=== PATIENT | male | born 1970 | race Caucasian/White ===

== ENCOUNTER 2019-05-15 04:03 | Inpatient (IN) | payer OTHER, SELFPAY ==
[2019-05-15] VITALS (16 sets, daily range): BP systolic 122–173; BP diastolic 54–89; PULSE 86–104; RESP 16–23; TEMP 37.2–39.3; O2SAT 86–95; BMI 51.0
--- NOTE | ~2019-05-15 | US_ITS ---
EXAMINATION: US venous doppler LE EXAM DATE: 05/15/2019 10:13 INDICATION: DVT. Hypoxia, respiratory abnormality. TECHNIQUE: Multiple grayscale, color flow and Doppler images of the lower extremity deep venous syste ms bilaterally were obtained and reviewed. There is no prior study for comparison. FINDINGS: Right side: The right common femoral, femoral and profunda veins demonstrate normal color flow, respi ratory variation, augmentation and compressibility. Compressibility, color flow confirmed within the right popliteal, posterior tibial, peroneal, and greater saphenous veins. Left side: The left common femoral, femoral and profunda veins demonstrate normal color flow, respira tory variation, augmentation and compressibility. Compressibility, color flow confirmed within the l eft popliteal, posterior tibial, peroneal, and greater saphenous veins. IMPRESSION: No lower extremity deep venous thrombosis bilaterally. Reviewed, dictated and finalized at location B. HER OPERATOR
--- NOTE | ~2019-05-15 | XR_ITS ---
EXAMINATION: XR chest 1V portable DATE: 05/15/2019 05:03 INDICATION: Hypoxia. Fever. TECHNIQUE: A single frontal view of the chest was obtained. COMPARISON: Chest CT 05/15/2019 FINDINGS: The lung volumes are small. There is mild atelectasis in the mid and lower lung zones. No p leural effusion or pneumothorax. Cardiomegaly is noted. IMPRESSION: 1. Small lung volumes with mild atelectasis in the mid and lower lung zones. 2. Cardiomegaly. Reviewed, dictated and finalized at location A. QUALITY SPECIALIST
--- NOTE | ~2019-05-15 | CT_ITS ---
EXAMINATION: CTA chest DATE: 05/15/2019 05:55 INDICATION: Hypoxia. TECHNIQUE: Computed tomographic angiography (CTA) of the chest was performed with 100 mL Omnipaque-35 0 intravenous contrast. Automated exposure control and iterative reconstruction technique were employ ed. The dose-length product was 1013.02 mGy-cm. Maximum intensity projection 3D-reconstructions of th e aorta and other arteries were constructed by the technologist on a separate workstation. COMPARISON: Chest single view 05/15/2019 FINDINGS: Motion artifact is noted. The lung volumes are small. A calcified left lung nodule and calc ified left hilar lymph nodes are consistent with old granulomatous disease. There is mild atelectasis bilaterally. No pleural effusion. Cardiomegaly is noted. No pericardial effusion. There is poor cont rast opacification. Thoracic aorta is normal in caliber. There is bilateral gynecomastia. There is mi ld mediastinal lymphadenopathy. For example, a right paratracheal node measures 18 x 14 mm. There are bridging endplate osteophytes at multiple levels in the spine, consistent with diffuse idiopathic sk eletal hyperostosis (DISH). There is moderate thoracic spondylosis. IMPRESSION: 1. Normal caliber thoracic aorta. Poor contrast opacification, which is nondiagnostic for evaluation of the pulmonary arteries. If there is clinical concern for pulmonary embolism, repeat CTA is recomme nded. 2. Small lung volumes with mild atelectasis. 3. Mild mediastinal lymphadenopathy, likely reactive. 4. Cardiomegaly. Reviewed, dictated and finalized at location A. OR CLINICAL SAS PROGRAMMER IMPRESSION: 1. Normal caliber thoracic aorta. Poor contrast opacification, which is nondiag nostic for evaluation of the pulmonary arteries. If there is clinical concern f or pulmonary embolism, repeat CTA is recommended. 2. Small lung volumes with mild atelectasis. 3. Mild mediastinal lymphadenopathy, likely reactive. 4. Cardiomegaly.
--- NOTE | 2019-05-15 03:59 | ED.GENADULT ---
HPI - General Adult General Chief complaint: Fever Stated complaint: fever Source: patient and EMS Mode of arrival: EMS Limitations: no limitations History of Present Illness HPI narrative: Patient is a 48-year-old male who presents from [facility] for evaluation of fever, increasing oxygen requirement. Patient reportedly has a history of diabetic foot ulcers, he is seen at outside nursing and rehabilitation, and developed fever to 105 ?F this evening per the nursing staff. Patient was given a gram of Tylenol around 1:45 in the morning, but was noted to have hypoxia. Patient reportedly desaturated down to the 70s on room air, and typically only requires oxygen at night. Patient denies any chest pain or shortness of breath. He is alert and oriented to person, place, and time, he reports fever and feeling warm, but denies any belly pain. Patient is able to ambulate from the stretcher to the bed. Related Data Allergies Allergy/AdvReac Type Severity Reaction Status Date / Time No Known Allergies Allergy Verified 05/15/19 04:15 Review of Systems Review of Systems: Narrative: CONSTITUTIONAL: Reports fever and chills EYES: Denies visual changes, redness, or discharge. ENT: Denies rhinorrhea, congestion, sore throat, or otalgia. CARDIOVASCULAR: Denies chest pain, palpitations, reports leg swelling bilaterally RESPIRATORY: Denies cough or dyspnea. GASTROINTESTINAL: Denies abdominal pain, nausea, vomiting, or diarrhea. GENITOURINARY: Denies dysuria or hematuria. SKIN: Reports wounds to bilateral feet MUSCULOSKELETAL: Denies back pain, joint pain, or myalgia. NEUROLOGIC: Denies headache, numbness, or weakness. 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 EYES: PERRLA and EOMI. ENT: Nares clear, no rhinorrhea or epistaxis. Mucous membranes dry, lips somewhat purplish in appearance NECK: Supple. CHEST: No respiratory distress, coarse breath sounds bilaterally, no use of accessory muscles to breathe, no wheezing HEART: Tachycardic rate and regular rhythm. No murmur heard. Normal peripheral pulses. ABDOMEN: Obese abdomen, ventral abdominal wall hernia. Soft, nontender, nondistended, normal active bowel sounds. EXTREMITIES: Normal range of motion. Pitting edema to the knees bilaterally. SKIN: Erythema to the bilateral great toes, with evidence of ingrown toe removal surgeries bilaterally. No purulent discharge. NEURO: No focal deficits. Alert and oriented x3. Patient is ambulatory with a slightly unsteady gait, able to transfer himself. Does require partial assist. Course Course Emergency Course: Patient presented to the emergency department for evaluation of fever, increased oxygen requirement, per staff at the facility patient is not on any oxygen throughout the day and only requires 2 L at night for sleep apnea. At the time of initial assessment, ABCs are intact and vital signs are stable. Patient with tachycardia, very mild tachypnea, no respiratory distress. He is febrile. His oxygen saturation on room air is 66% with a good waveform. Patient was placed on 6 L nasal cannula with improvement in oxygen saturation to 93%. Patient has no wheezing, has very shallow aeration, very difficult to appreciate due to patient's body habitus. He has not been reporting any cough, unknown if the patient has some form of developmental delay, but is also a little bit difficult to obtain a history from him. He is denying any pain really any symptoms aside fever. Patient does have chronic venou
--- NOTE | 2019-05-15 04:10 | ECG_ITS ---
Measurements Intervals [place] Rate: 99 P: 24 MO: 116 QRS: 83 QRSD: 106 T: 30 QT: 327 QTc: 420 Interpretive Statements SINUS RHYTHM WITH SHORT MO INTERVAL BORDERLINE ECG Electronically Signed On 05-15-2019 6:49:07 SMALL ENGINE TRAINER by Abel Ortiz D.O.
[2019-05-15] MEDS: SODIUM CHLORIDE 0.9% IV 1,000 ML 999 ML IV CONT ×2 (04:33→04:35)
--- NOTE | 2019-05-15 04:35 | PC.NURSE ---
Per EDP Chel, begin NS bolus at 2000mL NS STAT.
[2019-05-15 04:40] LABS: Basophils Absolute Auto 0.1 K/mm3 (0.0-0.1); Basophils Percent Auto 0.4 % (0.2-1.2); Eosinophils Absolute Auto 0.4 K/mm3 (0-0.3); Eosinophils Percent Auto 2.3 % (0-4.4); Hematocrit 41.3 % (42.0-52.0); Hemoglobin 12.4 g/dL (14.0-18.0); Immature Granulocyte Percent A 0.6 % (0-0.5); Lymphocytes Absolute Auto 0.67 K/mm3 (0.9-3.2); Lymphocytes Percent Auto 4.2 % (18.3-44.2); Mean Corpuscular Hemoglobin 26.9 pg (26-34); Mean Corpuscular Volume 89.6 fl (80-100); Mean Platelet Volume 11.6 fl (7.4-10.4); Monocytes Absolute Auto 1.1 K/mm3 (0.1-0.6); Monocytes Percent Auto 7.1 % (2.6-8.5); Neutrophils Absolute Auto 13.6 K/mm3 (1.3-6.7); Neutrophils Percent Auto 85.4 % (45.5-73.1); Platelet Count Result 266 k/mm3 (150-375); Red Blood Count 4.61 M/mm3 (4.6-6.20); Red Cell Distribution Width 14.6 % (11.5-14.5)
[2019-05-15 04:44] LABS: Alveolar/Arterial O2 Gradient 187.2 mmHg; Base Excess ABG 4.4 mEq/l (+/-2.0); Carboxyhemoglobin 0.7 % THb (0-2.0); Fractional Inspired Oxygen 44 %; HCO3 ABG 30.9 mEq/l (22.0-26.0); Methemoglobin ABG 0.4 %THb (0-1.5); Oxygen Content ABG 16.4 %vol (16.0-22.0); Oxygen Saturation ABG 91.7 % (95.0-100.0); Oxyhemoglobin 90.3 % THb (90.0-100.0); PCO2 ABG 54.5 mmHg (35.0-45.0); PO2 ABG 64.4 mmHg (80.0-100.0); PO2 FiO2 Ratio Arterial Blood 1.46 %; Reduced Hemoglobin 8.6 %THb (0-5.0); Total Hemoglobin 12.9 g/dL (12.0-18.0); pH ABG 7.372 (7.350-7.450)
[2019-05-15 04:45] LABS: Device NASAL CANNULA; Modified Allen's Test Pass; Site Drawn RIGHT RADIAL
[2019-05-15 04:52] LABS: Lactic Acid Reflex 1.5 mmol/L (0.7-2.1)
--- NOTE | 2019-05-15 04:55 | PC.NURSE ---
Patient in radiology.
[2019-05-15 05:37] LABS: Blood Urea Nitrogen 22 mg/dL (8-26); Estimated CRCL calculation 114 ml/min; Estimated Glomerular Filt Rate > 60
[2019-05-15 05:45] LABS: INR 3.2; Partial Thromboplastin Time 38.9 SECONDS (22.3-36.8); Prothrombin Time 32.1 Seconds (11.1-14.7)
[2019-05-15 05:49] LABS: Alanine Aminotransferase 17 U/L (4-50); Albumin Level 3.3 g/dL (3.5-5.1); Alkaline Phosphatase 105 U/L (38-126); Aspartate Amino Transferase 24 U/L (17-59); Bilirubin,Total 0.5 mg/dL (0.2-1.3); Blood Urea Nitrogen 19 mg/dL (9-20); CRP 1.6 mg/dL (<1.0); Calcium 7.8 mg/dL (8.4-10.2); Carbon Dioxide 30 mmol/L (22-30); Chloride 100 mmol/L (98-107); Estimated CRCL calculation 114 ml/min; Estimated Glomerular Filt Rate > 60; Glucose 130 mg/dL (75-110); Potassium 4.7 mmol/L (3.4-5.0); Sodium 140 mmol/L (137-145)
[2019-05-15 05:55] LABS: NT Pro B Type Natriuretic Pept 293 PG/ML (5-100)
[2019-05-15 05:59] LABS: Troponin I < 0.012 ng/mL (0.000-0.034)
[2019-05-15 06:24] LABS: Add Urine Microscopic? YES; Appearance Urine Clear (Clear); Bacteria Urine Trace /hpf; Bilirubin Urine Negative (Negative); Blood Urine 1+ (Negative); Color Urine Yellow (Yellow); Glucose Urine UA Negative (Negative); Ketones Urine Negative (Negative); Leukocyte Esterase Ur Negative LEU/UL (Negative); Nitrate Urine Negative (Negative); Protein Urine 3+ mg/dL (Negative); Specific Grav Ur 1.013 (1.001-1.035); Urobilinogen Urine Negative mg/dL (<2.0)
--- NOTE | 2019-05-15 07:52 | ADMGEN ---
This patient, Ulices Canas, was admitted to 3 [facility] Surg Room 317-01. Patient/family oriented to hospital policies and general routines including ID bracelet, bed and alarms, visiting hours, pain management, procedures, bathroom and other care routines, personal items, smoking policy, room service/diet, and visiting hours. Valuables list has been completed. Information on how to activate the Rapid Response Team has been discussed. Patient/Family are encouraged to report perceived risks to care and to ask questions if they do not understand what they are told or what they should do.
[2019-05-15 11:23] LABS: Basophils Absolute Auto 0.1 K/mm3 (0.0-0.1); Basophils Percent Auto 0.5 % (0.2-1.2); Eosinophils Percent Auto 0.1 % (0-4.4); Hematocrit 39.1 % (42.0-52.0); Hemoglobin 11.6 g/dL (14.0-18.0); Immature Granulocyte Absolute 0.93 K/mm3 (0.00-0.031); Lymphocytes Absolute Auto 0.65 K/mm3 (0.9-3.2); Lymphocytes Percent Auto 2.8 % (18.3-44.2); Mean Corpuscular HGB Conc 29.7 g/dl (32-36); Mean Corpuscular Hemoglobin 27.4 pg (26-34); Mean Corpuscular Volume 92.4 fl (80-100); Mean Platelet Volume 11.9 fl (7.4-10.4); Monocytes Absolute Auto 1.6 K/mm3 (0.1-0.6); Neutrophils Percent Auto 85.6 % (45.5-73.1); Platelet Count Result 224 k/mm3 (150-375); Red Blood Count 4.23 M/mm3 (4.6-6.20); White Blood Count 23.4 K/mm3 (4.5-10.0)
[2019-05-15 11:35] LABS: Blood Urea Nitrogen 20 mg/dL (9-20); Calcium 7.9 mg/dL (8.4-10.2); Carbon Dioxide 30 mmol/L (22-30); Chloride 100 mmol/L (98-107); Estimated CRCL calculation 104 ml/min; Estimated Glomerular Filt Rate 59; Glucose 135 mg/dL (75-110); Magnesium 1.5 mg/dL (1.6-2.3); Potassium 5.1 mmol/L (3.4-5.0); Sodium 138 mmol/L (137-145)
[2019-05-15] MEDS: GABAPENTIN 300 MG CAPSULE PO ×2 (13:49→22:31)
[2019-05-15] MEDS: carvediloL 3.125 MG TABLET PO ×2 (13:50→20:58)
[2019-05-15] MEDS: AMLODIPINE BESYLATE 5 MG TABLET 10 MG PO (13:50)
[2019-05-15] MEDS: MAGNESIUM OXIDE 400 MG TABLET PO (13:50)
--- NOTE | 2019-05-15 14:58 | PM.IMHP ---
H&P: HPI History of Present Illness Chief complaint: sepsis/respiratory failure Narrative: Ulices Canas is a 48 year old male morbidly obese mentally challenged a resident of assisted was sent to emergency department with hypoxia and fever, patient denies any complaint of chest pain shortness of breath runny nose cough congestion, complains of nausea denies any abdominal pain vomiting or diarrhea, denies any rash however patient does have significant stasis dermatitis and bilateral lower extremity. Patient is mentally challenged and is a poor historian. 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 COPD (chronic obstructive pulmonary disease) Essential hypertension Gastroesophageal reflux disease without esophagitis Morbid obesity Sleep apnea Social History Social History Smoking status: Unknown if ever smoked Alcohol intake: never Substance use: never Gender identity (if verbalized by the patient): Male Spiritual care concerns: No Agree to blood products: Yes Meds Home Medications and Allergies Home Medications Medication Instructions Recorded Confirmed Type amlodipine 10 mg PO DAILY 05/15/19 05/15/19 History carvedilol 3.125 mg PO BID 05/15/19 05/15/19 History gabapentin 300 mg PO TID 05/15/19 05/15/19 History insulin glargine [Lantus U-100 13 unit SUBCUT BID 05/15/19 05/15/19 History Insulin] insulin regular human 1 sliding scale dose SUBCUT 05/15/19 05/15/19 History USEASDIRECTD loperamide 2 mg PO Q4H PRN 05/15/19 05/15/19 History magnesium oxide 400 mg PO DAILY 05/15/19 05/15/19 History warfarin [Coumadin] 6 mg PO DAILY 05/15/19 05/15/19 History Allergies Allergy/AdvReac Type Severity Reaction Status Date / Time No Known Allergies Allergy Verified 05/15/19 04:15 Vital Signs Vital Signs - 24 hr 05/15/19 04:02 05/15/19 04:04 05/15/19 05:10 Temperature 102.8 F H Pulse Rate 104 H 98 Respiratory Rate 23 H 23 H 20 Blood Pressure 173/75 H 141/68 H Pulse Oximetry 93 93 05/15/19 06:14 05/15/19 06:59 05/15/19 13:50 Temperature 99.0 F 99.4 F Pulse Rate 99 95 95 Respiratory Rate 20 21 H Blood Pressure 146/74 H 145/89 H Pulse Oximetry 93 93 Exam Narrative: Exam Narrative: Patient is morbidly obese Const: General: comfortable and no acute distress HENMT: General nose exam: Normal nares present Mouth: Yes moist mucous membranes Eyes: General: appearance normal, both eyes and all related structures Sclera: sclerae normal Neck: Neck: supple Resp: Other: Bilateral fair air entry with minimal rhonchi and wheezing Cardio: Rate: regular rate Rhythm: regular rhythm GI: Other: Morbidly obese bowel sounds are positive nontender Skin: Other: Bilateral lower extremity morbidly obese stasis dermatitis some broken skin and cellulitis Neuro: Speech: normal speech Sensory Exam: normal sensation Extrem: Other: Bilateral lower extremity morbidly obese stasis dermatitis broken skin and cellulitis Psych: Affect: Anxious affect present H&P: Results Labs Labs: Short CBC 05/15/19 05/15/19 Range/Units 04:30 11:12 WBC 16.0 H 23.4 H (4.5-10.0) K/mm3 Hgb 12.4 L 11.6 L (14.0-18.0) g/dL Hct 41.3 L 39.1 L (42.0-52.0) % Plt Count 266 224 (150-375) k/mm3 BMP 05/15/19 05/15/19 05/15/19 05:22 05:35 11:11 Sodium 140 138 Potassium 4.7 5.1 H Chloride 100 100 Carbon Dioxide 30 30 BUN 19 22 20 Creatinine 1.20 1.20 1.30 Glucose 130 H 135 H Calcium 7.8 L 7.9 L Cardiac Enzymes 05/15/19 Range/Units 05:22 Troponin I < 0.012 (0.000-0.034) ng/mL Liver Function 05/15/19 Range/Units 05:22 Total Bilirubin 0.5 (0.2-1.3) mg/dL
[2019-05-15] MEDS: ALBUTEROL SULFATE NEB 2.5 MG/0.5 ML INH 5 MG INHALATION ×2 (15:41→20:51)
[2019-05-15] MEDS: IPRATROPIUM BR 0.02% INH SOLN 0.5 MG/2.5 ML VIAL INHALATION ×2 (15:41→20:50)
[2019-05-15 17:16] LABS: Hemoglobin A1C 7.3 % (<5.7)
[2019-05-15 17:29] LABS: Glucose Point of Care 137 (65-105)
[2019-05-15] MEDS: INSULIN GLARGINE (*BKC) 100 UNITS/ML 13 UNITS SUB-Q (20:59)
[2019-05-15] MEDS: ACETAMINOPHEN 325 MG TABLET 650 MG PO (22:19)
[2019-05-15] MEDS: ONDANSETRON INJ 4 MG/2 ML VIAL IV PUSH (22:19)
[2019-05-15 23:23] LABS: Glucose Point of Care 146 (65-105)
[2019-05-16] VITALS (12 sets, daily range): BP systolic 124–150; BP diastolic 65–74; PULSE 80–100; RESP 16–20; TEMP 36.7–36.8; O2SAT 90–93
[2019-05-16] MEDS: ALBUTEROL SULFATE NEB 2.5 MG/0.5 ML INH 5 MG INHALATION ×3 (02:22→15:05)
[2019-05-16] MEDS: IPRATROPIUM BR 0.02% INH SOLN 0.5 MG/2.5 ML VIAL INHALATION ×3 (02:22→15:05)
[2019-05-16] MEDS: GABAPENTIN 300 MG CAPSULE PO ×3 (05:21→21:12)
[2019-05-16 06:02] LABS: Basophils Absolute Auto 0.1 K/mm3 (0.0-0.1); Basophils Percent Auto 0.4 % (0.2-1.2); Hematocrit 37.8 % (42.0-52.0); Hemoglobin 11.4 g/dL (14.0-18.0); Immature Granulocyte Absolute 0.36 K/mm3 (0.00-0.031); Immature Granulocyte Percent A 2.4 % (0-0.5); Lymphocytes Absolute Auto 0.88 K/mm3 (0.9-3.2); Lymphocytes Percent Auto 5.9 % (18.3-44.2); Mean Corpuscular HGB Conc 30.2 g/dl (32-36); Mean Corpuscular Volume 89.6 fl (80-100); Mean Platelet Volume 11.5 fl (7.4-10.4); Monocytes Absolute Auto 0.8 K/mm3 (0.1-0.6); Monocytes Percent Auto 5.2 % (2.6-8.5); Neutrophils Absolute Auto 12.8 K/mm3 (1.3-6.7); Neutrophils Percent Auto 86.1 % (45.5-73.1); Platelet Count Result 205 k/mm3 (150-375); Red Blood Count 4.22 M/mm3 (4.6-6.20); Red Cell Distribution Width 15.1 % (11.5-14.5); White Blood Count 14.9 K/mm3 (4.5-10.0)
[2019-05-16 06:20] LABS: INR 2.8
[2019-05-16 06:21] LABS: Blood Urea Nitrogen 24 mg/dL (9-20); Calcium 7.6 mg/dL (8.4-10.2); Carbon Dioxide 31 mmol/L (22-30); Chloride 96 mmol/L (98-107); Estimated CRCL calculation 85 ml/min; Estimated Glomerular Filt Rate 46; Glucose 132 mg/dL (75-110); Potassium 4.6 mmol/L (3.4-5.0); Sodium 137 mmol/L (137-145)
[2019-05-16 08:35] LABS: Glucose Point of Care 191 (65-105)
[2019-05-16] MEDS: MAGNESIUM OXIDE 400 MG TABLET PO (08:59)
[2019-05-16] MEDS: carvediloL 3.125 MG TABLET PO ×2 (08:59→21:11)
[2019-05-16] MEDS: INSULIN GLARGINE (*BKC) 100 UNITS/ML 13 UNITS SUB-Q (09:00)
[2019-05-16] MEDS: AMLODIPINE BESYLATE 5 MG TABLET 10 MG PO (09:00)
[2019-05-16 12:30] LABS: Glucose Point of Care 128 (65-105)
--- NOTE | 2019-05-16 13:53 | PM.IMPN ---
Progress Note: A&P Assessment and Plan (1) Sepsis: Qualifiers: Sepsis acute organ dysfunction status: unspecified Sepsis type: sepsis due to unspecified organism Qualified Code(s): A41.9 - Sepsis, unspecified organism Code(s): A41.9 - Sepsis, unspecified organism Status: Acute Assessment and Plan: Patient met the criteria upon arrival most likely secondary to cellulitis of lower extremity, patient was started on Cefepime and vancomycin, Group c strep on BC. 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: Code(s): I82.5Y3 - Chronic embolism and thrombosis of unspecified deep veins of proximal lower extremity, bilateral Status: Acute Assessment and Plan: CTA of the chest did not show any pulmonary emboli nor lower extremity Doppler showed any DVT will continue Coumadin and monitor INR (5) COPD (chronic obstructive pulmonary disease): Code(s): J44.9 - Chronic obstructive pulmonary disease, unspecified Status: Acute Assessment and Plan: Patient with history of COPD presented with hypoxia will continue on updraft added Pulmicort, continue ABX (6) Essential hypertension: Code(s): I10 - Essential (primary) hypertension Status: Acute Assessment and Plan: Will continue home regimen and monitor (7) Morbid obesity: Code(s): E66.01 - Morbid (severe) obesity due to excess calories Status: Acute Assessment and Plan: Patient will benefit from dietary consult PT OT (8) Sleep apnea: Code(s): G47.30 - Sleep apnea, unspecified Status: Acute Assessment and Plan: Will continue CPAP Subjective Date/time seen: 05/16/19 13:53 Interval history: Ulices Canas is a 48 year old male morbidly obese mentally challenged a resident of [facility] was sent to emergency department with hypoxia and fever, patient denies any complaint of chest pain shortness of breath. Looks tired and unwell today. Sob at rest, unable to give good history. I have advised him to eat better otherwise his sugars will run low. Pt to try ensures if he cannot eat. Review of Systems Review of Systems: All systems reviewed & are unremarkable except as noted in HPI and below Constitutional: Constitutional: Reports fatigue, Reports lethargy and Reports weakness ENT: Reports system reviewed and no additional complaints, except as documented Cardiovascular: Cardiovascular: Denies no additional cardiovascular complaints Respiratory: Respiratory: Reports chest congestion, Reports cough, Reports dyspnea and Reports wheezing Gastrointestinal: Comments: loss of appetite Neurologic: Comments: History of MR Psychiatric: Psychiatric: Denies no additional psychiatric complaints Exam Narrative: Exam Narrative: Patient is morbidly obese, tired, sweaty, unwell appearing Const: General: comfortable and no acute distress HENMT: General nose exam: Normal nares present Mouth: Yes moist mucous membranes Eyes: General: appearance normal, both eyes and all related structures Sclera: sclerae normal Neck: Neck: supple Resp: Other: Bilateral fair air entry decreased BL Cardio: Rate: regular rate Rhythm: regular rhythm GI: Other: Morbidly obese Soft NT Skin: Other: Bilateral lower extremity obesity stasis Neuro: Speech: normal speech Sensory Exam: normal sensation Extrem: Other: Bilateral lower
[2019-05-16] MEDS: ONDANSETRON INJ 4 MG/2 ML VIAL IV PUSH (17:23)
[2019-05-16] MEDS: WARFARIN (*PBKC) 3 MG TABLET 6 MG PO (17:23)
[2019-05-16 18:09] LABS: Glucose Point of Care 126 (65-105)
[2019-05-16 18:25] LABS: Vancomycin Trough 24.7 ug/mL (10.0-20.0)
--- NOTE | 2019-05-16 23:09 | PCRCNOTE ---
Window of time for administration has passed. See next scheduled administration.
[2019-05-17] VITALS (14 sets, daily range): BP systolic 131–169; BP diastolic 68–89; PULSE 75–88; RESP 18–20; TEMP 36.7–37.3; O2SAT 90–96
[2019-05-17] MEDS: ALBUTEROL SULFATE NEB 2.5 MG/0.5 ML INH 5 MG INHALATION ×4 (03:03→21:57)
[2019-05-17] MEDS: IPRATROPIUM BR 0.02% INH SOLN 0.5 MG/2.5 ML VIAL INHALATION ×4 (03:04→21:58)
[2019-05-17] MEDS: GABAPENTIN 300 MG CAPSULE PO ×3 (05:26→20:54)
[2019-05-17 06:24] LABS: Basophils Absolute Auto 0.1 K/mm3 (0.0-0.1); Basophils Percent Auto 0.4 % (0.2-1.2); Eosinophils Absolute Auto 0.5 K/mm3 (0-0.3); Eosinophils Percent Auto 2.8 % (0-4.4); Hematocrit 37.3 % (42.0-52.0); Immature Granulocyte Absolute 0.27 K/mm3 (0.00-0.031); Immature Granulocyte Percent A 1.6 % (0-0.5); Lymphocytes Absolute Auto 1.22 K/mm3 (0.9-3.2); Lymphocytes Percent Auto 7.4 % (18.3-44.2); Mean Corpuscular HGB Conc 29.5 g/dl (32-36); Mean Corpuscular Hemoglobin 26.8 pg (26-34); Mean Platelet Volume 11.3 fl (7.4-10.4); Monocytes Absolute Auto 1.6 K/mm3 (0.1-0.6); Monocytes Percent Auto 9.8 % (2.6-8.5); Neutrophils Absolute Auto 12.8 K/mm3 (1.3-6.7); Platelet Count Result 191 k/mm3 (150-375); Red Cell Distribution Width 15.8 % (11.5-14.5); White Blood Count 16.4 K/mm3 (4.5-10.0)
[2019-05-17 06:40] LABS: INR 2.5; Prothrombin Time 26.1 Seconds (11.1-14.7)
[2019-05-17 06:44] LABS: Blood Urea Nitrogen 32 mg/dL (9-20); Calcium 7.9 mg/dL (8.4-10.2); Carbon Dioxide 30 mmol/L (22-30); Chloride 95 mmol/L (98-107); Estimated CRCL calculation 72 ml/min; Estimated Glomerular Filt Rate 38; Glucose 117 mg/dL (75-110); Potassium 4.5 mmol/L (3.4-5.0); Sodium 136 mmol/L (137-145)
[2019-05-17] MEDS: MAGNESIUM OXIDE 400 MG TABLET PO (08:59)
[2019-05-17] MEDS: carvediloL 3.125 MG TABLET PO ×2 (08:59→20:41)
[2019-05-17] MEDS: AMLODIPINE BESYLATE 5 MG TABLET 10 MG PO (09:00)
[2019-05-17 09:04] LABS: Glucose Point of Care 99 (65-105)
[2019-05-17 12:45] LABS: Glucose Point of Care 172 (65-105)
--- NOTE | 2019-05-17 15:19 | PM.IMPN ---
Progress Note: A&P Assessment and Plan (1) Sepsis: Qualifiers: Sepsis acute organ dysfunction status: unspecified Sepsis type: sepsis due to unspecified organism Qualified Code(s): A41.9 - Sepsis, unspecified organism Code(s): A41.9 - Sepsis, unspecified organism Status: Acute Assessment and Plan: Patient met the criteria upon arrival most likely secondary to cellulitis of lower extremity, patient was started on Cefepime and vancomycin, Group c strep on BC. WCC is 16. 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: Code(s): I82.5Y3 - Chronic embolism and thrombosis of unspecified deep veins of proximal lower extremity, bilateral Status: Acute Assessment and Plan: CTA of the chest did not show any pulmonary emboli nor lower extremity Doppler showed any DVT will continue Coumadin and monitor INR (5) COPD (chronic obstructive pulmonary disease): Code(s): J44.9 - Chronic obstructive pulmonary disease, unspecified Status: Acute Assessment and Plan: Patient with history of COPD presented with hypoxia will continue on updraft added Pulmicort, continue ABX (6) Essential hypertension: Code(s): I10 - Essential (primary) hypertension Status: Acute Assessment and Plan: Will continue home regimen and monitor (7) Morbid obesity: Code(s): E66.01 - Morbid (severe) obesity due to excess calories Status: Acute Assessment and Plan: Patient will benefit from dietary consult PT OT (8) Sleep apnea: Code(s): G47.30 - Sleep apnea, unspecified Status: Acute Assessment and Plan: Will continue CPAP Subjective Date/time seen: 05/17/19 15:19 Interval history: Ulices Canas is a 48 year old male morbidly obese mentally challenged a resident of [facility] was sent to emergency department with hypoxia and fever, patient denies any complaint of chest pain shortness of breath. Pt looks slightly better today, pt talking more, and is off oxygen. Pt is eating his breakfast and having ensures. Review of Systems Review of Systems: All systems reviewed & are unremarkable except as noted in HPI and below Exam Narrative: Exam Narrative: Patient is morbidly obese, tired Const: General: comfortable and no acute distress HENMT: General nose exam: Normal nares present Mouth: Yes moist mucous membranes Eyes: General: appearance normal, both eyes and all related structures Sclera: sclerae normal Neck: Neck: supple Resp: Other: Bilateral fair air entry decreased BL Cardio: Rate: regular rate Rhythm: regular rhythm GI: Other: Morbidly obese Soft NT Skin: Other: Bilateral lower extremity obesity stasis Neuro: Speech: normal speech Sensory Exam: normal sensation Extrem: Other: Bilateral lower extremity stasis Psych: Affect: Anxious affect present Objective Data Vital Signs Vital Signs: Vital Signs - 24 hr 05/16/19 20:26 05/16/19 21:11 05/16/19 22:00 Temperature 36.8 C Pulse Rate 96 96 96 Respiratory Rate 18 20 Blood Pressure 131/68 Pulse Oximetry 91 93 05/17/19 03:04 05/17/19 03:05 05/17/19 03:17 Temperature Pulse Rate 75 84 Respiratory Rate 20 20 Blood Pressure Pulse Oximetry 91 05/17/19 06:00 05/17/19 08:59 05/17/19 09:12 Temperature 37.3 C Pulse Rate 85 88 83 Respiratory Rate 20 20 Blood Pressure 131/68 Pulse O
[2019-05-17 17:50] LABS: Glucose Point of Care 95 (65-105)
[2019-05-17 17:52] LABS: Vancomycin Random 14.4 ug/mL (10-20)
[2019-05-17] MEDS: EUCERIN CREAM 120 GM JAR 1 APPLIC TOPICAL (20:41)
[2019-05-17 21:37] LABS: Glucose Point of Care 108 (65-105)
[2019-05-18] VITALS (13 sets, daily range): BP systolic 121–128; BP diastolic 57–69; PULSE 77–88; RESP 14–20; TEMP 36.8–37.3; O2SAT 92–96
[2019-05-18] MEDS: ALBUTEROL SULFATE NEB 2.5 MG/0.5 ML INH 5 MG INHALATION ×4 (02:44→20:57)
[2019-05-18] MEDS: IPRATROPIUM BR 0.02% INH SOLN 0.5 MG/2.5 ML VIAL INHALATION ×4 (02:44→20:57)
[2019-05-18 06:04] LABS: Basophils Absolute Auto 0.1 K/mm3 (0.0-0.1); Basophils Percent Auto 0.5 % (0.2-1.2); Eosinophils Absolute Auto 0.9 K/mm3 (0-0.3); Hematocrit 36.4 % (42.0-52.0); Hemoglobin 10.9 g/dL (14.0-18.0); Immature Granulocyte Absolute 0.05 K/mm3 (0.00-0.031); Immature Granulocyte Percent A 0.4 % (0-0.5); Lymphocytes Absolute Auto 2.04 K/mm3 (0.9-3.2); Lymphocytes Percent Auto 15.5 % (18.3-44.2); Mean Corpuscular HGB Conc 29.9 g/dl (32-36); Mean Corpuscular Hemoglobin 26.9 pg (26-34); Mean Corpuscular Volume 89.9 fl (80-100); Mean Platelet Volume 11.3 fl (7.4-10.4); Monocytes Absolute Auto 1.5 K/mm3 (0.1-0.6); Monocytes Percent Auto 11.1 % (2.6-8.5); Neutrophils Absolute Auto 8.6 K/mm3 (1.3-6.7); Neutrophils Percent Auto 65.5 % (45.5-73.1); Platelet Count Result 186 k/mm3 (150-375); Red Blood Count 4.05 M/mm3 (4.6-6.20); Red Cell Distribution Width 15.5 % (11.5-14.5); White Blood Count 13.1 K/mm3 (4.5-10.0)
[2019-05-18 06:21] LABS: INR 2.4; Prothrombin Time 25.6 Seconds (11.1-14.7)
[2019-05-18 06:22] LABS: Blood Urea Nitrogen 37 mg/dL (9-20); Calcium 8.3 mg/dL (8.4-10.2); Carbon Dioxide 33 mmol/L (22-30); Chloride 95 mmol/L (98-107); Estimated CRCL calculation 72 ml/min; Estimated Glomerular Filt Rate 38; Glucose 122 mg/dL (75-110); Potassium 4.6 mmol/L (3.4-5.0); Sodium 137 mmol/L (137-145)
[2019-05-18] MEDS: GABAPENTIN 300 MG CAPSULE PO ×3 (06:47→20:01)
[2019-05-18] MEDS: carvediloL 3.125 MG TABLET PO ×2 (10:03→20:00)
[2019-05-18] MEDS: AMLODIPINE BESYLATE 5 MG TABLET 10 MG PO (10:03)
[2019-05-18] MEDS: MAGNESIUM OXIDE 400 MG TABLET PO (10:04)
--- NOTE | 2019-05-18 11:12 | PM.IMPN ---
Progress Note: A&P Assessment and Plan (1) Sepsis: Qualifiers: Sepsis acute organ dysfunction status: unspecified Sepsis type: sepsis due to unspecified organism Qualified Code(s): A41.9 - Sepsis, unspecified organism Code(s): A41.9 - Sepsis, unspecified organism Status: Acute Assessment and Plan: Patient met the criteria upon arrival most likely secondary to cellulitis of lower extremity, patient was started on Cefepime and vancomycin, Group c strep on BC. WCC is 13. Pt to continue on currently iv ABX, (2) Respiratory failure: Qualifiers: Chronicity: acute Respiratory failure complication: hypoxia Qualified Code(s): J96.01 - Acute respiratory failure with hypoxia Code(s): J96.90 - Respiratory failure, unspecified, unspecified whether with hypoxia or hypercapnia Status: Acute Assessment and Plan: Patient with morbid obesity history of COPD pulmonary emboli most likely resulted hypoxia will continue updraft, continue to wean off oxygen (3) Cellulitis: Code(s): L03.90 - Cellulitis, unspecified Status: Acute Assessment and Plan: Chronic venous stasis, with cellultis, wound team consulted. 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: Code(s): I82.5Y3 - Chronic embolism and thrombosis of unspecified deep veins of proximal lower extremity, bilateral Status: Acute Assessment and Plan: CTA of the chest did not show any pulmonary emboli nor lower extremity Doppler showed any DVT will continue Coumadin and monitor INR (5) COPD (chronic obstructive pulmonary disease): Code(s): J44.9 - Chronic obstructive pulmonary disease, unspecified Status: Acute Assessment and Plan: Patient with history of COPD presented with hypoxia will continue on updraft added Pulmicort, continue ABX, continiue to wean off oxygen pt encouraged to walk (6) Essential hypertension: Code(s): I10 - Essential (primary) hypertension Status: Acute Assessment and Plan: Will continue home regimen and monitor (7) Morbid obesity: Code(s): E66.01 - Morbid (severe) obesity due to excess calories Status: Acute Assessment and Plan: Patient will benefit from dietary consult PT OT (8) Sleep apnea: Code(s): G47.30 - Sleep apnea, unspecified Status: Acute Assessment and Plan: Will continue CPAP Subjective Date/time seen: 05/18/19 11:12 Interval history: Ulices Canas is a 48 year old male morbidly obese mentally challenged a resident [facility] was sent to emergency department with hypoxia and fever, patient denies any complaint of chest pain shortness of breath. Pt looks slightly eating more , more alert. Pt adviced physical theraphy today. Review of Systems Review of Systems: All systems reviewed & are unremarkable except as noted in HPI and below Respiratory: Respiratory: Reports chest congestion, Reports cough and Reports dyspnea Exam Narrative: Exam Narrative: Patient is morbidly obese, tired Const: General: comfortable and no acute distress HENMT: General nose exam: Normal nares present Mouth: Yes moist mucous membranes Eyes: General: appearance normal, both eyes and all related structures Sclera: sclerae normal Neck: Neck: supple Resp: Other: Bilateral fair air entry decreased BL Cardio: Rate: regular rate Rhythm: regular rhythm GI: Other: Morbidly obese Soft NT Skin: Other: Bilateral lower extremity obesity stasis Neuro: Speech: normal speech Sensory Exam: normal sensation Extrem: Other: Bilateral lower extremity stasis Psych: Affect: normal affect Objective Data Vital Signs Vital Signs: Vital Signs - 24 hr 05/17/19 14:00 05/17/19 14:55 05/17/19 15:07 Temperature 36.7 C Pulse Rate 83 88 85 Respiratory Rate 20 20 20 Blood Pressure 169/89 H Pulse Oximetry 96 05/17/19 20:41 05/17/19 21:58 05/17/19 22:0
[2019-05-18 11:36] LABS: Glucose Point of Care 143 (65-105)
[2019-05-18] MEDS: EUCERIN CREAM 120 GM JAR 1 APPLIC TOPICAL ×2 (11:46→20:00)
[2019-05-18] MEDS: INSULIN GLARGINE (*BKC) 100 UNITS/ML 13 UNITS SUB-Q ×2 (11:49→20:05)
[2019-05-18] MEDS: SILVERGEL (ELTA) 45 ML 1 APPLIC TOPICAL (17:33)
[2019-05-18 17:37] LABS: Glucose Point of Care 134 (65-105)
[2019-05-18 21:42] LABS: Glucose Point of Care 135 (65-105)
[2019-05-19] VITALS (13 sets, daily range): BP systolic 140–160; BP diastolic 72–79; PULSE 58–96; RESP 18–20; TEMP 36.3–36.9; O2SAT 90–98
[2019-05-19] MEDS: IPRATROPIUM BR 0.02% INH SOLN 0.5 MG/2.5 ML VIAL INHALATION ×4 (02:15→22:00)
[2019-05-19] MEDS: ALBUTEROL SULFATE NEB 2.5 MG/0.5 ML INH 5 MG INHALATION ×4 (02:15→22:00)
[2019-05-19] MEDS: GABAPENTIN 300 MG CAPSULE PO ×3 (06:03→21:11)
[2019-05-19 06:25] LABS: Basophils Absolute Auto 0.1 K/mm3 (0.0-0.1); Basophils Percent Auto 0.7 % (0.2-1.2); Eosinophils Percent Auto 8.3 % (0-4.4); Hematocrit 38.5 % (42.0-52.0); Hemoglobin 11.3 g/dL (14.0-18.0); Immature Granulocyte Absolute 0.07 K/mm3 (0.00-0.031); Immature Granulocyte Percent A 0.6 % (0-0.5); Lymphocytes Absolute Auto 2.33 K/mm3 (0.9-3.2); Lymphocytes Percent Auto 18.7 % (18.3-44.2); Mean Corpuscular HGB Conc 29.4 g/dl (32-36); Mean Corpuscular Hemoglobin 26.8 pg (26-34); Mean Corpuscular Volume 91.2 fl (80-100); Mean Platelet Volume 11.7 fl (7.4-10.4); Monocytes Absolute Auto 1.6 K/mm3 (0.1-0.6); Monocytes Percent Auto 12.6 % (2.6-8.5); Neutrophils Absolute Auto 7.4 K/mm3 (1.3-6.7); Neutrophils Percent Auto 59.1 % (45.5-73.1); Platelet Count Result 217 k/mm3 (150-375); Red Blood Count 4.22 M/mm3 (4.6-6.20); Red Cell Distribution Width 15.4 % (11.5-14.5); White Blood Count 12.5 K/mm3 (4.5-10.0)
[2019-05-19 06:34] LABS: Blood Urea Nitrogen 45 mg/dL (9-20); Calcium 8.7 mg/dL (8.4-10.2); Carbon Dioxide 34 mmol/L (22-30); Chloride 99 mmol/L (98-107); Estimated CRCL calculation 80 ml/min; Estimated Glomerular Filt Rate 43; Glucose 140 mg/dL (75-110); Potassium 4.5 mmol/L (3.4-5.0); Sodium 136 mmol/L (137-145)
[2019-05-19 06:35] LABS: Prothrombin Time 22.1 Seconds (11.1-14.7)
[2019-05-19] MEDS: INSULIN GLARGINE (*BKC) 100 UNITS/ML 13 UNITS SUB-Q ×2 (08:28→21:06)
[2019-05-19] MEDS: MAGNESIUM OXIDE 400 MG TABLET PO (08:32)
[2019-05-19] MEDS: carvediloL 3.125 MG TABLET PO ×2 (08:32→21:11)
[2019-05-19] MEDS: SILVERGEL (ELTA) 45 ML 1 APPLIC TOPICAL (08:32)
[2019-05-19] MEDS: AMLODIPINE BESYLATE 5 MG TABLET 10 MG PO (08:32)
[2019-05-19] MEDS: EUCERIN CREAM 120 GM JAR 1 APPLIC TOPICAL ×2 (08:33→21:11)
[2019-05-19 10:18] LABS: Glucose Point of Care 126 (65-105)
[2019-05-19 13:17] LABS: Glucose Point of Care 140 (65-105)
--- NOTE | 2019-05-19 13:57 | PM.IMPN ---
Progress Note: A&P Assessment and Plan (1) Sepsis: Qualifiers: Sepsis acute organ dysfunction status: unspecified Sepsis type: sepsis due to unspecified organism Qualified Code(s): A41.9 - Sepsis, unspecified organism Code(s): A41.9 - Sepsis, unspecified organism Status: Acute Assessment and Plan: Patient met the criteria upon arrival most likely secondary to cellulitis of lower extremity, patient was started on Cefepime and vancomycin, Group c strep on BC. WCC is 13. Pt to continue on currently iv ABX, hopeful discharge tomorrow (2) Respiratory failure: Qualifiers: Chronicity: acute Respiratory failure complication: hypoxia Qualified Code(s): J96.01 - Acute respiratory failure with hypoxia Code(s): J96.90 - Respiratory failure, unspecified, unspecified whether with hypoxia or hypercapnia Status: Acute Assessment and Plan: Patient with morbid obesity history of COPD pulmonary emboli most likely resulted hypoxia will continue updraft, continue to wean off oxygen (3) Cellulitis: Code(s): L03.90 - Cellulitis, unspecified Status: Acute Assessment and Plan: Chronic venous stasis, with cellultis, wound team consulted. 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: Code(s): I82.5Y3 - Chronic embolism and thrombosis of unspecified deep veins of proximal lower extremity, bilateral Status: Acute Assessment and Plan: CTA of the chest did not show any pulmonary emboli nor lower extremity Doppler showed any DVT will continue Coumadin and monitor INR (5) COPD (chronic obstructive pulmonary disease): Code(s): J44.9 - Chronic obstructive pulmonary disease, unspecified Status: Acute Assessment and Plan: Patient with history of COPD presented with hypoxia will continue on updraft added Pulmicort, continue ABX, continiue to wean off oxygen pt encouraged to walk (6) Essential hypertension: Code(s): I10 - Essential (primary) hypertension Status: Acute Assessment and Plan: Will continue home regimen and monitor (7) Morbid obesity: Code(s): E66.01 - Morbid (severe) obesity due to excess calories Status: Acute Assessment and Plan: Patient will benefit from dietary consult PT OT (8) Sleep apnea: Code(s): G47.30 - Sleep apnea, unspecified Status: Acute Assessment and Plan: Will continue CPAP Subjective Date/time seen: 05/19/19 13:57 Interval history: Ulices Canas is a 48 year old male morbidly obese mentally challenged a resident of retirement was sent to emergency department with hypoxia and fever, patient denies any complaint of chest pain shortness of breath. Pt looks better. Pt still needing 3 liters of oxygen. Pt adviced physical theraphy today. Will continue to wean off oxygen. Review of Systems Review of Systems: All systems reviewed & are unremarkable except as noted in HPI and below ENT: Reports system reviewed and no additional complaints, except as documented Cardiovascular: Cardiovascular: Denies no additional cardiovascular complaints and Reports dyspnea Respiratory: Respiratory: Reports chest congestion, Reports cough, Reports dyspnea and Reports wheezing Neurologic: Reports weakness Psychiatric: Psychiatric: Denies no additional psychiatric complaints Endocrine: Endocrine: Reports fatigue Allergic/Immunologic: Allergic/Immunologic: Reports wheezing Exam Narrative: Exam Narrative: Patient is morbidly obese, tired Const: General: comfortable and no acute distress HENMT: General nose exam: Normal nares present Mouth: Yes moist mucous membranes Eyes: General: appearance normal, both eyes and all related structures Sclera: sclerae normal Neck: Neck: supple Resp: Other: Bilateral fair air entry decreased BL, no wheezes heard Cardio: Rate: regular rate Rhythm: regular rhythm GI: Other: Morbidly obes
[2019-05-19 18:33] LABS: Glucose Point of Care 118 (65-105)
[2019-05-19 21:26] LABS: Glucose Point of Care 110 (65-105)
[2019-05-20] VITALS (11 sets, daily range): BP systolic 141–173; BP diastolic 78–88; PULSE 69–80; RESP 16–20; TEMP 36.7–36.9; O2SAT 80–93
[2019-05-20] MEDS: ALBUTEROL SULFATE NEB 2.5 MG/0.5 ML INH 5 MG INHALATION ×3 (03:10→14:36)
[2019-05-20] MEDS: IPRATROPIUM BR 0.02% INH SOLN 0.5 MG/2.5 ML VIAL INHALATION ×3 (03:10→14:37)
--- NOTE | 2019-05-20 03:20 | PCRCNOTE ---
PT INITIAL PRE TREATMENT SPO2 79% ON 4LPM NC. NOTIFIED EMMA CHICAS. PT SPO2 INCREASED TO 90% WITH NO INTERVENTION, THEN DROPPED TO 84%. IT WAS THEN NOTICED THAT PT WAS HAVING PERIODS OF APNEA. H&P NOTE THAT PT HAS LEONIDAS BUT THERE ARE NO ORDERS FOR CPAP AND PT STATES THAT HE DOES NOT USE ONE AT HOME.
[2019-05-20] MEDS: GABAPENTIN 300 MG CAPSULE PO ×2 (05:40→14:12)
[2019-05-20 06:34] LABS: Basophils Absolute Auto 0.1 K/mm3 (0.0-0.1); Basophils Percent Auto 0.9 % (0.2-1.2); Eosinophils Percent Auto 8.7 % (0-4.4); Hematocrit 36.3 % (42.0-52.0); Hemoglobin 10.7 g/dL (14.0-18.0); Immature Granulocyte Absolute 0.14 K/mm3 (0.00-0.031); Immature Granulocyte Percent A 1.2 % (0-0.5); Lymphocytes Absolute Auto 2.86 K/mm3 (0.9-3.2); Lymphocytes Percent Auto 24.5 % (18.3-44.2); Mean Corpuscular HGB Conc 29.5 g/dl (32-36); Mean Corpuscular Hemoglobin 26.4 pg (26-34); Mean Corpuscular Volume 89.6 fl (80-100); Mean Platelet Volume 12.1 fl (7.4-10.4); Monocytes Absolute Auto 1.2 K/mm3 (0.1-0.6); Monocytes Percent Auto 10.6 % (2.6-8.5); Neutrophils Absolute Auto 6.3 K/mm3 (1.3-6.7); Neutrophils Percent Auto 54.1 % (45.5-73.1); Platelet Count Result 203 k/mm3 (150-375); Red Blood Count 4.05 M/mm3 (4.6-6.20); White Blood Count 11.7 K/mm3 (4.5-10.0)
[2019-05-20 06:53] LABS: Blood Urea Nitrogen 42 mg/dL (9-20); Calcium 8.8 mg/dL (8.4-10.2); Carbon Dioxide 35 mmol/L (22-30); Chloride 99 mmol/L (98-107); Estimated CRCL calculation 91 ml/min; Estimated Glomerular Filt Rate 50; Glucose 125 mg/dL (75-110); Potassium 4.1 mmol/L (3.4-5.0); Sodium 138 mmol/L (137-145)
[2019-05-20 06:56] LABS: INR 1.6; Prothrombin Time 18.4 Seconds (11.1-14.7)
[2019-05-20 08:11] LABS: Glucose Point of Care 110 (65-105)
[2019-05-20] MEDS: INSULIN GLARGINE (*BKC) 100 UNITS/ML 13 UNITS SUB-Q (09:05)
[2019-05-20] MEDS: AMLODIPINE BESYLATE 5 MG TABLET 10 MG PO (09:07)
[2019-05-20] MEDS: EUCERIN CREAM 120 GM JAR 1 APPLIC TOPICAL (09:07)
[2019-05-20] MEDS: SILVERGEL (ELTA) 45 ML 1 APPLIC TOPICAL (09:07)
[2019-05-20] MEDS: carvediloL 3.125 MG TABLET PO (09:08)
[2019-05-20] MEDS: MAGNESIUM OXIDE 400 MG TABLET PO (09:08)
[2019-05-20 11:57] LABS: Glucose Point of Care 142 (65-105)
--- NOTE | 2019-05-20 13:24 | PM.DS ---
DS: Diagnosis Admitting Diagnosis Admitting Diagnosis: Sepsis, unspecified organism Discharge Diagnosis (1) Sepsis: Qualifiers: Sepsis acute organ dysfunction status: unspecified Sepsis type: sepsis due to unspecified organism Qualified Code(s): A41.9 - Sepsis, unspecified organism Code(s): A41.9 - Sepsis, unspecified organism Status: Acute Assessment and Plan: Patient met the criteria upon arrival most likely secondary to cellulitis of lower extremity, patient was started on Cefepime and vancomycin, Group c strep on BC. WCC has normalised. Pt is stable for discharge on clindamycin for 5 more days. (2) Respiratory failure: Qualifiers: Chronicity: acute Respiratory failure complication: hypoxia Qualified Code(s): J96.01 - Acute respiratory failure with hypoxia Code(s): J96.90 - Respiratory failure, unspecified, unspecified whether with hypoxia or hypercapnia Status: Acute Assessment and Plan: Patient with morbid obesity history of COPD pulmonary emboli most likely resulted hypoxia will continue updraft, and oxygen, pt is currently on 1 liter. (3) Cellulitis: Code(s): L03.90 - Cellulitis, unspecified Status: Acute Assessment and Plan: Chronic venous stasis, with cellultis, wound team consulted, wound care to be followed in SNF. 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 (5) COPD (chronic obstructive pulmonary disease): Code(s): J44.9 - Chronic obstructive pulmonary disease, unspecified Status: Acute Assessment and Plan: Patient with history of COPD presented with hypoxia will continue on updraft added Pulmicort, continue ABX, pt is on 1 liter of oxygen. pt encouraged to walk (6) Essential hypertension: Code(s): I10 - Essential (primary) hypertension Status: Acute Assessment and Plan: Will continue home regimen and monitor (7) Morbid obesity: Code(s): E66.01 - Morbid (severe) obesity due to excess calories Status: Acute Assessment and Plan: Patient will benefit from dietary consult for weight loss encouraged to ambulate. (8) Sleep apnea: Code(s): G47.30 - Sleep apnea, unspecified Status: Acute Assessment and Plan: Pt will need sleep study will benefit from CPAP. DS: Summary Time Spent with Patient Time attestation: Total time spent providing and/or coordinating discharge services:40 minutes on day of discharge Exam Narrative: Exam Narrative: Patient is morbidly obese, tired Const: General: comfortable and no acute distress HENMT: General nose exam: Normal nares present Mouth: Yes moist mucous membranes Eyes: General: appearance normal, both eyes and all related structures Sclera: sclerae normal Neck: Neck: supple Resp: Other: Clear lungs Cardio: Rate: regular rate Rhythm: regular rhythm GI: Other: Morbidly obese Soft NT Skin: Other: Bilateral lower extremity obesity stasis Neuro: Speech: normal speech Sensory Exam: normal sensation Extrem: Other: Bilateral lower extremity stasis Psych: Affect: normal affect DS: Data Data Completed and Pending Labs on day of discharge: Labs from last 24 hours 05/20/19 05/20/19 05/20/19 11:51 07:53 05:52 WBC RBC Hgb Hct MCV MCH MCHC RDW Plt Count MPV Immature Gran % (Auto) Neut % (Auto) Lymph % (Auto) [place] % (Auto) Eos % (Auto) Baso % (Auto) Lymph # (Auto) [place] # (Auto) Eos # (Auto) Baso # (Auto) Abs Immat Gran (auto) Absolute Neuts (auto) Absolute Nucleated RBC Nuclea
== END 2019-05-20 14:55 | DRG 720 ==
LOC: ANHED 06:34 → ANH3MEDSUR 10:13
PROVIDERS: Family Medicine; Admitting Provider Internal Medicine; Emergency Provider Emergency Medicine; Visit Provider Family Medicine
DX: A41.9 Sepsis, unspecified organism (principal); L03.115 Cellulitis of right lower limb; J96.01 Acute respiratory failure with hypoxia; E66.01 Morbid (severe) obesity due to excess calories; Z68.43 Body mass index [BMI] 50.0-59.9, adult; I87.2 Venous insufficiency (chronic) (peripheral); J44.9 Chronic obstructive pulmonary disease, unspecified; G47.30 Sleep apnea, unspecified; I10 Essential (primary) hypertension; K21.9 Gastro-esophageal reflux disease without esophagitis; I82.5Y3 Chronic embolism and thrombosis of unspecified deep veins of proximal lower extremity, bilateral; F79 Unspecified intellectual disabilities; D72.829 Elevated white blood cell count, unspecified
CPT/HCPCS: 36415; 36600; 71045; 71275; 80048; 80053; 80202; 81001; 82375; 82805; 83036; 83050; 83605; 83735; 83880; 84484; 85025; 85610; 85730; 86140; 87040; 87086; 87147; 87186; 87804; 93005; 93970; 94640; 96365; 96367; 97116; 97161; 97165; 97530; 97535; 99291; A9270; J0692; J1815; J2405; J3370; J7030; Q9967

== ENCOUNTER 2020-03-02 08:26 | Inpatient (IN) | payer OTHER, SELFPAY ==
[2020-03-02] VITALS (12 sets, daily range): BP systolic 113–167; BP diastolic 60–89; PULSE 80–108; RESP 15–22; TEMP 36.2–36.7; O2SAT 57–97
--- NOTE | ~2020-03-02 | US_ITS ---
EXAMINATION: US venous doppler [facility] DATE: 03/04/2020 14:47 INDICATION: Lower limb edema. TECHNIQUE: Grayscale ultrasound images without and with compression and Doppler ultrasound images of the bilateral lower extremity veins were obtained. COMPARISON: Ultrasound 05/15/2019 FINDINGS: The visualized portions of right common femoral vein, profunda (deep) femoral vein, femoral vein, pop liteal vein, peroneal veins, posterior tibial veins, and greater saphenous vein outflow are patent. The visualized portions of left common femoral vein, profunda femoral vein, femoral vein, popliteal v ein, peroneal veins, posterior tibial veins, and greater saphenous vein outflow are patent. IMPRESSION: 1. No deep venous thrombosis. Reviewed, dictated and finalized at location A. ER STACKER OPERATOR
--- NOTE | ~2020-03-02 | XR_ITS ---
EXAMINATION: XR chest 1V portable DATE: 03/02/2020 08:47 INDICATION: Shortness of breath TECHNIQUE: frontal view of the chest was obtained. COMPARISON: Chest radiograph and CT dated 05/15/2019 FINDINGS: Cardiomegaly with pulmonary vascular congestion but without elena pulmonary edema. No focal airspace opacities, pleural effusion or pneumothorax. Chondroid matrix at the right humeral head consistent wi th enchondroma. IMPRESSION: 1. Cardiomegaly with pulmonary vascular congestion. Reviewed, dictated and finalized at location A. TECHNOLOGIST
--- NOTE | 2020-03-02 08:32 | ECG_ITS ---
Measurements Intervals [place] Rate: 106 P: 28 CT: 133 QRS: 101 QRSD: 91 T: 29 QT: 314 QTc: 418 Interpretive Statements SINUS TACHYCARDIA RIGHT AXIS DEVIATION BASELINE WANDER- I, II, III, AVR, AVF ABNORMAL ECG Electronically Signed On 03-02-2020 9:32:46 DELIVERY MGR by Abel Ortiz D.O.
[2020-03-02 08:47] LABS: Basophils Absolute Auto 0.1 K/mm3 (0.0-0.1); Basophils Percent Auto 0.7 % (0.2-1.2); Eosinophils Absolute Auto 0.6 K/mm3 (0-0.3); Eosinophils Percent Auto 5.2 % (0-4.4); Hematocrit 35.5 % (42.0-52.0); Hemoglobin 11.3 g/dL (14.0-18.0); Immature Granulocyte Absolute 0.44 K/mm3 (0.00-0.031); Immature Granulocyte Percent A 4.2 % (0-0.5); Lymphocytes Absolute Auto 1.99 K/mm3 (0.9-3.2); Lymphocytes Percent Auto 18.8 % (18.3-44.2); Mean Corpuscular HGB Conc 31.8 g/dl (32-36); Mean Corpuscular Hemoglobin 29.1 pg (26-34); Mean Corpuscular Volume 91.5 fl (80-100); Mean Platelet Volume 11.2 fl (7.4-10.4); Monocytes Percent Auto 9.8 % (2.6-8.5); Neutrophils Absolute Auto 6.5 K/mm3 (1.3-6.7); Neutrophils Percent Auto 61.3 % (45.5-73.1); Nucleated Red Blood Cells Absolute Auto 0.1 K/mm3 (0.0-0.012); Nucleated Red Blood Cells Perc 0.7 % (0.0-0.2); Platelet Count Result 196 k/mm3 (150-375); Red Blood Count 3.88 M/mm3 (4.6-6.20); Red Cell Distribution Width 14.7 % (11.5-14.5); White Blood Count 10.6 K/mm3 (4.5-10.0)
--- NOTE | 2020-03-02 08:53 | ED.GENADULT ---
HPI - General Adult General Chief complaint: Shortness of Breath/Dyspnea Stated complaint: low 02 Time Seen by Provider: 03/02/20 08:43 Source: patient Limitations: no limitations History of Present Illness HPI narrative: Patient is 49 years old white male, correction telling me they brought him to the emergency room today because he found his oxygenation is low. Patient denying any symptoms. Patient usually on 1 to 2 L of oxygen all the time for COPD. Patient denies any fever, chills, nausea, vomiting, chest pain, shortness of breath, coughing, headache. Related Data Home Medications Medication Instructions Recorded Confirmed Lantus U-100 Insulin 13 unit SUBCUT BID 05/15/19 05/15/19 amlodipine 10 mg PO DAILY 05/15/19 05/15/19 carvedilol 3.125 mg PO BID 05/15/19 05/15/19 gabapentin 300 mg PO TID 05/15/19 05/15/19 insulin regular human 1 sliding scale dose SUBCUT 05/15/19 05/15/19 USEASDIRECTD loperamide 2 mg PO Q4H PRN 05/15/19 05/15/19 magnesium oxide 400 mg PO DAILY 05/15/19 05/15/19 albuterol sulfate INHALATION 03/02/20 cetirizine 10 mg PO DAILY 03/02/20 furosemide 03/02/20 gentamicin TOPICAL 03/02/20 melatonin 5 mg PO HS 03/02/20 polysaccharide iron complex 150 mg PO DAILY 03/02/20 [Poly-Iron] rivaroxaban [Xarelto] 2.5 mg PO BID 03/02/20 Allergies Allergy/AdvReac Type Severity Reaction Status Date / Time No Known Allergies Allergy Verified 03/02/20 09:39 Review of Systems Review of Systems: Narrative: CONSTITUTIONAL: Denies fever, chills, or sweats. EYES: Denies visual changes, redness, or discharge. ENT: Denies rhinorrhea, congestion, sore throat, or otalgia. CARDIOVASCULAR: Denies chest pain, palpitations, or edema. RESPIRATORY: Denies cough or dyspnea. GASTROINTESTINAL: Denies abdominal pain, nausea, vomiting, or diarrhea. GENITOURINARY: Denies dysuria or hematuria. SKIN: Denies rash or itching. MUSCULOSKELETAL: Denies back pain, joint pain, or myalgia. NEUROLOGIC: Denies headache, numbness, or weakness. PSYCHIATRIC: Denies anxiety or depression. 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 Head: Normocephalic, nontraumatic Eyes: Clear conjunctiva ENT: Oropharynx normal, ears normal, nose normal Neck: Supple, nontender Chest and respiratory: Airway patent, no respiratory distress, no accessory muscle use Heart: Regular rate/rhythm Abdomen: Soft, nontender, no organomegaly, quiet bowel sounds Vascular: Normal peripheral pulses, normal capillary refill. Musculoskeletal: Normal range of motion, nontender back Neurologic: Alert and oriented ?3, HYDRAULIC PLUMBER is normal as tested, no gross motor deficit Course Course Emergency Course: Stable Vital Signs Vital signs: Vital Signs Temperature 36.6 C 03/02/20 08:25 Pulse Rate 108 H 03/02/20 08:25 Respiratory Rate 18 03/02/20 08:25 Blood Pressure 164/89 H 03/02/20 08:25 Puls
[2020-03-02 08:58] LABS: Anion Gap 2 mmol/L (8-16); Blood Urea Nitrogen 24 mg/dL (9-20); Calcium 8.3 mg/dL (8.4-10.2); Carbon Dioxide 36 mmol/L (22-30); Chloride 96 mmol/L (98-107); Estimated CRCL calculation 93 ml/min; Estimated Glomerular Filt Rate 54; Glucose 232 mg/dL (75-110); Potassium 4.4 mmol/L (3.4-5.0); Sodium 134 mmol/L (137-145)
[2020-03-02 09:07] LABS: NT Pro B Type Natriuretic Pept 876 PG/ML (5-100)
[2020-03-02 09:45] LABS: Alanine Aminotransferase 27 U/L (4-50); Albumin Level 3.4 g/dL (3.5-5.1); Alkaline Phosphatase 118 U/L (38-126); Aspartate Amino Transferase 21 U/L (17-59); Bilirubin,Total 0.8 mg/dL (0.2-1.3)
[2020-03-02 09:55] LABS: Alveolar/Arterial O2 Gradient 72.3 mmHg; Base Excess ABG 7.4 mEq/l (+/-2.0); Device NASAL CANNULA; Fractional Inspired Oxygen 28 %; HCO3 ABG 33.9 mEq/l (22.0-26.0); Modified Allen's Test Pass; Oxygen Content ABG 14.4 %vol (16.0-22.0); Oxygen Saturation ABG 90.2 % (95.0-100.0); Oxyhemoglobin 89.2 % THb (90.0-100.0); PCO2 ABG 57.1 mmHg (35.0-45.0); PO2 FiO2 Ratio Arterial Blood 2.14 %; Site Drawn RIGHT RADIAL; Total Hemoglobin 11.5 g/dL (12.0-18.0); pH ABG 7.391 (7.350-7.450)
[2020-03-02] MEDS: FUROSEMIDE INJ 40 MG/4 ML VIAL 60 MG IV PUSH (10:37)
[2020-03-02] MEDS: NITROGLYCERIN OINTMENT 1 INCH DOSE TRANSDERM (10:37)
[2020-03-02 11:06] LABS: Troponin I < 0.012 ng/mL (0.000-0.034)
--- NOTE | 2020-03-02 12:57 | ADMGEN ---
This patient, Ulices Canas, was admitted to 3 [facility] Surg Room 319-01. Patient/family oriented to hospital policies and general routines including ID bracelet, bed and alarms, visiting hours, pain management, procedures, bathroom and other care routines, personal items, smoking policy, room service/diet, and visiting hours. Information on how to activate the Rapid Response Team has been discussed. Patient/Family are encouraged to report perceived risks to care and to ask questions if they do not understand what they are told or what they should do.
--- NOTE | 2020-03-02 13:30 | PM.IMHP ---
H&P: HPI History of Present Illness Date/Time: 03/02/20 13:30 Chief complaint: Low oxygen level. Narrative: Ulices Canas is a 49-year-old [facility] resident who was brought in today with reports of low oxygen level. His medical history is significant for insulin-dependent diabetes with peripheral neuropathy, obstructive sleep apnea, chronic respiratory failure on 1 L, morbid obesity, obstructive sleep apnea, chronic kidney disease stage 3, anemia, and chronic lower extremity DVTs on long-term anticoagulation. He is typically on 1 to 2 L of oxygen due to underlying COPD and today it sounds like routine vital signs were taken, he was found to be hypoxic on his usual settings, and he was sent to the emergency department. Indeed he has been requiring a little bit more oxygen than usual, and chest x-ray today showed findings of cardiomegaly with pulmonary vascular congestion. For some reason, he was has tested for COVID-19 although he has no symptoms of such and reports that he already had it last month. Triage nurse documents that the patient reported some chest discomfort with inspiration however he denied that to both myself and the emergency department position. At the time my evaluation he appears comfortable and has absolutely no complaints. He specifically denies fever, chills, sweats, chest pain, pleuritic pain, palpitations, shortness of breath, cough, nausea, and vomiting. He has no known history of coronary artery disease but thinks he has been diagnosed with congestive heart failure. Review of Systems Review of Systems: Narrative: 12 systems were reviewed with pertinent positives and negatives as per HPI. He denies headache and neck ache. No sinus congestion, rhinorrhea, otalgia, or odynophagia. He denies anosmia and dysgeusia. No orthopnea or PND. He has chronic lower extremity edema which is unchanged. He tells me he is able to ambulate unassisted. No recent falls. Occasional loose stools but no overt diarrhea. When treated with steroids for COVID last month he had issues with hyperglycemia, of course, but that has improved. Except as documented, all other systems were reviewed and are negative. 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 Chronic obstructive pulmonary disease Congestive heart failure Current use of termite treater anticoagulation Diabetic peripheral neuropathy Essential hypertension Gastroesophageal reflux disease History of cellulitis Right lower extremity. Insulin dependent diabetes mellitus Morbid obesity Obstructive sleep apnea Osteoarthritis Surgical History Surgical History (Updated 03/02/20 @ 19:46 by Mariana Lovett PA-C) Amputation of one or more toes Amputation of several toes on both feet. Family History Family History Father Diabetes mellitus Mother DVT (deep venous thrombosis) Social History Social History (Updated 03/02/20 @ 19:47 by Mariana Lovett PA-C) Social History: The patient has been a resident at [facility] for about a year. He smoked remotely as a young man and quit in 1990. No alcohol or illicit substance use. He is not and has no children. All of his immediate family members are . He is not certain who he would want to name as his surrogate decision maker. At this time he is considered to be a full code. Smoking status: Former smoker Tobacco type: cigarettes Smoking end date: 04/04/90 Alcohol intake: never Substance use: never Gender identity (if verbalized by the patient): Male Spiritual care concerns: No Agree to blood products: Yes Meds Home Medications and Allergies Home Medications Medication Instructions
[2020-03-02 13:41] LABS: Troponin I 0.021 ng/mL (0.000-0.034)
[2020-03-02 16:32] LABS: Magnesium 1.3 mg/dL (1.6-2.3)
[2020-03-02 16:43] LABS: Troponin I 0.026 ng/mL (0.000-0.034)
[2020-03-02] MEDS: LORATADINE 10 MG TABLET PO (18:06)
[2020-03-02] MEDS: GABAPENTIN 300 MG CAPSULE PO (18:06)
[2020-03-02] MEDS: RIVAROXABAN 2.5 MG TABLET PO (18:06)
[2020-03-02 18:19] LABS: Glucose Point of Care 197 (65-105)
[2020-03-02] MEDS: MAGNESIUM SULF 1 GM/D5W 100 ML 1 GM/100 ML BAG IVPB (20:40)
[2020-03-02] MEDS: FUROSEMIDE INJ 40 MG/4 ML VIAL 20 MG IV PUSH (20:45)
[2020-03-02] MEDS: MELATONIN 5 MG TABLET PO (20:46)
[2020-03-02] MEDS: ALBUTEROL SULFATE (*SP) AEROSOL 1 PUFF INHALATION (20:50)
[2020-03-02] MEDS: INSULIN GLARGINE (*BKC) 100 UNITS/ML 15 UNITS SUB-Q (20:54)
[2020-03-02] MEDS: carvediloL 3.125 MG TABLET PO (21:20)
[2020-03-02 23:05] LABS: Glucose Point of Care 247 (65-105)
[2020-03-03] VITALS (10 sets, daily range): BP systolic 112–149; BP diastolic 55–76; PULSE 76–106; RESP 20–22; TEMP 36.2–36.6; O2SAT 90–96
--- NOTE | 2020-03-03 00:29 | PC.NURSE ---
2145 HS SNACK OFFERED, PT DECLINED.
--- NOTE | 2020-03-03 06:00 | ECG_ITS ---
Measurements Intervals [place] Rate: 90 P: 27 [place]: 144 QRS: 79 QRSD: 89 T: 58 QT: 363 QTc: 445 Interpretive Statements SINUS RHYTHM BASELINE ARTIFACT- V1, V3 NORMAL ECG Electronically Signed On 03-03-2020 8:51:28 [employer]ICOND[employer]CTOR BONDER by Abel Ortiz D.O.
[2020-03-03 06:39] LABS: Basophils Percent Auto 0.4 % (0.2-1.2); Eosinophils Absolute Auto 0.3 K/mm3 (0-0.3); Eosinophils Percent Auto 3.6 % (0-4.4); Hematocrit 30.6 % (42.0-52.0); Hemoglobin 9.5 g/dL (14.0-18.0); Immature Granulocyte Absolute 0.26 K/mm3 (0.00-0.031); Immature Granulocyte Percent A 2.9 % (0-0.5); Lymphocytes Absolute Auto 1.81 K/mm3 (0.9-3.2); Lymphocytes Percent Auto 19.9 % (18.3-44.2); Mean Corpuscular Hemoglobin 28.2 pg (26-34); Mean Corpuscular Volume 90.8 fl (80-100); Mean Platelet Volume 11.3 fl (7.4-10.4); Monocytes Absolute Auto 0.9 K/mm3 (0.1-0.6); Monocytes Percent Auto 10.1 % (2.6-8.5); Neutrophils Absolute Auto 5.8 K/mm3 (1.3-6.7); Neutrophils Percent Auto 63.1 % (45.5-73.1); Nucleated Red Blood Cells Absolute Auto 0.1 K/mm3 (0.0-0.012); Nucleated Red Blood Cells Perc 0.8 % (0.0-0.2); Platelet Count Result 183 k/mm3 (150-375); Red Blood Count 3.37 M/mm3 (4.6-6.20); Red Cell Distribution Width 14.8 % (11.5-14.5); White Blood Count 9.1 K/mm3 (4.5-10.0)
[2020-03-03 06:55] LABS: Anion Gap 5 mmol/L (8-16); Blood Urea Nitrogen 24 mg/dL (9-20); Calcium 7.3 mg/dL (8.4-10.2); Carbon Dioxide 37 mmol/L (22-30); Chloride 93 mmol/L (98-107); Estimated CRCL calculation 94 ml/min; Estimated Glomerular Filt Rate 59; Glucose 206 mg/dL (75-110); Magnesium 1.4 mg/dL (1.6-2.3); Potassium 3.8 mmol/L (3.4-5.0); Sodium 135 mmol/L (137-145)
[2020-03-03] MEDS: carvediloL 3.125 MG TABLET PO ×2 (08:33→20:57)
[2020-03-03] MEDS: GENTAMICIN SULFATE 0.1% OINT 15 GM TUBE 1 APPLIC TOPICAL (08:33)
[2020-03-03] MEDS: INSULIN GLARGINE (*BKC) 100 UNITS/ML 15 UNITS SUB-Q ×2 (08:35→21:00)
[2020-03-03] MEDS: FUROSEMIDE INJ 40 MG/4 ML VIAL 20 MG IV PUSH ×2 (08:37→21:00)
[2020-03-03] MEDS: ALBUTEROL SULFATE (*SP) AEROSOL 1 PUFF INHALATION ×3 (08:38→23:45)
[2020-03-03 09:12] LABS: Glucose Point of Care 198 (65-105)
[2020-03-03] MEDS: GABAPENTIN 300 MG CAPSULE PO ×3 (10:21→18:23)
[2020-03-03] MEDS: MAGNESIUM OXIDE 400 MG TABLET PO (10:21)
[2020-03-03] MEDS: amLODIPine BESYLATE 5 MG TABLET 10 MG PO (10:21)
[2020-03-03] MEDS: LORATADINE 10 MG TABLET PO (10:21)
[2020-03-03] MEDS: RIVAROXABAN 2.5 MG TABLET PO ×2 (10:21→18:23)
[2020-03-03] MEDS: POLYSACCHARIDE IRON COMPLEX 150 MG CAPSULE PO (10:22)
[2020-03-03] MEDS: INSULIN ASPART (*BKC) 100 UNITS/ML SUB-Q (13:11)
[2020-03-03 13:21] LABS: Glucose Point of Care 216 (65-105)
--- NOTE | 2020-03-03 17:11 | PM.IMPN ---
Progress Note: A&P Assessment and Plan (1) Acute and chronic respiratory failure with hypoxia: Code(s): J96.21 - Acute and chronic respiratory failure with hypoxia Status: Acute Assessment and Plan: Patient has baseline requirement of 1 L O2. Noted to have an episode of hypoxia and now requiring 2 L O2 per nasal cannula. Likely multifactorial to include CHF, COPD, and LEONIDAS. PE less likely given long-term anticoagulation use. No signs or symptoms to suggest pneumonia. CXR demonstrated cardiomegaly with pulmonary vascular congestion. Supplemental O2 as needed with goal saturation 90% or above. Wean to goal. (2) Congestive heart failure: Code(s): I50.9 - Heart failure, unspecified Status: Acute Assessment and Plan: Findings as above. BNP slightly elevated for his age at 89. He appears relatively euvolemic on exam. No obvious crackles noted. Continue diuresis with IV furosemide 20 mg bid. Monitor volume status and renal function closely while diuresing. Echo has been ordered. Await completion and evaluate results. (3) Chronic obstructive pulmonary disease: Code(s): J44.9 - Chronic obstructive pulmonary disease, unspecified Status: Acute Assessment and Plan: He does have some very faint wheezing and may have mild exacerbation. This may be contributing to hypoxia. Will begin PO prednisone. Given mild nature, I feel that IV steroids can be deferred at this time. No history of increased sputum production or other findings to indicate treatment with antibiotics Continue scheduled albuterol. Transition to nebs pending COVID results. Will also add symbicort. (4) Chronic kidney disease, stage 3: Code(s): N18.30 - Chronic kidney disease, stage 3 unspecified Status: Inactive Assessment and Plan: Renal function appears consistent with review of prior labs. Monitor renal function closely. Cautious diuresis. Monitor volume status closely. Renally dose medications and avoid nephrotoxins. (5) Chronic anemia: Code(s): D64.9 - Anemia, unspecified Status: Acute Assessment and Plan: H&H remaining stable. Vital signs stable and no signs of active bleeding. Monitor CBC closely Continue oral iron therapy (6) Insulin dependent diabetes mellitus: Status: Acute Assessment and Plan: A1c is 9.0. Blood sugars evaluated today and are elevated above target. Continue Accu-Cheks a.c. HS, SSI, and hypoglycemia protocol Continue his home Lantus In light of addition of steroids, will add 8 units NovoLog scheduled with meals. This will likely need to be uptitrated. Careful monitoring of glucose with steroids. (7) Obstructive sleep apnea: Code(s): G47.33 - Obstructive sleep apnea (adult) (pediatric) Status: Acute Assessment and Plan: Likely contributing to chronic respiratory failure. CPAP will be provided pending COVID test (8) Essential hypertension: Code(s): I10 - Essential (primary) hypertension Status: Acute (9) Current use of rn long term care anticoagulation: Code(s): Z79.01 - supervisor intermediates (current) use of anticoagulants Status: Acute Assessment and Plan: Maintained on Xarelto for history of chronic DVT in bilateral lower extremities. Continue Xarelto (10) Person under investigation for COVID-19: Code(s): Z20.828 - Contact with and (suspected) exposure to other viral communicable diseases Status: Acute Assessment and Plan: Patient tested in the ED. Aside from episode of hypoxia, he is otherwise asymptomatic. He has already had COVID recently, but unable to tell me exactly when. Await results Continue isolation precautions (11) Morbid obesity: Code(s): E66.01 - Morbid (severe) obesity due to excess calories Status: Acute Subjective Date/time seen: 03/03/20 17:11 Interval history: Date of service:
[2020-03-03 17:52] LABS: Glucose Point of Care 193 (65-105)
[2020-03-03 18:35] LABS: SARS-CoV-2 RNA PCR Negative
[2020-03-03] MEDS: MELATONIN 5 MG TABLET PO (20:57)
[2020-03-03 21:33] LABS: Glucose Point of Care 223 (65-105)
[2020-03-04] VITALS (9 sets, daily range): BP systolic 124–151; BP diastolic 57–79; PULSE 80–104; RESP 14–22; TEMP 36–37.3; O2SAT 90–94
[2020-03-04 06:46] LABS: Hematocrit 29.6 % (42.0-52.0); Hemoglobin 9.4 g/dL (14.0-18.0); Mean Corpuscular HGB Conc 31.8 g/dl (32-36); Mean Corpuscular Volume 91.4 fl (80-100); Mean Platelet Volume 11.3 fl (7.4-10.4); Platelet Count Result 178 k/mm3 (150-375); Red Blood Count 3.24 M/mm3 (4.6-6.20); White Blood Count 9.5 K/mm3 (4.5-10.0)
[2020-03-04 07:07] LABS: Blood Urea Nitrogen 25 mg/dL (9-20); Carbon Dioxide > 40 mmol/L (22-30); Chloride 92 mmol/L (98-107); Estimated CRCL calculation 88 ml/min; Estimated Glomerular Filt Rate 54; Glucose 207 mg/dL (75-110); Potassium 3.6 mmol/L (3.4-5.0); Sodium 137 mmol/L (137-145)
[2020-03-04 08:23] LABS: Glucose Point of Care 211 (65-105)
[2020-03-04] MEDS: PERFLUTREN LIPID MICROSPHERES 1.5 ML VIAL DILUTED TO 10 ML TOTAL VOLUME IV PUSH (09:09)
[2020-03-04] MEDS: LORATADINE 10 MG TABLET PO (09:16)
[2020-03-04] MEDS: amLODIPine BESYLATE 5 MG TABLET 10 MG PO (09:16)
[2020-03-04] MEDS: carvediloL 3.125 MG TABLET PO ×2 (09:17→20:19)
[2020-03-04] MEDS: FUROSEMIDE INJ 40 MG/4 ML VIAL 20 MG IV PUSH ×2 (09:17→20:19)
[2020-03-04] MEDS: POLYSACCHARIDE IRON COMPLEX 150 MG CAPSULE PO (09:18)
[2020-03-04] MEDS: MAGNESIUM OXIDE 400 MG TABLET PO (09:18)
[2020-03-04] MEDS: RIVAROXABAN 2.5 MG TABLET PO ×2 (09:18→16:53)
[2020-03-04] MEDS: GABAPENTIN 300 MG CAPSULE PO ×3 (09:18→16:53)
[2020-03-04] MEDS: GENTAMICIN SULFATE 0.1% OINT 15 GM TUBE 1 APPLIC TOPICAL (09:19)
[2020-03-04] MEDS: predniSONE 20 MG TABLET 40 MG PO (09:19)
[2020-03-04] MEDS: INSULIN GLARGINE (*BKC) 100 UNITS/ML 15 UNITS SUB-Q (09:19)
[2020-03-04] MEDS: INSULIN ASPART (*BKC) 100 UNITS/ML SUB-Q ×3 (09:21→17:28)
[2020-03-04] MEDS: INSULIN ASPART (*BKC) 100 UNITS/ML 8 UNITS SUB-Q ×2 (09:21→12:37)
[2020-03-04] MEDS: ALBUTEROL SULFATE (*SP) AEROSOL 1 PUFF INHALATION (09:25)
[2020-03-04 12:50] LABS: Glucose Point of Care 292 (65-105)
--- NOTE | 2020-03-04 13:32 | PM.IMPN ---
Progress Note: A&P Assessment and Plan (1) Acute and chronic respiratory failure with hypoxia: Code(s): J96.21 - Acute and chronic respiratory failure with hypoxia Status: Acute Assessment and Plan: Patient has baseline requirement of 1 L O2. Noted to have an episode of hypoxia. He initially required 3 liters and he is now requiring 2 L O2 per nasal cannula. Likely multifactorial to include CHF, COPD, and LEONIDAS. PE less likely given long-term anticoagulation use. No signs or symptoms to suggest pneumonia. CXR demonstrated cardiomegaly with pulmonary vascular congestion. Echocardiogram demonstrates HFpEF/grade II diastolic dysfunction. Supplemental O2 as needed with goal saturation 90% or above. Wean to goal. (2) Congestive heart failure: Code(s): I50.9 - Heart failure, unspecified Status: Acute Assessment and Plan: Findings as above. BNP slightly elevated for his age at 89. He does appear euvolemic today. Echocardiogram demonstrated showed normal LV systolic function with EF 65-70%, moderately increased LV wall thickness, grade II diastolic dysfunction, mild to moderate tricuspid valve regurgitation, and severe pulmonary hypertension. Continue diuresis with IV furosemide 20 mg bid. Plan to transition to PO lasix tomorrow. Monitor volume status and renal function closely while diuresing Continue daily weight, strict intake and output (3) Chronic obstructive pulmonary disease: Code(s): J44.9 - Chronic obstructive pulmonary disease, unspecified Status: Acute Assessment and Plan: He was noted to have wheezing with concern for mild COPD exacerbation which is likely contributing to hypoxia. PO prednisone was initiated 03/03 given mild nature and concomitant hyperglycemia No history of increased sputum production or other findings to indicate treatment with antibiotics Will switch to duonebs as COVID-19 testing is negative Continue symbicort which was initiated 03/03 (4) Chronic kidney disease, stage 3: Code(s): N18.30 - Chronic kidney disease, stage 3 unspecified Status: Inactive Assessment and Plan: Renal function appears consistent with review of prior labs. Monitor renal function closely. Continue cautious diuresis. Monitor volume status closely. Renally dose medications and avoid nephrotoxins. (5) Chronic anemia: Code(s): D64.9 - Anemia, unspecified Status: Acute Assessment and Plan: Chronic and normocytic. H&H remain stable. Vital signs are stable and there are no signs of active bleeding. Monitor CBC closely Continue oral iron therapy (6) Insulin dependent diabetes mellitus: Status: Acute Assessment and Plan: A1c is 9.0. Blood sugars are above target, likely due to steroid therapy. Continue ACHS glucose monitoring, sliding scale insulin, and hypoglycemia protocol Continue lantus, will increase to 20 units BID 8 units of NovoLog scheduled with meals was added 03/03. Will increase to 10 units. (7) Obstructive sleep apnea: Code(s): G47.33 - Obstructive sleep apnea (adult) (pediatric) Status: Acute Assessment and Plan: Likely contributing to chronic respiratory failure. Continue CPAP titrated to home settings. (8) Essential hypertension: Code(s): I10 - Essential (primary) hypertension Status: Acute Assessment and Plan: Blood pressures were reviewed and are well-controlled. Most recent BP was 125/66. 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 Continue Xarelto (10) Morbid obesity: Code(s): E66.01 - Morbid (severe) obesity due to excess calories
--- NOTE | 2020-03-04 15:14 | ECHO_ITS ---
Patient Info Name: Ulices Canas Age: 49 years : 1970 Gender: Male Ht: 73 in Wt: 369 lbs BSA: 3.02 m2 HR: 97 bpm BP: 130 / 60 mmHg Technical Quality: Good Exam Date: 03/04/2020 8:56 AM Exam Location: [facility] Patient Status: Outpatient Admit Date: 03/02/2020 Staff Ordering Physician: Mariana Lovett PA-C Senior Java Developer: Anant Verma, ANDER, RT Attending Provider: Erinn Leslie PA-C Referring Physician: Bony GLOVER; Exam Type: CA echo dop color flow w con Study Info Indications I50.9 - Heart failure, unspecified Complete two-dimensional, color flow and Doppler transthoracic echocardiogram is performed with contrast to opacify the left ventricle and to improve the deliniation of the left ventricle endocardial borders. Summary 1. Left ventricular chamber dimension is normal. 2. Definity contrast administered improved wall motion interpretation. 3. Left ventricular systolic function is normal, estimated at 65-70%. 4. There is moderately increased left ventricular wall thickness. 5. The left ventricular diastolic function is grade II diastolic dysfunction. 6. E/e' 8 is minimally elevated. 7. There is mild to moderate tricuspid valve regurgitation. 8. Severe pulmonary hypertension, estimated pulmonary arterial systolic pressure is 65 mmHg. 9. Dilated inferior vena cava with >50% collapse upon inspiration consistent with elevated right atrial pressure, 10 mmHg. Left Ventricle E/e' 8 is minimally elevated. Definity contrast administered improved wall motion interpretation. Left ventricular chamber dimension is normal. Left ventricular systolic function is normal, estimated at 65-70%. There is moderately increased left ventricular wall thickness. The left ventricular diastolic function is grade II diastolic dysfunction. Right Ventricle Right ventricular chamber dimension is normal. Right ventricular systolic function is normal. Left Atria Left atrial chamber dimension is normal. Right Atria Right atrial chamber dimension is normal. Aortic Valve The aortic valve is not well visualized. There is no aortic valve stenosis. There is no aortic valve regurgitation. Pulmonic Valve There is no pulmonic regurgitation. Mitral Valve There is no mitral valve stenosis. There is no mitral valve regurgitation. Tricuspid Valve There is mild to moderate tricuspid valve regurgitation. Severe pulmonary hypertension, estimated pulmonary arterial systolic pressure is 65 mmHg. Pericardium/Pleural There is no pericardial effusion. Inferior Vena Cava Dilated inferior vena cava with >50% collapse upon inspiration consistent with elevated right atrial pressure, 10 mmHg. Aorta The aortic root size at the sinus of Valsalva is normal. Left Ventricular Outflow Tract Name Value Normal LVOT 2D LVOT Diameter 2.24 cm LVOT Doppler LVOT Peak Gradient 5 mmHg LVOT Mean Gradient 3 mmHg LVOT VTI 20.40 cm LVOT VTI/AV VTI Ratio 0.73 LVOT Stroke Volume 80
[2020-03-04] MEDS: INSULIN ASPART (*BKC) 100 UNITS/ML 10 UNITS SUB-Q (17:29)
[2020-03-04 18:20] LABS: Glucose Point of Care 252 (65-105)
[2020-03-04] MEDS: MELATONIN 5 MG TABLET PO (20:19)
--- NOTE | 2020-03-04 20:51 | PC.NURSE ---
This patient, Ulices Canas, was transferred to [[id number]] on 03/04/20 at 2051. Personal belongings sent with patient. Report given to [Ivy]. Appropriate documentation sent with patient.
[2020-03-04 21:03] LABS: Glucose Point of Care 365 (65-105)
[2020-03-04] MEDS: INSULIN GLARGINE (*BKC) 100 UNITS/ML 20 UNITS SUB-Q (21:58)
[2020-03-05] VITALS (17 sets, daily range): BP systolic 141–145; BP diastolic 65–77; PULSE 76–92; RESP 11–20; TEMP 35.7–36.6; O2SAT 85–94
[2020-03-05] MEDS: IPRATROPIUM BR 0.02% INH SOLN 0.5 MG/2.5 ML VIAL INHALATION ×4 (03:09→22:31)
[2020-03-05] MEDS: GENTAMICIN SULFATE 0.1% OINT 15 GM TUBE 1 APPLIC TOPICAL ×2 (03:45→21:40)
[2020-03-05 06:48] LABS: Glucose Point of Care 354 (65-105)
[2020-03-05 07:20] LABS: Hematocrit 31.6 % (42.0-52.0); Hemoglobin 10.3 g/dL (14.0-18.0); Mean Corpuscular HGB Conc 32.6 g/dl (32-36); Mean Corpuscular Hemoglobin 29.9 pg (26-34); Mean Corpuscular Volume 91.9 fl (80-100); Mean Platelet Volume 11.3 fl (7.4-10.4); Platelet Count Result 197 k/mm3 (150-375); Red Blood Count 3.44 M/mm3 (4.6-6.20); Red Cell Distribution Width 14.6 % (11.5-14.5); White Blood Count 9.4 K/mm3 (4.5-10.0)
[2020-03-05 07:28] LABS: Blood Urea Nitrogen 32 mg/dL (9-20); Calcium 8.4 mg/dL (8.4-10.2); Carbon Dioxide > 40 mmol/L (22-30); Chloride 89 mmol/L (98-107); Estimated CRCL calculation 94 ml/min; Estimated Glomerular Filt Rate 59; Glucose 356 mg/dL (75-110); Magnesium 1.8 mg/dL (1.6-2.3); Potassium 4.2 mmol/L (3.4-5.0); Sodium 134 mmol/L (137-145)
[2020-03-05] MEDS: INSULIN ASPART (*BKC) 100 UNITS/ML SUB-Q ×3 (08:02→16:53)
[2020-03-05] MEDS: INSULIN ASPART (*BKC) 100 UNITS/ML 10 UNITS SUB-Q (08:03)
[2020-03-05] MEDS: amLODIPine BESYLATE 5 MG TABLET 10 MG PO (08:10)
[2020-03-05] MEDS: predniSONE 20 MG TABLET 40 MG PO (08:10)
[2020-03-05] MEDS: carvediloL 3.125 MG TABLET PO ×2 (08:11→20:13)
[2020-03-05] MEDS: FUROSEMIDE INJ 40 MG/4 ML VIAL 20 MG IV PUSH ×2 (08:21→20:15)
[2020-03-05] MEDS: GABAPENTIN 300 MG CAPSULE PO ×3 (08:22→16:52)
[2020-03-05] MEDS: POLYSACCHARIDE IRON COMPLEX 150 MG CAPSULE PO (08:23)
[2020-03-05] MEDS: LORATADINE 10 MG TABLET PO (08:24)
[2020-03-05] MEDS: RIVAROXABAN 2.5 MG TABLET PO ×2 (08:24→16:52)
[2020-03-05] MEDS: MAGNESIUM OXIDE 400 MG TABLET PO (08:24)
[2020-03-05] MEDS: INSULIN GLARGINE (*BKC) 100 UNITS/ML 20 UNITS SUB-Q (08:26)
[2020-03-05 12:05] LABS: Glucose Point of Care 332 (65-105)
[2020-03-05] MEDS: INSULIN ASPART (*BKC) 100 UNITS/ML 12 UNITS SUB-Q ×2 (12:40→16:55)
--- NOTE | 2020-03-05 13:46 | PM.IMPN ---
Progress Note: A&P Assessment and Plan (1) Acute and chronic respiratory failure with hypoxia: Code(s): J96.21 - Acute and chronic respiratory failure with hypoxia Status: Acute Assessment and Plan: Patient has baseline requirement of 1 L O2. He was sent in due to hypoxia and increased oxygen requirements at the longterm. He was initially requiring 3 liters and he was weaned to 1 liter today. Likely multifactorial to include CHF, COPD, and LEONIDAS which is currently untreated. CXR demonstrated cardiomegaly with pulmonary vascular congestion. Echocardiogram demonstrates HFpEF with grade II diastolic dysfunction. He will benefit from follow-up with pulmonology outpatient and I will refer him to see them. Continue supplemental O2 as needed with goal saturation 90% or above. (2) Congestive heart failure: Code(s): I50.9 - Heart failure, unspecified Status: Acute Assessment and Plan: Findings as above. BNP slightly elevated for his age at 89. He appears euvolemic and rales have resolved. Echocardiogram demonstrated showed normal LV systolic function with EF 65-70%, moderately increased LV wall thickness, grade II diastolic dysfunction, mild to moderate tricuspid valve regurgitation, and severe pulmonary hypertension. Continue diuresis and plan to resume PO lasix tomorrow Monitor volume status and renal function closely while diuresing Continue daily weight, strict intake and output (3) Chronic obstructive pulmonary disease: Code(s): J44.9 - Chronic obstructive pulmonary disease, unspecified Status: Acute Assessment and Plan: He was noted to have wheezing with concern for mild COPD exacerbation which is likely contributing to hypoxia. PO prednisone was initiated 03/03 given mild nature and concomitant hyperglycemia. Wheezing has resolved and will plan to taper No history of increased sputum production or other findings to indicate treatment with antibiotics Duonebs were initiated 03/04 as COVID-19 testing was negative Continue symbicort which was initiated 03/03 (4) Chronic kidney disease, stage 3: Code(s): N18.30 - Chronic kidney disease, stage 3 unspecified Status: Inactive Assessment and Plan: Renal function appears consistent with review of prior labs. Monitor renal function closely. Continue cautious diuresis. Monitor volume status closely. Renally dose medications and avoid nephrotoxins. (5) Chronic anemia: Code(s): D64.9 - Anemia, unspecified Status: Acute Assessment and Plan: Chronic and normocytic. H&H remain stable. Vital signs are stable and there are no signs of active bleeding. Monitor CBC closely Continue oral iron therapy (6) Insulin dependent diabetes mellitus: Status: Acute Assessment and Plan: A1c is 9.0. Blood sugars are above target, likely due to steroid therapy. Continue ACHS glucose monitoring, sliding scale insulin (increase to high dose), and hypoglycemia protocol Continue lantus which was increased to 25 units BID given concomitant steroid therapy 8 units of NovoLog scheduled with meals was added 03/03 and increased to 12 units given hyperglycemia (7) Obstructive sleep apnea: Code(s): G47.33 - Obstructive sleep apnea (adult) (pediatric) Status: Acute Assessment and Plan: Likely contributing to chronic respiratory failure. He relates that he does not currently have a CPAP so this is untreated at present. Echo shows pulmonary hypertension. I will order apnea link for tonight but he will need a formal outpatient sleep study so that he can get one for the longterm. He will also benefit from outpatient follow-up with pulmonology. Continue CPAP while inpatient (8) Essential hypertension: Code(s): I10 - Essential (primary) hypertension Status: Acute Assessment and Plan: Blood pressures were reviewed and are reas
[2020-03-05 16:45] LABS: Glucose Point of Care 219 (65-105)
[2020-03-05 20:11] LABS: Glucose Point of Care 247 (65-105)
[2020-03-05] MEDS: MELATONIN 5 MG TABLET PO (20:13)
[2020-03-05] MEDS: INSULIN GLARGINE (*BKC) 100 UNITS/ML 25 UNITS SUB-Q (21:43)
[2020-03-05] MEDS: ONDANSETRON INJ 4 MG/2 ML VIAL IV PUSH (23:16)
[2020-03-06] VITALS (12 sets, daily range): BP systolic 105–139; BP diastolic 58–76; PULSE 82–90; RESP 14–20; TEMP 35.8–36.7; O2SAT 83–95
[2020-03-06] MEDS: IPRATROPIUM BR 0.02% INH SOLN 0.5 MG/2.5 ML VIAL INHALATION ×3 (05:03→14:18)
[2020-03-06 05:14] LABS: Glucose Point of Care 245 (65-105)
[2020-03-06 06:35] LABS: Hematocrit 31.2 % (42.0-52.0); Hemoglobin 9.9 g/dL (14.0-18.0); Mean Corpuscular HGB Conc 31.7 g/dl (32-36); Mean Corpuscular Volume 91.5 fl (80-100); Mean Platelet Volume 11.6 fl (7.4-10.4); Platelet Count Result 223 k/mm3 (150-375); Red Blood Count 3.41 M/mm3 (4.6-6.20); Red Cell Distribution Width 14.7 % (11.5-14.5); White Blood Count 11.9 K/mm3 (4.5-10.0)
[2020-03-06 06:42] LABS: Blood Urea Nitrogen 38 mg/dL (9-20); Calcium 8.2 mg/dL (8.4-10.2); Carbon Dioxide > 40 mmol/L (22-30); Chloride 89 mmol/L (98-107); Estimated CRCL calculation 73 ml/min; Estimated Glomerular Filt Rate 43; Glucose 223 mg/dL (75-110); Potassium 3.8 mmol/L (3.4-5.0); Sodium 137 mmol/L (137-145)
--- NOTE | 2020-03-06 08:05 | PC.NURSE ---
Came in to assess patient. Patient asleep and O2 on his forehead. Checked O2 sats, in the 60s. Quickly came up to 95% on 3L after inserting NC.
[2020-03-06] MEDS: MAGNESIUM OXIDE 400 MG TABLET PO (08:14)
[2020-03-06] MEDS: predniSONE 10 MG TABLET 30 MG PO (08:14)
[2020-03-06] MEDS: carvediloL 3.125 MG TABLET PO (08:14)
[2020-03-06] MEDS: GABAPENTIN 300 MG CAPSULE PO ×2 (08:14→13:32)
[2020-03-06] MEDS: POLYSACCHARIDE IRON COMPLEX 150 MG CAPSULE PO (08:14)
[2020-03-06] MEDS: RIVAROXABAN 2.5 MG TABLET PO (08:14)
[2020-03-06] MEDS: amLODIPine BESYLATE 5 MG TABLET 10 MG PO (08:15)
[2020-03-06] MEDS: LORATADINE 10 MG TABLET PO (08:15)
[2020-03-06] MEDS: INSULIN GLARGINE (*BKC) 100 UNITS/ML 25 UNITS SUB-Q (08:23)
[2020-03-06] MEDS: INSULIN ASPART (*BKC) 100 UNITS/ML 12 UNITS SUB-Q ×2 (08:26→12:03)
[2020-03-06] MEDS: ALBUTEROL SULFATE NEB 2.5 MG/0.5 ML INH INHALATION (08:55)
--- NOTE | 2020-03-06 09:07 | PCRCNOTE ---
PT RESIDES IN A [facility]/ASSISTED FACILITY AND ALREADY HAS OXYGEN. NO HOME O2 EVAL NEEDS TO BE COMPLETED BECAUSE PT WILL BE FOLLOWED BY [facility] FOR ALL O2 NEEDS AT FACILITY, AND NO HOME O2 SET UP IS REQUIRED.
--- NOTE | 2020-03-06 11:01 | PM.DS ---
DS: Admitting Diagnosis Admitting Diagnosis Admitting Diagnosis: Acute on chronic hypoxic respiratory failure, CHF exacerbation DS: Discharge Diagnosis Discharge Diagnosis (1) Acute and chronic respiratory failure with hypoxia: Code(s): J96.21 - Acute and chronic respiratory failure with hypoxia Status: Acute Assessment and Plan: Patient has baseline requirement of 1-2 L O2. He was sent in due to hypoxia and increased oxygen requirements at the senior care. He was initially requiring 3 liters and he was weaned to 1 liter today. Likely multifactorial to include CHF, COPD, and LEONIDAS which is currently untreated. CXR demonstrated cardiomegaly with pulmonary vascular congestion. Echocardiogram demonstrates HFpEF with grade II diastolic dysfunction. He will benefit from follow-up with pulmonology outpatient and I will refer him to see them. He needs outpatient formal sleep study and PFTs. He was given orders for both. (2) Congestive heart failure: Code(s): I50.9 - Heart failure, unspecified Status: Acute Assessment and Plan: Findings as above. BNP slightly elevated for his age at 89. He appears euvolemic and rales have resolved. Echocardiogram demonstrated showed normal LV systolic function with EF 65-70%, moderately increased LV wall thickness, grade II diastolic dysfunction, mild to moderate tricuspid valve regurgitation, and severe pulmonary hypertension. He was treated with IV lasix which was transitioned to PO lasix at discharge. (3) Chronic obstructive pulmonary disease: Code(s): J44.9 - Chronic obstructive pulmonary disease, unspecified Status: Acute Assessment and Plan: He was noted to have wheezing with concern for mild COPD exacerbation which is likely contributing to hypoxia. PO prednisone was initiated 03/03 given mild nature and concomitant hyperglycemia and tapered. Symbicort was added. Recommend outpatient PFTs. (4) Chronic kidney disease, stage 3: Code(s): N18.30 - Chronic kidney disease, stage 3 unspecified Status: Acute Assessment and Plan: Renal function appears consistent with review of prior labs. Slight increase in Cr likely secondary to overdiuresis. Plan for repeat BMP outaptient. (5) Chronic anemia: Code(s): D64.9 - Anemia, unspecified Status: Acute Assessment and Plan: Chronic and normocytic. H&H remain stable. Vital signs are stable and there are no signs of active bleeding. PO iron was continued and repeat CBC ordered for outpatient follow-up. (6) Insulin dependent diabetes mellitus: Status: Acute Assessment and Plan: A1c is 9.0. Blood sugars were elevated above target, likely due to steroid therapy and increasing insulin resistance. Lantus was increased and aspart was added with meals as well. He will need close follow-up at the senior care with continued ACHS glucose monitoring. (7) Obstructive sleep apnea: Code(s): G47.33 - Obstructive sleep apnea (adult) (pediatric) Status: Acute Assessment and Plan: Likely contributing to chronic respiratory failure. He relates that he does not currently have a CPAP so this is untreated at present. Echo shows pulmonary hypertension with known LEONIDAS, untreated, and apnea link showing high probability for LEONIDAS. We were able to get him set up with a CPAP for the [facility]. He will need formal outpatient sleep study as well. (8) Essential hypertension: Code(s): I10 - Essential (primary) hypertension Status: Acute Assessment and Plan: Blood pressures were reviewed and are reasonably controlled. Amlodipine, carvedilol, and furosemide were continued. 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 Xarelto wa
[2020-03-06 11:46] LABS: Glucose Point of Care 181 (65-105)
[2020-03-06 11:46] LABS: Glucose Point of Care 256 (65-105)
[2020-03-06] MEDS: INSULIN ASPART (*BKC) 100 UNITS/ML SUB-Q (12:04)
--- NOTE | 2020-03-06 13:33 | PC.NURSE ---
Pt on 1L O2 at time of vitals. Pt sleeping/drowsy. O2 sats would not get above 85%. Even after sitting patient up and asking him to deep breath in through the nose and out the mouth O2 sats would not get above 85%. Turned up to 2L NC and O2 sats increased to 91%.
== END 2020-03-06 16:33 | DRG 133 ==
LOC: ANHED 10:41 → ANH3MEDSUR 12:34 → ANHTRC 03-05 00:17 → ANH3MEDSUR 03-10 14:11 → ANHTRC 03-10 14:11
PROVIDERS: Physician Assistant; Admitting Provider Internal Medicine; Emergency Provider Emergency Medicine; PCP Family Medicine; Visit Provider Internal Medicine
DX: J96.21 Acute and chronic respiratory failure with hypoxia (principal); Z20.828 Contact with and (suspected) exposure to other viral communicable diseases; I13.0 Hypertensive heart and chronic kidney disease with heart failure and stage 1 through stage 4 chronic kidney disease, or unspecified chronic kidney disease; I50.9 Heart failure, unspecified; D64.9 Anemia, unspecified; J44.9 Chronic obstructive pulmonary disease, unspecified; N18.30 Chronic kidney disease, stage 3 unspecified; G47.33 Obstructive sleep apnea (adult) (pediatric); E66.01 Morbid (severe) obesity due to excess calories; E11.22 Type 2 diabetes mellitus with diabetic chronic kidney disease; E11.42 Type 2 diabetes mellitus with diabetic polyneuropathy; K21.9 Gastro-esophageal reflux disease without esophagitis; I82.5Y3 Chronic embolism and thrombosis of unspecified deep veins of proximal lower extremity, bilateral; Z99.81 Dependence on supplemental oxygen; Z79.01 Long term (current) use of anticoagulants; Z79.4 Long term (current) use of insulin; Z79.899 Other long term (current) drug therapy; Z87.891 Personal history of nicotine dependence
CPT/HCPCS: 36415; 36600; 71045; 80048; 80076; 82805; 83036; 83735; 83880; 84443; 84484; 85025; 85027; 87635; 93005; 93970; 94640; 94660; 94762; 96365; 96374; 96375; 96376; 99285; A9270; C8929; C9803; G0378; G0379; J1815; J1940; J2405; J3475; J7512; Q9957; U0003

== ENCOUNTER → 2020-05-23 01:51 | Outpatient (CLI) | payer OTHER, SELFPAY ==
[2020-05-24 08:28] LABS: SARS-CoV-2 RNA PCR Negative
== END ==
PROVIDERS: Visit Provider Internal Medicine Critical Care Medicine
DX: R68.89 Other general symptoms and signs (principal); Z20.822 Contact with and (suspected) exposure to COVID-19
CPT/HCPCS: C9803; U0003; U0005

== ENCOUNTER 2020-05-26 09:10 | Outpatient (CLI) | payer OTHER, SELFPAY ==
--- NOTE | 2020-06-16 10:51 | WPDSLEEPSTUD ---
Sleep Study Ordering Provider: Norman Lyons MD Interpreting Physician: Judith Lopes MD Sleep Study Type: Split Polysomnogram Height: 1.85 m Weight: 174.179 kg Body Mass Index: 50.6 Neck Circumference (inches): 23 [place]: 11 Reason for Sleep Study Chronic respiratory failure on oxygen 2 L a minute, congestive heart failure, lives at [facility] and was empirically started on BiPAP in early April as an inpatient, now presents for sleep testing and treatment of suspected sleep apnea Sleep History Ulices Canas is a 49 year old man who is a resident at [facility]. He is morbidly obese, uses oxygen 2 L a minute, has congestive heart failure, and bilateral lower extremity DVTs. He was started on BiPAP in early April when he was admitted to [place] for acute on chronic respiratory failure with hypoxemia due to fluid overload. He had an echocardiogram on 03/04/2020 with LV systolic function 65-70% with increased LV wall thickness, grade 2 diastolic dysfunction and moderate tricuspid regurgitation with severe pulmonary hypertension, estimated pulmonary arterial systolic pressure 65 mmHg. Oxygen was added to his BiPAP. He has never had a formal sleep study prior to this study. The patient occasionally snores, rarely loudly enough that others complain about it. He rarely awakens at night with heartburn, belching or coughing. He rarely awakens from sleep feeling short of breath. He occasionally has trouble sleep with a cold. He rarely wakes up breathing problems closed on waking or falling asleep. He does not have vivid dreamlike scenes upon awakening or falling asleep. He does not feel afraid to go to sleep. He rarely has nightmares. He rarely remembers his dreams. He rarely feels sad or depressed. He constantly has anxiety. He does not have muscular tension, does not notice parts of his body jerking, and he does not kick at night. He rarely has crawling or aching feelings in his legs. He does not have any kind of leg pain at night and does not wake up with morning jaw pain. He is not bothered by pain during the day, is not awakened by pain at night and does not wake up feeling stiff in the morning. He rarely wakes up with sore or achy muscles. He does not wake up with pain in the spine. Normal bedtime is between 9:00 p.m. and 10:00 p.m. falling asleep quickly, waking twice at night to urinate. He is able to return to sleep within 5 minutes. He wakes the morning at 6:00 a.m.. On weekends he stays awake until 11:00 p.m. and wakes at 6:30 a.m.. He takes naps in the afternoon or evening. A short nap may be refreshing. He is usually drowsy in the morning for 1 hour or longer. He feels better in the evening compared other times of day. 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 Chronic kidney disease, stage 3 Congestive heart failure Current use of filler leaf cutter long anticoagulation Diabetic peripheral neuropathy Diastolic dysfunction Essential hypertension Gastroesophageal reflux disease History of cellulitis Right lower extremity Insulin dependent diabetes mellitus Morbid obesity Obstructive sleep apnea Osteoarthritis Family History Family History (Updated 06/16/20 @ 15:37 by Judith Lopes MD) Father Diabetes mellitus Mother DVT (deep venous thrombosis) Social History Social History (Updated 06/16/20 @ 15:38 by Judith Lopes MD) Smoking status: Former smoker Smoking end date: 04/04/90 Alcohol intake: never Substance use: never Medications Medications: medication list from office visit 05/14/2020 amlodipine 10 mg a day carvedilol 3.125 mg b.i.d. gabapentin 300 mg p.o. t.i.d. sliding scale insulin per protocol Xarelto 2.5 mg p.o. b.i.d. acetaminophen 325 mg p.r
[2020-06-16 15:30] VITALS: BMI 50.6
== END 2020-05-26 09:11 | disposition home or self-care (01) ==
LOC: ANHCSM 09:11
PROVIDERS: Visit Provider Internal Medicine Pulmonary Disease
DX: E66.01 Morbid (severe) obesity due to excess calories (principal); G47.30 Sleep apnea, unspecified; J96.21 Acute and chronic respiratory failure with hypoxia; G47.33 Obstructive sleep apnea (adult) (pediatric)
CPT/HCPCS: 95811

== ENCOUNTER 2020-06-12 10:28 | Outpatient (CLI) | payer OTHER, SELFPAY ==
[2020-06-12 10:30] VITALS: PULSE 95; O2SAT 96
[2020-06-12 10:35] VITALS: PULSE 108; O2SAT 85
[2020-06-12 10:40] VITALS: PULSE 111; O2SAT 86
[2020-06-12 10:45] VITALS: PULSE 114; O2SAT 87
[2020-06-12 10:50] VITALS: PULSE 113; O2SAT 90
[2020-06-12 11:05] VITALS: PULSE 108; O2SAT 95
--- NOTE | 2020-06-12 11:38 | HOMEO2EVAL ---
Home Oxygen Evaluation RC: Home Oxygen (O2) Evaluation Start: 06/12/20 11:32 Freq: Status: Active Protocol: RPE Activity Type Activity Date Activity User E-Sign Co-Sign Detail Recorded Client Recorded Date Recorded By Document 06/12/20 10:30 [email or web address] [email or web address] 06/12/20 11:37 DJO Document 06/12/20 10:35 [email or web address] [email or web address] 06/12/20 11:37 DJO Document 06/12/20 10:40 [email or web address] [email or web address] 06/12/20 11:37 DJO Document 06/12/20 10:45 [email or web address] [email or web address] 06/12/20 11:37 DJO Document 06/12/20 10:50 [email or web address] [email or web address] 06/12/20 11:37 DJO Document 06/12/20 11:05 [email or web address] [email or web address] 06/12/20 11:37 DJO 06/12/20 06/12/20 06/12/20 10:30 10:35 10:40 Home O2 Evaluation Test Phase Resting Exercise Exercise Oxygen Delivery Room Air Room Air Nasal Cannula Oxygen Flow Rate (L/min) 1 Pulse Oximetry (90-100 %) 96 85 L 86 L Pulse Rate (60-100 beats/min) 95 108 H 111 H Activity Tolerance Fair Treatment Charges O2 Evaluation - Outpatient 06/12/20 06/12/20 06/12/20 10:45 10:50 11:05 Home O2 Evaluation Test Phase Exercise Exercise Resting Oxygen Delivery Nasal Cannula Nasal Cannula Room Air Oxygen Flow Rate (L/min) 2 3 Pulse Oximetry (90-100 %) 87 L 90 95 Pulse Rate (60-100 beats/min) 114 H 113 H 108 H Activity Tolerance Treatment Charges
--- NOTE | 2020-06-15 10:08 | WPDPFTINT ---
PFT Interpretation This PFT met all criteria for ATS standards and reproducibility FEV/FVC post bronchodilator 80% FEV1 52% FVC 51% TLC 66% RV 97% RV/TLC 42% DLCO 67% when adjusted for alveolar volume but not adjusted for hemoglobin Flow volume loops showed some end expiratory coving Impression: a restrictive ventilatory defect is present. This may be seen in obese patients but intrinsic lung disease such as ILD and others cannot be ruled out Clinical correlation is advised.
== END 2020-06-12 10:29 | disposition home or self-care (01) ==
PROVIDERS: PCP Internal Medicine; Visit Provider Internal Medicine Pulmonary Disease
DX: E66.01 Morbid (severe) obesity due to excess calories (principal); R06.00 Dyspnea, unspecified
CPT/HCPCS: 94060; 94618; 94726; 94729

== ENCOUNTER 2020-09-09 13:31 | Inpatient (IN) | payer OTHER, SELFPAY ==
[2020-09-09] VITALS (10 sets, daily range): BP systolic 106–168; BP diastolic 59–102; PULSE 92–116; RESP 12–32; TEMP 37–37.2; O2SAT 77–93; BMI 50.1
--- NOTE | ~2020-09-09 | XR_ITS ---
XR chest 1V portable 09/10/2020 12:52 Indication: Pneumonia. Shortness of breath. Procedure: AP portable chest Comparison: Comparison to multiple prior studies sequentially, with oldest reviewed study dated 05/15. Findings: Developing bibasilar airspace consolidation, consistent with pneumonia. Cardiomegaly with m ild interstitial edema. No pleural effusion. Impression: 1: Developing bibasilar airspace consolidation, right greater than left, compatible with pneumonia. 2: Cardiomegaly with mild interstitial edema. Reviewed, dictated and finalized at location B. Impression: 1: Developing bibasilar airspace consolidation, right greater than left, compat ible with pneumonia. 2: Cardiomegaly with mild interstitial edema.
--- NOTE | ~2020-09-09 | XR_ITS ---
XR chest 1V portable 09/09/2020 14:13 Indication: Shortness of breath Procedure: AP portable chest Comparison: 03/02/2020 Findings: Shallow inspiration. Cardiomegaly. Mild pulmonary vascular congestion. No focal pneumonia, edema, pleural effusion or pneumothorax. Impression: 1: Cardiomegaly with pulmonary vascular congestion. Reviewed, dictated and finalized at location B. Impression: 1: Cardiomegaly with pulmonary vascular congestion.
--- NOTE | ~2020-09-09 | US_ITS ---
EXAMINATION:US venous doppler LE BI INDICATION:Leg edema. TECHNIQUE: Multiple grayscale, color flow and Doppler images of the right and left lower extremity de ep venous systems were obtained and reviewed. COMPARISON:No prior studies for comparison. FINDINGS: The common femoral, superficial femoral and popliteal veins demonstrate normal respiratory variation, augmentation and compressibility. Color flow is also seen within the posterior tibial, pe roneal, greater saphenous and profunda veins. There is left inguinal lymphadenopathy, likely reactive . IMPRESSION: 1: No lower extremity deep venous thrombosis. 2: Left inguinal lymphadenopathy, likely reactive. Reviewed, dictated and finalized at location B.
--- NOTE | ~2020-09-09 | CT_ITS ---
EXAMINATION: CT abdomen pelvis wo con DATE: 09/10/2020 13:28 INDICATION: Abdominal distention and nausea TECHNIQUE: Computed tomography (CT) of the abdomen and pelvis was performed without intravenous contr ast. The dose-length product (DLP) was 1526.06 mGy-cm. Automated exposure control and iterative recon struction technique were employed. COMPARISON: None FINDINGS: There is atelectasis and airspace opacity of the visualized lung bases. The heart size is n ormal. Stones are present in the nondistended gallbladder. Punctate calcifications in an otherwise no rmal spleen likely represent healed granulomatous disease. The liver, pancreas, and adrenal glands ar e normal. The right kidney is unremarkable. There is a 3 mm nonobstructing stone of the left kidney. The bladder is decompressed by Stephens catheter. There are mildly enlarged left inguinal lymph nodes. A moderate volume of colonic stool is present. There is an umbilical hernia containing fat. There is n o free intraperitoneal gas or evidence of bowel obstruction. There is moderate lumbar spondylosis. IMPRESSION: 1. No CT correlate for the patient's symptoms. 2. Atelectasis and pneumonia in the lung bases. 3. Cholelithiasis without evidence of cholecystitis. 4. Mild left inguinal lymphadenopathy, likely reactive. Reviewed, dictated and finalized at location A.
--- NOTE | ~2020-09-09 | XR_ITS ---
EXAMINATION: XR chest PICC line INDICATION: PICC insertion TECHNIQUE: Portable AP chest at 1023 hours COMPARISON: 09/10/2020 FINDINGS: A right upper extremity PICC has been inserted which ends with its tip at the superior cavo atrial junction. Bibasilar airspace opacities persist but have improved. There is no pleural effusion or pneumothorax. Cardiomegaly is noted. IMPRESSION: 1. Right upper extremity PICC ending at the superior cavoatrial junction. 2. Persistent but improved bibasilar airspace opacities, consistent with atelectasis versus pneumonia . 3. Cardiomegaly. Reviewed, dictated and finalized at location B. IMPRESSION: 1. Right upper extremity PICC ending at the superior cavoatrial junction. 2. Persistent but improved bibasilar airspace opacities, consistent with atelec tasis versus pneumonia. 3. Cardiomegaly.
--- NOTE | ~2020-09-09 | XR_ITS ---
EXAMINATION: XR hip LT 2V w AP pelvis INDICATION: Left hip pain TECHNIQUE: AP view of the pelvis and two views of the left hip are obtained. COMPARISON: None available FINDINGS: Bone alignment is normal. There is no fracture. Calcified atherosclerosis is noted. Phlebol iths are noted in the pelvis. IMPRESSION: 1. No acute osseous abnormality. Reviewed, dictated and finalized at location A.
--- NOTE | ~2020-09-09 | CT_ITS ---
EXAMINATION: CT LE LT wo con DATE: 09/12/2020 11:30 INDICATION: Left lower limb cellulitis with swelling, erythema and warmth TECHNIQUE: High resolution computed tomography (CT) of the left lower limb from the hip through the f oot was performed without intravenous contrast. Additional sagittal and coronal reconstructions were performed. Automated exposure control and iterative reconstruction technique were employed. The dose- length product was 2325.32 mGy-cm. COMPARISON: None FINDINGS: Motion artifact at the level of the distal metadiaphyseal region of the femur. Prominent skin thicken ing and subcutaneous edema throughout the left calf relatively sparing the posterolateral aspect of t he calf and extending proximally to the mid thigh. There is no significant edema in the fat within th e muscular compartments of the thigh or lower leg. No discrete loculated fluid collections to suggest abscess. No soft tissue gas to suggest necrotizing fasciitis although this is a clinical diagnosis. Chronic amputation of the left second toe at the level of the head of the second metatarsal and of th e third toe across the diaphysis of the proximal phalanx. There also appears to be an old healed frac ture or osteotomy at the neck of the third metatarsal. There is bridging heterotopic ossification bet ween the heads of the second and third metatarsals. Finally there is a nondisplaced likely chronic no nunited fracture at the plantar base of the fourth metatarsal with thin corticated margins. No acute fracture. Small indolent appearing sclerotic lesion at the posterior medial supracondylar region with location and appearance most consistent with residual scarring from a benign cortical desmoid. Bone island at the lateral cuneiform. No periosteal reaction, cortical erosion or other osteolysis to sugg est osteomyelitis. Mild osteoarthritis at the left hip, in the patellofemoral compartment of the left knee and at multiple joints in the left foot. No joint effusions at the left hip, knee or ankle. Scattered vascular calcifications throughout the l eft lower limb. Likely reactive left inguinal lymphadenopathy with largest lymph nodes measuring 1.5 cm maximal short axis diameter. Stephens catheter within the decompressed bladder. Small fat-containing left inguinal hernia. IMPRESSION: 1. Skin thickening and diffuse edema which appears limited to the subcutaneous fat throughout the lef t calf and distal half of the left thigh consistent with cellulitis. No significant edema in the deep er muscular compartments or evident soft tissue gas to suggest necrotizing fasciitis. 2. Chronic postoperative and posttraumatic changes in the left foot as detailed above. Reviewed, dictated and finalized at location A. IMPRESSION: 1. Skin thickening and diffuse edema which appears limited to the subcutaneous fat throughout the left calf and distal half of the left thigh consistent with cellulitis. No significant edema in the deeper muscular compartments or evident soft tissue gas to suggest necrotizing fasciitis. 2. Chronic postoperative and posttraumatic changes in the left foot as detailed above.
--- NOTE | ~2020-09-09 | US_ITS ---
EXAMINATION: US renal BI DATE: 09/11/2020 15:44 INDICATION: Acute kidney injury TECHNIQUE: Multiple grayscale and Doppler ultrasound images of the kidneys were obtained. COMPARISON: None. FINDINGS: The right kidney measures 12.1 x 7.2 x 8.0 cm. The left kidney measures measures 14.0 x 7.2 x 7.3 cm. The kidneys demonstrate normal parenchymal echogenicity. There is no hydronephrosis. The b ladder is decompressed by Stephens catheter. IMPRESSION: 1. Normal kidneys without hydronephrosis. Reviewed, dictated and finalized at location A.
--- NOTE | ~2020-09-09 | XR_ITS ---
EXAMINATION: XR chest 1V portable DATE: 09/09/2020 20:42 INDICATION: Unresponsive. TECHNIQUE: A single frontal view of the chest was obtained. COMPARISON: Chest single view 09/09/2020 at 2:12 PM, chest CT 05/15/2019 FINDINGS: Sensitivity is decreased by obesity. There is mild atelectasis at right lung base. There is no pleural effusion or pneumothorax. Cardiomegaly is noted. IMPRESSION: 1. Mild atelectasis at right lung base. 2. Cardiomegaly. Reviewed, dictated and finalized at location A.
--- NOTE | 2020-09-09 13:57 | ECG_ITS ---
Measurements Intervals [place] Rate: 115 P: 67 GA: 151 QRS: 102 QRSD: 98 T: 38 QT: 302 QTc: 419 Interpretive Statements SINUS TACHYCARDIA RIGHT AXIS DEVIATION BORDERLINE ST-T WAVE ABNORMALITY- INFERIOR LEADS BASELINE ARTIFACT- I, II, III, AVR, AVL, AVF, V1-V6 ABNORMAL ECG Electronically Signed On 09-09-2020 14:23:12 CDT by Abel Ortiz D.O.
[2020-09-09 14:23] LABS: Basophils Percent Auto 0.3 % (0.2-1.2); Eosinophils Absolute Auto 0.4 K/mm3 (0-0.3); Eosinophils Percent Auto 2.6 % (0-4.4); Hematocrit 41.6 % (42.0-52.0); Hemoglobin 12.5 g/dL (14.0-18.0); Immature Granulocyte Percent A 0.7 % (0-0.5); Lymphocytes Absolute Auto 1.22 K/mm3 (0.9-3.2); Lymphocytes Percent Auto 8.4 % (18.3-44.2); Mean Corpuscular Hemoglobin 28.4 pg (26-34); Mean Corpuscular Volume 94.5 fl (80-100); Mean Platelet Volume 11.1 fl (7.4-10.4); Monocytes Absolute Auto 0.3 K/mm3 (0.1-0.6); Monocytes Percent Auto 1.7 % (2.6-8.5); Neutrophils Absolute Auto 12.5 K/mm3 (1.3-6.7); Neutrophils Percent Auto 86.3 % (45.5-73.1); Platelet Count Result 223 k/mm3 (150-375); Red Cell Distribution Width 15.1 % (11.5-14.5); White Blood Count 14.5 K/mm3 (4.5-10.0)
[2020-09-09 14:35] LABS: Alanine Aminotransferase 19 U/L (4-50); Albumin Level 4.5 g/dL (3.5-5.1); Alkaline Phosphatase 118 U/L (38-126); Anion Gap 11 mmol/L (8-16); Aspartate Amino Transferase 28 U/L (17-59); Bilirubin,Total 0.6 mg/dL (0.2-1.3); Blood Urea Nitrogen 41 mg/dL (9-20); Calcium 9.2 mg/dL (8.4-10.2); Carbon Dioxide 29 mmol/L (22-30); Chloride 103 mmol/L (98-107); Estimated CRCL calculation 67 ml/min; Estimated Glomerular Filt Rate 36; Glucose 125 mg/dL (75-110); Lactic Acid Reflex 2.9 mmol/L (0.7-2.1); Lipase 91 U/L (23-300); Potassium 5.2 mmol/L (3.4-5.0); Sodium 143 mmol/L (137-145)
[2020-09-09 14:39] LABS: Alveolar/Arterial O2 Gradient 179.6 mmHg; Base Excess ABG 2.5 mEq/l (+/-2.0); Fractional Inspired Oxygen 44 %; HCO3 ABG 30.2 mEq/l (22.0-26.0); Oxygen Content ABG 16.4 %vol (16.0-22.0); Oxygen Saturation ABG 89.9 % (95.0-100.0); Oxyhemoglobin 90.4 % THb (90.0-100.0); PO2 FiO2 Ratio Arterial Blood 1.45 %; Total Hemoglobin 12.9 g/dL (12.0-18.0); pH ABG 7.309 (7.350-7.450)
--- NOTE | 2020-09-09 14:42 | ED.GENADULT ---
HPI - General Adult General Chief complaint: Nausea/Vomiting/Diarrhea Stated complaint: fever, chills, vomiting Time Seen by Provider: 09/09/20 13:45 Source: patient History of Present Illness HPI narrative: Patient is 49 y/o male complaining of fever, chills and vomiting starting earlier today when he was at [facility]. There is no known alleviating or exacerbating factor. He has no abdominal pain or diarrhea. He has some left lateral hip pain and left lower leg pain. Related Data Home Medications Medication Instructions Recorded Confirmed amlodipine 10 mg PO DAILY 05/15/19 09/09/20 carvedilol 3.125 mg PO BID 05/15/19 09/09/20 gabapentin 300 mg PO TID 05/15/19 09/09/20 insulin regular human 1 sliding scale dose SUBCUT 05/15/19 09/09/20 USEASDIRECTD Xarelto 2.5 mg PO BID 03/02/20 09/09/20 acetaminophen 325 mg PO ONCE PRN 03/02/20 09/09/20 albuterol sulfate 90 mcg INHALATION TID 03/02/20 09/09/20 cetirizine 10 mg PO DAILY 03/02/20 09/09/20 melatonin 5 mg PO HS 03/02/20 09/09/20 polysaccharide iron complex 150 mg PO DAILY 03/02/20 09/09/20 [Poly-Iron] furosemide 40 mg tablet 60 mg PO DAILY tablet 09/08/20 09/09/20 Allergies Allergy/AdvReac Type Severity Reaction Status Date / Time No Known Allergies Allergy Verified 09/09/20 18:25 Review of Systems Constitutional: Constitutional: Reports chills, Reports fever(s), Denies headache(s) and Denies weakness Eyes: Eyes: Denies blurry vision ENT: Denies headache(s) and Denies neck pain Cardiovascular: Cardiovascular: Denies chest pain and Reports dyspnea Respiratory: Respiratory: Denies cough and Reports dyspnea Gastrointestinal: Gastrointestinal: Denies abdominal pain, Denies diarrhea, Reports nausea and Reports vomiting Genitourinary: Genitourinary: Denies hematuria and Denies dysuria Musculoskeletal: Musculoskeletal: Denies back pain and Denies neck pain Neurologic: Denies headache(s) and Denies weakness [facility] Past Medical History Medical History (Updated 09/09/20 @ 23:05 by Paulette Bonilla MD) Amputation of one or more toes amputation of several toes on both feet Amputation of one or more toes amputation of several toes on both feet Asthma Chronic anemia 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 Chronic obstructive pulmonary disease Congestive heart failure Current use of long goods drier anticoagulation Diabetic peripheral neuropathy Diastolic dysfunction Essential hypertension Gastroesophageal reflux disease History of cellulitis Right lower extremity Insulin dependent diabetes mellitus Morbid obesity Obstructive sleep apnea Osteoarthritis Surgical History Surgical History (Updated 09/09/20 @ 21:44 by Irma Tejeda NP) Amputation of one or more toes Amputation of several toes on both feet. Second toe on the right and 2nd 3rd on the left Family History Family History Father Diabetes mellitus Cerebrovascular accident Mother DVT (deep venous thrombosis) Cerebrovascular accident Sibling Diabetes mellitus Cerebrovascular accident Social History Social History Social History: The patient has been a resident at [facility] for about a year. He smoked remotely as a young man and quit in 1990. No alcohol or illicit substance use. He is not and has no children. All of his immediate family members are . He is not certain who he would want to name as his surrogate decision maker. At this time he is considered to be a full code. Smoking status: Never smoker Tobacco type: cigarettes Smoking end date: 04/04/90 Alcohol intake: never Substance use: never Gender identity (if verbalized by the patient): Male Sexual Orientation (if Verbalized by the Patient): Straight or Heterose
[2020-09-09 14:44] LABS: PCO2 ABG 61.5 mmHg (35.0-45.0)
[2020-09-09 14:45] LABS: Device NASAL CANNULA; Modified Allen's Test Pass; Site Drawn LEFT RADIAL
[2020-09-09 15:51] LABS: Add Urine Microscopic? YES; Appearance Urine Clear (Clear); Bacteria Urine Trace /hpf; Bilirubin Urine Negative (Negative); Blood Urine 1+ (Negative); Color Urine Yellow (Yellow); Glucose Urine UA Negative (Negative); Ketones Urine Negative (Negative); Leukocyte Esterase Ur Trace LEU/UL (Negative); Mucus Urine Rare /lpf; Nitrate Urine Negative (Negative); Protein Urine 3+ mg/dL (Negative); Specific Grav Ur 1.013 (1.001-1.035); Squamous Epithelial Cell Urine Rare /hpf (Few); Urobilinogen Urine Negative mg/dL (<2.0)
[2020-09-09] MEDS: LACTATED RINGERS 2,000 ML 999 ML (17:07)
[2020-09-09 17:21] LABS: Reflex Lactic Acid Yes or No Add Lactic
--- NOTE | 2020-09-09 18:17 | ADMGEN ---
This patient, Ulices Canas, was admitted to [facility] Room 326-01. Patient/family oriented to hospital policies and general routines including ID bracelet, bed and alarms, visiting hours, pain management, procedures, bathroom and other care routines, personal items, smoking policy, room service/diet, and visiting hours. Information on how to activate the Rapid Response Team has been discussed. Patient/Family are encouraged to report perceived risks to care and to ask questions if they do not understand what they are told or what they should do.
[2020-09-09 19:06] LABS: Lactic Acid 3.6 mmol/L (0.7-2.1)
[2020-09-09 20:31] LABS: Glucose Point of Care 151 mg/dl (65-105)
[2020-09-09 20:37] LABS: Alveolar/Arterial O2 Gradient 527.6 mmHg; Carboxyhemoglobin 0.4 % THb (0-2.0); Fractional Inspired Oxygen 90 %; HCO3 ABG 29.3 mEq/l (22.0-26.0); Methemoglobin ABG 0.5 %THb (0-1.5); Oxygen Content ABG 14.6 %vol (16.0-22.0); Oxyhemoglobin 79.9 % THb (90.0-100.0); PO2 FiO2 Ratio Arterial Blood 0.53 %; Reduced Hemoglobin 19.2 %THb (0-5.0)
[2020-09-09 20:38] LABS: Device NON-REBREATHER MASK; Modified Allen's Test Unable to perform; Oxygen Saturation ABG 77.3 % (95.0-100.0); PCO2 ABG 64.5 mmHg (35.0-45.0); Site Drawn LEFT RADIAL; pH ABG 7.275 (7.350-7.450)
--- NOTE | 2020-09-09 20:41 | ECG_ITS ---
Measurements Intervals [place] Rate: 98 P: 3 LA: 146 QRS: 92 QRSD: 94 T: 24 QT: 328 QTc: 419 Interpretive Statements SINUS RHYTHM RIGHT AXIS DEVIATION BORDERLINE ECG Electronically Signed On 09-10-2020 5:40:37 CDT by Abel Ortiz D.O.
[2020-09-09] MEDS: FUROSEMIDE INJ 40 MG/4 ML VIAL 20 MG IV PUSH (20:43)
[2020-09-09] MEDS: ONDANSETRON INJ 4 MG/2 ML VIAL IV PUSH (21:21)
--- NOTE | 2020-09-09 21:28 | PM.IMHP ---
H&P: HPI History of Present Illness Date/Time: 09/09/20 21:28 this is a 49-year-old male patient who resides at [facility]. The patient has a history of COPD as well as congestive heart failure. The patient has a history of diabetes and has multiple toes amputated. And vomiting that started earlier today. Patient had no alleviating factors or exacerbating factors. Patient has some left lateral hip pain and left lower leg pain. Patient has redness to bilateral legs. It appears that the patient had 7 L of oxygen on when he came into the emergency room. The patient stated that he does turn his oxygen up to 5 L per nasal cannula. The patient has a mallet and die cutter that he just saw yesterday. Was noted to be 90% on 3 L in the office yesterday. PFTs demonstrated severe restrictive abnormality with no bronchodilator response and normal DLCO corrected for alveolar volume. Patient the patient was started on the BiPAP at the long-term. He also has a history of DVTs and is on Xarelto. Sleep study was performed on 06/16/2020 which shows severe hypoxemia which required supplemental oxygen even during the baseline portion. The apnea hypopnea index was 61.1 with severe obstructive sleep apnea. Optimal bilevel pressure is 20/16 with 4 L a minute oxygen. The patient's creatinine is 2.0 today which is baseline is anywhere from 1.3-1.9.Pulmonary vascular congestion. His white count is noted to be 14.5 today. ABGs in the emergency room pH 7.309. CO2 61.5. PO2 64.0. At that time the patient was placed on 6 L per nasal cannula. His potassium was found to be 5.2. Lactic was 2.9 and then the 2nd repeat lactic was 3.6. I question how much fluid the patient received and it looks like a total of 6 L was ordered. Patient was started on Zosyn and vancomycin for diabetic foot cellulitis. However prior to this admission the patient had been on 3rd floor and a rapid response was called because the patient was unresponsive and his oxygen level went down in the 40s. Blood sugar was 151. The patient had just vomited prior to the rapid response. Patient started to cough frequently. The patient was placed on a non-rebreather. I did give him some IV Lasix. I called the seconds grader to review the case with the seconds grader repeat ABGs were reported to the seconds grader pH was 7.275 CO2 was 64.5 O2 was 48. It was advised to give the patient Zofran and repeat ABGs in 1 hour. If the patient continues to remain hypoxic then we can do the BiPAP. The patient does have severe sleep apnea and it sounds like he wears his CPAP quite frequently at the long-term. The patient had a repeat chest x-ray after the rapid base. Cardiomegaly. The patient is admitted to observation status on the date of service of 09/09/2020. 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 Chronic obstructive pulmonary disease Congestive heart failure Current use of intermodal dispatcher anticoagulation Diabetic peripheral neuropathy Diastolic dysfunction Essential hypertension Gastroesophageal reflux disease History of cellulitis Right lower extremity Insulin dependent diabetes mellitus Morbid obesity Obstructive sleep apnea Osteoarthritis Surgical History Surgical History (Updated 09/09/20 @ 21:44 by Irma Tejeda NP) Amputation of one or more toes Amputation of several toes on both feet. Second toe on the right and 2nd 3rd on the left Family History Family History (Reviewed 09/09/20 @ 21:44 by Samantha
[2020-09-09 21:34] LABS: Glucose Point of Care 126 mg/dl (65-105)
[2020-09-09] MEDS: GABAPENTIN 300 MG CAPSULE PO (21:40)
[2020-09-09] MEDS: RIVAROXABAN 2.5 MG TABLET PO (21:40)
[2020-09-09] MEDS: carvediloL 3.125 MG TABLET PO (21:40)
[2020-09-09] MEDS: methylPREDNISolone SOD SUCC 125 MG VIAL 80 MG IV PUSH (23:21)
[2020-09-09 23:22] LABS: Alveolar/Arterial O2 Gradient 510.2 mmHg; Base Excess ABG 3.1 mEq/l (+/-2.0); Fractional Inspired Oxygen 89 %; HCO3 ABG 30.8 mEq/l (22.0-26.0); Oxygen Content ABG 16.4 %vol (16.0-22.0); Oxygen Saturation ABG 88.6 % (95.0-100.0); Oxyhemoglobin 89.7 % THb (90.0-100.0); PO2 ABG 60.8 mmHg (80.0-100.0); PO2 FiO2 Ratio Arterial Blood 0.68 %; pH ABG 7.315 (7.350-7.450)
[2020-09-09 23:23] LABS: Device HIGH FLOW THERAPY; Modified Allen's Test Pass; PCO2 ABG 61.9 mmHg (35.0-45.0); Site Drawn LEFT RADIAL
[2020-09-10] VITALS (25 sets, daily range): BP systolic 134–185; BP diastolic 65–79; PULSE 91–111; RESP 20–34; TEMP 36.4–38.1; O2SAT 88–98
[2020-09-10] MEDS: ALBUTEROL SULFATE NEB 2.5 MG/0.5 ML INH INHALATION ×4 (02:41→21:17)
[2020-09-10] MEDS: IPRATROPIUM BR 0.02% INH SOLN 0.5 MG/2.5 ML VIAL INHALATION ×4 (02:41→21:17)
[2020-09-10 05:01] LABS: Hematocrit 39.6 % (42.0-52.0); Hemoglobin 11.8 g/dL (14.0-18.0); Mean Corpuscular HGB Conc 29.8 g/dl (32-36); Mean Corpuscular Hemoglobin 28.9 pg (26-34); Mean Corpuscular Volume 96.8 fl (80-100); Mean Platelet Volume 11.9 fl (7.4-10.4); Platelet Count Result 188 k/mm3 (150-375); Red Blood Count 4.09 M/mm3 (4.6-6.20); Red Cell Distribution Width 15.6 % (11.5-14.5); White Blood Count 17.5 K/mm3 (4.5-10.0)
[2020-09-10 05:16] LABS: Lactic Acid Reflex 2.3 mmol/L (0.7-2.1)
[2020-09-10 05:24] LABS: Alanine Aminotransferase 21 U/L (4-50); Albumin Level 3.4 g/dL (3.5-5.1); Alkaline Phosphatase 64 U/L (38-126); Anion Gap 9 mmol/L (8-16); Aspartate Amino Transferase 59 U/L (17-59); Bilirubin,Total 0.9 mg/dL (0.2-1.3); Blood Urea Nitrogen 55 mg/dL (9-20); Calcium 8.1 mg/dL (8.4-10.2); Carbon Dioxide 29 mmol/L (22-30); Chloride 103 mmol/L (98-107); Estimated CRCL calculation 44 ml/min; Estimated Glomerular Filt Rate 22; Glucose 153 mg/dL (75-110); Lactate Dehydrogenase 495 U/L (313-618); Magnesium 1.2 mg/dL (1.6-2.3); Potassium 5.8 mmol/L (3.4-5.0); Sodium 141 mmol/L (137-145)
[2020-09-10 05:34] LABS: Band Neutrophils Percent 20 % (0-6); Lymphocytes Absolute Manual 0.52 K/mm3 (1.1-4.5); Monocytes Absolute Manual 1.22 K/mm3 (0.1-0.90); Monocytes Percent Manual 7 % (3-9); Neutrophils Absolute Manual 15.75 K/mm3 (1.3-6.7); Neutrophils Percent Manual 70 % (46-73); Platelet Estimate Adequate (Adequate); Total Cells Counted 100
[2020-09-10 05:50] LABS: Hemoglobin A1C 7.5 % (<5.7)
[2020-09-10] MEDS: methylPREDNISolone SOD SUCC 125 MG VIAL 80 MG IV PUSH (05:54)
--- NOTE | 2020-09-10 05:54 | PC.NURSE ---
When in with pt this morning he complained of increasing discomfort in his left leg. When I looked I saw the red has spread from his calf up his thigh. I outlined it with marker so we can see if it worsens.
[2020-09-10 07:32] LABS: Glucose Point of Care 176 mg/dl (65-105)
[2020-09-10 07:58] LABS: Reflex Lactic Acid Yes or No Add Lactic
[2020-09-10 08:34] LABS: Lactic Acid 1.9 mmol/L (0.7-2.1)
[2020-09-10] MEDS: carvediloL 3.125 MG TABLET PO (08:50)
[2020-09-10] MEDS: amLODIPine BESYLATE 5 MG TABLET 10 MG PO (08:50)
[2020-09-10] MEDS: POLYSACCHARIDE IRON COMPLEX 150 MG CAPSULE PO (08:50)
[2020-09-10] MEDS: RIVAROXABAN 2.5 MG TABLET PO ×2 (08:51→17:34)
[2020-09-10] MEDS: GABAPENTIN 300 MG CAPSULE PO ×3 (08:51→17:34)
[2020-09-10] MEDS: LORATADINE 10 MG TABLET PO (08:51)
[2020-09-10] MEDS: FUROSEMIDE INJ 40 MG/4 ML VIAL IV PUSH (08:51)
[2020-09-10 08:53] LABS: Alveolar/Arterial O2 Gradient 457.9 mmHg; Base Excess ABG 1.4 mEq/l (+/-2.0); Fractional Inspired Oxygen 82 %; HCO3 ABG 29.1 mEq/l (22.0-26.0); Oxygen Content ABG 18.1 %vol (16.0-22.0); Oxygen Saturation ABG 90.5 % (95.0-100.0); Oxyhemoglobin 91.1 % THb (90.0-100.0); PCO2 ABG 59.1 mmHg (35.0-45.0); PO2 FiO2 Ratio Arterial Blood 0.79 %; Total Hemoglobin 14.1 g/dL (12.0-18.0)
[2020-09-10 08:55] LABS: Modified Allen's Test Pass; Site Drawn LEFT RADIAL
[2020-09-10 08:56] LABS: Device HIGH FLOW THERAPY
--- NOTE | 2020-09-10 10:00 | PM.CNCAR ---
Assessment and Plan Additional Plan 49-year-old man with: Significant diastolic noncompliance by echo that was done here over the course of last winter during a previous hospitalization. IMS to see him today apparently because of the diagnosis of congestive heart failure which I would do not see much evidence of a physical exam. His chief complaint was that of fever chills not symptoms compatible with decompensated heart failure. He obviously has significant volume overload related to his obesity hypoventilation. His medical regimen should be adjusted for more optimum treatment of diastolic noncompliance. I am going to suggest shifting him from carvedilol/amlodipine to a modest dose of metoprolol with diltiazem. This would represent a better negative inotrope regimen. Thank you for asking me to see this very unfortunate gentleman. Norman Nunez MD [facility] History of Present Illness History of Present Illness Consult date/time: 09/10/20 10:00 Consult reason: congestive heart failure Reason For Visit: cellulitis/sepsis Narrative: This is a 49-year-old man who I have not seen previous to this consultation. I am seeing him at the request of the hospitalist this morning because of congestive heart failure/pulmonary edema. The patient is in room 201 in the IMU supine in bed with a BiPAP device in place. He is alert and responsive and answers questions appropriately. Despite his young age he is a intermediate resident who states he was sent here yesterday because of fever and chills that were noticed at the intermediate. He says his temperature was measured at 101? any felt chills and was sent to the emergency room for those complaints. His chief complaint does not seem to be consistent with decompensated heart failure. He is not known to have any significant cardiac pathology in the past. The patient is massively obese with a BMI of 50 he has the need for continuous BiPAP so that his CO2 levels can be controlled. He is followed by a chemical process project engineer who did in fact just saw him about 48 hours ago in the office. They are very detailed and excellent note is in the chart and has been reviewed. They indicate really no structural lung disease he simply has severe restrictive felt ventilatory deficit because of massive obesity. The patient did have an echocardiogram done here several months ago a in the winter when he was hospitalized the study was interpreted by Dr. Ortiz . The findings indicated evidence of some left ventricular hypertrophy with normal size excellent, hyperdynamic looking systolic function but with grade 2 diastolic noncompliance. There was no significant valvular disease. Chest x-ray on admission shows a somewhat enlarged cardiac silhouette although the patient is massively obese and they quality of the film is rather poor inspiration. His medical regimen consists of a very low dose of carvedilol and amlodipine at 10 mg per day. In addition to this he is anticoagulated with start low-dose Xarelto because of a history of chronic lower extremity DVTs he also takes insulin. He has had evidence of diabetic vascular disease with amputation of multiple of his toes on both feet. In this setting he is being seen in consultation. With BiPAP in place he seems to be comfortable alert and response to questions appropriately. Review of Systems Constitutional: Constitutional: Reports no additional constitutional complaints Eyes: Eyes: Reports no additional eye complaints ENT: Reports system reviewed and no additional complaints, except as documented Cardiovascular: Cardiovascular: Reports no additional cardiovascular complaints Respiratory: Respiratory: Reports dyspnea Gastrointestinal: Gastrointestinal: Reports no additional gastrointestinal complaints Musculoskeletal: Musculoskeletal: Reports myalgias Integumentary/Breasts: Skin/Breast: Reports system reviewed and no additional complaints, except as docu Neurologic: Reports system
[2020-09-10 11:06] LABS: Glucose Point of Care 217 mg/dl (65-105)
--- NOTE | 2020-09-10 11:43 | PM.CNPUL ---
Assessment and Plan Assessment and plan (1) Obesity hypoventilation syndrome: Code(s): E66.2 - Morbid (severe) obesity with alveolar hypoventilation Status: Acute Assessment and Plan: Patient with obesity hypoventilation and a history of restrictive ventilatory abnormality with a total lung capacity of 66% and no evidence of obstruction. I do not believe the patient has COPD or any reactive airways disease. his most recent blood gas on high-flow nasal cannula oxygen is 7.31/59/65. I have ordered the patient to be placed on his BiPAP 20/16 with 80% FiO2 which were the optimal pressures on his most recent sleep study of 05/26/2020. (2) Chronic respiratory failure with hypoxia and hypercapnia: Code(s): J96.11 - Chronic respiratory failure with hypoxia; J96.12 - Chronic respiratory failure with hypercapnia Status: Acute Assessment and Plan: patient had a home O2 assessment 06/12 with resting room air oxygen saturation 96%. Exercise on room air saturations were 85%, exercise on 1 L saturations 86%, exercise on 2 L saturations 87%, exercise on 3 L nasal cannula saturations 90%. Currently the patient is requiring much more oxygen in the etiology of this includes sepsis from his cellulitis, aspiration and or fluid overload. he had no pneumonia complaints prior to this presentation. Currently he is on Zosyn and vancomycin which should be adequate coverage for cellulitis and or aspiration pneumonia -pneumonitis. Patient was given IV Lasix this morning. Patient is currently on Xarelto for prior DVTs. I will obtain lower extremity Dopplers to exclude DVT at this time. 09/10 On high flow 60L and 70% with sats 92%. Will follow with you. 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 patient was seen in the Pulmonary Clinic on 09/08/2020 and stated he had a good clinical response to the BiPAP 20/16 with 4 L bleed in. Until recently when he feel the machine was clean by the nursing staff at the skilled nursing and he said it was not working since then. Patient had no evidence of COPD on his CT scan of the chest 05/15/2019 and his Symbicort was discontinued in the clinic. Patient also had increased edema of the lower extremities and his Lasix was increased from 20 mg for 40 mg a day to 60 mg a day. On 09/09 patient states that he had developed fever, chills without any shortness of breath, phlegm production, hemoptysis or chest pain. Patient did notice Left leg and left hip pain. on 09/09 he also had vomiting episodes. Patient presented to the emergency room with a white blood cell count of 14.5, ABG of 7.31/62/64 and he was placed on supplemental oxygen. Patient had a lactic acidosis and received fluid resuscitation. patient was treated with Zosyn and vancomycin for possible cellulitis. Patient developed hypoxemia And was given IV Lasix for concern of fluid overload and required high-flow nasal cannula oxygen. 09/10 When I talked to the patient today he said he had not had no respiratory complaints and states that he is breathing quite comfortably. He denied sputum production, hemoptysis or chest pain. Currently he is on high-flow nasal cannula oxygen at 60 L and 70% with saturations 92%. DATA: 05/26/2020 patient had a split night sleep study. During the baseline portion was the apnea-hypopnea index was 61.1. The optimal bilevel pressure of 20/16 with 4 L bleed in was obtained. PFTs 06/12/2020: The pre bron
--- NOTE | 2020-09-10 12:43 | PM.IMPN ---
Progress Note: A&P Assessment and Plan (1) Bilateral cellulitis of lower leg: Code(s): L03.116 - Cellulitis of left lower limb; L03.115 - Cellulitis of right lower limb Status: Acute Assessment and Plan: IV antibiotics, monitor vital signs, white blood cells, and clinical improvement (2) SHAKIRA (acute kidney injury): Code(s): N17.9 - Acute kidney failure, unspecified Status: Acute Assessment and Plan: Monitor renal function and electrolytes (3) Pulmonary hypertension: Code(s): I27.20 - Pulmonary hypertension, unspecified Status: Acute Assessment and Plan: IV Lasix (4) Congestive heart failure: Code(s): I50.9 - Heart failure, unspecified Status: Acute Assessment and Plan: IV Lasix, beta-emerson, discussed cardiology about the need for MARKO-inhibitor and a light of his renal dysfunction (5) Acute and chronic respiratory failure with hypoxia: Code(s): J96.21 - Acute and chronic respiratory failure with hypoxia Status: Acute Assessment and Plan: Wean patient off oxygen as tolerated Treat CHF and COPD (6) COPD (chronic obstructive pulmonary disease): Code(s): J44.9 - Chronic obstructive pulmonary disease, unspecified Status: Acute Assessment and Plan: Bronchodilators Steroids Pulmonary consult (7) 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 Exam Const: General: cooperative and no acute distress HENMT: Head: normal to inspection Eyes: General: appearance normal, both eyes and all related structures Neck: Neck: normal visual inspection Chest: Chest palpation & inspection: normal inspection of the chest Resp: Effort & Inspection: normal respiratory effort Cardio: Jugular venous distension: no JVD Rate: regular rate GI: Inspection: normal to inspection and non-distended Extrem: Other: Bilateral lower extremity swelling and redness Objective Data Vital Signs Vital Signs: Vital Signs - 24 hr 09/09/20 13:39 09/09/20 14:49 09/09/20 18:37 Temperature 98.6 F Pulse Rate 116 H 107 H 103 H Respiratory Rate 16 19 12 Blood Pressure 148/102 H 168/85 H Pulse Oximetry 91 90 90 09/09/20 18:50 09/09/20 20:30 09/09/20 20:35 Temperature 99 F 99 F Pulse Rate 103 H 92 Respiratory Rate 12 32 H Blood Pressure 131/62 138/83 Pulse Oximetry 89 L 77 L 78 L 09/09/20 21:00 09/09/20 21:19 09/09/20 22:00 Temperature 99 F Pulse Rate 93 94 Respiratory Rate 24 H Blood Pressure 106/59 L Pulse Oximetry 90 90 09/09/20 23:24 09/10/20 00:00 09/10/20 02:00 Temperature 98.9 F Pulse Rate 97 93 93 Respiratory Rate 22 H Blood Pressure 120/67 Pulse Oximetry 92 91 09/10/20 02:40 09/10/20 03:22 09/10/20 04:00 Temperature 97.6 F Pulse Rate 92 92 Respiratory Rate 22 H Blood Pressure 134/66 Pulse Oximetry 88 L 91 93 09/10/20 06:00 09/10/20 07:56 09/10/20 08:00 Temperature 98.2 F Pulse Rate 91 100 99 Respiratory Rate 24 H 32 H Blood Pressure 155/76 H Pulse Oximetry 93 93 09/10/20 08:07 09/10/20 08:50 09/10/20 10:00 Temperature Pulse Rate 99 99 100 Respiratory Rate 20 Blood Pressure Pulse Oximetry 09/10/20 11:43 09/10/20 12:00 Temperature 100.3 F H Pulse Rate 98 Respiratory Rate 34 H Blood Pressure 155/65 H Pulse Oximetry 93 94 Intake/Output Intake/Output: Intake & Output 09/07/20 09/08/20 09/09/20 09/10/20 23:59 23:59 23:59 23:59 Intake Total 50 Yohan
[2020-09-10] MEDS: ACETAMINOPHEN 325 MG TABLET 650 MG PO (17:35)
[2020-09-10 17:43] LABS: Glucose Point of Care 253 mg/dl (65-105)
[2020-09-10] MEDS: INSULIN ASPART (*BKC) 100 UNITS/ML SUB-Q (17:45)
[2020-09-10] MEDS: INSULIN GLARGINE (*BKC) 100 UNITS/ML 20 UNITS SUB-Q (17:46)
[2020-09-10 20:26] LABS: Glucose Point of Care 248 mg/dl (65-105)
[2020-09-10] MEDS: HYDROcodone/acetaminophen (*CRX) 10-325 MG TABLET 1 TAB PO (21:58)
[2020-09-11] VITALS (28 sets, daily range): BP systolic 115–139; BP diastolic 66–75; PULSE 89–105; RESP 18–24; TEMP 36.6–37.1; O2SAT 90–99
[2020-09-11] MEDS: ALBUTEROL SULFATE NEB 2.5 MG/0.5 ML INH INHALATION ×4 (03:06→22:44)
[2020-09-11] MEDS: IPRATROPIUM BR 0.02% INH SOLN 0.5 MG/2.5 ML VIAL INHALATION ×4 (03:06→22:44)
[2020-09-11 04:33] LABS: Hematocrit 34.9 % (42.0-52.0); Hemoglobin 10.7 g/dL (14.0-18.0); Immature Platelet Fraction Pct 9.1 % (0.9-11.2); Mean Corpuscular HGB Conc 30.7 g/dl (32-36); Mean Corpuscular Hemoglobin 28.8 pg (26-34); Mean Corpuscular Volume 93.8 fl (80-100); Platelet Count Result 157 k/mm3 (150-375); Red Blood Count 3.72 M/mm3 (4.6-6.20); Red Cell Distribution Width 15.4 % (11.5-14.5); White Blood Count 17.9 K/mm3 (4.5-10.0)
[2020-09-11 04:45] LABS: Lactic Acid Reflex 1.6 mmol/L (0.7-2.1)
[2020-09-11 04:52] LABS: Anion Gap 8 mmol/L (8-16); Blood Urea Nitrogen 84 mg/dL (9-20); Calcium 7.6 mg/dL (8.4-10.2); Carbon Dioxide 29 mmol/L (22-30); Chloride 102 mmol/L (98-107); Creatine Kinase 1017 U/L (55-170); Estimated CRCL calculation 29 ml/min; Estimated Glomerular Filt Rate 13; Glucose 210 mg/dL (75-110); Magnesium 1.5 mg/dL (1.6-2.3); Phosphorus 4.8 mg/dL (2.5-4.5); Potassium 5.7 mmol/L (3.4-5.0); Sodium 139 mmol/L (137-145)
[2020-09-11 07:23] LABS: Glucose Point of Care 223 mg/dl (65-105)
[2020-09-11 07:34] LABS: Glucose Point of Care 188 mg/dl (65-105)
[2020-09-11] MEDS: METOPROLOL SUCCINATE EXT REL 25 MG TABCR PO (09:45)
[2020-09-11] MEDS: LORATADINE 10 MG TABLET PO (09:45)
[2020-09-11] MEDS: POLYSACCHARIDE IRON COMPLEX 150 MG CAPSULE PO (09:45)
[2020-09-11] MEDS: RIVAROXABAN 2.5 MG TABLET PO ×2 (09:46→17:41)
[2020-09-11] MEDS: FUROSEMIDE INJ 40 MG/4 ML VIAL IV PUSH (09:46)
[2020-09-11] MEDS: GABAPENTIN 300 MG CAPSULE PO (09:46)
--- NOTE | 2020-09-11 10:09 | PM.PNCARD ---
Progress Note: A&P Assessment and Plan (1) Congestive heart failure: Code(s): I50.9 - Heart failure, unspecified Status: Acute Assessment and Plan: He has grade II diastolic dysfunction demonstrated by echocardiogram in February 2020. EF 65-70%. He currently is not demonstrating any symptoms of decompensated heart failure. His medical regimen was adjusted to support his diastolic noncompliace - on diltiazem and metoprolol. (2) Essential hypertension: Code(s): I10 - Essential (primary) hypertension Status: Acute Assessment and Plan: He had some elevated measurements earier in his admission. He is at goal now. Continue to monitor. (3) Obesity hypoventilation syndrome: Code(s): E66.2 - Morbid (severe) obesity with alveolar hypoventilation Status: Acute Assessment and Plan: On BiPAP at [facility] and currently on hig flow O2. Pulm following. Subjective Date/time seen: 09/11/20 10:09 Cardiology follow up for heart failure Date of service 09/11/2020: Patient resting comfortably in bed on high flow O2. He says his breathing is fine. He does not appear to be in any distress. No chest pain. Review of Systems Constitutional: Constitutional: Reports no additional constitutional complaints Eyes: Eyes: Reports no additional eye complaints ENT: Reports system reviewed and no additional complaints, except as documented Cardiovascular: Cardiovascular: Reports no additional cardiovascular complaints and Reports dyspnea Respiratory: Respiratory: Reports dyspnea Gastrointestinal: Gastrointestinal: Reports no additional gastrointestinal complaints Musculoskeletal: Musculoskeletal: Reports myalgias Integumentary/Breasts: Skin/Breast: Reports system reviewed and no additional complaints, except as docu Neurologic: Reports system reviewed and no additional complaints, except as documented Endocrine: Endocrine: Reports no additional endocrine complaints Hematologic/Lymphatic: Hematologic/Lymphatic: Reports no additional hematologic/lymphatic complaints Allergic/Immunologic: Allergic/Immunologic: Reports no additional allergic/immunologic complaints Exam Const: General: comfortable and no acute distress HENMT: Mouth: Yes moist mucous membranes Eyes: General: appearance normal, both eyes and all related structures Sclera: sclerae normal Pupils: Equal, round and reactive pupils present Neck: Neck: supple Other: Unable to assess JVD due to body habitus Resp: Effort & Inspection: normal respiratory effort Auscultation: clear to auscultation bilaterally and diminished lung sounds (distant lung sounds due to body habitus) Cardio: Rate: regular rate Rhythm: regular rhythm Heart sounds: no murmurs GI: GI Palp: Yes Soft to palpation Auscultation: normal bowel sounds Urinary Catheter: Urinary Catheter: patent and draining and urine clear Skin: General skin exam: normal color Neuro: Cranial nerves: Yes Equal, round and reactive pupils present Cognition (Neuro): normal cognition Speech: normal speech Extrem: Other: Patient has significant chronic appearing lower extremity edema with obvious changes of chronic venous stasis and absent toes from both feet. Psych: Affect: normal affect Objective Data Vital Signs Vital Signs: Vital Signs - 24 hr 09/10/20 11:43 09/10/20 12:00 09/10/20 13:49 Temperature 37.9 C H Pulse Rate 100 107 H Respiratory Rate 34 H 24 H Blood Pressure 155/65 H Pulse Oximetry 93 93 09/10/20 14:00 09/10/20 14:05 09/10/20 16:00 Temperature 38.1 C H Pulse Rate 105 H 105 H 110 H Respiratory Rate 20 22 H Blood Pressure 185/73 H Pulse Oximetry 94 09/10/20 18:00 09/10/20 20:00 09/10/20 21:18 Temperature 37.1 C Pulse Rate 107 H 107 H 107 H Respiratory Rate 22 H 20 Blood Pressure 167/73 H Pulse Oximetry 94 09/10/20 21:20 09/10/20 21:28 09/10/20 22:00 Temperature Pulse Rate 111 H 108 H Respirat
[2020-09-11 11:54] LABS: Glucose Point of Care 256 mg/dl (65-105)
[2020-09-11] MEDS: INSULIN GLARGINE (*BKC) 100 UNITS/ML 20 UNITS SUB-Q (12:24)
[2020-09-11] MEDS: INSULIN ASPART (*BKC) 100 UNITS/ML SUB-Q (12:24)
--- NOTE | 2020-09-11 12:33 | PM.IMPN ---
Progress Note: A&P Assessment and Plan (1) Bilateral cellulitis of lower leg: Code(s): L03.116 - Cellulitis of left lower limb; L03.115 - Cellulitis of right lower limb Status: Acute Assessment and Plan: IV antibiotics, monitor vital signs, white blood cells, and clinical improvement Patient had fever last night Lactic acid within normal limit this morning (2) SHAKIRA (acute kidney injury): Code(s): N17.9 - Acute kidney failure, unspecified Status: Acute Assessment and Plan: Monitor renal function and electrolytes Consult nephrology (3) Pulmonary hypertension: Code(s): I27.20 - Pulmonary hypertension, unspecified Status: Acute Assessment and Plan: IV Lasix (4) Congestive heart failure: Code(s): I50.9 - Heart failure, unspecified Status: Acute Assessment and Plan: IV Lasix, beta-emerson, discussed cardiology about the need for MARKO-inhibitor and a light of his renal dysfunction (5) Acute and chronic respiratory failure with hypoxia: Code(s): J96.21 - Acute and chronic respiratory failure with hypoxia Status: Acute Assessment and Plan: Wean patient off oxygen as tolerated Treat CHF and COPD (6) COPD (chronic obstructive pulmonary disease): Code(s): J44.9 - Chronic obstructive pulmonary disease, unspecified Status: Acute Assessment and Plan: Bronchodilators Steroids Pulmonary consult (7) 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 last evening Patient is resting comfortably in bed, denies any active complaints at this time, nurse reported weakness, that seemed to be generalized on exam. Exam Const: General: cooperative and no acute distress HENMT: Head: normal to inspection Eyes: General: appearance normal, both eyes and all related structures Neck: Neck: normal visual inspection Chest: Chest palpation & inspection: normal inspection of the chest Resp: Effort & Inspection: normal respiratory effort Cardio: Jugular venous distension: no JVD Rate: regular rate GI: Inspection: normal to inspection and non-distended Extrem: Other: Bilateral lower extremity swelling and redness Objective Data Vital Signs Vital Signs: Vital Signs - 24 hr 09/10/20 13:49 09/10/20 14:00 09/10/20 14:05 Temperature Pulse Rate 107 H 105 H 105 H Respiratory Rate 24 H 20 Blood Pressure Pulse Oximetry 09/10/20 16:00 09/10/20 18:00 09/10/20 20:00 Temperature 100.6 F H 98.7 F Pulse Rate 110 H 107 H 107 H Respiratory Rate 22 H 22 H Blood Pressure 185/73 H 167/73 H Pulse Oximetry 94 94 09/10/20 21:18 09/10/20 21:20 09/10/20 21:28 Temperature Pulse Rate 107 H 111 H Respiratory Rate 20 20 Blood Pressure Pulse Oximetry 94 09/10/20 22:00 09/10/20 22:15 09/10/20 23:26 Temperature 98.1 F Pulse Rate 108 H 105 H 102 H Respiratory Rate 21 H 20 Blood Pressure 146/79 H Pulse Oximetry 98 96 09/11/20 00:00 09/11/20 02:00 09/11/20 03:10 Temperature Pulse Rate 102 H 98 102 H Respiratory Rate 20 Blood Pressure Pulse Oximetry 96 98 09/11/20 03:20 09/11/20 04:00 09/11/20 06:00 Temperature 98.0 F Pulse Rate 105 H 100 103 H Respiratory Rate 20 20 Blood Pressure 129/71 Pulse Oximetry 99 09/11/20 07:00 09/11/20 08:00 09/11/20 08:32 Temperature 98.2 F Pulse Rate 100 97 96 Respiratory Rate 18 19 Blood Pressure 118/71 Pulse Oximetry 99 91 99 09/11/20 08:40 09/11/20 08:43 09/11/20 09:35 Temperature Pulse
--- NOTE | 2020-09-11 13:13 | PM.PNPUL ---
Progress Note: A&P Assessment and Plan (1) Obesity hypoventilation syndrome: Code(s): E66.2 - Morbid (severe) obesity with alveolar hypoventilation Status: Acute Assessment and Plan: Patient with obesity hypoventilation and a history of restrictive ventilatory abnormality with a total lung capacity of 66% and no evidence of obstruction. I do not believe the patient has COPD or any reactive airways disease. his most recent blood gas on high-flow nasal cannula oxygen is 7.31/59/65. 09/10 I have ordered the patient to be placed on his BiPAP 20/16 with 80% FiO2 which were the optimal pressures on his most recent sleep study of 05/26/2020. 09/11 patient tolerated BiPAP 20/16 is down to 60% FiO2 and he said that he slept well with this setting. Will continue nocturnal BiPAP (2) Chronic respiratory failure with hypoxia and hypercapnia: Code(s): J96.11 - Chronic respiratory failure with hypoxia; J96.12 - Chronic respiratory failure with hypercapnia Status: Acute Assessment and Plan: patient had a home O2 assessment 06/12 with resting room air oxygen saturation 96%. Exercise on room air saturations were 85%, exercise on 1 L saturations 86%, exercise on 2 L saturations 87%, exercise on 3 L nasal cannula saturations 90%. Currently the patient is requiring much more oxygen in the etiology of this includes sepsis from his cellulitis, aspiration and or fluid overload. he had no pneumonia complaints prior to this presentation. Currently he is on Zosyn and vancomycin which should be adequate coverage for cellulitis and or aspiration pneumonia -pneumonitis. Patient was given IV Lasix this morning. Patient is currently on Xarelto for prior DVTs. I will obtain lower extremity Dopplers to exclude DVT at this time which were negative. 09/10 On high flow 60L and 70% with sats 92%. 09/11 on high flow 50 L and 55% with sats 96% Will follow with you. Subjective Date/time seen: 09/11/20 13:13 Interval history: Patient is a 49-year-old male with morbid obesity, hypoxemia on 2 L nasal cannula oxygen at the longterm, Congestive heart failure, DM s/p toe amputations, lower extremity DVTs on Xarelto, and obstructive sleep apnea who was started on BiPAP 20/16 with 4 L bleed in per sleep study on 05/26/20. patient was seen in the Pulmonary Clinic on 09/08/2020 and stated he had a good clinical response to the BiPAP 20/16 with 4 L bleed in. Until recently when he feel the machine was clean by the nursing staff at the longterm and he said it was not working since then. Patient had no evidence of COPD on his CT scan of the chest 05/15/2019 and his Symbicort was discontinued in the clinic. Patient also had increased edema of the lower extremities and his Lasix was increased from 20 mg for 40 mg a day to 60 mg a day. On 09/09 patient states that he had developed fever, chills without any shortness of breath, phlegm production, hemoptysis or chest pain. Patient did notice Left leg and left hip pain. on 09/09 he also had vomiting episodes. Patient presented to the emergency room with a white blood cell count of 14.5, ABG of 7.31/62/64 and he was placed on supplemental oxygen. Patient had a lactic acidosis and received fluid resuscitation. patient was treated with Zosyn and vancomycin for possible cellulitis. Patient developed hypoxemia And was given IV Lasix for concern of fluid overload and required high-flow nasal cannula oxygen. 09/10 When I talked to the patient today he said he had not had no respiratory complaints and states that he is breathing quite comfortably. He denied sputum production, hemoptysis or chest pain. Currently he is on high-flow nasal cannula oxygen at 60 L and 70% with saturations 92%. 09/11 Patient wore BiPAP 20/16 and was titrated down to 60% overnight. Patient remains hypoxic but states that he is breathing okay and denies shortness of breath at this time. Currently patient is on
--- NOTE | 2020-09-11 14:26 | PM.CNNEP ---
Assessment and Plan Assessment and plan (1) SHAKIRA (acute kidney injury): Code(s): N17.9 - Acute kidney failure, unspecified Status: Acute Assessment and Plan: multifactorial: - infection (cellulitis +/- aspiration pneumonia) - insensible losses (fevers) - fluctuating hemodynamics - hypoxia - necessity of diuretic therapy check renal ultrasound check urine electrolytes (but maybe difficult to interpret with diuresis) and urine eosinophils follow trend of repeat labs and urine output remains at high risk for requiring renal replacement therapy/dialysis (2) Stage 3a chronic kidney disease: Code(s): N18.31 - Chronic kidney disease, stage 3a Status: Chronic Assessment and Plan: baseline creatinine runs ~ 1.3 - 1.6mg/dl presumably due to HTN and diabetes along with LEONIDAS (3) Acute and chronic respiratory failure with hypoxia: Code(s): J96.21 - Acute and chronic respiratory failure with hypoxia Status: Acute Assessment and Plan: due to combination of LEONIDAS, OHS, CHF, and possibly aspiration pneumonia requiring high oxygen demands at this time Pulmonary following (4) Cellulitis of both lower extremities: Code(s): L03.115 - Cellulitis of right lower limb; L03.116 - Cellulitis of left lower limb Status: Acute Assessment and Plan: true cellulitis versus chronic venous stasis changes on antibiotics (5) CHF (congestive heart failure): Qualifiers: Heart failure chronicity: unspecified Heart failure type: unspecified Qualified Code(s): I50.9 - Heart failure, unspecified Code(s): I50.9 - Heart failure, unspecified Status: Acute Assessment and Plan: as noted by admission imaging on IV lasix Cardiology following (6) Diabetes: Code(s): E11.9 - Type 2 diabetes mellitus without complications Status: Acute Assessment and Plan: follow accuchecks glycemic control Will continue to follow History of Present Illness Reason for Consult Consult date: 09/11/20 Reason for consult: acute renal failure (on chronic kidney disease) Chief Complaint Chief complaint: cellulitis/sepsis History of Present Illness Narrative: The patient is a 49-year-old male with a past medical history as outlined below who presented to [facility] ER with bilateral lower extremity pain in association with worsening hypoxia and nausea/vomiting. The patient currently resides at [facility] and with these complaints and his complex medical history at baseline, he was sent to the ER for further evaluation. Workup and evaluation emergency room demonstrated routine blood test that showed his creatinine to be little bit higher than baseline, a chest x-ray with pulmonary vascular congestion, CBC with an elevated white blood cell count, and an elevated lactic acid in associated with a mildly elevated potassium level. He was requiring 6 L of oxygen when previously he was on 3 L to maintain his oxygen saturations 90%. It was felt that his symptoms related to congestive heart failure if not his underlying obstructive sleep apnea / obesity hypoventilation syndrome. He was subsequent admitted to the hospital for further evaluation and therapy. Next On the day of admission, he had a rapid response called due to worsening hypoxia and unresponsiveness. He apparently had an episode of vomiting prior to this rapid response. He was placed on a non-rebreather mask, given IV Lasix, and subsequent started on BiPAP therapy with improvement in his respiratory status. There was a concern that he may be recur acquired to be transferred to the ICU but his respiratory status stabilized with conservative therapy. Since his admission, it has been noted that his kidney function has been slowly deteriorating as well. Renal consultation was requested due to h
[2020-09-11] MEDS: MAGNESIUM SULF 2 GM/WATER 50ML 2 GM/50 ML BAG IVPB (15:24)
[2020-09-11 17:04] LABS: Glucose Point of Care 185 mg/dl (65-105)
[2020-09-11 18:49] LABS: Glucose Point of Care 192 mg/dl (65-105)
[2020-09-11 20:46] LABS: Glucose Point of Care 203 mg/dl (65-105)
[2020-09-12] VITALS (28 sets, daily range): BP systolic 119–154; BP diastolic 68–87; PULSE 79–90; RESP 16–23; TEMP 36.2–37; O2SAT 85–97
[2020-09-12 01:27] LABS: Creatinine Urine 189.6 mg/dL; Total Protein Urine Random 87 mg/dL; Ur Ttl Prot Creatinine Ratio 0.46 mg/mg (0-0.20)
[2020-09-12 01:59] LABS: Sodium Urine Random 28 meq/L
[2020-09-12] MEDS: ALBUTEROL SULFATE NEB 2.5 MG/0.5 ML INH INHALATION ×4 (03:30→20:45)
[2020-09-12] MEDS: IPRATROPIUM BR 0.02% INH SOLN 0.5 MG/2.5 ML VIAL INHALATION ×4 (03:30→20:45)
[2020-09-12 04:38] LABS: Eosinophil Urine None Seen % (None Seen)
[2020-09-12 05:31] LABS: Basophils Absolute Auto 0.1 K/mm3 (0.0-0.1); Basophils Percent Auto 0.4 % (0.2-1.2); Eosinophils Absolute Auto 0.1 K/mm3 (0-0.3); Eosinophils Percent Auto 0.5 % (0-4.4); Hematocrit 36.8 % (42.0-52.0); Hemoglobin 10.9 g/dL (14.0-18.0); Immature Granulocyte Absolute 0.23 K/mm3 (0.00-0.031); Immature Granulocyte Percent A 1.3 % (0-0.5); Lymphocytes Absolute Auto 0.92 K/mm3 (0.9-3.2); Lymphocytes Percent Auto 5.1 % (18.3-44.2); Mean Corpuscular HGB Conc 29.6 g/dl (32-36); Mean Corpuscular Hemoglobin 28.4 pg (26-34); Mean Corpuscular Volume 95.8 fl (80-100); Mean Platelet Volume 12.2 fl (7.4-10.4); Monocytes Absolute Auto 0.9 K/mm3 (0.1-0.6); Monocytes Percent Auto 4.9 % (2.6-8.5); Neutrophils Absolute Auto 15.7 K/mm3 (1.3-6.7); Neutrophils Percent Auto 87.8 % (45.5-73.1); Platelet Count Result 136 k/mm3 (150-375); Red Blood Count 3.84 M/mm3 (4.6-6.20); Red Cell Distribution Width 16.1 % (11.5-14.5); White Blood Count 17.9 K/mm3 (4.5-10.0)
[2020-09-12 05:48] LABS: Albumin Level 3.6 g/dL (3.5-5.1); Anion Gap 10 mmol/L (8-16); Blood Urea Nitrogen 105 mg/dL (9-20); Calcium 7.6 mg/dL (8.4-10.2); Carbon Dioxide 31 mmol/L (22-30); Chloride 99 mmol/L (98-107); Estimated CRCL calculation 21 ml/min; Estimated Glomerular Filt Rate 9; Glucose 182 mg/dL (75-110); Magnesium 2.2 mg/dL (1.6-2.3); Phosphorus 7.1 mg/dL (2.5-4.5); Sodium 140 mmol/L (137-145)
[2020-09-12 06:32] LABS: Hepatitis B Surface Antigen Negative (Negative)
[2020-09-12 06:38] LABS: HAV RESULT Negative (Negative); Hepatitis B Core IgM Result Negative (Negative)
[2020-09-12 06:50] LABS: Hepatitis B Surface Anti Res Negative; Hepatitis C Virus Antibody Negative (Negative)
[2020-09-12] MEDS: DEXTROSE 50% 25 GM/50 ML SYRINGE IV PUSH ×2 (08:21→17:11)
[2020-09-12] MEDS: INSULIN HUMAN REGULAR (*BKC) 100 UNITS/ML 10 UNITS IV PUSH ×2 (08:22→17:11)
[2020-09-12] MEDS: CALCIUM GLUC 1,000 MG/NS 50 ML 1,000 MG/50 ML BAG 100 MG IVPB ×2 (08:22→17:12)
[2020-09-12] MEDS: SODIUM POLYSTYRENE SULFONONATE 15 GM/60 ML BTL 30 GM PO ×2 (08:22→17:12)
[2020-09-12 08:45] LABS: Glucose Point of Care 176 mg/dl (65-105)
[2020-09-12] MEDS: RIVAROXABAN 2.5 MG TABLET PO (09:24)
[2020-09-12] MEDS: POLYSACCHARIDE IRON COMPLEX 150 MG CAPSULE PO (09:24)
[2020-09-12] MEDS: LORATADINE 10 MG TABLET PO (09:24)
[2020-09-12] MEDS: FUROSEMIDE INJ 40 MG/4 ML VIAL IV PUSH (09:24)
[2020-09-12] MEDS: GABAPENTIN 300 MG CAPSULE PO (09:25)
[2020-09-12] MEDS: METOPROLOL SUCCINATE EXT REL 25 MG TABCR PO (09:25)
[2020-09-12 09:44] LABS: Glucose Point of Care 241 mg/dl (65-105)
--- NOTE | 2020-09-12 10:27 | PM.IMPN ---
Progress Note: A&P Assessment and Plan (1) Bilateral cellulitis of lower leg: Code(s): L03.116 - Cellulitis of left lower limb; L03.115 - Cellulitis of right lower limb Status: Acute Assessment and Plan: Increase IV antibiotics coverage, adding cefepime clindamycin and vancomycin, discontinue Rocephin, patient received vancomycin and Zosyn initially that were discontinued Because of renal failure, monitor vital signs, case was discussed with general surgery, plan for stat CT noncontrast to the left lower extremity, suspicion for necrotizing fasciitis. (2) SHAKIRA (acute kidney injury): Code(s): N17.9 - Acute kidney failure, unspecified Status: Acute Assessment and Plan: Monitor renal function and electrolytes Consult nephrology (3) Pulmonary hypertension: Code(s): I27.20 - Pulmonary hypertension, unspecified Status: Acute Assessment and Plan: Lasix p.r.n. (4) Congestive heart failure: Code(s): I50.9 - Heart failure, unspecified Status: Acute Assessment and Plan: Lasix, beta-emerson, no MARKO-inhibitor in the light of his renal dysfunction (5) Acute and chronic respiratory failure with hypoxia: Code(s): J96.21 - Acute and chronic respiratory failure with hypoxia Status: Acute Assessment and Plan: Wean patient off oxygen as tolerated Treat CHF and COPD (6) COPD (chronic obstructive pulmonary disease): Code(s): J44.9 - Chronic obstructive pulmonary disease, unspecified Status: Acute Assessment and Plan: Bronchodilators Steroids Pulmonary consult (7) 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 Time with patient: Greater than 35 minutes Subjective Date/time seen: 09/12/20 10:27 Interval history: The nurse reported episodes of confusion, patient is alert, following simple commands, no focal weakness, left lower extremity redness is not improving, with signs of purulence secretion, and extension of the redness up to the left thigh, suspicion for necrotizing fasciitis, case was discussed with Dr. kirkland general surgery, antibiotics coverage increased to cefepime clindamycin and vanc, stat CT scan noncontrast to the left lower extremity. Exam Const: General: cooperative and no acute distress HENMT: Head: normal to inspection Eyes: General: appearance normal, both eyes and all related structures Neck: Neck: normal visual inspection Chest: Chest palpation & inspection: normal inspection of the chest Resp: Effort & Inspection: normal respiratory effort Cardio: Jugular venous distension: no JVD Rate: regular rate GI: Inspection: normal to inspection and non-distended Extrem: Other: Redness and swelling to the left lower extremity, worsening gradually comparing to yesterday, signs of purulent secretion at posterior and lateral aspect of the left leg, extension of redness up to the left thigh, significant tenderness. Objective Data Vital Signs Vital Signs: Vital Signs - 24 hr 09/11/20 12:00 09/11/20 13:23 09/11/20 13:29 Temperature 97.9 F Pulse Rate 97 98 Respiratory Rate 24 H 18 Blood Pressure 139/73 Pulse Oximetry 91 90 09/11/20 14:00 09/11/20 16:00 09/11/20 17:44 Temperature 98.7 F Pulse Rate 90 97 Respiratory Rate 20 Blood Pressure 125/66 Pulse Oximetry 92 09/11/20 18:00 09/11/20 19:46 09/11/20 20:00 Temperature 98.6 F Pulse Rate 91 95 96 Respiratory Rate 20 Bl
[2020-09-12 10:40] LABS: Glucose Point of Care 215 mg/dl (65-105)
[2020-09-12 11:12] LABS: Anion Gap 10 mmol/L (8-16); Blood Urea Nitrogen 115 mg/dL (9-20); Calcium 7.9 mg/dL (8.4-10.2); Carbon Dioxide 27 mmol/L (22-30); Chloride 99 mmol/L (98-107); Estimated CRCL calculation 23 ml/min; Estimated Glomerular Filt Rate 10; Glucose 237 mg/dL (75-110); Potassium 6.3 mmol/L (3.4-5.0); Sodium 136 mmol/L (137-145)
[2020-09-12] MEDS: INSULIN ASPART (*BKC) 100 UNITS/ML SUB-Q (12:33)
[2020-09-12 12:58] LABS: Glucose Point of Care 202 mg/dl (65-105)
[2020-09-12 12:59] LABS: Glucose Point of Care 182 mg/dl (65-105)
--- NOTE | 2020-09-12 13:11 | PM.PNCARD ---
Progress Note: A&P Additional Plan 49-year-old man with: Significant grade 2 diastolic noncompliance hemodynamically stable on metoprolol and diltiazem. Very ill gentleman with acute worsening renal insufficiency now significantly hyperkalemic. Nephrology consult being obtained today. I would imagine systemic anticoagulation should be held/discontinued for potential need for dialysis access. I will go ahead and put a hold on the Xarelto for that reason. Antibiotics for cellulitis being managed by the primary team. Norman Nunez MD [facility] Subjective Date/time seen: Date of service: 09/12/20 13:11 Interval history: Follow-up visit in this 49-year-old man with: Significant diastolic noncompliance having been switched to regimen of metoprolol and diltiazem. No other active cardiac problems. Unfortunate patient is also very ill with acute renal failure and appears to have concerning so being treated with aggressive antibiotics. Nephrology consult being placed today as the patient has worsening renal failure and is now significantly hyperkalemic. Exam Const: General: comfortable and no acute distress Other: Massively obese man appearing about his stated age response to questions appropriately supine in bed with high-flow oxygen in place HENMT: Mouth: Yes moist mucous membranes Eyes: General: appearance normal, both eyes and all related structures Sclera: sclerae normal Pupils: Equal, round and reactive pupils present Neck: Neck: supple Other: Unable to assess JVD due to body habitus Resp: Effort & Inspection: normal respiratory effort Auscultation: clear to auscultation bilaterally and diminished lung sounds (distant lung sounds due to body habitus) Other: Breath sounds are distant but basically clear in both lung russell Cardio: Rate: regular rate Rhythm: regular rhythm Heart sounds: no murmurs Other: PMI is not palpable, no murmur no gallop no rub GI: Auscultation: normal bowel sounds Urinary Catheter: Urinary Catheter: patent and draining and urine clear Skin: General skin exam: normal color Neuro: Cranial nerves: Yes Equal, round and reactive pupils present Cognition (Neuro): normal cognition Speech: normal speech Extrem: Other: Patient has significant chronic appearing lower extremity edema with obvious changes of chronic venous stasis and absent toes from both feet. Psych: Affect: normal affect Objective Data Vital Signs Vital Signs: Vital Signs - 24 hr 09/11/20 13:23 09/11/20 13:29 09/11/20 14:00 Temperature Pulse Rate 98 90 Respiratory Rate 18 Blood Pressure Pulse Oximetry 90 09/11/20 16:00 09/11/20 17:44 09/11/20 18:00 Temperature 37.1 C Pulse Rate 97 91 Respiratory Rate 20 Blood Pressure 125/66 Pulse Oximetry 92 09/11/20 19:46 09/11/20 20:00 09/11/20 22:00 Temperature 37.0 C Pulse Rate 95 96 93 Respiratory Rate 20 Blood Pressure 115/75 Pulse Oximetry 93 93 09/11/20 22:45 09/11/20 22:48 09/11/20 22:52 Temperature Pulse Rate 94 95 93 Respiratory Rate 18 18 Blood Pressure Pulse Oximetry 93 09/11/20 22:58 09/12/20 00:00 09/12/20 02:00 Temperature 37.0 C Pulse Rate 89 87 86 Respiratory Rate 24 H 21 H Blood Pressure 132/70 Pulse Oximetry 94 96 09/12/20 03:30 09/12/20 03:31 09/12/20 03:40 Temperature 37.0 C Pulse Rate 85 85 85 Respiratory Rate 23 H 22 H 16 Blood Pressure 143/79 H Pulse Oximetry 96 97 09/12/20 04:00 09/12/20 06:00 09/12/20 07:59 Temperature 36.6 C Pulse Rate 86 82 84 Respiratory Rate 17 Blood Pressure 139/84 Pulse Oximetry 97 95 09/12/20 08:00 09/12/20 08:19 09/12/20 08:26 Temperature Pulse Rate 79 90 87 Respiratory Rate 20 18 Blood Pressure Pulse Oximetry 95 09/12/20 09:25 09/12/20 10:00 09/12/20 12:00 Temperature 36.6 C Pulse Rate 87 90 90 Respiratory Rate 20 Blood Pressure 154/81 H Pulse Oximetry 91 Intake/Output Intake/Output: In
[2020-09-12 14:51] LABS: Glucose Point of Care 181 mg/dl (65-105)
--- NOTE | 2020-09-12 14:58 | PM.PNNEP ---
Progress Note: A&P Assessment and Plan (1) SHAKIRA (acute kidney injury): Code(s): N17.9 - Acute kidney failure, unspecified Status: Acute Assessment and Plan: multifactorial: - infection (cellulitis +/- aspiration pneumonia) - insensible losses (fevers) - fluctuating hemodynamics - hypoxia - necessity of diuretic therapy renal ultrasound normal urine lytes suggest pre-renal azotemia and urine eosinophis negative follow trend of repeat labs and urine output remains at high risk for requiring renal replacement therapy/dialysis (2) Stage 3a chronic kidney disease: Code(s): N18.31 - Chronic kidney disease, stage 3a Status: Chronic Assessment and Plan: baseline creatinine runs ~ 1.3 - 1.6mg/dl presumably due to HTN and diabetes along with LEONIDAS (3) Hyperkalemia: Code(s): E87.5 - Hyperkalemia Status: Acute Assessment and Plan: as noted by AM labs due to lower extremity wounds(?) versus just his SHAKIRA/ARF(?) received medical management with no improvement will repeat medical management again and recheck K+ if conservative therapy fails to keep this in check, 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 (4) Acute and chronic respiratory failure with hypoxia: Code(s): J96.21 - Acute and chronic respiratory failure with hypoxia Status: Acute Assessment and Plan: due to combination of LEONIDAS, OHS, CHF, and possibly aspiration pneumonia requiring high oxygen demands at this time Pulmonary following (5) Cellulitis of both lower extremities: Code(s): L03.115 - Cellulitis of right lower limb; L03.116 - Cellulitis of left lower limb Status: Acute Assessment and Plan: true cellulitis versus chronic venous stasis changes on antibiotics (6) CHF (congestive heart failure): Qualifiers: Heart failure chronicity: unspecified Heart failure type: unspecified Qualified Code(s): I50.9 - Heart failure, unspecified Code(s): I50.9 - Heart failure, unspecified Status: Acute Assessment and Plan: as noted by admission imaging on IV lasix Cardiology following (7) Diabetes: Code(s): E11.9 - Type 2 diabetes mellitus without complications Status: Acute Assessment and Plan: follow accuchecks glycemic control Long and extensive discussion (> 20 minutes) with patient regarding his ongoing/worsening renal failure now associated with hyperkalemia -- I informed him that he may need renal replacement therapy/dialysis if this continues to be an issue despite conservative therapy; he tells me that he has been on dialysis before and knows what it is and voiced understanding to this possibility. We will see the trend of his his labs this evening and tomorrow morning before making a final decision regarding this possible intervention. Will continue to follow Subjective Date/time seen: 09/12/20 14:58 Apparently had some issues with acute confusion earlier today; concerns that cellutlitis is progressing given physical exam findings; hyperkalemic this AM requiring medical management; Surgery consulted due to possible concerns of necrotizing fasciitis. Exam Narrative: Exam Narrative: General: ill appearing male in sleeping in bed Heart: normal S1 and S2; no rub Lungs: clear to auscultation Abdomen: soft, nontender, nondistended, positive bowel sounds Extremities: no cyanosis or clubbing; no edema Skin: warm and dry Objective Data Vital Signs Vital Signs: Vital Signs Temp Pulse Resp BP Pulse Ox 09/12/20 14:00 90 09/12/20 13:57 90 18 09/12/20 13:50 89 19 09/12/20 12:00 36.6 C 90 20 154/81 H 91 09/12/20 10:00 90 09/12/20 09:25 87 09/12/20 08:26 87 18 09/12/20 08:19 90 20 09/12/20 08:00 79 95 09/12/20 07:59 36.6 C 84 17 139/84 95 09/12/20 06:00 82 09/12/20
--- NOTE | 2020-09-12 14:58 | P.PNNP_ITS ---
Progress Note: A&P Assessment and Plan (1) SHAKIRA (acute kidney injury): Code(s): N17.9 - Acute kidney failure, unspecified Status: Acute Assessment and Plan: * multifactorial: - infection (cellulitis +/- aspiration pneumonia) - insensible losses (fevers) - fluctuating hemodynamics - hypoxia - necessity of diuretic therapy * renal ultrasound normal * urine lytes suggest pre-renal azotemia and urine eosinophis negative * follow trend of repeat labs and urine output * remains at high risk for requiring renal replacement therapy/dialysis (2) Stage 3a chronic kidney disease: Code(s): N18.31 - Chronic kidney disease, stage 3a Status: Chronic Assessment and Plan: * baseline creatinine runs ~ 1.3 - 1.6mg/dl * presumably due to HTN and diabetes along with LEONIDAS (3) Hyperkalemia: Code(s): E87.5 - Hyperkalemia Status: Acute Assessment and Plan: * as noted by AM labs * due to lower extremity wounds(?) versus just his SHAKIRA/ARF(?) * received medical management with no improvement * will repeat medical management again and recheck K+ * if conservative therapy fails to keep this in check, 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 (4) Acute and chronic respiratory failure with hypoxia: Code(s): J96.21 - Acute and chronic respiratory failure with hypoxia Status: Acute Assessment and Plan: * due to combination of LEONIDAS, OHS, CHF, and possibly aspiration pneumonia * requiring high oxygen demands at this time * Pulmonary following (5) Cellulitis of both lower extremities: Code(s): L03.115 - Cellulitis of right lower limb; L03.116 - Cellulitis of left lower limb Status: Acute Assessment and Plan: * true cellulitis versus chronic venous stasis changes * on antibiotics (6) CHF (congestive heart failure): Qualifiers: Heart failure chronicity: unspecified Heart failure type: unspecified Qualified Code(s): I50.9 - Heart failure, unspecified Code(s): I50.9 - Heart failure, unspecified Status: Acute Assessment and Plan: * as noted by admission imaging * on IV lasix * Cardiology following (7) Diabetes: Code(s): E11.9 - Type 2 diabetes mellitus without complications Status: Acute Assessment and Plan: * follow accuchecks * glycemic control Long and extensive discussion (> 20 minutes) with patient regarding his on going/worsening renal failure now associated with hyperkalemia -- I informed him that he may need renal replacement therapy/dialysis if this continues to be an issue despite conservative therapy; he tells me that he has been on dialysis before and knows what it is and voiced understanding to this possibility. We will see the trend of his his labs this evening and tomorrow morning before making a final decision regarding this possible intervention. Will continue to follow Subjective Date/time seen: 09/12/20 14:58 Apparently had some issues with acute confusion earlier today; concerns that cellutlitis is progressing given physical exam findings; hyperkalemic this AM requiring medical management; Surgery consulted due to possible concerns of necrotizing fasciitis. Exam Narrative: Exam Narrative: General: ill appearing male in sleeping in bed Heart: normal S1 and S2; no rub Lungs: clear to auscultation Abdomen: soft, nontender, nondistended, positive bowel sounds Extremities: no cyanosis or clubbing; no edema Skin: warm and dry
--- NOTE | 2020-09-12 15:07 | PM.CNGS ---
Assessment and Plan Assessment and plan (1) Cellulitis of both lower extremities: Code(s): L03.115 - Cellulitis of right lower limb; L03.116 - Cellulitis of left lower limb Status: Acute Assessment and Plan: no evidence of gas-forming infection or necrotizing soft tissue infection. Keep legs elevated, continue IV antibiotics. Will start triple care antifungal ointment twice a day to both lower extremities over the scaly areas on the anterior lower legs. Used chucks to lightly cover. No need for surgical debridement or fasciotomy. Will sign off. (2) Lipodermatosclerosis of both lower extremities: Code(s): I83.11 - Varicose veins of right lower extremity with inflammation; I83.12 - Varicose veins of left lower extremity with inflammation Status: Chronic Assessment and Plan: Associated with venous stasis chronic disease and on the anterior aspect of both lower extremities. Blistering in this area on the left lower extremity associated with the severe cellulitis. (3) Insulin dependent diabetes mellitus: Status: Chronic (4) Morbid obesity: Code(s): E66.01 - Morbid (severe) obesity due to excess calories Status: Chronic History of Present Illness Consult details Consult date: 09/12/20 Reason for consult: other ( Possible left leg necrotizing infection) Narrative: patient is a 49-year-old man with morbid obesity and multiple medical problems. He has been admitted here before with cellulitis of his lower extremities. He is admitted at this time with cellulitis and pulmonary concerns. He has been on IV antibiotics. His right leg initially was the problem but now the left leg has become more swollen and has fluid weeping from the leg. The leg is tender with redness creeping up the medial aspect of the leg. Patient is seen now in consultation at the request of the hospitalist regarding possible necrotizing or anaerobic soft tissue infection. Patient is sleepy and not really able to give much history. He does admit that the leg is tender and painful. 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 Chronic obstructive pulmonary disease Congestive heart failure Current use of termination clerk anticoagulation Diabetic peripheral neuropathy Diastolic dysfunction Essential hypertension Gastroesophageal reflux disease History of cellulitis Right lower extremity Insulin dependent diabetes mellitus Morbid obesity Obstructive sleep apnea Osteoarthritis Surgical History Surgical History Amputation of one or more toes Amputation of several toes on both feet. Second toe on the right and 2nd 3rd on the left Family History Family History Father Diabetes mellitus Cerebrovascular accident Mother DVT (deep venous thrombosis) Cerebrovascular accident Sibling Diabetes mellitus Cerebrovascular accident Social History Social History Social History: The patient has been a resident at [facility] for about a year. He smoked remotely as a young man and quit in 1990. No alcohol or illicit substance use. He is not and has no
[2020-09-12] MEDS: CLINDAMYCIN 600 MG/D5W 50 ML 600 MG/50 ML PIGGYBACK 100 MG IVPB ×2 (15:30→22:30)
--- NOTE | 2020-09-12 15:47 | PM.PNPUL ---
Progress Note: A&P Assessment and Plan (1) Obesity hypoventilation syndrome: Code(s): E66.2 - Morbid (severe) obesity with alveolar hypoventilation Status: Acute Assessment and Plan: Patient with obesity hypoventilation and a history of restrictive ventilatory abnormality with a total lung capacity of 66% and no evidence of obstruction. I do not believe the patient has COPD or any reactive airways disease. his most recent blood gas on high-flow nasal cannula oxygen is 7.31/59/65. 09/10 I have ordered the patient to be placed on his BiPAP 20/16 with 80% FiO2 which were the optimal pressures on his most recent sleep study of 05/26/2020. 09/11 patient tolerated BiPAP 20/16 is down to 60% FiO2 and he said that he slept well with this setting. Will continue nocturnal BiPAP. 09/12 Patient wore BiPAP 20/16 at 40% overnight. Continue, tolerating well. (2) Chronic respiratory failure with hypoxia and hypercapnia: Code(s): J96.11 - Chronic respiratory failure with hypoxia; J96.12 - Chronic respiratory failure with hypercapnia Status: Acute Assessment and Plan: patient had a home O2 assessment 06/12 with resting room air oxygen saturation 96%. Exercise on room air saturations were 85%, exercise on 1 L saturations 86%, exercise on 2 L saturations 87%, exercise on 3 L nasal cannula saturations 90%. Currently the patient is requiring much more oxygen in the etiology of this includes sepsis from his cellulitis, aspiration and or fluid overload. he had no pneumonia complaints prior to this presentation. Currently he is on Zosyn and vancomycin which should be adequate coverage for cellulitis and or aspiration pneumonia -pneumonitis. Patient was given IV Lasix this morning. Patient is currently on Xarelto for prior DVTs. I will obtain lower extremity Dopplers to exclude DVT at this time which were negative. Worsening renal failure and now with hyperkalemia. Left lower leg cellulitis without evidence of necrotizing fasciitis or an abscess by CT scan. On vanco, cefepime and clinda for now. 09/10 On high flow 60L and 70% with sats 92%. 09/11 on high flow 50 L and 55% with sats 96% 09/12 Patient is currently off BiPAP on 4 L nasal cannula with saturations 91%. Will follow with you. Subjective Date/time seen: 09/12/20 15:47 Interval history: Patient is a 49-year-old male with morbid obesity, hypoxemia on 2 L nasal cannula oxygen at the longterm, Congestive heart failure, DM s/p toe amputations, lower extremity DVTs on Xarelto, and obstructive sleep apnea who was started on BiPAP 20/16 with 4 L bleed in per sleep study on 05/26/20. patient was seen in the Pulmonary Clinic on 09/08/2020 and stated he had a good clinical response to the BiPAP 20/16 with 4 L bleed in. Until recently when he feel the machine was clean by the nursing staff at the longterm and he said it was not working since then. Patient had no evidence of COPD on his CT scan of the chest 05/15/2019 and his Symbicort was discontinued in the clinic. Patient also had increased edema of the lower extremities and his Lasix was increased from 20 mg for 40 mg a day to 60 mg a day. On 09/09 patient states that he had developed fever, chills without any shortness of breath, phlegm production, hemoptysis or chest pain. Patient did notice Left leg and left hip pain. on 09/09 he also had vomiting episodes. Patient presented to the emergency room with a white blood cell count of 14.5, ABG of 7.31/62/64 and he was placed on supplemental oxygen. Patient had a lactic acidosis and received fluid resuscitation. patient was treated with Zosyn and vancomycin for possible cellulitis. Patient developed hypoxemia And was given IV Lasix for concern of fluid overload and required high-flow nasal cannula oxygen. 09/10 When I talked to the patient today he said he had not had no respiratory complaints and states that he is breathing quite comfortably. He den
[2020-09-12 17:19] LABS: Glucose Point of Care 201 mg/dl (65-105)
[2020-09-12 18:48] LABS: Glucose Point of Care 180 mg/dl (65-105)
[2020-09-12 20:41] LABS: Glucose Point of Care 166 mg/dl (65-105)
[2020-09-12 22:14] LABS: Anion Gap 12 mmol/L (8-16); Blood Urea Nitrogen 118 mg/dL (9-20); Calcium 7.9 mg/dL (8.4-10.2); Carbon Dioxide 27 mmol/L (22-30); Chloride 97 mmol/L (98-107); Estimated CRCL calculation 24 ml/min; Estimated Glomerular Filt Rate 10; Glucose 176 mg/dL (75-110); Potassium 5.7 mmol/L (3.4-5.0); Sodium 136 mmol/L (137-145)
[2020-09-13] VITALS (30 sets, daily range): BP systolic 124–148; BP diastolic 63–75; PULSE 77–88; RESP 17–26; TEMP 36.4–36.9; O2SAT 92–100
[2020-09-13] MEDS: IPRATROPIUM BR 0.02% INH SOLN 0.5 MG/2.5 ML VIAL INHALATION ×4 (02:27→21:28)
[2020-09-13] MEDS: ALBUTEROL SULFATE NEB 2.5 MG/0.5 ML INH INHALATION ×4 (02:28→21:28)
[2020-09-13] MEDS: CALCIUM GLUC 2,000 MG/NS 100ML 2,000 MG/100 ML BAG 100 MG IVPB (02:34)
[2020-09-13] MEDS: SODIUM POLYSTYRENE SULFONONATE 15 GM/60 ML BTL 30 GM PO (02:37)
[2020-09-13] MEDS: CLINDAMYCIN 600 MG/D5W 50 ML 600 MG/50 ML PIGGYBACK 100 MG IVPB ×3 (05:07→20:57)
[2020-09-13 05:44] LABS: Basophils Percent Auto 0.1 % (0.2-1.2); Eosinophils Absolute Auto 0.1 K/mm3 (0-0.3); Hematocrit 33.3 % (42.0-52.0); Hemoglobin 10.1 g/dL (14.0-18.0); Immature Granulocyte Absolute 0.06 K/mm3 (0.00-0.031); Immature Granulocyte Percent A 0.4 % (0-0.5); Immature Platelet Fraction Pct 15.3 % (0.9-11.2); Lymphocytes Absolute Auto 1.29 K/mm3 (0.9-3.2); Lymphocytes Percent Auto 8.8 % (18.3-44.2); Mean Corpuscular HGB Conc 30.3 g/dl (32-36); Mean Corpuscular Hemoglobin 28.1 pg (26-34); Mean Corpuscular Volume 92.8 fl (80-100); Mean Platelet Volume 12.5 fl (7.4-10.4); Monocytes Absolute Auto 1.1 K/mm3 (0.1-0.6); Monocytes Percent Auto 7.4 % (2.6-8.5); Neutrophils Absolute Auto 12.1 K/mm3 (1.3-6.7); Neutrophils Percent Auto 82.3 % (45.5-73.1); Nucleated Red Blood Cells Perc 0.1 % (0.0-0.2); Platelet Count Result 111 k/mm3 (150-375); Red Blood Count 3.59 M/mm3 (4.6-6.20); Red Cell Distribution Width 15.9 % (11.5-14.5); White Blood Count 14.7 K/mm3 (4.5-10.0)
[2020-09-13 06:01] LABS: Albumin Level 3.3 g/dL (3.5-5.1); Anion Gap 10 mmol/L (8-16); Blood Urea Nitrogen 119 mg/dL (9-20); Carbon Dioxide 28 mmol/L (22-30); Chloride 97 mmol/L (98-107); Creatine Kinase 1263 U/L (55-170); Estimated CRCL calculation 23 ml/min; Estimated Glomerular Filt Rate 10; Glucose 152 mg/dL (75-110); Phosphorus 7.5 mg/dL (2.5-4.5); Potassium 5.4 mmol/L (3.4-5.0); Sodium 135 mmol/L (137-145)
[2020-09-13 08:21] LABS: Glucose Point of Care 151 mg/dl (65-105)
[2020-09-13] MEDS: LORATADINE 10 MG TABLET PO (09:37)
[2020-09-13] MEDS: METOPROLOL SUCCINATE EXT REL 25 MG TABCR PO (09:37)
[2020-09-13] MEDS: POLYSACCHARIDE IRON COMPLEX 150 MG CAPSULE PO (09:37)
[2020-09-13] MEDS: INSULIN GLARGINE (*BKC) 100 UNITS/ML 20 UNITS SUB-Q ×2 (09:38→17:12)
[2020-09-13] MEDS: GABAPENTIN 300 MG CAPSULE PO ×2 (09:38→17:12)
[2020-09-13 11:47] LABS: Glucose Point of Care 166 mg/dl (65-105)
[2020-09-13 12:01] LABS: Albumin Level 3.3 g/dL (3.5-5.1); Anion Gap 12 mmol/L (8-16); Blood Urea Nitrogen 117 mg/dL (9-20); Calcium 7.9 mg/dL (8.4-10.2); Carbon Dioxide 28 mmol/L (22-30); Chloride 95 mmol/L (98-107); Estimated CRCL calculation 24 ml/min; Estimated Glomerular Filt Rate 10; Glucose 175 mg/dL (75-110); Phosphorus 7.4 mg/dL (2.5-4.5); Potassium 5.2 mmol/L (3.4-5.0); Sodium 135 mmol/L (137-145)
--- NOTE | 2020-09-13 12:03 | PM.IMPN ---
Progress Note: A&P Assessment and Plan (1) Bilateral cellulitis of lower leg: Code(s): L03.116 - Cellulitis of left lower limb; L03.115 - Cellulitis of right lower limb Status: Acute Assessment and Plan: IV antibiotics coverage, adding cefepime clindamycin and vancomycin, discontinue Rocephin, patient received vancomycin and Zosyn initially that were discontinued Because of renal failure, monitor vital signs, CT noncontrast to the left lower extremity, did not show evidence of necrotizing fasciitis. plan to consult Infectious Disease (2) SHAKIRA (acute kidney injury): Code(s): N17.9 - Acute kidney failure, unspecified Status: Acute Assessment and Plan: Monitor renal function and electrolytes Consult nephrology (3) Pulmonary hypertension: Code(s): I27.20 - Pulmonary hypertension, unspecified Status: Acute Assessment and Plan: Lasix p.r.n. (4) Congestive heart failure: Code(s): I50.9 - Heart failure, unspecified Status: Acute Assessment and Plan: Lasix, beta-emerson, no MARKO-inhibitor in the light of his renal dysfunction (5) Acute and chronic respiratory failure with hypoxia: Code(s): J96.21 - Acute and chronic respiratory failure with hypoxia Status: Acute Assessment and Plan: Wean patient off oxygen as tolerated Treat CHF and COPD (6) COPD (chronic obstructive pulmonary disease): Code(s): J44.9 - Chronic obstructive pulmonary disease, unspecified Status: Acute Assessment and Plan: Bronchodilators Steroids Pulmonary consult (7) 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: Code(s): I82.5Y3 - Chronic embolism and thrombosis of unspecified deep veins of proximal lower extremity, bilateral Status: Acute Assessment and Plan: Patient on Xarelto (8) Cellulitis: Code(s): L03.90 - Cellulitis, unspecified Status: Acute Assessment and Plan: IV antibiotics (9) Rhabdomyolysis: Code(s): M62.82 - Rhabdomyolysis Status: Acute Assessment and Plan: keep patient well hydrated, monitor CK level, and renal function Subjective Date/time seen: 09/13/20 12:03 Interval history: patient seems more comfortable and more alert today, still complain of left lower extremity redness swelling and discomfort. Exam Const: General: cooperative and no acute distress HENMT: Head: normal to inspection Eyes: General: appearance normal, both eyes and all related structures Neck: Neck: normal visual inspection Chest: Chest palpation & inspection: normal inspection of the chest Resp: Effort & Inspection: normal respiratory effort Cardio: Jugular venous distension: no JVD Rate: regular rate GI: Inspection: normal to inspection and non-distended Extrem: Other: Redness and swelling to the left lower extremity, worsening gradually comparing to yesterday, signs of purulent secretion at posterior and lateral aspect of the left leg, extension of redness up to the left thigh, significant tenderness. Objective Data Vital Signs Vital Signs: Vital Signs - 24 hr 09/12/20 13:50 09/12/20 13:57 09/12/20 14:00 Temperature Pulse Rate 89 90 90 Respiratory Rate 19 18 Blood Pressure Pulse Oximetry 09/12/20 15:57 09/12/20 16:00 09/12/20 18:00 Temperature 98.2 F Pulse Rate 90 89 90 Respiratory Rate 17 Blood Pressure 151/87 H Pulse Oximetry 93 94 09/12/20 19:38 09/12/20 20:00 09/12/20 20:47 Temperature 97.2 F L Pulse Rate 86 86 85 Respiratory Rate 22 H 18 Blood Pressure 119/68 Pulse Oximetry 91 85 L 09/12/20 20:51 09/12/20 20:57 09/12/20 22:00 Temperature Pulse Rate 88 88 Respiratory Rate 18 Blood Pressure Pulse Oximetry 92 09/12/20 23:05 09/12/20 23:34 09/13/20 00:00 Temperature 98.6 F Pulse Rate 86 81 79 Respiratory Rate 22 H 20 Blood Pressure 128/73 Pulse Oximetry 93 96 95
--- NOTE | 2020-09-13 14:40 | PM.PNPUL ---
Progress Note: A&P Assessment and Plan (1) Obesity hypoventilation syndrome: Code(s): E66.2 - Morbid (severe) obesity with alveolar hypoventilation Status: Acute Assessment and Plan: Patient with obesity hypoventilation on BiPAP 20/16 with 4 L bleed in per sleep study on 05/26/20 and a history of restrictive ventilatory abnormality with a total lung capacity of 66% and no evidence of obstruction. I do not believe the patient has COPD or any reactive airways disease. his most recent blood gas on high-flow nasal cannula oxygen is 7.31/59/65. 09/10 I have ordered the patient to be placed on his BiPAP 20/16 with 80% FiO2 which were the optimal pressures on his most recent sleep study of 05/26/2020. 09/11 patient tolerated BiPAP 20/16 is down to 60% FiO2 and he said that he slept well with this setting. Will continue nocturnal BiPAP. 09/12 Patient wore BiPAP 20/16 at 40% overnight. Continue, tolerating well. 09/13 Continue BiPAP 20/16 and will decrease to 35% FIO2. Will check ABG in the morning prior to removal. Will check overnight oximetry. (2) Chronic respiratory failure with hypoxia and hypercapnia: Code(s): J96.11 - Chronic respiratory failure with hypoxia; J96.12 - Chronic respiratory failure with hypercapnia Status: Acute Assessment and Plan: patient had a home O2 assessment 06/12 with resting room air oxygen saturation 96%. Exercise on room air saturations were 85%, exercise on 1 L saturations 86%, exercise on 2 L saturations 87%, exercise on 3 L nasal cannula saturations 90%. Currently the patient is requiring much more oxygen in the etiology of this includes sepsis from his cellulitis, aspiration and or fluid overload. he had no pneumonia complaints prior to this presentation. Currently he is on Zosyn and vancomycin which should be adequate coverage for cellulitis and or aspiration pneumonia -pneumonitis. Patient was given IV Lasix this morning. Patient is currently on Xarelto for prior DVTs. I will obtain lower extremity Dopplers to exclude DVT at this time which were negative. Worsening renal failure and now with hyperkalemia. Left lower leg cellulitis without evidence of necrotizing fasciitis or an abscess by CT scan. On vanco, cefepime and clinda for now. 09/10 On high flow 60L and 70% with sats 92%. 09/11 on high flow 50 L and 55% with sats 96% 09/12 Patient is currently off BiPAP on 4 L nasal cannula with saturations 91%. 09/13 On 4 L NC with sats 91%, continue Will follow with you. Subjective Date/time seen: 09/13/20 14:40 Interval history: Patient is a 49-year-old male with morbid obesity, hypoxemia on 2 L nasal cannula oxygen at the [facility], Congestive heart failure, DM s/p toe amputations, lower extremity DVTs on Xarelto, and obstructive sleep apnea who was started on BiPAP 20/16 with 4 L bleed in per sleep study on 05/26/20. patient was seen in the Pulmonary Clinic on 09/08/2020 and stated he had a good clinical response to the BiPAP 20/16 with 4 L bleed in. Until recently when he feel the machine was clean by the nursing staff at the [facility] and he said it was not working since then. Patient had no evidence of COPD on his CT scan of the chest 05/15/2019 and his Symbicort was discontinued in the clinic. Patient also had increased edema of the lower extremities and his Lasix was increased from 20 mg for 40 mg a day to 60 mg a day. On 09/09 patient states that he had developed fever, chills without any shortness of breath, phlegm production, hemoptysis or chest pain. Patient did notice Left leg and left hip pain. on 09/09 he also had vomiting episodes. Patient presented to the emergency room with a white blood cell count of 14.5, ABG of 7.31/62/64 and he was placed on supplemental oxygen. Patient had a lactic acidosis and received fluid resuscitation. patient was treated with Zosyn and vancomycin for possible cellulitis. Patient developed hypoxemia And was
--- NOTE | 2020-09-13 15:18 | P.PNNP_ITS ---
Progress Note: A&P Assessment and Plan (1) SHAKIRA (acute kidney injury): Code(s): N17.9 - Acute kidney failure, unspecified Status: Acute Assessment and Plan: * multifactorial: - infection (cellulitis +/- aspiration pneumonia) - insensible losses (fevers) - fluctuating hemodynamics - hypoxia - necessity of diuretic therapy (on hold currently) * renal ultrasound normal * urine lytes suggest pre-renal azotemia and urine eosinophis negative * follow trend of repeat labs and urine output * remains at high risk for requiring renal replacement therapy/dialysis (2) Stage 3a chronic kidney disease: Code(s): N18.31 - Chronic kidney disease, stage 3a Status: Chronic Assessment and Plan: * baseline creatinine runs ~ 1.3 - 1.6mg/dl * presumably due to HTN and diabetes along with LEONIDAS (3) Hyperkalemia: Code(s): E87.5 - Hyperkalemia Status: Acute Assessment and Plan: * doing better * due to lower extremity wounds(?) versus just his SHAKIRA/ARF(?) * received medical management x 2 with improvement * follow trend * if conservative therapy fails to keep this in check, 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 (4) Acute and chronic respiratory failure with hypoxia: Code(s): J96.21 - Acute and chronic respiratory failure with hypoxia Status: Acute Assessment and Plan: * due to combination of LEONIDAS, OHS, CHF, and possibly aspiration pneumonia * requiring high oxygen demands but seems to be improving * Pulmonary following (5) Cellulitis of both lower extremities: Code(s): L03.115 - Cellulitis of right lower limb; L03.116 - Cellulitis of left lower limb Status: Acute Assessment and Plan: * true cellulitis versus chronic venous stasis changes versus combination of both * imaging studies noted * on broad spectrum antibiotics (6) CHF (congestive heart failure): Qualifiers: Heart failure chronicity: unspecified Heart failure type: unspecified Qualified Code(s): I50.9 - Heart failure, unspecified Code(s): I50.9 - Heart failure, unspecified Status: Acute Assessment and Plan: * as noted by admission imaging * IV lasix on hold * follow I/Os * Cardiology following (7) Diabetes: Code(s): E11.9 - Type 2 diabetes mellitus without complications Status: Acute Assessment and Plan: * follow accuchecks * on Lantus and SSI Will continue to follow Subjective Date/time seen: 09/13/20 15:18 No real significant change at this time -- BUN and creatinine about the same but improvement in potassium level noted; respiratory status seems relatively stable if not mildly better; tolerated IVF fluid challenge yesterday (although no real improvement in renal function noted); still making urine and tolerating BiPAP therapy in general. Exam Narrative: Exam Narrative: General: Large male in NAD Heart: normal S1 and S2; no rub Lungs: coarse with decreased breath sounds at bases Abdomen: soft, nontender, nondistended, positive bowel sounds Extremities: no cyanosis or clubbing; 2+ edema Skin: bilateral erythema on top of chronic thickened skin changes (L>R) Objective Data Vital Signs Vital Signs: Vital Signs Temp Pulse Resp BP Pulse Ox 09/13/20 14:11 78 18 100 09/13/20 14:00 78 09/13/20 12:00 81
--- NOTE | 2020-09-13 15:18 | PM.PNNEP ---
Progress Note: A&P Assessment and Plan (1) SHAKIRA (acute kidney injury): Code(s): N17.9 - Acute kidney failure, unspecified Status: Acute Assessment and Plan: multifactorial: - infection (cellulitis +/- aspiration pneumonia) - insensible losses (fevers) - fluctuating hemodynamics - hypoxia - necessity of diuretic therapy (on hold currently) renal ultrasound normal urine lytes suggest pre-renal azotemia and urine eosinophis negative follow trend of repeat labs and urine output remains at high risk for requiring renal replacement therapy/dialysis (2) Stage 3a chronic kidney disease: Code(s): N18.31 - Chronic kidney disease, stage 3a Status: Chronic Assessment and Plan: baseline creatinine runs ~ 1.3 - 1.6mg/dl presumably due to HTN and diabetes along with LEONIDAS (3) Hyperkalemia: Code(s): E87.5 - Hyperkalemia Status: Acute Assessment and Plan: doing better due to lower extremity wounds(?) versus just his SHAKIRA/ARF(?) received medical management x 2 with improvement follow trend if conservative therapy fails to keep this in check, 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 (4) Acute and chronic respiratory failure with hypoxia: Code(s): J96.21 - Acute and chronic respiratory failure with hypoxia Status: Acute Assessment and Plan: due to combination of LEONIDAS, OHS, CHF, and possibly aspiration pneumonia requiring high oxygen demands but seems to be improving Pulmonary following (5) Cellulitis of both lower extremities: Code(s): L03.115 - Cellulitis of right lower limb; L03.116 - Cellulitis of left lower limb Status: Acute Assessment and Plan: true cellulitis versus chronic venous stasis changes versus combination of both imaging studies noted on broad spectrum antibiotics (6) CHF (congestive heart failure): Qualifiers: Heart failure chronicity: unspecified Heart failure type: unspecified Qualified Code(s): I50.9 - Heart failure, unspecified Code(s): I50.9 - Heart failure, unspecified Status: Acute Assessment and Plan: as noted by admission imaging IV lasix on hold follow I/Os Cardiology following (7) Diabetes: Code(s): E11.9 - Type 2 diabetes mellitus without complications Status: Acute Assessment and Plan: follow accuchecks on Lantus and SSI Will continue to follow Subjective Date/time seen: 09/13/20 15:18 No real significant change at this time -- BUN and creatinine about the same but improvement in potassium level noted; respiratory status seems relatively stable if not mildly better; tolerated IVF fluid challenge yesterday (although no real improvement in renal function noted); still making urine and tolerating BiPAP therapy in general. Exam Narrative: Exam Narrative: General: Large male in NAD Heart: normal S1 and S2; no rub Lungs: coarse with decreased breath sounds at bases Abdomen: soft, nontender, nondistended, positive bowel sounds Extremities: no cyanosis or clubbing; 2+ edema Skin: bilateral erythema on top of chronic thickened skin changes (L>R) Objective Data Vital Signs Vital Signs: Vital Signs Temp Pulse Resp BP Pulse Ox 09/13/20 14:11 78 18 100 09/13/20 14:00 78 09/13/20 12:00 81 17 94 09/13/20 11:36 36.7 C 83 17 147/75 H 94 09/13/20 10:00 83 09/13/20 09:37 83 09/13/20 08:51 86 18 09/13/20 08:44 94 09/13/20 08:43 80 18 09/13/20 08:00 36.6 C 81 18 136/72 94 09/13/20 06:00 77 09/13/20 04:00 79 95 09/13/20 03:41 36.9 C 85 22 H 148/75 H 95 09/13/20 02:40 82 21 H 09/13/20 02:29 78 23 H 95 09/13/20 02:00 83 09/13/20 00:00 79 95 09/12/20 23:34 37.0 C 81 20 128/73 96 09/12/20 23:05 86 22 H 93 09/12/20 22:00 88 09/12/20 20:57
[2020-09-13 16:21] LABS: Glucose Point of Care 146 mg/dl (65-105)
--- NOTE | 2020-09-13 19:52 | PM.PNCARD ---
Progress Note: A&P Assessment and Plan (1) Congestive heart failure: Code(s): I50.9 - Heart failure, unspecified Status: Acute Assessment and Plan: He has grade II diastolic dysfunction demonstrated by echocardiogram in February 2020. EF 65-70%. Clinically not significantly decompensated in heart failure. His medical regimen was adjusted to support his diastolic noncompliace - on diltiazem and metoprolol. Monitor volume status closely. Hemodialysis per Nephrology. 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 Patient must receive DVT prophylaxis or re-initiate systemic anticoagulation. Given lower extremity wounds SCDs unlikely to be tolerated. Heparin 5000 units subcutaneous q.8 hours at minimum But must be cautious due to the development of thrombocytopenia. (3) Thrombocytopenia: Code(s): D69.6 - Thrombocytopenia, unspecified Status: Acute Assessment and Plan: Monitor platelet count and bleeding closely. H&H stable. Patient is off anticoagulation and needs DVT prophylaxis at a minimum as noted above. If platelet counts continued to drop will need to discontinue heparin. if stable and no plans for hemodialysis access reinitiate anticoagulation however Eliquis may be a better option over Xarelto due to renal failure and CrCl 24 GFR 10. (4) Essential hypertension: Code(s): I10 - Essential (primary) hypertension Status: Acute Assessment and Plan: Continue to monitor, blood pressure reasonably controlled at this time. (5) Obesity hypoventilation syndrome: Code(s): E66.2 - Morbid (severe) obesity with alveolar hypoventilation Status: Acute Assessment and Plan: On BiPAP at [facility] and currently on hig flow O2. Pulm following. Subjective Date/time seen: Date of service: 09/13/20 19:52 Follow-up for CHF/pulmonary edema patient feels about the same. Which is taken off BiPAP which helped some significantly. Denies shortness of breath this time in bed. Short of breath with any activity. Denies chest pain or palpitations. Hemodialysis access placement deferred for now by nephrology. No new issues overnight. Tolerating BiPAP well But remains on significant O2 supplementation 4 L nasal cannula. Review of Systems Review of Systems: All systems reviewed & are unremarkable except as noted in HPI and below Constitutional: Constitutional: Reports as per HPI, Reports no additional constitutional complaints, Reports fatigue and Reports weakness Eyes: Eyes: Reports as per HPI and Reports no additional eye complaints ENT: Reports system reviewed and no additional complaints, except as documented and Reports as per HPI Cardiovascular: Cardiovascular: Reports as per HPI, Reports no additional cardiovascular complaints, Denies chest pain, Denies palpitations and Reports dyspnea Respiratory: Respiratory: Reports as per HPI, Reports dyspnea and Reports dyspnea on exertion Gastrointestinal: Gastrointestinal: Reports as per HPI, Reports no additional gastrointestinal complaints and Denies abdominal pain Genitourinary: Genitourinary: Reports as per HPI Musculoskeletal: Musculoskeletal: Reports as per HPI and Reports myalgias Integumentary/Breasts: Skin/Breast: Reports system reviewed and no additional complaints, except as docu and Reports as per HPI Neurologic: Reports system reviewed and no additional complaints, except as documented and Reports as per HPI Psychiatric: Psychiatric: Reports as per HPI Endocrine: Endocrine: Reports no additional endocrine complaints and Reports as per HPI Hematologic/Lymphatic: Hematologic/Lymphatic: Reports no additional hematologic/lymphatic c
[2020-09-13 20:43] LABS: Glucose Point of Care 153 mg/dl (65-105)
[2020-09-13] MEDS: HEPARIN SODIUM 5,000 UNITS/ML VIAL 5000 UNITS SUB-Q (20:57)
[2020-09-13] MEDS: ACETAMINOPHEN 325 MG TABLET 650 MG PO (21:00)
[2020-09-14] VITALS (22 sets, daily range): BP systolic 131–153; BP diastolic 69–83; PULSE 75–88; RESP 14–23; TEMP 36.4–37; O2SAT 92–97
--- NOTE | 2020-09-14 04:23 | PCRCNOTE ---
apnea study; 0200 tx was omitted
[2020-09-14 05:16] LABS: Alveolar/Arterial O2 Gradient 85.1 mmHg; Base Excess ABG 3.4 mEq/l (+/-2.0); Fractional Inspired Oxygen 35 %; HCO3 ABG 29.2 mEq/l (22.0-26.0); Oxygen Saturation ABG 97.7 % (95.0-100.0); Oxyhemoglobin 96.6 % THb (90.0-100.0); PCO2 ABG 50.1 mmHg (35.0-45.0); PO2 ABG 106.2 mmHg (80.0-100.0); PO2 FiO2 Ratio Arterial Blood 3.03 %; Total Hemoglobin 10.9 g/dL (12.0-18.0); pH ABG 7.383 (7.350-7.450)
[2020-09-14 05:17] LABS: Device NON-INVASIVE VENT; Modified Allen's Test Pass; Non-Invasive Inspiratory Pressure 20 CMH2O; Non-Invasive Vent Rate 4 /MIN; Site Drawn RIGHT RADIAL
[2020-09-14 05:18] LABS: Non-Invasive Expiratory Pressure 16 CMH2O
[2020-09-14] MEDS: CLINDAMYCIN 600 MG/D5W 50 ML 600 MG/50 ML PIGGYBACK 100 MG IVPB ×3 (05:59→21:40)
[2020-09-14] MEDS: HEPARIN SODIUM 5,000 UNITS/ML VIAL 5000 UNITS SUB-Q ×3 (05:59→21:40)
[2020-09-14 07:20] LABS: Basophils Percent Auto 0.3 % (0.2-1.2); Eosinophils Absolute Auto 0.6 K/mm3 (0-0.3); Eosinophils Percent Auto 5.8 % (0-4.4); Hematocrit 32.1 % (42.0-52.0); Hemoglobin 9.5 g/dL (14.0-18.0); Immature Granulocyte Absolute 0.09 K/mm3 (0.00-0.031); Immature Granulocyte Percent A 0.9 % (0-0.5); Lymphocytes Absolute Auto 1.35 K/mm3 (0.9-3.2); Lymphocytes Percent Auto 13.1 % (18.3-44.2); Mean Corpuscular HGB Conc 29.6 g/dl (32-36); Mean Corpuscular Hemoglobin 27.8 pg (26-34); Mean Corpuscular Volume 93.9 fl (80-100); Mean Platelet Volume 12.8 fl (7.4-10.4); Monocytes Absolute Auto 1.2 K/mm3 (0.1-0.6); Neutrophils Percent Auto 67.9 % (45.5-73.1); Nucleated Red Blood Cells Perc 0.2 % (0.0-0.2); Platelet Count Result 112 k/mm3 (150-375); Red Blood Count 3.42 M/mm3 (4.6-6.20); Red Cell Distribution Width 15.7 % (11.5-14.5); White Blood Count 10.3 K/mm3 (4.5-10.0)
[2020-09-14 07:38] LABS: Alanine Aminotransferase 26 U/L (4-50); Albumin Level 3.2 g/dL (3.5-5.1); Alkaline Phosphatase 94 U/L (38-126); Anion Gap 10 mmol/L (8-16); Aspartate Amino Transferase 60 U/L (17-59); Bilirubin,Total 0.7 mg/dL (0.2-1.3); Calcium 7.7 mg/dL (8.4-10.2); Carbon Dioxide 29 mmol/L (22-30); Chloride 95 mmol/L (98-107); Creatine Kinase 682 U/L (55-170); Estimated CRCL calculation 25 ml/min; Estimated Glomerular Filt Rate 11; Glucose 141 mg/dL (75-110); Magnesium 2.3 mg/dL (1.6-2.3); Phosphorus 7.7 mg/dL (2.5-4.5); Potassium 4.7 mmol/L (3.4-5.0); Sodium 134 mmol/L (137-145)
[2020-09-14 07:45] LABS: Blood Urea Nitrogen 127 mg/dL (9-20)
[2020-09-14 08:44] LABS: Glucose Point of Care 136 mg/dl (65-105)
[2020-09-14] MEDS: IPRATROPIUM BR 0.02% INH SOLN 0.5 MG/2.5 ML VIAL INHALATION (08:59)
[2020-09-14] MEDS: ALBUTEROL SULFATE NEB 2.5 MG/0.5 ML INH INHALATION (08:59)
[2020-09-14] MEDS: INSULIN GLARGINE (*BKC) 100 UNITS/ML 20 UNITS SUB-Q ×2 (09:52→17:39)
[2020-09-14] MEDS: METOPROLOL SUCCINATE EXT REL 25 MG TABCR PO (09:53)
[2020-09-14] MEDS: LORATADINE 10 MG TABLET PO (09:54)
[2020-09-14] MEDS: GABAPENTIN 300 MG CAPSULE PO ×3 (09:54→17:39)
[2020-09-14] MEDS: POLYSACCHARIDE IRON COMPLEX 150 MG CAPSULE PO (09:54)
--- NOTE | 2020-09-14 10:20 | PM.PNPUL ---
Progress Note: A&P Assessment and Plan (1) Obesity hypoventilation syndrome: Code(s): E66.2 - Morbid (severe) obesity with alveolar hypoventilation Status: Acute Assessment and Plan: Patient with obesity hypoventilation on BiPAP 20/16 with 4 L bleed in per sleep study on 05/26/20 and a history of restrictive ventilatory abnormality with a total lung capacity of 66% and no evidence of obstruction. I do not believe the patient has COPD or any reactive airways disease. his most recent blood gas on high-flow nasal cannula oxygen is 7.31/59/65. 09/10 I have ordered the patient to be placed on his BiPAP 20/16 with 80% FiO2 which were the optimal pressures on his most recent sleep study of 05/26/2020. 09/11 patient tolerated BiPAP 20/16 is down to 60% FiO2 and he said that he slept well with this setting. Will continue nocturnal BiPAP. 09/12 Patient wore BiPAP 20/16 at 40% overnight. Continue, tolerating well. 09/13 Continue BiPAP 20/16 and will decrease to 35% FIO2. Will check ABG in the morning prior to removal. Will check overnight oximetry. 09/14 Patient wore BiPAP 20/16 at 40% overnight, no issues. Patient had a good blood gas this morning on these settings with a pH of 7.38/50/106. Patient had a good overnight oximetry on these settings with a average saturation 98%, lowest saturation 82%, saturation less than or equal to 88% was 4 minutes or 1% of the monitored time. Patient states that the BiPAP is working well. He has no hisotry of COPD or asthma and I will DC bronchodilators. Continue BiPAP 20/16 with 4 L bleed in when naps and sleeps on discharge. Follow up in pulmonary clinic at previously scheduled visit 12/11 at 13:00. Will sign off, call with any questions (2) Chronic respiratory failure with hypoxia and hypercapnia: Code(s): J96.11 - Chronic respiratory failure with hypoxia; J96.12 - Chronic respiratory failure with hypercapnia Status: Acute Assessment and Plan: patient had a home O2 assessment 06/12 with resting room air oxygen saturation 96%. Exercise on room air saturations were 85%, exercise on 1 L saturations 86%, exercise on 2 L saturations 87%, exercise on 3 L nasal cannula saturations 90%. Currently the patient is requiring much more oxygen in the etiology of this includes sepsis from his cellulitis, aspiration and or fluid overload. he had no pneumonia complaints prior to this presentation. Currently he is on Zosyn and vancomycin which should be adequate coverage for cellulitis and or aspiration pneumonia -pneumonitis. Patient was given IV Lasix this morning. Patient is currently on Xarelto for prior DVTs. I will obtain lower extremity Dopplers to exclude DVT at this time which were negative. Worsening renal failure and now with hyperkalemia. Left lower leg cellulitis without evidence of necrotizing fasciitis or an abscess by CT scan. On vanco, cefepime and clinda for now. 09/10 On high flow 60L and 70% with sats 92%. 09/11 on high flow 50 L and 55% with sats 96% 09/12 Patient is currently off BiPAP on 4 L nasal cannula with saturations 91%. 09/13 On 4 L NC with sats 91%, continue 09/14 on 5 L nasal cannula with saturations 93%. Perform home O2 assessment prior to discharge. Subjective Date/time seen: 09/14/20 10:20 Interval history: Patient is a 49-year-old male with morbid obesity, hypoxemia on 2 L nasal cannula oxygen at the residential, Congestive heart failure, DM s/p toe amputations, lower extremity DVTs on Xarelto, and obstructive sleep apnea who was started on BiPAP 20/16 with 4 L bleed in per sleep study on 05/26/20. patient was seen in the Pulmonary Clinic on 09/08/2020 and stated he had a good clinical response to the BiPAP 20/16 with 4 L bleed in. Until recently when he feel the machine was clean by the nursing staff at the residential and he said it was not working since then. Patient had no evidence of COPD on his CT scan of the chest 05/15/2019 and
[2020-09-14 11:28] LABS: Glucose Point of Care 186 mg/dl (65-105)
--- NOTE | 2020-09-14 11:49 | PM.IMPN ---
Progress Note: A&P Assessment and Plan (1) Bilateral cellulitis of lower leg: Code(s): L03.116 - Cellulitis of left lower limb; L03.115 - Cellulitis of right lower limb Status: Acute Assessment and Plan: IV antibiotics coverage, adding cefepime clindamycin and vancomycin, discontinue Rocephin, patient received vancomycin and Zosyn initially that were discontinued Because of renal failure, monitor vital signs, CT noncontrast to the left lower extremity, did not show evidence of necrotizing fasciitis. consult Infectious Disease (2) SHAKIRA (acute kidney injury): Code(s): N17.9 - Acute kidney failure, unspecified Status: Acute Assessment and Plan: Monitor renal function and electrolytes Consult nephrology (3) Pulmonary hypertension: Code(s): I27.20 - Pulmonary hypertension, unspecified Status: Acute Assessment and Plan: Lasix p.r.n. (4) Congestive heart failure: Code(s): I50.9 - Heart failure, unspecified Status: Acute Assessment and Plan: Lasix, beta-emerson, no MARKO-inhibitor in the light of his renal dysfunction (5) Acute and chronic respiratory failure with hypoxia: Code(s): J96.21 - Acute and chronic respiratory failure with hypoxia Status: Acute Assessment and Plan: Wean patient off oxygen as tolerated Treat CHF and COPD (6) COPD (chronic obstructive pulmonary disease): Code(s): J44.9 - Chronic obstructive pulmonary disease, unspecified Status: Acute Assessment and Plan: Bronchodilators Steroids Pulmonary consult (7) 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: Code(s): I82.5Y3 - Chronic embolism and thrombosis of unspecified deep veins of proximal lower extremity, bilateral Status: Acute Assessment and Plan: Patient on Xarelto (8) Cellulitis: Code(s): L03.90 - Cellulitis, unspecified Status: Acute Assessment and Plan: IV antibiotics (9) Rhabdomyolysis: Code(s): M62.82 - Rhabdomyolysis Status: Acute Assessment and Plan: keep patient well hydrated, monitor CK level, and renal function Subjective Date/time seen: 09/14/20 11:49 Interval history: patient seems more comfortable and more alert today, still complain of left lower extremity redness swelling and discomfort that seems to be improving gradually. Exam Const: General: cooperative and no acute distress HENMT: Head: normal to inspection Eyes: General: appearance normal, both eyes and all related structures Neck: Neck: normal visual inspection Chest: Chest palpation & inspection: normal inspection of the chest Resp: Effort & Inspection: normal respiratory effort Cardio: Jugular venous distension: no JVD Rate: regular rate GI: Inspection: normal to inspection and non-distended Extrem: Other: Redness and swelling to the left lower extremity, worsening gradually comparing to yesterday, signs of purulent secretion at posterior and lateral aspect of the left leg, extension of redness up to the left thigh, significant tenderness. Objective Data Vital Signs Vital Signs: Vital Signs - 24 hr 09/13/20 12:00 09/13/20 14:00 09/13/20 14:11 Temperature Pulse Rate 81 78 78 Respiratory Rate 17 18 Blood Pressure Pulse Oximetry 94 100 09/13/20 15:58 09/13/20 16:00 09/13/20 17:00 Temperature 97.6 F Pulse Rate 80 81 77 Respiratory Rate 20 26 H Blood Pressure 133/71 Pulse Oximetry 99 94 100 09/13/20 18:00 09/13/20 19:46 09/13/20 20:00 Temperature 97.9 F Pulse Rate 84 84 84 Respiratory Rate 24 H Blood Pressure 124/68 Pulse Oximetry 94 94 09/13/20 21:30 09/13/20 21:33 09/13/20 21:40 Temperature Pulse Rate 84 83 Respiratory Rate 18 18 Blood Pressure Pulse Oximetry 94 09/13/20 22:00 09/13/20 22:50 09/13/20 22:53 Temperature Pulse Rate 88 83 Respiratory Rate 20 Blood Pressure Pulse Oxime
--- NOTE | 2020-09-14 14:17 | P.PNNP_ITS ---
Progress Note: A&P Assessment and Plan (1) SHAKIRA (acute kidney injury): Code(s): N17.9 - Acute kidney failure, unspecified Status: Acute Assessment and Plan: * multifactorial: - infection (cellulitis +/- aspiration pneumonia) - insensible losses (fevers) - fluctuating hemodynamics - hypoxia - necessity of diuretic therapy (on hold currently) * renal ultrasound normal * urine lytes suggest pre-renal azotemia and urine eosinophis negative * high BUN related to catabolic state?? * follow trend of repeat labs and urine output * remains at high risk for requiring renal replacement therapy/dialysis (he has required dialysis in the past) (2) Stage 3a chronic kidney disease: Code(s): N18.31 - Chronic kidney disease, stage 3a Status: Chronic Assessment and Plan: * baseline creatinine runs ~ 1.3 - 1.6mg/dl * presumably due to HTN and diabetes along with LEONIDAS (3) Hyperkalemia: Code(s): E87.5 - Hyperkalemia Status: Acute Assessment and Plan: * doing better * due to lower extremity wounds(?) versus just his SHAKIRA/ARF(?) * received medical management x 2 with improvement * follow trend (4) Acute and chronic respiratory failure with hypoxia: Code(s): J96.21 - Acute and chronic respiratory failure with hypoxia Status: Acute Assessment and Plan: * due to combination of LEONIDAS, OHS, CHF, and possibly aspiration pneumonia * requiring high oxygen demands but seems to be improving * Pulmonary recommendations noted (5) Cellulitis of both lower extremities: Code(s): L03.115 - Cellulitis of right lower limb; L03.116 - Cellulitis of left lower limb Status: Acute Assessment and Plan: * true cellulitis versus chronic venous stasis changes versus combination of both * imaging studies noted * on broad spectrum antibiotics (6) CHF (congestive heart failure): Qualifiers: Heart failure chronicity: unspecified Heart failure type: unspecified Qualified Code(s): I50.9 - Heart failure, unspecified Code(s): I50.9 - Heart failure, unspecified Status: Acute Assessment and Plan: * as noted by admission imaging * IV lasix on hold * follow I/Os * Cardiology following (7) Diabetes: Code(s): E11.9 - Type 2 diabetes mellitus without complications Status: Acute Assessment and Plan: * follow accuchecks * on Lantus and SSI Will continue to follow Subjective Date/time seen: 09/14/20 14:17 In spite of rising BUN and elevated creatinine, appears to be doing reasonably well -- tolerating BiPAP therapy with improvement in his respiratory status in general although still has issues with dyspnea on exertion; still making urine even with diuretics on hold; no acute distress voiced. Exam Narrative: Exam Narrative: General: large male in NAD Heart: normal S1 and S2; no rub Lungs: coarse with decreased breath sounds at bases Abdomen: soft, nontender, nondistended, positive bowel sounds Extremities: no cyanosis or clubbing; 2+ edema Skin: bilateral erythema on top of chronic thickened skin changes (L>R) Objective Data Vital Signs Vital Signs: Vital Signs Temp Pulse Resp BP Pulse Ox 09/14/20 14:00 88 09/14/20 12:00 83 94 09/14/20 11:30 36.7 C 83 20 131/76 94 09/14/20
--- NOTE | 2020-09-14 14:17 | PM.PNNEP ---
Progress Note: A&P Assessment and Plan (1) SHAKIRA (acute kidney injury): Code(s): N17.9 - Acute kidney failure, unspecified Status: Acute Assessment and Plan: multifactorial: - infection (cellulitis +/- aspiration pneumonia) - insensible losses (fevers) - fluctuating hemodynamics - hypoxia - necessity of diuretic therapy (on hold currently) renal ultrasound normal urine lytes suggest pre-renal azotemia and urine eosinophis negative high BUN related to catabolic state?? follow trend of repeat labs and urine output remains at high risk for requiring renal replacement therapy/dialysis (he has required dialysis in the past) (2) Stage 3a chronic kidney disease: Code(s): N18.31 - Chronic kidney disease, stage 3a Status: Chronic Assessment and Plan: baseline creatinine runs ~ 1.3 - 1.6mg/dl presumably due to HTN and diabetes along with LEONIDAS (3) Hyperkalemia: Code(s): E87.5 - Hyperkalemia Status: Acute Assessment and Plan: doing better due to lower extremity wounds(?) versus just his SHAKIRA/ARF(?) received medical management x 2 with improvement follow trend (4) Acute and chronic respiratory failure with hypoxia: Code(s): J96.21 - Acute and chronic respiratory failure with hypoxia Status: Acute Assessment and Plan: due to combination of LEONIDAS, OHS, CHF, and possibly aspiration pneumonia requiring high oxygen demands but seems to be improving Pulmonary recommendations noted (5) Cellulitis of both lower extremities: Code(s): L03.115 - Cellulitis of right lower limb; L03.116 - Cellulitis of left lower limb Status: Acute Assessment and Plan: true cellulitis versus chronic venous stasis changes versus combination of both imaging studies noted on broad spectrum antibiotics (6) CHF (congestive heart failure): Qualifiers: Heart failure chronicity: unspecified Heart failure type: unspecified Qualified Code(s): I50.9 - Heart failure, unspecified Code(s): I50.9 - Heart failure, unspecified Status: Acute Assessment and Plan: as noted by admission imaging IV lasix on hold follow I/Os Cardiology following (7) Diabetes: Code(s): E11.9 - Type 2 diabetes mellitus without complications Status: Acute Assessment and Plan: follow accuchecks on Lantus and SSI Will continue to follow Subjective Date/time seen: 09/14/20 14:17 In spite of rising BUN and elevated creatinine, appears to be doing reasonably well -- tolerating BiPAP therapy with improvement in his respiratory status in general although still has issues with dyspnea on exertion; still making urine even with diuretics on hold; no acute distress voiced. Exam Narrative: Exam Narrative: General: large male in NAD Heart: normal S1 and S2; no rub Lungs: coarse with decreased breath sounds at bases Abdomen: soft, nontender, nondistended, positive bowel sounds Extremities: no cyanosis or clubbing; 2+ edema Skin: bilateral erythema on top of chronic thickened skin changes (L>R) Objective Data Vital Signs Vital Signs: Vital Signs Temp Pulse Resp BP Pulse Ox 09/14/20 14:00 88 09/14/20 12:00 83 94 09/14/20 11:30 36.7 C 83 20 131/76 94 09/14/20 10:00 88 09/14/20 09:53 86 09/14/20 09:10 82 20 09/14/20 09:00 80 20 09/14/20 08:59 93 09/14/20 08:00 75 94 09/14/20 07:55 36.6 C 75 14 139/82 96 09/14/20 06:00 77 09/14/20 05:14 75 15 97 09/14/20 04:00 37.0 C 75 14 153/83 H 96 09/14/20 02:00 77 23 H 94 09/14/20 00:00 84 92 09/13/20 23:35 36.4 C L 86 20 125/63 92 09/13/20 22:53 83 20 96 09/13/20 22:50 96 09/13/20 22:00 88 09/13/20 21:40 83 18 09/13/20 21:33 94 09/13/20 21:30 84 18 09/13/20 20:0
--- NOTE | 2020-09-14 15:16 | PM.PNCARD ---
Progress Note: A&P Assessment and Plan (1) Congestive heart failure: Code(s): I50.9 - Heart failure, unspecified Status: Acute Assessment and Plan: He has grade II diastolic dysfunction demonstrated by echocardiogram in February 2020. EF 65-70%. Clinically not significantly decompensated in heart failure. His medical regimen was adjusted to support his diastolic noncompliace - on diltiazem and metoprolol. Monitor volume status closely. Hemodialysis per Nephrology which is currently on hold for now BUN inc to 127 Cr 5.4. Suspect he will require HD very soon. 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 Patient must receive DVT prophylaxis or re-initiate systemic anticoagulation. Given lower extremity wounds SCDs unlikely to be tolerated. Heparin 5000 units subcutaneous q.8 hours at minimum But must be cautious due to the development of thrombocytopenia. (3) Thrombocytopenia: Code(s): D69.6 - Thrombocytopenia, unspecified Status: Acute Assessment and Plan: Stable. Monitor platelet count and bleeding closely. H&H stable. DVT prophylaxis while he is off A/C. If no plans for HD or access resume A/C. Eliquis 5mg BID most likely. I would appreciate Nephrology input in this regard. If platelet counts continued to drop will need to discontinue heparin. - Eliquis may be a better option over Xarelto due to renal failure and CrCl 24 GFR 10. (4) Essential hypertension: Code(s): I10 - Essential (primary) hypertension Status: Acute Assessment and Plan: Continue to monitor, blood pressure reasonably controlled at this time. (5) Obesity hypoventilation syndrome: Code(s): E66.2 - Morbid (severe) obesity with alveolar hypoventilation Status: Acute Assessment and Plan: On BiPAP at [facility] and currently on hig flow O2. Pulm following. Subjective Date/time seen: Date of Service: 09/14/20 15:16 Interval history: Follow-up visit in this 49-year-old man with: Significant diastolic noncompliance having been switched to regimen of metoprolol and diltiazem. No other active cardiac problems. Unfortunate patient is also very ill with acute renal failure and appears to have concerning so being treated with aggressive antibiotics. Nephrology consult being placed today as the patient has worsening renal failure and is now significantly hyperkalemic. Feels about the same no new issues. I added Heparin 5000U SC q8h for DVT dosing last night, no CP, remains 4L NC O2, +ROBERTS with any activity, ochoa BiPAP Review of Systems Review of Systems: All systems reviewed & are unremarkable except as noted in HPI and below Constitutional: Constitutional: Reports as per HPI, Reports no additional constitutional complaints, Reports fatigue and Reports weakness Eyes: Eyes: Reports as per HPI and Reports no additional eye complaints ENT: Reports system reviewed and no additional complaints, except as documented and Reports as per HPI Cardiovascular: Cardiovascular: Reports as per HPI, Reports no additional cardiovascular complaints, Denies chest pain, Denies palpitations, Reports dyspnea and Reports dyspnea on exertion Respiratory: Respiratory: Reports as per HPI, Reports dyspnea and Reports dyspnea on exertion Gastrointestinal: Gastrointestinal: Reports as per HPI, Reports no additional gastrointestinal complaints and Denies abdominal pain Genitourinary: Genitourinary: Reports as per HPI Musculoskeletal: Musculoskeletal: Reports as per HPI and Reports myalgias Integumentary/Breasts: Skin/Breast: Reports system reviewed and no additional complaints, except as docu and Reports as per HPI Neurologic: Reports system
[2020-09-14 16:16] LABS: Glucose Point of Care 188 mg/dl (65-105)
--- NOTE | 2020-09-14 18:28 | WPDCN ---
Assessment and Plan Additional Plan assessment and plan 1. Left lower extremity cellulitis with lymphangitis. Extensive induration and erythema extending from the dorsum of her aspect of the foot to the mid aspect of the thigh. Patient also has exfoliative dermatitis. Differential diagnosis includes staphylococcal infection versus streptococcal infection. Patient is currently on cefepime, clindamycin and vancomycin Day 2. Previously was on a combination of Zosyn and vancomycin which was switched due to acute renal failure. At this point I will stop vancomycin and transition to daptomycin. Continue cefepime and clindamycin for now. Blood cultures have been negative and white count is trending down. 2. Acute renal failure currently being followed by Nephrology. Creatinine for about 5. Avoid nephrotoxic agent. 3. Type 2 diabetes recommend tighter glycemic control. 4. Obesity 5. Date of service 09/14/2020 HPI Data of Consult Date/Time: 09/14/20 18:28 Requesting Physician: Cristofer Marcus MD Primary Care Provider: Brennan Whitmore, Consult Narrative Narrative: Ulices Canas is a 49 year old male with significant past medical history for, diabetes, diabetic foot infection requiring digital amputation, obesity, COPD as well as congestive heart failure presented to [facility] on 09/09/2020 after he started having nausea and vomiting. The patient also stated that he had developed left lower extremity erythema. Patient also had developed nausea and vomiting. I was requested to see him due to worsening of lower extremity edema and erythema. Patient has also developed exfoliation of skin around the kulkarni area. He denies any pain. Denies any recent history of trauma. 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 Chronic obstructive pulmonary disease Congestive heart failure Current use of prison anticoagulation Diabetic peripheral neuropathy Diastolic dysfunction Essential hypertension Gastroesophageal reflux disease History of cellulitis Right lower extremity Insulin dependent diabetes mellitus Morbid obesity Obstructive sleep apnea Osteoarthritis Surgical History Surgical History Amputation of one or more toes Amputation of several toes on both feet. Second toe on the right and 2nd 3rd on the left Family History Family History Father Diabetes mellitus Cerebrovascular accident Mother DVT (deep venous thrombosis) Cerebrovascular accident Sibling Diabetes mellitus Cerebrovascular accident Social History Social History Social History: The patient has been a resident at [facility] for about a year. He smoked remotely as a young man and quit in 1990. No alcohol or illicit substance use. He is not and has no children. All of his immediate family members are . He is not certain who he would want to name as his surrogate decision maker. At this time he is considered to be a full code. Smoking status: Never smoker Tobacco type: cigarettes Smoking end date: 04/04/90 Alcohol intake: never Substance use: never Gender identity (if verbalized by the patient): Male Sexual Orientation (if Verbalized by the Patient): Straight or Heterosexual Spiritual care concerns: No Agree to blood products: Yes Meds Home Medicat
[2020-09-14] MEDS: DAPTOmycin 500 MG in SODIUM CHLORIDE 0.9% IV 50 ML 100 MG IVPB (19:50)
[2020-09-14 20:35] LABS: Glucose Point of Care 193 mg/dl (65-105)
[2020-09-14 23:16] LABS: Myoglobin, Urine 95 mcg/L (<28)
[2020-09-15] VITALS (23 sets, daily range): BP systolic 134–154; BP diastolic 61–78; PULSE 67–88; RESP 15–20; TEMP 35.7–36.6; O2SAT 94–98
[2020-09-15] MEDS: CLINDAMYCIN 600 MG/D5W 50 ML 600 MG/50 ML PIGGYBACK 100 MG IVPB ×3 (05:26→21:01)
[2020-09-15] MEDS: HEPARIN SODIUM 5,000 UNITS/ML VIAL 5000 UNITS SUB-Q ×3 (05:28→21:02)
[2020-09-15 06:24] LABS: Basophils Percent Auto 0.3 % (0.2-1.2); Eosinophils Absolute Auto 0.8 K/mm3 (0-0.3); Eosinophils Percent Auto 8.1 % (0-4.4); Hematocrit 30.8 % (42.0-52.0); Hemoglobin 9.7 g/dL (14.0-18.0); Immature Granulocyte Absolute 0.25 K/mm3 (0.00-0.031); Immature Granulocyte Percent A 2.5 % (0-0.5); Lymphocytes Absolute Auto 1.98 K/mm3 (0.9-3.2); Lymphocytes Percent Auto 19.6 % (18.3-44.2); Mean Corpuscular HGB Conc 31.5 g/dl (32-36); Mean Corpuscular Hemoglobin 28.2 pg (26-34); Mean Corpuscular Volume 89.5 fl (80-100); Mean Platelet Volume 12.3 fl (7.4-10.4); Monocytes Absolute Auto 1.2 K/mm3 (0.1-0.6); Monocytes Percent Auto 12.3 % (2.6-8.5); Neutrophils Absolute Auto 5.8 K/mm3 (1.3-6.7); Neutrophils Percent Auto 57.2 % (45.5-73.1); Platelet Count Result 148 k/mm3 (150-375); Red Blood Count 3.44 M/mm3 (4.6-6.20); Red Cell Distribution Width 15.2 % (11.5-14.5); White Blood Count 10.1 K/mm3 (4.5-10.0)
[2020-09-15 06:51] LABS: Albumin Level 3.2 g/dL (3.5-5.1); Anion Gap 10 mmol/L (8-16); Calcium 7.7 mg/dL (8.4-10.2); Carbon Dioxide 29 mmol/L (22-30); Chloride 95 mmol/L (98-107); Estimated CRCL calculation 27 ml/min; Estimated Glomerular Filt Rate 12; Glucose 169 mg/dL (75-110); Phosphorus 8.4 mg/dL (2.5-4.5); Potassium 4.4 mmol/L (3.4-5.0); Sodium 134 mmol/L (137-145)
[2020-09-15 07:09] LABS: Blood Urea Nitrogen 139 mg/dL (9-20)
[2020-09-15 08:00] LABS: Glucose Point of Care 179 mg/dl (65-105)
[2020-09-15] MEDS: INSULIN GLARGINE (*BKC) 100 UNITS/ML 20 UNITS SUB-Q ×2 (09:02→17:37)
[2020-09-15] MEDS: GABAPENTIN 300 MG CAPSULE PO ×3 (09:02→17:37)
[2020-09-15] MEDS: METOPROLOL SUCCINATE EXT REL 25 MG TABCR PO (09:03)
[2020-09-15] MEDS: LORATADINE 10 MG TABLET PO (09:03)
[2020-09-15] MEDS: POLYSACCHARIDE IRON COMPLEX 150 MG CAPSULE PO (09:03)
--- NOTE | 2020-09-15 10:30 | PM.IMPN ---
Progress Note: A&P Assessment and Plan (1) Bilateral cellulitis of lower leg: Code(s): L03.116 - Cellulitis of left lower limb; L03.115 - Cellulitis of right lower limb Status: Acute Assessment and Plan: IV antibiotics , CT noncontrast to the left lower extremity, did not show evidence of necrotizing fasciitis. consult Infectious Disease (2) SHAKIRA (acute kidney injury): Code(s): N17.9 - Acute kidney failure, unspecified Status: Acute Assessment and Plan: Monitor renal function and electrolytes Consult nephrology (3) Pulmonary hypertension: Code(s): I27.20 - Pulmonary hypertension, unspecified Status: Acute Assessment and Plan: Lasix p.r.n. (4) Congestive heart failure: Code(s): I50.9 - Heart failure, unspecified Status: Acute Assessment and Plan: Lasix, beta-emerson, MARKO-inhibitor on hold in the light of his renal dysfunction (5) Acute and chronic respiratory failure with hypoxia: Code(s): J96.21 - Acute and chronic respiratory failure with hypoxia Status: Acute Assessment and Plan: Wean patient off oxygen as tolerated Treat CHF and COPD (6) COPD (chronic obstructive pulmonary disease): Code(s): J44.9 - Chronic obstructive pulmonary disease, unspecified Status: Acute Assessment and Plan: Bronchodilators Steroids Pulmonary consult (7) 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: Code(s): I82.5Y3 - Chronic embolism and thrombosis of unspecified deep veins of proximal lower extremity, bilateral Status: Acute Assessment and Plan: Patient on Xarelto (8) Cellulitis: Code(s): L03.90 - Cellulitis, unspecified Status: Acute Assessment and Plan: IV antibiotics (9) Rhabdomyolysis: Code(s): M62.82 - Rhabdomyolysis Status: Acute Assessment and Plan: keep patient well hydrated, monitor CK level, and renal function Subjective Date/time seen: 09/15/20 10:30 Interval history: patient seems more comfortable and more alert today, still complain of left lower extremity redness swelling and discomfort that seems to be improving gradually. Exam Const: General: cooperative and no acute distress HENMT: Head: normal to inspection Eyes: General: appearance normal, both eyes and all related structures Neck: Neck: normal visual inspection Chest: Chest palpation & inspection: normal inspection of the chest Resp: Effort & Inspection: normal respiratory effort Cardio: Jugular venous distension: no JVD Rate: regular rate GI: Inspection: normal to inspection and non-distended Extrem: Other: Redness and swelling to the left lower extremity, worsening gradually comparing to yesterday, signs of purulent secretion at posterior and lateral aspect of the left leg, extension of redness up to the left thigh, significant tenderness. Objective Data Vital Signs Vital Signs: Vital Signs - 24 hr 09/14/20 11:30 09/14/20 12:00 09/14/20 14:00 Temperature 98.1 F Pulse Rate 83 83 88 Respiratory Rate 20 Blood Pressure 131/76 Pulse Oximetry 94 94 09/14/20 14:29 09/14/20 16:00 09/14/20 18:00 Temperature 97.6 F Pulse Rate 81 79 Respiratory Rate 17 Blood Pressure 145/80 H Pulse Oximetry 94 95 09/14/20 19:58 09/14/20 20:00 09/14/20 21:55 Temperature 97.7 F Pulse Rate 80 78 Respiratory Rate 17 Blood Pressure 138/69 Pulse Oximetry 94 94 09/14/20 23:57 09/15/20 00:00 09/15/20 01:43 Temperature 97.8 F Pulse Rate 75 75 75 Respiratory Rate 15 17 Blood Pressure 144/61 H Pulse Oximetry 95 94 09/15/20 03:48 09/15/20 04:00 09/15/20 06:00 Temperature 97.7 F Pulse Rate 74 72 Respiratory Rate 17 Blood Pressure 134/68 Pulse Oximetry 97 96 09/15/20 08:00 09/15/20 08:23 09/15/20 08:25 Temperature 97.1 F L Pulse Rate 72 Respiratory Rate 16 Blood Pressure 154/78 H Pulse O
--- NOTE | 2020-09-15 11:41 | PM.PNCARD ---
Progress Note: A&P Additional Plan 49-year-old man with: Diastolic noncompliance placed him on medical therapy including diltiazem and metoprolol. He is stable with this. There are no active cardiac issues at this time. His principal reasons for hospital care are his lower extremity cellulitis and severe renal insufficiency. Agree with the assessment of others that he is very close to needing renal replacement therapy. Would imagine that plans regarding dialysis access are on the horizon. As stated above Xarelto discontinued last week in anticipation of this. Norman Nunez MD [facility] Subjective Date/time seen: Date of service:09/15/20 11:41 Interval history: Follow-up visit in this 49-year-old man with: Significant diastolic noncompliance having been switched to regimen of metoprolol and diltiazem. No other active cardiac problems. Unfortunate patient is also very ill with acute renal failure and appears to have concerning so being treated with aggressive antibiotics. Nephrology consult being placed today as the patient has worsening renal failure and is now significantly hyperkalemic. Feels about the same no new issues. I added Heparin 5000U SC q8h for DVT dosing last night, no CP, remains 4L NC O2, +ROBERTS with any activity, ochoa BiPAP Date of service: Patient is asymptomatic says he feels quite well today is watching television when I entered the room to see him. Cellulitis in the lower extremity looks basically on improved to me. Infectious disease customer service and sales consultant notes are reviewed. No cardiovascular issues of note. We were asked to see this gentleman to recommend medical treatment of diastolic noncompliance which was done last week. spoke to the patient at some length about his renal insufficiency. Exam Const: Other: Massively obese unfortunate gentleman seated in the chair watching television no distress HENMT: Mouth: Yes moist mucous membranes Eyes: Sclera: sclerae normal Pupils: Equal, round and reactive pupils present Neck: Neck: supple Other: impossible to assess venous distention given his body habitus. Resp: Effort & Inspection: normal respiratory effort Auscultation: clear to auscultation bilaterally Cardio: Rate: regular rate Rhythm: regular rhythm Other: PMI is not palpable GI: GI Palp: Yes Soft to palpation Auscultation: normal bowel sounds Other: massively obese otherwise benign Skin: General skin exam: normal color Neuro: Cognition (Neuro): normal cognition Objective Data Vital Signs Vital Signs: Vital Signs - 24 hr 09/14/20 12:00 09/14/20 14:00 09/14/20 14:29 Temperature Pulse Rate 83 88 Respiratory Rate Blood Pressure Pulse Oximetry 94 94 09/14/20 16:00 09/14/20 18:00 09/14/20 19:58 Temperature 36.4 C Pulse Rate 81 79 Respiratory Rate 17 Blood Pressure 145/80 H Pulse Oximetry 95 94 09/14/20 20:00 09/14/20 21:55 09/14/20 23:57 Temperature 36.5 C Pulse Rate 80 78 75 Respiratory Rate 17 15 Blood Pressure 138/69 Pulse Oximetry 94 95 09/15/20 00:00 09/15/20 01:43 09/15/20 03:48 Temperature 36.6 C Pulse Rate 75 75 Respiratory Rate 17 Blood Pressure 144/61 H Pulse Oximetry 94 97 09/15/20 04:00 09/15/20 06:00 09/15/20 08:00 Temperature 36.5 C 36.2 C L Pulse Rate 74 72 72 Respiratory Rate 17 16 Blood Pressure 134/68 154/78 H Pulse Oximetry 96 96 09/15/20 08:23 09/15/20 08:25 09/15/20 09:03 Temperature Pulse Rate 82 Respiratory Rate Blood Pressure Pulse Oximetry 97 95 09/15/20 10:00 Temperature Pulse Rate 82 Respiratory Rate Blood Pressure Pulse Oximetry Intake/Output Intake/Output: Intake & Output 09/12/20 09/13/20 09/14/20 09/15/20 23:59 23:59 23:59 23:59 Intake Total 1770 1340 2850 570 Output Total 817 354 2721 1000 Balance 312 714 3020 -430 Meds/Results Medications: Active Medications Generic Name Dose Route Start Last Admin Trade Name F
[2020-09-15 11:55] LABS: Glucose Point of Care 187 mg/dl (65-105)
--- NOTE | 2020-09-15 15:48 | P.PNNP_ITS ---
Progress Note: A&P Assessment and Plan (1) SHAKIRA (acute kidney injury): Code(s): N17.9 - Acute kidney failure, unspecified Status: Acute Assessment and Plan: * multifactorial: - infection (cellulitis +/- aspiration pneumonia) - insensible losses (fevers) - fluctuating hemodynamics - hypoxia - necessity of diuretic therapy (on hold currently) * renal ultrasound normal * urine lytes suggest pre-renal azotemia and urine eosinophis negative * high BUN related to catabolic state?? * follow trend of repeat labs and urine output * remains at high risk for requiring renal replacement therapy/dialysis (he has required dialysis in the past) (2) Stage 3a chronic kidney disease: Code(s): N18.31 - Chronic kidney disease, stage 3a Status: Chronic Assessment and Plan: * baseline creatinine runs ~ 1.3 - 1.6mg/dl * presumably due to HTN and diabetes along with LEONIDAS (3) Hyperkalemia: Code(s): E87.5 - Hyperkalemia Status: Acute Assessment and Plan: * doing better * due to lower extremity wounds(?) versus just his SHAKIRA/ARF(?) * received medical management x 2 with improvement * follow trend (4) Acute and chronic respiratory failure with hypoxia: Code(s): J96.21 - Acute and chronic respiratory failure with hypoxia Status: Acute Assessment and Plan: * due to combination of LEONIDAS, OHS, CHF, and possibly aspiration pneumonia * requiring high oxygen demands but seems to be improving * Pulmonary recommendations noted (5) Cellulitis of both lower extremities: Code(s): L03.115 - Cellulitis of right lower limb; L03.116 - Cellulitis of left lower limb Status: Acute Assessment and Plan: * true cellulitis versus chronic venous stasis changes versus combination of both * imaging studies noted * on broad spectrum antibiotics (6) CHF (congestive heart failure): Qualifiers: Heart failure chronicity: unspecified Heart failure type: unspecified Qualified Code(s): I50.9 - Heart failure, unspecified Code(s): I50.9 - Heart failure, unspecified Status: Acute Assessment and Plan: * as noted by admission imaging * IV lasix on hold * follow I/Os * Cardiology following (7) Diabetes: Code(s): E11.9 - Type 2 diabetes mellitus without complications Status: Acute Assessment and Plan: * follow accuchecks * on Lantus and SSI Long and extensive discussion (> 20 minutes) with patient regarding his renal dysfunction; creatinine slowly improving and making reasonable urine output put; although his BUN is elevated, he is not uremic so I opt for close observation for now instead of [facility]/dialysis which patient is agreeable to. Will continue to follow Subjective Date/time seen: 09/15/20 15:48 Despite his elevated kidney function tests; he states he feels reasonably well; tolerating BiPAP therapy with stability if not improvement in his respiratory status; continues to make reasonable urine output WITHOUT diuretic therapy; discussed with patient the issues of his renal failure extensively Exam Narrative: Exam Narrative: General: large male in NAD Heart: normal S1 and S2; no rub Lungs: coarse with decreased breath sounds at bases Abdomen: soft, nontender, nondistended, positive bowel sounds Extremities: no cyanosis or clubbing; 2+ edema Skin: bilateral erythema on top of chronic thickened skin changes (L>R) Objec
--- NOTE | 2020-09-15 15:48 | PM.PNNEP ---
Progress Note: A&P Assessment and Plan (1) SHAKIRA (acute kidney injury): Code(s): N17.9 - Acute kidney failure, unspecified Status: Acute Assessment and Plan: multifactorial: - infection (cellulitis +/- aspiration pneumonia) - insensible losses (fevers) - fluctuating hemodynamics - hypoxia - necessity of diuretic therapy (on hold currently) renal ultrasound normal urine lytes suggest pre-renal azotemia and urine eosinophis negative high BUN related to catabolic state?? follow trend of repeat labs and urine output remains at high risk for requiring renal replacement therapy/dialysis (he has required dialysis in the past) (2) Stage 3a chronic kidney disease: Code(s): N18.31 - Chronic kidney disease, stage 3a Status: Chronic Assessment and Plan: baseline creatinine runs ~ 1.3 - 1.6mg/dl presumably due to HTN and diabetes along with LEONIDAS (3) Hyperkalemia: Code(s): E87.5 - Hyperkalemia Status: Acute Assessment and Plan: doing better due to lower extremity wounds(?) versus just his SHAKIRA/ARF(?) received medical management x 2 with improvement follow trend (4) Acute and chronic respiratory failure with hypoxia: Code(s): J96.21 - Acute and chronic respiratory failure with hypoxia Status: Acute Assessment and Plan: due to combination of LEONIDAS, OHS, CHF, and possibly aspiration pneumonia requiring high oxygen demands but seems to be improving Pulmonary recommendations noted (5) Cellulitis of both lower extremities: Code(s): L03.115 - Cellulitis of right lower limb; L03.116 - Cellulitis of left lower limb Status: Acute Assessment and Plan: true cellulitis versus chronic venous stasis changes versus combination of both imaging studies noted on broad spectrum antibiotics (6) CHF (congestive heart failure): Qualifiers: Heart failure chronicity: unspecified Heart failure type: unspecified Qualified Code(s): I50.9 - Heart failure, unspecified Code(s): I50.9 - Heart failure, unspecified Status: Acute Assessment and Plan: as noted by admission imaging IV lasix on hold follow I/Os Cardiology following (7) Diabetes: Code(s): E11.9 - Type 2 diabetes mellitus without complications Status: Acute Assessment and Plan: follow accuchecks on Lantus and SSI Long and extensive discussion (> 20 minutes) with patient regarding his renal dysfunction; creatinine slowly improving and making reasonable urine output put; although his BUN is elevated, he is not uremic so I opt for close observation for now instead of [facility]/dialysis which patient is agreeable to. Will continue to follow Subjective Date/time seen: 09/15/20 15:48 Despite his elevated kidney function tests; he states he feels reasonably well; tolerating BiPAP therapy with stability if not improvement in his respiratory status; continues to make reasonable urine output WITHOUT diuretic therapy; discussed with patient the issues of his renal failure extensively Exam Narrative: Exam Narrative: General: large male in NAD Heart: normal S1 and S2; no rub Lungs: coarse with decreased breath sounds at bases Abdomen: soft, nontender, nondistended, positive bowel sounds Extremities: no cyanosis or clubbing; 2+ edema Skin: bilateral erythema on top of chronic thickened skin changes (L>R) Objective Data Vital Signs Vital Signs: Vital Signs Temp Pulse Resp BP Pulse Ox 09/15/20 15:25 97 09/15/20 13:55 88 09/15/20 12:00 77 09/15/20 11:51 35.7 C L 77 20 153/72 H 98 09/15/20 11:50 96 09/15/20 10:00 82 09/15/20 09:03 82 09/15/20 08:25 95 09/15/20 08:23 97 09/15/20 08:00 36.2 C L 72 16 154/78 H 96 09/15/20 06:00 72 09/15/20 04:00 36.5 C 74 17 134/68 96
[2020-09-15 16:27] LABS: Glucose Point of Care 146 mg/dl (65-105)
[2020-09-15 20:53] LABS: Glucose Point of Care 182 mg/dl (65-105)
[2020-09-16] VITALS (23 sets, daily range): BP systolic 140–162; BP diastolic 64–71; PULSE 66–80; RESP 16–24; TEMP 35.6–36.7; O2SAT 93–100
[2020-09-16] MEDS: CLINDAMYCIN 600 MG/D5W 50 ML 600 MG/50 ML PIGGYBACK 100 MG IVPB ×3 (05:40→21:14)
[2020-09-16] MEDS: HEPARIN SODIUM 5,000 UNITS/ML VIAL 5000 UNITS SUB-Q ×3 (05:40→21:14)
[2020-09-16 05:42] LABS: Albumin Level 3.2 g/dL (3.5-5.1); Anion Gap 12 mmol/L (8-16); Calcium 7.6 mg/dL (8.4-10.2); Carbon Dioxide 28 mmol/L (22-30); Chloride 93 mmol/L (98-107); Creatine Kinase 253 U/L (55-170); Estimated CRCL calculation 29 ml/min; Estimated Glomerular Filt Rate 13; Glucose 155 mg/dL (75-110); Potassium 4.3 mmol/L (3.4-5.0); Sodium 133 mmol/L (137-145)
[2020-09-16 06:03] LABS: Basophils Percent Auto 0.4 % (0.2-1.2); Eosinophils Absolute Auto 0.9 K/mm3 (0-0.3); Eosinophils Percent Auto 9.7 % (0-4.4); Hematocrit 30.4 % (42.0-52.0); Hemoglobin 9.6 g/dL (14.0-18.0); Immature Granulocyte Absolute 0.56 K/mm3 (0.00-0.031); Immature Granulocyte Percent A 5.8 % (0-0.5); Lymphocytes Percent Auto 22.8 % (18.3-44.2); Mean Corpuscular HGB Conc 31.6 g/dl (32-36); Mean Corpuscular Hemoglobin 28.7 pg (26-34); Mean Corpuscular Volume 90.7 fl (80-100); Mean Platelet Volume 12.7 fl (7.4-10.4); Monocytes Absolute Auto 0.9 K/mm3 (0.1-0.6); Monocytes Percent Auto 9.1 % (2.6-8.5); Neutrophils Percent Auto 52.2 % (45.5-73.1); Platelet Count Result 190 k/mm3 (150-375); Red Blood Count 3.35 M/mm3 (4.6-6.20); Red Cell Distribution Width 15.3 % (11.5-14.5); White Blood Count 9.7 K/mm3 (4.5-10.0)
[2020-09-16 08:12] LABS: Glucose Point of Care 145 mg/dl (65-105)
[2020-09-16] MEDS: GABAPENTIN 300 MG CAPSULE PO ×3 (08:41→17:03)
[2020-09-16] MEDS: METOPROLOL SUCCINATE EXT REL 25 MG TABCR PO (08:41)
[2020-09-16] MEDS: INSULIN GLARGINE (*BKC) 100 UNITS/ML 20 UNITS SUB-Q ×2 (08:41→17:03)
[2020-09-16] MEDS: POLYSACCHARIDE IRON COMPLEX 150 MG CAPSULE PO (08:41)
[2020-09-16] MEDS: LORATADINE 10 MG TABLET PO (08:41)
[2020-09-16 08:43] LABS: Blood Urea Nitrogen 150 mg/dL (9-20)
--- NOTE | 2020-09-16 08:46 | PC.NURSE ---
Spoke to Dr Nolan about PICC line placement for IV antibiotics. Ovidio gave the OK to proceed with a PICC and spoke with Dr. Villagran and was told to order a PICC line.
--- NOTE | 2020-09-16 08:56 | PM.PNCARD ---
Progress Note: A&P Assessment and Plan (1) Congestive heart failure: Code(s): I50.9 - Heart failure, unspecified <Opal Shavon HughesSOCORRO jaffe - Last Filed: 09/16/20 10:35> Status: Acute <Opal PickensSOCORRO - Last Filed: 09/16/20 10:35> Assessment and Plan: He has grade II diastolic dysfunction demonstrated by echocardiogram in February 2020. EF 65-70%. Clinically not significantly decompensated in heart failure. His medical regimen was adjusted to support his diastolic noncompliace - on diltiazem and metoprolol. Monitor volume status closely. Nephrology following closely and monitoring need for HD. <SOCORRO Maharaj - Last Filed: 09/16/20 10:35> (2) 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: Code(s): I82.5Y3 - Chronic embolism and thrombosis of unspecified deep veins of proximal lower extremity, bilateral <SOCORRO Maharaj - Last Filed: 09/16/20 10:35> Status: Acute <Opal A. NeliaSOCORRO jaffe - Last Filed: 09/16/20 10:35> Assessment and Plan: Anticoagulation With Xarelto held 09/12 in anticipation for hemodialysis access. Patient must receive DVT prophylaxis or re-initiate systemic anticoagulation. Given lower extremity wounds SCDs unlikely to be tolerated. Heparin 5000 units subcutaneous q.8 hours at minimum But must be cautious due to the development of thrombocytopenia. <SOCORRO Maharaj - Last Filed: 09/16/20 10:35> (3) Thrombocytopenia: Code(s): D69.6 - Thrombocytopenia, unspecified <SOCORRO Maharaj - Last Filed: 09/16/20 10:35> Status: Acute <SOCORRO Maharaj - Last Filed: 09/16/20 10:35> Assessment and Plan: Stable. Monitor platelet count and bleeding closely. H&H stable. DVT prophylaxis while he is off A/C. If no plans for HD or access resume A/C. Eliquis 5mg BID most likely. I would appreciate Nephrology input in this regard. If platelet counts continued to drop will need to discontinue heparin. - Eliquis may be a better option over Xarelto due to renal failure and CrCl 24 GFR 10. <SOCORRO Maharaj - Last Filed: 09/16/20 10:35> (4) Essential hypertension: Code(s): I10 - Essential (primary) hypertension <SOCORRO Maharaj - Last Filed: 09/16/20 10:35> Status: Acute <SOCORRO Maharaj - Last Filed: 09/16/20 10:35> Assessment and Plan: Continue to monitor, blood pressure reasonably controlled at this time. <SOCORRO Maharaj - Last Filed: 09/16/20 10:35> (5) Obesity hypoventilation syndrome: Code(s): E66.2 - Morbid (severe) obesity with alveolar hypoventilation <OSCORRO Maharaj - Last Filed: 09/16/20 10:35> Status: Acute <SOCORRO Maharaj - Last Filed: 09/16/20 10:35> Assessment and Plan: On BiPAP at [facility] and currently on hig flow O2. Pulm following. <SOCORRO Maharaj - Last Filed: 09/16/20 10:35> Additional Plan I personally saw and evaluated the patient. I reviewed Opal Pickens's note and agree with findings and plan of care as documented in the note. <Abdirizak Simpson MD - Last Filed: 10/01/20 15:42> Subjective Date/time seen: 09/16/20 08:56 <SOCORRO Maharaj - Last Filed: 09/16/20 10:35> Interval history: Follow-up visit in this 49-year-old man with: Significant diastolic noncompliance having been switched to regimen of metoprolol and diltiazem. No other active cardiac problems. Unfortunate patient is also very ill with acute renal failure and appears to have concerning so being treated with aggressive antibiotics. Nephrology consult being placed today as the patient has worsening renal failure and is now significantly hyperkalemic. Feels about the same no new issues. I added Heparin 5000U SC q8h for DVT dosing last night, no CP, remains 4L NC O2, +ROBERTS with any activity, ochoa BiPAP Date of service: Patient is asymptomatic says h
[2020-09-16 11:53] LABS: Glucose Point of Care 161 mg/dl (65-105)
--- NOTE | 2020-09-16 12:51 | PM.IMPN ---
Progress Note: A&P Assessment and Plan (1) Bilateral cellulitis of lower leg: Code(s): L03.116 - Cellulitis of left lower limb; L03.115 - Cellulitis of right lower limb Status: Acute Assessment and Plan: IV antibiotics , CT noncontrast to the left lower extremity, did not show evidence of necrotizing fasciitis. consult Infectious Disease Continue with IV antibiotics. Cellulitis slightly better. (2) SHAKIRA (acute kidney injury): Code(s): N17.9 - Acute kidney failure, unspecified Status: Acute Assessment and Plan: Monitor renal function and electrolytes Nephrology Consult noted. (3) Pulmonary hypertension: Code(s): I27.20 - Pulmonary hypertension, unspecified Status: Acute Assessment and Plan: Lasix p.r.n. (4) Congestive heart failure: Code(s): I50.9 - Heart failure, unspecified Status: Acute Assessment and Plan: Lasix, beta-emerson, MARKO-inhibitor on hold in the light of his renal dysfunction (5) Acute and chronic respiratory failure with hypoxia: Code(s): J96.21 - Acute and chronic respiratory failure with hypoxia Status: Acute Assessment and Plan: Wean patient off oxygen as tolerated Treat CHF and COPD (6) COPD (chronic obstructive pulmonary disease): Code(s): J44.9 - Chronic obstructive pulmonary disease, unspecified Status: Acute Assessment and Plan: Bronchodilators Steroids Pulmonary consult (7) 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 (8) Cellulitis: Code(s): L03.90 - Cellulitis, unspecified Status: Acute Assessment and Plan: IV antibiotics (9) Rhabdomyolysis: Code(s): M62.82 - Rhabdomyolysis Status: Acute Assessment and Plan: keep patient well hydrated, monitor CK level, and renal function Additional Plan Will continue current plan of care and treatment. Will continue with IV antibiotics. Monitor labs and culture. If dialysis catheter is not placed will resume Xarelto. Subjective Date/time seen: 09/16/20 12:51 Patient was seen during the morning rounds today. Patient pain in the lower extremity is slightly better. Mild shortness of breath or chest pain. No abdominal pain, no nausea, no vomiting. Mood stable. Interval history: Review of Systems Review of Systems: ROS unobtainable: Yes unobtainable due to mental status ENT: Reports Normal hearing present Neurologic: Reports Normal hearing present Exam Const: General: cooperative, healthy appearing, comfortable, no acute distress, well developed, alert, awake and Physically active Nutritional Appearance: average body habitus and overweight Orientation/consciousness: oriented to person, oriented to place and oriented to time Limitations: no limitations HENMT: Head: normal to inspection, No palpable skull fracture present, normocephalic and atraumatic Ears: hearing grossly normal bilaterally and external ears normal General nose exam: Normal external nose present and Normal nares present Mouth: Yes Normal oral and palatal mucosa present Throat: posterior oropharynx normal Eyes: General: appearance normal, both eyes and all related structures Alignment and Position: alignment normal Periorbital: periorbital findings normal Eyelids: eyelids normal Conjunctivae: conjunctivae normal Sclera: sclerae normal Cornea: corneas normal Pupils: Equal, round and reactive pupils present EOM: EOMs intact bilaterally Neck: Neck: normal visual inspection, full ROM and no lymphadenopathy Thyroid: thyroid normal Carotids: normal carotid upstroke Lymphatic: no lymphadenopathy noted Chest: Chest palpation & inspection: normal inspection of the chest Resp:
[2020-09-16] MEDS: CENTRAL LINE FLUSH 10 ML IV PUSH ×2 (13:08→21:14)
--- NOTE | 2020-09-16 16:03 | PM.PNNEP ---
Progress Note: A&P Assessment and Plan (1) SHAKIRA (acute kidney injury): Code(s): N17.9 - Acute kidney failure, unspecified Status: Acute Assessment and Plan: multifactorial: - infection (cellulitis +/- aspiration pneumonia) - insensible losses (fevers) - fluctuating hemodynamics - hypoxia - necessity of diuretic therapy (on hold currently) renal ultrasound normal urine lytes suggest pre-renal azotemia and urine eosinophis negative high BUN related to catabolic state?? follow trend of repeat labs and urine output - BUN rising but creatinine improving.... remains at high risk for requiring renal replacement therapy/dialysis (he has required dialysis in the past) (2) Stage 3a chronic kidney disease: Code(s): N18.31 - Chronic kidney disease, stage 3a Status: Chronic Assessment and Plan: baseline creatinine runs ~ 1.3 - 1.6mg/dl presumably due to HTN and diabetes along with LEONIDAS (3) Hyperkalemia: Code(s): E87.5 - Hyperkalemia Status: Acute Assessment and Plan: doing better due to lower extremity wounds(?) versus just his SHAKIRA/ARF(?) received medical management x 2 with improvement follow trend (4) Acute and chronic respiratory failure with hypoxia: Code(s): J96.21 - Acute and chronic respiratory failure with hypoxia Status: Acute Assessment and Plan: due to combination of LEONIDAS, OHS, CHF, and possibly aspiration pneumonia requiring high oxygen demands but seems to be improving Pulmonary recommendations noted (5) Cellulitis of both lower extremities: Code(s): L03.115 - Cellulitis of right lower limb; L03.116 - Cellulitis of left lower limb Status: Acute Assessment and Plan: true cellulitis versus chronic venous stasis changes versus combination of both imaging studies noted on broad spectrum antibiotics (6) CHF (congestive heart failure): Qualifiers: Heart failure chronicity: unspecified Heart failure type: unspecified Qualified Code(s): I50.9 - Heart failure, unspecified Code(s): I50.9 - Heart failure, unspecified Status: Acute Assessment and Plan: as noted by admission imaging IV lasix on hold follow I/Os Cardiology following (7) Diabetes: Code(s): E11.9 - Type 2 diabetes mellitus without complications Status: Acute Assessment and Plan: follow accuchecks on Lantus and SSI Will continue to follow Subjective Date/time seen: 09/16/20 16:03 No apparent distress at the time of my visit; has noted some mild shortness of breath with activity at times; no other acute issues to report; no events overnight; tolerating BiPAP reasonably well. Exam Narrative: Exam Narrative: General: large male in NAD Heart: normal S1 and S2; no rub Lungs: coarse with decreased breath sounds at bases Abdomen: soft, nontender, nondistended, positive bowel sounds Extremities: no cyanosis or clubbing; 2+ edema Skin: bilateral erythema on top of chronic thickened skin changes (L>R) Objective Data Vital Signs Vital Signs: Vital Signs Temp Pulse Resp BP Pulse Ox 09/16/20 16:00 75 09/16/20 15:43 74 16 97 09/16/20 13:55 75 09/16/20 12:00 35.8 C L 73 20 153/64 H 97 09/16/20 11:02 78 16 96 09/16/20 10:00 78 09/16/20 08:41 77 09/16/20 08:33 35.7 C L 68 24 H 147/69 H 98 09/16/20 08:00 67 09/16/20 07:41 67 16 99 09/16/20 06:00 70 09/16/20 04:00 36.7 C 70 24 H 142/64 H 93 09/16/20 02:10 69 17 97 09/16/20 02:00 69 09/16/20 00:00 70 97 09/15/20 23:13 36.4 C 67 18 140/70 96 Intake/Output Intake/Output: Intake & Output 09/13/20 09/14/20 09/15/20 09/16/20 23:59 23:59 23:59 23:59 Intake Total 1340 2850 1150 950 Output Total 925 1600 1650 1999 Balance 415 1148 -826 -8440 Meds/
--- NOTE | 2020-09-16 16:03 | P.PNNP_ITS ---
Progress Note: A&P Assessment and Plan (1) SHAKIRA (acute kidney injury): Code(s): N17.9 - Acute kidney failure, unspecified Status: Acute Assessment and Plan: * multifactorial: - infection (cellulitis +/- aspiration pneumonia) - insensible losses (fevers) - fluctuating hemodynamics - hypoxia - necessity of diuretic therapy (on hold currently) * renal ultrasound normal * urine lytes suggest pre-renal azotemia and urine eosinophis negative * high BUN related to catabolic state?? * follow trend of repeat labs and urine output - BUN rising but creatinine improving.... * remains at high risk for requiring renal replacement therapy/dialysis (he has required dialysis in the past) (2) Stage 3a chronic kidney disease: Code(s): N18.31 - Chronic kidney disease, stage 3a Status: Chronic Assessment and Plan: * baseline creatinine runs ~ 1.3 - 1.6mg/dl * presumably due to HTN and diabetes along with LEONIDAS (3) Hyperkalemia: Code(s): E87.5 - Hyperkalemia Status: Acute Assessment and Plan: * doing better * due to lower extremity wounds(?) versus just his SHAKIRA/ARF(?) * received medical management x 2 with improvement * follow trend (4) Acute and chronic respiratory failure with hypoxia: Code(s): J96.21 - Acute and chronic respiratory failure with hypoxia Status: Acute Assessment and Plan: * due to combination of LEONIDAS, OHS, CHF, and possibly aspiration pneumonia * requiring high oxygen demands but seems to be improving * Pulmonary recommendations noted (5) Cellulitis of both lower extremities: Code(s): L03.115 - Cellulitis of right lower limb; L03.116 - Cellulitis of left lower limb Status: Acute Assessment and Plan: * true cellulitis versus chronic venous stasis changes versus combination of both * imaging studies noted * on broad spectrum antibiotics (6) CHF (congestive heart failure): Qualifiers: Heart failure chronicity: unspecified Heart failure type: unspecified Qualified Code(s): I50.9 - Heart failure, unspecified Code(s): I50.9 - Heart failure, unspecified Status: Acute Assessment and Plan: * as noted by admission imaging * IV lasix on hold * follow I/Os * Cardiology following (7) Diabetes: Code(s): E11.9 - Type 2 diabetes mellitus without complications Status: Acute Assessment and Plan: * follow accuchecks * on Lantus and SSI Will continue to follow Subjective Date/time seen: 09/16/20 16:03 No apparent distress at the time of my visit; has noted some mild shortness of breath with activity at times; no other acute issues to report; no events overnight; tolerating BiPAP reasonably well. Exam Narrative: Exam Narrative: General: large male in NAD Heart: normal S1 and S2; no rub Lungs: coarse with decreased breath sounds at bases Abdomen: soft, nontender, nondistended, positive bowel sounds Extremities: no cyanosis or clubbing; 2+ edema Skin: bilateral erythema on top of chronic thickened skin changes (L>R) Objective Data Vital Signs Vital Signs: Vital Signs Temp Pulse Resp BP Pulse Ox 09/16/20 16:00 75 09/16/20 15:43 74 16 97 09/16/20 13:55 75 09/16/20 12:00 35.8 C L 73 20 153/64 H 97 09/16/20 11:02
[2020-09-16 16:24] LABS: Chloride Rand Ur <20 mmol/L (32-290); Creatinine Random Urine 172 mg/dL (20-320)
[2020-09-16 16:53] LABS: Glucose Point of Care 190 mg/dl (65-105)
[2020-09-16] MEDS: DAPTOmycin 500 MG in SODIUM CHLORIDE 0.9% IV 50 ML 100 MG IVPB (19:52)
[2020-09-16 20:33] LABS: Glucose Point of Care 171 mg/dl (65-105)
[2020-09-17] VITALS (15 sets, daily range): BP systolic 133–172; BP diastolic 52–74; PULSE 68–81; RESP 16–24; TEMP 36.5–36.9; O2SAT 93–99; BMI 50.1
[2020-09-17] MEDS: CLINDAMYCIN 600 MG/D5W 50 ML 600 MG/50 ML PIGGYBACK 100 MG IVPB ×3 (05:01→22:29)
[2020-09-17] MEDS: CENTRAL LINE FLUSH 10 ML IV PUSH ×3 (05:02→22:29)
[2020-09-17] MEDS: HEPARIN SODIUM 5,000 UNITS/ML VIAL 5000 UNITS SUB-Q ×3 (05:02→22:29)
[2020-09-17 05:09] LABS: Albumin Level 3.1 g/dL (3.5-5.1); Anion Gap 10 mmol/L (8-16); Calcium 7.4 mg/dL (8.4-10.2); Carbon Dioxide 30 mmol/L (22-30); Chloride 94 mmol/L (98-107); Estimated CRCL calculation 33 ml/min; Estimated Glomerular Filt Rate 16; Glucose 142 mg/dL (75-110); Phosphorus 8.7 mg/dL (2.5-4.5); Potassium 4.5 mmol/L (3.4-5.0); Sodium 134 mmol/L (137-145)
[2020-09-17 05:41] LABS: Blood Urea Nitrogen 148 mg/dL (9-20)
[2020-09-17 07:54] LABS: Glucose Point of Care 134 mg/dl (65-105)
[2020-09-17] MEDS: GABAPENTIN 300 MG CAPSULE PO ×3 (08:29→17:43)
[2020-09-17] MEDS: LORATADINE 10 MG TABLET PO (08:30)
[2020-09-17] MEDS: METOPROLOL SUCCINATE EXT REL 25 MG TABCR PO (08:30)
[2020-09-17] MEDS: POLYSACCHARIDE IRON COMPLEX 150 MG CAPSULE PO (08:30)
--- NOTE | 2020-09-17 10:08 | PM.IMPN ---
Progress Note: A&P Assessment and Plan (1) Bilateral cellulitis of lower leg: Code(s): L03.116 - Cellulitis of left lower limb; L03.115 - Cellulitis of right lower limb Status: Acute Assessment and Plan: IV antibiotics , CT noncontrast to the left lower extremity, did not show evidence of necrotizing fasciitis. consult Infectious Disease Continue with IV antibiotics. Cellulitis slightly better. check culture (2) SHAKIRA (acute kidney injury): Code(s): N17.9 - Acute kidney failure, unspecified Status: Acute Assessment and Plan: Monitor renal function and electrolytes, creatinine is 4.7 today. Nephrology Consult noted. (3) Pulmonary hypertension: Code(s): I27.20 - Pulmonary hypertension, unspecified Status: Acute Assessment and Plan: Lasix p.r.n. (4) Congestive heart failure: Code(s): I50.9 - Heart failure, unspecified Status: Acute Assessment and Plan: Lasix, beta-emerson, MARKO-inhibitor on hold in the light of his renal dysfunction (5) Acute and chronic respiratory failure with hypoxia: Code(s): J96.21 - Acute and chronic respiratory failure with hypoxia Status: Acute Assessment and Plan: Wean patient off oxygen as tolerated Treat CHF and COPD (6) COPD (chronic obstructive pulmonary disease): Code(s): J44.9 - Chronic obstructive pulmonary disease, unspecified Status: Acute Assessment and Plan: Bronchodilators Steroids Pulmonary consult (7) 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 (8) Cellulitis: Code(s): L03.90 - Cellulitis, unspecified Status: Acute Assessment and Plan: IV antibiotics (9) Rhabdomyolysis: Code(s): M62.82 - Rhabdomyolysis Status: Acute Assessment and Plan: keep patient well hydrated, monitor CK level, and renal function Additional Plan Will continue current plan of care and treatment. Will continue with IV antibiotics. Monitor labs and culture. If dialysis catheter is not placed will resume Xarelto. 09/17/2020: creatinine is 4.7 today slightly better than before. Will discuss with Nephrology about the need for dialysis. If dialysis note dated will resume Xarelto. Subjective Date/time seen: 09/17/20 10:08 Patient was seen during the morning rounds today. Patient was using BiPAP and resting comfortably. Patient has mild shortness of breath or chest pain. No abdominal pain, no nausea no vomiting. Mood stable Interval history: Review of Systems Review of Systems: ROS unobtainable: Yes unobtainable due to mental status ENT: Reports Normal hearing present Neurologic: Reports Normal hearing present Exam Const: General: cooperative, healthy appearing, comfortable, no acute distress, well developed, alert, awake and Physically active Nutritional Appearance: average body habitus and overweight Orientation/consciousness: oriented to person, oriented to place and oriented to time Limitations: no limitations HENMT: Head: normal to inspection, No palpable skull fracture present, normocephalic and atraumatic Ears: hearing grossly normal bilaterally and external ears normal General nose exam: Normal external nose present and Normal nares present Mouth: Yes Normal oral and palatal mucosa present Throat: posterior oropharynx normal Eyes: General: appearance normal, both eyes and all related structures Alignment and Position: alignment normal Periorbital: periorbital findings normal Eyelids: eyelids normal Conjunctivae: conjunctivae normal Sclera: sclerae normal Cornea: corneas normal Pupils: Equal, round and reactive pupils present EOM: EOMs intact bilaterally Neck: Neck: normal visual inspec
--- NOTE | 2020-09-17 11:33 | PCNSR ---
On 09/17/20, the student, Yamile Sales, provided care and completed [facility] documentation on this patient. I have reviewed the student's documentation and agree with the findings.
[2020-09-17 11:51] LABS: Glucose Point of Care 130 mg/dl (65-105)
--- NOTE | 2020-09-17 11:55 | P.PNNP_ITS ---
Progress Note: A&P Assessment and Plan (1) SHAKIRA (acute kidney injury): Code(s): N17.9 - Acute kidney failure, unspecified Status: Acute Assessment and Plan: * multifactorial: - infection (cellulitis +/- aspiration pneumonia) - insensible losses (fevers) - fluctuating hemodynamics - hypoxia - necessity of diuretic therapy (on hold currently) * renal ultrasound normal * urine lytes suggest pre-renal azotemia and urine eosinophis negative * high BUN related to catabolic state?? * follow trend of repeat labs and urine output - BUN elevated but creatinine improving.... * excellent urine output -- suspect diuretic phase of recovering ATN (2) Stage 3a chronic kidney disease: Code(s): N18.31 - Chronic kidney disease, stage 3a Status: Chronic Assessment and Plan: * baseline creatinine runs ~ 1.3 - 1.6mg/dl * presumably due to HTN and diabetes along with LEONIDAS (3) Hyperkalemia: Code(s): E87.5 - Hyperkalemia Status: Acute Assessment and Plan: * doing better * due to lower extremity wounds(?) versus just his SHAKIRA/ARF(?) * received medical management x 2 with improvement * follow trend (4) Acute and chronic respiratory failure with hypoxia: Code(s): J96.21 - Acute and chronic respiratory failure with hypoxia Status: Acute Assessment and Plan: * due to combination of LEONIDAS, OHS, CHF, and possibly aspiration pneumonia * requiring high oxygen demands but seems to be improving * Pulmonary recommendations noted (5) Cellulitis of both lower extremities: Code(s): L03.115 - Cellulitis of right lower limb; L03.116 - Cellulitis of left lower limb Status: Acute Assessment and Plan: * true cellulitis versus chronic venous stasis changes versus combination of both * imaging studies noted * on broad spectrum antibiotics (6) CHF (congestive heart failure): Qualifiers: Heart failure chronicity: unspecified Heart failure type: unspecified Qualified Code(s): I50.9 - Heart failure, unspecified Code(s): I50.9 - Heart failure, unspecified Status: Acute Assessment and Plan: * as noted by admission imaging * IV lasix on hold * follow I/Os * Cardiology following (7) Diabetes: Code(s): E11.9 - Type 2 diabetes mellitus without complications Status: Acute Assessment and Plan: * follow accuchecks * on Lantus and SSI Will continue to follow Subjective Date/time seen: 09/17/20 11:55 Appears to be doing reasonably well -- excellent urine output without the use of diuretic therapy; up in chair at the time of my visit; no apparent distress voiced at this time; no events overnight or earlier this AM; feels pretty good. Exam Narrative: Exam Narrative: General: large male in NAD Heart: normal S1 and S2; no rub Lungs: coarse with decreased breath sounds at bases Abdomen: soft, nontender, nondistended, positive bowel sounds Extremities: no cyanosis or clubbing; 2+ edema Skin: bilateral erythema on top of chronic thickened skin changes (L>R) Objective Data Vital Signs Vital Signs: Vital Signs Temp Pulse Resp BP Pulse Ox 09/17/20 10:00 81 09/17/20 08:30 70 09/17/20 08:00 36.5 C 74 16 159/74 H 94 09/17/20 06:00 71 09/17/20 04:00 36.7 C 77
--- NOTE | 2020-09-17 11:55 | PM.PNNEP ---
Progress Note: A&P Assessment and Plan (1) SHAKIRA (acute kidney injury): Code(s): N17.9 - Acute kidney failure, unspecified Status: Acute Assessment and Plan: multifactorial: - infection (cellulitis +/- aspiration pneumonia) - insensible losses (fevers) - fluctuating hemodynamics - hypoxia - necessity of diuretic therapy (on hold currently) renal ultrasound normal urine lytes suggest pre-renal azotemia and urine eosinophis negative high BUN related to catabolic state?? follow trend of repeat labs and urine output - BUN elevated but creatinine improving.... excellent urine output -- suspect diuretic phase of recovering ATN (2) Stage 3a chronic kidney disease: Code(s): N18.31 - Chronic kidney disease, stage 3a Status: Chronic Assessment and Plan: baseline creatinine runs ~ 1.3 - 1.6mg/dl presumably due to HTN and diabetes along with LEONIDAS (3) Hyperkalemia: Code(s): E87.5 - Hyperkalemia Status: Acute Assessment and Plan: doing better due to lower extremity wounds(?) versus just his SHAKIRA/ARF(?) received medical management x 2 with improvement follow trend (4) Acute and chronic respiratory failure with hypoxia: Code(s): J96.21 - Acute and chronic respiratory failure with hypoxia Status: Acute Assessment and Plan: due to combination of LEONIDAS, OHS, CHF, and possibly aspiration pneumonia requiring high oxygen demands but seems to be improving Pulmonary recommendations noted (5) Cellulitis of both lower extremities: Code(s): L03.115 - Cellulitis of right lower limb; L03.116 - Cellulitis of left lower limb Status: Acute Assessment and Plan: true cellulitis versus chronic venous stasis changes versus combination of both imaging studies noted on broad spectrum antibiotics (6) CHF (congestive heart failure): Qualifiers: Heart failure chronicity: unspecified Heart failure type: unspecified Qualified Code(s): I50.9 - Heart failure, unspecified Code(s): I50.9 - Heart failure, unspecified Status: Acute Assessment and Plan: as noted by admission imaging IV lasix on hold follow I/Os Cardiology following (7) Diabetes: Code(s): E11.9 - Type 2 diabetes mellitus without complications Status: Acute Assessment and Plan: follow accuchecks on Lantus and SSI Will continue to follow Subjective Date/time seen: 09/17/20 11:55 Appears to be doing reasonably well -- excellent urine output without the use of diuretic therapy; up in chair at the time of my visit; no apparent distress voiced at this time; no events overnight or earlier this AM; feels pretty good. Exam Narrative: Exam Narrative: General: large male in NAD Heart: normal S1 and S2; no rub Lungs: coarse with decreased breath sounds at bases Abdomen: soft, nontender, nondistended, positive bowel sounds Extremities: no cyanosis or clubbing; 2+ edema Skin: bilateral erythema on top of chronic thickened skin changes (L>R) Objective Data Vital Signs Vital Signs: Vital Signs Temp Pulse Resp BP Pulse Ox 09/17/20 10:00 81 09/17/20 08:30 70 09/17/20 08:00 36.5 C 74 16 159/74 H 94 09/17/20 06:00 71 09/17/20 04:00 36.7 C 77 18 133/62 94 09/17/20 01:48 68 09/17/20 00:00 72 09/16/20 23:56 96 09/16/20 23:13 36.6 C 67 16 140/68 96 09/16/20 22:40 71 21 H 97 09/16/20 21:41 71 09/16/20 20:00 36.6 C 77 20 162/67 H 97 09/16/20 19:57 74 16 97 09/16/20 18:00 75 09/16/20 16:53 35.6 C L 74 18 161/71 H 99 09/16/20 16:00 75 09/16/20 15:43 74 16 97 09/16/20 13:55 75 09/16/20 12:00 35.8 C L 73 20 153/64 H 97 ddddd Intake/Output Intake/Output: Intake & Output 09/14/20 09/15/20 09/16/20 09/17/20 23:59 23:59 23:59
[2020-09-17 16:31] LABS: Glucose Point of Care 168 mg/dl (65-105)
--- NOTE | 2020-09-17 16:42 | PM.PNCARD ---
Progress Note: A&P Assessment and Plan (1) Congestive heart failure: Code(s): I50.9 - Heart failure, unspecified Status: Acute Assessment and Plan: He has grade II diastolic dysfunction demonstrated by echocardiogram in February 2020. EF 65-70%. Clinically not significantly decompensated in heart failure. His medical regimen was adjusted to support his diastolic noncompliace - on diltiazem and metoprolol. Monitor volume status closely. Nephrology following closely and monitoring need for HD. 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 Patient must receive DVT prophylaxis or re-initiate systemic anticoagulation. Given lower extremity wounds SCDs unlikely to be tolerated. Heparin 5000 units subcutaneous q.8 hours at minimum But must be cautious due to the development of thrombocytopenia. (3) Thrombocytopenia: Code(s): D69.6 - Thrombocytopenia, unspecified Status: Acute Assessment and Plan: Stable. Monitor platelet count and bleeding closely. H&H stable. DVT prophylaxis while he is off A/C. If no plans for HD or access resume A/C. Eliquis 5mg BID most likely. I would appreciate Nephrology input in this regard. If platelet counts continued to drop will need to discontinue heparin. - Eliquis may be a better option over Xarelto due to renal failure and CrCl 24 GFR 10. (4) Essential hypertension: Code(s): I10 - Essential (primary) hypertension Status: Acute Assessment and Plan: Continue to monitor, blood pressure reasonably controlled at this time. (5) Obesity hypoventilation syndrome: Code(s): E66.2 - Morbid (severe) obesity with alveolar hypoventilation Status: Acute Assessment and Plan: On BiPAP at [facility] and currently on hig flow O2. Pulm following. Additional Plan From a cardiac standpoint, he is stable And does not have any active cardiac concerns. Placed on diltiazem and metoprolol earlier in his hospitalization for management of his diastolic noncompliance. We will continue to follow along with this patient's care and see him on an as needed basis. Subjective Date/time seen: 09/17/20 16:42 Interval history: Follow-up visit in this 49-year-old man with: Significant diastolic noncompliance having been switched to regimen of metoprolol and diltiazem. No other active cardiac problems. Unfortunate patient is also very ill with acute renal failure and appears to have concerning so being treated with aggressive antibiotics. Nephrology consult being placed today as the patient has worsening renal failure and is now significantly hyperkalemic. Feels about the same no new issues. I added Heparin 5000U SC q8h for DVT dosing last night, no CP, remains 4L NC O2, +ROBERTS with any activity, ochoa BiPAP Date of service: Patient is asymptomatic says he feels quite well today is watching television when I entered the room to see him. Cellulitis in the lower extremity looks basically on improved to me. Infectious disease intelligence consultant notes are reviewed. No cardiovascular issues of note. We were asked to see this gentleman to recommend medical treatment of diastolic noncompliance which was done last week. spoke to the patient at some length about his renal insufficiency. Date of service 09/16/2020: Patient states he is feeling better today. He says he got up to the chair yesterday and did not have any issues with his breathing, however it states it was difficult due to some discomfort in his lower extremities and physical deconditioning. Discussed with him that he is stable from a cardiac standpoint. Unable to diurese at this time due to renal function. date of service 09/17/2020:
[2020-09-17 21:52] LABS: Glucose Point of Care 204 mg/dl (65-105)
[2020-09-18] VITALS (16 sets, daily range): BP systolic 138–169; BP diastolic 58–74; PULSE 63–79; RESP 16–31; TEMP 35.9–36.5; O2SAT 95–99
[2020-09-18] MEDS: CLINDAMYCIN 600 MG/D5W 50 ML 600 MG/50 ML PIGGYBACK 100 MG IVPB ×3 (05:33→21:44)
[2020-09-18] MEDS: CENTRAL LINE FLUSH 10 ML IV PUSH ×3 (05:33→21:45)
[2020-09-18] MEDS: HEPARIN SODIUM 5,000 UNITS/ML VIAL 5000 UNITS SUB-Q ×3 (05:33→21:45)
[2020-09-18 05:58] LABS: Hematocrit 29.5 % (42.0-52.0); Hemoglobin 9.1 g/dL (14.0-18.0); Mean Corpuscular HGB Conc 30.8 g/dl (32-36); Mean Corpuscular Hemoglobin 28.1 pg (26-34); Mean Platelet Volume 11.7 fl (7.4-10.4); Platelet Count Result 283 k/mm3 (150-375); Red Blood Count 3.24 M/mm3 (4.6-6.20); Red Cell Distribution Width 14.8 % (11.5-14.5); White Blood Count 10.4 K/mm3 (4.5-10.0)
[2020-09-18 06:07] LABS: Alanine Aminotransferase 18 U/L (4-50); Albumin Level 3.2 g/dL (3.5-5.1); Alkaline Phosphatase 84 U/L (38-126); Anion Gap 8 mmol/L (8-16); Aspartate Amino Transferase 39 U/L (17-59); Bilirubin,Total 0.3 mg/dL (0.2-1.3); Calcium 7.5 mg/dL (8.4-10.2); Carbon Dioxide 31 mmol/L (22-30); Chloride 96 mmol/L (98-107); Estimated CRCL calculation 35 ml/min; Estimated Glomerular Filt Rate 17; Glucose 172 mg/dL (75-110); Phosphorus 8.3 mg/dL (2.5-4.5); Potassium 4.2 mmol/L (3.4-5.0); Sodium 135 mmol/L (137-145)
[2020-09-18 06:35] LABS: Blood Urea Nitrogen 148 mg/dL (9-20)
[2020-09-18 08:46] LABS: Glucose Point of Care 176 mg/dl (65-105)
[2020-09-18] MEDS: METOPROLOL SUCCINATE EXT REL 25 MG TABCR PO (09:12)
[2020-09-18] MEDS: LORATADINE 10 MG TABLET PO (09:12)
[2020-09-18] MEDS: POLYSACCHARIDE IRON COMPLEX 150 MG CAPSULE PO (09:12)
[2020-09-18] MEDS: GABAPENTIN 300 MG CAPSULE PO ×3 (09:13→16:20)
--- NOTE | 2020-09-18 10:29 | P.PNNP_ITS ---
Progress Note: A&P Assessment and Plan (1) SHAKIRA (acute kidney injury): Code(s): N17.9 - Acute kidney failure, unspecified Status: Acute Assessment and Plan: * multifactorial: - infection (cellulitis +/- aspiration pneumonia) - insensible losses (fevers) - fluctuating hemodynamics - hypoxia - necessity of diuretic therapy (on hold currently) * renal ultrasound normal * urine lytes suggest pre-renal azotemia and urine eosinophis negative * high BUN related to catabolic state?? * follow trend of repeat labs and urine output - BUN elevated but creatinine improving.... * excellent urine output -- suspect diuretic phase of recovering ATN (2) Stage 3a chronic kidney disease: Code(s): N18.31 - Chronic kidney disease, stage 3a Status: Chronic Assessment and Plan: * baseline creatinine runs ~ 1.3 - 1.6mg/dl * presumably due to HTN and diabetes along with LEONIDAS (3) Hyperkalemia: Code(s): E87.5 - Hyperkalemia Status: Acute Assessment and Plan: * doing better * due to lower extremity wounds(?) versus just his SHAKIRA/ARF(?) * received medical management x 2 with improvement * follow trend (4) Acute and chronic respiratory failure with hypoxia: Code(s): J96.21 - Acute and chronic respiratory failure with hypoxia Status: Acute Assessment and Plan: * due to combination of LEONIDAS, OHS, CHF, and possibly aspiration pneumonia * requiring high oxygen demands but seems to be improving * Pulmonary recommendations noted (5) Cellulitis of both lower extremities: Code(s): L03.115 - Cellulitis of right lower limb; L03.116 - Cellulitis of left lower limb Status: Acute Assessment and Plan: * true cellulitis versus chronic venous stasis changes versus combination of both * imaging studies noted * on broad spectrum antibiotics (6) CHF (congestive heart failure): Qualifiers: Heart failure chronicity: unspecified Heart failure type: unspecified Qualified Code(s): I50.9 - Heart failure, unspecified Code(s): I50.9 - Heart failure, unspecified Status: Acute Assessment and Plan: * as noted by admission imaging * IV lasix on hold * follow I/Os * Cardiology following (7) Diabetes: Code(s): E11.9 - Type 2 diabetes mellitus without complications Status: Acute Assessment and Plan: * follow accuchecks * on Lantus and SSI Will continue to follow Subjective Date/time seen: 09/18/20 10:29 Continues to do reasonably well at this time; excellent urine output in the last 24 - 48 hours (without diuretics); BP has been creeping up as well; no apparent distress voiced; no events overnight or earlier this AM. Exam Narrative: Exam Narrative: General: large male in NAD Heart: normal S1 and S2; no rub Lungs: coarse with decreased breath sounds at bases Abdomen: soft, nontender, nondistended, positive bowel sounds Extremities: no cyanosis or clubbing; 2+ edema Skin: bilateral erythema on top of chronic thickened skin changes (L>R) Objective Data Vital Signs Vital Signs: Vital Signs Temp Pulse Resp BP Pulse Ox 09/18/20 09:12 73 09/18/20 08:32 36.0 C L 66 20 155/74 H 97 09/18/20 06:00 64 09/18/20 04:00 36.4 C L 65 20 138/65 98 09/18/20 02:10 31 H 96
--- NOTE | 2020-09-18 10:29 | PM.PNNEP ---
Progress Note: A&P Assessment and Plan (1) SHAKIRA (acute kidney injury): Code(s): N17.9 - Acute kidney failure, unspecified Status: Acute Assessment and Plan: multifactorial: - infection (cellulitis +/- aspiration pneumonia) - insensible losses (fevers) - fluctuating hemodynamics - hypoxia - necessity of diuretic therapy (on hold currently) renal ultrasound normal urine lytes suggest pre-renal azotemia and urine eosinophis negative high BUN related to catabolic state?? follow trend of repeat labs and urine output - BUN elevated but creatinine improving.... excellent urine output -- suspect diuretic phase of recovering ATN (2) Stage 3a chronic kidney disease: Code(s): N18.31 - Chronic kidney disease, stage 3a Status: Chronic Assessment and Plan: baseline creatinine runs ~ 1.3 - 1.6mg/dl presumably due to HTN and diabetes along with LEONIDAS (3) Hyperkalemia: Code(s): E87.5 - Hyperkalemia Status: Acute Assessment and Plan: doing better due to lower extremity wounds(?) versus just his SHAKIRA/ARF(?) received medical management x 2 with improvement follow trend (4) Acute and chronic respiratory failure with hypoxia: Code(s): J96.21 - Acute and chronic respiratory failure with hypoxia Status: Acute Assessment and Plan: due to combination of LEONIDAS, OHS, CHF, and possibly aspiration pneumonia requiring high oxygen demands but seems to be improving Pulmonary recommendations noted (5) Cellulitis of both lower extremities: Code(s): L03.115 - Cellulitis of right lower limb; L03.116 - Cellulitis of left lower limb Status: Acute Assessment and Plan: true cellulitis versus chronic venous stasis changes versus combination of both imaging studies noted on broad spectrum antibiotics (6) CHF (congestive heart failure): Qualifiers: Heart failure chronicity: unspecified Heart failure type: unspecified Qualified Code(s): I50.9 - Heart failure, unspecified Code(s): I50.9 - Heart failure, unspecified Status: Acute Assessment and Plan: as noted by admission imaging IV lasix on hold follow I/Os Cardiology following (7) Diabetes: Code(s): E11.9 - Type 2 diabetes mellitus without complications Status: Acute Assessment and Plan: follow accuchecks on Lantus and SSI Will continue to follow Subjective Date/time seen: 09/18/20 10:29 Continues to do reasonably well at this time; excellent urine output in the last 24 - 48 hours (without diuretics); BP has been creeping up as well; no apparent distress voiced; no events overnight or earlier this AM. Exam Narrative: Exam Narrative: General: large male in NAD Heart: normal S1 and S2; no rub Lungs: coarse with decreased breath sounds at bases Abdomen: soft, nontender, nondistended, positive bowel sounds Extremities: no cyanosis or clubbing; 2+ edema Skin: bilateral erythema on top of chronic thickened skin changes (L>R) Objective Data Vital Signs Vital Signs: Vital Signs Temp Pulse Resp BP Pulse Ox 09/18/20 09:12 73 09/18/20 08:32 36.0 C L 66 20 155/74 H 97 09/18/20 06:00 64 09/18/20 04:00 36.4 C L 65 20 138/65 98 09/18/20 02:10 31 H 96 09/18/20 02:00 63 09/18/20 00:00 36.4 C L 72 20 142/58 H 97 09/17/20 22:00 79 09/17/20 20:00 75 93 09/17/20 19:49 36.5 C 76 24 H 150/52 H 98 09/17/20 18:00 77 09/17/20 16:46 95 09/17/20 16:00 36.5 C 78 24 H 147/57 H 97 09/17/20 14:00 74 09/17/20 12:00 36.9 C 76 24 H 172/68 H 95 Intake/Output Intake/Output: Intake & Output 09/15/20 09/16/20 09/17/20 09/18/20 23:59 23:59 23:59 23:59 Intake Total 8717 293 7312 550 Output Total 1650 2000 3000 900 Balance -500 -1050 -1580 -350 Meds/Results Medica
[2020-09-18 12:24] LABS: Glucose Point of Care 211 mg/dl (65-105)
[2020-09-18] MEDS: INSULIN ASPART (*BKC) 100 UNITS/ML SUB-Q (12:45)
[2020-09-18] MEDS: ALTEPLASE 2 MG VIAL (CATHFLO) IV PUSH (16:19)
--- NOTE | 2020-09-18 17:00 | PM.IMPN ---
Progress Note: A&P Assessment and Plan (1) Bilateral cellulitis of lower leg: Code(s): L03.116 - Cellulitis of left lower limb; L03.115 - Cellulitis of right lower limb Status: Acute Assessment and Plan: IV antibiotics , CT noncontrast to the left lower extremity, did not show evidence of necrotizing fasciitis. consult Infectious Disease Continue with IV antibiotics. Cellulitis slightly better. check culture (2) SHAKIRA (acute kidney injury): Code(s): N17.9 - Acute kidney failure, unspecified Status: Acute Assessment and Plan: Monitor renal function and electrolytes, creatinine is 3.9 Nephrology Consult noted. (3) Pulmonary hypertension: Code(s): I27.20 - Pulmonary hypertension, unspecified Status: Acute Assessment and Plan: Lasix p.r.n. (4) Congestive heart failure: Code(s): I50.9 - Heart failure, unspecified Status: Acute Assessment and Plan: Lasix, beta-emerson, MARKO-inhibitor on hold in the light of his renal dysfunction (5) Acute and chronic respiratory failure with hypoxia: Code(s): J96.21 - Acute and chronic respiratory failure with hypoxia Status: Acute Assessment and Plan: Wean patient off oxygen as tolerated Treat CHF and COPD (6) COPD (chronic obstructive pulmonary disease): Code(s): J44.9 - Chronic obstructive pulmonary disease, unspecified Status: Acute Assessment and Plan: Bronchodilators Steroids Pulmonary consult (7) 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 (8) Cellulitis: Code(s): L03.90 - Cellulitis, unspecified Status: Acute Assessment and Plan: IV antibiotics (9) Rhabdomyolysis: Code(s): M62.82 - Rhabdomyolysis Status: Acute Assessment and Plan: keep patient well hydrated, monitor CK level, and renal function Additional Plan Will continue current plan of care and treatment. Will continue with IV antibiotics. Monitor labs and culture. If dialysis catheter is not placed will resume Xarelto. 09/17/2020: creatinine is 4.7 today slightly better than before. Will discuss with Nephrology about the need for dialysis. If dialysis note dated will resume Xarelto. Subjective Date/time seen: 09/18/20 17:00 I feel better Interval history: Follow-up visit in this 49-year-old man with: Significant diastolic noncompliance having been switched to regimen of metoprolol and diltiazem. No other active cardiac problems. Unfortunate patient is also very ill with acute renal failure and appears to have concerning so being treated with aggressive antibiotics. Nephrology consult being placed today as the patient has worsening renal failure and is now significantly hyperkalemic. Feels about the same no new issues. I added Heparin 5000U SC q8h for DVT dosing last night, no CP, remains 4L NC O2, +ROBERTS with any activity, ochoa BiPAP Date of service: Patient is asymptomatic says he feels quite well today is watching television when I entered the room to see him. Cellulitis in the lower extremity looks basically on improved to me. Infectious disease clinical services consultant notes are reviewed. No cardiovascular issues of note. We were asked to see this gentleman to recommend medical treatment of diastolic noncompliance which was done last week. spoke to the patient at some length about his renal insufficiency. Date of service 09/16/2020: Patient states he is feeling better today. He says he got up to the chair yesterday and did not have any issues with his breathing, however it states it was difficult due to some discomfort in his lower extremities and physical deconditioning. Discussed with him that he is stable from a cardiac standpoint
[2020-09-18 17:02] LABS: Glucose Point of Care 190 mg/dl (65-105)
[2020-09-18] MEDS: DAPTOmycin 500 MG in SODIUM CHLORIDE 0.9% IV 50 ML 100 MG IVPB (20:49)
[2020-09-18 21:35] LABS: Glucose Point of Care 174 mg/dl (65-105)
[2020-09-19] VITALS (10 sets, daily range): BP systolic 132–183; BP diastolic 60–75; PULSE 61–79; RESP 14–22; TEMP 36.2–36.9; O2SAT 13–98
[2020-09-19 05:53] LABS: Albumin Level 3.2 g/dL (3.5-5.1); Anion Gap 8 mmol/L (8-16); Calcium 7.9 mg/dL (8.4-10.2); Carbon Dioxide 32 mmol/L (22-30); Chloride 98 mmol/L (98-107); Estimated CRCL calculation 41 ml/min; Estimated Glomerular Filt Rate 20; Glucose 153 mg/dL (75-110); Phosphorus 8.2 mg/dL (2.5-4.5); Potassium 4.3 mmol/L (3.4-5.0); Sodium 138 mmol/L (137-145)
[2020-09-19] MEDS: HEPARIN SODIUM 5,000 UNITS/ML VIAL 5000 UNITS SUB-Q ×3 (06:27→21:07)
[2020-09-19] MEDS: CENTRAL LINE FLUSH 10 ML IV PUSH ×3 (06:27→21:07)
[2020-09-19] MEDS: CLINDAMYCIN 600 MG/D5W 50 ML 600 MG/50 ML PIGGYBACK 100 MG IVPB ×3 (06:31→21:06)
[2020-09-19 07:22] LABS: Blood Urea Nitrogen 140 mg/dL (9-20)
[2020-09-19 07:46] LABS: Glucose Point of Care 148 mg/dl (65-105)
[2020-09-19] MEDS: GABAPENTIN 300 MG CAPSULE PO ×3 (08:45→17:03)
[2020-09-19] MEDS: LORATADINE 10 MG TABLET PO (08:46)
[2020-09-19] MEDS: METOPROLOL SUCCINATE EXT REL 25 MG TABCR PO (08:46)
[2020-09-19] MEDS: POLYSACCHARIDE IRON COMPLEX 150 MG CAPSULE PO (08:46)
--- NOTE | 2020-09-19 09:19 | PCPTNOTE ---
The patient treatment was not able to be completed on 09/18/2020. Will plan to continue treatment per plan of care.
[2020-09-19 11:42] LABS: Glucose Point of Care 170 mg/dl (65-105)
--- NOTE | 2020-09-19 13:14 | PM.IMPN ---
Progress Note: A&P Assessment and Plan (1) Bilateral cellulitis of lower leg: Code(s): L03.116 - Cellulitis of left lower limb; L03.115 - Cellulitis of right lower limb Status: Acute Assessment and Plan: IV antibiotics , CT noncontrast to the left lower extremity, did not show evidence of necrotizing fasciitis. consult Infectious Disease Continue with IV antibiotics. Cellulitis slightly better. check culture some improvement (2) SHAKIRA (acute kidney injury): Code(s): N17.9 - Acute kidney failure, unspecified Status: Acute Assessment and Plan: Monitor renal function and electrolytes, creatinine is 3.9 Nephrology Consult noted. checking labs today (3) Pulmonary hypertension: Code(s): I27.20 - Pulmonary hypertension, unspecified Status: Acute Assessment and Plan: Lasix p.r.n. currently on BiPAP at nighttime supplemental oxygen during daytime (4) Congestive heart failure: Code(s): I50.9 - Heart failure, unspecified Status: Acute Assessment and Plan: Lasix, beta-emerson, MARKO-inhibitor on hold in the light of his renal dysfunction continue to monitor intake and output Stephens in place (5) Acute and chronic respiratory failure with hypoxia: Code(s): J96.21 - Acute and chronic respiratory failure with hypoxia Status: Acute Assessment and Plan: Wean patient off oxygen as tolerated Treat CHF and COPD improved (6) COPD (chronic obstructive pulmonary disease): Code(s): J44.9 - Chronic obstructive pulmonary disease, unspecified Status: Acute Assessment and Plan: Bronchodilators Steroids Pulmonary consult improved (7) 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 (8) Cellulitis: Code(s): L03.90 - Cellulitis, unspecified Status: Acute Assessment and Plan: IV antibiotics on clindamycin (9) Rhabdomyolysis: Code(s): M62.82 - Rhabdomyolysis Status: Acute Assessment and Plan: keep patient well hydrated, monitor CK level, and renal function Additional Plan Will continue current plan of care and treatment. Will continue with IV antibiotics. Monitor labs and culture. If dialysis catheter is not placed will resume Xarelto. 09/17/2020: creatinine is 4.7 today slightly better than before. Will discuss with Nephrology about the need for dialysis. If dialysis note dated will resume Gerald. Subjective Date/time seen: 09/19/20 13:14 I feel okay Interval history: Follow-up visit in this 49-year-old man with: Significant diastolic noncompliance having been switched to regimen of metoprolol and diltiazem. No other active cardiac problems. Unfortunate patient is also very ill with acute renal failure and appears to have concerning so being treated with aggressive antibiotics. Nephrology consult being placed today as the patient has worsening renal failure and is now significantly hyperkalemic. Feels about the same no new issues. I added Heparin 5000U SC q8h for DVT dosing last night, no CP, remains 4L NC O2, +ROBERTS with any activity, ochoa BiPAP Date of service: Patient is asymptomatic says he feels quite well today is watching television when I entered the room to see him. Cellulitis in the lower extremity looks basically on improved to me. Infectious disease netsuite consultant notes are reviewed. No cardiovascular issues of note. We were asked to see this gentleman to recommend medical treatment of diastolic noncompliance which was done last week. spoke to the patient at some length about his renal insufficiency. Date of service 09/16/2020: Patient states he is feeling better today. He says he got up to the chair yesterday and did not have any
--- NOTE | 2020-09-19 13:19 | P.PNNP_ITS ---
Progress Note: A&P Assessment and Plan (1) SHAKIRA (acute kidney injury): Code(s): N17.9 - Acute kidney failure, unspecified Status: Acute Assessment and Plan: * multifactorial: - infection (cellulitis +/- aspiration pneumonia) - insensible losses (fevers) - fluctuating hemodynamics - hypoxia - necessity of diuretic therapy (on hold currently) * renal ultrasound normal * urine lytes suggest pre-renal azotemia and urine eosinophis negative * high BUN related to catabolic state?? * follow trend of repeat labs and urine output - BUN elevated but creatinine improving.... * excellent urine output -- suspect diuretic phase of recovering ATN (2) Stage 3a chronic kidney disease: Code(s): N18.31 - Chronic kidney disease, stage 3a Status: Chronic Assessment and Plan: * baseline creatinine runs ~ 1.3 - 1.6mg/dl * presumably due to HTN and diabetes along with LEONIDAS (3) Hyperkalemia: Code(s): E87.5 - Hyperkalemia Status: Acute Assessment and Plan: * doing better * due to lower extremity wounds(?) versus just his SHAKIRA/ARF(?) * received medical management x 2 with improvement * follow trend (4) Acute and chronic respiratory failure with hypoxia: Code(s): J96.21 - Acute and chronic respiratory failure with hypoxia Status: Acute Assessment and Plan: * due to combination of LEONIDAS, OHS, CHF, and possibly aspiration pneumonia * requiring high oxygen demands but seems to be improving if not stable * Pulmonary recommendations noted (5) Cellulitis of both lower extremities: Code(s): L03.115 - Cellulitis of right lower limb; L03.116 - Cellulitis of left lower limb Status: Acute Assessment and Plan: * true cellulitis versus chronic venous stasis changes versus combination of both * imaging studies noted * on broad spectrum antibiotics (6) CHF (congestive heart failure): Qualifiers: Heart failure chronicity: unspecified Heart failure type: unspecified Qualified Code(s): I50.9 - Heart failure, unspecified Code(s): I50.9 - Heart failure, unspecified Status: Acute Assessment and Plan: * as noted by admission imaging * IV lasix on hold * follow I/Os (post ATN diuresis ongoing) * Cardiology following (7) Diabetes: Code(s): E11.9 - Type 2 diabetes mellitus without complications Status: Acute Assessment and Plan: * follow accuchecks * on Lantus and SSI Will continue to follow Subjective Date/time seen: 09/19/20 13:19 No acute complaints today; overall, seems to be feeling reasonably well; no issues/events overnight or earlier this AM; continues to make good urine output with slow improvement in BUN and creatinine; no distress voiced at the time of my visit. Exam Narrative: Exam Narrative: General: large male in NAD Heart: normal S1 and S2; no rub Lungs: coarse with decreased breath sounds at bases Abdomen: soft, nontender, nondistended, positive bowel sounds Extremities: no cyanosis or clubbing; 2+ edema Skin: bilateral erythema on top of chronic thickened skin changes (L>R) Objective Data Vital Signs Vital Signs: Vital Signs Temp Pulse Resp BP Pulse Ox 09/19/20 12:00 36.6 C 71 22 H 182/74 H 96 09/19/20 10:00 95 09/19/20 08:52 95 09/19/20 08
--- NOTE | 2020-09-19 13:19 | PM.PNNEP ---
Progress Note: A&P Assessment and Plan (1) SHAKIRA (acute kidney injury): Code(s): N17.9 - Acute kidney failure, unspecified Status: Acute Assessment and Plan: multifactorial: - infection (cellulitis +/- aspiration pneumonia) - insensible losses (fevers) - fluctuating hemodynamics - hypoxia - necessity of diuretic therapy (on hold currently) renal ultrasound normal urine lytes suggest pre-renal azotemia and urine eosinophis negative high BUN related to catabolic state?? follow trend of repeat labs and urine output - BUN elevated but creatinine improving.... excellent urine output -- suspect diuretic phase of recovering ATN (2) Stage 3a chronic kidney disease: Code(s): N18.31 - Chronic kidney disease, stage 3a Status: Chronic Assessment and Plan: baseline creatinine runs ~ 1.3 - 1.6mg/dl presumably due to HTN and diabetes along with LEONIDAS (3) Hyperkalemia: Code(s): E87.5 - Hyperkalemia Status: Acute Assessment and Plan: doing better due to lower extremity wounds(?) versus just his SHAKIRA/ARF(?) received medical management x 2 with improvement follow trend (4) Acute and chronic respiratory failure with hypoxia: Code(s): J96.21 - Acute and chronic respiratory failure with hypoxia Status: Acute Assessment and Plan: due to combination of LEONIDAS, OHS, CHF, and possibly aspiration pneumonia requiring high oxygen demands but seems to be improving if not stable Pulmonary recommendations noted (5) Cellulitis of both lower extremities: Code(s): L03.115 - Cellulitis of right lower limb; L03.116 - Cellulitis of left lower limb Status: Acute Assessment and Plan: true cellulitis versus chronic venous stasis changes versus combination of both imaging studies noted on broad spectrum antibiotics (6) CHF (congestive heart failure): Qualifiers: Heart failure chronicity: unspecified Heart failure type: unspecified Qualified Code(s): I50.9 - Heart failure, unspecified Code(s): I50.9 - Heart failure, unspecified Status: Acute Assessment and Plan: as noted by admission imaging IV lasix on hold follow I/Os (post ATN diuresis ongoing) Cardiology following (7) Diabetes: Code(s): E11.9 - Type 2 diabetes mellitus without complications Status: Acute Assessment and Plan: follow accuchecks on Lantus and SSI Will continue to follow Subjective Date/time seen: 09/19/20 13:19 No acute complaints today; overall, seems to be feeling reasonably well; no issues/events overnight or earlier this AM; continues to make good urine output with slow improvement in BUN and creatinine; no distress voiced at the time of my visit. Exam Narrative: Exam Narrative: General: large male in NAD Heart: normal S1 and S2; no rub Lungs: coarse with decreased breath sounds at bases Abdomen: soft, nontender, nondistended, positive bowel sounds Extremities: no cyanosis or clubbing; 2+ edema Skin: bilateral erythema on top of chronic thickened skin changes (L>R) Objective Data Vital Signs Vital Signs: Vital Signs Temp Pulse Resp BP Pulse Ox 09/19/20 12:00 36.6 C 71 22 H 182/74 H 96 09/19/20 10:00 95 09/19/20 08:52 95 09/19/20 08:46 69 09/19/20 08:00 36.2 C L 61 153/71 H 95 09/19/20 04:00 36.9 C 68 17 140/62 98 09/19/20 03:35 69 14 96 09/19/20 00:00 36.4 C 75 17 132/60 96 09/18/20 23:15 74 18 96 09/18/20 20:00 36.5 C 73 16 159/70 H 95 09/18/20 17:30 35.9 C L 74 16 157/67 H 99 09/18/20 16:00 72 Intake/Output Intake/Output: Intake & Output 09/16/20 09/17/20 09/18/20 09/19/20 23:59 23:59 23:59 23:59 Intake Total 950 1420 2090 1260 Output Total 1999 3000 2750 2350 Balance -1050 -1580 -660 -1090 Meds/Results Medications: Ac
--- NOTE | 2020-09-19 13:30 | PC.NURSE ---
This patient, Ulices Canas, was transferred to [facility] on 09/19/20 at 1330. Personal belongings sent with patient. Report given to EMMA Patel. Appropriate documentation sent with patient.
[2020-09-19] MEDS: CENTRAL LINE FLUSH 20 ML IV PUSH (14:44)
[2020-09-19 15:10] LABS: Basophils Absolute Auto 0.1 K/mm3 (0.0-0.1); Basophils Percent Auto 0.5 % (0.2-1.2); Eosinophils Absolute Auto 0.6 K/mm3 (0-0.3); Eosinophils Percent Auto 5.1 % (0-4.4); Hematocrit 30.5 % (42.0-52.0); Hemoglobin 9.5 g/dL (14.0-18.0); Immature Granulocyte Absolute 0.53 K/mm3 (0.00-0.031); Immature Granulocyte Percent A 4.9 % (0-0.5); Lymphocytes Percent Auto 13.9 % (18.3-44.2); Mean Corpuscular HGB Conc 31.1 g/dl (32-36); Mean Corpuscular Hemoglobin 28.1 pg (26-34); Mean Corpuscular Volume 90.2 fl (80-100); Mean Platelet Volume 11.5 fl (7.4-10.4); Neutrophils Absolute Auto 7.2 K/mm3 (1.3-6.7); Neutrophils Percent Auto 66.6 % (45.5-73.1); Platelet Count Result 332 k/mm3 (150-375); Red Blood Count 3.38 M/mm3 (4.6-6.20); Red Cell Distribution Width 14.6 % (11.5-14.5); White Blood Count 10.8 K/mm3 (4.5-10.0)
[2020-09-19 15:31] LABS: Anion Gap 7 mmol/L (8-16); Calcium 8.3 mg/dL (8.4-10.2); Carbon Dioxide 35 mmol/L (22-30); Chloride 96 mmol/L (98-107); Estimated CRCL calculation 42 ml/min; Estimated Glomerular Filt Rate 21; Glucose 194 mg/dL (75-110); Magnesium 2.6 mg/dL (1.6-2.3); Potassium 4.7 mmol/L (3.4-5.0); Sodium 138 mmol/L (137-145)
[2020-09-19 15:38] LABS: Blood Urea Nitrogen 131 mg/dL (9-20)
[2020-09-19 17:19] LABS: Glucose Point of Care 174 mg/dl (65-105)
[2020-09-19] MEDS: INSULIN GLARGINE (*BKC) 100 UNITS/ML 20 UNITS SUB-Q (17:31)
[2020-09-19 21:00] LABS: Glucose Point of Care 201 mg/dl (65-105)
[2020-09-20] VITALS (10 sets, daily range): BP systolic 139–169; BP diastolic 58–82; PULSE 62–97; RESP 14–20; TEMP 36.1–36.9; O2SAT 94–99
[2020-09-20] MEDS: CLINDAMYCIN 600 MG/D5W 50 ML 600 MG/50 ML PIGGYBACK 100 MG IVPB ×3 (05:15→21:20)
[2020-09-20] MEDS: CENTRAL LINE FLUSH 20 ML IV PUSH (05:16)
[2020-09-20] MEDS: HEPARIN SODIUM 5,000 UNITS/ML VIAL 5000 UNITS SUB-Q ×3 (05:16→21:21)
[2020-09-20] MEDS: CENTRAL LINE FLUSH 10 ML IV PUSH ×3 (05:16→21:21)
[2020-09-20 06:12] LABS: Albumin Level 3.1 g/dL (3.5-5.1); Anion Gap 8 mmol/L (8-16); Calcium 8.2 mg/dL (8.4-10.2); Carbon Dioxide 34 mmol/L (22-30); Chloride 99 mmol/L (98-107); Estimated CRCL calculation 45 ml/min; Estimated Glomerular Filt Rate 22; Glucose 172 mg/dL (75-110); Phosphorus 6.9 mg/dL (2.5-4.5); Potassium 4.4 mmol/L (3.4-5.0); Sodium 141 mmol/L (137-145)
[2020-09-20 06:25] LABS: Blood Urea Nitrogen 123 mg/dL (9-20)
[2020-09-20 09:00] LABS: Glucose Point of Care 157 mg/dl (65-105)
--- NOTE | 2020-09-20 09:40 | PC.NURSE ---
call to pharm for missing antibiotic dose
[2020-09-20] MEDS: POLYSACCHARIDE IRON COMPLEX 150 MG CAPSULE PO (09:41)
[2020-09-20] MEDS: GABAPENTIN 300 MG CAPSULE PO ×3 (09:41→18:15)
[2020-09-20] MEDS: METOPROLOL SUCCINATE EXT REL 25 MG TABCR PO (09:41)
[2020-09-20] MEDS: LORATADINE 10 MG TABLET PO (09:41)
[2020-09-20] MEDS: INSULIN GLARGINE (*BKC) 100 UNITS/ML 20 UNITS SUB-Q ×2 (09:44→21:23)
--- NOTE | 2020-09-20 10:50 | P.PNNP_ITS ---
Progress Note: A&P Assessment and Plan (1) SHAKIRA (acute kidney injury): Code(s): N17.9 - Acute kidney failure, unspecified Status: Acute Assessment and Plan: * multifactorial: - infection (cellulitis +/- aspiration pneumonia) - insensible losses (fevers) - fluctuating hemodynamics - hypoxia - necessity of diuretic therapy (on hold currently) * renal ultrasound normal * urine lytes suggest pre-renal azotemia and urine eosinophis negative * high BUN related to catabolic state?? * follow trend of repeat labs and urine output - BUN and creatinine slowly improving.... * excellent urine output -- suspect diuretic phase of recovering ATN (2) Stage 3a chronic kidney disease: Code(s): N18.31 - Chronic kidney disease, stage 3a Status: Chronic Assessment and Plan: * baseline creatinine runs ~ 1.3 - 1.6mg/dl * presumably due to HTN and diabetes along with LEONIDAS * he may have a new baseline creatinine given the severity of the insult on his hospitalization (3) Hyperkalemia: Code(s): E87.5 - Hyperkalemia Status: Acute Assessment and Plan: * doing better * due to lower extremity wounds(?) versus just his SHAKIRA/ARF(?) * received medical management x 2 with improvement * follow trend (4) Acute and chronic respiratory failure with hypoxia: Code(s): J96.21 - Acute and chronic respiratory failure with hypoxia Status: Acute Assessment and Plan: * due to combination of LEONIDAS, OHS, CHF, and possibly aspiration pneumonia * was requiring high oxygen demands but seems to be improving if not stable now * Pulmonary recommendations noted (5) Cellulitis of both lower extremities: Code(s): L03.115 - Cellulitis of right lower limb; L03.116 - Cellulitis of left lower limb Status: Acute Assessment and Plan: * true cellulitis versus chronic venous stasis changes versus combination of both * imaging studies noted * on broad spectrum antibiotics (6) CHF (congestive heart failure): Qualifiers: Heart failure chronicity: unspecified Heart failure type: unspecified Qualified Code(s): I50.9 - Heart failure, unspecified Code(s): I50.9 - Heart failure, unspecified Status: Acute Assessment and Plan: * as noted by admission imaging * IV lasix on hold * follow I/Os (post ATN diuresis ongoing) * Cardiology following (7) Diabetes: Code(s): E11.9 - Type 2 diabetes mellitus without complications Status: Acute Assessment and Plan: * follow accuchecks * on Lantus and SSI Will continue to follow Subjective Date/time seen: 09/20/20 10:50 No new issues or problems overnight or earlier this AM; feels okay -- no apparent distress to report at the time of my visit; eating and drinking okay; continues to make good urine output with slow and steady improvement in kidney function as noted by AM labs. Exam Narrative: Exam Narrative: General: large male in NAD Heart: normal S1 and S2; no rub Lungs: coarse with decreased breath sounds at bases Abdomen: soft, nontender, nondistended, positive bowel sounds Extremities: no cyanosis or clubbing; 2+ edema Skin: erythema bilaterally on top of chronic thickened skin changes (L>R) on LEs Objective Data Vital Signs Vital Signs: Vital Signs Temp Pulse Resp BP Pulse Ox
--- NOTE | 2020-09-20 10:50 | PM.PNNEP ---
Progress Note: A&P Assessment and Plan (1) SHAKIRA (acute kidney injury): Code(s): N17.9 - Acute kidney failure, unspecified Status: Acute Assessment and Plan: multifactorial: - infection (cellulitis +/- aspiration pneumonia) - insensible losses (fevers) - fluctuating hemodynamics - hypoxia - necessity of diuretic therapy (on hold currently) renal ultrasound normal urine lytes suggest pre-renal azotemia and urine eosinophis negative high BUN related to catabolic state?? follow trend of repeat labs and urine output - BUN and creatinine slowly improving.... excellent urine output -- suspect diuretic phase of recovering ATN (2) Stage 3a chronic kidney disease: Code(s): N18.31 - Chronic kidney disease, stage 3a Status: Chronic Assessment and Plan: baseline creatinine runs ~ 1.3 - 1.6mg/dl presumably due to HTN and diabetes along with LEONIDAS he may have a new baseline creatinine given the severity of the insult on his hospitalization (3) Hyperkalemia: Code(s): E87.5 - Hyperkalemia Status: Acute Assessment and Plan: doing better due to lower extremity wounds(?) versus just his SHAKIRA/ARF(?) received medical management x 2 with improvement follow trend (4) Acute and chronic respiratory failure with hypoxia: Code(s): J96.21 - Acute and chronic respiratory failure with hypoxia Status: Acute Assessment and Plan: due to combination of LEONIDAS, OHS, CHF, and possibly aspiration pneumonia was requiring high oxygen demands but seems to be improving if not stable now Pulmonary recommendations noted (5) Cellulitis of both lower extremities: Code(s): L03.115 - Cellulitis of right lower limb; L03.116 - Cellulitis of left lower limb Status: Acute Assessment and Plan: true cellulitis versus chronic venous stasis changes versus combination of both imaging studies noted on broad spectrum antibiotics (6) CHF (congestive heart failure): Qualifiers: Heart failure chronicity: unspecified Heart failure type: unspecified Qualified Code(s): I50.9 - Heart failure, unspecified Code(s): I50.9 - Heart failure, unspecified Status: Acute Assessment and Plan: as noted by admission imaging IV lasix on hold follow I/Os (post ATN diuresis ongoing) Cardiology following (7) Diabetes: Code(s): E11.9 - Type 2 diabetes mellitus without complications Status: Acute Assessment and Plan: follow accuchecks on Lantus and SSI Will continue to follow Subjective Date/time seen: 09/20/20 10:50 No new issues or problems overnight or earlier this AM; feels okay -- no apparent distress to report at the time of my visit; eating and drinking okay; continues to make good urine output with slow and steady improvement in kidney function as noted by AM labs. Exam Narrative: Exam Narrative: General: large male in NAD Heart: normal S1 and S2; no rub Lungs: coarse with decreased breath sounds at bases Abdomen: soft, nontender, nondistended, positive bowel sounds Extremities: no cyanosis or clubbing; 2+ edema Skin: erythema bilaterally on top of chronic thickened skin changes (L>R) on LEs Objective Data Vital Signs Vital Signs: Vital Signs Temp Pulse Resp BP Pulse Ox 09/20/20 09:41 78 09/20/20 08:30 78 18 96 09/20/20 08:00 36.6 C 71 18 169/72 H 96 09/20/20 04:00 36.1 C L 97 20 139/76 98 09/20/20 00:23 75 20 99 09/20/20 00:00 36.2 C L 77 20 147/60 H 97 09/19/20 20:00 36.4 C L 76 20 183/75 H 94 09/19/20 16:00 36.3 C L 79 18 180/70 H 98 09/19/20 12:00 36.6 C 71 22 H 182/74 H 96 Intake/Output Intake/Output: Intake & Output 09/17/20 09/18/20 09/19/20 09/20/20 23:59 23:59 23:59 23:59 Intake Total 1420 2090 2100 1040 Output Total 3000 2750 3300 1850
[2020-09-20 12:06] LABS: Glucose Point of Care 216 mg/dl (65-105)
[2020-09-20] MEDS: INSULIN ASPART (*BKC) 100 UNITS/ML SUB-Q (12:09)
[2020-09-20] MEDS: ACETAMINOPHEN 325 MG TABLET 650 MG PO (13:41)
--- NOTE | 2020-09-20 14:47 | PM.IMPN ---
Progress Note: A&P Assessment and Plan (1) Bilateral cellulitis of lower leg: Code(s): L03.116 - Cellulitis of left lower limb; L03.115 - Cellulitis of right lower limb Status: Acute Assessment and Plan: IV antibiotics , CT noncontrast to the left lower extremity, did not show evidence of necrotizing fasciitis. consult Infectious Disease Continue with IV antibiotics. Cellulitis slightly better. check culture some improvement CONTINUE LOCAL CARE (2) SHAKIRA (acute kidney injury): Code(s): N17.9 - Acute kidney failure, unspecified Status: Acute Assessment and Plan: Monitor renal function and electrolytes, creatinine is 3.9 Nephrology Consult noted. checking labs today (3) Pulmonary hypertension: Code(s): I27.20 - Pulmonary hypertension, unspecified Status: Acute Assessment and Plan: Lasix p.r.n. currently on BiPAP at nighttime supplemental oxygen during daytime (4) Congestive heart failure: Code(s): I50.9 - Heart failure, unspecified Status: Acute Assessment and Plan: Lasix, beta-emerson, MARKO-inhibitor on hold in the light of his renal dysfunction continue to monitor intake and output Stephens in place (5) Acute and chronic respiratory failure with hypoxia: Code(s): J96.21 - Acute and chronic respiratory failure with hypoxia Status: Acute Assessment and Plan: Wean patient off oxygen as tolerated Treat CHF and COPD improved (6) COPD (chronic obstructive pulmonary disease): Code(s): J44.9 - Chronic obstructive pulmonary disease, unspecified Status: Acute Assessment and Plan: Bronchodilators Steroids Pulmonary consult improved (7) 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 (8) Cellulitis: Code(s): L03.90 - Cellulitis, unspecified Status: Acute Assessment and Plan: CEFEPIME AND CLINDAMYCIN IMPROVED CONTINUE TO MONITOR (9) Rhabdomyolysis: Code(s): M62.82 - Rhabdomyolysis Status: Acute Assessment and Plan: keep patient well hydrated, monitor CK level, and renal function Additional Plan Will continue current plan of care and treatment. Will continue with IV antibiotics. Monitor labs and culture. If dialysis catheter is not placed will resume Xarelto. 09/17/2020: creatinine is 4.7 today slightly better than before. Will discuss with Nephrology about the need for dialysis. If dialysis note dated will resume Xarelto. Subjective Date/time seen: 09/20/20 14:47 I FEEL MUCH BETTER Interval history: Follow-up visit in this 49-year-old man with: Significant diastolic noncompliance having been switched to regimen of metoprolol and diltiazem. No other active cardiac problems. Unfortunate patient is also very ill with acute renal failure and appears to have concerning so being treated with aggressive antibiotics. Nephrology consult being placed today as the patient has worsening renal failure and is now significantly hyperkalemic. Feels about the same no new issues. I added Heparin 5000U SC q8h for DVT dosing last night, no CP, remains 4L NC O2, +ROBERTS with any activity, ochoa BiPAP Date of service: Patient is asymptomatic says he feels quite well today is watching television when I entered the room to see him. Cellulitis in the lower extremity looks basically on improved to me. Infectious disease lifestyle consultant notes are reviewed. No cardiovascular issues of note. We were asked to see this gentleman to recommend medical treatment of diastolic noncompliance which was done last week. spoke to the patient at some length about his renal insufficiency. Date of service 09/16/2020: Patient states he is feeling better today. He says
[2020-09-20 17:29] LABS: Glucose Point of Care 186 mg/dl (65-105)
[2020-09-20] MEDS: DAPTOmycin 500 MG in SODIUM CHLORIDE 0.9% IV 50 ML 100 MG IVPB (21:19)
[2020-09-20 21:41] LABS: Glucose Point of Care 171 mg/dl (65-105)
[2020-09-21] VITALS (13 sets, daily range): BP systolic 110–220; BP diastolic 65–90; PULSE 67–88; RESP 18–20; TEMP 36.3–36.7; O2SAT 92–100
[2020-09-21] MEDS: CLINDAMYCIN 600 MG/D5W 50 ML 600 MG/50 ML PIGGYBACK 100 MG IVPB ×3 (05:48→21:13)
[2020-09-21] MEDS: CENTRAL LINE FLUSH 10 ML IV PUSH ×3 (05:49→21:15)
[2020-09-21] MEDS: HEPARIN SODIUM 5,000 UNITS/ML VIAL 5000 UNITS SUB-Q ×3 (05:49→21:10)
[2020-09-21] MEDS: METOPROLOL SUCCINATE EXT REL 25 MG TABCR PO (08:32)
[2020-09-21] MEDS: POLYSACCHARIDE IRON COMPLEX 150 MG CAPSULE PO (08:33)
[2020-09-21] MEDS: GABAPENTIN 300 MG CAPSULE PO ×3 (08:33→17:20)
[2020-09-21] MEDS: LORATADINE 10 MG TABLET PO (08:33)
[2020-09-21] MEDS: INSULIN GLARGINE (*BKC) 100 UNITS/ML 20 UNITS SUB-Q ×2 (08:35→20:29)
[2020-09-21 10:25] LABS: Basophils Absolute Auto 0.1 K/mm3 (0.0-0.1); Basophils Percent Auto 0.6 % (0.2-1.2); Eosinophils Absolute Auto 0.5 K/mm3 (0-0.3); Eosinophils Percent Auto 4.7 % (0-4.4); Hematocrit 32.1 % (42.0-52.0); Hemoglobin 9.5 g/dL (14.0-18.0); Immature Granulocyte Absolute 0.28 K/mm3 (0.00-0.031); Immature Granulocyte Percent A 2.5 % (0-0.5); Lymphocytes Absolute Auto 1.61 K/mm3 (0.9-3.2); Lymphocytes Percent Auto 14.2 % (18.3-44.2); Mean Corpuscular HGB Conc 29.6 g/dl (32-36); Mean Corpuscular Hemoglobin 27.8 pg (26-34); Mean Corpuscular Volume 93.9 fl (80-100); Mean Platelet Volume 11.1 fl (7.4-10.4); Monocytes Absolute Auto 0.9 K/mm3 (0.1-0.6); Monocytes Percent Auto 7.6 % (2.6-8.5); Neutrophils Percent Auto 70.4 % (45.5-73.1); Platelet Count Result 341 k/mm3 (150-375); Red Blood Count 3.42 M/mm3 (4.6-6.20); Red Cell Distribution Width 14.6 % (11.5-14.5); White Blood Count 11.4 K/mm3 (4.5-10.0)
[2020-09-21 10:40] LABS: Albumin Level 3.4 g/dL (3.5-5.1); Anion Gap 5 mmol/L (8-16); Blood Urea Nitrogen 106 mg/dL (9-20); Calcium 8.4 mg/dL (8.4-10.2); Carbon Dioxide 35 mmol/L (22-30); Chloride 101 mmol/L (98-107); Estimated CRCL calculation 56 ml/min; Estimated Glomerular Filt Rate 29; Glucose 208 mg/dL (75-110); Phosphorus 5.3 mg/dL (2.5-4.5); Potassium 4.7 mmol/L (3.4-5.0); Sodium 141 mmol/L (137-145)
--- NOTE | 2020-09-21 12:25 | PM.IMPN ---
Progress Note: A&P Assessment and Plan (1) Bilateral cellulitis of lower leg: Code(s): L03.116 - Cellulitis of left lower limb; L03.115 - Cellulitis of right lower limb Status: Acute Assessment and Plan: IV antibiotics , CT noncontrast to the left lower extremity, did not show evidence of necrotizing fasciitis. consult Infectious Disease Continue with IV antibiotics. Cellulitis slightly better. check culture some improvement CONTINUE LOCAL CARE continue to monitor up to chair (2) SHAKIRA (acute kidney injury): Code(s): N17.9 - Acute kidney failure, unspecified Status: Acute Assessment and Plan: Monitor renal function and electrolytes, creatinine is 2.4 Nephrology Consult noted. checking labs today (3) Pulmonary hypertension: Code(s): I27.20 - Pulmonary hypertension, unspecified Status: Acute Assessment and Plan: Lasix p.r.n. currently on BiPAP at nighttime supplemental oxygen during daytime stable (4) Congestive heart failure: Code(s): I50.9 - Heart failure, unspecified Status: Acute Assessment and Plan: Lasix, beta-emerson, MARKO-inhibitor on hold in the light of his renal dysfunction continue to monitor intake and output Stephens in place (5) Acute and chronic respiratory failure with hypoxia: Code(s): J96.21 - Acute and chronic respiratory failure with hypoxia Status: Acute Assessment and Plan: Wean patient off oxygen as tolerated Treat CHF and COPD improved (6) COPD (chronic obstructive pulmonary disease): Code(s): J44.9 - Chronic obstructive pulmonary disease, unspecified Status: Acute Assessment and Plan: Bronchodilators Steroids Pulmonary consult improved (7) 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 (8) Cellulitis: Code(s): L03.90 - Cellulitis, unspecified Status: Acute Assessment and Plan: CEFEPIME AND CLINDAMYCIN plus daptomycin IMPROVED CONTINUE TO MONITOR Afebrile (9) Rhabdomyolysis: Code(s): M62.82 - Rhabdomyolysis Status: Acute Assessment and Plan: keep patient well hydrated, monitor CK level, and renal function Additional Plan Will continue current plan of care and treatment. Will continue with IV antibiotics. Monitor labs and culture. If dialysis catheter is not placed will resume Xarelto. 09/17/2020: creatinine is 4.7 today slightly better than before. Will discuss with Nephrology about the need for dialysis. If dialysis note dated will resume Xarelto. Subjective Date/time seen: 09/21/20 12:25 I feel much better Interval history: Follow-up visit in this 49-year-old man with: Significant diastolic noncompliance having been switched to regimen of metoprolol and diltiazem. No other active cardiac problems. Unfortunate patient is also very ill with acute renal failure and appears to have concerning so being treated with aggressive antibiotics. Nephrology consult being placed today as the patient has worsening renal failure and is now significantly hyperkalemic. Feels about the same no new issues. I added Heparin 5000U SC q8h for DVT dosing last night, no CP, remains 4L NC O2, +ROBERTS with any activity, ochoa BiPAP Date of service: Patient is asymptomatic says he feels quite well today is watching television when I entered the room to see him. Cellulitis in the lower extremity looks basically on improved to me. Infectious disease data security consultant notes are reviewed. No cardiovascular issues of note. We were asked to see this gentleman to recommend medical treatment of diastolic noncompliance which was done last week. spoke to the patient at some length about his renal insufficiency. Date of
--- NOTE | 2020-09-21 12:36 | PM.PNNEP ---
Progress Note: A&P Assessment and Plan (1) SHAKIRA (acute kidney injury): Code(s): N17.9 - Acute kidney failure, unspecified Status: Acute Assessment and Plan: multifactorial: - infection (cellulitis +/- aspiration pneumonia) - insensible losses (fevers) - fluctuating hemodynamics - hypoxia - necessity of diuretic therapy (on hold currently) renal ultrasound normal urine lytes suggest pre-renal azotemia and urine eosinophis negative high BUN related to catabolic state?? follow trend of repeat labs and urine output - BUN and creatinine slowly improving.... excellent urine output -- suspect diuretic phase of recovering ATN (2) Stage 3a chronic kidney disease: Code(s): N18.31 - Chronic kidney disease, stage 3a Status: Chronic Assessment and Plan: baseline creatinine runs ~ 1.3 - 1.6mg/dl presumably due to HTN and diabetes along with LEONIDAS he may have a new baseline creatinine given the severity of the insult on his hospitalization (3) Hyperkalemia: Code(s): E87.5 - Hyperkalemia Status: Acute Assessment and Plan: doing better due to lower extremity wounds(?) versus just his SHAKIRA/ARF(?) received medical management x 2 with improvement follow trend (4) Acute and chronic respiratory failure with hypoxia: Code(s): J96.21 - Acute and chronic respiratory failure with hypoxia Status: Acute Assessment and Plan: due to combination of LEONIDAS, OHS, CHF, and possibly aspiration pneumonia was requiring high oxygen demands but seems to be improving if not stable now Pulmonary recommendations noted (5) Cellulitis of both lower extremities: Code(s): L03.115 - Cellulitis of right lower limb; L03.116 - Cellulitis of left lower limb Status: Acute Assessment and Plan: true cellulitis versus chronic venous stasis changes versus combination of both imaging studies noted on broad spectrum antibiotics (6) CHF (congestive heart failure): Qualifiers: Heart failure chronicity: unspecified Heart failure type: unspecified Qualified Code(s): I50.9 - Heart failure, unspecified Code(s): I50.9 - Heart failure, unspecified Status: Acute Assessment and Plan: as noted by admission imaging IV lasix on hold follow I/Os (post ATN diuresis ongoing) Cardiology following (7) Diabetes: Code(s): E11.9 - Type 2 diabetes mellitus without complications Status: Acute Assessment and Plan: follow accuchecks on Lantus and SSI Will continue to follow Subjective Date/time seen: 09/21/20 12:36 States he continues to feel better each day; continue to make good urine output (likely post ATN diuresis) in the last several days; respiratory status remains stable if not better; no apparent issues or problems overnight or earlier this AM voiced. Exam Narrative: Exam Narrative: General: large male in NAD Heart: normal S1 and S2; no rub Lungs: coarse with decreased breath sounds at bases Abdomen: soft, nontender, nondistended, positive bowel sounds Extremities: no cyanosis or clubbing; 2+ edema Skin: reduced erythema bilaterally on top of chronic thickened skin changes (L>R) on LEs Objective Data Vital Signs Vital Signs: Vital Signs Temp Pulse Resp BP Pulse Ox 09/21/20 10:00 36.3 C L 75 18 152/66 H 98 09/21/20 08:32 78 09/21/20 08:30 88 18 97 09/21/20 04:00 36.6 C 67 20 154/69 H 97 09/21/20 00:43 36.7 C 77 20 110/76 94 09/21/20 00:00 74 09/20/20 23:25 74 14 94 09/20/20 20:00 36.3 C L 77 20 159/70 H 98 09/20/20 16:00 36.9 C 76 18 150/58 H 94 Intake/Output Intake/Output: Intake & Output 09/18/20 09/19/20 09/20/20 09/21/20 23:59 23:59 23:59 23:59 Intake Total 2090 2100 1530 890 Output Total 2750 3300 3800 1950 Balance -977 -6050 -2270 -1060 M
--- NOTE | 2020-09-21 12:36 | P.PNNP_ITS ---
Progress Note: A&P Assessment and Plan (1) SHAKIRA (acute kidney injury): Code(s): N17.9 - Acute kidney failure, unspecified Status: Acute Assessment and Plan: * multifactorial: - infection (cellulitis +/- aspiration pneumonia) - insensible losses (fevers) - fluctuating hemodynamics - hypoxia - necessity of diuretic therapy (on hold currently) * renal ultrasound normal * urine lytes suggest pre-renal azotemia and urine eosinophis negative * high BUN related to catabolic state?? * follow trend of repeat labs and urine output - BUN and creatinine slowly improving.... * excellent urine output -- suspect diuretic phase of recovering ATN (2) Stage 3a chronic kidney disease: Code(s): N18.31 - Chronic kidney disease, stage 3a Status: Chronic Assessment and Plan: * baseline creatinine runs ~ 1.3 - 1.6mg/dl * presumably due to HTN and diabetes along with LEONIDAS * he may have a new baseline creatinine given the severity of the insult on his hospitalization (3) Hyperkalemia: Code(s): E87.5 - Hyperkalemia Status: Acute Assessment and Plan: * doing better * due to lower extremity wounds(?) versus just his SHAKIRA/ARF(?) * received medical management x 2 with improvement * follow trend (4) Acute and chronic respiratory failure with hypoxia: Code(s): J96.21 - Acute and chronic respiratory failure with hypoxia Status: Acute Assessment and Plan: * due to combination of LEONIDAS, OHS, CHF, and possibly aspiration pneumonia * was requiring high oxygen demands but seems to be improving if not stable now * Pulmonary recommendations noted (5) Cellulitis of both lower extremities: Code(s): L03.115 - Cellulitis of right lower limb; L03.116 - Cellulitis of left lower limb Status: Acute Assessment and Plan: * true cellulitis versus chronic venous stasis changes versus combination of both * imaging studies noted * on broad spectrum antibiotics (6) CHF (congestive heart failure): Qualifiers: Heart failure chronicity: unspecified Heart failure type: unspecified Qualified Code(s): I50.9 - Heart failure, unspecified Code(s): I50.9 - Heart failure, unspecified Status: Acute Assessment and Plan: * as noted by admission imaging * IV lasix on hold * follow I/Os (post ATN diuresis ongoing) * Cardiology following (7) Diabetes: Code(s): E11.9 - Type 2 diabetes mellitus without complications Status: Acute Assessment and Plan: * follow accuchecks * on Lantus and SSI Will continue to follow Subjective Date/time seen: 09/21/20 12:36 States he continues to feel better each day; continue to make good urine output (likely post ATN diuresis) in the last several days; respiratory status remains stable if not better; no apparent issues or problems overnight or earlier this AM voiced. Exam 2 Narrative: Exam Narrative: General: large male in NAD Heart: normal S1 and S2; no rub Lungs: coarse with decreased breath sounds at bases Abdomen: soft, nontender, nondistended, positive bowel sounds Extremities: no cyanosis or clubbing; 2+ edema Skin: reduced erythema bilaterally on top of chronic thickened skin changes (L>R) on LEs Objective Data Vital Signs Vital Signs: Vital Signs Temp Pulse Resp BP Pulse Ox 09/21/20 10:00 36.3 C L 75
[2020-09-21 17:16] LABS: Glucose Point of Care 139 mg/dl (65-105)
[2020-09-21 19:22] LABS: Glucose Point of Care 189 mg/dl (65-105)
[2020-09-21 19:22] LABS: Glucose Point of Care 150 mg/dl (65-105)
[2020-09-21 21:18] LABS: Glucose Point of Care 164 mg/dl (65-105)
[2020-09-22] VITALS (15 sets, daily range): BP systolic 148–172; BP diastolic 66–77; PULSE 62–83; RESP 12–23; TEMP 36.4–36.5; O2SAT 85–98
[2020-09-22] MEDS: CLINDAMYCIN 600 MG/D5W 50 ML 600 MG/50 ML PIGGYBACK 100 MG IVPB ×3 (05:24→23:01)
[2020-09-22] MEDS: HEPARIN SODIUM 5,000 UNITS/ML VIAL 5000 UNITS SUB-Q ×3 (05:41→22:10)
[2020-09-22] MEDS: CENTRAL LINE FLUSH 10 ML IV PUSH ×3 (05:48→22:11)
[2020-09-22 05:50] LABS: Basophils Absolute Auto 0.1 K/mm3 (0.0-0.1); Basophils Percent Auto 0.5 % (0.2-1.2); Eosinophils Absolute Auto 0.5 K/mm3 (0-0.3); Eosinophils Percent Auto 4.9 % (0-4.4); Hematocrit 30.3 % (42.0-52.0); Immature Granulocyte Absolute 0.14 K/mm3 (0.00-0.031); Immature Granulocyte Percent A 1.3 % (0-0.5); Lymphocytes Absolute Auto 2.01 K/mm3 (0.9-3.2); Lymphocytes Percent Auto 18.2 % (18.3-44.2); Mean Corpuscular HGB Conc 29.7 g/dl (32-36); Mean Corpuscular Hemoglobin 28.1 pg (26-34); Mean Corpuscular Volume 94.7 fl (80-100); Mean Platelet Volume 10.9 fl (7.4-10.4); Monocytes Absolute Auto 1.1 K/mm3 (0.1-0.6); Monocytes Percent Auto 9.8 % (2.6-8.5); Neutrophils Absolute Auto 7.2 K/mm3 (1.3-6.7); Neutrophils Percent Auto 65.3 % (45.5-73.1); Platelet Count Result 331 k/mm3 (150-375); Red Cell Distribution Width 14.5 % (11.5-14.5)
[2020-09-22 06:09] LABS: Albumin Level 3.2 g/dL (3.5-5.1); Anion Gap 3 mmol/L (8-16); Blood Urea Nitrogen 85 mg/dL (9-20); Calcium 8.4 mg/dL (8.4-10.2); Carbon Dioxide 35 mmol/L (22-30); Chloride 102 mmol/L (98-107); Estimated CRCL calculation 56 ml/min; Estimated Glomerular Filt Rate 29; Glucose 141 mg/dL (75-110); Phosphorus 4.9 mg/dL (2.5-4.5); Potassium 4.7 mmol/L (3.4-5.0); Sodium 140 mmol/L (137-145)
[2020-09-22 06:48] LABS: Hypochromasia 1+ (NORMAL); Platelet Estimate Adequate (Adequate)
[2020-09-22 06:49] LABS: Large Platelets Present
[2020-09-22] MEDS: METOPROLOL SUCCINATE EXT REL 25 MG TABCR PO (09:29)
[2020-09-22 09:31] LABS: Glucose Point of Care 122 mg/dl (65-105)
[2020-09-22] MEDS: POLYSACCHARIDE IRON COMPLEX 150 MG CAPSULE PO (09:32)
[2020-09-22] MEDS: GABAPENTIN 300 MG CAPSULE PO ×3 (09:32→17:41)
[2020-09-22] MEDS: LORATADINE 10 MG TABLET PO (09:32)
[2020-09-22] MEDS: INSULIN GLARGINE (*BKC) 100 UNITS/ML 20 UNITS SUB-Q ×2 (09:33→22:24)
--- NOTE | 2020-09-22 10:17 | PCNFU ---
Nutrition Follow-Up Complete: Inadequate oral intake related to poor appetite as evidenced by patient's statement and average intake of 10% of meals. Goal: Have patient meet estimated nutritional needs. Patient is progressing towards goal. We will continue current goal. Pt current nutrition is Renal Dialysis Diet with Nepro BID. Last recorded weight is 172.2 kg. No new weight to report, recommend new weight. Bowel Motility:+BM report 09/21 Labs Reviewed:PO4 4.9,Glu 141,BUN 85,GFR 29,Alb 3.2,Hgb 9.0,Hct 30.3 Meds Noted:Claritin,Lasix,Lantus,Toprol,Heparin, Niferex-150, Cardizem. Additional Notes: Patient seen today for nutrition follow up. Patient currently on a Renal Dialysis diet with Nepro BID. Good urine output. Nephrology is following. Patient had been on Ensure Enlive changed to Nepro BID, more suitable for CKD. Agree with diet orders. Monitoring:Will follow up in 5 days.
--- NOTE | 2020-09-22 10:27 | P.PNNP_ITS ---
Progress Note: A&P Assessment and Plan (1) SHAKIRA (acute kidney injury): Code(s): N17.9 - Acute kidney failure, unspecified Status: Acute Assessment and Plan: * multifactorial: - infection (cellulitis +/- aspiration pneumonia) - insensible losses (fevers) - fluctuating hemodynamics - hypoxia - necessity of diuretic therapy (on hold currently) * renal ultrasound normal * urine lytes suggest pre-renal azotemia and urine eosinophis negative * probably ATN. * Creatinine seems to improving and urine output is very good. (2) Stage 3a chronic kidney disease: Code(s): N18.31 - Chronic kidney disease, stage 3a Status: Chronic Assessment and Plan: * baseline creatinine runs ~ 1.3 - 1.6mg/dl * presumably due to HTN and diabetes along with LEONIDAS * he may have a new baseline creatinine given the severity of the insult on his hospitalization * Will follow his creatinine as it improves. (3) Hyperkalemia: Code(s): E87.5 - Hyperkalemia Status: Acute Assessment and Plan: * Potassium normal today. (4) Acute and chronic respiratory failure with hypoxia: Code(s): J96.21 - Acute and chronic respiratory failure with hypoxia Status: Acute Assessment and Plan: * Improved. * Pulmonary recommendations noted (5) Cellulitis of both lower extremities: Code(s): L03.115 - Cellulitis of right lower limb; L03.116 - Cellulitis of left lower limb Status: Acute Assessment and Plan: * true cellulitis versus chronic venous stasis changes versus combination of both * imaging studies noted * on broad spectrum antibiotics (6) CHF (congestive heart failure): Qualifiers: Heart failure chronicity: unspecified Heart failure type: unspecified Qualified Code(s): I50.9 - Heart failure, unspecified Code(s): I50.9 - Heart failure, unspecified Status: Acute Assessment and Plan: * as noted by admission imaging * IV lasix on hold * follow I/Os (post ATN diuresis ongoing) * Cardiology following (7) Diabetes: Code(s): E11.9 - Type 2 diabetes mellitus without complications Status: Acute Assessment and Plan: * follow accuchecks * on Lantus and SSI Subjective Date/time seen: 09/22/20 10:27 Interval history: Ulices is alert today. He feels okay. Eating okay. Exam Narrative: Exam Narrative: General: large male in NAD Heart: normal S1 and S2; no rub Or gallop Lungs: coarse with decreased breath sounds at bases Abdomen: soft, nontender, nondistended, positive bowel sounds Extremities: no cyanosis or clubbing; 2+ edema Skin: chronic venous stasis dermatitis on lower extremities. Objective Data Vital Signs Vital Signs: Vital Signs - 24 hr 09/21/20 12:00 09/21/20 14:00 09/21/20 14:16 Temperature 36.4 C Pulse Rate 70 73 Respiratory Rate 18 Blood Pressure 150/67 H Pulse Oximetry 100 92 09/21/20 16:00 09/21/20 20:00 09/21/20 20:30 Temperature 36.4 C Pulse Rate 74 78 Respiratory Rate 18 Blood Pressure 220/90 H 162/65 H Pulse Oximetry 98 09/22/20 00:00 09/22/20 00:08 09/22/20 02:23 Temperature 36.5 C Pulse Rate 75 78 81 Respir
--- NOTE | 2020-09-22 10:27 | PM.PNNEP ---
Progress Note: A&P Assessment and Plan (1) SHAKIRA (acute kidney injury): Code(s): N17.9 - Acute kidney failure, unspecified Status: Acute Assessment and Plan: multifactorial: - infection (cellulitis +/- aspiration pneumonia) - insensible losses (fevers) - fluctuating hemodynamics - hypoxia - necessity of diuretic therapy (on hold currently) renal ultrasound normal urine lytes suggest pre-renal azotemia and urine eosinophis negative probably ATN. Creatinine seems to improving and urine output is very good. (2) Stage 3a chronic kidney disease: Code(s): N18.31 - Chronic kidney disease, stage 3a Status: Chronic Assessment and Plan: baseline creatinine runs ~ 1.3 - 1.6mg/dl presumably due to HTN and diabetes along with LEONIDAS he may have a new baseline creatinine given the severity of the insult on his hospitalization Will follow his creatinine as it improves. (3) Hyperkalemia: Code(s): E87.5 - Hyperkalemia Status: Acute Assessment and Plan: Potassium normal today. (4) Acute and chronic respiratory failure with hypoxia: Code(s): J96.21 - Acute and chronic respiratory failure with hypoxia Status: Acute Assessment and Plan: Improved. Pulmonary recommendations noted (5) Cellulitis of both lower extremities: Code(s): L03.115 - Cellulitis of right lower limb; L03.116 - Cellulitis of left lower limb Status: Acute Assessment and Plan: true cellulitis versus chronic venous stasis changes versus combination of both imaging studies noted on broad spectrum antibiotics (6) CHF (congestive heart failure): Qualifiers: Heart failure chronicity: unspecified Heart failure type: unspecified Qualified Code(s): I50.9 - Heart failure, unspecified Code(s): I50.9 - Heart failure, unspecified Status: Acute Assessment and Plan: as noted by admission imaging IV lasix on hold follow I/Os (post ATN diuresis ongoing) Cardiology following (7) Diabetes: Code(s): E11.9 - Type 2 diabetes mellitus without complications Status: Acute Assessment and Plan: follow accuchecks on Lantus and SSI Subjective Date/time seen: 09/22/20 10:27 Interval history: Ulices is alert today. He feels okay. Eating okay. Exam Narrative: Exam Narrative: General: large male in NAD Heart: normal S1 and S2; no rub Or gallop Lungs: coarse with decreased breath sounds at bases Abdomen: soft, nontender, nondistended, positive bowel sounds Extremities: no cyanosis or clubbing; 2+ edema Skin: chronic venous stasis dermatitis on lower extremities. Objective Data Vital Signs Vital Signs: Vital Signs - 24 hr 09/21/20 12:00 09/21/20 14:00 09/21/20 14:16 Temperature 36.4 C Pulse Rate 70 73 Respiratory Rate 18 Blood Pressure 150/67 H Pulse Oximetry 100 92 09/21/20 16:00 09/21/20 20:00 09/21/20 20:30 Temperature 36.4 C Pulse Rate 74 78 Respiratory Rate 18 Blood Pressure 220/90 H 162/65 H Pulse Oximetry 98 09/22/20 00:00 09/22/20 00:08 09/22/20 02:23 Temperature 36.5 C Pulse Rate 75 78 81 Respiratory Rate 18 14 12 Blood Pressure 162/77 H Pulse Oximetry 97 95 94 09/22/20 04:00 09/22/20 05:27 09/22/20 08:00 Temperature 36.4 C 36.4 C Pulse Rate 76 83 74 Respiratory Rate 18 16 Blood Pressure 170/73 H 148/70 H Pulse Oximetry 93 97 09/22/20 09:29 Temperature Pulse Rate 75 Respiratory Rate Blood Pressure Pulse Oximetry Intake/Output Intake/Output: Intake & Output 09/19/20 09/20/20 09/21/20 09/22/20 23:59 23:59 23:59 23:59 Intake Total 2100 1530 2280 600 Output Total 3300 3800 4650 2100 Balance 1200 -2271 -5270 -9986 Meds/Results Medications: Active Medications Generic Name Dose Route Start Last Admin Trade Name Freq PRN
[2020-09-22 11:55] LABS: Glucose Point of Care 163 mg/dl (65-105)
--- NOTE | 2020-09-22 13:10 | PM.IMPN ---
Progress Note: A&P Assessment and Plan (1) Bilateral cellulitis of lower leg: Code(s): L03.116 - Cellulitis of left lower limb; L03.115 - Cellulitis of right lower limb Status: Acute Assessment and Plan: IV antibiotics CT noncontrast to the left lower extremity, did not show evidence of necrotizing fasciitis. consult Infectious Disease Continue with IV antibiotics. Cellulitis slightly better. check culture some improvement CONTINUE LOCAL CARE continue to monitor up to chair (2) SHAKIRA (acute kidney injury): Code(s): N17.9 - Acute kidney failure, unspecified Status: Acute Assessment and Plan: Monitor renal function and electrolytes, creatinine is 2.4 Nephrology Consult noted. (3) Pulmonary hypertension: Code(s): I27.20 - Pulmonary hypertension, unspecified Status: Acute Assessment and Plan: Lasix p.r.n. currently on BiPAP at nighttime supplemental oxygen during daytime stable (4) Congestive heart failure: Code(s): I50.9 - Heart failure, unspecified Status: Acute Assessment and Plan: Lasix, beta-emerson, MARKO-inhibitor on hold in the light of his renal dysfunction continue to monitor intake and output Stephens in place (5) Acute and chronic respiratory failure with hypoxia: Code(s): J96.21 - Acute and chronic respiratory failure with hypoxia Status: Acute Assessment and Plan: Wean patient off oxygen as tolerated Treat CHF and COPD improved (6) COPD (chronic obstructive pulmonary disease): Code(s): J44.9 - Chronic obstructive pulmonary disease, unspecified Status: Acute Assessment and Plan: Bronchodilators Steroids Pulmonary consult improved (7) 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 (8) Cellulitis: Code(s): L03.90 - Cellulitis, unspecified Status: Acute Assessment and Plan: CEFEPIME AND CLINDAMYCIN plus daptomycin IMPROVED CONTINUE TO MONITOR Afebrile (9) Rhabdomyolysis: Code(s): M62.82 - Rhabdomyolysis Status: Acute Assessment and Plan: keep patient well hydrated, monitor CK level, and renal function Additional Plan Will continue current plan of care and treatment. Will continue with IV antibiotics. Monitor labs and culture. If dialysis catheter is not placed will resume Xarelto. 09/17/2020: creatinine is 4.7 today slightly better than before. Will discuss with Nephrology about the need for dialysis. If dialysis note dated will resume Xarelto. Subjective Date/time seen: 09/22/20 13:10 I FEEL WELL Interval history: Ulices is alert today. He feels okay. Eating okay. Review of Systems Review of Systems: ROS unobtainable: Yes unobtainable due to mental status ENT: Reports Normal hearing present Neurologic: Reports Normal hearing present Exam Narrative: Exam Narrative: LAYING IN BED Const: General: cooperative, comfortable, no acute distress, well developed, alert, awake, Physically active and ill appearing chronically Nutritional Appearance: obese morbidly obese and overweight Orientation/consciousness: oriented to person, oriented to place and oriented to time Limitations: no limitations HENMT: Head: normal to inspection, No palpable skull fracture present, normocephalic and atraumatic Ears: hearing grossly normal bilaterally and external ears normal General nose exam: Normal external nose present and Normal nares present Face and sinus: normal facial exam Mouth: Yes Normal oral and palatal mucosa present Throat: posterior oropharynx normal Eyes: General: appearance normal, both eyes and all related structures Alignment and Position: alignment normal Periorbital: socorro
[2020-09-22 16:25] LABS: Glucose Point of Care 133 mg/dl (65-105)
[2020-09-22] MEDS: PHARMACIST COMMUNICATION ORDER 1 EACH XX (17:42)
--- NOTE | 2020-09-22 18:45 | PC.NURSE ---
On 09/22/20, the LP RN, Rosa Sprague, provided care and completed [facility] documentation on this patient. I have reviewed the LP RN's documentation and agree with the findings.
[2020-09-22] MEDS: DAPTOmycin 500 MG in SODIUM CHLORIDE 0.9% IV 50 ML 100 MG IVPB (22:09)
[2020-09-22 22:22] LABS: Glucose Point of Care 158 mg/dl (65-105)
[2020-09-23] VITALS (12 sets, daily range): BP systolic 136–188; BP diastolic 61–94; PULSE 57–78; RESP 16–21; TEMP 36.1–36.7; O2SAT 96–100
[2020-09-23] MEDS: CLINDAMYCIN 600 MG/D5W 50 ML 600 MG/50 ML PIGGYBACK 100 MG IVPB ×3 (05:04→21:23)
[2020-09-23] MEDS: HEPARIN SODIUM 5,000 UNITS/ML VIAL 5000 UNITS SUB-Q ×3 (05:05→20:26)
[2020-09-23] MEDS: CENTRAL LINE FLUSH 10 ML IV PUSH ×4 (05:05→21:24)
[2020-09-23 05:10] LABS: Basophils Absolute Auto 0.1 K/mm3 (0.0-0.1); Basophils Percent Auto 0.8 % (0.2-1.2); Eosinophils Absolute Auto 0.5 K/mm3 (0-0.3); Eosinophils Percent Auto 5.3 % (0-4.4); Hematocrit 29.6 % (42.0-52.0); Hemoglobin 8.8 g/dL (14.0-18.0); Immature Granulocyte Absolute 0.12 K/mm3 (0.00-0.031); Immature Granulocyte Percent A 1.3 % (0-0.5); Lymphocytes Absolute Auto 2.09 K/mm3 (0.9-3.2); Lymphocytes Percent Auto 22.6 % (18.3-44.2); Mean Corpuscular HGB Conc 29.7 g/dl (32-36); Mean Corpuscular Hemoglobin 28.4 pg (26-34); Mean Corpuscular Volume 95.5 fl (80-100); Mean Platelet Volume 10.6 fl (7.4-10.4); Monocytes Absolute Auto 0.9 K/mm3 (0.1-0.6); Monocytes Percent Auto 9.4 % (2.6-8.5); Neutrophils Absolute Auto 5.6 K/mm3 (1.3-6.7); Neutrophils Percent Auto 60.6 % (45.5-73.1); Platelet Count Result 281 k/mm3 (150-375); Red Cell Distribution Width 14.6 % (11.5-14.5); White Blood Count 9.2 K/mm3 (4.5-10.0)
[2020-09-23 05:34] LABS: Albumin Level 3.2 g/dL (3.5-5.1); Anion Gap 4 mmol/L (8-16); Blood Urea Nitrogen 70 mg/dL (9-20); Calcium 8.6 mg/dL (8.4-10.2); Carbon Dioxide 35 mmol/L (22-30); Chloride 101 mmol/L (98-107); Estimated CRCL calculation 56 ml/min; Estimated Glomerular Filt Rate 29; Glucose 156 mg/dL (75-110); Phosphorus 5.3 mg/dL (2.5-4.5); Potassium 4.7 mmol/L (3.4-5.0); Sodium 140 mmol/L (137-145)
[2020-09-23 05:49] LABS: Platelet Estimate Adequate (Adequate)
[2020-09-23 05:50] LABS: Hypochromasia 1+ (NORMAL); Microcytosis 1+ (NORMAL)
--- NOTE | 2020-09-23 07:48 | P.PNNP_ITS ---
Progress Note: A&P Assessment and Plan (1) SHAKIRA (acute kidney injury): Code(s): N17.9 - Acute kidney failure, unspecified Status: Acute Assessment and Plan: * multifactorial: - infection (cellulitis +/- aspiration pneumonia) - insensible losses (fevers) - fluctuating hemodynamics - hypoxia - necessity of diuretic therapy (on hold currently) * renal ultrasound normal * urine lytes suggest pre-renal azotemia and urine eosinophis negative * probably ATN. * His creatinine is now 2.4 about 3 days in a row. This may be a new baseline. He may have some improvement yet to come over the next few weeks. (2) Stage 3a chronic kidney disease: Code(s): N18.31 - Chronic kidney disease, stage 3a Status: Chronic Assessment and Plan: * baseline creatinine runs ~ 1.3 - 1.6mg/dl * presumably due to HTN and diabetes along with LEONIDAS * he may have a new baseline creatinine of 2.4. (3) Hyperkalemia: Code(s): E87.5 - Hyperkalemia Status: Acute Assessment and Plan: * Resolved (4) Acute and chronic respiratory failure with hypoxia: Code(s): J96.21 - Acute and chronic respiratory failure with hypoxia Status: Acute Assessment and Plan: * Improved. * Pulmonary recommendations noted (5) Cellulitis of both lower extremities: Code(s): L03.115 - Cellulitis of right lower limb; L03.116 - Cellulitis of left lower limb Status: Acute Assessment and Plan: * he has cellulitis. * White count is normal. * He is afebrile. * on broad spectrum antibiotics (6) CHF (congestive heart failure): Qualifiers: Heart failure chronicity: unspecified Heart failure type: unspecified Qualified Code(s): I50.9 - Heart failure, unspecified Code(s): I50.9 - Heart failure, unspecified Status: Acute Assessment and Plan: * as noted by admission imaging * IV lasix on hold * Intake output still negative. * He will probably need Lasix down the line once his post ATN diuresis finishes. * Cardiology following (7) Diabetes: Code(s): E11.9 - Type 2 diabetes mellitus without complications Status: Acute Assessment and Plan: * follow accuchecks * on Lantus and SSI Subjective Date/time seen: 09/23/20 07:48 Interval history: Ulices is alert today. He feels okay. comfortable in bed. He is on BiPAP finishing his slumber. Exam Narrative: Exam Narrative: General: large male in NAD Heart: normal S1 and S2; no rub or gallop Lungs: coarse with decreased breath sounds at bases Abdomen: soft, nontender, nondistended, positive bowel sounds Extremities: 2+ edema Skin: chronic venous stasis dermatitis on lower extremities. Objective Data Vital Signs Vital Signs: Vital Signs - 24 hr 09/22/20 08:00 09/22/20 09:29 09/22/20 09:35 Temperature 36.4 C Pulse Rate 71 75 Respiratory Rate 16 Blood Pressure 148/70 H Pulse Oximetry 97 85 L 09/22/20 09:36 09/22/20 12:00 09/22/20 16:00 Temperature 36.4 C Pulse Rate 70 62 Respiratory Rate 12 Blood Pressure 162/66 H Pulse Oximetry 96 98 09/22/20 20:00 09/22/20 20:49 09/22/20 23:39 Temperature 36.4 C L
--- NOTE | 2020-09-23 07:48 | PM.PNNEP ---
Progress Note: A&P Assessment and Plan (1) SHAKIRA (acute kidney injury): Code(s): N17.9 - Acute kidney failure, unspecified Status: Acute Assessment and Plan: multifactorial: - infection (cellulitis +/- aspiration pneumonia) - insensible losses (fevers) - fluctuating hemodynamics - hypoxia - necessity of diuretic therapy (on hold currently) renal ultrasound normal urine lytes suggest pre-renal azotemia and urine eosinophis negative probably ATN. His creatinine is now 2.4 about 3 days in a row. This may be a new baseline. He may have some improvement yet to come over the next few weeks. (2) Stage 3a chronic kidney disease: Code(s): N18.31 - Chronic kidney disease, stage 3a Status: Chronic Assessment and Plan: baseline creatinine runs ~ 1.3 - 1.6mg/dl presumably due to HTN and diabetes along with LEONIDAS he may have a new baseline creatinine of 2.4. (3) Hyperkalemia: Code(s): E87.5 - Hyperkalemia Status: Acute Assessment and Plan: Resolved (4) Acute and chronic respiratory failure with hypoxia: Code(s): J96.21 - Acute and chronic respiratory failure with hypoxia Status: Acute Assessment and Plan: Improved. Pulmonary recommendations noted (5) Cellulitis of both lower extremities: Code(s): L03.115 - Cellulitis of right lower limb; L03.116 - Cellulitis of left lower limb Status: Acute Assessment and Plan: he has cellulitis. White count is normal. He is afebrile. on broad spectrum antibiotics (6) CHF (congestive heart failure): Qualifiers: Heart failure chronicity: unspecified Heart failure type: unspecified Qualified Code(s): I50.9 - Heart failure, unspecified Code(s): I50.9 - Heart failure, unspecified Status: Acute Assessment and Plan: as noted by admission imaging IV lasix on hold Intake output still negative. He will probably need Lasix down the line once his post ATN diuresis finishes. Cardiology following (7) Diabetes: Code(s): E11.9 - Type 2 diabetes mellitus without complications Status: Acute Assessment and Plan: follow accuchecks on Lantus and SSI Subjective Date/time seen: 09/23/20 07:48 Interval history: Ulices is alert today. He feels okay. comfortable in bed. He is on BiPAP finishing his slumber. Exam Narrative: Exam Narrative: General: large male in NAD Heart: normal S1 and S2; no rub or gallop Lungs: coarse with decreased breath sounds at bases Abdomen: soft, nontender, nondistended, positive bowel sounds Extremities: 2+ edema Skin: chronic venous stasis dermatitis on lower extremities. Objective Data Vital Signs Vital Signs: Vital Signs - 24 hr 09/22/20 08:00 09/22/20 09:29 09/22/20 09:35 Temperature 36.4 C Pulse Rate 71 75 Respiratory Rate 16 Blood Pressure 148/70 H Pulse Oximetry 97 85 L 09/22/20 09:36 09/22/20 12:00 09/22/20 16:00 Temperature 36.4 C Pulse Rate 70 62 Respiratory Rate 12 Blood Pressure 162/66 H Pulse Oximetry 96 98 09/22/20 20:00 09/22/20 20:49 09/22/20 23:39 Temperature 36.4 C L Pulse Rate 72 73 69 Respiratory Rate 16 23 H Blood Pressure 172/75 H Pulse Oximetry 95 98 98 09/22/20 23:42 09/23/20 00:00 09/23/20 04:00 Temperature 36.4 C Pulse Rate 63 57 L Respiratory Rate 18 Blood Pressure 136/68 Pulse Oximetry 98 100 09/23/20 05:16 Temperature 36.7 C Pulse Rate 62 Respiratory Rate 16 Blood Pressure 144/67 H Pulse Oximetry 96 Intake/Output Intake/Output: Intake & Output 09/20/20 09/21/20 09/22/20 09/23/20 23:59 23:59 23:59 23:59 Intake Total 1530 2280 2170 550 Output Total 3800 4650 3800 2250 Balance -8322 -4333 -8687 -3774 Meds/Results Medications: Active Medications Generic Name Dose Route Start
[2020-09-23] MEDS: POLYSACCHARIDE IRON COMPLEX 150 MG CAPSULE PO (08:40)
[2020-09-23] MEDS: METOPROLOL SUCCINATE EXT REL 25 MG TABCR PO (08:41)
[2020-09-23] MEDS: LORATADINE 10 MG TABLET PO (08:41)
[2020-09-23] MEDS: GABAPENTIN 300 MG CAPSULE PO ×3 (08:41→16:37)
--- NOTE | 2020-09-23 09:09 | PM.PNCARD ---
Progress Note: A&P Assessment and Plan (1) Congestive heart failure: Code(s): I50.9 - Heart failure, unspecified Status: Acute Assessment and Plan: He has grade II diastolic dysfunction demonstrated by echocardiogram in February 2020. EF 65-70%. Clinically not significantly decompensated in heart failure. His medical regimen was adjusted to support his diastolic noncompliace - on diltiazem and metoprolol. Monitor volume status closely. Nephrology following closely. Diuretics remain on hold. 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 Patient must receive DVT prophylaxis or re-initiate systemic anticoagulation. Given lower extremity wounds SCDs unlikely to be tolerated. Heparin 5000 units subcutaneous q.8 hours at minimum But must be cautious due to the development of thrombocytopenia. (3) Thrombocytopenia: Code(s): D69.6 - Thrombocytopenia, unspecified Status: Acute Assessment and Plan: Stable. Monitor platelet count and bleeding closely. H&H stable. DVT prophylaxis while he is off A/C. If no plans for HD or access resume A/C. Eliquis 5mg BID most likely. I would appreciate Nephrology input in this regard - since renal function improving and need for HD catheter placement not necessary at this time, appropriate to restart A/C. If platelet counts continued to drop will need to discontinue heparin. - Eliquis may be a better option over Xarelto due to renal failure and CrCl 24 GFR 10. (4) Essential hypertension: Code(s): I10 - Essential (primary) hypertension Status: Acute Assessment and Plan: Continue to monitor, blood pressure reasonably controlled at this time. (5) Obesity hypoventilation syndrome: Code(s): E66.2 - Morbid (severe) obesity with alveolar hypoventilation Status: Acute Assessment and Plan: On BiPAP at [facility] and currently on 2L O2 per nasal cannula. Pulm following. Additional Plan From a cardiac standpoint, he is stable And does not have any active cardiac concerns. Placed on diltiazem and metoprolol earlier in his hospitalization for management of his diastolic noncompliance. We will continue to follow along with this patient's care and see him on an as needed basis. Subjective Date/time seen: 09/23/20 09:09 Interval history: Follow-up visit in this 49-year-old man with: Significant diastolic noncompliance having been switched to regimen of metoprolol and diltiazem. No other active cardiac problems. Unfortunate patient is also very ill with acute renal failure and appears to have concerning so being treated with aggressive antibiotics. Nephrology consult being placed today as the patient has worsening renal failure and is now significantly hyperkalemic. Feels about the same no new issues. I added Heparin 5000U SC q8h for DVT dosing last night, no CP, remains 4L NC O2, +ROBERTS with any activity, ochoa BiPAP Date of service: Patient is asymptomatic says he feels quite well today is watching television when I entered the room to see him. Cellulitis in the lower extremity looks basically on improved to me. Infectious disease consultant technology notes are reviewed. No cardiovascular issues of note. We were asked to see this gentleman to recommend medical treatment of diastolic noncompliance which was done last week. spoke to the patient at some length about his renal insufficiency. Date of service 09/16/2020: Patient states he is feeling better today. He says he got up to the chair yesterday and did not have any issues with his breathing, however it states it was difficult due to some discomfort in his lower extremities and physical deconditioning. Discussed with him th
[2020-09-23] MEDS: INSULIN GLARGINE (*BKC) 100 UNITS/ML 20 UNITS SUB-Q ×2 (09:58→20:31)
[2020-09-23 09:59] LABS: Glucose Point of Care 135 mg/dl (65-105)
[2020-09-23 13:13] LABS: Glucose Point of Care 187 mg/dl (65-105)
--- NOTE | 2020-09-23 13:19 | PM.IMPN ---
Progress Note: A&P Assessment and Plan (1) Bilateral cellulitis of lower leg: Code(s): L03.116 - Cellulitis of left lower limb; L03.115 - Cellulitis of right lower limb Status: Acute Assessment and Plan: IV antibiotics CT noncontrast to the left lower extremity, did not show evidence of necrotizing fasciitis. consult Infectious Disease Continue with IV antibiotics. Cellulitis slightly better. check culture some improvement CONTINUE LOCAL CARE continue to monitor up to chair (2) SHAKIRA (acute kidney injury): Code(s): N17.9 - Acute kidney failure, unspecified Status: Acute Assessment and Plan: Monitor renal function and electrolytes, creatinine is 2.4 Nephrology Consult noted. (3) Pulmonary hypertension: Code(s): I27.20 - Pulmonary hypertension, unspecified Status: Acute Assessment and Plan: Lasix p.r.n. currently on BiPAP at nighttime supplemental oxygen during daytime stable (4) Congestive heart failure: Code(s): I50.9 - Heart failure, unspecified Status: Acute Assessment and Plan: Lasix, beta-emerson, MARKO-inhibitor on hold in the light of his renal dysfunction continue to monitor intake and output Stephens in place CARDIOLOGY NOTE APPRECIATED (5) Acute and chronic respiratory failure with hypoxia: Code(s): J96.21 - Acute and chronic respiratory failure with hypoxia Status: Acute Assessment and Plan: Wean patient off oxygen as tolerated Treat CHF and COPD improved WEARING BIPAP AT NIGHTTIME ON ROOM AIR AT THE TIME OF MY VISIT (6) COPD (chronic obstructive pulmonary disease): Code(s): J44.9 - Chronic obstructive pulmonary disease, unspecified Status: Acute Assessment and Plan: Bronchodilators Steroids Pulmonary consult improved (7) 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: Code(s): I82.5Y3 - Chronic embolism and thrombosis of unspecified deep veins of proximal lower extremity, bilateral Status: Acute Assessment and Plan: WITH RESTART ELIQUIS WAITING ON FURTHER RECOMMENDATIONS FROM NEPHROLOGY (8) Cellulitis: Code(s): L03.90 - Cellulitis, unspecified Status: Acute Assessment and Plan: CEFEPIME AND CLINDAMYCIN plus daptomycin IMPROVED CONTINUE TO MONITOR Afebrile AWAITING FURTHER RECOMMENDATIONS FROM ID (9) Rhabdomyolysis: Code(s): M62.82 - Rhabdomyolysis Status: Acute Assessment and Plan: keep patient well hydrated, monitor CK level, and renal function Additional Plan Will continue current plan of care and treatment. Will continue with IV antibiotics. Monitor labs and culture. If dialysis catheter is not placed will resume Xarelto. 09/17/2020: creatinine is 4.7 today slightly better than before. Will discuss with Nephrology about the need for dialysis. If dialysis note dated will resume Xarelto. Subjective Date/time seen: 09/23/20 13:19 I FEEL WELL Interval history: SITTING IN CHAIR Ulices is alert today. He feels okay. Eating okay. Review of Systems Review of Systems: Narrative: NO COMPLAINS ENT: Reports Normal hearing present Neurologic: Reports Normal hearing present Exam Narrative: Exam Narrative: SITTING IN CHAIR Const: General: cooperative, comfortable, no acute distress, well developed, alert, awake, Physically active and ill appearing chronically Nutritional Appearance: obese morbidly obese Orientation/consciousness: oriented to person, oriented to place and oriented to time Limitations: no limitations HENMT: Head: normal to inspection, No palpable skull fracture present, normocephalic and atraumatic Ears: hearing grossly normal bilaterally and external ears normal General nose exam: Normal external nose present and Normal nares present Face and sinus: normal facial exam Mouth: Yes Normal oral and palatal mucosa present Throat: posterior tootie
[2020-09-23] MEDS: ALTEPLASE 2 MG VIAL (CATHFLO) IV PUSH (15:13)
[2020-09-23 21:04] LABS: Glucose Point of Care 169 mg/dl (65-105)
[2020-09-24] VITALS (11 sets, daily range): BP systolic 139–193; BP diastolic 77–84; PULSE 63–74; RESP 14–19; TEMP 36.1–36.6; O2SAT 90–100
[2020-09-24] MEDS: CLINDAMYCIN 600 MG/D5W 50 ML 600 MG/50 ML PIGGYBACK 100 MG IVPB (05:21)
[2020-09-24] MEDS: HEPARIN SODIUM 5,000 UNITS/ML VIAL 5000 UNITS SUB-Q ×3 (05:24→20:19)
[2020-09-24] MEDS: CENTRAL LINE FLUSH 10 ML IV PUSH ×3 (05:25→20:19)
[2020-09-24 06:30] LABS: Basophils Absolute Auto 0.1 K/mm3 (0.0-0.1); Basophils Percent Auto 0.8 % (0.2-1.2); Eosinophils Absolute Auto 0.5 K/mm3 (0-0.3); Hematocrit 29.1 % (42.0-52.0); Hemoglobin 8.8 g/dL (14.0-18.0); Immature Granulocyte Absolute 0.09 K/mm3 (0.00-0.031); Lymphocytes Absolute Auto 2.36 K/mm3 (0.9-3.2); Lymphocytes Percent Auto 26.1 % (18.3-44.2); Mean Corpuscular HGB Conc 30.2 g/dl (32-36); Mean Corpuscular Hemoglobin 27.9 pg (26-34); Mean Corpuscular Volume 92.4 fl (80-100); Mean Platelet Volume 11.1 fl (7.4-10.4); Monocytes Absolute Auto 0.8 K/mm3 (0.1-0.6); Neutrophils Absolute Auto 5.3 K/mm3 (1.3-6.7); Neutrophils Percent Auto 58.1 % (45.5-73.1); Platelet Count Result 264 k/mm3 (150-375); Red Blood Count 3.15 M/mm3 (4.6-6.20); Red Cell Distribution Width 14.5 % (11.5-14.5); White Blood Count 9.1 K/mm3 (4.5-10.0)
[2020-09-24 06:51] LABS: Albumin Level 3.1 g/dL (3.5-5.1); Anion Gap 5 mmol/L (8-16); Blood Urea Nitrogen 56 mg/dL (9-20); Calcium 8.4 mg/dL (8.4-10.2); Carbon Dioxide 35 mmol/L (22-30); Chloride 102 mmol/L (98-107); Estimated CRCL calculation 67 ml/min; Estimated Glomerular Filt Rate 36; Glucose 124 mg/dL (75-110); Phosphorus 4.7 mg/dL (2.5-4.5); Potassium 4.5 mmol/L (3.4-5.0); Sodium 142 mmol/L (137-145)
[2020-09-24] MEDS: LORATADINE 10 MG TABLET PO (08:03)
[2020-09-24] MEDS: GABAPENTIN 300 MG CAPSULE PO ×3 (08:04→17:37)
[2020-09-24] MEDS: METOPROLOL SUCCINATE EXT REL 25 MG TABCR PO (08:04)
[2020-09-24] MEDS: POLYSACCHARIDE IRON COMPLEX 150 MG CAPSULE PO (08:04)
[2020-09-24] MEDS: INSULIN GLARGINE (*BKC) 100 UNITS/ML 20 UNITS SUB-Q ×2 (08:07→20:23)
[2020-09-24 08:10] LABS: Glucose Point of Care 117 mg/dl (65-105)
--- NOTE | 2020-09-24 08:30 | P.PNNP_ITS ---
Progress Note: A&P Assessment and Plan (1) SHAKIRA (acute kidney injury): Code(s): N17.9 - Acute kidney failure, unspecified Status: Acute Assessment and Plan: * multifactorial: - infection (cellulitis +/- aspiration pneumonia) - insensible losses (fevers) - fluctuating hemodynamics - hypoxia - necessity of diuretic therapy (on hold currently) * renal ultrasound normal * urine lytes suggest pre-renal azotemia and urine eosinophis negative * probably ATN. * His creatinine has fallen to 2.0 today. (2) Stage 3a chronic kidney disease: Code(s): N18.31 - Chronic kidney disease, stage 3a Status: Chronic Assessment and Plan: * baseline creatinine runs ~ 1.3 - 1.6mg/dl * presumably due to HTN and diabetes along with LEONIDAS * he may have a new baseline creatinine But we will know what his baseline is for a few weeks. (3) Hyperkalemia: Code(s): E87.5 - Hyperkalemia Status: Acute Assessment and Plan: * Resolved (4) Acute and chronic respiratory failure with hypoxia: Code(s): J96.21 - Acute and chronic respiratory failure with hypoxia Status: Acute Assessment and Plan: * Improved. * Pulmonary recommendations noted (5) Cellulitis of both lower extremities: Code(s): L03.115 - Cellulitis of right lower limb; L03.116 - Cellulitis of left lower limb Status: Acute Assessment and Plan: * he has cellulitis. * White count is normal. * He is afebrile. * on broad spectrum antibiotics * Trying to mobilize (6) CHF (congestive heart failure): Qualifiers: Heart failure chronicity: unspecified Heart failure type: unspecified Qualified Code(s): I50.9 - Heart failure, unspecified Code(s): I50.9 - Heart failure, unspecified Status: Acute Assessment and Plan: * as noted by admission imaging * IV lasix on hold * Intake output still negative. * no need to start Lasix yet. * Cardiology following (7) Diabetes: Code(s): E11.9 - Type 2 diabetes mellitus without complications Status: Acute Assessment and Plan: * follow accuchecks * on Lantus and SSI Subjective Date/time seen: 09/24/20 08:30 Interval history: Ulices is alert today. He feels okay. comfortable in bed. Still on the BiPAP as he is just finishing sleeping. Exam Narrative: Exam Narrative: General: large male in NAD Heart: normal S1 and S2; no rub or gallop Lungs: coarse with decreased breath sounds at bases Abdomen: soft, nontender, nondistended, positive bowel sounds Extremities: 2+ edema Skin: chronic venous stasis dermatitis on lower extremities. Objective Data Vital Signs Vital Signs: Vital Signs - 24 hr 09/23/20 10:00 09/23/20 12:00 09/23/20 14:00 Temperature 36.2 C L 36.5 C Pulse Rate 78 72 68 Respiratory Rate 17 16 Blood Pressure 178/94 H 188/82 H Pulse Oximetry 97 98 09/23/20 16:00 09/23/20 18:25 09/23/20 20:00 Temperature 36.4 C L 36.1 C L Pulse Rate 69 78 76 Respiratory Rate 16 18 Blood Pressure 161/61 H 159/75 H Pulse Oximetry 97 97 09/23/20 23:15 09/23/20 23:54 09/24/20 00:00 Temperature 36.2 C L Pulse Rate 76 75 74
--- NOTE | 2020-09-24 08:30 | PM.PNNEP ---
Progress Note: A&P Assessment and Plan (1) SHAKIRA (acute kidney injury): Code(s): N17.9 - Acute kidney failure, unspecified Status: Acute Assessment and Plan: multifactorial: - infection (cellulitis +/- aspiration pneumonia) - insensible losses (fevers) - fluctuating hemodynamics - hypoxia - necessity of diuretic therapy (on hold currently) renal ultrasound normal urine lytes suggest pre-renal azotemia and urine eosinophis negative probably ATN. His creatinine has fallen to 2.0 today. (2) Stage 3a chronic kidney disease: Code(s): N18.31 - Chronic kidney disease, stage 3a Status: Chronic Assessment and Plan: baseline creatinine runs ~ 1.3 - 1.6mg/dl presumably due to HTN and diabetes along with LEONIDAS he may have a new baseline creatinine But we will know what his baseline is for a few weeks. (3) Hyperkalemia: Code(s): E87.5 - Hyperkalemia Status: Acute Assessment and Plan: Resolved (4) Acute and chronic respiratory failure with hypoxia: Code(s): J96.21 - Acute and chronic respiratory failure with hypoxia Status: Acute Assessment and Plan: Improved. Pulmonary recommendations noted (5) Cellulitis of both lower extremities: Code(s): L03.115 - Cellulitis of right lower limb; L03.116 - Cellulitis of left lower limb Status: Acute Assessment and Plan: he has cellulitis. White count is normal. He is afebrile. on broad spectrum antibiotics Trying to mobilize (6) CHF (congestive heart failure): Qualifiers: Heart failure chronicity: unspecified Heart failure type: unspecified Qualified Code(s): I50.9 - Heart failure, unspecified Code(s): I50.9 - Heart failure, unspecified Status: Acute Assessment and Plan: as noted by admission imaging IV lasix on hold Intake output still negative. no need to start Lasix yet. Cardiology following (7) Diabetes: Code(s): E11.9 - Type 2 diabetes mellitus without complications Status: Acute Assessment and Plan: follow accuchecks on Lantus and SSI Subjective Date/time seen: 09/24/20 08:30 Interval history: Ulices is alert today. He feels okay. comfortable in bed. Still on the BiPAP as he is just finishing sleeping. Exam Narrative: Exam Narrative: General: large male in NAD Heart: normal S1 and S2; no rub or gallop Lungs: coarse with decreased breath sounds at bases Abdomen: soft, nontender, nondistended, positive bowel sounds Extremities: 2+ edema Skin: chronic venous stasis dermatitis on lower extremities. Objective Data Vital Signs Vital Signs: Vital Signs - 24 hr 09/23/20 10:00 09/23/20 12:00 09/23/20 14:00 Temperature 36.2 C L 36.5 C Pulse Rate 78 72 68 Respiratory Rate 17 16 Blood Pressure 178/94 H 188/82 H Pulse Oximetry 97 98 09/23/20 16:00 09/23/20 18:25 09/23/20 20:00 Temperature 36.4 C L 36.1 C L Pulse Rate 69 78 76 Respiratory Rate 16 18 Blood Pressure 161/61 H 159/75 H Pulse Oximetry 97 97 09/23/20 23:15 09/23/20 23:54 09/24/20 00:00 Temperature 36.2 C L Pulse Rate 76 75 74 Respiratory Rate 21 H 16 Blood Pressure 161/78 H Pulse Oximetry 97 98 09/24/20 04:00 09/24/20 04:07 09/24/20 08:00 Temperature 36.6 C Pulse Rate 67 63 Respiratory Rate 14 Blood Pressure 139/77 Pulse Oximetry 100 100 09/24/20 08:04 Temperature Pulse Rate 68 Respiratory Rate Blood Pressure Pulse Oximetry Intake/Output Intake/Output: Intake & Output 09/21/20 09/22/20 09/23/20 09/24/20 23:59 23:59 23:59 23:59 Intake Total 2280 2170 2250 850 Output Total 4650 3800 5100 1450 Balance -2370 -1630 -2850 -600 Meds/Results Medications: Active Medications Generic Name Dose Route Start Last Admin Trade Name Freq PRN Reason Stop Dose
--- NOTE | 2020-09-24 11:20 | WPDINFPN2 ---
Progress Note: A&P Assessment and Plan (1) Cellulitis of both lower extremities: Code(s): L03.115 - Cellulitis of right lower limb; L03.116 - Cellulitis of left lower limb Status: Acute Additional Plan Cellulitis of LLE, resolved. REC Stop antibiotics (15 days). Call if Qs Subjective Date/time seen: 09/24/20 11:20 Interval history: no complaints Exam Narrative: Exam Narrative: afebrile Extrem: Other: stasis dermatitis and stasis erythema LLE, there is no cellulitis not lymphangitis Objective Data Vital Signs Vital Signs: Vital Signs - 24 hr 09/23/20 12:00 09/23/20 14:00 09/23/20 16:00 Temperature 36.5 C Pulse Rate 72 68 69 Respiratory Rate 16 Blood Pressure 188/82 H Pulse Oximetry 98 09/23/20 18:25 09/23/20 20:00 09/23/20 23:15 Temperature 36.4 C L 36.1 C L Pulse Rate 78 76 76 Respiratory Rate 16 18 21 H Blood Pressure 161/61 H 159/75 H Pulse Oximetry 97 97 97 09/23/20 23:54 09/24/20 00:00 09/24/20 04:00 Temperature 36.2 C L 36.6 C Pulse Rate 75 74 67 Respiratory Rate 16 14 Blood Pressure 161/78 H 139/77 Pulse Oximetry 98 100 09/24/20 04:07 09/24/20 08:00 09/24/20 08:04 Temperature Pulse Rate 63 69 68 Respiratory Rate Blood Pressure Pulse Oximetry 100 09/24/20 10:00 Temperature 36.3 C L Pulse Rate 72 Respiratory Rate 18 Blood Pressure 174/79 H Pulse Oximetry 98 Intake/Output Intake/Output: Intake & Output 09/21/20 09/22/20 09/23/20 09/24/20 23:59 23:59 23:59 23:59 Intake Total 2280 2170 2250 1140 Output Total 4650 3800 5100 1450 Balance -4250 -0016 -2850 -310 Meds/Results Medications: Active Medications Generic Name Dose Route Start Last Admin Trade Name Freq PRN Reason Stop Dose Admin Acetaminophen 650 mg 09/10/20 16:04 09/20/20 13:41 Acetaminophen 325 Mg Tablet PO 650 mg Q6H PRN Administration Mild Pain (1-3) or Fever Alteplase, Recombinant 2 mg 09/18/20 14:31 09/23/20 15:13 Alteplase 2 Mg Vial (Cathflo) IV PUSH 2 mg ONCE PRN Administration Line Occlusion Dextrose 12.5 gm 09/09/20 21:04 Dextrose 50% 25 Gm/50 Ml Syringe IV PUSH PRN PRN Hypoglycemia Protocol Diltiazem HCl 120 mg 09/11/20 09:00 09/24/20 08:03 Diltiazem Hcl Cd 120 Mg Cap.Sa.24h PO 120 mg QAM JONNA Administration Furosemide 40 mg 09/10/20 09:00 09/12/20 09:24 Furosemide Inj 40 Mg/4 Ml Vial IV PUSH 40 mg DAILY JONNA Administration Gabapentin 300 mg 09/09/20 21:15 09/24/20 08:04 Gabapentin 300 Mg Capsule PO 300 mg TID JONNA Administration Glucagon 1 mg 09/09/20 21:04 Glucagon For Inj 1 Mg Vial IM PRN PRN Hypoglycemia Protocol Glucose 15 gm 09/09/20 21:04 Glucose Oral Gel 15 Gm Of Glucse In 37.5 Gm Tube PO PRN PRN Hypoglycemia Protocol Heparin Sodium (Porcine) 5,000 units 09/13/20 22:00 09/24/20 05:24 Heparin Sodium 5,000 Units/Ml Vial SUB-Q 5,000 units Q8HR JONNA Administration Dextrose 1,000 mls @ 100 mls/hr 09/09/20 21:04 Dextrose 5% 1,000 Ml IVPB PRN PRN Hypoglycemia Protocol Daptomycin 500 mg/ Sodium 50 mls @ 100 mls/hr 09/14/20 20:00 09/22/20 22:39 Chloride IVPB Infused Q48H JONNA Infusion Clindamycin Phosphate 600 mg in 50 mls @ 100 mls/hr 09/22/20 22:00 09/24/20 05:55 Clindamycin 600 Mg/D5w 50 Ml IVPB Infused Q8HR JONNA Infusion Insulin Aspart 3 - 6 units 09/10/20 08:00 09/24/20 08:07 Insulin Aspart (*Bkc) 100 Units/Ml SUB-Q Not Given TIDWM JNONA Protocol Insulin Glargine 20 units 09/20/20 21:00 09/24/20 08:07 Insulin Glargine (*Bkc) 100 Units/Ml SUB-Q 20 units Q12HR JONNA Administration Loratadine 10 mg 09/10/20 09:00 09/24/20 08:03 Loratadine 10 Mg Tablet PO 10/10/20 09:01 10 mg DAILY JONNA Administration Metoprolol Succinate 25 mg 09/11/20 09:00 09/24/20 08:04 Metoprolol Succinate Ext Rel 25 Mg Tabcr PO 25 mg QAM JONNA Administrat
[2020-09-24 12:53] LABS: Glucose Point of Care 153 mg/dl (65-105)
--- NOTE | 2020-09-24 14:21 | PM.IMPN ---
Progress Note: A&P Assessment and Plan (1) Bilateral cellulitis of lower leg: Code(s): L03.116 - Cellulitis of left lower limb; L03.115 - Cellulitis of right lower limb Status: Acute Assessment and Plan: IV antibiotics HAVE BEEN DISCONTINUED PER ID RECOMMENDATION CT noncontrast to the left lower extremity, did not show evidence of necrotizing fasciitis. consult Infectious Disease Continue with IV antibiotics. Cellulitis slightly better. check culture some improvement CONTINUE LOCAL CARE continue to monitor up to chair (2) SHAKIRA (acute kidney injury): Code(s): N17.9 - Acute kidney failure, unspecified Status: Acute Assessment and Plan: Monitor renal function and electrolytes, creatinine is 2 Nephrology Consult noted. (3) Pulmonary hypertension: Code(s): I27.20 - Pulmonary hypertension, unspecified Status: Acute Assessment and Plan: Lasix p.r.n. currently on BiPAP at nighttime supplemental oxygen during daytime stable (4) Congestive heart failure: Code(s): I50.9 - Heart failure, unspecified Status: Acute Assessment and Plan: Lasix, beta-emerson, MARKO-inhibitor on hold in the light of his renal dysfunction continue to monitor intake and output Stephens in place CARDIOLOGY NOTE APPRECIATED (5) Acute and chronic respiratory failure with hypoxia: Code(s): J96.21 - Acute and chronic respiratory failure with hypoxia Status: Acute Assessment and Plan: Wean patient off oxygen as tolerated Treat CHF and COPD improved WEARING BIPAP AT NIGHTTIME ON ROOM AIR AT THE TIME OF MY VISIT (6) COPD (chronic obstructive pulmonary disease): Code(s): J44.9 - Chronic obstructive pulmonary disease, unspecified Status: Acute Assessment and Plan: Bronchodilators Steroids Pulmonary consult improved (7) 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: Code(s): I82.5Y3 - Chronic embolism and thrombosis of unspecified deep veins of proximal lower extremity, bilateral Status: Acute Assessment and Plan: WITH RESTART ELIQUIS WAITING ON FURTHER RECOMMENDATIONS FROM NEPHROLOGY (8) Cellulitis: Code(s): L03.90 - Cellulitis, unspecified Status: Acute Assessment and Plan: CEFEPIME AND CLINDAMYCIN plus daptomycin HAVE BEEN DISCONTINUE AFTER PROLONGED IV ANTIBIOTIC THERAPY FOR 15 DAY PER ID RECOMMENDATIONS IMPROVED CONTINUE TO MONITOR Afebrile (9) Rhabdomyolysis: Code(s): M62.82 - Rhabdomyolysis Status: Acute Assessment and Plan: keep patient well hydrated, monitor CK level, and renal function RESOLVED Additional Plan NEARING DISCHARGE Subjective Date/time seen: 09/24/20 14:21 I FEEL MUCH BETTER Interval history: PATIENT HAS BEEN OUT OF BED TO THE CHAIR HAS BEEN USING WALKER AND PARTICIPATING IN THERAPY WITH PHYSICAL THERAPY AND OCCUPATIONAL THERAPY Review of Systems Review of Systems: Narrative: NO NEW ISSUES Exam Narrative: Exam Narrative: SITTING IN CHAIR Const: General: cooperative, comfortable, no acute distress, well developed, alert, awake, Physically active and ill appearing chronically Nutritional Appearance: obese morbidly obese Orientation/consciousness: oriented to person, oriented to place and oriented to time Limitations: no limitations HENMT: Head: normal to inspection, No palpable skull fracture present, normocephalic and atraumatic Ears: hearing grossly normal bilaterally and external ears normal General nose exam: Normal external nose present and Normal nares present Face and sinus: normal facial exam Mouth: Yes Normal oral and palatal mucosa present Throat: posterior oropharynx normal Eyes: General: appearance normal, both eyes and all related structures Alignment and Position: alignment normal Periorbital: periorbital findings normal Eyelids: eyelids normal Conjunctivae: conjunc
[2020-09-24] MEDS: ACETAMINOPHEN 325 MG TABLET 650 MG PO (15:00)
[2020-09-24 17:59] LABS: Glucose Point of Care 139 mg/dl (65-105)
[2020-09-24 20:52] LABS: Glucose Point of Care 148 mg/dl (65-105)
[2020-09-25] VITALS (10 sets, daily range): BP systolic 150–180; BP diastolic 68–79; PULSE 58–71; RESP 14–20; TEMP 36.1–36.4; O2SAT 96–100
[2020-09-25] MEDS: CENTRAL LINE FLUSH 10 ML IV PUSH (05:46)
[2020-09-25] MEDS: HEPARIN SODIUM 5,000 UNITS/ML VIAL 5000 UNITS SUB-Q (05:46)
[2020-09-25 06:35] LABS: Basophils Absolute Auto 0.1 K/mm3 (0.0-0.1); Eosinophils Absolute Auto 0.5 K/mm3 (0-0.3); Eosinophils Percent Auto 5.9 % (0-4.4); Hemoglobin 8.5 g/dL (14.0-18.0); Immature Granulocyte Absolute 0.06 K/mm3 (0.00-0.031); Immature Granulocyte Percent A 0.7 % (0-0.5); Lymphocytes Absolute Auto 2.47 K/mm3 (0.9-3.2); Lymphocytes Percent Auto 28.5 % (18.3-44.2); Mean Corpuscular HGB Conc 29.3 g/dl (32-36); Mean Corpuscular Volume 95.4 fl (80-100); Mean Platelet Volume 11.3 fl (7.4-10.4); Monocytes Absolute Auto 0.7 K/mm3 (0.1-0.6); Monocytes Percent Auto 8.4 % (2.6-8.5); Neutrophils Absolute Auto 4.8 K/mm3 (1.3-6.7); Neutrophils Percent Auto 55.5 % (45.5-73.1); Platelet Count Result 242 k/mm3 (150-375); Red Blood Count 3.04 M/mm3 (4.6-6.20); Red Cell Distribution Width 14.5 % (11.5-14.5); White Blood Count 8.7 K/mm3 (4.5-10.0)
[2020-09-25 06:54] LABS: Albumin Level 3.1 g/dL (3.5-5.1); Anion Gap 5 mmol/L (8-16); Blood Urea Nitrogen 46 mg/dL (9-20); Calcium 8.3 mg/dL (8.4-10.2); Carbon Dioxide 33 mmol/L (22-30); Chloride 102 mmol/L (98-107); Estimated CRCL calculation 79 ml/min; Estimated Glomerular Filt Rate 43; Glucose 119 mg/dL (75-110); Potassium 4.6 mmol/L (3.4-5.0); Sodium 140 mmol/L (137-145)
[2020-09-25] MEDS: POLYSACCHARIDE IRON COMPLEX 150 MG CAPSULE PO (08:22)
[2020-09-25] MEDS: GABAPENTIN 300 MG CAPSULE PO ×2 (08:22→12:55)
[2020-09-25] MEDS: METOPROLOL SUCCINATE EXT REL 25 MG TABCR PO (08:23)
[2020-09-25] MEDS: INSULIN GLARGINE (*BKC) 100 UNITS/ML 20 UNITS SUB-Q (08:23)
[2020-09-25] MEDS: LORATADINE 10 MG TABLET PO (08:23)
[2020-09-25 08:35] LABS: Glucose Point of Care 127 mg/dl (65-105)
--- NOTE | 2020-09-25 09:54 | P.PNNP_ITS ---
Progress Note: A&P Assessment and Plan (1) SHAKIRA (acute kidney injury): Code(s): N17.9 - Acute kidney failure, unspecified Status: Acute Assessment and Plan: * multifactorial: - infection (cellulitis +/- aspiration pneumonia) - insensible losses (fevers) - fluctuating hemodynamics - hypoxia - necessity of diuretic therapy (on hold currently) * renal ultrasound normal * urine lytes suggest pre-renal azotemia and urine eosinophis negative * probably ATN. * His creatinine has fallen to 1.7 today. (2) Stage 3a chronic kidney disease: Code(s): N18.31 - Chronic kidney disease, stage 3a Status: Chronic Assessment and Plan: * baseline creatinine runs ~ 1.3 - 1.6mg/dl * presumably due to HTN and diabetes along with LEONIDAS * he continues to improve toward baseline. (3) Hyperkalemia: Code(s): E87.5 - Hyperkalemia Status: Acute Assessment and Plan: * Resolved (4) Acute and chronic respiratory failure with hypoxia: Code(s): J96.21 - Acute and chronic respiratory failure with hypoxia Status: Acute Assessment and Plan: * Improved. * Pulmonary recommendations noted (5) Cellulitis of both lower extremities: Code(s): L03.115 - Cellulitis of right lower limb; L03.116 - Cellulitis of left lower limb Status: Acute Assessment and Plan: * he has cellulitis. * White count is normal. * He is afebrile. * Off antibiotics (6) CHF (congestive heart failure): Qualifiers: Heart failure chronicity: unspecified Heart failure type: unspecified Qualified Code(s): I50.9 - Heart failure, unspecified Code(s): I50.9 - Heart failure, unspecified Status: Acute Assessment and Plan: * as noted by admission imaging * IV lasix on hold * Intake output still negative. * no need to start Lasix yet. * Cardiology following (7) Diabetes: Code(s): E11.9 - Type 2 diabetes mellitus without complications Status: Acute Assessment and Plan: * follow accuchecks * on Lantus and SSI Subjective Date/time seen: 09/25/20 09:54 Interval history: Patient feels okay. No chest pain or shortness of breath Exam Narrative: Exam Narrative: General: large male in NAD Heart: regular rate and rhythm.no rub or gallop Lungs: coarse with decreased breath sounds at bases Abdomen: soft, nontender, nondistended, positive bowel sounds Extremities: 2+ edema Or cyanosis Skin: chronic venous stasis dermatitis on lower extremities. Objective Data Vital Signs Vital Signs: Vital Signs - 24 hr 09/24/20 10:00 09/24/20 14:00 09/24/20 16:11 Temperature 36.3 C L 36.3 C L Pulse Rate 72 72 Respiratory Rate 18 19 Blood Pressure 174/79 H 169/82 H Pulse Oximetry 98 97 95 09/24/20 18:00 09/24/20 20:00 09/24/20 20:54 Temperature 36.1 C L 36.4 C Pulse Rate 67 70 70 Respiratory Rate 18 16 16 Blood Pressure 168/77 H 193/84 H Pulse Oximetry 96 90 90 09/25/20 00:29 09/25/20 01:01 09/25/20 02:55 Temperature 36.2 C L Pulse Rate 58 L Respiratory Rate 17 16 Blood Pressure 150/76 H Pulse Oximetry 98 100 09/25/20
--- NOTE | 2020-09-25 09:54 | PM.PNNEP ---
Progress Note: A&P Assessment and Plan (1) SHAKIRA (acute kidney injury): Code(s): N17.9 - Acute kidney failure, unspecified Status: Acute Assessment and Plan: multifactorial: - infection (cellulitis +/- aspiration pneumonia) - insensible losses (fevers) - fluctuating hemodynamics - hypoxia - necessity of diuretic therapy (on hold currently) renal ultrasound normal urine lytes suggest pre-renal azotemia and urine eosinophis negative probably ATN. His creatinine has fallen to 1.7 today. (2) Stage 3a chronic kidney disease: Code(s): N18.31 - Chronic kidney disease, stage 3a Status: Chronic Assessment and Plan: baseline creatinine runs ~ 1.3 - 1.6mg/dl presumably due to HTN and diabetes along with LEONIDAS he continues to improve toward baseline. (3) Hyperkalemia: Code(s): E87.5 - Hyperkalemia Status: Acute Assessment and Plan: Resolved (4) Acute and chronic respiratory failure with hypoxia: Code(s): J96.21 - Acute and chronic respiratory failure with hypoxia Status: Acute Assessment and Plan: Improved. Pulmonary recommendations noted (5) Cellulitis of both lower extremities: Code(s): L03.115 - Cellulitis of right lower limb; L03.116 - Cellulitis of left lower limb Status: Acute Assessment and Plan: he has cellulitis. White count is normal. He is afebrile. Off antibiotics (6) CHF (congestive heart failure): Qualifiers: Heart failure chronicity: unspecified Heart failure type: unspecified Qualified Code(s): I50.9 - Heart failure, unspecified Code(s): I50.9 - Heart failure, unspecified Status: Acute Assessment and Plan: as noted by admission imaging IV lasix on hold Intake output still negative. no need to start Lasix yet. Cardiology following (7) Diabetes: Code(s): E11.9 - Type 2 diabetes mellitus without complications Status: Acute Assessment and Plan: follow accuchecks on Lantus and SSI Subjective Date/time seen: 09/25/20 09:54 Interval history: Patient feels okay. No chest pain or shortness of breath Exam Narrative: Exam Narrative: General: large male in NAD Heart: regular rate and rhythm.no rub or gallop Lungs: coarse with decreased breath sounds at bases Abdomen: soft, nontender, nondistended, positive bowel sounds Extremities: 2+ edema Or cyanosis Skin: chronic venous stasis dermatitis on lower extremities. Objective Data Vital Signs Vital Signs: Vital Signs - 24 hr 09/24/20 10:00 09/24/20 14:00 09/24/20 16:11 Temperature 36.3 C L 36.3 C L Pulse Rate 72 72 Respiratory Rate 18 19 Blood Pressure 174/79 H 169/82 H Pulse Oximetry 98 97 95 09/24/20 18:00 09/24/20 20:00 09/24/20 20:54 Temperature 36.1 C L 36.4 C Pulse Rate 67 70 70 Respiratory Rate 18 16 16 Blood Pressure 168/77 H 193/84 H Pulse Oximetry 96 90 90 09/25/20 00:29 09/25/20 01:01 09/25/20 02:55 Temperature 36.2 C L Pulse Rate 58 L Respiratory Rate 17 16 Blood Pressure 150/76 H Pulse Oximetry 98 100 09/25/20 03:00 09/25/20 05:06 09/25/20 08:20 Temperature 36.2 C L Pulse Rate 59 L Respiratory Rate 14 20 Blood Pressure 154/68 H Pulse Oximetry 98 98 09/25/20 08:23 Temperature Pulse Rate 64 Respiratory Rate Blood Pressure Pulse Oximetry Intake/Output Intake/Output: Intake & Output 09/22/20 09/23/20 09/24/20 09/25/20 23:59 23:59 23:59 23:59 Intake Total 2170 2250 3100 740 Output Total 3800 5100 3650 1800 Balance -8070 -2850 -550 -1060 Meds/Results Medications: Active Medications Generic Name Dose Route Start Last Admin Trade Name Katy PRN Reason Stop Dose Admin Acetaminophen 650 mg 09/10/20 16:04 09/24/20 15:00 Acetaminophen 325 Mg Tablet PO 650 mg Q6H PRN Admin
[2020-09-25 11:47] LABS: EDCOVIDSCREEN Negative (Negative)
[2020-09-25 11:56] LABS: Glucose Point of Care 184 mg/dl (65-105)
--- NOTE | 2020-09-25 13:13 | PM.DS ---
DS: Admitting Diagnosis Admitting Diagnosis Admitting Diagnosis: Acute hypoxic respiratory failure DS: Discharge Diagnosis Discharge Diagnosis (1) Sepsis: Qualifiers: Sepsis acute organ dysfunction status: unspecified Sepsis type: sepsis due to unspecified organism Qualified Code(s): A41.9 - Sepsis, unspecified organism Code(s): A41.9 - Sepsis, unspecified organism Status: Resolved (2) Cellulitis of both lower extremities: Code(s): L03.115 - Cellulitis of right lower limb; L03.116 - Cellulitis of left lower limb Status: Resolved Assessment and Plan: received 15 days of IV antibiotics was followed by ID during inpatient stay. (3) Acute and chronic respiratory failure with hypoxia: Code(s): J96.21 - Acute and chronic respiratory failure with hypoxia Status: Acute Assessment and Plan: currently on 2 L of oxygen. This treated for possible pneumonia. also received IV diuresis, which was later held. Cardiology followed during admission. (4) Obstructive sleep apnea: Code(s): G47.33 - Obstructive sleep apnea (adult) (pediatric) Status: Acute Assessment and Plan: Continue Simponi. (5) Chronic obstructive pulmonary disease: Code(s): J44.9 - Chronic obstructive pulmonary disease, unspecified Status: Acute Assessment and Plan: Both. (6) CHF (congestive heart failure): Qualifiers: Heart failure chronicity: unspecified Heart failure type: unspecified Qualified Code(s): I50.9 - Heart failure, unspecified Code(s): I50.9 - Heart failure, unspecified Status: Acute Assessment and Plan: contained with acute exacerbation requiring oxygen which has not been weaned down to baseline level (7) Morbid obesity: Code(s): E66.01 - Morbid (severe) obesity due to excess calories Status: Chronic (8) Essential hypertension: Code(s): I10 - Essential (primary) hypertension Status: Acute Assessment and Plan: continue medication (9) SHAKIRA (acute kidney injury): Code(s): N17.9 - Acute kidney failure, unspecified Status: Acute Assessment and Plan: nephrology recommendations noted (10) 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: Code(s): I82.5Y3 - Chronic embolism and thrombosis of unspecified deep veins of proximal lower extremity, bilateral Status: Acute Assessment and Plan: continue anticoagulation (11) Current use of parts counterman anticoagulation: Code(s): Z79.01 - prison (current) use of anticoagulants Status: Acute (12) Congestive heart failure: Code(s): I50.9 - Heart failure, unspecified Status: Acute Assessment and Plan: as above (13) Anemia of chronic renal failure, stage 2 (mild): Code(s): N18.2 - Chronic kidney disease, stage 2 (mild); D63.1 - Anemia in chronic kidney disease Status: Acute Assessment and Plan: as above (14) Diabetes mellitus with diabetic nephropathy, with long-term current use of insulin: Code(s): E11.21 - Type 2 diabetes mellitus with diabetic nephropathy; Z79.4 - medical terminologist (current) use of insulin Status: Acute Assessment and Plan: continue insulin DS: Summary Hospital Course Reason for hospitalization: cellulitis Acute hypoxic respiratory failure Pneumonia Hospital Course: 49-year-old male with past medical history significant for obesity hypoventilation syndrome, diastolic heart failure, type 2 diabetes mellitus status post toe amputation, DVT on Xarelto, hypertension, LEONIDAS, CKD stage 3 and anxiety who was admitted 09/09 with acute hypoxic respiratory failure. he was followed by cardiology and pulmonary services during his admission required some IV diuresis concerning for CHF exacerbation. There are also some concerns about community-acquired pneumonia. In addition he was also noted to have bilateral low
[2020-09-25] MEDS: NEOMYCIN/POLYMYXIN/BACITRACIN OINTMENT PACKET 1 PACKET (13:39)
== END 2020-09-25 14:45 | DRG 720 ==
LOC: ANHED 14:43 → ANH3MEDSUR 17:19 → ANHIMU 21:15 → ANH2MED 09-20 14:15 → ANHIMU 09-26 13:50
PROVIDERS: Internal Medicine; Internal Medicine Nephrology; Internal Medicine Pulmonary Disease; Nurse Practitioner; Admitting Provider Emergency Medicine; Emergency Provider Emergency Medicine; PCP Internal Medicine; Visit Provider Internal Medicine
DX: A41.9 Sepsis, unspecified organism (principal); J96.21 Acute and chronic respiratory failure with hypoxia; Z20.822 Contact with and (suspected) exposure to COVID-19; J96.12 Chronic respiratory failure with hypercapnia; E66.2 Morbid (severe) obesity with alveolar hypoventilation; Z68.43 Body mass index [BMI] 50.0-59.9, adult; N17.9 Acute kidney failure, unspecified; L03.115 Cellulitis of right lower limb; L03.116 Cellulitis of left lower limb; E11.42 Type 2 diabetes mellitus with diabetic polyneuropathy; J44.9 Chronic obstructive pulmonary disease, unspecified; I27.20 Pulmonary hypertension, unspecified; K21.9 Gastro-esophageal reflux disease without esophagitis; E11.22 Type 2 diabetes mellitus with diabetic chronic kidney disease; I13.0 Hypertensive heart and chronic kidney disease with heart failure and stage 1 through stage 4 chronic kidney disease, or unspecified chronic kidney disease; N18.31 Chronic kidney disease, stage 3a; I50.32 Chronic diastolic (congestive) heart failure; D69.6 Thrombocytopenia, unspecified; E87.5 Hyperkalemia; I82.5Y3 Chronic embolism and thrombosis of unspecified deep veins of proximal lower extremity, bilateral; F32.9 Major depressive disorder, single episode, unspecified; I83.11 Varicose veins of right lower extremity with inflammation; I83.12 Varicose veins of left lower extremity with inflammation; M62.82 Rhabdomyolysis; D63.1 Anemia in chronic kidney disease; Z79.01 Long term (current) use of anticoagulants; Z79.4 Long term (current) use of insulin; Z79.899 Other long term (current) drug therapy; Z87.891 Personal history of nicotine dependence; Z89.422 Acquired absence of other left toe(s); Z89.421 Acquired absence of other right toe(s)
CPT/HCPCS: 36415; 36569; 36600; 71045; 73502; 73700; 74176; 76775; 80048; 80053; 80069; 80074; 81001; 82375; 82436; 82550; 82570; 82805; 82948; 83036; 83050; 83605; 83615; 83690; 83735; 83874; 84100; 84156; 84300; 84443; 85025; 85027; 85055; 85999; 86706; 87426; 93005; 93970; 94002; 94003; 94640; 94762; 96365; 96374; 96375; 97110; 97161; 97166; 97530; 97535; 99285; A9270; C1751; C9803; G0378; G0379; J0610; J0692; J0696; J0878; J1644; J1815; J1940; J2405; J2543; J2930; J2997; J3370; J3475; J7120

== ENCOUNTER 2020-10-28 13:14 | Inpatient (IN) | payer OTHER, SELFPAY ==
[2020-10-28] VITALS (7 sets, daily range): BP systolic 148–182; BP diastolic 61–99; PULSE 64–88; RESP 14–22; TEMP 36.7–36.9; O2SAT 92–100
--- NOTE | ~2020-10-28 | XR_ITS ---
XR chest 1V portable 11/06/2020 05:33 Indication: Aspiration pneumonia Procedure: AP portable chest Comparison: Comparison to multiple prior studies sequentially, with oldest reviewed study dated 11/01. Findings: Endotracheal tube tip 4.8 cm above the cande. NG tube in the stomach. Improved perihilar a nd bibasilar airspace disease. No significant effusion or pneumothorax. Cardiomegaly. Impression: 1: Improved bilateral airspace disease which may represent pneumonia or edema. Reviewed, dictated and finalized at location A. Impression: 1: Improved bilateral airspace disease which may represent pneumonia or edema.
--- NOTE | ~2020-10-28 | CT_ITS ---
EXAMINATION: CT brain wo con DATE: 11/04/2020 11:01 INDICATION: Anoxic brain injury. TECHNIQUE: Computed tomography (CT) of the head was performed without intravenous contrast. The mA wa s adjusted according to patient size. Iterative reconstruction technique was employed. The dose-lengt h product was 681.00 mGy-cm. COMPARISON: Head CT 11/01/2020 FINDINGS: There is no intracranial hemorrhage, acute infarction, or abnormal intracranial mass lesion . There are old lacunar infarcts in genu of right internal capsule and left caudate nucleus. The vent ricles are normal in size. There is mucosal thickening in the paranasal sinuses. The orbits are romero l. There are small mastoid effusions. IMPRESSION: 1. Old lacunar infarcts in right internal capsule and left caudate nucleus. Reviewed, dictated and finalized at location B.
--- NOTE | ~2020-10-28 | XR_ITS ---
XR chest 1V portable 11/04/2020 06:09 Indication: Post arrest intubation Procedure: AP portable chest Comparison: Comparison to multiple prior studies sequentially, with oldest reviewed study dated 11/01. Findings: Endotracheal tube tip 3.8 cm above the cande. Left IJ central line tip in the SVC. Cardiom egaly. Bilateral perihilar interstitial infiltrates. Low lung volumes. No significant effusion or pne umothorax. Impression: 1: Cardiomegaly with stable mild bilateral perihilar interstitial infiltrates which may represent leatha ma or pneumonia. Reviewed, dictated and finalized at location A. Impression: 1: Cardiomegaly with stable mild bilateral perihilar interstitial infiltrates w hich may represent edema or pneumonia.
--- NOTE | ~2020-10-28 | XR_ITS ---
EXAMINATION: XR chest 1V portable EXAM DATE: 11/14/2020 05:33 INDICATION: Respiratory failure, intubation. History CHF. TECHNIQUE: Portable AP frontal chest x-ray was obtained. Comparison is made to prior examination from 11/13. FINDINGS: Endotracheal tube tip is 5 centimeters above the cande. There is a left-sided IJ venous l ine. There is a nasogastric tube seen with tip collimated off the study, but below the left hemidiaph ragm. Low lung volume with small amount of ill defined bibasilar nonspecific airspace disease, could be pne umonia, atelectasis, edema. There are no sizable pleural effusions. There is no pneumothorax suspe cted. The cardiomediastinal silhouette is prominent but magnified on this AP technique. The bones and soft tissues are unremarkable. Mild improvement in airspace disease compared to prior study. IMPRESSION: 1. Line and tube(s) in position. 2. Improving basilar airspace disease. Reviewed, dictated and finalized at location A.
--- NOTE | ~2020-10-28 | XR_ITS ---
EXAMINATION: XR chest 1V portable INDICATION: Respiratory failure TECHNIQUE: Portable AP chest at 0504 hours COMPARISON: 11/17/2020 FINDINGS: The nasogastric and endotracheal tubes have been removed. A tracheostomy has been inserted. A left internal jugular central venous catheter ends with its tip in the left brachiocephalic vein. Diffuse airspace opacities persist throughout all lung zones without significant change. There is no pleural effusion or pneumothorax. IMPRESSION: 1. Stable diffuse lung disease, consistent with pneumonia and/or pulmonary edema and/or acute respira tory distress syndrome (ARDS). 2. Endotracheal and nasogastric tube removal with tracheostomy insertion. Reviewed, dictated and finalized at location A. IMPRESSION: 1. Stable diffuse lung disease, consistent with pneumonia and/or pulmonary lori a and/or acute respiratory distress syndrome (ARDS). 2. Endotracheal and nasogastric tube removal with tracheostomy insertion.
--- NOTE | ~2020-10-28 | XR_ITS ---
EXAMINATION: XR chest 1V portable INDICATION: Respiratory failure TECHNIQUE: Portable AP chest at 0453 hours COMPARISON: 11/20/2020 FINDINGS: A tracheostomy is in expected position. A right upper extremity PICC ends with its tip at t he superior cavoatrial junction. Diffuse airspace opacities persist in all lung zones without signifi cant change. There is no pleural effusion or pneumothorax. The cardiomediastinal silhouette is stable . IMPRESSION: 1. Stable diffuse lung disease, consistent with pneumonia and/or pulmonary edema and/or acute respira tory distress syndrome (ARDS). Reviewed, dictated and finalized at location A. IMPRESSION: 1. Stable diffuse lung disease, consistent with pneumonia and/or pulmonary lori a and/or acute respiratory distress syndrome (ARDS).
--- NOTE | ~2020-10-28 | XR_ITS ---
EXAMINATION: XR chest 1V portable INDICATION: Respiratory failure TECHNIQUE: Portable AP chest at 0508 hours COMPARISON: 11/01/2020 FINDINGS: The endotracheal tube ends approximately 3.6 cm above the cande. The nasogastric tube is f ollowed as far as the stomach. Its tip is beyond the inferior margin of the radiograph. A left music industry internship al jugular central venous catheter ends with its tip in the proximal superior vena cava. Diffuse airs pace opacities persist in all lung zones with slight improvement. Cardiomegaly is noted. There is no pleural effusion or pneumothorax. IMPRESSION: 1. Diffuse lung disease with interval improvement, consistent with pneumonia and/or pulmonary edema a nd/or acute respiratory distress syndrome (ARDS). 2. Cardiomegaly. Reviewed, dictated and finalized at location A. IMPRESSION: 1. Diffuse lung disease with interval improvement, consistent with pneumonia an d/or pulmonary edema and/or acute respiratory distress syndrome (ARDS). 2. Cardiomegaly.
--- NOTE | ~2020-10-28 | XR_ITS ---
EXAMINATION: XR chest 1V portable DATE: 11/27/2020 05:48 INDICATION: Respiratory failure. TECHNIQUE: A single frontal view of the chest was obtained. COMPARISON: Chest single view 11/23/2020 FINDINGS: There are mild airspace opacities in all lung zones bilaterally with a perihilar predominan ce. No pleural effusion or pneumothorax. Calcified left hilar and mediastinal lymph nodes are consist ent with old granulomatous disease. Cardiomegaly is noted. There is a tracheostomy tube in expected p osition. A right upper extremity peripherally inserted central venous catheter (PICC) is seen with ti p at the superior cavoatrial junction. IMPRESSION: 1. Diffuse lung disease with mild worsening, consistent with pulmonary edema versus pneumonia. 2. Cardiomegaly. Reviewed, dictated and finalized at location A. IMPRESSION: 1. Diffuse lung disease with mild worsening, consistent with pulmonary edema ve rsus pneumonia. 2. Cardiomegaly.
--- NOTE | ~2020-10-28 | US_ITS ---
EXAMINATION: US venous doppler [facility] DATE: 11/09/2020 17:17 INDICATION: Lower limb swelling. TECHNIQUE: Grayscale ultrasound images without and with compression and Doppler ultrasound images of the bilateral lower extremity veins were obtained. COMPARISON: Ultrasound 10/30/2020 FINDINGS: The visualized portions of right common femoral vein, profunda (deep) femoral vein, and greater saphe nous vein outflow are patent. There is thrombus in right femoral, popliteal, and posterior tibial vei ns. The peroneal veins are not well visualized. The visualized portions of left common femoral vein, profunda femoral vein, femoral vein, popliteal v ein, posterior tibial veins, and greater saphenous vein outflow are patent. The peroneal veins are no t well visualized. IMPRESSION: 1. Deep vein thrombosis involving right femoral, popliteal, and posterior tibial veins. Reviewed, dictated and finalized at location A. IMPRESSION: 1. Deep vein thrombosis involving right femoral, popliteal, and posterior tibi al veins.
--- NOTE | ~2020-10-28 | XR_ITS ---
EXAMINATION: XR abdomen NG/feed tube insert DATE: 11/08/2020 16:01 INDICATION: Orogastric tube placement. TECHNIQUE: A semiupright view of the abdomen was obtained. COMPARISON: Chest CT 11/04/2020 FINDINGS: The lower abdomen is not included. The nasogastric tube tip is in the stomach. IMPRESSION: 1. Nasogastric tube tip in the stomach. Reviewed, dictated and finalized at location A.
--- NOTE | ~2020-10-28 | XR_ITS ---
EXAMINATION: XR chest 1V portable DATE: 11/22/2020 05:13 INDICATION: Respiratory failure TECHNIQUE: frontal view of the chest was obtained. COMPARISON: Chest radiograph dated 11/21/2020 and 11/19/2020 FINDINGS: Tracheostomy tube in expected position at the thoracic inlet with distal tip approximately 3.7 cm abo ve the cande. Right upper extremity peripherally inserted central venous catheter (PICC) tip near th e superior cavoatrial junction. Mild bilateral airspace opacities, predominantly in the lower lung zones which have demonstrated grad ual improvement since 11/19/2020. No pleural effusion or pneumothorax. The cardiomediastinal silhouette is normal. Visualized bones and soft tissues are unremarkable. IMPRESSION: 1. Gradual improvement in bilateral basilar predominant opacities which could represent pulmonary leatha ma, pneumonia, atelectasis or some combination thereof. Reviewed, dictated and finalized at location A. IMPRESSION: 1. Gradual improvement in bilateral basilar predominant opacities which could r epresent pulmonary edema, pneumonia, atelectasis or some combination thereof.
--- NOTE | ~2020-10-28 | XR_ITS ---
EXAMINATION: XR foot LT min 3V DATE: 10/28/2020 15:41 INDICATION: Left foot osteomyelitis. TECHNIQUE: 4 views of left foot were obtained. COMPARISON: CT 09/12/2020 FINDINGS: Bone alignment is normal. There are old healed fractures of the necks of second and third m etatarsals with fusion of the two bones distally. There is amputation at second metatarsophalangeal j oint and at base of third proximal phalanx. There is mild midfoot osteoarthritis. There is an entheso phyte at posterior aspect of calcaneal tuberosity. There is an ulcer at the heel. There is soft tissu e swelling of the foot. IMPRESSION: 1. No evidence osteoarthritis. Reviewed, dictated and finalized at location A.
--- NOTE | ~2020-10-28 | XR_ITS ---
EXAMINATION: XR chest ET placement INDICATION: Endotracheal tube placement TECHNIQUE: Portable AP chest at 0328 hours COMPARISON: 09/16/2020 FINDINGS: The endotracheal tube is approximately 1.6 cm above the cande. The nasogastric tube is in the stomach. Cardiomegaly is noted. There are diffuse opacities throughout all lung zones with more f ocal consolidation seen in the right upper lobe. IMPRESSION: 1. Endotracheal tube approximately 1.6 cm above the cande. 2. Diffuse lung disease, consistent with pneumonia and/or pulmonary edema. 3. Focal consolidation of the right upper lobe likely reflects atelectasis or pneumonia. Reviewed, dictated and finalized at location A. IMPRESSION: 1. Endotracheal tube approximately 1.6 cm above the cande. 2. Diffuse lung disease, consistent with pneumonia and/or pulmonary edema. 3. Focal consolidation of the right upper lobe likely reflects atelectasis or p neumonia.
--- NOTE | ~2020-10-28 | XR_ITS ---
EXAMINATION: XR chest 1V portable EXAM DATE: 11/10/2020 06:15 INDICATION: Respiratory failure . TECHNIQUE: Portable AP frontal chest x-ray was obtained. Comparison is made to prior examination from 11/06/2020. FINDINGS: Endotracheal tube tip is 3.5 centimeters above the cande. There is a left-sided IJ venous line. Feeding tube tip is poorly visualized but extending at least to the gastroesophageal junction. Mild bibasilar nonspecific airspace disease. Low lung volumes. There are no sizable pleural effusions . There is no pneumothorax suspected. The cardiomediastinal silhouette is prominent but magnified on this AP technique. The bones and soft tissues are unremarkable. There is no significant interval change compared to prior exam. IMPRESSION: 1. Line and tube(s) in position. 2. Stable airspace disease and other findings as above. Reviewed, dictated and finalized at location A.
--- NOTE | ~2020-10-28 | CT_ITS ---
EXAMINATION:CT diagnostic chest wo con DATE: 11/04/2020 11:01 INDICATION: Respiratory failure. TECHNIQUE: Computed tomography (CT) of the chest was performed without intravenous contrast. Automate d exposure control and iterative reconstruction technique were employed. The dose-length product (DLP ) was 953.66 mGy-cm. COMPARISON: Chest CT 05/15/2019 FINDINGS: There is moderate atelectasis in the lower lobes and mild atelectasis in the lower lobes. T he lung volumes are small. There are small pleural effusions. Cardiomegaly is noted. There are randall ry artery calcifications. No pericardial effusion. Calcified left hilar lymph nodes are consistent wi th old granulomatous disease. There is mild mediastinal lymphadenopathy, likely reactive. The central pulmonary arteries are enlarged, consistent with pulmonary arterial hypertension. The endotracheal t ube tip is in expected position above the cande. The nasogastric tube tip is in the stomach. There i s a small volume of ascites. Calcifications in the spleen are consistent with old granulomatous disea se. There are bridging endplate osteophytes at multiple levels in the spine, consistent with diffuse idiopathic skeletal hyperostosis (DISH). IMPRESSION: 1. Small pleural effusions. 2. Small volume of ascites. 3. Cardiomegaly. 4. Mild mediastinal lymphadenopathy, likely reactive. Reviewed, dictated and finalized at location B.
--- NOTE | ~2020-10-28 | XR_ITS ---
EXAMINATION: XR chest 1V portable DATE: 11/15/2020 05:23 INDICATION: Respiratory failure TECHNIQUE: frontal view of the chest was obtained. COMPARISON: Chest radiograph dated 11/14/2020 FINDINGS: Endotracheal tube tip 5.4 cm above the cande. Nasogastric tube extends below the left hemidiaphragm with distal tip collimated off the study. Elevation the right hemidiaphragm with persistent bandlike discoid atelectasis in the right midlung z one. There are additional bilateral perihilar and infrahilar opacities with bronchial wall thickening and increased interstitial pattern. No pleural effusion or pneumothorax. Cardiomegaly. Proximal righ t humeral enchondroma. IMPRESSION: 1. Bilateral perihilar and infrahilar opacities which could represent mild pulmonary edema or pneumon ia. 2. Elevated right hemidiaphragm with discoid atelectasis in the right midlung zone. Reviewed, dictated and finalized at location A. IMPRESSION: 1. Bilateral perihilar and infrahilar opacities which could represent mild pulm onary edema or pneumonia. 2. Elevated right hemidiaphragm with discoid atelectasis in the right midlung z one.
--- NOTE | ~2020-10-28 | CT_ITS ---
EXAMINATION: CT brain wo con INDICATION: Altered mental status, unresponsive COMPARISON: None TECHNIQUE: Standard unenhanced head CT. The dose-length product (DLP) was 605.33 mGy-cm. The mA was a djusted according to patient size. Iterative reconstruction technique was employed. FINDINGS: There is no intracranial hemorrhage, acute infarction, or abnormal mass lesion. The ventric les are normal. There is no abnormal mass effect or midline shift. The kingston-white matter differentiat ion is normal. The basal cisterns are patent. The orbits are normal. There is mild mucosal thickening of the paranasal sinuses. IMPRESSION: 1. No acute intracranial abnormality. Reviewed, dictated and finalized at location A.
--- NOTE | ~2020-10-28 | XR_ITS ---
EXAMINATION: XR chest 1V portable INDICATION: Respiratory failure TECHNIQUE: Portable AP chest at 05 0519 hours COMPARISON: 11/16/2020 FINDINGS: The endotracheal tube ends approximately 3.6 cm above the cande. The nasogastric tube is f ollowed as far as the stomach. Its tip is beyond the inferior margin of the radiograph. A left epidemiology internship al jugular central venous catheter ends in the left brachiocephalic vein. Diffuse airspace opacities persist throughout all lung zones without significant change. Stable cardiomegaly is noted. There is no pleural effusion or pneumothorax. IMPRESSION: 1. Stable diffuse lung disease, consistent with pneumonia and/or pulmonary edema. Reviewed, dictated and finalized at location A. IMPRESSION: 1. Stable diffuse lung disease, consistent with pneumonia and/or pulmonary lori a.
--- NOTE | ~2020-10-28 | XR_ITS ---
EXAMINATION: XR chest port-a-cath/central INDICATION: Central line insertion TECHNIQUE: Portable AP chest at 0814 hours COMPARISON: 0331 hours FINDINGS: A left internal jugular central venous catheter is been inserted which ends with its tip in the proximal superior vena cava. The endotracheal tube is 3.5 cm above the cande. The OG tube is in the stomach. Cardiomegaly is noted. Diffuse opacities persist in all lung zones with slight improvem ent in the right upper lobe and right lung base. No definite pleural effusion or pneumothorax is iden tified. IMPRESSION: 1. Left internal jugular catheter insertion without pneumothorax. 2. Diffuse lung disease with improvement in the right upper and lower lung zones, consistent with pne umonia/or pulmonary edema. Reviewed, dictated and finalized at location A. IMPRESSION: 1. Left internal jugular catheter insertion without pneumothorax. 2. Diffuse lung disease with improvement in the right upper and lower lung zone s, consistent with pneumonia/or pulmonary edema.
--- NOTE | ~2020-10-28 | US_ITS ---
EXAMINATION: US arterial ankle brachial ind DATE: 10/29/2020 11:36 INDICATION: Left foot ulcer. TECHNIQUE: Segmental pressures and plethysmographic and Doppler waveforms of the brachial and lower e xtremity arteries were obtained. COMPARISON: None. FINDINGS: Right and left brachial artery pressures of 147 mm Hg and 144 mm Hg, respectively, are concordant (no rmal difference <= 30 mmHg). The right ankle-brachial index (ROSA) could not be measured due to inability to cuff occlude the arter ies (normal >= 0.9-1.0). The right great toe-brachial index (TBI) is 1.05 (normal >= 0.65). Arterial Doppler waveforms are monophasic in posterior tibial artery and biphasic in dorsalis pedis. The left ROSA is 1.09. The left TBI is 0.85. Arterial Doppler waveforms are at least biphasic in poste rior tibial artery and dorsalis pedis. IMPRESSION: 1. No significant arterial occlusive disease. Reviewed, dictated and finalized at location A.
--- NOTE | ~2020-10-28 | XR_ITS ---
EXAMINATION: XR chest 1V portable DATE: 11/16/2020 05:53 INDICATION: Respiratory failure TECHNIQUE: frontal view of the chest was obtained. COMPARISON: Chest radiograph dated 11/15/2020 FINDINGS: Endotracheal tube tip 3.3 cm above the cande. Left internal jugular central venous catheter with dis kika tip at the left brachiocephalic vein. Nasogastric tube extends below the left hemidiaphragm with distal tip collimated off the study. Improved aeration of the right lung. Pulmonary vascular congestion with perihilar predominant increas ed interstitial and airspace opacities. No pleural effusion or pneumothorax. Cardiomegaly. IMPRESSION: 1. No significant interval change in perihilar predominant interstitial and airspace opacities which could represent pulmonary edema and/or pneumonia. Reviewed, dictated and finalized at location A. IMPRESSION: 1. No significant interval change in perihilar predominant interstitial and air space opacities which could represent pulmonary edema and/or pneumonia.
--- NOTE | ~2020-10-28 | XR_ITS ---
EXAMINATION: XR chest 1V portable INDICATION: Respiratory failure TECHNIQUE: Portable AP chest at 0517 hours COMPARISON: 11/19/2020 FINDINGS: The tracheostomy is in expected position. A right upper extremity PICC has been inserted wh ich ends with its tip at the superior cavoatrial junction. The left internal jugular central venous c atheter has been removed. Diffuse airspace opacities persist throughout all lung zones with slight im provement. There is no pleural effusion or pneumothorax. The cardiomediastinal silhouette is stable. IMPRESSION: 1. Diffuse lung disease with interval improvement, consistent with pneumonia and/or pulmonary edema a nd/or acute respiratory distress syndrome (ARDS). Reviewed, dictated and finalized at location A. IMPRESSION: 1. Diffuse lung disease with interval improvement, consistent with pneumonia an d/or pulmonary edema and/or acute respiratory distress syndrome (ARDS).
--- NOTE | ~2020-10-28 | US_ITS ---
US abdomen limited DATE: 11/09/2020 09:16 INDICATION: Elevated liver function tests TECHNIQUE: Real-time imaging of liver, pancreas, gallbladder COMPARISON: 09/10/2020 CT abdomen FINDINGS: The pancreatic head is visualized and appears unremarkable. The remainder the pancreas is o bscured. No hepatic space-occupying mass lesion is evident. Normal hepatopedal portal venous flow direction. There are multiple dependent intraluminal filling defects of the gallbladder, with acoustical shadowi ng consistent with cholelithiasis. There is gallbladder wall thickening. Verma's sign could not be a ssessed because the patient was sedated and on ventilator. Differential diagnosis includes acute vers us chronic cholecystitis. Common bile duct measures 4 mm, normal. IMPRESSION: Cholelithiasis Gallbladder wall thickening which may be due to acute or chronic cholecystitis Reviewed, dictated and finalized at Location A. Reviewed, dictated and finalized at location A.
--- NOTE | ~2020-10-28 | XR_ITS ---
EXAMINATION: XR abdomen/kub 1V EXAM DATE: 11/27/2020 10:41 INDICATION: Ileus. TECHNIQUE: Frontal projection(s) of the abdomen for interpretation. Comparison is made to prior exami nation from 11/21/2020. FINDINGS: There is a gastrostomy tube with balloon anchor overlying the gastric bubble. Some gas wit hin the stomach. No evidence of dilated air-filled bowel. Small amount of colonic stool and gas. The re is no organomegaly. There are mild bony degenerative changes. IMPRESSION: Nonobstructive bowel gas pattern. Reviewed, dictated and finalized at location A.
--- NOTE | ~2020-10-28 | US_ITS ---
EXAMINATION: US venous doppler [facility] DATE: 10/30/2020 18:09 INDICATION: Lower limb swelling TECHNIQUE: Grayscale ultrasound images without and with compression and Doppler ultrasound images of the bilateral lower extremity veins were obtained. COMPARISON: 09/10/2020 FINDINGS: The visualized portions of right common femoral vein, profunda (deep) femoral vein, femoral vein, pop liteal vein, posterior tibial veins, peroneal veins, gastrocnemius vein and greater saphenous vein ou tflow are patent. The visualized portions of left common femoral vein, profunda femoral vein, femoral vein, popliteal v ein, posterior tibial veins, peroneal veins, gastrocnemius vein and greater saphenous vein outflow ar e patent. Again seen is a mildly enlarged likely reactive left inguinal lymph node measuring 2.0 cm i n maximal short axis diameter with echogenic central fatty hilum. IMPRESSION: 1. No deep venous thrombosis in either lower limb. 2. Persistent likely reactive left inguinal lymphadenopathy. Reviewed, dictated and finalized at location A.
--- NOTE | ~2020-10-28 | XR_ITS ---
EXAMINATION: XR abdomen NG/feed tube insert INDICATION: OG placement TECHNIQUE: Portable AP KUB-NG at 0333 hours COMPARISON: None available FINDINGS: The OG tube is in the stomach. There are diffuse opacities throughout visualized lungs. IMPRESSION: 1. OG tube in the stomach. Reviewed, dictated and finalized at location A. IMPRESSION: 1. OG tube in the stomach.
--- NOTE | ~2020-10-28 | XR_ITS ---
EXAMINATION: XR chest 1V portable INDICATION: Repositioned endotracheal tube TECHNIQUE: Portable AP chest at 0331 hours COMPARISON: 0328 hours FINDINGS: The repositioned endotracheal tube ends approximately 3.5 cm above the cande. The OG tube is in the stomach. There is otherwise no significant change. IMPRESSION: 1. Repositioned endotracheal tube approximately 3.5 cm above the cande, otherwise no significant jaqueline nge. Reviewed, dictated and finalized at location A. IMPRESSION: 1. Repositioned endotracheal tube approximately 3.5 cm above the cande, otherw ise no significant change.
--- NOTE | ~2020-10-28 | XR_ITS ---
EXAMINATION: XR chest 1V portable EXAM DATE: 11/13/2020 05:44 INDICATION: Respiratory failure, intubation. History CHF . TECHNIQUE: Portable AP frontal chest x-ray was obtained. Comparison is made to prior examination from 11/10/2020. FINDINGS: Endotracheal tube tip is 4 centimeters above the cande. There is a left-sided IJ venous l ine. Feeding tube tip is poorly visualized but extending at least to the gastroesophageal junction. There is ill-defined right basilar nonspecific airspace disease. Low lung volumes. There are no sizab le pleural effusions. There is no pneumothorax suspected. The cardiomediastinal silhouette is pro minent but magnified on this AP technique. The bones and soft tissues are unremarkable. There is no significant interval change compared to prior exam. IMPRESSION: 1. Line and tube(s) in position. 2. Stable ill-defined basilar airspace disease. Reviewed, dictated and finalized at location A.
--- NOTE | ~2020-10-28 | XR_ITS ---
EXAMINATION: XR abdomen obstructive series DATE: 11/21/2020 10:27 INDICATION: Abdominal distention. Not tolerating tube feeds. TECHNIQUE: Frontal supine and upright views of the abdomen were obtained. COMPARISON: CT dated 09/10/2020 FINDINGS: Small amount of gas in the stomach surrounding the bulb with a percutaneous gastrostomy tube. Tempera ture probe within a Stephens catheter projecting over the expected location of the bladder. No dilated g as-filled loops of bowel to suggest obstruction. No elena peroneal gas. Right basilar opacities this could represent atelectasis and/or pneumonia. IMPRESSION: 1. Percutaneous gastrostomy tube bulb within the body of the stomach. 2. No free intraperitoneal gas or dilated gas-filled loops of bowel to suggest obstruction. 3. Right basilar opacities which could represent atelectasis or pneumonia. Reviewed, dictated and finalized at location A.
--- NOTE | ~2020-10-28 | XR_ITS ---
XR chest 1V portable 11/03/2020 06:33 Indication: Respiratory arrest. Dyspnea. Procedure: AP portable chest Comparison: Comparison to multiple prior studies sequentially, with oldest reviewed study dated 11/01. Findings: Cardiomegaly. Diffuse bilateral airspace disease is unchanged. There is fissural thickening on the right. Small right pleural effusion. No pneumothorax. Left IJ central line tip in the SVC. En dotracheal tube tip 3.6 cm above the cande. NG tube in the stomach. Impression: 1: No significant change to bilateral airspace disease which may represent pneumonia or edema. 2: Small right pleural effusion. Reviewed, dictated and finalized at location A. Impression: 1: No significant change to bilateral airspace disease which may represent pneu monia or edema. 2: Small right pleural effusion.
--- NOTE | ~2020-10-28 | XR_ITS ---
EXAMINATION: XR chest 1V portable DATE: 11/23/2020 05:38 INDICATION: Respiratory failure TECHNIQUE: frontal view of the chest was obtained. COMPARISON: Chest radiograph dated 11/22/2020 FINDINGS: Tracheostomy tube at the thoracic inlet. Persistent mild predominantly infrahilar opacities in the bi lateral lower lung zones. No pleural effusion or pneumothorax. The cardiomediastinal silhouette is no rmal. IMPRESSION: 1. Mild bilateral infrahilar opacities which could represent pulmonary edema, pneumonia, atelectasis or some combination thereof. Reviewed, dictated and finalized at location A. IMPRESSION: 1. Mild bilateral infrahilar opacities which could represent pulmonary edema, p neumonia, atelectasis or some combination thereof.
[2020-10-28 14:49] LABS: Basophils Absolute Auto 0.1 K/mm3 (0.0-0.1); Basophils Percent Auto 0.8 % (0.2-1.2); Eosinophils Absolute Auto 0.5 K/mm3 (0-0.3); Eosinophils Percent Auto 3.6 % (0-4.4); Hematocrit 29.8 % (42.0-52.0); Hemoglobin 8.8 g/dL (14.0-18.0); Immature Granulocyte Absolute 0.08 K/mm3 (0.00-0.031); Immature Granulocyte Percent A 0.6 % (0-0.5); Mean Corpuscular HGB Conc 29.5 g/dl (32-36); Mean Corpuscular Hemoglobin 27.6 pg (26-34); Mean Corpuscular Volume 93.4 fl (80-100); Monocytes Absolute Auto 1.6 K/mm3 (0.1-0.6); Monocytes Percent Auto 12.1 % (2.6-8.5); Neutrophils Absolute Auto 9.1 K/mm3 (1.3-6.7); Neutrophils Percent Auto 69.9 % (45.5-73.1); Nucleated Red Blood Cells Perc 0.2 % (0.0-0.2); Platelet Count Result 245 k/mm3 (150-375); Red Blood Count 3.19 M/mm3 (4.6-6.20)
[2020-10-28 15:04] LABS: Anion Gap 7 mmol/L (8-16); Blood Urea Nitrogen 69 mg/dL (9-20); Calcium 8.9 mg/dL (8.4-10.2); Carbon Dioxide 26 mmol/L (22-30); Chloride 105 mmol/L (98-107); Estimated CRCL calculation 61 ml/min; Estimated Glomerular Filt Rate 30; Glucose 105 mg/dL (65-110); Potassium 5.6 mmol/L (3.4-5.0); Sodium 138 mmol/L (137-145)
[2020-10-28 15:15] LABS: Hypochromasia 1+ (NORMAL); Platelet Estimate Adequate (Adequate)
[2020-10-28 15:16] LABS: Anisocytosis 2+ (NORMAL)
[2020-10-28] MEDS: SODIUM CHLORIDE 0.9% IV 1,000 ML 999 ML IV CONT (16:16)
--- NOTE | 2020-10-28 16:53 | ED.EXTPRO ---
HPI - Extremity Problem General Chief complaint: Extremity Problem,Nontraumatic Stated complaint: FOOT ULCER Time Seen by Provider: 10/28/20 14:03 Source: patient, EMS and RN notes reviewed Mode of arrival: EMS Limitations: no limitations History of Present Illness HPI Narrative: Patient is 50 years old white male came from long term because of smelling and nonhealing left heel pressure ulcers with possible infection. Patient denies any fever, chills, nausea, vomiting Related Data Home Medications Medication Instructions Recorded Confirmed amlodipine 10 mg PO DAILY 05/15/19 09/09/20 carvedilol 3.125 mg PO BID 05/15/19 09/09/20 gabapentin 300 mg PO TID 05/15/19 09/09/20 Xarelto 2.5 mg PO BID 03/02/20 09/09/20 acetaminophen 325 mg PO ONCE PRN 03/02/20 09/09/20 albuterol sulfate 90 mcg INHALATION TID 03/02/20 09/09/20 cetirizine 10 mg PO DAILY 03/02/20 09/09/20 melatonin 5 mg PO HS 03/02/20 09/09/20 polysaccharide iron complex 150 mg PO DAILY 03/02/20 09/09/20 [Poly-Iron] furosemide 40 mg tablet 60 mg PO DAILY tablet 09/08/20 09/09/20 budesonide-formoterol 2 puff INHALATION Q12H 10/28/20 hydrocodone-acetaminophen 1 tablet PO BID 10/28/20 insulin lispro [Humalog KwikPen 6 unit SUBCUT DAILY 10/28/20 Insulin] Allergies Allergy/AdvReac Type Severity Reaction Status Date / Time No Known Allergies Allergy Verified 10/28/20 13:31 Review of Systems Review of Systems: CONSTITUTIONAL: Denies fever, chills, or sweats. EYES: Denies visual changes, redness, or discharge. ENT: Denies rhinorrhea, congestion, sore throat, or otalgia. CARDIOVASCULAR: Denies chest pain, palpitations, or edema. RESPIRATORY: Denies cough or dyspnea. GASTROINTESTINAL: Denies abdominal pain, nausea, vomiting, or diarrhea. GENITOURINARY: Denies dysuria or hematuria. SKIN: Denies rash or itching. MUSCULOSKELETAL: Denies back pain, joint pain, or myalgia. NEUROLOGIC: Denies headache, numbness, or weakness. PSYCHIATRIC: Denies anxiety or depression. 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 Second toe on the right and 2nd 3rd on the left Family History Family History Father Diabetes mellitus Cerebrovascular accident Mother DVT (deep venous thrombosis) Cerebrovascular accident Sibling Diabetes mellitus Cerebrovascular accident Social History Social History Social History: The patient has been a resident at [facility] for about a year. He smoked remotely as a young man and quit in 1990. No alcohol or illicit substance use. He is not and has no children. All of his immediate family members are . He is not certain who he would want to name
[2020-10-28 17:02] LABS: Lactic Acid Reflex 0.8 mmol/L (0.7-2.1)
[2020-10-28 17:05] LABS: Alanine Aminotransferase 103 U/L (4-50); Albumin Level 3.8 g/dL (3.5-5.1); Alkaline Phosphatase 154 U/L (38-126); Aspartate Amino Transferase 103 U/L (17-59); Bilirubin,Total 0.6 mg/dL (0.2-1.3); CRP 6.5 mg/dL (<1.0)
[2020-10-28 17:07] LABS: INR 1.7; Prothrombin Time 19.7 Seconds (11.1-14.7)
--- NOTE | 2020-10-28 17:07 | PC.NURSE ---
Assumed care of pt at this time. Report from EMMA Solorzano
[2020-10-28 17:08] LABS: Partial Thromboplastin Time 32.9 SECONDS (22.3-36.8)
--- NOTE | 2020-10-28 19:17 | PC.NURSE ---
Assumed care of pt. at this time. Report from EMMA Salinas
--- NOTE | 2020-10-28 20:54 | ADMGEN ---
This patient, Ulices Canas, was admitted to Medical Room 246-01. Patient/family oriented to hospital policies and general routines including ID bracelet, bed and alarms, visiting hours, pain management, procedures, bathroom and other care routines, personal items, smoking policy, room service/diet, and visiting hours. Information on how to activate the Rapid Response Team has been discussed. Patient/Family are encouraged to report perceived risks to care and to ask questions if they do not understand what they are told or what they should do.
--- NOTE | 2020-10-28 22:37 | PM.IMHP ---
H&P: HPI History of Present Illness Date/Time: 10/28/20 22:37 Chief Complaint: Foot wound Narrative: 50-year-old male with past medical history of morbid obesity, obstructive sleep apnea, diabetes mellitus, chronic kidney disease and multiple prior toe amputations who presented to the ER from [facility] for due to a left foot wound. The patient was seen by wound care nurse today and sent in due to foul odor and necrotic looking tissue to the left heel wound. The act exact duration of the foot wound is uncertain. According to the patient he thinks that the wound is been present for about 3 weeks. He reports that started out as a blister. Does not report much pain from the area of the wound. He has been having some chills at the [facility] but no documented fevers. He has been having occasional dry heaves but no real vomiting. He has been having normal bowel movements. He has frequent incontinence of urine. He denies any dysuria or changes in urinary frequency. He does have chronic urinary urgency. He denies any changes in bowel habits. He reports abdominal tenderness on palpation to the right periumbilical region. He does have a palpable ventral hernia in this region that is reducible. He reports that his blood sugars have been ?some up some down. ? he cannot give me a range of his recent glucoses. He reports that he is able to stand to pivot and transfer and will mobilize around the [place] [facility] utilizing his feet in scooting the wheelchair. Review of Systems Review of Systems: 12 systems were reviewed with pertinent positives and negatives per HPI. Except as documented in the HPI, all other systems were reviewed and are negative. 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 Chronic kidney disease, stage 3 Baseline creatinine is between 1.7-2.4 Chronic obstructive pulmonary disease Chronic respiratory failure with hypoxia, on home oxygen therapy Congestive heart failure Current use of alf anticoagulation Diabetes mellitus with diabetic nephropathy, with long-term current use of insulin Diabetic peripheral neuropathy Diastolic dysfunction DVT (deep venous thrombosis) Essential hypertension Gastroesophageal reflux disease History of cellulitis Right lower extremity Insulin dependent diabetes mellitus Lipodermatosclerosis of both lower extremities Morbid obesity Obesity hypoventilation syndrome With PFTs demonstrating severe restrictive ventilatory defect on chronic home O2 of 3 L. Obstructive sleep apnea Osteoarthritis Surgical History Surgical History (Updated 10/28/20 @ 22:51 by Amanda Arzate DO) Amputation of one or more toes Amputation of the right 4th toe, amputation of the 2nd and 3rd toe of the left foot Family History Family History Father Diabetes mellitus Cerebrovascular accident Mother DVT (deep venous thrombosis) Cerebrovascular accident Sibling Diabetes mellitus Cerebrovascular accident Social History Social History (Updated 10/28/20 @ 22:56 by Amanda Arzate DO) Social History: The patient has been a resident at [facility] since 2018. He smoked remotely as a young man and quit in 1990. He smoked up to 3 packs per day when he did smoke. He quit drinking alcohol in 1990 but was never a daily drink or heavy drinker. He denies illicit substance use. He is not and has no children. All of his immediate family members are . He is not certain who he would want to name as his surrogate decision maker. At this time he is considered to be a full code. Smoking packs per day: 1.5 Smoking cigarettes per day: 30.0 Years smoked: 15 Smoking pack-years: 22.50 Smoking status: Former smoker Tobacco type: cigarettes Alcohol intake: nev
[2020-10-29] VITALS (9 sets, daily range): BP systolic 132–188; BP diastolic 62–71; PULSE 72–85; RESP 18–22; TEMP 36.3–36.7; O2SAT 90–97
[2020-10-29] MEDS: MELATONIN 5 MG TABLET PO ×2 (00:39→21:29)
[2020-10-29] MEDS: SODIUM CHLORIDE 0.9% IV 1,000 ML 80 ML IV CONT (01:24)
[2020-10-29] MEDS: ACETAMINOPHEN 325 MG TABLET 650 MG PO (04:26)
[2020-10-29 05:44] LABS: Basophils Absolute Auto 0.1 K/mm3 (0.0-0.1); Basophils Percent Auto 0.4 % (0.2-1.2); Eosinophils Absolute Auto 0.3 K/mm3 (0-0.3); Eosinophils Percent Auto 1.9 % (0-4.4); Hematocrit 25.7 % (42.0-52.0); Hemoglobin 7.7 g/dL (14.0-18.0); Immature Granulocyte Absolute 0.11 K/mm3 (0.00-0.031); Immature Granulocyte Percent A 0.8 % (0-0.5); Lymphocytes Absolute Auto 1.19 K/mm3 (0.9-3.2); Lymphocytes Percent Auto 8.7 % (18.3-44.2); Mean Corpuscular Hemoglobin 27.8 pg (26-34); Mean Corpuscular Volume 92.8 fl (80-100); Mean Platelet Volume 11.4 fl (7.4-10.4); Monocytes Absolute Auto 1.3 K/mm3 (0.1-0.6); Monocytes Percent Auto 9.8 % (2.6-8.5); Neutrophils Absolute Auto 10.7 K/mm3 (1.3-6.7); Neutrophils Percent Auto 78.4 % (45.5-73.1); Nucleated Red Blood Cells Perc 0.2 % (0.0-0.2); Platelet Count Result 233 k/mm3 (150-375); Red Blood Count 2.77 M/mm3 (4.6-6.20); Red Cell Distribution Width 16.1 % (11.5-14.5); White Blood Count 13.6 K/mm3 (4.5-10.0)
[2020-10-29 05:54] LABS: Alanine Aminotransferase 78 U/L (4-50); Albumin Level 3.2 g/dL (3.5-5.1); Alkaline Phosphatase 133 U/L (38-126); Anion Gap 8 mmol/L (8-16); Aspartate Amino Transferase 70 U/L (17-59); Bilirubin,Total 0.7 mg/dL (0.2-1.3); Blood Urea Nitrogen 59 mg/dL (9-20); Calcium 8.2 mg/dL (8.4-10.2); Carbon Dioxide 25 mmol/L (22-30); Chloride 105 mmol/L (98-107); Estimated CRCL calculation 63 ml/min; Estimated Glomerular Filt Rate 32; Glucose 102 mg/dL (65-110); Potassium 4.9 mmol/L (3.4-5.0); Sodium 138 mmol/L (137-145)
[2020-10-29] MEDS: POLYSACCHARIDE IRON COMPLEX 150 MG CAPSULE PO (08:00)
[2020-10-29] MEDS: carvediloL 3.125 MG TABLET PO ×2 (08:00→18:00)
[2020-10-29] MEDS: amLODIPine BESYLATE 5 MG TABLET 10 MG PO (08:00)
[2020-10-29] MEDS: RIVAROXABAN 2.5 MG TABLET PO (08:00)
[2020-10-29] MEDS: MICONAZOLE NITRATE 2% CREAM 30 GM TUBE 1 APPLIC TOPICAL ×2 (08:01→18:00)
[2020-10-29] MEDS: GABAPENTIN 300 MG CAPSULE PO ×3 (08:01→18:00)
[2020-10-29] MEDS: LORATADINE 10 MG TABLET PO (08:01)
[2020-10-29] MEDS: HYDROcodone/acetaminophen (*CRX) 5-325 MG TABLET 1 TAB PO ×2 (08:06→17:59)
[2020-10-29 08:11] LABS: Hepatitis B Surface Antigen Negative (Negative)
[2020-10-29 08:17] LABS: HAV RESULT Negative (Negative); Hepatitis B Core IgM Result Negative (Negative)
[2020-10-29 08:29] LABS: Hepatitis C Virus Antibody Negative (Negative)
[2020-10-29 08:54] LABS: Glucose Point of Care 103 mg/dl (65-105)
[2020-10-29] MEDS: INSULIN GLARGINE (*BKC) 100 UNITS/ML 20 UNITS SUB-Q (09:10)
[2020-10-29] MEDS: INSULIN ASPART (*BKC) 100 UNITS/ML 6 UNITS SUB-Q (09:11)
[2020-10-29] MEDS: COLLAGENASE OINT 30 GM TUBE 1 APPLIC TOPICAL (12:45)
--- NOTE | 2020-10-29 13:10 | PM.IMPN ---
Progress Note: A&P Assessment and Plan (1) Diabetic foot infection: Code(s): E11.628 - Type 2 diabetes mellitus with other skin complications; L08.9 - Local infection of the skin and subcutaneous tissue, unspecified Status: Acute Assessment and Plan: left foot wound with necrotic or eschar changes noted - wound care was consulted who recommended surgical evaluation - x-ray of the foot shows no osteomyelitis - ROSA showed no significant arterial occlusive disease - will continue vancomycin and Zosyn at this time - surgery consult, appreciate their recommendations (2) Acute hyperkalemia: Code(s): E87.5 - Hyperkalemia Status: Acute Assessment and Plan: resolved, will recheck in the morning (3) Diabetes mellitus with diabetic nephropathy, with long-term current use of insulin: Qualifiers: Diabetes mellitus type: type 2 Qualified Code(s): E11.21 - Type 2 diabetes mellitus with diabetic nephropathy; Z79.4 - watermelon harvesting supervisor (current) use of insulin Code(s): E11.21 - Type 2 diabetes mellitus with diabetic nephropathy; Z79.4 - watermelon harvesting supervisor (current) use of insulin Status: Acute Assessment and Plan: last glucose 103 - will decrease initial Lantus and scheduled insulin due to dietary changes while hospitalized. If he runs high, this can be increased -Last A1C 7.5 -monitor, continue SSI and ACHS accuchecks (4) Obesity hypoventilation syndrome: Code(s): E66.2 - Morbid (severe) obesity with alveolar hypoventilation Status: Acute Assessment and Plan: With PFTs demonstrating severe restrictive ventilatory defect on chronic home O2 of 3 L in the past -Continue o2 but wean down to 3L (now on 5) (5) Diastolic HF (heart failure): Code(s): I50.30 - Unspecified diastolic (congestive) heart failure Status: Acute Assessment and Plan: Noted on echo in the past -pt does have some pitting edema to the LE -stop fluids, restart home furosemide (6) Transaminitis: Code(s): R74.01 - Elevation of levels of liver transaminase levels Status: Acute Assessment and Plan: Improving on labs today -hepatitis screen neg -last CT showed a normal liver August 2020 -Could be due to fatty liver due to patients size -if it worsens, may consider RUQ u/s (7) Morbid obesity: Code(s): E66.01 - Morbid (severe) obesity due to excess calories Status: Acute Assessment and Plan: Would benefit from weight loss or even weight loss sx (8) Anticoagulant long-term use: Code(s): Z79.01 - nursing home (current) use of anticoagulants Status: Acute Assessment and Plan: the patient is on Xarelto 2.5 Q12 due to history of DVT from what looks it looks like in the EMR -The dose is not usual for prophylactic dosing or DVT treatment. It is consistent with a coronary artery disease dosing but cardiology note from August 2020 states this was due to chronic lower extremity DVTs with no mention coronary disease past treatment - depending on what surgery recommends with tx, may consider adjusting this dose. Time Spent With Patient Time with patient: 25 - 35 minutes Subjective Date/time seen: 10/29/20 13:10 Interval history: Pt is a 50-year-old male here for foot wound. Patient was seen today and has no complaints. Pt denies vomiting, fevers, chills, constipation, diarrhea, chest pain, sob, or abdominal pain. He states he has occasional nausea but is not associated with food or eating. He states he is usually on oxygen at the facility and thinks it is because he has COPD but isn't really sure. He says that he was bed-bound for a while but has been walking a little bit the SNF but he still feels very weak. Review of Systems Review of Systems: All systems reviewed & are unremarkable except as noted in HPI and below Exam Narrative: General: overweight patient resting comfortably in be
[2020-10-29] MEDS: INSULIN ASPART (*BKC) 100 UNITS/ML SUB-Q ×2 (13:41→18:55)
--- NOTE | 2020-10-29 14:02 | PM.CNGS ---
Assessment and Plan Assessment and plan (1) Ulcer of left heel: Code(s): L97.429 - Non-pressure chronic ulcer of left heel and midfoot with unspecified severity Status: Acute Assessment and Plan: The patient has a large unstageable left heel ulcer with black eschar overlying the wound bed. No obvious purulent drainage, but there is a foul odor to this wound, which is concerning for the extent of the wound under the eschar. No significant surrounding cellulitis. Left foot x-rays show no evidence of osteomyelitis. ABIs are within normal limits, suggesting no significant arterial occlusive disease. Would agree with continuing broad-spectrum IV antibiotics. No active drainage that I could see on my assessment that would warrant a culture. He could potentially require excisional debridement of this left heel ulcer to unroof the overlying eschar and evaluate the deeper tissues. With the appearance of the wound and his severe neuropathy, I believe he could tolerate this at the bedside if needed. I have discussed the case with Dr. Scott. We will continue local wound care for now per the wound care nurse recommendations with Santyl enzymatic debridement. Dr. Scott will be evaluating the patient separately to decipher if he will need excisional debridement of the left heel ulcer. Thank you for allowing us to see the patient in consultation and we will continue to follow along with you. (2) Insulin dependent diabetes mellitus: Status: Chronic Assessment and Plan: Glucose on this hospitalization appear well-controlled in the low 100's. Glycemic control is important in wound healing and management. Continue to monitor. (3) CHF (congestive heart failure): Qualifiers: Heart failure chronicity: unspecified Heart failure type: unspecified Qualified Code(s): I50.9 - Heart failure, unspecified Code(s): I50.9 - Heart failure, unspecified Status: Acute (4) Chronic obstructive pulmonary disease: Code(s): J44.9 - Chronic obstructive pulmonary disease, unspecified Status: Acute (5) Obstructive sleep apnea: Code(s): G47.33 - Obstructive sleep apnea (adult) (pediatric) Status: Acute (6) Morbid obesity: Code(s): E66.01 - Morbid (severe) obesity due to excess calories Status: Chronic Assessment and Plan: Encouraged increasing activity and lifestyle changes to promote weight loss, which would benefit multiple of his medical issues as well. (7) Anticoagulant long-term use: Code(s): Z79.01 - [facility]P (current) use of anticoagulants Status: Acute Assessment and Plan: Currently on low dose of Xarelto 2.5 mg Q12H. Per previous Cardiology notes, he is on this for hx DVT, but this is not the typical dose. This dose is more typically used with CAD or PAD, but there is no mentioned history of such. Would hold off on increasing this dose if felt necessary by medicine until he is evaluated by Dr. Scott for any possibility of excisional debridement tomorrow. 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 Scott. History of Present Illness Consult details Consult date: 10/29/20 Reason for consult: wound care (Left heel ulcer) Requesting physician: Jessenia Camejo PA-C Narrative: This is a 50 yo morbidly obese male with multiple medical problems including, but not limited to, insulin-dependent diabetes mellitus, peripheral neuropathy, congestive heart failure, COPD, LEONIDAS, chronic respiratory failure, and history of multiple toe amputations, who pr
[2020-10-29 14:03] LABS: Glucose Point of Care 127 mg/dl (65-105)
[2020-10-29] MEDS: ENOXAPARIN 100 MG/ML SYRINGE 185 MG SUB-Q (18:22)
[2020-10-29] MEDS: INSULIN GLARGINE (*BKC) 100 UNITS/ML 15 UNITS SUB-Q (18:55)
[2020-10-29 19:27] LABS: Glucose Point of Care 122 mg/dl (65-105)
[2020-10-29 22:15] LABS: Glucose Point of Care 106 mg/dl (65-105)
[2020-10-30] VITALS (9 sets, daily range): BP systolic 109–146; BP diastolic 58–75; PULSE 58–70; RESP 16–22; TEMP 36.3–36.8; O2SAT 92–96; BMI 54.3
[2020-10-30 05:52] LABS: Hematocrit 26.9 % (42.0-52.0); Hemoglobin 7.6 g/dL (14.0-18.0); Mean Corpuscular HGB Conc 28.3 g/dl (32-36); Mean Corpuscular Hemoglobin 27.4 pg (26-34); Mean Corpuscular Volume 97.1 fl (80-100); Mean Platelet Volume 11.7 fl (7.4-10.4); Platelet Count Result 214 k/mm3 (150-375); Red Blood Count 2.77 M/mm3 (4.6-6.20); Red Cell Distribution Width 16.6 % (11.5-14.5); White Blood Count 11.1 K/mm3 (4.5-10.0)
[2020-10-30 06:05] LABS: Alanine Aminotransferase 70 U/L (4-50); Albumin Level 3.1 g/dL (3.5-5.1); Alkaline Phosphatase 131 U/L (38-126); Anion Gap 9 mmol/L (8-16); Aspartate Amino Transferase 55 U/L (17-59); Bilirubin,Total 0.7 mg/dL (0.2-1.3); Blood Urea Nitrogen 62 mg/dL (9-20); CRP 7.4 mg/dL (<1.0); Calcium 8.2 mg/dL (8.4-10.2); Carbon Dioxide 25 mmol/L (22-30); Chloride 102 mmol/L (98-107); Estimated CRCL calculation 61 ml/min; Estimated Glomerular Filt Rate 30; Glucose 125 mg/dL (65-110); Potassium 5.1 mmol/L (3.4-5.0); Sodium 136 mmol/L (137-145)
[2020-10-30] MEDS: FUROSEMIDE 20 MG TABLET 60 MG PO (08:41)
[2020-10-30] MEDS: POLYSACCHARIDE IRON COMPLEX 150 MG CAPSULE PO (08:41)
[2020-10-30] MEDS: GABAPENTIN 300 MG CAPSULE PO ×3 (08:41→17:58)
[2020-10-30] MEDS: amLODIPine BESYLATE 5 MG TABLET 10 MG PO (08:42)
[2020-10-30] MEDS: carvediloL 3.125 MG TABLET PO ×2 (08:42→17:58)
[2020-10-30] MEDS: ENOXAPARIN 100 MG/ML SYRINGE 185 MG SUB-Q ×2 (08:43→17:59)
[2020-10-30] MEDS: MICONAZOLE NITRATE 2% CREAM 30 GM TUBE 1 APPLIC TOPICAL ×2 (08:44→17:59)
[2020-10-30] MEDS: LORATADINE 10 MG TABLET PO (08:44)
[2020-10-30] MEDS: HYDROcodone/acetaminophen (*CRX) 5-325 MG TABLET 1 TAB PO ×2 (08:53→17:58)
[2020-10-30 09:10] LABS: Glucose Point of Care 101 mg/dl (65-105)
[2020-10-30] MEDS: INSULIN ASPART (*BKC) 100 UNITS/ML SUB-Q ×3 (09:32→18:36)
--- NOTE | 2020-10-30 09:32 | PM.IMPN ---
Progress Note: A&P Assessment and Plan (1) Diabetic foot infection: Code(s): E11.628 - Type 2 diabetes mellitus with other skin complications; L08.9 - Local infection of the skin and subcutaneous tissue, unspecified Status: Acute Assessment and Plan: left foot wound with necrotic or eschar changes noted -Sx has evaluated the pt and pt is currently on Betadine and dressing changes and this will be monitored and may need surgical intervention. - x-ray of the foot shows no osteomyelitis - ROSA showed no significant arterial occlusive disease - will continue vancomycin and Zosyn at this time -blood cultures positive for gram variable bacilli - surgery consult, appreciate their additional recommendations (2) Acute hyperkalemia: Code(s): E87.5 - Hyperkalemia Status: Acute Assessment and Plan: 5.1 today and mild -monitor with daily labs -continue oral lasix (3) Diabetes mellitus with diabetic nephropathy, with long-term current use of insulin: Qualifiers: Diabetes mellitus type: type 2 Qualified Code(s): E11.21 - Type 2 diabetes mellitus with diabetic nephropathy; Z79.4 - termite treater (current) use of insulin Code(s): E11.21 - Type 2 diabetes mellitus with diabetic nephropathy; Z79.4 - FDC (current) use of insulin Status: Acute Assessment and Plan: last glucose 101 - Continue Lantus and scheduled insulin (dose slight decreased due to dietary changes while hospitalized). If he runs high, this can be increased -Last A1C 7.5 -monitor, continue SSI and ACHS accuchecks (4) Obesity hypoventilation syndrome: Code(s): E66.2 - Morbid (severe) obesity with alveolar hypoventilation Status: Acute Assessment and Plan: With PFTs demonstrating severe restrictive ventilatory defect on chronic home O2 of 3 L in the past -Currently on home settings (down from 6L) (5) Diastolic HF (heart failure): Code(s): I50.30 - Unspecified diastolic (congestive) heart failure Status: Acute Assessment and Plan: Noted on echo in the past -pt does have some pitting edema to the LE -monitor kidney function on lasix (6) Transaminitis: Code(s): R74.01 - Elevation of levels of liver transaminase levels Status: Acute Assessment and Plan: Improving on labs today -hepatitis screen neg -last CT showed a normal liver August 2020 -Could be due to fatty liver due to patients size -if it worsens, may consider RUQ u/s (7) Morbid obesity: Code(s): E66.01 - Morbid (severe) obesity due to excess calories Status: Acute Assessment and Plan: Would benefit from weight loss or even weight loss sx (8) Anticoagulant long-term use: Code(s): Z79.01 - termite treater (current) use of anticoagulants Status: Acute Assessment and Plan: the patient is on Xarelto 2.5 Q12 due to history of DVT from what looks it looks like in the EMR -Pt states in the last 2 years he had a LE DVT but cannot remember details. He says this is the only time he had a blood clot and has denied hx of another DVT, PE, afib, or cardiac disease. no hx of DVT or PE in our system back from 04/2019 -The dose is not usual for prophylactic dosing or DVT treatment. It is consistent with a coronary artery disease dosing but cardiology note from August 2020 states this was due to chronic lower extremity DVTs with no mention coronary disease past treatment -pt on full dose lovenox now due to possible sx (watch kidney function on this). If he drops his CrCl to <30, adjust to QD -will do LE u/s to assess for clots. If pt has no blood clots, consider adjusting xaralto dose to prophylactic dosing 10mg Qd since he is high risk and lays in bed most of the day. If he does have a clot would adjust to 20mg qd. (adjust as needed for renal function) (9) Bacteremia: Code(s): R78.81 - Bacteremia Status: Acute Assessment an
[2020-10-30] MEDS: INSULIN GLARGINE (*BKC) 100 UNITS/ML 15 UNITS SUB-Q ×2 (09:33→18:36)
[2020-10-30 12:47] LABS: Glucose Point of Care 100 mg/dl (65-105)
--- NOTE | 2020-10-30 13:57 | WPDINFPN2 ---
Progress Note: A&P Assessment and Plan (1) Bacteremia: Code(s): R78.81 - Bacteremia Status: Acute Assessment and Plan: 1. Polymicrobial bacteremia with infection, L heel source 2. DM 3. Lymphedema REC PipTazo #2. 7-10 days IV therapy, depending on clinical course. Source control per Surgery. No Vanc. Call if Qs Subjective Date/time seen: 10/30/20 13:58 Objective Data Vital Signs Vital Signs: Vital Signs - 24 hr 10/29/20 14:00 10/29/20 18:00 10/29/20 22:00 Temperature 36.3 C L 36.7 C Pulse Rate 74 74 72 Respiratory Rate 20 18 Blood Pressure 141/69 H 132/62 Pulse Oximetry 93 97 10/29/20 22:37 10/30/20 06:00 10/30/20 08:42 Temperature 36.3 C L Pulse Rate 58 L 64 Respiratory Rate 18 Blood Pressure 109/58 L Pulse Oximetry 91 96 10/30/20 09:05 10/30/20 09:08 Temperature Pulse Rate Respiratory Rate Blood Pressure Pulse Oximetry 93 96 Intake/Output Intake/Output: Intake & Output 10/27/20 10/28/20 10/29/20 10/30/20 23:59 23:59 23:59 23:59 Intake Total 1550 2880 600 Balance 1550 2880 600 Meds/Results Medications: Active Medications Generic Name Dose Route Start Last Admin Trade Name Freq PRN Reason Stop Dose Admin Acetaminophen 650 mg 10/28/20 22:30 10/29/20 04:26 Acetaminophen 325 Mg Tablet PO 650 mg Q6H PRN Administration Pain (Scale Score 1-3) Hydrocodone Bitart/Acetaminophen 1 tab 10/29/20 09:00 10/30/20 08:53 Hydrocodone/Acetaminophen (*Crx) 5-325 Mg Tablet PO 1 tab BID JONNA Administration Albuterol 2 puff 10/28/20 22:30 Albuterol Sulfate (*Sp) Aerosol 1 Puff INHALATION TID PRN Shortness Of Breath Amlodipine Besylate 10 mg 10/29/20 09:00 10/30/20 08:42 Amlodipine Besylate 5 Mg Tablet PO 10 mg DAILY JONNA Administration Budesonide/Formoterol Fumarate 2 puff 10/29/20 08:00 10/30/20 09:07 Budesonide/Form 80-4.5 Mcg (*Sp) INHALATION 2 puff Q12HRT JONNA Administration Carvedilol 3.125 mg 10/29/20 08:00 10/30/20 08:42 Carvedilol 3.125 Mg Tablet PO 3.125 mg BIDWM JONNA Administration Collagenase 1 applic 10/29/20 09:00 10/30/20 08:44 Collagenase Oint 30 Gm Tube TOPICAL Not Given DAILY JONNA Dextrose 12.5 gm 10/28/20 22:25 Dextrose 50% 25 Gm/50 Ml Syringe IV PUSH PRN PRN Hypoglycemia Protocol Diltiazem HCl 120 mg 10/29/20 09:00 10/30/20 08:41 Diltiazem Hcl Cd 120 Mg Cap.Sa.24h PO 120 mg QAM JONNA Administration Enoxaparin Sodium 185 mg 10/29/20 18:00 10/30/20 08:43 Enoxaparin 100 Mg/Ml Syringe SUB-Q 185 mg Q12H JONNA Administration Furosemide 60 mg 10/30/20 09:00 10/30/20 08:41 Furosemide 20 Mg Tablet PO 60 mg DAILY JONNA Administration Gabapentin 300 mg 10/29/20 09:00 10/30/20 12:38 Gabapentin 300 Mg Capsule PO 300 mg TID JONNA Administration Glucagon 1 mg 10/28/20 22:25 Glucagon For Inj 1 Mg Vial IM PRN PRN Hypoglycemia Protocol Glucose 15 gm 10/28/20 22:25 Glucose Oral Gel 15 Gm Of Glucse In 37.5 Gm Tube PO PRN PRN Hypoglycemia Protocol Piperacillin/Tazobactam/Dextrose 3.375 gm in 50 mls @ 100 mls/hr 10/29/20 00:00 10/30/20 12:37 Zosyn 3.375 Gm/D5w 50ml Pm IVPB 100 mls/hr Q6H JONNA Administration Dextrose 1,000 mls @ 100 mls/hr 10/28/20 22:25 Dextrose 5% 1,000 Ml IVPB PRN PRN Hypoglycemia Protocol Insulin Aspart 3 - 6 units 10/29/20 08:00 10/30/20 13:33 Insulin Aspart (*Bkc) 100 Units/Ml SUB-Q Not Given TIDWM JONNA Protocol Insulin Aspart 4 units 10/29/20 12:00 10/30/20 13:32 Insulin Aspart (*Bkc) 100 Units/Ml SUB-Q 4 units TIDWM JONNA Administration Insulin Glargine 15 units 10/29/20 17:00 10/30/20 09:33 Insulin Glargine (*Bkc) 100 Units/Ml SUB-Q 15 units BID JONNA Administration Loratadine 10 mg 10/29/20 09:00 10/30/20 08:44 Loratadine 10 Mg Tablet PO 10 mg QAM JONNA Administration Maryanne
--- NOTE | 2020-10-30 14:24 | PM.PNGS ---
Progress Note: A&P Assessment and Plan (1) Ulcer of left heel: Code(s): L97.429 - Non-pressure chronic ulcer of left heel and midfoot with unspecified severity Status: Acute Assessment and Plan: Unstageable left heel ulcer. No significant surrounding cellulitis. Now with findings of polymicrobial bacteremia. ID consulted. Depending on how the patient progresses and how this appears tomorrow, likely will require excisional debridement. Continue local wound care with betadine swabs. (2) Bacteremia: Code(s): R78.81 - Bacteremia Status: Acute Assessment and Plan: Blood cultures showing growth of Proteus Mirabilis and Morganella morganii, final results pending. ID consulted, suspect left heel ulcer to be source. Continue IV Zosyn per ID recommendations. WBC trending down. (3) Insulin dependent diabetes mellitus: Status: Chronic (4) CHF (congestive heart failure): Qualifiers: Heart failure chronicity: unspecified Heart failure type: unspecified Qualified Code(s): I50.9 - Heart failure, unspecified Code(s): I50.9 - Heart failure, unspecified Status: Acute (5) Anticoagulant long-term use: Code(s): Z79.01 - parts counterman (current) use of anticoagulants Status: Acute Assessment and Plan: Continue Lovenox for possible surgical debridement as mentioned above. Hospitalist plans to get yajaira. lower ext venous dopplers and if no DVTs, then will plan on adjusting to DVT prophylactic dose of Xarelto once restarted. 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 Scott. Subjective Subjective Date/Time Seen: 10/30/20 14:24 Patient reports: no new complaints and afebrile Interval history: Patient seen today. Denies any specific complaints. No pain except for with dressing changes. Exam Const: General: no acute distress and awake Nutritional Appearance: obese morbidly obese Skin: Other: Left heel ulcer with black eschar overlying wound, still majority of this is very firm. No evidence of surrounding cellulitis. No active drainage. Small superficial dry wound on the lateral 5th toe. Bilateral lower legs with chronic venous stasis skin changes, neena appearance and scaly skin, no open wounds or cellulitis. Bilateral feet have some mild generalized edema, without unilateral swelling. Extrem: Right lower extremity: foot Details: vascular exam (Unable to palpate, but able to doppler DP and PT pulses) and other (Neuropathy with no light touch sensation of entire foot) Left lower extremity: foot Details: vascular exam (Unable to palpate, but able to doppler DP and PT pulses) and other (Neuropathy with no light touch sensation of entire foot); no unusual warmth and no crepitus Psych: Mental Status: mental status grossly normal Insight: Poor insight present (Psych) Objective Data Vital Signs Vital Signs: Vital Signs - 24 hr 10/29/20 18:00 10/29/20 22:00 10/29/20 22:37 Temperature 98.1 F Pulse Rate 74 72 Respiratory Rate 18 Blood Pressure 132/62 Pulse Oximetry 97 91 10/30/20 06:00 10/30/20 08:42 10/30/20 09:05 Temperature 97.3 F L Pulse Rate 58 L 64 Respiratory Rate 18 Blood Pressure 109/58 L Pulse Oximetry 96 93 10/30/20 09:08 Temperature Pulse Rate Respiratory Rate Blood Pressure Pulse Oximetry 96 Intake/Output Intake/Output: Intake & Output 10/27/20 10/28/20 10/29/20 10/30/20 23:59 23:59 23:59 23:59 Intake Total 1550 2880 600 Balance
--- NOTE | 2020-10-30 16:38 | WPDANESEPP ---
Anes - Eval Pre Procedure Procedure: Operation Date: 10/31/20 13:30 Proposed Procedures p Incision and Drainage of Left Heel Ulcer - Brennan Scott MD Date/Time: 10/30/20 16:38 Pre Op Diagnosis: Diabetic foot infection, SHAKIRA Patient Data Age: 50 Gender: M Height: 1.85 m Weight: 186.9 kg Last Vital Signs Temp 97.3 F L 10/30/20 06:00 Pulse 64 10/30/20 08:42 Resp 18 10/30/20 06:00 BP 109/58 L 10/30/20 06:00 Pulse Ox 96 10/30/20 09:08 Allergies Allergy/AdvReac Type Severity Reaction Status Date / Time No Known Allergies Allergy Verified 10/28/20 13:31 Home Medications Medication Instructions Recorded Confirmed Type amlodipine 10 mg PO DAILY 05/15/19 10/28/20 History carvedilol 3.125 mg PO BID 05/15/19 10/28/20 History gabapentin 300 mg PO TID 05/15/19 10/28/20 History Xarelto 2.5 mg PO BID 03/02/20 10/28/20 History acetaminophen 650 mg PO Q4H PRN 03/02/20 10/28/20 History albuterol sulfate 2 puff INHALATION TID PRN 03/02/20 10/28/20 History cetirizine 10 mg PO DAILY 03/02/20 10/28/20 History melatonin 5 mg PO HS 03/02/20 10/28/20 History polysaccharide iron complex 150 mg PO DAILY 03/02/20 10/28/20 History [Poly-Iron] Lantus U-100 Insulin 20 unit SUBCUT BID #0 ml 03/06/20 10/28/20 Rx furosemide 40 mg tablet 60 mg PO DAILY tablet 09/08/20 10/28/20 History clotrimazole 1 applic TOPICAL BID 30 Days #15 g 09/25/20 10/28/20 Rx diltiazem HCl 120 mg PO QAM 30 Days #30 cap 09/25/20 10/28/20 Rx budesonide-formoterol 2 puff INHALATION Q12H 10/28/20 10/28/20 History collagenase clostridium histo. 1 applic TOPICAL DAILY 10/28/20 10/28/20 History [Santyl] hydrocodone-acetaminophen 1 tablet PO BID PRN 10/28/20 10/28/20 History insulin lispro [Humalog KwikPen 6 unit SUBCUT TID 10/28/20 10/28/20 History Insulin] Laboratory Tests 10/29/20 10/29/20 10/30/20 18:53 21:34 05:38 WBC 11.1 K/mm3 H K/mm3 (4.5-10.0) RBC 2.77 M/mm3 L M/mm3 (4.6-6.20) Hgb 7.6 g/dL L g/dL (14.0-18.0) Hct 26.9 % L % (42.0-52.0) MCV 97.1 fl fl (80-100) MCH 27.4 pg pg (26-34) MCHC 28.3 g/dl L g/dl (32-36) RDW 16.6 % H % (11.5-14.5) Plt Count 214 k/mm3 k/mm3 (150-375) MPV 11.7 fl H fl (7.4-10.4) Sodium Potassium Chloride Carbon Dioxide Anion Gap BUN Creatinine Estim Creat Clear Calc Estimated GFR Glucose POC Capillary Glucose 122 mg/dl H mg/dl 106 mg/dl H mg/dl (65-105) (65-105) Calcium Total Bilirubin Direct Bilirubin AST ALT Alkaline Phosphatase C-Reactive Protein Total Protein Albumin 10/30/20 10/30/20 10/30/20 05:38 09:08 12:15 WBC RBC Hgb Hct MCV MCH MCHC RDW Plt Count MPV Sodium 136 mmol/L L mmol/L (137-145) Potassium 5.1 mmol/L H mmol/L (3.4-5.0) Chloride 102 mmol/L mmol/L (98-107) Carbon Dioxide 25 mmol/L mmol/L (22-30) Anion Gap 9 mmol/L mmol/L (8-16) BUN 62 mg/dL H mg/dL (9-20) Creatinine 2.30 mg/dL H mg/dL (0.7-1.3) Estim Creat Clear Calc 61 ml/min ml/min Estimated GFR 30 L (59 - ) Glucose 125 mg/dL H mg/dL (65-110) POC Capillary Glucose 101 mg/dl mg/dl 100 mg/dl mg/dl (65-105) (65-105) Calcium 8.2 mg/dL L mg/dL (8.4-10.2) Total Bilirubin 0.7 mg/dL mg/dL (0.2-1.3) Direct Bilirubin 0.0 mg/dL mg/dL (0-0.3) AST 55 U/L U/L (17-59) ALT 70 U/L H U/L (4-50) Alkaline Phosphatase 131 U/L H U/L (38-126) C-Reactive Protein 7.4 mg/
[2020-10-30 18:44] LABS: Glucose Point of Care 93 mg/dl (65-105)
--- NOTE | 2020-10-30 19:23 | CONS_ITS ---
DATE OF CONSULTATION: 10/30/2020 REASON FOR CONSULTATION: Bacteremia. HISTORY OF PRESENT ILLNESS: A 50-year-old male known to me from the past. He has had previous group B strep bacteremia from lower extremity cellulitis. He has a left heel ulcer, which has become necrotic in recent weeks despite wound care at his snf. Due to worsening appearance of his heel ulcer, he was sent to the emergency room on the evening of the and was admitted. He is now on piperacillin day 2, also vancomycin and consultation requested. Positive blood cultures today. The patient has peripheral neuropathy and minimal sensation in his foot. He feels no pain. He had no chills, sweats or fever prior to admission and no antibiotic use prior to admission. No immunosuppressants. PRESENT MEDICATIONS: See above. HABITS: Ex-smoker. No alcohol. No illicit drugs. ALLERGIES: NONE KNOWN. PAST MEDICAL HISTORY: Diabetes mellitus, morbid obesity, lymphedema, stage 3 renal insufficiency, COPD, home O2, peripheral neuropathy, diastolic dysfunction, hypertension, GERD, LEONIDAS, osteoarthritis, previous toe amputations, left foot. FAMILY HISTORY: Stroke, diabetes. SOCIAL HISTORY: shelter resident x3 years. No children. Single. No immediate family. REVIEW OF SYSTEMS: Hyperglycemia. Otherwise, 5-point review is negative. PHYSICAL EXAMINATION: GENERAL: Middle-aged male who appears older than his actual age. No acute distress. EENT: Conjunctivae are normal. The oral mucosa is well hydrated. NECK: No masses or meningismus. LUNGS: Clear to auscultation. VITAL SIGNS: 64, 109/58, 18. Afebrile. ABDOMEN: Massively obese. Tenderness right lower quadrant without guarding. Normal bowel sounds. EXTREMITIES: He has a 4 cm gangrenous ulcer posteriorly on the plantar left heel. He has lymphedema changes. No cellulitis. RADIOLOGY: Foot x-ray shows no bone destruction or osteolysis otherwise. LABORATORY DATA: One set of blood cultures with morganella and 2 sets with Proteus mirabilis. White blood cell count 11.1, down from 13.0 on admission. Hemoglobin 7.6, platelets are 214, differential is normal. He has mild hyponatremia. BUN 62, creatinine 2.3. Elevated transaminases. Other liver function tests reviewed. UA not repeated. Hepatitis panel nonreactive. ASSESSMENT: 1. Polymicrobial bacteremia, left heel source with superficial and perhaps subcutaneous gangrene. Other sources are unlikely including lower GI, hepatobiliary, pulmonary, primary bloodstream, urine. 2. Renal insufficiency. 3. Diabetes mellitus. 4. Peripheral neuropathy. RECOMMENDATIONS: 1. Change piperacillin to every 8 hours for his renal insufficiency. 2. No further vancomycin. 3. IV antibiotics 7 to 10 days, modified by his clinical course. 4. Source control at the left heel as per surgery service. 5. Thank you for asking me to see him. His antibiotic should be modified depending upon his susceptibilities, which are not available. Call if questions. JOY BECKHAM M.D. OPTICAL ENGINEER OPTICAL ENGINEER D I MT: [place]
[2020-10-30] MEDS: MELATONIN 5 MG TABLET PO (20:41)
[2020-10-30 23:00] LABS: Glucose Point of Care 104 mg/dl (65-105)
[2020-10-31] VITALS (18 sets, daily range): BP systolic 122–163; BP diastolic 64–81; PULSE 58–70; RESP 11–18; TEMP 36–36.9; O2SAT 93–100
[2020-10-31 05:50] LABS: Basophils Absolute Auto 0.1 K/mm3 (0.0-0.1); Basophils Percent Auto 0.7 % (0.2-1.2); Eosinophils Absolute Auto 0.7 K/mm3 (0-0.3); Eosinophils Percent Auto 7.2 % (0-4.4); Hematocrit 26.8 % (42.0-52.0); Hemoglobin 7.6 g/dL (14.0-18.0); Immature Granulocyte Absolute 0.09 K/mm3 (0.00-0.031); Immature Granulocyte Percent A 0.9 % (0-0.5); Lymphocytes Absolute Auto 2.18 K/mm3 (0.9-3.2); Lymphocytes Percent Auto 21.9 % (18.3-44.2); Mean Corpuscular HGB Conc 28.4 g/dl (32-36); Mean Corpuscular Hemoglobin 27.3 pg (26-34); Mean Corpuscular Volume 96.4 fl (80-100); Mean Platelet Volume 11.3 fl (7.4-10.4); Monocytes Absolute Auto 1.2 K/mm3 (0.1-0.6); Monocytes Percent Auto 11.5 % (2.6-8.5); Neutrophils Absolute Auto 5.8 K/mm3 (1.3-6.7); Neutrophils Percent Auto 57.8 % (45.5-73.1); Nucleated Red Blood Cells Perc 0.2 % (0.0-0.2); Platelet Count Result 211 k/mm3 (150-375); Red Blood Count 2.78 M/mm3 (4.6-6.20); Red Cell Distribution Width 16.4 % (11.5-14.5)
[2020-10-31 06:02] LABS: Alanine Aminotransferase 60 U/L (4-50); Albumin Level 2.9 g/dL (3.5-5.1); Alkaline Phosphatase 134 U/L (38-126); Anion Gap 6 mmol/L (8-16); Aspartate Amino Transferase 47 U/L (17-59); Bilirubin,Total 0.6 mg/dL (0.2-1.3); Blood Urea Nitrogen 66 mg/dL (9-20); CRP 5.4 mg/dL (<1.0); Calcium 8.1 mg/dL (8.4-10.2); Carbon Dioxide 26 mmol/L (22-30); Chloride 104 mmol/L (98-107); Estimated CRCL calculation 52 ml/min; Estimated Glomerular Filt Rate 25; Glucose 93 mg/dL (65-110); Sodium 136 mmol/L (137-145)
[2020-10-31 06:59] LABS: Hypochromasia 1+ (NORMAL); Platelet Estimate Adequate (Adequate)
[2020-10-31 08:22] LABS: Glucose Point of Care 93 mg/dl (65-105)
[2020-10-31] MEDS: carvediloL 3.125 MG TABLET PO ×2 (08:23→17:43)
[2020-10-31] MEDS: amLODIPine BESYLATE 5 MG TABLET 10 MG PO (08:23)
[2020-10-31] MEDS: INSULIN ASPART (*BKC) 100 UNITS/ML SUB-Q ×2 (08:26→18:50)
--- NOTE | 2020-10-31 08:39 | PM.IMPN ---
Progress Note: A&P Assessment and Plan (1) Diabetic foot infection: Code(s): E11.628 - Type 2 diabetes mellitus with other skin complications; L08.9 - Local infection of the skin and subcutaneous tissue, unspecified Status: Acute Assessment and Plan: x-ray of the foot showed no osteomyelitis ROSA showed no significant arterial occlusive disease vancomycin d/c'd per ID BC-->+Proteus Mirabilis and Morganella morganii ID following, recommendations appreciated GS following, recommendations appreciated Plan for debridement today Continue Zosyn (2) Acute hyperkalemia: Code(s): E87.5 - Hyperkalemia Status: Acute Assessment and Plan: Resolved 5.1-->5 today Continue po lasix monitor BMP (3) Diabetes mellitus with diabetic nephropathy, with long-term current use of insulin: Qualifiers: Diabetes mellitus type: type 2 Qualified Code(s): E11.21 - Type 2 diabetes mellitus with diabetic nephropathy; Z79.4 - termite control service representative (current) use of insulin Code(s): E11.21 - Type 2 diabetes mellitus with diabetic nephropathy; Z79.4 - termite control service representative (current) use of insulin Status: Acute Assessment and Plan: Continue Lantus and scheduled insulin (dose slight decreased due to dietary changes while hospitalized). If he runs high, this can be increased Last A1C 7.5 08/2020 SSI and ACHS accuchecks Monitor (4) Obesity hypoventilation syndrome: Code(s): E66.2 - Morbid (severe) obesity with alveolar hypoventilation Status: Acute Assessment and Plan: Improved With PFTs demonstrating severe restrictive ventilatory defect Chronic home O2 of 3 L, back to baseline (5) Diastolic HF (heart failure): Code(s): I50.30 - Unspecified diastolic (congestive) heart failure Status: Acute Assessment and Plan: No acute exacerbation Noted on echo in the past Continue BB, Lasix Monitor bmp (6) Transaminitis: Code(s): R74.01 - Elevation of levels of liver transaminase levels Status: Acute Assessment and Plan: Continues to improve hepatitis screen neg last CT showed a normal liver August 2020 (7) Morbid obesity: Code(s): E66.01 - Morbid (severe) obesity due to excess calories Status: Acute Assessment and Plan: Lifestyle modifications encouraged (8) Anticoagulant long-term use: Code(s): Z79.01 - USP (current) use of anticoagulants Status: Acute Assessment and Plan: the patient is on Xarelto 2.5 Q12 due to history of DVT from what it looks like in the EMR Pt reportedin the last 2 years he had a LE DVT but cannot remember details no hx of DVT or PE in our system back from 04/2019 The dose is not usual for prophylactic dosing or DVT treatment It is consistent with a coronary artery disease dosing but cardiology note from August 2020 states this was due to chronic lower extremity DVTs with no mention coronary disease past treatment pt on full dose Lovenox now due to possible sx (watch kidney function on this) LE dopplers neg for DVT adjust Xaralto dose t 10 daily for dvt ppx at d/c (9) Bacteremia: Code(s): R78.81 - Bacteremia Status: Acute Assessment and Plan: vancomycin d/c'd per ID BC-->+Proteus Mirabilis and Morganella morganii ID following, recommendations appreciated Continue Zosyn Additional Plan PT/OT evalu pending Subjective Date/time seen: 10/31/20 08:39 Interval history: pt seen and evaluated; no acute events overnight; labs and diagnostic reports reviewed; pain is controlled Review of Systems Review of Systems: All systems reviewed & are unremarkable except as noted in HPI and below Exam Const: General: no acute distress, alert and awake Orientation/consciousness: patient oriented x3 HENMT: Head: normocephalic and atraumatic Ears: hearing grossly normal bilaterally and external ears normal Face and sinus: face symmetric Mouth: Yes Aura
[2020-10-31 12:02] LABS: Glucose Point of Care 84 mg/dl (65-105)
[2020-10-31 12:34] LABS: Glucose Point of Care 87 mg/dl (65-105)
[2020-10-31] MEDS: LACTATED RINGERS 1,000 ML 30 ML IV CONT (12:40)
--- NOTE | 2020-10-31 14:17 | WPDANESEPPF ---
Anes - Initial Pre Proc Eval Procedure: Operation Date: 10/31/20 13:30 Proposed Procedures p Incision and Drainage of Left Heel Ulcer - Brennan Scott MD Date/Time: 10/31/20 14:17 Surgeon: Jessenia Camejo PA-C Pre Op Diagnosis: Diabetic foot infection, SHAKIRA Patient Data Age: 50 Gender: M Height: 1.85 m Weight: 186.9 kg Last Vital Signs Temp 36.1 C L 10/31/20 12:35 Pulse 66 10/31/20 12:35 Resp 16 10/31/20 12:35 BP 148/67 H 10/31/20 12:35 Pulse Ox 93 10/31/20 12:35 Allergies Allergy/AdvReac Type Severity Reaction Status Date / Time No Known Allergies Allergy Verified 10/28/20 13:31 Home Medications Medication Instructions Recorded Confirmed Type amlodipine 10 mg PO DAILY 05/15/19 10/28/20 History carvedilol 3.125 mg PO BID 05/15/19 10/28/20 History gabapentin 300 mg PO TID 05/15/19 10/28/20 History Xarelto 2.5 mg PO BID 03/02/20 10/28/20 History acetaminophen 650 mg PO Q4H PRN 03/02/20 10/28/20 History albuterol sulfate 2 puff INHALATION TID PRN 03/02/20 10/28/20 History cetirizine 10 mg PO DAILY 03/02/20 10/28/20 History melatonin 5 mg PO HS 03/02/20 10/28/20 History polysaccharide iron complex 150 mg PO DAILY 03/02/20 10/28/20 History [Poly-Iron] Lantus U-100 Insulin 20 unit SUBCUT BID #0 ml 03/06/20 10/28/20 Rx furosemide 40 mg tablet 60 mg PO DAILY tablet 09/08/20 10/28/20 History clotrimazole 1 applic TOPICAL BID 30 Days #15 g 09/25/20 10/28/20 Rx diltiazem HCl 120 mg PO QAM 30 Days #30 cap 09/25/20 10/28/20 Rx budesonide-formoterol 2 puff INHALATION Q12H 10/28/20 10/28/20 History collagenase clostridium histo. 1 applic TOPICAL DAILY 10/28/20 10/28/20 History [Santyl] hydrocodone-acetaminophen 1 tablet PO BID PRN 10/28/20 10/28/20 History insulin lispro [Humalog KwikPen 6 unit SUBCUT TID 10/28/20 10/28/20 History Insulin] Laboratory Tests 10/30/20 10/30/20 10/31/20 18:03 22:57 05:03 WBC 10.0 K/mm3 K/mm3 (4.5-10.0) RBC 2.78 M/mm3 L M/mm3 (4.6-6.20) Hgb 7.6 g/dL L g/dL (14.0-18.0) Hct 26.8 % L % (42.0-52.0) MCV 96.4 fl fl (80-100) MCH 27.3 pg pg (26-34) MCHC 28.4 g/dl L g/dl (32-36) RDW 16.4 % H % (11.5-14.5) Plt Count 211 k/mm3 k/mm3 (150-375) MPV 11.3 fl H fl (7.4-10.4) Immature Gran % (Auto) 0.9 % H % (0-0.5) Neut % (Auto) 57.8 % % (45.5-73.1) Lymph % (Auto) 21.9 % % (18.3-44.2) [place] % (Auto) 11.5 % H % (2.6-8.5) Eos % (Auto) 7.2 % H % (0-4.4) Baso % (Auto) 0.7 % % (0.2-1.2) Lymph # (Auto) 2.18 K/mm3 K/mm3 (0.9-3.2) [place] # (Auto) 1.2 K/mm3 H K/mm3 (0.1-0.6) Eos # (Auto) 0.7 K/mm3 H K/mm3 (0-0.3) Baso # (Auto) 0.1 K/mm3 K/mm3 (0.0-0.1) Abs Immat Gran (auto) 0.09 K/mm3 H K/mm3 (0.00-0.031) Absolute Neuts (auto) 5.8 K/mm3 K/mm3 (1.3-6.7) Absolute Nucleated RBC 0.0 K/mm3 K/mm3 (0.0-0.012) Nucleated RBC % 0.2 % % (0.0-0.2) Platelet Estimate Adequate (Adequate) Hypochromasia 1+ (NORMAL) Sodium Potassium Chloride Carbon Dioxide Anion Gap BUN Creatinine Estim Creat Clear Calc Estimated GFR Glucose POC Capillary Glucose 93 mg/dl mg/dl 104 mg/dl mg/dl (65-105) (65-105) Calcium Total Bilirubin Direct Bilirubin AST ALT Alkaline Phosphatase C-Reactive Protein Total Protein Albumin 10/31/20 10/31/20 10/31/20 05:03 07:49 11:55 WBC RBC Hgb Hct MCV MCH MCHC RDW Plt Count MPV Immature Gran % (Auto
--- NOTE | 2020-10-31 15:03 | WPDHPUPDATE1 ---
History and Physical Update Update Date/Time: 10/31/20 15:03 History and Physical has been reviewed, including an updated exam of the patient. There are NO changes in the patient's condition. Risks, benefits, and alternatives have been discussed and questions answered. Patient agrees to proceed with procedure.
[2020-10-31 16:06] LABS: Glucose Point of Care 84 mg/dl (65-105)
--- NOTE | 2020-10-31 16:15 | W.PM.PROC2 ---
Procedure Note - Detailed Date of Procedure 10/31/20 Pre-op Diagnosis Necrotic left heel ulcer Post-op Diagnosis same Procedure Performed Excisional debridement gangrenous left heel ulcer 7.5 x 6.8 cm Surgeon Brennan Scott MD Oncology Coordinator Patricio MAYEN Anesthesia general Indications The patient is a 50-year-old diabetic man who came into the hospital with evidence of infection and a black and foul smelling left heel ulcer. He subsequently developed bacteremia growing both Morganella and Proteus in his blood. The sources felt to be the necrotic ulcer on his left heel. He is taken to surgery now for excisional debridement Findings tissue with a blackened eschar was noted. The area of the debridement was 7.5 x 6.8 cm or 51 centimeter squared. The infection included skin subcutaneous and muscle but did not go down to the calcaneus. Blood supply appeared to be good. Description of Procedure Patient was checked in the preoperative holding area. He was then taken to the operating room and induced into general anesthesia. He was turned onto his right side so that the left heel was fairly well exposed. Prep and drape of the foot and heel was then carried out. The heel ulcer was again foul-smelling with soft tissue around the edges. Excision was started at the edge of the blackened eschar and the healthy skin. This was excised sharply and included skin subcutaneous and some muscle. We dissected around all the edges as well as dissected deeply to excise the necrotic area with the necrotic underlying tissue as well. Once it was removed, we measured the wound with dimensions as noted above. Bleeding areas were cauterized to achieve hemostasis. Bone on the heel was not exposed. Wound was dressed with Xeroform gauze, bulky fluffs, ABDs, Kerlix roll. Patient was returned to a supine position, awakened and taken to recovery in good condition with the left heel elevated. Estimated Blood Loss 20 Urine Output 400 Drains No Packing No Pathology none sent Complications None Condition stable Disposition PACU
[2020-10-31 17:38] LABS: Glucose Point of Care 79 mg/dl (65-105)
[2020-10-31] MEDS: POLYSACCHARIDE IRON COMPLEX 150 MG CAPSULE PO (17:43)
[2020-10-31] MEDS: LORATADINE 10 MG TABLET PO (17:43)
[2020-10-31] MEDS: GABAPENTIN 300 MG CAPSULE PO (17:43)
[2020-10-31] MEDS: MICONAZOLE NITRATE 2% CREAM 30 GM TUBE 1 APPLIC TOPICAL ×2 (17:44→17:59)
[2020-10-31] MEDS: HYDROcodone/acetaminophen (*CRX) 5-325 MG TABLET 1 TAB PO (17:56)
[2020-10-31] MEDS: LACTATED RINGERS 1,000 ML 100 ML IV CONT (18:03)
[2020-10-31 18:25] LABS: Glucose Point of Care 76 mg/dl (65-105)
[2020-10-31] MEDS: INSULIN GLARGINE (*BKC) 100 UNITS/ML 7 UNITS SUB-Q (18:51)
[2020-10-31] MEDS: MELATONIN 5 MG TABLET PO (20:14)
[2020-10-31 20:57] LABS: Glucose Point of Care 92 mg/dl (65-105)
[2020-11-01] VITALS (39 sets, daily range): BP systolic 83–179; BP diastolic 45–106; PULSE 45–70; RESP 16–32; TEMP 34.9–36.3; O2SAT 88–98
--- NOTE | 2020-11-01 | ECHO_ITS ---
Patient Info Name: Ulices Canas Age: 50 years : 1970 Gender: Male Ht: 73 in Wt: 412 lbs BSA: 3.20 m2 HR: 65 bpm BP: 104 / 57 mmHg Heart Rhythm: Sinus Rhythm Technical Quality: Poor Exam Date: 11/01/2020 8:53 AM Exam Location: [facility] Pulmonary Exam Room: ICU9 Patient Status: Inpatient Admit Date: 10/30/2020 Staff Ordering Physician: Manav Allison MD Whipped Topping Mixer: Mago Marroquin RDCS Attending Provider: Jessenia Camejo PA-C Exam Type: CA echo dop color flow w con Study Info Indications - chf Complete two-dimensional, color flow and Doppler transthoracic echocardiogram is performed with contrast to opacify the left ventricle and to improve the deliniation of the left ventricle endocardial borders. Contrast/Agitated Saline Contrast/Ag. Saline: Definity Amount: 2.00 ml Administered By: Camilo Bates RN Existing IV Access: Yes Reason for Poor Study: patient body habitus Summary 1. Mild left ventricular enlargement with mild concentric hypertrophy and good contractility of all segments. Measured ejection fraction 68%. No wall motion abnormalities. Grade 2 diastolic dysfunction is present. 2. Left atrial chamber dimension is moderately enlarged. 3. Mild pulmonary hypertension, estimated pulmonary arterial systolic pressure is 42 mmHg. 4. No significant valve disease. 5. Dilated IVC consistent with elevated right-sided pressure. 6. Normal sinus rhythm. 7. Technically difficult study, definity echo contrast used. Left Ventricle Left ventricular chamber dimension is mildly enlarged. Left ventricular systolic function is normal, estimated at Empty. There is mildly increased left ventricular wall thickness. Left ventricular septal wall motion is normal. The left ventricular diastolic function is grade II diastolic dysfunction. Right Ventricle Right ventricular chamber dimension is normal. Right ventricular systolic function is normal. Left Atria Left atrial chamber dimension is moderately enlarged. Right Atria Right atrial chamber dimension is normal. Aortic Valve The aortic valve is trileaflet. There is no aortic valve sclerosis. There is no aortic valve stenosis. There is no aortic valve regurgitation. Pulmonic Valve The pulmonic valve is normal. There is no pulmonic valve stenosis. There is no pulmonic regurgitation. Mitral Valve The mitral valve has normal leaflets. There is no mitral valve stenosis. There is trace mitral valve regurgitation. Tricuspid Valve The tricuspid valve leaflets are normal. There is no significant tricuspid valve stenosis. There is trace tricuspid valve regurgitation. Mild pulmonary hypertension, estimated pulmonary arterial systolic pressure is 42 mmHg. Pericardium/Pleural The pericardium appears normal. There is no pericardial effusion. Inferior Vena Cava Dilated inferior vena cava with >50% collapse upon inspiration consistent with Empty right atrial pressure, 10 mmHg. Aorta The aortic root size at the sinus of Valsalva is normal. The prox ascending aorta size is normal. Left Ventricular Outflow Tract Name Value Normal LVOT 2D LVOT Diameter
[2020-11-01 01:28] LABS: Glucose Point of Care 95 mg/dl (65-105)
--- NOTE | 2020-11-01 03:31 | ED.PROCEDURE ---
Procedures Intubation Intubation Date: 11/01/20 Intubation Time: 03:31 Consent: Emergent Sedative: none Laryngoscope: fiber optic video scope ET tube size: cuffed Tube secured depth (cm): 23 Tube secured location: teeth Tube placement confirmation: visualized tube passing through cords, equal breath sounds bilaterally, no breath sounds over epigastrium and confirmation by capnometry Patient tolerated procedure: well Intubation complications: none
--- NOTE | 2020-11-01 03:34 | ED.PROCEDURE ---
Procedures Other Procedures Procedure 1: Other Procedure: ACLS note Called to bedside for cardiac arrest. Patient was found unresponsive and without a pulse. Patient was initial presenting rhythm was PEA patient received doses of epinephrine and sodium bicarbonate as well as calcium chloride due to his prior history of renal insufficiency. Please see the intubation note for airway protection. Patient had return of spontaneous circulation and the patient was transferred to the intensive care unit.
--- NOTE | 2020-11-01 04:01 | PC.NURSE ---
Found patient with no pulse or respirations. He had his c-pap pulled off. Started chest compressions and called code at 303. Last time I checked on him was 234 with c-pap on and he was resting with eyes closed. At 309 attempting to notify a family member or friend but he has no contact in his records. Called the retirement he resides in and they had an uncle down for his contact. Tez Canas [phone]. Called and left a message. At 399 I called again with no answer. At 334 he was transferred to ICU.
[2020-11-01] MEDS: SODIUM CHLORIDE 0.9% IV 2,000 ML 999 ML IV CONT (04:30)
[2020-11-01 04:38] LABS: Alveolar/Arterial O2 Gradient 484.7 mmHg; Base Excess ABG -4.1 mEq/l (+/-2.0); Fractional Inspired Oxygen 100 %; HCO3 ABG 22.3 mEq/l (22.0-26.0); Methemoglobin ABG 0.5 %THb (0-1.5); Oxygen Content ABG 12.8 %vol (16.0-22.0); Oxygen Saturation ABG 99.1 % (95.0-100.0); PCO2 ABG 47.1 mmHg (35.0-45.0); PO2 ABG 181.2 mmHg (80.0-100.0); PO2 FiO2 Ratio Arterial Blood 1.81 %; Reduced Hemoglobin 1.5 %THb (0-5.0)
[2020-11-01 04:43] LABS: pH ABG 7.294 (7.350-7.450)
[2020-11-01 04:44] LABS: Arterial Blood Gas Ventilator rate 22 /MIN; Device VENTILATOR; Modified Allen's Test Pass; Site Drawn RIGHT BRACHIAL
[2020-11-01 04:45] LABS: Arterial Blood Gas PEEP 8 cmH2O; Arterial Blood Gas Tidal Volume 645 ml; Arterial Blood Gas Vent Mode CMV
[2020-11-01] MEDS: SODIUM CHLORIDE 0.9% IV 1,000 ML 999 ML (04:45)
[2020-11-01] MEDS: DOPamine 400 MG/D5W 250 ML 400 MG/250 ML BAG 17.52 MG IV CONT (04:50)
[2020-11-01 05:40] LABS: Glucose Point of Care 111 mg/dl (65-105)
[2020-11-01] MEDS: PROPOFOL IV EMULSION 100 ML 33.64 MG IV CONT (08:00)
[2020-11-01 08:28] LABS: Basophils Absolute Auto 0.1 K/mm3 (0.0-0.1); Basophils Percent Auto 0.4 % (0.2-1.2); Eosinophils Absolute Auto 0.1 K/mm3 (0-0.3); Eosinophils Percent Auto 0.7 % (0-4.4); Hematocrit 26.5 % (42.0-52.0); Hemoglobin 7.9 g/dL (14.0-18.0); Immature Granulocyte Absolute 0.43 K/mm3 (0.00-0.031); Immature Granulocyte Percent A 2.8 % (0-0.5); Lymphocytes Percent Auto 5.2 % (18.3-44.2); Mean Corpuscular HGB Conc 29.8 g/dl (32-36); Mean Corpuscular Hemoglobin 27.4 pg (26-34); Mean Platelet Volume 11.3 fl (7.4-10.4); Monocytes Absolute Auto 1.1 K/mm3 (0.1-0.6); Monocytes Percent Auto 7.3 % (2.6-8.5); Neutrophils Absolute Auto 12.9 K/mm3 (1.3-6.7); Neutrophils Percent Auto 83.6 % (45.5-73.1); Nucleated Red Blood Cells Perc 0.2 % (0.0-0.2); Platelet Count Result 235 k/mm3 (150-375); Red Blood Count 2.88 M/mm3 (4.6-6.20); Red Cell Distribution Width 16.2 % (11.5-14.5); White Blood Count 15.4 K/mm3 (4.5-10.0)
[2020-11-01 08:41] LABS: Lactic Acid Reflex 1.5 mmol/L (0.7-2.1)
[2020-11-01 08:50] LABS: Albumin Level 2.9 g/dL (3.5-5.1); Alkaline Phosphatase 143 U/L (38-126); Anion Gap 11 mmol/L (8-16); Bilirubin,Total 1.1 mg/dL (0.2-1.3); Blood Urea Nitrogen 72 mg/dL (9-20); Calcium 7.9 mg/dL (8.4-10.2); Carbon Dioxide 24 mmol/L (22-30); Chloride 100 mmol/L (98-107); Estimated CRCL calculation 49 ml/min; Estimated Glomerular Filt Rate 23; Glucose 129 mg/dL (65-110); Magnesium 2.1 mg/dL (1.6-2.3); Potassium 5.4 mmol/L (3.4-5.0); Sodium 135 mmol/L (137-145)
[2020-11-01 08:53] LABS: Hypochromasia 2+ (NORMAL); Platelet Estimate Adequate (Adequate); Stomatocytes 1+ (NORMAL)
[2020-11-01 08:54] LABS: NT Pro B Type Natriuretic Pept 2670 pg/mL (5-100); Troponin I < 0.012 ng/mL (0.000-0.034)
[2020-11-01 09:43] LABS: Glucose Point of Care 121 mg/dl (65-105)
--- NOTE | 2020-11-01 09:44 | PCOTNOTE ---
OT evaluation received on 10/30/2020 which as not been completed, patient coded on 11/01/2020 and is now on mechanical ventilation in ICU, canceled OT orders at this time.
[2020-11-01 09:45] LABS: Alanine Aminotransferase 1661 U/L (4-50); Aspartate Amino Transferase 3034 U/L (17-59)
--- NOTE | 2020-11-01 09:47 | WPDCNINT ---
Assessment and Plan Assessment and plan (1) Cardiac arrest: Code(s): I46.9 - Cardiac arrest, cause unspecified Status: Acute Assessment and Plan: Although etiology is not fully clear it is likely secondary to aspiration pneumonia. Patient was found unresponsive on CPAP in his room Hypercarbia could also be a possibility as patient is morbidly obese. No ABG was done until patient was intubated which showed only mild hypercarbia Patient had Dopplers done 2 days ago which were negative for DVT and also was on anticoagulation until day before yesterday making PE unlikely etiology. Patient also was anemic and anticoagulation had to be stopped because of the surgery. Patient also is in acute kidney injury precluding CTA. Patient also morbidly obese and does not fit in our CT scanner Echocardiogram has been ordered and is pending EKG shows sinus rhythm Head CT was negative for acute change hence I will go ahead and restart his heparin infusion Serial troponin although this does not appear to be a primary cardiac event outcomes manager (2) Acute respiratory failure: Code(s): J96.00 - Acute respiratory failure, unspecified whether with hypoxia or hypercapnia Status: Acute Assessment and Plan: Secondary to cardiac arrest and aspiration pneumonia Ventilator settings reviewed Chest x-ray reviewed Repeat ABG now Peep was increased to 10 I wanted to get a chest CT to further evaluate his lungs but patient did not fit in our CT scanner Patient has chronic respiratory failure with severe lungs sick to disease with total lung capacity only 66% (3) Aspiration pneumonia: Code(s): J69.0 - Pneumonitis due to inhalation of food and vomit Status: Acute Assessment and Plan: Sputum and blood cultures Patient is on Zosyn (4) Anoxic brain injury: Code(s): G93.1 - Anoxic brain damage, not elsewhere classified Status: Acute Assessment and Plan: Patient appears to be encephalopathic post code Although there is no evidence supporting behind benefit of TTM protocol for unwitnessed inhospital PEA cardiac arrest, patient was started on TTM protocol with goal to keep temperature below 36C for next 24 hours (5) Diabetic foot infection: Code(s): E11.628 - Type 2 diabetes mellitus with other skin complications; L08.9 - Local infection of the skin and subcutaneous tissue, unspecified Status: Acute Assessment and Plan: x-ray of the foot showed no osteomyelitis ROSA showed no significant arterial occlusive disease vancomycin d/c'd per ID BC-->+Proteus Mirabilis and Morganella morganii ID following, recommendations appreciated GS following, recommendations appreciated Plan for debridement today Continue Zosyn (6) Acute hyperkalemia: Code(s): E87.5 - Hyperkalemia Status: Acute Assessment and Plan: Will give Kayexalate Will consider giving Lasix (7) Diabetes mellitus with diabetic nephropathy, with long-term current use of insulin: Qualifiers: Diabetes mellitus type: type 2 Qualified Code(s): E11.21 - Type 2 diabetes mellitus with diabetic nephropathy; Z79.4 - middle or intermediate school principal (current) use of insulin Code(s): E11.21 - Type 2 diabetes mellitus with diabetic nephropathy; Z79.4 - correction (current) use of insulin Status: Acute Assessment and Plan: Currently on sliding scale insulin. Lantus will be decreased as blood sugars are low Last A1C 7.5 08/2020 Monitor (8) Obesity hypoventilation syndrome: Code(s): E66.2 - Morbid (severe) obesity with alveolar hypoventilation Status: Acute Assessment and Plan: With PFTs demonstrating severe restrictive ventilatory defect (9) Diastolic HF (heart failure): Code(s): I50.30 - Unspecified diastolic (congestive) heart failure Status: Acute Assessment and Plan: Patient has diastolic dysfunction and right heart failure ECHO 03/09 Summary 1.
--- NOTE | 2020-11-01 10:00 | PCPTNOTE ---
PT evaluation received on 10/30/2020 which as not been completed, patient coded on 11/01/2020 and is now on mechanical ventilation in ICU, canceled PT orders at this time.
--- NOTE | 2020-11-01 10:16 | WPDPROCEDUR ---
Procedures Central Line Placement Left IJ: Central Line Date: 11/01/20 Central Line Time: 08:00 Performed Emergently - Given emergent patient condition, temporal constraints may have precluded informed consent.: Yes Consent: Patient intubated and unresponsive. Family unreachable. Morbidly obese and poor IV access. On IV vasopressors Procedure done as medical necessity Time Out Performed: Yes Patient Position: supine Patient placed on monitor/pulse ox: Yes Provider Prep: mask, sterile gown, sterile gloves, Max. sterile barrier precautions, cap and hand hygiene with conventional soap/water or alcohol based hand rub Central line prep: 2% Chlorhexidine scrub Sterile US Technique with sterile gel/sterile probe covers: Yes Central line lumen inserted: triple Length (cm): 16 Depth of Insertion (cm): 16 Post Procedure: sutured in place, good blood return, all ports aspirated, flushed, capped, transparent dressing, hemostatic product and antimicrobial product Post procedure x-ray: tip of catheter in good position and no pneumothorax seen Patient tolerated procedure: well Complications: none
[2020-11-01] MEDS: PANTOPRAZOLE SODIUM IV 40 MG VIAL IV PUSH (11:24)
[2020-11-01] MEDS: SODIUM POLYSTYRENE SULFONONATE 15 GM/60 ML BTL 30 GM PO (11:25)
[2020-11-01] MEDS: MICONAZOLE NITRATE 2% CREAM 30 GM TUBE 1 APPLIC TOPICAL ×2 (11:25→20:38)
[2020-11-01 11:35] LABS: Troponin I < 0.012 ng/mL (0.000-0.034)
[2020-11-01 11:40] LABS: Glucose Point of Care 122 mg/dl (65-105)
[2020-11-01 11:49] LABS: Base Excess ABG -0.7 mEq/l (+/-2.0); Fractional Inspired Oxygen 100 %; Oxygen Content ABG 12.7 %vol (16.0-22.0); Oxygen Saturation ABG 97.6 % (95.0-100.0); Oxyhemoglobin 96.4 % THb (90.0-100.0); PCO2 ABG 46.2 mmHg (35.0-45.0); PO2 ABG 106.8 mmHg (80.0-100.0); PO2 FiO2 Ratio Arterial Blood 1.07 %; Total Hemoglobin 9.2 g/dL (12.0-18.0); pH ABG 7.351 (7.350-7.450)
[2020-11-01 11:51] LABS: Device VENTILATOR; Modified Allen's Test Pass; Site Drawn LEFT RADIAL
[2020-11-01 11:52] LABS: Arterial Blood Gas Ventilator rate 24 /MIN
[2020-11-01 11:53] LABS: Arterial Blood Gas PEEP 10 cmH2O; Arterial Blood Gas Tidal Volume 500 ml; Arterial Blood Gas Vent Mode ASSIST CONTROL
--- NOTE | 2020-11-01 12:16 | PM.PNGS ---
Progress Note: A&P Assessment and Plan (1) Diabetic foot infection: Code(s): E11.628 - Type 2 diabetes mellitus with other skin complications; L08.9 - Local infection of the skin and subcutaneous tissue, unspecified Status: Acute Assessment and Plan: postop day # 1 status post left heel debridement for necrotic ulceration and diabetic wound infection. No significant bleeding today so dressing not changed leg slightly elevated. (2) Anticoagulant long-term use: Code(s): Z79.01 - halfway (current) use of anticoagulants Status: Acute Assessment and Plan: Discussed anticoagulation with Dr. Acevedo and expressed concern about use of anticoagulant prior to a.m. tomorrow, the morning of . Therefore, unless it is felt that this would contribute to life-saving measures that will be held 24 more hours. Will plan to change the dressing on the patient's left foot tomorrow morning. (3) Aspiration pneumonia: Code(s): J69.0 - Pneumonitis due to inhalation of food and vomit Status: Acute (4) Acute respiratory failure: Code(s): J96.00 - Acute respiratory failure, unspecified whether with hypoxia or hypercapnia Status: Acute (5) Cardiac arrest: Code(s): I46.9 - Cardiac arrest, cause unspecified Status: Acute (6) Morbid obesity: Code(s): E66.01 - Morbid (severe) obesity due to excess calories Status: Acute Additional Plan Will continue to follow with you and check left heel wound as needed. Time Spent With Patient Time with patient: less than 15 minutes Subjective Subjective Date/Time Seen: 11/01/20 10:16 Patient has moved ICU overnight. Nurses report that the patient was found unresponsive in his hospital room sometime during the night with his CPAP mask on. They suspect aspiration since apparently they found vomitus around his face. (Please see code notes and Dr. Acevedo's is note from today). nurses report no significant bloody drainage on left foot dressing from heel debridement. Review of Systems Review of Systems: ROS unobtainable: Yes unobtainable due to endotracheal tube Exam Const: General: cooperative and patient obtunded Other: Sedated and on a ventilator. Neck: Neck: normal visual inspection and trachea midline Chest: Chest palpation & inspection: normal inspection of the chest Resp: Other: not examined GI: Inspection: Pannus present and obesity (Morbid) Rectal Exam: deferred Skin: Other: Left heel wound addressed with only a slight shadow of serosanguineous drainage seen externally. ( informed nurses not to change today and will re-evaluate in a.m. tomorrow). Neuro: General: patient oriented x3 and moves all extremities Speech: normal speech Extrem: General: normal exam except as noted Left lower extremity: edema and foot ( already missing several toes.) Details: other ( Gauze wrap dressing clean and dry with a small area of through drainage (serosanguineous)) Psych: Mental Status: mental status grossly normal Speech and movement: Normal speech and movement present Affect: normal affect Thought content: Yes Normal thought content present Objective Data Vital Signs Vital Signs: Vital Signs - 24 hr 10/31/20 12:35 10/31/20 15:54 10/31/20 16:09 Temperature 36.1 C L 36.9 C Pulse Rate 66 64 63 Respiratory Rate 16 12 13 Blood Pressure 148/67 H 149/74 H 143/74 H Pulse Oximetry 93 94 96 10/31/20 16:24 10/31/20 16:39 10/31/20 16:54 Temperature Pulse Rate 62 60 63 Respiratory Rate 13 11 L 12 Blood Pressure 140/72 141/70 H 138/70 Pulse Oximetry 100 94 94 10/31/20 17:09 10/31/20 17:43 10/31/20 17:45 Temperature 36.4 C Pulse Rate 62 62 63 Respiratory Rate 12 12 Blood Pressure 131/68 141/69 H Pulse Oximetry 94 93 10/31/20 18:00 10/31/20 18:40 10/31/20 20:00 Temperature 36.3 C L 36.3 C L 36.2 C L Pulse Rate 63 63 60 Respiratory Rate 14 14 14 Blood Pressure 141/68 H 125/64 122/65 Pulse Oxi
[2020-11-01] MEDS: MINERAL OIL/WHITE PETROLATUM OINTMENT 1 APPLIC EACH EYE ×2 (13:56→20:38)
[2020-11-01] MEDS: CENTRAL LINE FLUSH 10 ML IV PUSH ×3 (13:57→21:10)
[2020-11-01 16:14] LABS: Glucose Point of Care 106 mg/dl (65-105)
[2020-11-01] MEDS: POLYSACCHARIDE IRON COMPLEX 150 MG CAPSULE FEED TUBE (16:29)
[2020-11-01] MEDS: PROPOFOL IV EMULSION 100 ML 22.43 MG IV CONT (16:47)
[2020-11-01 17:05] LABS: Troponin I < 0.012 ng/mL (0.000-0.034)
[2020-11-01] MEDS: PROPOFOL IV EMULSION 100 ML 56.07 MG IV CONT ×3 (19:22→23:16)
[2020-11-01] MEDS: MORPHINE SULFATE (*CRX) 2 MG/ML INJ IV PUSH (19:25)
[2020-11-01 19:43] LABS: Glucose Point of Care 95 mg/dl (65-105)
[2020-11-01] MEDS: FENTANYL 2,500MCG/NS250ML(*CRX 2,500 MCG/250 ML BAG IV CONT (20:31)
[2020-11-01] MEDS: FUROSEMIDE INJ 100 MG/10 ML VIAL 80 MG IV PUSH (20:37)
[2020-11-01] MEDS: HEPARIN SODIUM 5,000 UNITS/ML VIAL 5000 UNITS SUB-Q (20:38)
[2020-11-01 23:12] LABS: Troponin I < 0.012 ng/mL (0.000-0.034)
[2020-11-01 23:30] LABS: Glucose Point of Care 100 mg/dl (65-105)
[2020-11-02] VITALS (43 sets, daily range): BP systolic 126–162; BP diastolic 70–87; PULSE 46–74; RESP 18–29; TEMP 34.1–36.4; O2SAT 90–98
[2020-11-02] MEDS: PROPOFOL IV EMULSION 100 ML 50.46 MG IV CONT ×3 (00:57→20:56)
[2020-11-02 03:23] LABS: Glucose Point of Care 103 mg/dl (65-105)
[2020-11-02] MEDS: ALBUTEROL SULFATE NEB 2.5 MG/0.5 ML INH INHALATION ×4 (04:04→20:24)
[2020-11-02] MEDS: IPRATROPIUM BR 0.02% INH SOLN 0.5 MG/2.5 ML VIAL INHALATION ×4 (04:04→20:24)
[2020-11-02 04:25] LABS: Alveolar/Arterial O2 Gradient 279.5 mmHg; Carboxyhemoglobin 0.3 % THb (0-2.0); Fractional Inspired Oxygen 60 %; HCO3 ABG 26.2 mEq/l (22.0-26.0); Methemoglobin ABG 0.3 %THb (0-1.5); Oxygen Content ABG 16.8 %vol (16.0-22.0); Oxygen Saturation ABG 98.4 % (95.0-100.0); Oxyhemoglobin 96.9 % THb (90.0-100.0); PCO2 ABG 39.6 mmHg (35.0-45.0); PO2 ABG 118.8 mmHg (80.0-100.0); PO2 FiO2 Ratio Arterial Blood 1.98 %; Reduced Hemoglobin 2.5 %THb (0-5.0); Total Hemoglobin 12.2 g/dL (12.0-18.0); pH ABG 7.439 (7.350-7.450)
[2020-11-02 04:26] LABS: Device VENTILATOR; Modified Allen's Test Pass; Site Drawn RIGHT RADIAL
[2020-11-02 04:27] LABS: Arterial Blood Gas PEEP 10 cmH2O; Arterial Blood Gas Tidal Volume 450 ml; Arterial Blood Gas Vent Mode CMV; Arterial Blood Gas Ventilator rate 24 /MIN
[2020-11-02 04:57] LABS: Hematocrit 27.7 % (42.0-52.0); Hemoglobin 8.3 g/dL (14.0-18.0); Mean Corpuscular Hemoglobin 27.4 pg (26-34); Mean Corpuscular Volume 91.4 fl (80-100); Mean Platelet Volume 10.9 fl (7.4-10.4); Platelet Count Result 231 k/mm3 (150-375); Red Blood Count 3.03 M/mm3 (4.6-6.20); Red Cell Distribution Width 15.9 % (11.5-14.5)
[2020-11-02] MEDS: PROPOFOL IV EMULSION 100 ML 44.86 MG IV CONT ×2 (05:03→23:11)
[2020-11-02] MEDS: CENTRAL LINE FLUSH 10 ML IV PUSH ×4 (06:56→21:01)
[2020-11-02] MEDS: PROPOFOL IV EMULSION 100 ML 39.25 MG IV CONT ×2 (06:58→09:45)
[2020-11-02 07:30] LABS: Alanine Aminotransferase 1481 U/L (4-50)
[2020-11-02 07:36] LABS: Anion Gap 5 mmol/L (8-16); Blood Urea Nitrogen 74 mg/dL (9-20); Carbon Dioxide 26 mmol/L (22-30); Chloride 106 mmol/L (98-107); Estimated CRCL calculation 49 ml/min; Estimated Glomerular Filt Rate 24; Glucose 103 mg/dL (65-110); Sodium 137 mmol/L (137-145)
[2020-11-02 07:37] LABS: Albumin Level 2.8 g/dL (3.5-5.1); Alkaline Phosphatase 156 U/L (38-126); Bilirubin,Total 0.9 mg/dL (0.2-1.3); Calcium 8.3 mg/dL (8.4-10.2); Magnesium 2.1 mg/dL (1.6-2.3); Total Protein 7.5 g/dL (6.3-8.2)
[2020-11-02 08:00] LABS: Aspartate Amino Transferase 1910 U/L (17-59)
[2020-11-02 08:36] LABS: Glucose Point of Care 101 mg/dl (65-105)
[2020-11-02] MEDS: MINERAL OIL/WHITE PETROLATUM OINTMENT 1 APPLIC EACH EYE ×2 (09:01→20:11)
[2020-11-02] MEDS: MICONAZOLE NITRATE 2% CREAM 30 GM TUBE 1 APPLIC TOPICAL ×2 (09:01→20:11)
[2020-11-02] MEDS: HEPARIN SODIUM 5,000 UNITS/ML VIAL 5000 UNITS SUB-Q (09:01)
[2020-11-02] MEDS: POLYSACCHARIDE IRON COMPLEX 150 MG CAPSULE FEED TUBE (09:02)
[2020-11-02] MEDS: FUROSEMIDE INJ 40 MG/4 ML VIAL IV PUSH (09:02)
--- NOTE | 2020-11-02 10:29 | WPDINTPN ---
Progress Note: A&P Assessment and Plan (1) Cardiac arrest: Code(s): I46.9 - Cardiac arrest, cause unspecified Status: Acute Assessment and Plan: Although etiology is not fully clear it is likely secondary to aspiration pneumonia. Patient was found unresponsive on CPAP in his room Hypercarbia could also be a possibility as patient is morbidly obese. No ABG was done until patient was intubated which showed only mild hypercarbia Patient had Dopplers done 2 days ago which were negative for DVT and also was on anticoagulation until day before yesterday making PE unlikely etiology. Patient also was anemic and anticoagulation had to be stopped because of the surgery. Patient also is in acute kidney injury precluding CTA. Patient also morbidly obese and does not fit in our CT scanner Echocardiogram reviewed EKG shows sinus rhythm Head CT was negative for acute change hence I will go ahead and restart his heparin infusion Serial troponin were negative residential monitor (2) Acute respiratory failure: Code(s): J96.00 - Acute respiratory failure, unspecified whether with hypoxia or hypercapnia Status: Acute Assessment and Plan: Secondary to cardiac arrest and aspiration pneumonia. also has pulmonary edema Ventilator settings reviewed. Decrease rate to 20 FiO2 is down to 60% and peep is at 10 Chest x-ray reviewed. will give additional dose of Lasix today on presentation, I wanted to get a chest CT to further evaluate his lungs but patient did not fit in our CT scanner Patient has chronic respiratory failure with severe lungs sick to disease with total lung capacity only 66% (3) Aspiration pneumonia: Code(s): J69.0 - Pneumonitis due to inhalation of food and vomit Status: Acute Assessment and Plan: Sputum and blood cultures Patient is on Zosyn (4) Anoxic brain injury: Code(s): G93.1 - Anoxic brain damage, not elsewhere classified Status: Acute Assessment and Plan: Patient appears to be encephalopathic post code patient will complete his TTM protocol for 24 years this morning. will start rewarming (5) Diabetic foot infection: Code(s): E11.628 - Type 2 diabetes mellitus with other skin complications; L08.9 - Local infection of the skin and subcutaneous tissue, unspecified Status: Acute Assessment and Plan: x-ray of the foot showed no osteomyelitis. status post debridement ROSA showed no significant arterial occlusive disease vancomycin d/c'd per ID BC-->+Proteus Mirabilis and Morganella morganii ID following, recommendations appreciated GS following, recommendations appreciated Continue Zosyn (6) Acute hyperkalemia: Code(s): E87.5 - Hyperkalemia Status: Acute Assessment and Plan: improved with Kayexalate and Lasix monitor (7) Diabetes mellitus with diabetic nephropathy, with long-term current use of insulin: Qualifiers: Diabetes mellitus type: type 2 Qualified Code(s): E11.21 - Type 2 diabetes mellitus with diabetic nephropathy; Z79.4 - detention (current) use of insulin Code(s): E11.21 - Type 2 diabetes mellitus with diabetic nephropathy; Z79.4 - superintendent container terminal (current) use of insulin Status: Acute Assessment and Plan: Currently on sliding scale insulin. Lantus will be decreased as blood sugars are low Last A1C 7.5 08/2020 Monitor (8) Obesity hypoventilation syndrome: Code(s): E66.2 - Morbid (severe) obesity with alveolar hypoventilation Status: Acute Assessment and Plan: With PFTs demonstrating severe restrictive ventilatory defect (9) Diastolic HF (heart failure): Code(s): I50.30 - Unspecified diastolic (congestive) heart failure Status: Acute Assessment and Plan: Patient has diastolic dysfunction and right heart failure continue Lasix ECHO 03/09 Summary 1. Left ventricular chamber dimension is normal. 2. Definity contrast ad
[2020-11-02 12:13] LABS: Glucose Point of Care 94 mg/dl (65-105)
[2020-11-02] MEDS: PROPOFOL IV EMULSION 100 ML 33.64 MG IV CONT ×3 (12:31→18:35)
[2020-11-02] MEDS: HEPARIN SOD/D5W 100 UNITS/ML 25,000 UNITS/250 ML BAG 15 UNITS IV CONT (16:07)
[2020-11-02 16:13] LABS: Glucose Point of Care 88 mg/dl (65-105)
[2020-11-02 16:19] LABS: INR 1.3; Partial Thromboplastin Time 28.6 SECONDS (22.3-36.8); Prothrombin Time 16.4 Seconds (11.1-14.7)
[2020-11-02 19:55] LABS: Glucose Point of Care 97 mg/dl (65-105)
[2020-11-02 21:59] LABS: Partial Thromboplastin Time 40.8 SECONDS (22.3-36.8)
[2020-11-02] MEDS: HEPARIN SODIUM 5,000 UNITS/ML VIAL 9500 UNITS IV PUSH (22:06)
[2020-11-02 23:22] LABS: Glucose Point of Care 88 mg/dl (65-105)
[2020-11-03] VITALS (34 sets, daily range): BP systolic 141–187; BP diastolic 72–86; PULSE 26–95; RESP 21–70; TEMP 36.6–37.5; O2SAT 90–97; BMI 52.0
[2020-11-03] MEDS: PROPOFOL IV EMULSION 100 ML 39.25 MG IV CONT (01:47)
[2020-11-03] MEDS: ALBUTEROL SULFATE NEB 2.5 MG/0.5 ML INH INHALATION ×4 (02:29→20:37)
[2020-11-03] MEDS: IPRATROPIUM BR 0.02% INH SOLN 0.5 MG/2.5 ML VIAL INHALATION ×4 (02:29→20:36)
[2020-11-03 03:02] LABS: Glucose Point of Care 110 mg/dl (65-105)
[2020-11-03 04:09] LABS: Basophils Absolute Auto 0.1 K/mm3 (0.0-0.1); Basophils Percent Auto 0.7 % (0.2-1.2); Eosinophils Percent Auto 8.2 % (0-4.4); Hematocrit 28.5 % (42.0-52.0); Hemoglobin 8.9 g/dL (14.0-18.0); Immature Granulocyte Absolute 0.27 K/mm3 (0.00-0.031); Immature Granulocyte Percent A 2.2 % (0-0.5); Lymphocytes Absolute Auto 2.44 K/mm3 (0.9-3.2); Mean Corpuscular HGB Conc 31.2 g/dl (32-36); Mean Corpuscular Hemoglobin 28.3 pg (26-34); Mean Corpuscular Volume 90.5 fl (80-100); Mean Platelet Volume 11.7 fl (7.4-10.4); Monocytes Absolute Auto 0.7 K/mm3 (0.1-0.6); Monocytes Percent Auto 5.9 % (2.6-8.5); Neutrophils Absolute Auto 7.7 K/mm3 (1.3-6.7); Nucleated Red Blood Cells Perc 0.2 % (0.0-0.2); Platelet Count Result 264 k/mm3 (150-375); Red Blood Count 3.15 M/mm3 (4.6-6.20); Red Cell Distribution Width 16.5 % (11.5-14.5); White Blood Count 12.2 K/mm3 (4.5-10.0)
[2020-11-03 04:18] LABS: Partial Thromboplastin Time 70.6 SECONDS (22.3-36.8)
[2020-11-03] MEDS: PROPOFOL IV EMULSION 100 ML 50.46 MG IV CONT ×2 (04:43→06:28)
[2020-11-03] MEDS: HEPARIN SOD/D5W 100 UNITS/ML 25,000 UNITS/250 ML BAG 20 UNITS IV CONT (04:44)
[2020-11-03 04:51] LABS: Alveolar/Arterial O2 Gradient 233.3 mmHg; Base Excess ABG 3.8 mEq/l (+/-2.0); Carboxyhemoglobin 0.3 % THb (0-2.0); Fractional Inspired Oxygen 50 %; HCO3 ABG 29.1 mEq/l (22.0-26.0); Methemoglobin ABG 0.4 %THb (0-1.5); Oxygen Content ABG 12.9 %vol (16.0-22.0); Oxygen Saturation ABG 93.8 % (95.0-100.0); Oxyhemoglobin 91.8 % THb (90.0-100.0); PCO2 ABG 47.8 mmHg (35.0-45.0); PO2 ABG 69.4 mmHg (80.0-100.0); PO2 FiO2 Ratio Arterial Blood 1.39 %; Reduced Hemoglobin 7.5 %THb (0-5.0); Total Hemoglobin 9.9 g/dL (12.0-18.0); pH ABG 7.403 (7.350-7.450)
[2020-11-03 04:52] LABS: Arterial Blood Gas PEEP 10 cmH2O; Arterial Blood Gas Vent Mode ASSIST CONTROL; Arterial Blood Gas Ventilator rate 22 /MIN; Device VENTILATOR; Modified Allen's Test Unable to perform; Site Drawn RIGHT RADIAL
[2020-11-03 04:53] LABS: Arterial Blood Gas Tidal Volume 450 ml
[2020-11-03] MEDS: CENTRAL LINE FLUSH 10 ML IV PUSH ×4 (05:27→21:18)
[2020-11-03 08:13] LABS: Glucose Point of Care 106 mg/dl (65-105)
[2020-11-03] MEDS: POLYSACCHARIDE IRON COMPLEX 150 MG CAPSULE FEED TUBE (08:44)
[2020-11-03] MEDS: MINERAL OIL/WHITE PETROLATUM OINTMENT 1 APPLIC EACH EYE ×2 (08:45→21:17)
[2020-11-03] MEDS: MICONAZOLE NITRATE 2% CREAM 30 GM TUBE 1 APPLIC TOPICAL ×2 (08:46→21:17)
[2020-11-03 09:24] LABS: Albumin Level 2.9 g/dL (3.5-5.1); Alkaline Phosphatase 155 U/L (38-126); Anion Gap 7 mmol/L (8-16); Aspartate Amino Transferase 698 U/L (17-59); Bilirubin,Total 0.6 mg/dL (0.2-1.3); Blood Urea Nitrogen 72 mg/dL (9-20); Calcium 8.2 mg/dL (8.4-10.2); Carbon Dioxide 25 mmol/L (22-30); Chloride 106 mmol/L (98-107); Estimated CRCL calculation 51 ml/min; Estimated Glomerular Filt Rate 25; Glucose 104 mg/dL (65-110); Magnesium 1.9 mg/dL (1.6-2.3); Potassium 4.1 mmol/L (3.4-5.0); Sodium 138 mmol/L (137-145)
[2020-11-03 09:47] LABS: Alanine Aminotransferase 1130 U/L (4-50)
[2020-11-03] MEDS: FUROSEMIDE INJ 40 MG/4 ML VIAL IV PUSH ×2 (10:21→17:26)
[2020-11-03 10:24] LABS: Partial Thromboplastin Time 51.1 SECONDS (22.3-36.8)
[2020-11-03] MEDS: HEPARIN SODIUM 5,000 UNITS/ML VIAL 9500 UNITS IV PUSH (11:27)
[2020-11-03] MEDS: hydrALAZINE HCL 20 MG/ML VIAL IV PUSH ×3 (11:29→21:14)
[2020-11-03 13:14] LABS: Glucose Point of Care 126 mg/dl (65-105)
[2020-11-03] MEDS: COLLAGENASE OINT 30 GM TUBE 1 APPLIC TOPICAL (13:47)
--- NOTE | 2020-11-03 14:57 | WPDINTPN ---
Progress Note: A&P Assessment and Plan (1) Cardiac arrest: Code(s): I46.9 - Cardiac arrest, cause unspecified Status: Acute Assessment and Plan: Although etiology is not fully clear it is likely secondary to aspiration pneumonia. Patient was found unresponsive on CPAP in his room Hypercarbia could also be a possibility as patient is morbidly obese. No ABG was done until patient was intubated which showed only mild hypercarbia Patient had Dopplers done 2 days ago which were negative for DVT and also was on anticoagulation until day before yesterday making PE unlikely etiology. Patient also was anemic and anticoagulation had to be stopped because of the surgery. Patient also is in acute kidney injury precluding CTA. Patient also morbidly obese and does not fit in our CT scanner Echocardiogram reviewed EKG shows sinus rhythm Head CT was negative for acute hopper Serial troponin were negative neurology tech (2) Acute respiratory failure: Code(s): J96.00 - Acute respiratory failure, unspecified whether with hypoxia or hypercapnia Status: Acute Assessment and Plan: Secondary to cardiac arrest and aspiration pneumonia. also has pulmonary edema Ventilator settings reviewed. Decrease rate to 20 FiO2 is down to 45% and peep is at 10 Chest x-ray reviewed. will continue Lasix on presentation, I wanted to get a chest CT to further evaluate his lungs but patient did not fit in our CT scanner Patient has chronic respiratory failure with severe lungs sick to disease with total lung capacity only 66% (3) Aspiration pneumonia: Code(s): J69.0 - Pneumonitis due to inhalation of food and vomit Status: Acute Assessment and Plan: Sputum and blood cultures. Patient is on Zosyn (4) Anoxic brain injury: Code(s): G93.1 - Anoxic brain damage, not elsewhere classified Status: Acute Assessment and Plan: Patient appears to be encephalopathic post code patient has completed TTM protocol for 24 years. currently sedation on hold if no significant improvement will check EEG and repeat CT scan tomorrow (5) Diabetic foot infection: Code(s): E11.628 - Type 2 diabetes mellitus with other skin complications; L08.9 - Local infection of the skin and subcutaneous tissue, unspecified Status: Acute Assessment and Plan: x-ray of the foot showed no osteomyelitis. status post debridement ROSA showed no significant arterial occlusive disease vancomycin d/c'd per ID BC-->+Proteus Mirabilis and Morganella morganii ID following, recommendations appreciated following, recommendations appreciated Continue Zosyn (6) Acute hyperkalemia: Code(s): E87.5 - Hyperkalemia Status: Acute Assessment and Plan: improved with Kayexalate and Lasix monitor (7) Diabetes mellitus with diabetic nephropathy, with long-term current use of insulin: Qualifiers: Diabetes mellitus type: type 2 Qualified Code(s): E11.21 - Type 2 diabetes mellitus with diabetic nephropathy; Z79.4 - penitentiary (current) use of insulin Code(s): E11.21 - Type 2 diabetes mellitus with diabetic nephropathy; Z79.4 - exterminator helper (current) use of insulin Status: Acute Assessment and Plan: Currently on sliding scale insulin. continue Lantus Last A1C 7.5 08/2020 Monitor (8) Obesity hypoventilation syndrome: Code(s): E66.2 - Morbid (severe) obesity with alveolar hypoventilation Status: Acute Assessment and Plan: With PFTs demonstrating severe restrictive ventilatory defect (9) Diastolic HF (heart failure): Code(s): I50.30 - Unspecified diastolic (congestive) heart failure Status: Acute Assessment and Plan: Patient has diastolic dysfunction and right heart failure continue Lasix ECHO 03/09 Summary 1. Left ventricular chamber dimension is normal. 2. Definity contrast administered improved wall motion interpretatio
--- NOTE | 2020-11-03 17:02 | PM.IMPN ---
Progress Note: A&P Assessment and Plan (1) Cardiac arrest: Code(s): I46.9 - Cardiac arrest, cause unspecified Status: Acute Assessment and Plan: Although etiology is not fully clear it is likely secondary to aspiration pneumonia. Patient was found unresponsive on CPAP in his room. Duration of down time unknown. Possibly hypercarbic but ABG done once he was intubated showed only mild hypercarbia; PE less likely given negative Dopplers 2 days before and that he is on anticoagulation up until 1 day before the event. Trop negative x4. EKG shows sinus rhythm without ischemic changes. Echo Ef 68% and Grade II diastolic dysfunction and no wall motion abnormalities. Head CT was negative for acute changes. Toelrated the hypothermia protocol. Now off sedation to assess mental status. (2) Acute respiratory failure: Code(s): J96.00 - Acute respiratory failure, unspecified whether with hypoxia or hypercapnia Status: Acute Assessment and Plan: Patient has chronic respiratory failure. Secondary to cardiac arrest, aspiration pneumonia and pulmonary edema. CXR showing persistent bilateral airspace disease. Not able to get CT chest yet. Continue abx, nebs and lasix. (3) Aspiration pneumonia: Code(s): J69.0 - Pneumonitis due to inhalation of food and vomit Status: Acute Assessment and Plan: As above. Sputum ordered. Patient is on Zosyn (4) Anoxic brain injury: Code(s): G93.1 - Anoxic brain damage, not elsewhere classified Status: Acute Assessment and Plan: Patient appears to be encephalopathic post code. Off sedation this morning. Plan for EEG and repeat CT brain if no improvement tomorrow. (5) Diabetic foot infection: Code(s): E11.628 - Type 2 diabetes mellitus with other skin complications; L08.9 - Local infection of the skin and subcutaneous tissue, unspecified Status: Acute Assessment and Plan: Presents with foul smelling left foot wound. BCx (2of2) positive felt from the foot wound. ROSA showed no significant arterial occlusive disease. Patient underwent excisional debridement of gangrenous left heel ulcer 10/31/20. ID following and abx adjusted. Continue current wound care. (6) Acute hyperkalemia: Code(s): E87.5 - Hyperkalemia Status: Acute Assessment and Plan: Improved with Kayexalate and Lasix. Stable now. Continue to monitor. (7) Diabetes mellitus with diabetic nephropathy, with long-term current use of insulin: Qualifiers: Diabetes mellitus type: type 2 Qualified Code(s): E11.21 - Type 2 diabetes mellitus with diabetic nephropathy; Z79.4 - watermaster (current) use of insulin Code(s): E11.21 - Type 2 diabetes mellitus with diabetic nephropathy; Z79.4 - watermaster (current) use of insulin Status: Acute Assessment and Plan: A1c 7.5 in August. The patient's blood glucose was reviewed on 11/03 Glucose remains well controlled. Continue AccuCheks covering with sliding scale. Hypoglycemia protocol available as needed. Was on Lantus 15U at night but has not received. Lantus decreased. May need to hold all together. (8) Obesity hypoventilation syndrome: Code(s): E66.2 - Morbid (severe) obesity with alveolar hypoventilation Status: Acute Assessment and Plan: PFTs demonstrating severe restrictive ventilatory defect. As above. (9) Diastolic HF (heart failure): Code(s): I50.30 - Unspecified diastolic (congestive) heart failure Status: Acute Assessment and Plan: Patient has diastolic dysfunction and right heart failure. Echo showing EF 68% with Grade II diastolic dysfunction and mild pulmonary HTN. Tolerating Lasix IV. (10) Transaminitis: Code(s): R74.01 - Elevation of levels of liver transaminase levels Status: Acute Assessment and Plan: AST 3034 and ALT 1661 secondary to shock liver from cardiac arrest. Hepatitis panel negati
[2020-11-03] MEDS: HEPARIN SOD/D5W 100 UNITS/ML 25,000 UNITS/250 ML BAG 25 UNITS IV CONT (17:25)
[2020-11-03 17:34] LABS: Partial Thromboplastin Time 80.7 SECONDS (22.3-36.8)
[2020-11-03 18:02] LABS: Glucose Point of Care 119 mg/dl (65-105)
[2020-11-03 18:07] LABS: Anion Gap 9 mmol/L (8-16); Blood Urea Nitrogen 69 mg/dL (9-20); Calcium 8.3 mg/dL (8.4-10.2); Carbon Dioxide 30 mmol/L (22-30); Chloride 101 mmol/L (98-107); Estimated CRCL calculation 53 ml/min; Estimated Glomerular Filt Rate 26; Glucose 121 mg/dL (65-110); Potassium 3.9 mmol/L (3.4-5.0); Sodium 140 mmol/L (137-145)
[2020-11-03 21:13] LABS: Glucose Point of Care 111 mg/dl (65-105)
[2020-11-04] VITALS (29 sets, daily range): BP systolic 149–182; BP diastolic 65–81; PULSE 71–93; RESP 20–26; TEMP 36.9–37.3; O2SAT 94–98
[2020-11-04 00:11] LABS: Glucose Point of Care 124 mg/dl (65-105)
[2020-11-04] MEDS: INSULIN GLARGINE (*BKC) 100 UNITS/ML 12 UNITS SUB-Q ×2 (00:13→21:13)
[2020-11-04] MEDS: METOCLOPRAMIDE HCL 10 MG/10 ML SOLN UDC 5 MG PO ×2 (00:14→05:40)
[2020-11-04 00:22] LABS: Partial Thromboplastin Time 72.2 SECONDS (22.3-36.8)
[2020-11-04] MEDS: hydrALAZINE HCL 20 MG/ML VIAL IV PUSH ×4 (01:18→21:17)
[2020-11-04] MEDS: IPRATROPIUM BR 0.02% INH SOLN 0.5 MG/2.5 ML VIAL INHALATION ×4 (03:54→20:12)
[2020-11-04] MEDS: ALBUTEROL SULFATE NEB 2.5 MG/0.5 ML INH INHALATION ×4 (03:54→20:12)
[2020-11-04 04:24] LABS: Hematocrit 31.3 % (42.0-52.0); Hemoglobin 9.3 g/dL (14.0-18.0); Mean Corpuscular HGB Conc 29.7 g/dl (32-36); Mean Corpuscular Hemoglobin 27.2 pg (26-34); Mean Corpuscular Volume 91.5 fl (80-100); Platelet Count Result 294 k/mm3 (150-375); Red Blood Count 3.42 M/mm3 (4.6-6.20); Red Cell Distribution Width 17.2 % (11.5-14.5); White Blood Count 13.6 K/mm3 (4.5-10.0)
[2020-11-04 04:31] LABS: Glucose Point of Care 124 mg/dl (65-105)
[2020-11-04 04:39] LABS: Partial Thromboplastin Time 52.2 SECONDS (22.3-36.8)
[2020-11-04 05:18] LABS: Albumin Level 3.2 g/dL (3.5-5.1); Alkaline Phosphatase 146 U/L (38-126); Anion Gap 9 mmol/L (8-16); Aspartate Amino Transferase 280 U/L (17-59); Bilirubin,Total 0.9 mg/dL (0.2-1.3); Blood Urea Nitrogen 66 mg/dL (9-20); Calcium 8.3 mg/dL (8.4-10.2); Carbon Dioxide 31 mmol/L (22-30); Chloride 100 mmol/L (98-107); Estimated CRCL calculation 51 ml/min; Estimated Glomerular Filt Rate 25; Glucose 138 mg/dL (65-110); Magnesium 1.8 mg/dL (1.6-2.3); Sodium 140 mmol/L (137-145)
[2020-11-04 05:37] LABS: Alveolar/Arterial O2 Gradient 141.6 mmHg; Base Excess ABG 6.7 mEq/l (+/-2.0); Carboxyhemoglobin 0.2 % THb (0-2.0); Fractional Inspired Oxygen 45 %; HCO3 ABG 30.9 mEq/l (22.0-26.0); Methemoglobin ABG 0.5 %THb (0-1.5); Oxygen Content ABG 14.6 %vol (16.0-22.0); Oxygen Saturation ABG 98.8 % (95.0-100.0); Oxyhemoglobin 97.2 % THb (90.0-100.0); PCO2 ABG 42.7 mmHg (35.0-45.0); PO2 ABG 130.7 mmHg (80.0-100.0); Reduced Hemoglobin 2.1 %THb (0-5.0); Total Hemoglobin 10.5 g/dL (12.0-18.0); pH ABG 7.477 (7.350-7.450)
[2020-11-04 05:38] LABS: Device VENTILATOR; Modified Allen's Test Pass; Site Drawn RIGHT RADIAL
[2020-11-04] MEDS: HEPARIN SOD/D5W 100 UNITS/ML 25,000 UNITS/250 ML BAG 30 UNITS IV CONT ×2 (05:38→13:11)
[2020-11-04 05:39] LABS: Arterial Blood Gas PEEP 10 cmH2O; Arterial Blood Gas Vent Mode CMV; Arterial Blood Gas Ventilator rate 22 /MIN
[2020-11-04] MEDS: HEPARIN SODIUM 5,000 UNITS/ML VIAL 9500 UNITS IV PUSH (05:39)
[2020-11-04 05:40] LABS: Arterial Blood Gas Tidal Volume 450 ml
[2020-11-04] MEDS: CENTRAL LINE FLUSH 10 ML IV PUSH ×4 (05:41→21:14)
[2020-11-04 07:36] LABS: Glucose Point of Care 153 mg/dl (65-105)
[2020-11-04] MEDS: POLYSACCHARIDE IRON COMPLEX 150 MG CAPSULE FEED TUBE (09:02)
[2020-11-04] MEDS: amLODIPine BESYLATE 5 MG TABLET 10 MG PO (09:02)
[2020-11-04] MEDS: carvediloL 3.125 MG TABLET PO ×2 (09:07→21:12)
[2020-11-04] MEDS: FUROSEMIDE INJ 40 MG/4 ML VIAL IV PUSH ×2 (09:08→16:55)
[2020-11-04] MEDS: MINERAL OIL/WHITE PETROLATUM OINTMENT 1 APPLIC EACH EYE ×2 (09:08→21:14)
[2020-11-04] MEDS: COLLAGENASE OINT 30 GM TUBE 1 APPLIC TOPICAL (09:08)
[2020-11-04] MEDS: MICONAZOLE NITRATE 2% CREAM 30 GM TUBE 1 APPLIC TOPICAL ×2 (09:08→21:13)
[2020-11-04 09:52] LABS: Alanine Aminotransferase 775 U/L (4-50)
--- NOTE | 2020-11-04 10:41 | WPDINTPN ---
Progress Note: A&P Assessment and Plan (1) Cardiac arrest: Code(s): I46.9 - Cardiac arrest, cause unspecified Status: Acute Assessment and Plan: Although etiology is not fully clear it is likely secondary to aspiration pneumonia. Patient was found unresponsive on CPAP in his room Hypercarbia could also be a possibility as patient is morbidly obese. No ABG was done until patient was intubated which showed only mild hypercarbia Patient had Dopplers done 2 days ago which were negative for DVT and also was on anticoagulation until day before yesterday making PE unlikely etiology. Patient also was anemic and anticoagulation had to be stopped because of the surgery. Patient also is in acute kidney injury precluding CTA. Patient also morbidly obese and does not fit in our CT scanner Echocardiogram reviewed EKG shows sinus rhythm Head CT was negative for acute hopper Serial troponin were negative fbi sharpshooter (2) Acute respiratory failure: Code(s): J96.00 - Acute respiratory failure, unspecified whether with hypoxia or hypercapnia Status: Acute Assessment and Plan: Secondary to cardiac arrest and aspiration pneumonia. also has pulmonary edema Ventilator settings reviewed. decrease tidal volume to 420. decrease PEEP to 8 Decrease rate to 20 FiO2 is at 45% Chest x-ray reviewed. will continue Lasix On presentation, I wanted to get a chest CT to further evaluate his lungs but patient did not fit in our CT scanner. I will send patient again for repeat CT temp today Patient has chronic respiratory failure with severe lungs sick to disease with total lung capacity only 66% (3) Aspiration pneumonia: Code(s): J69.0 - Pneumonitis due to inhalation of food and vomit Status: Acute Assessment and Plan: Sputum and blood cultures. Patient is on Zosyn (4) Anoxic brain injury: Code(s): G93.1 - Anoxic brain damage, not elsewhere classified Status: Acute Assessment and Plan: Patient appears to be encephalopathic post code patient has completed TTM protocol for 24 years. currently sedation on hold patient appears slightly more awake today as compared to yesterday but again has no purposeful movement. will continue holding sedation for now. Will repeat CT scan today of the head (5) Diabetic foot infection: Code(s): E11.628 - Type 2 diabetes mellitus with other skin complications; L08.9 - Local infection of the skin and subcutaneous tissue, unspecified Status: Acute Assessment and Plan: x-ray of the foot showed no osteomyelitis. status post debridement ROSA showed no significant arterial occlusive disease vancomycin d/c'd per ID BC-->+Proteus Mirabilis and Morganella morganii ID following, recommendations appreciated GS following, recommendations appreciated Continue Zosyn (6) Acute hyperkalemia: Code(s): E87.5 - Hyperkalemia Status: Acute Assessment and Plan: improved with Kayexalate and Lasix monitor (7) Diabetes mellitus with diabetic nephropathy, with long-term current use of insulin: Qualifiers: Diabetes mellitus type: type 2 Qualified Code(s): E11.21 - Type 2 diabetes mellitus with diabetic nephropathy; Z79.4 - senior living (current) use of insulin Code(s): E11.21 - Type 2 diabetes mellitus with diabetic nephropathy; Z79.4 - senior living (current) use of insulin Status: Acute Assessment and Plan: Currently on sliding scale insulin. continue Lantus Last A1C 7.5 08/2020 Monitor (8) Obesity hypoventilation syndrome: Code(s): E66.2 - Morbid (severe) obesity with alveolar hypoventilation Status: Acute Assessment and Plan: With PFTs demonstrating severe restrictive ventilatory defect (9) Diastolic HF (heart failure): Code(s): I50.30 - Unspecified diastolic (congestive) heart failure Status: Acute Assessment and Plan: Patient has diastolic dysfunct
--- NOTE | 2020-11-04 11:24 | PCDIET ---
Nutrition Follow-Up Complete: Nutrition Diagnosis: Inadequate oral intake related to oral intubation as evidenced by need for enteral feedings. Nutrition Goal: Patient to meet estimated nutritional needs. Goal not met. Patient had emesis overnight; thus, tube feedings not advanced toward goal. Reglan increased, and tube feedings infusing at 20mL/hr. MD ordered to advance Glucerna 1.[address] scan. Last recorded weight is 176.5 kg which is down from last review. -I/O. Bowel Motility: Abdomen firm, per RN. Last documented BM on 11/02/20 x 1. Labs Reviewed: WBC (13.6), RBC (3.42), Hgb (9.3), Hct (31.3), Glu (138), BUN (66), Cr (2.7), Alb (3.2), Bouchra Ca (8.94) Meds Noted: Coreg, Lasix, Nifirex-150, Apresoline, Lantus, Albuterol, Norvasc, Atrovent, Reglan, Zosyn Additional Notes: Left heel with dressing s/p debridement. Left fifth toe with diabetic ulcer. Will continue to monitor with same goal. Nutrition Monitoring and Evaluation: Follow up every Tuesday/Tuesday.
[2020-11-04 12:25] LABS: Glucose Point of Care 150 mg/dl (65-105)
[2020-11-04] MEDS: METOCLOPRAMIDE HCL 10 MG/10 ML SOLN UDC PO ×3 (12:52→23:53)
[2020-11-04 12:59] LABS: Partial Thromboplastin Time 52.2 SECONDS (22.3-36.8)
[2020-11-04 13:27] LABS: Partial Thromboplastin Time 111.9 SECONDS (22.3-36.8)
--- NOTE | 2020-11-04 15:43 | PM.IMPN ---
Progress Note: A&P Assessment and Plan (1) Cardiac arrest: Code(s): I46.9 - Cardiac arrest, cause unspecified Status: Acute Assessment and Plan: Although etiology is not fully clear it is likely secondary to aspiration pneumonia. Patient was found unresponsive on CPAP in his room. Duration of down time unknown. Possibly hypercarbic but ABG done once he was intubated showed only mild hypercarbia; PE less likely given negative Dopplers 2 days before and that he is on anticoagulation up until 1 day before the event. Trop negative x4 making PE and an acute cardiac event less likely. EKG shows sinus rhythm without ischemic changes. Echo EF 68% and Grade II diastolic dysfunction and no wall motion abnormalities. Head CT was negative for acute changes. Toelrated the hypothermia protocol. Now off hypothermia protocol and off sedation. No meaningful cognitive improvement at this time. Repeat CT brain no acute findings. (2) Acute respiratory failure: Code(s): J96.00 - Acute respiratory failure, unspecified whether with hypoxia or hypercapnia Status: Acute Assessment and Plan: Patient has chronic respiratory failure. Acute respiroatry failure secondary to cardiac arrest, aspiration pneumonia and pulmonary edema. CXR showing persistent bilateral airspace disease.CT chest shownig small pleural effusion and small volume of ascites. Continue abx, nebs and lasix. (3) Aspiration pneumonia: Code(s): J69.0 - Pneumonitis due to inhalation of food and vomit Status: Acute Assessment and Plan: As above. Sputum ordered. Patient is on Zosyn (4) Anoxic brain injury: Code(s): G93.1 - Anoxic brain damage, not elsewhere classified Status: Acute Assessment and Plan: Patient appears to be encephalopathic post code. Off sedation since yesterday morning. Repeat CT brain showing no acute findings. May need transfer for a complere neuro evaluation if he does not improve significantly. (5) Diabetic foot infection: Code(s): E11.628 - Type 2 diabetes mellitus with other skin complications; L08.9 - Local infection of the skin and subcutaneous tissue, unspecified Status: Acute Assessment and Plan: Presents with foul smelling left foot wound. BCx (2of2) positive felt from the foot wound. ROSA showed no significant arterial occlusive disease. Patient underwent excisional debridement of gangrenous left heel ulcer 10/31/20. ID following and abx adjusted. Continue current wound care. (6) Bacteremia: Code(s): R78.81 - Bacteremia Status: Acute Assessment and Plan: BCx (2of2) on 10/28 positive for Proteus Mirabilis and Morganella morganii both sensitive to Zosyn. Related to the foot infection. ID following and appreciate their input. Continue Zosyn (7) Acute hyperkalemia: Code(s): E87.5 - Hyperkalemia Status: Acute Assessment and Plan: Improved with Kayexalate and Lasix. Stable now. Continue to monitor. (8) Diabetes mellitus with diabetic nephropathy, with long-term current use of insulin: Qualifiers: Diabetes mellitus type: type 2 Qualified Code(s): E11.21 - Type 2 diabetes mellitus with diabetic nephropathy; Z79.4 - manager terminal (current) use of insulin Code(s): E11.21 - Type 2 diabetes mellitus with diabetic nephropathy; Z79.4 - snf (current) use of insulin Status: Acute Assessment and Plan: A1c 7.5 in August. The patient's blood glucose was reviewed on 11/04 Glucose remains well controlled. Continue AccuCheks covering with sliding scale. Hypoglycemia protocol available as needed. Currently on Lantus 12U at night (9) Obesity hypoventilation syndrome: Code(s): E66.2 - Morbid (severe) obesity with alveolar hypoventilation Status: Acute Assessment and Plan: PFTs demonstrating severe restrictive ventilatory defect. As above. (10) Diastolic HF (heart failure): Co
[2020-11-04 16:10] LABS: Glucose Point of Care 138 mg/dl (65-105)
[2020-11-04] MEDS: EUCERIN CREAM 120 GM JAR 1 APPLIC TOPICAL (16:56)
[2020-11-04 19:54] LABS: Partial Thromboplastin Time 88.9 SECONDS (22.3-36.8)
[2020-11-04 20:20] LABS: Glucose Point of Care 149 mg/dl (65-105)
[2020-11-04] MEDS: HEPARIN SOD/D5W 100 UNITS/ML 25,000 UNITS/250 ML BAG 28 UNITS IV CONT (22:44)
[2020-11-05] VITALS (32 sets, daily range): BP systolic 149–181; BP diastolic 63–111; PULSE 72–88; RESP 12–84; TEMP 36.6–37.4; O2SAT 91–96
[2020-11-05 00:07] LABS: Glucose Point of Care 143 mg/dl (65-105)
[2020-11-05] MEDS: hydrALAZINE HCL 20 MG/ML VIAL IV PUSH ×3 (01:05→19:38)
[2020-11-05 02:29] LABS: Partial Thromboplastin Time 84.1 SECONDS (22.3-36.8)
[2020-11-05] MEDS: ALBUTEROL SULFATE NEB 2.5 MG/0.5 ML INH INHALATION ×4 (02:34→19:45)
[2020-11-05] MEDS: IPRATROPIUM BR 0.02% INH SOLN 0.5 MG/2.5 ML VIAL INHALATION ×4 (02:34→19:45)
[2020-11-05 04:35] LABS: Glucose Point of Care 127 mg/dl (65-105)
[2020-11-05 04:44] LABS: Alveolar/Arterial O2 Gradient 140.5 mmHg; Base Excess ABG 8.2 mEq/l (+/-2.0); Carboxyhemoglobin 0.3 % THb (0-2.0); Fractional Inspired Oxygen 45 %; HCO3 ABG 33.9 mEq/l (22.0-26.0); Methemoglobin ABG 0.6 %THb (0-1.5); Oxygen Content ABG 17.6 %vol (16.0-22.0); Oxygen Saturation ABG 98.4 % (95.0-100.0); PCO2 ABG 51.6 mmHg (35.0-45.0); PO2 ABG 121.7 mmHg (80.0-100.0); Reduced Hemoglobin 2.1 %THb (0-5.0); Total Hemoglobin 12.8 g/dL (12.0-18.0); pH ABG 7.435 (7.350-7.450)
[2020-11-05 04:45] LABS: Arterial Blood Gas PEEP 8 cmH2O; Arterial Blood Gas Vent Mode ASSIST CONTROL; Arterial Blood Gas Ventilator rate 20 /MIN; Device VENTILATOR; Modified Allen's Test Pass; Site Drawn RIGHT RADIAL
[2020-11-05 04:46] LABS: Arterial Blood Gas Tidal Volume 420 ml
[2020-11-05] MEDS: METOCLOPRAMIDE HCL 10 MG/10 ML SOLN UDC PO ×4 (06:04→23:09)
[2020-11-05] MEDS: CENTRAL LINE FLUSH 10 ML IV PUSH ×4 (06:05→21:03)
[2020-11-05 06:06] LABS: Hematocrit 32.1 % (42.0-52.0); Hemoglobin 9.4 g/dL (14.0-18.0); Mean Corpuscular HGB Conc 29.3 g/dl (32-36); Mean Corpuscular Hemoglobin 27.9 pg (26-34); Mean Corpuscular Volume 95.3 fl (80-100); Platelet Count Result 279 k/mm3 (150-375); Red Blood Count 3.37 M/mm3 (4.6-6.20); Red Cell Distribution Width 17.2 % (11.5-14.5); White Blood Count 13.4 K/mm3 (4.5-10.0)
[2020-11-05 06:48] LABS: Alanine Aminotransferase 565 U/L (4-50); Albumin Level 3.5 g/dL (3.5-5.1); Alkaline Phosphatase 134 U/L (38-126); Anion Gap 8 mmol/L (8-16); Aspartate Amino Transferase 125 U/L (17-59); Bilirubin,Total 0.7 mg/dL (0.2-1.3); Blood Urea Nitrogen 62 mg/dL (9-20); Calcium 8.5 mg/dL (8.4-10.2); Carbon Dioxide 35 mmol/L (22-30); Chloride 100 mmol/L (98-107); Estimated CRCL calculation 53 ml/min; Estimated Glomerular Filt Rate 27; Glucose 150 mg/dL (65-110); Magnesium 1.8 mg/dL (1.6-2.3); Potassium 4.1 mmol/L (3.4-5.0); Sodium 143 mmol/L (137-145)
[2020-11-05] MEDS: HEPARIN SOD/D5W 100 UNITS/ML 25,000 UNITS/250 ML BAG 28 UNITS IV CONT ×2 (08:28→17:43)
[2020-11-05 08:33] LABS: Glucose Point of Care 138 mg/dl (65-105)
[2020-11-05] MEDS: POLYSACCHARIDE IRON COMPLEX 150 MG CAPSULE FEED TUBE (08:34)
[2020-11-05] MEDS: amLODIPine BESYLATE 5 MG TABLET 10 MG PO (08:35)
[2020-11-05] MEDS: carvediloL 3.125 MG TABLET PO ×2 (08:35→20:12)
[2020-11-05] MEDS: MICONAZOLE NITRATE 2% CREAM 30 GM TUBE 1 APPLIC TOPICAL ×2 (08:36→20:13)
[2020-11-05] MEDS: COLLAGENASE OINT 30 GM TUBE 1 APPLIC TOPICAL (08:36)
[2020-11-05] MEDS: FUROSEMIDE INJ 40 MG/4 ML VIAL IV PUSH (08:36)
[2020-11-05] MEDS: MINERAL OIL/WHITE PETROLATUM OINTMENT 1 APPLIC EACH EYE ×2 (08:37→20:13)
[2020-11-05] MEDS: EUCERIN CREAM 120 GM JAR 1 APPLIC TOPICAL ×2 (08:37→16:09)
--- NOTE | 2020-11-05 09:26 | PM.IMPN ---
Progress Note: A&P Assessment and Plan (1) Cardiac arrest: Code(s): I46.9 - Cardiac arrest, cause unspecified Status: Acute Assessment and Plan: Although etiology is not fully clear it is likely secondary to aspiration pneumonia. Patient was found unresponsive on CPAP in his room. Duration of down time unknown. Possibly hypercarbic but ABG done once he was intubated showed only mild hypercarbia; PE less likely given negative Dopplers 2 days before and that he is on anticoagulation up until 1 day before the event. Trop negative x4 making PE and an acute cardiac event less likely. EKG shows sinus rhythm without ischemic changes. Echo EF 68% and Grade II diastolic dysfunction and no wall motion abnormalities. Head CT 11/01 was negative for acute changes. Tolerated the hypothermia protocol. Now off hypothermia protocol and off sedation since 11/03 AM. Not responsive off sedation. Repeat CT brain 11/04 showing no acute findings. No meaningful cognitive improvement at this time. (2) Acute respiratory failure: Code(s): J96.00 - Acute respiratory failure, unspecified whether with hypoxia or hypercapnia Status: Acute Assessment and Plan: Patient has chronic respiratory failure. Acute respiratory failure secondary to cardiac arrest, aspiration pneumonia and pulmonary edema. CXR yesterday showing persistent bilateral airspace disease. CT chest 11/04 showing small pleural effusion and small volume of ascites. Continue abx, nebs. (3) Aspiration pneumonia: Code(s): J69.0 - Pneumonitis due to inhalation of food and vomit Status: Acute Assessment and Plan: As above. No CXR today. Patient is on Zosyn (4) Anoxic brain injury: Code(s): G93.1 - Anoxic brain damage, not elsewhere classified Status: Acute Assessment and Plan: Patient appears to be encephalopathic post code. Off sedation since 11/[address] brain showing no acute findings. He does not appear to have significant improvement in his mental status. May need transfer for a complete neuro evaluation so no neuro available here. (5) Diabetic foot infection: Code(s): E11.628 - Type 2 diabetes mellitus with other skin complications; L08.9 - Local infection of the skin and subcutaneous tissue, unspecified Status: Acute Assessment and Plan: Presents with foul smelling left foot wound. BCx (2of2) positive felt from the foot wound. ROSA showed no significant arterial occlusive disease. Patient underwent excisional debridement of gangrenous left heel ulcer 10/31/20. ID following and abx adjusted. Continue current wound care. (6) Bacteremia: Code(s): R78.81 - Bacteremia Status: Acute Assessment and Plan: BCx (2of2) on 10/28 positive for Proteus Mirabilis and Morganella morganii both sensitive to Zosyn. Related to the foot infection. ID following and appreciate their input. Continue Zosyn. (7) Acute hyperkalemia: Code(s): E87.5 - Hyperkalemia Status: Acute Assessment and Plan: Improved with Kayexalate and Lasix. Stable now. Continue to monitor. (8) Diabetes mellitus with diabetic nephropathy, with long-term current use of insulin: Qualifiers: Diabetes mellitus type: type 2 Qualified Code(s): E11.21 - Type 2 diabetes mellitus with diabetic nephropathy; Z79.4 - roasterman (current) use of insulin Code(s): E11.21 - Type 2 diabetes mellitus with diabetic nephropathy; Z79.4 - roasterman (current) use of insulin Status: Acute Assessment and Plan: A1c 7.5 in August. The patient's blood glucose was reviewed on 11/05 Glucose remains well controlled. Continue AccuCheks covering with sliding scale. Hypoglycemia protocol available as needed. Currently on Lantus 12U at night (9) Obesity hypoventilation syndrome: Code(s): E66.2 - Morbid (severe) obesity with alveolar hypoventilation Status: Acute Assessment and Plan:
--- NOTE | 2020-11-05 11:46 | PM.PNGS ---
Progress Note: A&P Assessment and Plan (1) Ulcer of left heel: Code(s): L97.429 - Non-pressure chronic ulcer of left heel and midfoot with unspecified severity Status: Chronic Assessment and Plan: Better after excisional debridement a few days ago. Will start 0.25% Dakin solution b.i.d. and keep heel elevated to avoid enlarging the decubitus ulcer of the left heel. Patient's overall condition noted. Will follow peripherally. Subjective Subjective Date/Time Seen: 11/05/20 11:46 Patient reports: other (Unable to obtain, mechanical ventilator) Review of Systems Review of Systems: ROS unobtainable: Yes unobtainable due to endotracheal tube and unobtainable due to mental status Exam Extrem: Left lower extremity: foot (Left heel ulcer about 60% black, soft, odor) Details: other (Reviewed with wound nurses) Objective Data Vital Signs Vital Signs: Vital Signs - 24 hr 11/04/20 12:00 11/04/20 14:00 11/04/20 14:16 Temperature 37.2 C Pulse Rate 76 76 71 Respiratory Rate 20 20 22 H Blood Pressure 163/73 H 167/73 H Pulse Oximetry 97 96 11/04/20 14:20 11/04/20 14:23 11/04/20 16:00 Temperature 36.9 C Pulse Rate 75 75 72 Respiratory Rate 23 H 22 H Blood Pressure 169/72 H Pulse Oximetry 96 97 11/04/20 16:59 11/04/20 18:00 11/04/20 20:00 Temperature 37.1 C Pulse Rate 74 79 88 Respiratory Rate 20 20 Blood Pressure 162/69 H 182/75 H Pulse Oximetry 96 97 97 11/04/20 20:16 11/04/20 20:17 11/04/20 20:26 Temperature Pulse Rate 82 82 86 Respiratory Rate 20 22 H Blood Pressure Pulse Oximetry 96 11/04/20 21:00 11/04/20 21:12 11/04/20 22:00 Temperature Pulse Rate 81 75 81 Respiratory Rate 20 20 Blood Pressure 178/81 H 164/70 H Pulse Oximetry 98 98 11/04/20 23:41 11/05/20 00:00 11/05/20 01:00 Temperature 37.2 C Pulse Rate 80 81 86 Respiratory Rate 20 20 Blood Pressure 164/72 H 181/73 H Pulse Oximetry 95 95 95 0818/21 02:00 11/05/20 02:35 11/05/20 02:36 Temperature Pulse Rate 82 83 83 Respiratory Rate 20 25 H Blood Pressure 152/67 H Pulse Oximetry 96 95 11/05/20 02:45 11/05/20 04:00 11/05/20 04:27 Temperature 36.6 C Pulse Rate 88 78 81 Respiratory Rate 24 H 20 Blood Pressure 172/72 H Pulse Oximetry 94 95 11/05/20 06:00 11/05/20 06:45 11/05/20 08:00 Temperature Pulse Rate 78 77 79 Respiratory Rate 84 H 20 23 H Blood Pressure 162/79 H 151/63 H 164/70 H Pulse Oximetry 96 96 96 11/05/20 08:35 11/05/20 09:36 11/05/20 09:40 Temperature Pulse Rate 77 72 81 Respiratory Rate 23 H Blood Pressure Pulse Oximetry 95 11/05/20 09:52 11/05/20 10:00 11/05/20 10:58 Temperature Pulse Rate 85 84 84 Respiratory Rate 24 H 12 Blood Pressure 156/77 H Pulse Oximetry 93 92 Intake/Output Intake/Output: Intake & Output 11/02/20 11/03/20 11/04/20 11/05/20 23:59 23:59 23:59 23:59 Intake Total 2390 2057 149 596 Output Total 6760 2120 0150 2550 [facility] -[id number] [id number] [id number] [id number] Meds/Results Medications: Active Medications Generic Name Dose Route Start Last Admin Trade Name Freq PRN Reason Stop Dose Admin Acetaminophen 650 mg 11/02/20 07:40 Acetaminophen 325 Mg Tablet PO Q4H PRN Fever Albuterol 2 puff 10/28/20 22:30 Albuterol Sulfate (*Sp) Aerosol 1 Puff INHALATION TID PRN Shortness Of Breath Albuterol 2.5 mg 11/01/20 20:00 11/05/20 09:36 Albuterol Sulfate Neb 2.5 Mg/0.5 Ml Inh INHALATION 2.5 mg Q6HRT JONNA Administration Amlodipine Besylate 10 mg 11/04/20 09:00 11/05/20 08:35 Amlodipine Besylate 5 Mg Tablet PO 10 mg QAM JONNA Administration Carvedilol 3.125 mg 11/04/20 09:00 11/05/20 08:35 Carvedilol 3.125 Mg Tablet PO 3.125 mg Q12HR JONNA Administration Dextrose 12.5 gm 10/28/20 22:25 Dextrose 50% 25 Gm/50 Ml Syringe IV PUSH PRN PRN Hypoglycemia Protocol Glucagon 1 mg 10/28/20 22:25 Glucagon For In
[2020-11-05 11:49] LABS: Glucose Point of Care 146 mg/dl (65-105)
[2020-11-05] MEDS: SOD HYPOCHLORITE 1/4 STRENGTH 473 ML 1 APPLIC TOPICAL ×2 (12:20→20:13)
--- NOTE | 2020-11-05 12:36 | PCDIET ---
ICU Rounding Note: Patient receiving Glucerna 1.2 at 20mL/hr. MD order to advance toward goal rate. Will monitor tolerance at ordered rate of 50mL/hr and consider further advancing in next 24-48 hours, if indicated. Last recorded weight is 170.4kg which is down from last review. -I/O. Bowel Motility: +BM x 1 on 11/04/20. Labs Reviewed: WBC (13.4), RBC (3.31), Hgb (9.4), Hct (32.1), Glu (150), BUN (62), Cr (2.5) Meds Noted: Albuterol, Norvasc, Coreg, Apresoline, Novolog, Lantus, Atrovent, Reglan, Zosyn, Nifirex-150, Lasix Additional Notes: Left heel and left fifth toe ulcers documented. Following daily in ICU rounds. Assessing/reassessing every Tuesday/Tuesday.
--- NOTE | 2020-11-05 14:34 | WPDINTPN ---
Progress Note: A&P Assessment and Plan (1) Cardiac arrest: Code(s): I46.9 - Cardiac arrest, cause unspecified Status: Acute Assessment and Plan: Currently arrest on 11/01: Etiology unclear, could be secondary to aspiration pneumonia. Patient was found unresponsive on CPAP in his room. Be related to hypercarbia Patient had Dopplers done 2 days ago which were negative for DVT and also was on anticoagulation until day before yesterday making PE unlikely etiology. Patient also was anemic and anticoagulation had to be stopped because of the surgery. Patient also is in acute kidney injury precluding CTA. Patient also morbidly obese and does not fit in our CT scanner -Echocardiogram reviewed EKG shows sinus rhythm Head CT was negative for acute change Serial troponin were negative recreation superintendent (2) Acute respiratory failure: Code(s): J96.00 - Acute respiratory failure, unspecified whether with hypoxia or hypercapnia Status: Acute Assessment and Plan: Secondary to cardiac arrest and aspiration pneumonia. also has pulmonary edema Ventilator settings reviewed. decrease tidal volume to 420. Peep of 8 and 45% FiO2 Chest x-ray reviewed. -will hold Lasix as creatinine is increasing Patient has chronic respiratory failure with severe lungs sick to disease with total lung capacity only 66% (3) Aspiration pneumonia: Code(s): J69.0 - Pneumonitis due to inhalation of food and vomit Status: Acute Assessment and Plan: Sputum and blood cultures. Patient is on Zosyn (4) Anoxic brain injury: Code(s): G93.1 - Anoxic brain damage, not elsewhere classified Status: Acute Assessment and Plan: Patient appears to be encephalopathic post code patient has completed TTM protocol for 24hrs -sedation has been on hold since 11/03. -patient tries to open his eyes but does not blink to threat, positive pupillary, corneal, gag, cough reflex. Patient also has spontaneous breathing on pressure support ventilation -no seizure activity noted - (5) Diabetic foot infection: Code(s): E11.628 - Type 2 diabetes mellitus with other skin complications; L08.9 - Local infection of the skin and subcutaneous tissue, unspecified Status: Acute Assessment and Plan: x-ray of the foot showed no osteomyelitis. status post debridement ROSA showed no significant arterial occlusive disease vancomycin d/c'd per ID BC-->+Proteus Mirabilis and Morganella morganii ID following, recommendations appreciated GS following, recommendations appreciated Continue Zosyn (6) Acute hyperkalemia: Code(s): E87.5 - Hyperkalemia Status: Acute Assessment and Plan: improved with Kayexalate and Lasix monitor (7) Diabetes mellitus with diabetic nephropathy, with long-term current use of insulin: Qualifiers: Diabetes mellitus type: type 2 Qualified Code(s): E11.21 - Type 2 diabetes mellitus with diabetic nephropathy; Z79.4 - skilled nursing (current) use of insulin Code(s): E11.21 - Type 2 diabetes mellitus with diabetic nephropathy; Z79.4 - skilled nursing (current) use of insulin Status: Acute Assessment and Plan: Currently on sliding scale insulin. continue Lantus Last A1C 7.5 08/2020 Monitor (8) Obesity hypoventilation syndrome: Code(s): E66.2 - Morbid (severe) obesity with alveolar hypoventilation Status: Acute Assessment and Plan: With PFTs demonstrating severe restrictive ventilatory defect (9) Diastolic HF (heart failure): Code(s): I50.30 - Unspecified diastolic (congestive) heart failure Status: Acute Assessment and Plan: Patient has diastolic dysfunction and right heart failure Will reassess creatinine in the morning and re-dose Lasix ECHO 03/09 Summary 1. Left ventricular chamber dimension is normal. 2. Definity contrast administered improved wall motion interpretation. 3. Left harjinder
[2020-11-05 16:01] LABS: Glucose Point of Care 139 mg/dl (65-105)
[2020-11-05 19:38] LABS: Glucose Point of Care 131 mg/dl (65-105)
[2020-11-05] MEDS: MORPHINE SULFATE (*CRX) 2 MG/ML INJ IV PUSH (19:39)
[2020-11-05] MEDS: INSULIN GLARGINE (*BKC) 100 UNITS/ML 12 UNITS SUB-Q (20:11)
[2020-11-05 23:09] LABS: Glucose Point of Care 125 mg/dl (65-105)
[2020-11-06] VITALS (27 sets, daily range): BP systolic 148–166; BP diastolic 59–77; PULSE 71–88; RESP 19–24; TEMP 36.8–37.3; O2SAT 93–99
[2020-11-06] MEDS: hydrALAZINE HCL 20 MG/ML VIAL IV PUSH ×3 (00:18→21:19)
[2020-11-06] MEDS: MORPHINE SULFATE (*CRX) 2 MG/ML INJ IV PUSH (00:19)
[2020-11-06] MEDS: ALBUTEROL SULFATE NEB 2.5 MG/0.5 ML INH INHALATION ×4 (01:02→19:39)
[2020-11-06] MEDS: HEPARIN SOD/D5W 100 UNITS/ML 25,000 UNITS/250 ML BAG 28 UNITS IV CONT ×3 (01:46→20:37)
[2020-11-06 04:59] LABS: Alveolar/Arterial O2 Gradient 148.4 mmHg; Base Excess ABG 11.8 mEq/l (+/-2.0); Carboxyhemoglobin 0.5 % THb (0-2.0); Fractional Inspired Oxygen 45 %; HCO3 ABG 37.4 mEq/l (22.0-26.0); Methemoglobin ABG 0.3 %THb (0-1.5); Oxygen Content ABG 15.4 %vol (16.0-22.0); Oxygen Saturation ABG 98.2 % (95.0-100.0); PCO2 ABG 54.2 mmHg (35.0-45.0); PO2 ABG 110.8 mmHg (80.0-100.0); PO2 FiO2 Ratio Arterial Blood 2.46 %; Reduced Hemoglobin 2.2 %THb (0-5.0); Total Hemoglobin 11.2 g/dL (12.0-18.0); pH ABG 7.457 (7.350-7.450)
[2020-11-06 05:00] LABS: Arterial Blood Gas Ventilator rate 20 /MIN; Device VENTILATOR; Modified Allen's Test Pass; Site Drawn RIGHT RADIAL
[2020-11-06 05:01] LABS: Arterial Blood Gas PEEP 8 cmH2O; Arterial Blood Gas Tidal Volume 420 ml; Arterial Blood Gas Vent Mode CMV
[2020-11-06] MEDS: METOCLOPRAMIDE HCL 10 MG/10 ML SOLN UDC PO ×3 (05:47→18:01)
[2020-11-06 05:48] LABS: Hematocrit 32.2 % (42.0-52.0); Hemoglobin 9.3 g/dL (14.0-18.0); Mean Corpuscular HGB Conc 28.9 g/dl (32-36); Mean Corpuscular Hemoglobin 27.9 pg (26-34); Mean Corpuscular Volume 96.7 fl (80-100); Mean Platelet Volume 11.2 fl (7.4-10.4); Platelet Count Result 264 k/mm3 (150-375); Red Blood Count 3.33 M/mm3 (4.6-6.20); Red Cell Distribution Width 17.1 % (11.5-14.5); White Blood Count 12.9 K/mm3 (4.5-10.0)
[2020-11-06] MEDS: CENTRAL LINE FLUSH 10 ML IV PUSH ×3 (05:49→21:23)
[2020-11-06 06:02] LABS: Alanine Aminotransferase 425 U/L (4-50); Albumin Level 3.6 g/dL (3.5-5.1); Alkaline Phosphatase 117 U/L (38-126); Anion Gap 4 mmol/L (8-16); Aspartate Amino Transferase 90 U/L (17-59); Bilirubin,Total 0.8 mg/dL (0.2-1.3); Blood Urea Nitrogen 53 mg/dL (9-20); Calcium 8.4 mg/dL (8.4-10.2); Carbon Dioxide 38 mmol/L (22-30); Chloride 104 mmol/L (98-107); Estimated CRCL calculation 58 ml/min; Estimated Glomerular Filt Rate 30; Glucose 143 mg/dL (65-110); Partial Thromboplastin Time 90.9 SECONDS (22.3-36.8); Potassium 3.8 mmol/L (3.4-5.0); Sodium 146 mmol/L (137-145)
--- NOTE | 2020-11-06 06:30 | PC.NURSE ---
Patient noted to have tube feed emesis. NG connected to wall suction at [facility]. Tube feeding held. Oral suction preformed. Blood streaked clear frothy mucous suctioned via ETT.
[2020-11-06] MEDS: IPRATROPIUM BR 0.02% INH SOLN 0.5 MG/2.5 ML VIAL INHALATION ×3 (08:05→19:40)
[2020-11-06] MEDS: amLODIPine BESYLATE 5 MG TABLET 10 MG PO (08:17)
[2020-11-06] MEDS: POLYSACCHARIDE IRON COMPLEX 150 MG CAPSULE FEED TUBE (08:18)
[2020-11-06] MEDS: carvediloL 3.125 MG TABLET PO ×2 (08:18→20:33)
[2020-11-06] MEDS: MICONAZOLE NITRATE 2% CREAM 30 GM TUBE 1 APPLIC TOPICAL ×2 (08:19→20:33)
[2020-11-06] MEDS: EUCERIN CREAM 120 GM JAR 1 APPLIC TOPICAL ×2 (08:19→18:01)
[2020-11-06] MEDS: SOD HYPOCHLORITE 1/4 STRENGTH 473 ML 1 APPLIC TOPICAL ×2 (08:19→20:34)
[2020-11-06] MEDS: MINERAL OIL/WHITE PETROLATUM OINTMENT 1 APPLIC EACH EYE ×2 (08:19→20:33)
[2020-11-06 08:41] LABS: Glucose Point of Care 134 mg/dl (65-105)
--- NOTE | 2020-11-06 09:00 | PM.IMPN ---
Progress Note: A&P Assessment and Plan (1) Cardiac arrest: Code(s): I46.9 - Cardiac arrest, cause unspecified Status: Acute Assessment and Plan: Although etiology is not fully clear it is likely secondary to aspiration pneumonia. Patient was found unresponsive on CPAP in his room. Duration of down time unknown. Possibly hypercarbic but ABG done once he was intubated showed only mild hypercarbia; PE less likely given negative Dopplers 2 days before and that he is on anticoagulation up until 1 day before the event. Trop negative x4 making PE and an acute cardiac event less likely. EKG shows sinus rhythm without ischemic changes. Echo EF 68% and Grade II diastolic dysfunction and no wall motion abnormalities. Head CT 11/01 was negative for acute changes. Tolerated the hypothermia protocol. Now off hypothermia protocol and off sedation since 11/03 AM. Not responsive off sedation. Repeat CT brain 11/04 showing no acute findings. No meaningful cognitive improvement at this time. Discussed with journal box inspector. Amandeep deleon full code. (2) Acute respiratory failure: Code(s): J96.00 - Acute respiratory failure, unspecified whether with hypoxia or hypercapnia Status: Acute Assessment and Plan: Patient has chronic respiratory failure at baseline. Acute respiratory failure secondary to cardiac arrest, aspiration pneumonia and pulmonary edema. CT chest 11/04 showing atelectasis, small pleural effusion and small volume of ascites. CXR today showing improvement. Continue abx, nebs. (3) Aspiration pneumonia: Code(s): J69.0 - Pneumonitis due to inhalation of food and vomit Status: Acute Assessment and Plan: As above. CXR today reviewed showing improved bilateral airspace disease which may represent pneumonia or edema. Patient is on Zosyn. (4) Anoxic brain injury: Code(s): G93.1 - Anoxic brain damage, not elsewhere classified Status: Acute Assessment and Plan: Patient appears to be encephalopathic post code. Off sedation since 11/[address] brain 11/01 showing no acute process. Repeat CT brain 11/04 showing no acute findings. He does not appear to have significant improvement in his mental status despite other provider's input. May need transfer for a complete neuro evaluation since no neuro available here. Discussed with journal box inspector. (5) Diabetic foot infection: Code(s): E11.628 - Type 2 diabetes mellitus with other skin complications; L08.9 - Local infection of the skin and subcutaneous tissue, unspecified Status: Acute Assessment and Plan: Presents with foul smelling left foot wound. BCx (2of2) positive felt from the foot wound. ROSA showed no significant arterial occlusive disease. Patient underwent excisional debridement of gangrenous left heel ulcer 10/31/20. ID following and abx adjusted. Continue current wound care. (6) Bacteremia: Code(s): R78.81 - Bacteremia Status: Acute Assessment and Plan: BCx (2of2) on 10/28 positive for Proteus Mirabilis and Morganella morganii both sensitive to Zosyn. Related to the foot infection. ID following and appreciate their input. Continue Zosyn. (7) Acute hyperkalemia: Code(s): E87.5 - Hyperkalemia Status: Acute Assessment and Plan: Improved with Kayexalate and Lasix. Stable now. Continue to monitor. (8) Diabetes mellitus with diabetic nephropathy, with long-term current use of insulin: Qualifiers: Diabetes mellitus type: type 2 Qualified Code(s): E11.21 - Type 2 diabetes mellitus with diabetic nephropathy; Z79.4 - termite exterminator helper (current) use of insulin Code(s): E11.21 - Type 2 diabetes mellitus with diabetic nephropathy; Z79.4 - half-way (current) use of insulin Status: Acute Assessment and Plan: A1c 7.5 in August. The patient's blood glucose was reviewed on 11/06 Glucose remains well controlled. Continue AccuCheks covering with sliding scale.
[2020-11-06] MEDS: PANTOPRAZOLE SODIUM IV 40 MG VIAL IV PUSH (11:27)
--- NOTE | 2020-11-06 11:28 | PCDIET ---
ICU Rounding Note: Tube feedings were held for emesis and have since resumed at 10mL/hr (Glucerna 1.2) with plan to gradually advance toward goal of 50mL/hr. Abdomen soft, per RN. Last recorded weight is 167.6kg which is down from last review. Bowel Motility: BM x 1 today. Labs Reviewed: WBC (12.9), RBC (3.33), Hgb (9.3), Hct (32.2), Glu (143), BUN (53), Cr (2.3), Na (146) Meds Noted: Albuterol, Apresoline, Morphine, Zosyn, Norvasc, Novolog, Reglan, Nifirex-150, Coreg, Lantus, Atrovent Additional Notes: Left heel with dressing. Left fifth toe diabetic ulcer. Following daily in ICU rounds. Assessing/reassessing every Tuesday/Tuesday.
[2020-11-06 11:38] LABS: Glucose Point of Care 129 mg/dl (65-105)
--- NOTE | 2020-11-06 13:27 | WPDINTPN ---
Progress Note: A&P Assessment and Plan (1) Cardiac arrest: Code(s): I46.9 - Cardiac arrest, cause unspecified Status: Acute Assessment and Plan: Currently arrest on 11/01: Etiology unclear, could be secondary to aspiration pneumonia. Patient was found unresponsive on CPAP in his room. Be related to hypercarbia Patient had Dopplers done 2 days ago which were negative for DVT and also was on anticoagulation until day before yesterday making PE unlikely etiology. Patient also was anemic and anticoagulation had to be stopped because of the surgery. Patient also is in acute kidney injury precluding CTA. Patient also morbidly obese and does not fit in our CT scanner -Echocardiogram reviewed EKG shows sinus rhythm Head CT was negative for acute change Serial troponin were negative conveyor monitor (2) Acute respiratory failure: Code(s): J96.00 - Acute respiratory failure, unspecified whether with hypoxia or hypercapnia Status: Acute Assessment and Plan: Secondary to cardiac arrest and aspiration pneumonia. also has pulmonary edema Ventilator settings reviewed. decrease tidal volume to 420. Peep of 8 and 45% FiO2 Chest x-ray reviewed. -will hold Lasix as creatinine is increasing Patient has chronic respiratory failure with severe lungs sick to disease with total lung capacity only 66% (3) Aspiration pneumonia: Code(s): J69.0 - Pneumonitis due to inhalation of food and vomit Status: Acute Assessment and Plan: Sputum and blood cultures. Patient is on Zosyn (4) Anoxic brain injury: Code(s): G93.1 - Anoxic brain damage, not elsewhere classified Status: Acute Assessment and Plan: Patient appears to be encephalopathic post code patient has completed TTM protocol for 24hrs -sedation has been on hold since 11/03. -patient tries to open his eyes but does not blink to threat, positive pupillary, corneal, gag, cough reflex. Patient also has spontaneous breathing on pressure support ventilation -no seizure activity noted -patient requires EEG, neurology evaluation and MRI to assess neurologic/brain function. -11/06: called and placed patient on a waiting list at [facility] in [facility] (5) Diabetic foot infection: Code(s): E11.628 - Type 2 diabetes mellitus with other skin complications; L08.9 - Local infection of the skin and subcutaneous tissue, unspecified Status: Acute Assessment and Plan: x-ray of the foot showed no osteomyelitis. status post debridement ROSA showed no significant arterial occlusive disease vancomycin d/c'd per ID BC-->+Proteus Mirabilis and Morganella morganii ID following, recommendations appreciated Surgery following, recommendations appreciated Continue Zosyn -continue wound care recommendations (6) Acute hyperkalemia: Code(s): E87.5 - Hyperkalemia Status: Acute Assessment and Plan: improved with Kayexalate and Lasix monitor (7) Diabetes mellitus with diabetic nephropathy, with long-term current use of insulin: Qualifiers: Diabetes mellitus type: type 2 Qualified Code(s): E11.21 - Type 2 diabetes mellitus with diabetic nephropathy; Z79.4 - halfway (current) use of insulin Code(s): E11.21 - Type 2 diabetes mellitus with diabetic nephropathy; Z79.4 - intermediate project manager (current) use of insulin Status: Acute Assessment and Plan: Currently on sliding scale insulin. continue Lantus Last A1C 7.5 08/2020 Monitor (8) Obesity hypoventilation syndrome: Code(s): E66.2 - Morbid (severe) obesity with alveolar hypoventilation Status: Acute Assessment and Plan: With PFTs demonstrating severe restrictive ventilatory defect (9) Diastolic HF (heart failure): Code(s): I50.30 - Unspecified diastolic (congestive) heart failure Status: Acute Assessment and Plan: Patient has diastolic dysfunction
[2020-11-06 15:38] LABS: Glucose Point of Care 136 mg/dl (65-105)
[2020-11-06 20:27] LABS: Glucose Point of Care 128 mg/dl (65-105)
[2020-11-06] MEDS: INSULIN GLARGINE (*BKC) 100 UNITS/ML 12 UNITS SUB-Q (20:33)
[2020-11-07] VITALS (33 sets, daily range): BP systolic 152–174; BP diastolic 61–88; PULSE 74–93; RESP 13–23; TEMP 36.6–36.9; O2SAT 92–97
[2020-11-07] MEDS: METOCLOPRAMIDE HCL 10 MG/10 ML SOLN UDC PO (00:17)
[2020-11-07 00:28] LABS: Glucose Point of Care 128 mg/dl (65-105)
[2020-11-07] MEDS: ALBUTEROL SULFATE NEB 2.5 MG/0.5 ML INH INHALATION ×4 (02:06→21:35)
[2020-11-07] MEDS: IPRATROPIUM BR 0.02% INH SOLN 0.5 MG/2.5 ML VIAL INHALATION ×4 (02:06→21:35)
[2020-11-07] MEDS: ONDANSETRON INJ 4 MG/2 ML VIAL IV PUSH (03:41)
[2020-11-07 03:49] LABS: Basophils Absolute Auto 0.1 K/mm3 (0.0-0.1); Basophils Percent Auto 0.6 % (0.2-1.2); Eosinophils Absolute Auto 0.6 K/mm3 (0-0.3); Eosinophils Percent Auto 5.5 % (0-4.4); Immature Granulocyte Absolute 0.33 K/mm3 (0.00-0.031); Immature Granulocyte Percent A 3.2 % (0-0.5); Lymphocytes Absolute Auto 1.63 K/mm3 (0.9-3.2); Lymphocytes Percent Auto 15.8 % (18.3-44.2); Mean Corpuscular HGB Conc 28.1 g/dl (32-36); Mean Corpuscular Hemoglobin 26.9 pg (26-34); Mean Corpuscular Volume 95.5 fl (80-100); Mean Platelet Volume 10.5 fl (7.4-10.4); Monocytes Absolute Auto 0.8 K/mm3 (0.1-0.6); Monocytes Percent Auto 8.1 % (2.6-8.5); Neutrophils Absolute Auto 6.9 K/mm3 (1.3-6.7); Neutrophils Percent Auto 66.8 % (45.5-73.1); Platelet Count Result 260 k/mm3 (150-375); Red Blood Count 3.35 M/mm3 (4.6-6.20); Red Cell Distribution Width 16.4 % (11.5-14.5); White Blood Count 10.3 K/mm3 (4.5-10.0)
[2020-11-07 04:01] LABS: Partial Thromboplastin Time 96.8 SECONDS (22.3-36.8)
[2020-11-07 04:18] LABS: Anion Gap 4 mmol/L (8-16); Blood Urea Nitrogen 45 mg/dL (9-20); Calcium 8.7 mg/dL (8.4-10.2); Carbon Dioxide 36 mmol/L (22-30); Chloride 105 mmol/L (98-107); Estimated CRCL calculation 62 ml/min; Estimated Glomerular Filt Rate 34; Glucose 146 mg/dL (65-110); Potassium 3.8 mmol/L (3.4-5.0); Sodium 145 mmol/L (137-145)
[2020-11-07 04:19] LABS: Alanine Aminotransferase 329 U/L (4-50); Albumin Level 3.6 g/dL (3.5-5.1); Alkaline Phosphatase 117 U/L (38-126); Aspartate Amino Transferase 96 U/L (17-59); Hypochromasia 1+ (NORMAL); Platelet Estimate Adequate (Adequate)
[2020-11-07 04:32] LABS: Base Excess ABG 10.9 mEq/l (+/-2.0); Carboxyhemoglobin 0.3 % THb (0-2.0); Fractional Inspired Oxygen 30 %; HCO3 ABG 37.4 mEq/l (22.0-26.0); Methemoglobin ABG 0.5 %THb (0-1.5); Oxygen Content ABG 14.6 %vol (16.0-22.0); Oxygen Saturation ABG 96.7 % (95.0-100.0); Oxyhemoglobin 95.5 % THb (90.0-100.0); PO2 ABG 89.9 mmHg (80.0-100.0); Reduced Hemoglobin 3.7 %THb (0-5.0); Total Hemoglobin 10.8 g/dL (12.0-18.0)
[2020-11-07 04:33] LABS: Arterial Blood Gas PEEP 8 cmH2O; Arterial Blood Gas Vent Mode ASSIST CONTROL; Arterial Blood Gas Ventilator rate 20 /MIN; Device VENTILATOR; Modified Allen's Test Pass; PCO2 ABG 60.4 mmHg (35.0-45.0); Site Drawn LEFT RADIAL
[2020-11-07 04:34] LABS: Arterial Blood Gas Tidal Volume 420 ml
[2020-11-07] MEDS: hydrALAZINE HCL 20 MG/ML VIAL IV PUSH ×2 (04:57→17:37)
[2020-11-07] MEDS: HEPARIN SOD/D5W 100 UNITS/ML 25,000 UNITS/250 ML BAG 28 UNITS IV CONT ×2 (04:58→17:35)
[2020-11-07] MEDS: CENTRAL LINE FLUSH 10 ML IV PUSH ×3 (04:59→21:16)
[2020-11-07 07:17] LABS: Bilirubin,Total 0.9 mg/dL (0.2-1.3); Magnesium 2.1 mg/dL (1.6-2.3); Phosphorus 4.3 mg/dL (2.5-4.5)
[2020-11-07 08:06] LABS: Glucose Point of Care 129 mg/dl (65-105)
[2020-11-07 08:59] LABS: Ammonia < 9 umol/L (9-30)
[2020-11-07] MEDS: hydrALAZINE HCL 25 MG TABLET PO ×4 (09:33→20:43)
[2020-11-07] MEDS: amLODIPine BESYLATE 5 MG TABLET 10 MG PO (09:34)
[2020-11-07] MEDS: POLYSACCHARIDE IRON COMPLEX 150 MG CAPSULE FEED TUBE (09:34)
[2020-11-07] MEDS: carvediloL 3.125 MG TABLET PO ×2 (09:34→20:43)
[2020-11-07] MEDS: MICONAZOLE NITRATE 2% CREAM 30 GM TUBE 1 APPLIC TOPICAL ×2 (09:35→20:43)
[2020-11-07] MEDS: EUCERIN CREAM 120 GM JAR 1 APPLIC TOPICAL ×2 (09:35→17:37)
[2020-11-07] MEDS: SOD HYPOCHLORITE 1/4 STRENGTH 473 ML 1 APPLIC TOPICAL ×2 (09:35→20:43)
[2020-11-07] MEDS: MINERAL OIL/WHITE PETROLATUM OINTMENT 1 APPLIC EACH EYE ×2 (09:35→20:43)
[2020-11-07] MEDS: PANTOPRAZOLE SODIUM IV 40 MG VIAL IV PUSH (09:35)
--- NOTE | 2020-11-07 11:23 | PCDIET ---
Nutrition Follow-Up Complete: Nutrition Diagnosis: Inadequate oral intake related to oral intubation as evidenced by need for enteral feedings. Nutrition Goal: Patient to meet estimated nutritional needs. Goal not met. Tube feedings on hold for emesis. NG to suction. MD changed Reglan to IV form. Once NG output improves, recommend resuming tube feedings. Would consider advancing small bowel feeding tube to jejunem past Ligament of Treitz. If intolerance continues, will need to consider parenteral nutrition. Last recorded weight is 164 kg which is down from last review. -I/O. Bowel Motility: Last documented BM on 11/06/20 x 1. Labs Reviewed: WBC (10.3), RBC (3.35), Hgb (9.0), Hct (32.0), Glu (129), BUN (45), Cr (2.1) Meds Noted: Reglan, Albuterol, Norvasc, Atrovent, Nifirex-150, Coreg, Normodyne, Hydralazine, Lantus, Protonix, Zosyn Additional Notes: No change in skin reported. Diabetic ulcer to left fifth toe. Left heel wound s/p debridement. Will continue to monitor with same goal. Nutrition Monitoring and Evaluation: Follow up every Tuesday/Tuesday.
--- NOTE | 2020-11-07 11:44 | PM.CNNEP ---
Assessment and Plan Assessment and plan (1) Polyuria: Code(s): R35.8 - Other polyuria Status: Acute Assessment and Plan: the patient has polyuria. Etiologies include: Central diabetes insipidus. This could occur her with anoxic brain injury as suggested by Dr. Calderon. Usually the urine output would be higher. Incomplete central DI could do this as well. Will check TSH, prolactin, and FSH. The urine osmolality has already been ordered. Nephrogenic diabetes insipidus can do this with this volume as well. However he is not on any medications that would do this. Osmotic diuresis could do this as well however he does not have any issues that would Cause this. His intake is less than his output. This rules out psychogenic polydipsia of course. Will see what the urine osmolality show. I will check a urinalysis as well to be sure there is not a lot of sugar in there. Will check ADH,FSH, TSH, and prolactin. I agree with extra free water intake. Orally is okay for now as long as the sodium does not rise. DDAVP is always a possibility as well. (2) Acute on chronic renal failure: Code(s): N17.9 - Acute kidney failure, unspecified; N18.9 - Chronic kidney disease, unspecified Status: Acute Assessment and Plan: His baseline creatinine seems to range from 1.4 to 1.7. but has been above 6 when ill. Now the patient's creatinine is in the high 2s. This is most likely related to his infection at 1st and now with the arrest. Will keep an eye on this. (3) Anoxic brain injury: Code(s): G93.1 - Anoxic brain damage, not elsewhere classified Status: Acute Assessment and Plan: The patient is Not responsive. (4) Acute respiratory failure: Code(s): J96.00 - Acute respiratory failure, unspecified whether with hypoxia or hypercapnia Status: Acute Assessment and Plan: The patient is on the ventilator and getting supportive care (5) Cardiac arrest: Code(s): I46.9 - Cardiac arrest, cause unspecified Status: Acute (6) Bacteremia: Code(s): R78.81 - Bacteremia Status: Acute Assessment and Plan: the patient is on antibiotics History of Present Illness Reason for Consult Consult date: 11/07/20 Chief Complaint Chief complaint: Diabetic foot infection, SHAKIRA History of Present Illness Narrative: Ulices is an unfortunate 50-year-old gentleman who has multiple medical problems including morbid obesity, hypertension, diabetes, asthma, DVT in both legs, chronic kidney disease stage 3 with a baseline creatinine between 1.7 and 2.4, COPD, chronic respiratory disease, hypertension, sleep apnea, anemia, congestive heart failure. The patient came in the hospital because of a foot wound. It also had a foul order. He was evaluated in the emergency room and admitted. Was placed on antibiotics. The patient was bacteremic. Infectious Disease was consulted and he was antibiotics were adjusted. Patient had a cardiorespiratory arrest and the patient had CPR and ACLS and was transferred to the ICU. Since then the patient has been making a lot of urine. About 4L per day. His sodium level started out on the low side but have gradually risen and then was above normal yesterday so the patient was given extra tube feeding flushes and the Sodium is at the upper limit of normal today. There is a question of whether he might have diabetes insipidus so renal consultation was requested. The patient cannot give a history. His sugars have been well controlled. He is not on TPN. He is not getting mannitol. His BUN is not very high. He is not on diuretics. His intake has been consistently lower than his output. His blood pressure has been mildly to moderately high for the last few days. The patient cannot give a history Review of Systems Review of Systems: ROS unobtainable: Yes unobtainable due to medica
[2020-11-07 12:25] LABS: Glucose Point of Care 111 mg/dl (65-105)
[2020-11-07 12:58] LABS: Add Urine Microscopic? YES; Appearance Urine Clear (Clear); Bilirubin Urine Negative (Negative); Blood Urine Negative (Negative); Color Urine Yellow (Yellow); Glucose Urine UA Negative (Negative); Ketones Urine Negative (Negative); Leukocyte Esterase Ur Negative LEU/UL (NEGATIVE); Nitrate Urine Negative (Negative); Protein Urine 3+ mg/dL (Negative); RBC Urine 0-2 /hpf (0-2); Specific Grav Ur 1.012 (1.001-1.035); Urobilinogen Urine Negative mg/dL (<2.0); WBC Urine 0-3 /hpf (0-3)
[2020-11-07] MEDS: METOCLOPRAMIDE HCL INJ 10 MG/2 ML VIAL IV PUSH ×2 (12:58→17:39)
--- NOTE | 2020-11-07 13:31 | WPDINTPN ---
Progress Note: A&P Assessment and Plan (1) Cardiac arrest: Code(s): I46.9 - Cardiac arrest, cause unspecified Status: Acute Assessment and Plan: Currently arrest on 11/01: Etiology unclear, could be secondary to aspiration pneumonia. Patient was found unresponsive on CPAP in his room. Be related to hypercarbia Patient had Dopplers done 2 days ago which were negative for DVT and also was on anticoagulation until day before yesterday making PE unlikely etiology. Patient also was anemic and anticoagulation had to be stopped because of the surgery. Patient also is in acute kidney injury precluding CTA. Patient also morbidly obese and does not fit in our CT scanner -Echocardiogram reviewed EKG shows sinus rhythm Head CT was negative for acute change Serial troponin were negative alarm security or surveillance monitor (2) Acute respiratory failure: Code(s): J96.00 - Acute respiratory failure, unspecified whether with hypoxia or hypercapnia Status: Acute Assessment and Plan: Secondary to cardiac arrest and aspiration pneumonia. also has pulmonary edema Ventilator settings reviewed. decrease tidal volume to 420. Peep of 8 and 45% FiO2 Chest x-ray reviewed. -ABG showed hypercarbia, ventilator adjusted -patient is having or to diuresis, could be related to diabetes insipidus, will hold diuretics at this time Patient has chronic respiratory failure with severe lungs sick to disease with total lung capacity only 66% (3) Aspiration pneumonia: Code(s): J69.0 - Pneumonitis due to inhalation of food and vomit Status: Acute Assessment and Plan: Sputum and blood cultures. Patient is on Zosyn (4) Anoxic brain injury: Code(s): G93.1 - Anoxic brain damage, not elsewhere classified Status: Acute Assessment and Plan: Patient appears to be encephalopathic post code patient has completed TTM protocol for 24hrs -sedation has been on hold since 11/03. -patient tries to open his eyes but does not blink to threat, positive pupillary, corneal, gag, cough reflex. Patient also has spontaneous breathing on pressure support ventilation -no seizure activity noted -patient requires EEG, neurology evaluation and MRI to assess neurologic/brain function. -11/06: called and placed patient on a waiting list at [facility] and [facility] in [facility]. -[facility] in [facility] was not placing patient is on waiting list, -[facility] and [facility] in [facility], were not entertaining any patients at this time (5) Diabetic foot infection: Code(s): E11.628 - Type 2 diabetes mellitus with other skin complications; L08.9 - Local infection of the skin and subcutaneous tissue, unspecified Status: Acute Assessment and Plan: x-ray of the foot showed no osteomyelitis. status post debridement ROSA showed no significant arterial occlusive disease vancomycin d/c'd per ID BC-->+Proteus Mirabilis and Morganella morganii ID following, recommendations appreciated Surgery following, recommendations appreciated Continue Zosyn -continue wound care recommendations (6) Acute hyperkalemia: Code(s): E87.5 - Hyperkalemia Status: Acute Assessment and Plan: improved with Kayexalate and Lasix monitor (7) Diabetes mellitus with diabetic nephropathy, with long-term current use of insulin: Qualifiers: Diabetes mellitus type: type 2 Qualified Code(s): E11.21 - Type 2 diabetes mellitus with diabetic nephropathy; Z79.4 - [facility] (current) use of insulin Code(s): E11.21 - Type 2 diabetes mellitus with diabetic nephropathy; Z79.4 - moth exterminator (current) use of insulin Status: Acute Assessment and Plan: Currently on sliding scale insulin. continue Lantus Last A1C 7.5 08/2020 Monitor (8) Obesity hypoventilation syndrome: Code(s): E66.2 - Morbid (severe) obesity with alveolar hypoventilation
[2020-11-07 13:34] LABS: Creatinine Urine 37.1 mg/dL
[2020-11-07 13:39] LABS: Sodium Urine Random 124 meq/L
[2020-11-07 14:02] LABS: Potassium Urine Random 12.6 meq/L
[2020-11-07 14:35] LABS: Total Protein Urine Random 308 mg/dL
[2020-11-07] MEDS: TOLNAFTATE 1% POWDER 45 GM BTL 1 APPLIC TOPICAL (17:36)
[2020-11-07 18:00] LABS: Glucose Point of Care 111 mg/dl (65-105)
[2020-11-07] MEDS: INSULIN GLARGINE (*BKC) 100 UNITS/ML 12 UNITS SUB-Q (20:43)
[2020-11-07] MEDS: LABETALOL HCL INJ 100 MG/20 ML VIAL 20 MG IV PUSH (23:00)
[2020-11-08] VITALS (24 sets, daily range): BP systolic 156–183; BP diastolic 69–96; PULSE 73–95; RESP 19–26; TEMP 36.6–37; O2SAT 93–97
[2020-11-08] MEDS: METOCLOPRAMIDE HCL INJ 10 MG/2 ML VIAL IV PUSH ×4 (00:36→18:11)
[2020-11-08] MEDS: MORPHINE SULFATE (*CRX) 2 MG/ML INJ IV PUSH (00:39)
[2020-11-08 00:58] LABS: Glucose Point of Care 131 mg/dl (65-105)
[2020-11-08] MEDS: HEPARIN SOD/D5W 100 UNITS/ML 25,000 UNITS/250 ML BAG 28 UNITS IV CONT ×3 (03:02→22:11)
[2020-11-08] MEDS: hydrALAZINE HCL 20 MG/ML VIAL IV PUSH ×3 (03:03→18:13)
[2020-11-08] MEDS: CENTRAL LINE FLUSH 10 ML IV PUSH ×3 (05:20→22:26)
[2020-11-08] MEDS: LABETALOL HCL INJ 100 MG/20 ML VIAL 20 MG IV PUSH (05:21)
[2020-11-08 05:27] LABS: Basophils Absolute Auto 0.1 K/mm3 (0.0-0.1); Basophils Percent Auto 0.5 % (0.2-1.2); Eosinophils Absolute Auto 0.8 K/mm3 (0-0.3); Eosinophils Percent Auto 7.2 % (0-4.4); Hematocrit 32.6 % (42.0-52.0); Hemoglobin 9.3 g/dL (14.0-18.0); Immature Granulocyte Absolute 0.27 K/mm3 (0.00-0.031); Immature Granulocyte Percent A 2.6 % (0-0.5); Lymphocytes Absolute Auto 2.04 K/mm3 (0.9-3.2); Lymphocytes Percent Auto 19.7 % (18.3-44.2); Mean Corpuscular HGB Conc 28.5 g/dl (32-36); Mean Corpuscular Volume 94.8 fl (80-100); Mean Platelet Volume 10.7 fl (7.4-10.4); Monocytes Absolute Auto 0.8 K/mm3 (0.1-0.6); Monocytes Percent Auto 8.1 % (2.6-8.5); Neutrophils Absolute Auto 6.4 K/mm3 (1.3-6.7); Neutrophils Percent Auto 61.9 % (45.5-73.1); Platelet Count Result 276 k/mm3 (150-375); Red Blood Count 3.44 M/mm3 (4.6-6.20); Red Cell Distribution Width 16.2 % (11.5-14.5); White Blood Count 10.4 K/mm3 (4.5-10.0)
[2020-11-08 05:43] LABS: Alanine Aminotransferase 290 U/L (4-50); Albumin Level 3.7 g/dL (3.5-5.1); Alkaline Phosphatase 121 U/L (38-126); Anion Gap 5 mmol/L (8-16); Aspartate Amino Transferase 151 U/L (17-59); Bilirubin,Total 0.8 mg/dL (0.2-1.3); Blood Urea Nitrogen 37 mg/dL (9-20); Calcium 8.9 mg/dL (8.4-10.2); Carbon Dioxide 35 mmol/L (22-30); Chloride 102 mmol/L (98-107); Estimated CRCL calculation 62 ml/min; Estimated Glomerular Filt Rate 34; Glucose 120 mg/dL (65-110); Magnesium 1.9 mg/dL (1.6-2.3); Phosphorus 3.3 mg/dL (2.5-4.5); Potassium 3.7 mmol/L (3.4-5.0); Sodium 142 mmol/L (137-145)
[2020-11-08] MEDS: POLYSACCHARIDE IRON COMPLEX 150 MG CAPSULE FEED TUBE (07:33)
[2020-11-08] MEDS: carvediloL 3.125 MG TABLET PO (07:33)
[2020-11-08] MEDS: amLODIPine BESYLATE 5 MG TABLET 10 MG PO (07:33)
[2020-11-08] MEDS: hydrALAZINE HCL 25 MG TABLET PO ×2 (07:34→12:28)
[2020-11-08] MEDS: MICONAZOLE NITRATE 2% CREAM 30 GM TUBE 1 APPLIC TOPICAL ×2 (07:34→22:25)
[2020-11-08] MEDS: MINERAL OIL/WHITE PETROLATUM OINTMENT 1 APPLIC EACH EYE ×2 (07:34→22:25)
[2020-11-08] MEDS: SOD HYPOCHLORITE 1/4 STRENGTH 473 ML 1 APPLIC TOPICAL ×2 (07:35→22:25)
[2020-11-08] MEDS: EUCERIN CREAM 120 GM JAR 1 APPLIC TOPICAL ×2 (07:35→16:28)
[2020-11-08] MEDS: PANTOPRAZOLE SODIUM IV 40 MG VIAL IV PUSH (07:35)
[2020-11-08] MEDS: TOLNAFTATE 1% POWDER 45 GM BTL 1 APPLIC TOPICAL ×2 (07:36→22:26)
[2020-11-08 07:51] LABS: Hypochromasia 1+ (NORMAL); Platelet Estimate Adequate (Adequate)
[2020-11-08 08:10] LABS: Partial Thromboplastin Time 84.6 SECONDS (22.3-36.8)
[2020-11-08] MEDS: IPRATROPIUM BR 0.02% INH SOLN 0.5 MG/2.5 ML VIAL INHALATION ×3 (08:38→21:18)
[2020-11-08] MEDS: ALBUTEROL SULFATE NEB 2.5 MG/0.5 ML INH INHALATION ×3 (08:38→21:18)
[2020-11-08 09:22] LABS: Alveolar/Arterial O2 Gradient 56.5 mmHg; Base Excess ABG 6.7 mEq/l (+/-2.0); Fractional Inspired Oxygen 35 %; HCO3 ABG 29.9 mEq/l (22.0-26.0); Oxygen Content ABG 15.3 %vol (16.0-22.0); Oxygen Saturation ABG 99.1 % (95.0-100.0); Oxyhemoglobin 97.8 % THb (90.0-100.0); PCO2 ABG 37.4 mmHg (35.0-45.0); PO2 ABG 149.6 mmHg (80.0-100.0); PO2 FiO2 Ratio Arterial Blood 4.27 %; Total Hemoglobin 10.9 g/dL (12.0-18.0)
[2020-11-08 09:24] LABS: Device VENTILATOR; Modified Allen's Test Pass; Site Drawn LEFT RADIAL
[2020-11-08 09:25] LABS: Arterial Blood Gas Vent Mode CMV; Arterial Blood Gas Ventilator rate 22 /MIN
[2020-11-08 09:26] LABS: Arterial Blood Gas PEEP 8 cmH2O; Arterial Blood Gas Tidal Volume 500 ml
--- NOTE | 2020-11-08 10:40 | PM.PNNEP ---
Progress Note: A&P Assessment and Plan (1) Polyuria: Code(s): R35.8 - Other polyuria Status: Acute Assessment and Plan: the patient has polyuria. Etiologies include: Central diabetes insipidus. This could occur her with anoxic brain injury as suggested by Dr. Calderon. Usually the urine output would be higher. Incomplete central DI could do this as well. TSH, prolactin, and FSH, and The urine osmolality is pending Nephrogenic diabetes insipidus can do this with this volume as well. However he is not on any medications that would do this. Osmotic diuresis could do this as well however he does not have any issues that would cause this. His intake is less than his output. This rules out psychogenic polydipsia of course. the sodium level came down to 142 with tube feeding flushes. However his intake is still much less than his output. So it sounds like his urine output is more balanced. His urine electrolytes did show a relatively high urine sodium. This speaks against DI but more in favor of an osmotic diuresis. Perhaps his blood pressure is doing some of this. Will try to get his blood pressure down some. discussed with Dr. Jason peters (2) Acute on chronic renal failure: Code(s): N17.9 - Acute kidney failure, unspecified; N18.9 - Chronic kidney disease, unspecified Status: Acute Assessment and Plan: His baseline creatinine seems to range from 1.4 to 1.7. but has been above 6 when ill. Now the patient's creatinine is in the high 2s. Urine electrolytes are non pre renal UA is bland he does have a high protein content in the urine. This is most likely related to his infection at 1st and now with the arrest. The creatinine is on its way down. Fluid this will continue to recover (3) Anoxic brain injury: Code(s): G93.1 - Anoxic brain damage, not elsewhere classified Status: Acute Assessment and Plan: The patient is not responsive. (4) Acute respiratory failure: Code(s): J96.00 - Acute respiratory failure, unspecified whether with hypoxia or hypercapnia Status: Acute Assessment and Plan: The patient is on the ventilator and getting supportive care (5) Cardiac arrest: Code(s): I46.9 - Cardiac arrest, cause unspecified Status: Acute (6) Bacteremia: Code(s): R78.81 - Bacteremia Status: Acute Assessment and Plan: the patient is on antibiotics Subjective Date/time seen: 11/08/20 10:40 Interval history: patient is on the ventilator. Sedated. Exam Narrative: WDWN in NAD skin no rash or subcu nodules head ncat lungs Coarse bilaterally cor reg no rub abd BS+ nontender and soft ext 1+ edema. Objective Data Vital Signs Vital Signs: Vital Signs - 24 hr 11/07/20 10:55 11/07/20 12:00 11/07/20 12:10 Temperature 36.8 C Pulse Rate 80 85 Respiratory Rate 22 H Blood Pressure 173/81 H Pulse Oximetry 92 96 11/07/20 13:03 11/07/20 14:00 11/07/20 14:49 Temperature 36.8 C Pulse Rate 86 76 81 Respiratory Rate 22 H 23 H Blood Pressure 167/77 H Pulse Oximetry 95 96 11/07/20 14:57 11/07/20 15:11 11/07/20 16:00 Temperature 36.9 C Pulse Rate 80 81 85 Respiratory Rate 23 H 20 Blood Pressure 173/76 H Pulse Oximetry 95 95 11/07/20 17:21 11/07/20 18:00 11/07/20 20:00 Temperature 36.9 C 36.9 C Pulse Rate 81 84 79 Respiratory Rate 20 22 H Blood Pressure 171/88 H 173/75 H Pulse Oximetry 94 95 96 11/07/20 20:43 11/07/20 21:35 11/07/20 22:00 Temperature 36.8 C Pulse Rate 80 80 86 Respiratory Rate 22 H Blood Pressure 174/79 H Pulse Oximetry 93 93 11/07/20 23:00 11/08/20 00:00 11/08/20 01:49 Temperature 36.9 C Pulse Rate 74 73 81 Respiratory Rate 22 H Blood Pressure 168/77 H Pulse Oximetry 96 95 11/08/20 02:00 11/08/20 03:00 11/08/20 04:00 Temperature 36.8 C 36.9 C 36.9 C Pulse Rate 74 74 76 Respira
[2020-11-08 10:52] LABS: pH ABG 7.521 (7.350-7.450)
[2020-11-08 11:45] LABS: Glucose Point of Care 124 mg/dl (65-105)
--- NOTE | 2020-11-08 12:54 | WPDINTPN ---
Progress Note: A&P Assessment and Plan (1) Polyuria: Code(s): R35.8 - Other polyuria Status: Acute Assessment and Plan: Could be related to central DI secondary to hypoxic brain injury -serum and urine osmolality has been obtained and pending -urine lytes showed diluted urine but elevated sodium levels which does not coincide with diabetes insipidus -appreciate Nephrology evaluation and recommendations -patient was slightly hyponatremic but that has been under control with increasing free water flushes through the feeding tube (2) Cardiac arrest: Code(s): I46.9 - Cardiac arrest, cause unspecified Status: Acute Assessment and Plan: Currently arrest on 11/01: Etiology unclear, could be secondary to aspiration pneumonia. Patient was found unresponsive on CPAP in his room. Be related to hypercarbia Patient had Dopplers done 2 days ago which were negative for DVT and also was on anticoagulation until day before yesterday making PE unlikely etiology. Patient also was anemic and anticoagulation had to be stopped because of the surgery. Patient also is in acute kidney injury precluding CTA. Patient also morbidly obese and does not fit in our CT scanner -Echocardiogram reviewed EKG shows sinus rhythm Head CT was negative for acute change Serial troponin were negative library monitor Patient opening his eyes, withdraws to pain, has brainstem reflexes (3) Acute respiratory failure: Code(s): J96.00 - Acute respiratory failure, unspecified whether with hypoxia or hypercapnia Status: Acute Assessment and Plan: Secondary to cardiac arrest and aspiration pneumonia. also has pulmonary edema Ventilator settings reviewed. decrease tidal volume to 420. Peep of 8 and 45% FiO2 ABGs and chest x-rays reviewed, ventilator adjusted Patient auto diuresing Patient has chronic respiratory failure with severe lungs sick to disease with total lung capacity only 66% (4) Aspiration pneumonia: Code(s): J69.0 - Pneumonitis due to inhalation of food and vomit Status: Acute Assessment and Plan: Sputum and blood cultures. Patient is on Zosyn (5) Anoxic brain injury: Code(s): G93.1 - Anoxic brain damage, not elsewhere classified Status: Acute Assessment and Plan: Patient appears to be encephalopathic post code patient has completed TTM protocol for 24hrs -sedation has been on hold since 11/03. -patient tries to open his eyes but does not blink to threat, positive pupillary, corneal, gag, cough reflex. Patient also has spontaneous breathing on pressure support ventilation -no seizure activity noted -patient requires EEG, neurology evaluation and MRI to assess neurologic/brain function. -11/06: called and placed patient on a waiting list at [facility] and [facility] in [facility]. -[facility] in [facility] was not placing patient is on waiting list, -[facility] and [facility] in [facility], were not entertaining any patients at this time (6) Diabetic foot infection: Code(s): E11.628 - Type 2 diabetes mellitus with other skin complications; L08.9 - Local infection of the skin and subcutaneous tissue, unspecified Status: Acute Assessment and Plan: x-ray of the foot showed no osteomyelitis. status post debridement ROSA showed no significant arterial occlusive disease vancomycin d/c'd per ID BC-->+Proteus Mirabilis and Morganella morganii ID following, recommendations appreciated Surgery following, recommendations appreciated Continue Zosyn (initiated on 10/30/2020) -continue wound care recommendations (7) Acute hyperkalemia: Code(s): E87.5 - Hyperkalemia Status: Acute Assessment and Plan: improved with Kayexalate and Lasix monitor (8) Diabetes mellitus with diabetic nephropathy, with long-term current use of insulin: Qualifiers: Diabetes mellit
[2020-11-08] MEDS: hydrALAZINE HCL 25 MG TABLET 50 MG PO ×2 (16:30→22:18)
[2020-11-08 18:17] LABS: Glucose Point of Care 123 mg/dl (65-105)
[2020-11-08] MEDS: carvediloL 6.25 MG TABLET PO (22:18)
[2020-11-08] MEDS: INSULIN GLARGINE (*BKC) 100 UNITS/ML 12 UNITS SUB-Q (22:19)
[2020-11-08 22:25] LABS: Glucose Point of Care 121 mg/dl (65-105)
[2020-11-09] VITALS (26 sets, daily range): BP systolic 158–181; BP diastolic 72–90; PULSE 63–85; RESP 20–24; TEMP 36.6–37; O2SAT 90–96
[2020-11-09 01:22] LABS: Glucose Point of Care 109 mg/dl (65-105)
[2020-11-09] MEDS: METOCLOPRAMIDE HCL INJ 10 MG/2 ML VIAL IV PUSH ×5 (01:23→23:59)
[2020-11-09] MEDS: hydrALAZINE HCL 20 MG/ML VIAL IV PUSH ×2 (01:26→05:41)
[2020-11-09] MEDS: LABETALOL HCL INJ 100 MG/20 ML VIAL 20 MG IV PUSH ×2 (02:46→22:11)
[2020-11-09 05:03] LABS: Basophils Absolute Auto 0.1 K/mm3 (0.0-0.1); Basophils Percent Auto 0.6 % (0.2-1.2); Eosinophils Absolute Auto 0.6 K/mm3 (0-0.3); Eosinophils Percent Auto 6.1 % (0-4.4); Hematocrit 32.9 % (42.0-52.0); Hemoglobin 9.5 g/dL (14.0-18.0); Immature Granulocyte Absolute 0.16 K/mm3 (0.00-0.031); Immature Granulocyte Percent A 1.6 % (0-0.5); Lymphocytes Absolute Auto 1.92 K/mm3 (0.9-3.2); Lymphocytes Percent Auto 18.9 % (18.3-44.2); Mean Corpuscular HGB Conc 28.9 g/dl (32-36); Mean Corpuscular Hemoglobin 27.6 pg (26-34); Mean Corpuscular Volume 95.6 fl (80-100); Mean Platelet Volume 10.7 fl (7.4-10.4); Monocytes Absolute Auto 0.8 K/mm3 (0.1-0.6); Monocytes Percent Auto 8.3 % (2.6-8.5); Neutrophils Absolute Auto 6.5 K/mm3 (1.3-6.7); Neutrophils Percent Auto 64.5 % (45.5-73.1); Platelet Count Result 259 k/mm3 (150-375); Red Blood Count 3.44 M/mm3 (4.6-6.20); Red Cell Distribution Width 16.3 % (11.5-14.5); White Blood Count 10.1 K/mm3 (4.5-10.0)
[2020-11-09 05:14] LABS: Alanine Aminotransferase 307 U/L (4-50); Albumin Level 3.6 g/dL (3.5-5.1); Alkaline Phosphatase 127 U/L (38-126); Anion Gap 6 mmol/L (8-16); Aspartate Amino Transferase 193 U/L (17-59); Bilirubin,Total 0.8 mg/dL (0.2-1.3); Blood Urea Nitrogen 32 mg/dL (9-20); Calcium 8.8 mg/dL (8.4-10.2); Carbon Dioxide 31 mmol/L (22-30); Chloride 103 mmol/L (98-107); Estimated CRCL calculation 72 ml/min; Estimated Glomerular Filt Rate 40; Glucose 111 mg/dL (65-110); Magnesium 1.9 mg/dL (1.6-2.3); Potassium 3.6 mmol/L (3.4-5.0); Sodium 140 mmol/L (137-145)
[2020-11-09 05:15] LABS: Albumin Level 3.6 g/dL (3.5-5.1); Anion Gap 7 mmol/L (8-16); Blood Urea Nitrogen 32 mg/dL (9-20); Calcium 8.7 mg/dL (8.4-10.2); Carbon Dioxide 30 mmol/L (22-30); Chloride 103 mmol/L (98-107); Estimated CRCL calculation 72 ml/min; Estimated Glomerular Filt Rate 40; Glucose 111 mg/dL (65-110); Potassium 3.7 mmol/L (3.4-5.0); Sodium 140 mmol/L (137-145)
[2020-11-09 05:16] LABS: Partial Thromboplastin Time 95.6 SECONDS (22.3-36.8)
[2020-11-09] MEDS: CENTRAL LINE FLUSH 10 ML IV PUSH ×3 (05:41→21:28)
[2020-11-09 05:59] LABS: Alveolar/Arterial O2 Gradient 109.3 mmHg; Base Excess ABG 6.1 mEq/l (+/-2.0); Fractional Inspired Oxygen 35 %; HCO3 ABG 30.7 mEq/l (22.0-26.0); Oxygen Content ABG 5.4 %vol (16.0-22.0); Oxygen Saturation ABG 96.7 % (95.0-100.0); Oxyhemoglobin 94.9 % THb (90.0-100.0); PCO2 ABG 46.7 mmHg (35.0-45.0); PO2 FiO2 Ratio Arterial Blood 2.46 %; pH ABG 7.436 (7.350-7.450)
[2020-11-09 06:02] LABS: Device VENTILATOR; Modified Allen's Test Pass; Site Drawn RIGHT RADIAL; Total Hemoglobin 3.9 g/dL (12.0-18.0)
[2020-11-09 06:03] LABS: Arterial Blood Gas PEEP 5 cmH2O; Arterial Blood Gas Tidal Volume 500 ml; Arterial Blood Gas Vent Mode CMV; Arterial Blood Gas Ventilator rate 20 /MIN
[2020-11-09 06:31] LABS: Anisocytosis 2+ (NORMAL); Atypical Lymphocytes Present; Platelet Estimate Adequate (Adequate)
[2020-11-09 06:32] LABS: Hypochromasia 1+ (NORMAL)
[2020-11-09] MEDS: HEPARIN SOD/D5W 100 UNITS/ML 25,000 UNITS/250 ML BAG 28 UNITS IV CONT (07:19)
[2020-11-09] MEDS: amLODIPine BESYLATE 5 MG TABLET 10 MG PO (08:00)
[2020-11-09] MEDS: MICONAZOLE NITRATE 2% CREAM 30 GM TUBE 1 APPLIC TOPICAL ×2 (08:04→21:26)
[2020-11-09] MEDS: hydrALAZINE HCL 25 MG TABLET 50 MG PO ×4 (08:04→21:26)
[2020-11-09] MEDS: MINERAL OIL/WHITE PETROLATUM OINTMENT 1 APPLIC EACH EYE ×2 (08:06→21:30)
[2020-11-09] MEDS: EUCERIN CREAM 120 GM JAR 1 APPLIC TOPICAL ×2 (08:06→17:19)
[2020-11-09] MEDS: PANTOPRAZOLE SODIUM IV 40 MG VIAL IV PUSH (08:08)
[2020-11-09] MEDS: SOD HYPOCHLORITE 1/4 STRENGTH 473 ML 1 APPLIC TOPICAL ×2 (08:11→21:27)
[2020-11-09] MEDS: TOLNAFTATE 1% POWDER 45 GM BTL 1 APPLIC TOPICAL ×2 (08:11→21:28)
[2020-11-09] MEDS: POLYSACCHARIDE IRON COMPLEX 150 MG CAPSULE FEED TUBE (08:16)
[2020-11-09] MEDS: ALBUTEROL SULFATE NEB 2.5 MG/0.5 ML INH INHALATION ×2 (08:59→20:24)
[2020-11-09] MEDS: IPRATROPIUM BR 0.02% INH SOLN 0.5 MG/2.5 ML VIAL INHALATION ×2 (08:59→20:24)
[2020-11-09] MEDS: carvediloL 12.5 MG TABLET PO ×2 (09:00→21:27)
--- NOTE | 2020-11-09 09:15 | PM.PNNEP ---
Progress Note: A&P Assessment and Plan (1) Polyuria: Code(s): R35.8 - Other polyuria Status: Acute Assessment and Plan: the patient has polyuria. He continues to make lots of urine. Urine osmolality is still pending Sodium level is doing pretty well on his current fluid intake. Etiologies include: Central diabetes insipidus. This could occur her with anoxic brain injury as suggested by Dr. Calderon. Usually the urine output would be higher. Incomplete central DI could do this as well. TSH, prolactin, and FSH, and The urine osmolality is pending Nephrogenic diabetes insipidus can do this with this volume as well. However he is not on any medications that would do this. Osmotic diuresis could do this as well however he does not have any issues that would cause this. (2) Acute on chronic renal failure: Code(s): N17.9 - Acute kidney failure, unspecified; N18.9 - Chronic kidney disease, unspecified Status: Acute Assessment and Plan: His baseline creatinine seems to range from 1.4 to 1.7. but has been above 6 when ill. Urine electrolytes are non pre renal UA is bland he does have a high protein content in the urine. This is most likely related to his infection at 1st and now with the arrest. His creatinine fell to 1.8 today. This is almost baseline (3) Anoxic brain injury: Code(s): G93.1 - Anoxic brain damage, not elsewhere classified Status: Acute Assessment and Plan: The patient is not responsive. (4) Acute respiratory failure: Code(s): J96.00 - Acute respiratory failure, unspecified whether with hypoxia or hypercapnia Status: Acute Assessment and Plan: The patient is on the ventilator and getting supportive care (5) Cardiac arrest: Code(s): I46.9 - Cardiac arrest, cause unspecified Status: Acute (6) Bacteremia: Code(s): R78.81 - Bacteremia Status: Acute Assessment and Plan: the patient is on antibiotics Subjective Date/time seen: 11/09/20 09:15 Interval history: patient is on the ventilator. Sedated. Exam Narrative: WDWN in NAD skin no rash or subcu nodules head ncat lungs Coarse bilaterally cor reg no rub or gallop abd BS+ nontender and soft ext 1+ edema. Objective Data Vital Signs Vital Signs: Vital Signs - 24 hr 11/08/20 10:00 11/08/20 11:38 11/08/20 12:00 Temperature 36.6 C 36.6 C Pulse Rate 77 78 79 Respiratory Rate 19 20 Blood Pressure 175/81 H 168/79 H Pulse Oximetry 93 97 95 11/08/20 14:00 11/08/20 14:56 11/08/20 16:00 Temperature 36.8 C 36.6 C Pulse Rate 83 81 76 Respiratory Rate 20 24 H Blood Pressure 156/81 H 159/69 H Pulse Oximetry 96 96 96 11/08/20 18:00 11/08/20 20:00 11/08/20 20:19 Temperature 36.6 C Pulse Rate 84 91 84 Respiratory Rate 20 20 Blood Pressure 171/96 H 183/88 H Pulse Oximetry 95 96 96 11/08/20 21:13 11/08/20 21:35 11/08/20 22:00 Temperature 36.8 C Pulse Rate 84 84 86 Respiratory Rate 24 H 24 H 19 Blood Pressure 176/85 H Pulse Oximetry 95 11/08/20 22:18 11/08/20 23:58 11/09/20 00:00 Temperature 36.9 C Pulse Rate 85 84 85 Respiratory Rate 23 H Blood Pressure 181/86 H Pulse Oximetry 95 96 11/09/20 02:00 11/09/20 02:14 11/09/20 02:34 Temperature 37.0 C Pulse Rate 79 80 82 Respiratory Rate 20 24 H 24 H Blood Pressure 168/78 H Pulse Oximetry 92 11/09/20 02:46 11/09/20 02:55 11/09/20 04:00 Temperature 37.0 C Pulse Rate 78 80 76 Respiratory Rate 21 H Blood Pressure 170/80 H Pulse Oximetry 93 94 11/09/20 06:00 11/09/20 06:13 11/09/20 08:00 Temperature 37.0 C Pulse Rate 81 78 Respiratory Rate 23 H Blood Pressure 165/84 H Pulse Oximetry 93 91 92 11/09/20 09:00 Temperature Pulse Rate 79 Respiratory Rate Blood Pressure Pulse Oximetry Intake/Output Intake/Output: Intake & Output 11/06/20 11/07/20
--- NOTE | 2020-11-09 09:27 | PM.IMPN ---
Progress Note: A&P Assessment and Plan (1) Cardiac arrest: Code(s): I46.9 - Cardiac arrest, cause unspecified Status: Acute Assessment and Plan: Although etiology is not fully clear it is likely secondary to aspiration pneumonia. Patient was found unresponsive on CPAP in his room. Duration of down time unknown. Possibly hypercarbic but ABG done once he was intubated showed only mild hypercarbia; PE less likely given negative Dopplers 2 days before and that he is on anticoagulation up until 1 day before the event. Trop negative x4 making PE and an acute cardiac event less likely. EKG shows sinus rhythm without ischemic changes. Echo EF 68% and Grade II diastolic dysfunction and no wall motion abnormalities. Head CT 11/01 was negative for acute changes. Tolerated the hypothermia protocol. Now off hypothermia protocol. Repeat CT brain 11/04 showing no acute findings. Remans a full code. (2) Acute respiratory failure: Code(s): J96.00 - Acute respiratory failure, unspecified whether with hypoxia or hypercapnia Status: Acute Assessment and Plan: Patient has chronic respiratory failure at baseline. Acute respiratory failure secondary to cardiac arrest, aspiration pneumonia and pulmonary edema. CT chest 11/04 showing atelectasis, small pleural effusion and small volume of ascites. (3) Aspiration pneumonia: Code(s): J69.0 - Pneumonitis due to inhalation of food and vomit Status: Acute Assessment and Plan: As above. CXR last done 11/06 showed improved bilateral airspace disease which may represent pneumonia or edema. Patient is on Zosyn. (4) Anoxic brain injury: Code(s): G93.1 - Anoxic brain damage, not elsewhere classified Status: Acute Assessment and Plan: Patient appears to be encephalopathic post code. CT brain 11/01 showing no acute process. Repeat CT brain 11/04 showing no acute findings. Continue to monitor for any recovery. (5) Diabetic foot infection: Code(s): E11.628 - Type 2 diabetes mellitus with other skin complications; L08.9 - Local infection of the skin and subcutaneous tissue, unspecified Status: Acute Assessment and Plan: Presents with foul smelling left foot wound. BCx (2of2) positive felt from the foot wound. ROSA showed no significant arterial occlusive disease. Patient underwent excisional debridement of gangrenous left heel ulcer 10/31/20. Continue current wound care. (6) Bacteremia: Code(s): R78.81 - Bacteremia Status: Acute Assessment and Plan: BCx (2of2) on 10/28 positive for Proteus Mirabilis and Morganella morganii both sensitive to Zosyn. Related to the foot infection. ID saw him appreciate input. Continue Zosyn. (7) Acute hyperkalemia: Code(s): E87.5 - Hyperkalemia Status: Acute Assessment and Plan: Improved with Kayexalate and Lasix. (8) Diabetes mellitus with diabetic nephropathy, with long-term current use of insulin: Qualifiers: Diabetes mellitus type: type 2 Qualified Code(s): E11.21 - Type 2 diabetes mellitus with diabetic nephropathy; Z79.4 - lobsterman (current) use of insulin Code(s): E11.21 - Type 2 diabetes mellitus with diabetic nephropathy; Z79.4 - lobsterman (current) use of insulin Status: Acute Assessment and Plan: A1c 7.5 in August. Glucose remains well controlled. Continue AccuCheks covering with sliding scale. Hypoglycemia protocol available as needed. Monitor closely since he is unable to tolerate TF. (9) Obesity hypoventilation syndrome: Code(s): E66.2 - Morbid (severe) obesity with alveolar hypoventilation Status: Acute Assessment and Plan: PFTs demonstrating severe restrictive ventilatory defect. As above. (10) Diastolic HF (heart failure): Code(s): I50.30 - Unspecified diastolic (congestive) heart failure Status: Acute Assessment and Plan: Patient has diastolic dys
[2020-11-09 09:41] LABS: Lipase 262 U/L (23-300)
[2020-11-09] MEDS: cloNIDine HCL 0.1 MG TABLET PO ×2 (11:10→17:24)
[2020-11-09 11:15] LABS: Hepatitis B Surface Antigen Negative (Negative)
[2020-11-09 11:18] LABS: HAV RESULT Negative (Negative); Hepatitis B Core IgM Result Negative (Negative)
[2020-11-09 11:35] LABS: Hepatitis C Virus Antibody Negative (Negative)
[2020-11-09 13:37] LABS: Glucose Point of Care 106 mg/dl (65-105)
--- NOTE | 2020-11-09 16:09 | WPDINTPN ---
Progress Note: A&P Assessment and Plan (1) Hemoptysis: Code(s): R04.2 - Hemoptysis Status: Acute Assessment and Plan: Patient is having a lot of clots being suction out of his ETT along with elena blood. -patient is on heparin infusion for history of DVTs, HOLD HEPARIN FOR NOW -will obtain venous Dopplers of lower extremity - consult pulmonary in a.m. for possible bronch (2) Polyuria: Code(s): R35.8 - Other polyuria Status: Acute Assessment and Plan: Could be related to central DI secondary to hypoxic brain injury -serum and urine osmolality has been obtained and pending -urine lytes showed diluted urine but elevated sodium levels which does not coincide with diabetes insipidus -appreciate Nephrology evaluation and recommendations -patient was slightly hyponatremic but that has been under control with increasing free water flushes through the feeding tube (3) Cardiac arrest: Code(s): I46.9 - Cardiac arrest, cause unspecified Status: Acute Assessment and Plan: Cardia arrest on 11/01: Etiology unclear, could be secondary to aspiration pneumonia. Patient was found unresponsive on CPAP in his room. Be related to hypercarbia Patient had Dopplers done 2 days ago which were negative for DVT and also was on anticoagulation until day before yesterday making PE unlikely etiology. Patient also was anemic and anticoagulation had to be stopped because of the surgery. Patient also is in acute kidney injury precluding CTA. Patient also morbidly obese and does not fit in our CT scanner -Echocardiogram reviewed EKG shows sinus rhythm Head CT was negative for acute change Serial troponin were negative busher helper Patient opening his eyes, withdraws to pain, has brainstem reflexes (4) Acute respiratory failure: Code(s): J96.00 - Acute respiratory failure, unspecified whether with hypoxia or hypercapnia Status: Acute Assessment and Plan: Secondary to cardiac arrest and aspiration pneumonia. also has pulmonary edema Ventilator settings reviewed. decrease tidal volume to 420. Peep of 8 and 45% FiO2 ABGs and chest x-rays reviewed, ventilator adjusted Patient auto diuresing Patient has chronic respiratory failure with severe lungs sick to disease with total lung capacity only 66% (5) Aspiration pneumonia: Code(s): J69.0 - Pneumonitis due to inhalation of food and vomit Status: Acute Assessment and Plan: Sputum and blood cultures. Patient is on Zosyn (6) Anoxic brain injury: Code(s): G93.1 - Anoxic brain damage, not elsewhere classified Status: Acute Assessment and Plan: Patient appears to be encephalopathic post code patient has completed TTM protocol for 24hrs -sedation has been on hold since 11/03. -patient tries to open his eyes but does not blink to threat, positive pupillary, corneal, gag, cough reflex. Patient also has spontaneous breathing on pressure support ventilation -no seizure activity noted -patient requires EEG, neurology evaluation and MRI to assess neurologic/brain function. -11/06: called and placed patient on a waiting list at [facility] and [facility] in [facility]. -[facility] in [facility] was not placing patient is on waiting list, -[facility] and [facility] in [facility], were not entertaining any patients at this time (7) Diabetic foot infection: Code(s): E11.628 - Type 2 diabetes mellitus with other skin complications; L08.9 - Local infection of the skin and subcutaneous tissue, unspecified Status: Acute Assessment and Plan: x-ray of the foot showed no osteomyelitis. status post debridement ROSA showed no significant arterial occlusive disease vancomycin d/c'd per ID BC-->+Proteus Mirabilis and Morganella morganii ID following, recommendations appreciated Surgery following, recommendations appreciated Asha Dawson
[2020-11-09 17:45] LABS: Glucose Point of Care 112 mg/dl (65-105)
[2020-11-09] MEDS: INSULIN GLARGINE (*BKC) 100 UNITS/ML 12 UNITS SUB-Q (21:30)
[2020-11-09 23:39] LABS: Glucose Point of Care 122 mg/dl (65-105)
[2020-11-10] VITALS (29 sets, daily range): BP systolic 147–175; BP diastolic 68–87; PULSE 62–87; RESP 20–26; TEMP 36.6–37.1; O2SAT 91–97
[2020-11-10 00:41] LABS: Partial Thromboplastin Time 90.7 SECONDS (22.3-36.8)
[2020-11-10] MEDS: HEPARIN SOD/D5W 100 UNITS/ML 25,000 UNITS/250 ML BAG 28 UNITS IV CONT ×3 (01:10→20:00)
[2020-11-10] MEDS: IPRATROPIUM BR 0.02% INH SOLN 0.5 MG/2.5 ML VIAL INHALATION ×4 (02:10→21:12)
[2020-11-10] MEDS: ALBUTEROL SULFATE NEB 2.5 MG/0.5 ML INH INHALATION ×4 (02:10→21:12)
[2020-11-10] MEDS: cloNIDine HCL 0.1 MG TABLET PO ×3 (02:25→17:59)
[2020-11-10 05:53] LABS: Basophils Absolute Auto 0.1 K/mm3 (0.0-0.1); Basophils Percent Auto 0.8 % (0.2-1.2); Eosinophils Absolute Auto 0.7 K/mm3 (0-0.3); Eosinophils Percent Auto 7.3 % (0-4.4); Hematocrit 32.2 % (42.0-52.0); Hemoglobin 9.5 g/dL (14.0-18.0); Lymphocytes Absolute Auto 1.91 K/mm3 (0.9-3.2); Mean Corpuscular HGB Conc 29.5 g/dl (32-36); Mean Corpuscular Hemoglobin 28.3 pg (26-34); Mean Corpuscular Volume 95.8 fl (80-100); Mean Platelet Volume 10.5 fl (7.4-10.4); Monocytes Absolute Auto 0.7 K/mm3 (0.1-0.6); Monocytes Percent Auto 7.7 % (2.6-8.5); Neutrophils Percent Auto 63.2 % (45.5-73.1); Platelet Count Result 245 k/mm3 (150-375); Red Blood Count 3.36 M/mm3 (4.6-6.20); Red Cell Distribution Width 15.9 % (11.5-14.5); White Blood Count 9.6 K/mm3 (4.5-10.0)
[2020-11-10] MEDS: METOCLOPRAMIDE HCL INJ 10 MG/2 ML VIAL IV PUSH ×3 (05:57→17:59)
[2020-11-10] MEDS: CENTRAL LINE FLUSH 10 ML IV PUSH ×3 (05:59→21:14)
[2020-11-10 06:08] LABS: Base Excess ABG 5.5 mEq/l (+/-2.0); Fractional Inspired Oxygen 40 %; HCO3 ABG 29.9 mEq/l (22.0-26.0); Oxygen Saturation ABG 96.8 % (95.0-100.0); Oxyhemoglobin 95.3 % THb (90.0-100.0); PCO2 ABG 43.8 mmHg (35.0-45.0); PO2 ABG 85.8 mmHg (80.0-100.0); PO2 FiO2 Ratio Arterial Blood 2.14 %; pH ABG 7.452 (7.350-7.450)
[2020-11-10 06:08] LABS: Alanine Aminotransferase 314 U/L (4-50); Albumin Level 3.6 g/dL (3.5-5.1); Alkaline Phosphatase 134 U/L (38-126); Anion Gap 4 mmol/L (8-16); Aspartate Amino Transferase 183 U/L (17-59); Bilirubin,Total 0.7 mg/dL (0.2-1.3); Blood Urea Nitrogen 32 mg/dL (9-20); Calcium 8.8 mg/dL (8.4-10.2); Carbon Dioxide 31 mmol/L (22-30); Chloride 107 mmol/L (98-107); Estimated CRCL calculation 73 ml/min; Estimated Glomerular Filt Rate 43; Glucose 119 mg/dL (65-110); Lipase 328 U/L (23-300); Magnesium 1.8 mg/dL (1.6-2.3); Phosphorus 3.8 mg/dL (2.5-4.5); Potassium 3.8 mmol/L (3.4-5.0); Sodium 142 mmol/L (137-145)
[2020-11-10 06:10] LABS: Partial Thromboplastin Time 95.5 SECONDS (22.3-36.8)
[2020-11-10 06:11] LABS: Device VENTILATOR; Modified Allen's Test Pass; Site Drawn RIGHT RADIAL; Total Hemoglobin 5.1 g/dL (12.0-18.0)
[2020-11-10 06:12] LABS: Arterial Blood Gas PEEP 5 cmH2O; Arterial Blood Gas Tidal Volume 500 ml; Arterial Blood Gas Vent Mode CMV; Arterial Blood Gas Ventilator rate 20 /MIN
[2020-11-10 06:42] LABS: Hypochromasia 1+ (NORMAL); Platelet Estimate Adequate (Adequate)
[2020-11-10 06:43] LABS: Anisocytosis 1+ (NORMAL)
[2020-11-10] MEDS: amLODIPine BESYLATE 5 MG TABLET 10 MG PO (08:58)
[2020-11-10] MEDS: hydrALAZINE HCL 25 MG TABLET 50 MG PO ×4 (08:58→21:12)
[2020-11-10] MEDS: POLYSACCHARIDE IRON COMPLEX 150 MG CAPSULE FEED TUBE (08:58)
[2020-11-10] MEDS: carvediloL 12.5 MG TABLET PO ×2 (08:58→21:11)
[2020-11-10] MEDS: TOLNAFTATE 1% POWDER 45 GM BTL 1 APPLIC TOPICAL ×2 (08:59→21:12)
[2020-11-10] MEDS: PANTOPRAZOLE SODIUM IV 40 MG VIAL IV PUSH (08:59)
[2020-11-10] MEDS: EUCERIN CREAM 120 GM JAR 1 APPLIC TOPICAL ×2 (08:59→17:02)
[2020-11-10] MEDS: SOD HYPOCHLORITE 1/4 STRENGTH 473 ML 1 APPLIC TOPICAL ×2 (08:59→21:13)
[2020-11-10] MEDS: MINERAL OIL/WHITE PETROLATUM OINTMENT 1 APPLIC EACH EYE ×2 (08:59→21:13)
[2020-11-10] MEDS: MICONAZOLE NITRATE 2% CREAM 30 GM TUBE 1 APPLIC TOPICAL ×2 (08:59→21:12)
--- NOTE | 2020-11-10 10:33 | WPDINTPN ---
Progress Note: A&P Assessment and Plan (1) Hemoptysis: Code(s): R04.2 - Hemoptysis Status: Acute Assessment and Plan: Appears to have improved. Small amount of clots in ETT which appears to be old blood -will clean the ET tube with rescue cath -continue heparin infusion for now for DVT -if bleeding recurs, may have to discontinue it - consult pulmonary in a.m. for possible bronch (2) Polyuria: Code(s): R35.8 - Other polyuria Status: Acute Assessment and Plan: Patient presented with significant volume overload and was diuresed -his urine output is now still elevated. -his creatinine is improving -his sodium and chloride level are normal suggesting againstl DI but will continue to closely monitor -serum and urine osmolality has been obtained and pending -urine lytes showed diluted urine but elevated sodium levels which does not coincide with diabetes insipidus -nephrology is following (3) Cardiac arrest: Code(s): I46.9 - Cardiac arrest, cause unspecified Status: Acute Assessment and Plan: Cardia arrest on 11/01: Etiology unclear, could be secondary to aspiration pneumonia. Patient was found unresponsive on CPAP in his room. Be related to hypercarbia Patient had Dopplers done 2 days ago which were negative for DVT and also was on anticoagulation until day before yesterday making PE unlikely etiology. Patient also was anemic and anticoagulation had to be stopped because of the surgery. Patient also is in acute kidney injury precluding CTA. Patient also morbidly obese and does not fit in our CT scanner -Echocardiogram reviewed EKG shows sinus rhythm Head CT was negative for acute change Serial troponin were negative color television console monitor Patient opening his eyes, withdraws to pain, has brainstem reflexes (4) Acute respiratory failure: Code(s): J96.00 - Acute respiratory failure, unspecified whether with hypoxia or hypercapnia Status: Acute Assessment and Plan: Secondary to cardiac arrest and aspiration pneumonia. also has pulmonary edema Ventilator settings reviewed. decrease tidal volume to 420. Peep of 8 and 45% FiO2 ABGs and chest x-rays reviewed, ventilator adjusted Patient auto diuresing Patient has chronic respiratory failure with severe lungs sick to disease with total lung capacity only 66% (5) Aspiration pneumonia: Code(s): J69.0 - Pneumonitis due to inhalation of food and vomit Status: Acute Assessment and Plan: Sputum and blood cultures. Patient has completed a course of Zosyn but will check with ID regarding duration of antibiotic therapy for his foot wound before discontinuing (6) Anoxic brain injury: Code(s): G93.1 - Anoxic brain damage, not elsewhere classified Status: Acute Assessment and Plan: Patient appears to be encephalopathic post code patient has completed TTM protocol for 24hrs -sedation has been on hold since 11/03. -patient tries to open his eyes but does not blink to threat, positive pupillary, corneal, gag, cough reflex. Patient also has spontaneous breathing on pressure support ventilation -no seizure activity noted -patient requires EEG, neurology evaluation and MRI to assess neurologic/brain function. -11/06: called and placed patient on a waiting list at [facility] and [facility] in [facility]. -[facility] in [facility] was not placing patient is on waiting list, -[facility] and [facility] in [facility], were not entertaining any patients at this time (7) Diabetic foot infection: Code(s): E11.628 - Type 2 diabetes mellitus with other skin complications; L08.9 - Local infection of the skin and subcutaneous tissue, unspecified Status: Acute Assessment and Plan: x-ray of the foot showed no osteomyelitis. status post debridement ROSA showed no significant arterial occlusive disease vancomycin d/c'd per
--- NOTE | 2020-11-10 11:00 | PCDIET ---
ICU Rounding Note: Patient tolerating Glucerna 1.2 at 50mL/hr with 100mL water flush every 4 hours. No documented emesis since last review, and patient now tolerating feedings, per RN. Last recorded weight is 155.9kg which is down from last review. -I/O. Bowel Motility: Last documented BM on 11/06/20 x 1. Could consider medication to promote BM, if medically appropriate. Labs Reviewed: RBC (3.36), Hgb (9.5), Hct (32.2), Glu (119), BUN (32), Cr (1.7), Lipase (328) Meds Noted: Albuterol, Norvasc, Coreg, Apresoline, Lantus, Atrovent, Reglan, Protonix, Zosyn, Nifirex-150 Additional Notes: Blister to left wrist. Diabetic ulcer on left fifth toe. Ulcer to left heel s/p debridement. Following daily in ICU rounds. Assessing/reassessing every Tuesday/Tuesday.
[2020-11-10 12:15] LABS: Glucose Point of Care 126 mg/dl (65-105)
[2020-11-10] MEDS: hydrALAZINE HCL 20 MG/ML VIAL IV PUSH (14:12)
--- NOTE | 2020-11-10 15:40 | PM.PNNEP ---
Progress Note: A&P Assessment and Plan (1) SHAKIRA (acute kidney injury): Code(s): N17.9 - Acute kidney failure, unspecified Status: Acute Assessment and Plan: resolving most likely due to infection on admission and worsened by cardiac arrest leading to ATN creatinine is trending down reasonable urine output follow electrolytes/repeat labs and UOP (2) Stage 3b chronic kidney disease: Code(s): N18.32 - Chronic kidney disease, stage 3b Status: Chronic Assessment and Plan: baseline creatinine runs ~ 1.4 - 1.7mg/dl in the last year however, whenever he is acute ill, it has risen to as high as 6.0mg/dl he may have a new baseline creatinine at this point given his recurrent bouts on SHAKIRA/ARF... (3) Polyuria: Code(s): R35.8 - Other polyuria Status: Acute Assessment and Plan: significant urine output in the last several days concern is that this maybe a manifestion of diabetes insipidus was being diuresed previously but now he is auto-diuresising creatinie stable if not improving sodium is normal making DI less likely dilute urine noted but urine sodium high (not c/w DI also) (4) Anoxic brain injury: Code(s): G93.1 - Anoxic brain damage, not elsewhere classified Status: Acute Assessment and Plan: remains encephalopathic post cardic arrest sedation on hold since 11/03 without much improvement opens eyes (but no blink to threat) and with gap reflex along with spontaneous breathing noted on PSV possible transfer for further neurological evaluation. (5) Acute respiratory failure: Code(s): J96.00 - Acute respiratory failure, unspecified whether with hypoxia or hypercapnia Status: Acute Assessment and Plan: secondary to cardiac arrest, aspiration pneumonia, and pulmonary edema complicated by known chronic respiratory failure continue ventilator support (6) Cardiac arrest: Code(s): I46.9 - Cardiac arrest, cause unspecified Status: Acute Assessment and Plan: occurred on 11/01/20 etiology(?) -- aspiration versus hypercarbia versus other.... Echo results noted continue supportive therapy (7) Bacteremia: Code(s): R78.81 - Bacteremia Status: Acute Assessment and Plan: blood cultures with Proteus Mirabilis and Morganella morganii on 6 week course of antibiotics per ID repeat cultures negative to date (8) Diabetic foot infection: Code(s): E11.628 - Type 2 diabetes mellitus with other skin complications; L08.9 - Local infection of the skin and subcutaneous tissue, unspecified Status: Acute Assessment and Plan: x-ray of the foot showed no osteomyelitis status post debridement ROSA showed no significant arterial occlusive disease Surgery and ID following to complete 6 week course of antibiotics local wound care (9) Diabetes: Code(s): E11.9 - Type 2 diabetes mellitus without complications Status: Acute Assessment and Plan: follow accuchecks on SSI and Lantus Will continue to follow. Subjective Date/time seen: 11/10/20 15:40 Chart reviewed -- assuming care from Dr. Bernal; remains on mechanical ventilation but not waking up despite being off sedation; remains hemodynamically stable with reasonably urine output; no apparent distress noted; no acute issues/events overnight or earlier this AM. Exam Narrative: General: WD/WN male intubated and on ventilator Heart: normal S1 and S2; no rub Lungs: coarse breath sounds and decreased at bases Abdomen: obese but soft, nontender, nondistended, positive bowel sounds Extremities: no cyanosis or clubbing; chronic edematous changes Skin: chronic venous stasis appearance with dressings in place Objective Data Vital Signs Vital Signs: Vital Signs Temp Pulse Resp BP Pulse Ox 11/10/20 15:00 152/76 H 11/10/20 14:00 36.6 C 72 24 H 175/87 H 96 11/10/20 13:55
--- NOTE | 2020-11-10 15:40 | P.PNNP_ITS ---
Progress Note: A&P Assessment and Plan (1) SHAKIRA (acute kidney injury): Code(s): N17.9 - Acute kidney failure, unspecified Status: Acute Assessment and Plan: * resolving * most likely due to infection on admission and worsened by cardiac arrest leading to ATN * creatinine is trending down * reasonable urine output * follow electrolytes/repeat labs and UOP (2) Stage 3b chronic kidney disease: Code(s): N18.32 - Chronic kidney disease, stage 3b Status: Chronic Assessment and Plan: * baseline creatinine runs ~ 1.4 - 1.7mg/dl in the last year * however, whenever he is acute ill, it has risen to as high as 6.0mg/dl * he may have a new baseline creatinine at this point given his recurrent bouts on SHAKIRA/ARF... (3) Polyuria: Code(s): R35.8 - Other polyuria Status: Acute Assessment and Plan: * significant urine output in the last several days * concern is that this maybe a manifestion of diabetes insipidus * was being diuresed previously but now he is auto-diuresising * creatinie stable if not improving * sodium is normal making DI less likely * dilute urine noted but urine sodium high (not c/w DI also) (4) Anoxic brain injury: Code(s): G93.1 - Anoxic brain damage, not elsewhere classified Status: Acute Assessment and Plan: * remains encephalopathic post cardic arrest * sedation on hold since 11/03 without much improvement * opens eyes (but no blink to threat) and with gap reflex along with spontaneous breathing noted on PSV * possible transfer for further neurological evaluation. (5) Acute respiratory failure: Code(s): J96.00 - Acute respiratory failure, unspecified whether with hypoxia or hyperca pnia Status: Acute Assessment and Plan: * secondary to cardiac arrest, aspiration pneumonia, and pulmonary edema * complicated by known chronic respiratory failure * continue ventilator support (6) Cardiac arrest: Code(s): I46.9 - Cardiac arrest, cause unspecified Status: Acute Assessment and Plan: * occurred on 11/01/20 * etiology(?) -- aspiration versus hypercarbia versus other.... * Echo results noted * continue supportive therapy (7) Bacteremia: Code(s): R78.81 - Bacteremia Status: Acute Assessment and Plan: * blood cultures with Proteus Mirabilis and Morganella morganii * on 6 week course of antibiotics per ID * repeat cultures negative to date (8) Diabetic foot infection: Code(s): E11.628 - Type 2 diabetes mellitus with other skin complications; L08.9 - Local infection of the skin and subcutaneous tissue, unspecified Status: Acute Assessment and Plan: * x-ray of the foot showed no osteomyelitis * status post debridement * ROSA showed no significant arterial occlusive disease * Surgery and ID following * to complete 6 week course of antibiotics * local wound care (9) Diabetes: Code(s): E11.9 - Type 2 diabetes mellitus without complications Status: Acute Assessment and Plan: * follow accuchecks * on SSI and Lantus Will continue to follow. Subjective Date/time seen: 11/10/20 15:40 Chart reviewed -- assuming care from Dr. Bernal; remains on mechanical ventilation but not waking up despite being off sedation; remains hemodynamically stable with reasonably urine output; no apparent distress noted; no acute issues/events overnight or earlier this AM. Exam Narrative: General: WD/WN male intubated and
[2020-11-10 17:58] LABS: Glucose Point of Care 117 mg/dl (65-105)
[2020-11-10] MEDS: INSULIN GLARGINE (*BKC) 100 UNITS/ML 12 UNITS SUB-Q (21:12)
[2020-11-10 22:40] LABS: Kappa\\Lambda Light Chains 2.54 (0.26-1.65); Lambda Light Chain 87.7 mg/L (5.7-26.3)
[2020-11-11] VITALS (26 sets, daily range): BP systolic 129–170; BP diastolic 65–90; PULSE 65–96; RESP 19–24; TEMP 36.4–37.2; O2SAT 91–97
[2020-11-11] MEDS: cloNIDine HCL 0.1 MG TABLET PO ×3 (02:09→17:50)
[2020-11-11 02:12] LABS: Glucose Point of Care 138 mg/dl (65-105)
[2020-11-11] MEDS: IPRATROPIUM BR 0.02% INH SOLN 0.5 MG/2.5 ML VIAL INHALATION ×4 (02:48→20:13)
[2020-11-11] MEDS: ALBUTEROL SULFATE NEB 2.5 MG/0.5 ML INH INHALATION ×4 (02:48→20:13)
[2020-11-11 05:13] LABS: Alveolar/Arterial O2 Gradient 171.5 mmHg; Base Excess ABG 4.2 mEq/l (+/-2.0); Fractional Inspired Oxygen 40 %; Oxygen Content ABG 14.2 %vol (16.0-22.0); Oxygen Saturation ABG 92.4 % (95.0-100.0); Oxyhemoglobin 90.5 % THb (90.0-100.0); PCO2 ABG 44.6 mmHg (35.0-45.0); PO2 ABG 62.4 mmHg (80.0-100.0); PO2 FiO2 Ratio Arterial Blood 1.56 %; Total Hemoglobin 11.1 g/dL (12.0-18.0); pH ABG 7.431 (7.350-7.450)
[2020-11-11 05:14] LABS: Arterial Blood Gas PEEP 5 cmH2O; Arterial Blood Gas Tidal Volume 450 ml; Arterial Blood Gas Vent Mode CMV; Arterial Blood Gas Ventilator rate 20 /MIN; Device VENTILATOR; Modified Allen's Test Pass; Site Drawn LEFT RADIAL
[2020-11-11 05:32] LABS: FSH 2.8 mIU/mL (1.6-8.0); Prolactin 24.2 ng/mL (***)
[2020-11-11] MEDS: HEPARIN SOD/D5W 100 UNITS/ML 25,000 UNITS/250 ML BAG 28 UNITS IV CONT ×2 (06:06→15:37)
[2020-11-11] MEDS: CENTRAL LINE FLUSH 10 ML IV PUSH ×3 (06:08→22:00)
[2020-11-11 06:13] LABS: Hematocrit 32.4 % (42.0-52.0); Hemoglobin 9.5 g/dL (14.0-18.0); Mean Corpuscular HGB Conc 29.3 g/dl (32-36); Mean Corpuscular Hemoglobin 27.9 pg (26-34); Mean Corpuscular Volume 95.3 fl (80-100); Mean Platelet Volume 10.7 fl (7.4-10.4); Platelet Count Result 255 k/mm3 (150-375); Red Cell Distribution Width 15.9 % (11.5-14.5); White Blood Count 10.9 K/mm3 (4.5-10.0)
[2020-11-11] MEDS: hydrALAZINE HCL 20 MG/ML VIAL IV PUSH (06:14)
[2020-11-11 06:25] LABS: Partial Thromboplastin Time 105.4 SECONDS (22.3-36.8)
[2020-11-11 08:16] LABS: Glucose Point of Care 128 mg/dl (65-105)
[2020-11-11] MEDS: PANTOPRAZOLE SODIUM IV 40 MG VIAL IV PUSH (08:56)
[2020-11-11] MEDS: amLODIPine BESYLATE 5 MG TABLET 10 MG PO (08:57)
[2020-11-11] MEDS: carvediloL 12.5 MG TABLET PO ×2 (08:57→20:13)
[2020-11-11] MEDS: POLYSACCHARIDE IRON COMPLEX 150 MG CAPSULE FEED TUBE (08:57)
[2020-11-11] MEDS: MINERAL OIL/WHITE PETROLATUM OINTMENT 1 APPLIC EACH EYE ×2 (08:57→20:13)
[2020-11-11] MEDS: hydrALAZINE HCL 25 MG TABLET 50 MG PO ×4 (08:57→20:13)
[2020-11-11] MEDS: MICONAZOLE NITRATE 2% CREAM 30 GM TUBE 1 APPLIC TOPICAL ×2 (08:58→20:13)
[2020-11-11] MEDS: TOLNAFTATE 1% POWDER 45 GM BTL 1 APPLIC TOPICAL ×2 (08:58→20:14)
[2020-11-11] MEDS: EUCERIN CREAM 120 GM JAR 1 APPLIC TOPICAL ×2 (08:58→17:49)
[2020-11-11] MEDS: SOD HYPOCHLORITE 1/4 STRENGTH 473 ML 1 APPLIC TOPICAL ×2 (08:59→20:14)
[2020-11-11 09:43] LABS: Anion Gap 6 mmol/L (8-16); Blood Urea Nitrogen 34 mg/dL (9-20); Calcium 8.9 mg/dL (8.4-10.2); Carbon Dioxide 29 mmol/L (22-30); Chloride 107 mmol/L (98-107); Estimated CRCL calculation 71 ml/min; Estimated Glomerular Filt Rate 40; Glucose 123 mg/dL (65-110); Potassium 3.7 mmol/L (3.4-5.0); Sodium 142 mmol/L (137-145)
--- NOTE | 2020-11-11 10:38 | PM.PNNEP ---
Progress Note: A&P Assessment and Plan (1) SHAKIRA (acute kidney injury): Code(s): N17.9 - Acute kidney failure, unspecified Status: Acute Assessment and Plan: resolving most likely due to infection on admission and worsened by cardiac arrest leading to ATN creatinine is trending down reasonable urine output follow electrolytes/repeat labs and UOP (2) Stage 3b chronic kidney disease: Code(s): N18.32 - Chronic kidney disease, stage 3b Status: Chronic Assessment and Plan: baseline creatinine runs ~ 1.4 - 1.7mg/dl in the last year however, whenever he is acutely ill, it has risen to as high as 6.0mg/dl he may have a new baseline creatinine at this point given his recurrent bouts on SHAKIRA/ARF... (3) Polyuria: Code(s): R35.8 - Other polyuria Status: Acute Assessment and Plan: significant urine output in the last several days - however seems to be slowing down at this time concern is that this maybe a manifestation of diabetes insipidus creatinine stable if not improving sodium is normal making DI less likely dilute urine noted but urine sodium high (not c/w DI also) (4) Anoxic brain injury: Code(s): G93.1 - Anoxic brain damage, not elsewhere classified Status: Acute Assessment and Plan: remains encephalopathic post cardic arrest sedation on hold since 11/03 fluctuations in status noted -- sometimes follows commands but not always consistently previous neurological evaluations noted follow trend of mental status (5) Acute respiratory failure: Code(s): J96.00 - Acute respiratory failure, unspecified whether with hypoxia or hypercapnia Status: Acute Assessment and Plan: secondary to cardiac arrest, aspiration pneumonia, and pulmonary edema complicated by known chronic respiratory failure continue ventilator support (6) Cardiac arrest: Code(s): I46.9 - Cardiac arrest, cause unspecified Status: Acute Assessment and Plan: occurred on 11/01/20 etiology(?) -- aspiration versus hypercarbia versus other.... Echo results noted continue supportive therapy (7) Bacteremia: Code(s): R78.81 - Bacteremia Status: Acute Assessment and Plan: blood cultures with Proteus Mirabilis and Morganella morganii on 6 week course of antibiotics per ID repeat cultures negative to date (8) Diabetic foot infection: Code(s): E11.628 - Type 2 diabetes mellitus with other skin complications; L08.9 - Local infection of the skin and subcutaneous tissue, unspecified Status: Acute Assessment and Plan: x-ray of the foot showed no osteomyelitis status post debridement ROSA showed no significant arterial occlusive disease Surgery and ID following to complete 6 week course of antibiotics local wound care (9) Diabetes: Code(s): E11.9 - Type 2 diabetes mellitus without complications Status: Acute Assessment and Plan: follow accuchecks on SSI and Lantus Will continue to follow. Subjective Date/time seen: 11/11/20 10:38 No new issues or problems overnight or earlier this AM; remains hemodynamically stable but with no significant change with regard to mental status; remains on mechanical ventilator support; continues to have good urine output as well. Exam Narrative: General: WD/WN male intubated and on ventilator Heart: normal S1 and S2; no rub Lungs: coarse breath sounds and decreased at bases Abdomen: obese but soft, nontender, nondistended, positive bowel sounds Extremities: no cyanosis or clubbing; chronic edematous changes Skin: chronic venous stasis changes noted with dressings in place Objective Data Vital Signs Vital Signs: Vital Signs Temp Pulse Resp BP Pulse Ox 11/11/20 08:58 74 22 H 11/11/20 08:57 75 11/11/20 08:14 74 93 11/11/20 08:00 74 93 11/11/20 06:00 82 20 162/73 H 96 11/11/20 05:2
--- NOTE | 2020-11-11 10:38 | P.PNNP_ITS ---
Progress Note: A&P Assessment and Plan (1) SHAKIRA (acute kidney injury): Code(s): N17.9 - Acute kidney failure, unspecified Status: Acute Assessment and Plan: * resolving * most likely due to infection on admission and worsened by cardiac arrest leading to ATN * creatinine is trending down * reasonable urine output * follow electrolytes/repeat labs and UOP (2) Stage 3b chronic kidney disease: Code(s): N18.32 - Chronic kidney disease, stage 3b Status: Chronic Assessment and Plan: * baseline creatinine runs ~ 1.4 - 1.7mg/dl in the last year * however, whenever he is acutely ill, it has risen to as high as 6.0mg/dl * he may have a new baseline creatinine at this point given his recurrent bouts on SHAKIRA/ARF... (3) Polyuria: Code(s): R35.8 - Other polyuria Status: Acute Assessment and Plan: * significant urine output in the last several days - however seems to be slowing down at this time * concern is that this maybe a manifestation of diabetes insipidus * creatinine stable if not improving * sodium is normal making DI less likely * dilute urine noted but urine sodium high (not c/w DI also) (4) Anoxic brain injury: Code(s): G93.1 - Anoxic brain damage, not elsewhere classified Status: Acute Assessment and Plan: * remains encephalopathic post cardic arrest * sedation on hold since 11/03 * fluctuations in status noted -- sometimes follows commands but not always consistently * previous neurological evaluations noted * follow trend of mental status (5) Acute respiratory failure: Code(s): J96.00 - Acute respiratory failure, unspecified whether with hypoxia or hypercapnia Status: Acute Assessment and Plan: * secondary to cardiac arrest, aspiration pneumonia, and pulmonary edema * complicated by known chronic respiratory failure * continue ventilator support (6) Cardiac arrest: Code(s): I46.9 - Cardiac arrest, cause unspecified Status: Acute Assessment and Plan: * occurred on 11/01/20 * etiology(?) -- aspiration versus hypercarbia versus other.... * Echo results noted * continue supportive therapy (7) Bacteremia: Code(s): R78.81 - Bacteremia Status: Acute Assessment and Plan: * blood cultures with Proteus Mirabilis and Morganella morganii * on 6 week course of antibiotics per ID * repeat cultures negative to date (8) Diabetic foot infection: Code(s): E11.628 - Type 2 diabetes mellitus with other skin complications; L08.9 - Local infection of the skin and subcutaneous tissue, unspecified Status: Acute Assessment and Plan: * x-ray of the foot showed no osteomyelitis * status post debridement * ROSA showed no significant arterial occlusive disease * Surgery and ID following * to complete 6 week course of antibiotics * local wound care (9) Diabetes: Code(s): E11.9 - Type 2 diabetes mellitus without complications Status: Acute Assessment and Plan: * follow accuchecks * on SSI and Lantus Will continue to follow. Subjective Date/time seen: 11/11/20 10:38 No new issues or problems overnight or earlier this AM; remains hemodynamically stable but with no significant change with regard to mental status; remains on mechanical ventilator support; continues to have good urine output as well. Exam Narrative: General: WD/WN male intubated and on ventilator Heart: normal S1 and S2; no rub Lungs: coarse
--- NOTE | 2020-11-11 10:49 | WPDINTPN ---
Progress Note: A&P Assessment and Plan (1) Acute respiratory failure: Code(s): J96.00 - Acute respiratory failure, unspecified whether with hypoxia or hypercapnia Status: Acute Assessment and Plan: Secondary to cardiac arrest and aspiration pneumonia. also has pulmonary edema Ventilator settings reviewed. decrease tidal volume to 420. Peep of 8 and 45% FiO2 ABGs and chest x-rays reviewed, ventilator settings reviewed Patient auto diuresing Patient has chronic respiratory failure with severe lungs sick to disease with total lung capacity only 66% (2) Cardiac arrest: Code(s): I46.9 - Cardiac arrest, cause unspecified Status: Acute Assessment and Plan: Cardia arrest on 11/01: Etiology unclear, could be secondary to aspiration pneumonia. Patient was found unresponsive on CPAP in his room. Be related to hypercarbia Patient had Dopplers done 2 days ago which were negative for DVT and also was on anticoagulation until day before yesterday making PE unlikely etiology. Patient also was anemic and anticoagulation had to be stopped because of the surgery. Patient also is in acute kidney injury precluding CTA. Patient also morbidly obese and does not fit in our CT scanner -Echocardiogram reviewed EKG shows sinus rhythm Head CT was negative for acute change Serial troponin were negative clinical research monitor Patient opening his eyes, withdraws to pain, has brainstem reflexes (3) Hemoptysis: Code(s): R04.2 - Hemoptysis Status: Acute Assessment and Plan: Appears to have improved. Small amount of clots in ETT which appears to be old blood -continue heparin infusion for now for DVT -if bleeding recurs, may have to discontinue it (4) Polyuria: Code(s): R35.8 - Other polyuria Status: Acute Assessment and Plan: Patient presented with significant volume overload and was diuresed -his urine output is now tapering off -his creatinine has improved and now stable -his sodium and chloride level are normal suggesting against DI but will continue to closely monitor -serum and urine osmolality has been obtained and pending -urine lytes showed diluted urine but elevated sodium levels which does not coincide with diabetes insipidus -nephrology is following (5) Aspiration pneumonia: Code(s): J69.0 - Pneumonitis due to inhalation of food and vomit Status: Acute Assessment and Plan: Sputum and blood cultures. Patient has completed a course of Zosyn but will check with ID regarding duration of antibiotic therapy for his foot wound before discontinuing (6) Anoxic brain injury: Code(s): G93.1 - Anoxic brain damage, not elsewhere classified Status: Acute Assessment and Plan: Patient appears to be encephalopathic post code patient has completed TTM protocol for 24hrs -sedation has been on hold since 11/03. -patient tries to open his eyes but does not blink to threat, positive pupillary, corneal, gag, cough reflex. Patient also has spontaneous breathing on pressure support ventilation -no seizure activity noted -patient requires EEG, neurology evaluation and MRI to assess neurologic/brain function. -EEG and neuro consult are pending -11/06: called and placed patient on a waiting list at [facility] in [facility]. -[facility] in [facility] was not placing patient is on waiting list, -[facility] and [facility] in [facility], were not entertaining any patients at this time (7) Diabetic foot infection: Code(s): E11.628 - Type 2 diabetes mellitus with other skin complications; L08.9 - Local infection of the skin and subcutaneous tissue, unspecified Status: Acute Assessment and Plan: x-ray of the foot showed no osteomyelitis. status post debridement ROSA showed no significant arterial occlusive disease vancomycin d/c'd per ID BC-->+Proteus Mirabilis and Mor
--- NOTE | 2020-11-11 11:28 | WPDNEURCNPN ---
Assessment and Plan Additional Plan status post cardiopulmonary arrest with hypoxic encephalopathy at the time of this examination he did open his eyes though he did not follow the visual stimuli such as the hand of the examiner and EEG will be required for further delineation in the meantime treatment will be continued as such Consult date: 11/11/20 Time Seen: 10:30 HPI: Ulices Canas is a 50 year old male admitted to the hospital for the complaints of foot wound in addition to the history of 1. Morbid obesity 2. Obstructive sleep apnea 3. Diabetes mellitus 4. Chronic kidney disease and 5. Multiple toes previous amputations. Neuro consultation obtained because patient had cardiopulmonary arrest and subsequently aspiration pneumonia and change in the neurological status. Patient arrested on 11/01, has had negative Doppler study 48 hours ago anticoagulation was stopped because of the surgery, CT reason these and also not fitting his scanner, head CT is negative, sedation has been Tania since 11/03 and EEG has been requested. 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 Chronic kidney disease, stage 3 Baseline creatinine is between 1.7-2.4 Chronic obstructive pulmonary disease Chronic respiratory failure with hypoxia, on home oxygen therapy Congestive heart failure Current use of fdc anticoagulation Diabetes mellitus with diabetic nephropathy, with long-term current use of insulin Diabetic peripheral neuropathy Diastolic dysfunction DVT (deep venous thrombosis) Essential hypertension Gastroesophageal reflux disease History of cellulitis Right lower extremity Insulin dependent diabetes mellitus Lipodermatosclerosis of both lower extremities Morbid obesity Obesity hypoventilation syndrome With PFTs demonstrating severe restrictive ventilatory defect on chronic home O2 of 3 L. Obstructive sleep apnea Osteoarthritis Polyuria Surgical History Surgical History Amputation of one or more toes Amputation of the right 4th toe, amputation of the 2nd and 3rd toe of the left foot Family History Family History Father Diabetes mellitus Cerebrovascular accident Mother DVT (deep venous thrombosis) Cerebrovascular accident Sibling Diabetes mellitus Cerebrovascular accident Social History Social History Social History: The patient has been a resident at [facility] since 2018. He smoked remotely as a young man and quit in 1990. He smoked up to 3 packs per day when he did smoke. He quit drinking alcohol in 1990 but was never a daily drink or heavy drinker. He denies illicit substance use. He is not and has no children. All of his immediate family members are . He is not certain who he would want to name as his surrogate decision maker. At this time he is considered to be a full code. Smoking packs per day: 1.5 Smoking cigarettes per day: 30.0 Years smoked: 15 Smoking pack-years: 22.50 Smoking status: Former smoker Tobacco type: cigarettes Alcohol intake: never Substance use: never Gender identity (if verbalized by the patient): Male Spiritual care concerns: No Agree to blood products: Yes Meds Home Medications and Allergies Home Medications Medication Instructions Recorded Confirmed Type amlodipine 10 mg PO DAILY 05/15/19 10/28/20 History carvedilol 3.125 mg PO BID 05/15/19 10/28/20 History gabapentin 300 mg PO TID 05/15/19 10/28/20 History Xarelto 2.5 mg PO BID 03/02/20 10/28/20 History acetaminophen 650 mg PO Q4H PRN 03/02/20 10/28/20 History albuterol sul
--- NOTE | 2020-11-11 13:36 | PCDIET ---
Nutrition Follow-Up Complete: Nutrition Diagnosis: Inadequate oral intake related to oral intubation as evidenced by need for enteral feedings. Nutrition Goal: Patient to meet estimated nutritional needs. Goal not met. Tube feedings held due to emesis overnight and have since resumed at 20mL/hr rate. Recommend resuming Reglan and considering advancement of feeding tube to jejunem. Last recorded weight is 160 kg which is increased from last review. Bowel Motility: Last documented BM on 11/06/20 x 1. Labs Reviewed: WBC (10.9), RBC (3.40), Hgb (9.5), Hct (32.4), Glu (128), BUN (34), Cr (1.8) Meds Noted: Albuterol, Norvasc, Coreg, Catapres, Apresoline, Lantus, Atrovent, Protonix, Zosyn, Nifirex-150 Additional Notes: Left wrist blister documented, as well as left heel ulcer and left fifth toe diabetic ulcer. Will continue to monitor with same goal. Nutrition Monitoring and Evaluation: Follow up every Tuesday/Tuesday.
[2020-11-11 13:45] LABS: Glucose Point of Care 115 mg/dl (65-105)
[2020-11-11 15:08] LABS: Chloride Rand Ur 56 mmol/L (32-290); Chloride/Creatinine Rand Ur 156 (23-275); Creatinine Random Urine 36 mg/dL (20-320)
[2020-11-11 17:53] LABS: Glucose Point of Care 121 mg/dl (65-105)
[2020-11-11] MEDS: INSULIN GLARGINE (*BKC) 100 UNITS/ML 12 UNITS SUB-Q (20:17)
--- NOTE | 2020-11-11 22:00 | PC.NURSE ---
Addendum entered by Soo Sexton RN 11/12/20 04:02: At 2300, call from Dr. Acevedo updating on patient transfer. Patient not accepted to [facility]. To continue to wait for bed from another facility. Original Note: Spoke with Felicia with [facility] transfer center at 2021. Bed may be available with [facility]. Nurse to give Dr. Acevedo's contact information to [facility] for commodities broker's to communicate. Will continue to wait for bed confirmation from facility. Dr. Acevedo updated and notified by this RN of possible transfer.
[2020-11-12] VITALS (28 sets, daily range): BP systolic 121–174; BP diastolic 60–94; PULSE 60–82; RESP 13–22; TEMP 36.8–37.5; O2SAT 92–96
[2020-11-12 00:20] LABS: Glucose Point of Care 114 mg/dl (65-105)
[2020-11-12] MEDS: IPRATROPIUM BR 0.02% INH SOLN 0.5 MG/2.5 ML VIAL INHALATION ×2 (01:20→08:06)
[2020-11-12] MEDS: ALBUTEROL SULFATE NEB 2.5 MG/0.5 ML INH INHALATION ×2 (01:20→08:06)
[2020-11-12] MEDS: HEPARIN SOD/D5W 100 UNITS/ML 25,000 UNITS/250 ML BAG 28 UNITS IV CONT ×3 (01:36→19:13)
[2020-11-12] MEDS: cloNIDine HCL 0.1 MG TABLET PO ×3 (01:45→17:28)
--- NOTE | 2020-11-12 04:03 | PC.NURSE ---
Call from Rose with [facility] transfer center. No bed available at this time.
[2020-11-12] MEDS: CENTRAL LINE FLUSH 10 ML IV PUSH ×3 (05:25→22:45)
[2020-11-12 05:40] LABS: Glucose Point of Care 130 mg/dl (65-105)
[2020-11-12 05:43] LABS: Hematocrit 31.2 % (42.0-52.0); Hemoglobin 8.9 g/dL (14.0-18.0); Mean Corpuscular HGB Conc 28.5 g/dl (32-36); Mean Corpuscular Hemoglobin 27.3 pg (26-34); Mean Corpuscular Volume 95.7 fl (80-100); Mean Platelet Volume 11.5 fl (7.4-10.4); Platelet Count Result 256 k/mm3 (150-375); Red Blood Count 3.26 M/mm3 (4.6-6.20); Red Cell Distribution Width 16.1 % (11.5-14.5); White Blood Count 11.2 K/mm3 (4.5-10.0)
[2020-11-12 06:01] LABS: Partial Thromboplastin Time 101.4 SECONDS (22.3-36.8)
[2020-11-12 06:02] LABS: Alveolar/Arterial O2 Gradient 194.4 mmHg; Base Excess ABG 3.7 mEq/l (+/-2.0); Carboxyhemoglobin 0.3 % THb (0-2.0); Fractional Inspired Oxygen 50 %; HCO3 ABG 28.3 mEq/l (22.0-26.0); Methemoglobin ABG 0.4 %THb (0-1.5); Oxygen Content ABG 15.2 %vol (16.0-22.0); Oxygen Saturation ABG 98.3 % (95.0-100.0); Oxyhemoglobin 97.1 % THb (90.0-100.0); PCO2 ABG 42.7 mmHg (35.0-45.0); PO2 ABG 114.1 mmHg (80.0-100.0); PO2 FiO2 Ratio Arterial Blood 2.28 %; Reduced Hemoglobin 2.2 %THb (0-5.0); pH ABG 7.439 (7.350-7.450)
[2020-11-12 06:05] LABS: Arterial Blood Gas Vent Mode CMV; Arterial Blood Gas Ventilator rate 20 /MIN; Device VENTILATOR; Modified Allen's Test Pass; Site Drawn LEFT RADIAL
[2020-11-12 06:06] LABS: Arterial Blood Gas PEEP 5 cmH2O; Arterial Blood Gas Tidal Volume 450 ml
[2020-11-12] MEDS: hydrALAZINE HCL 20 MG/ML VIAL IV PUSH (06:11)
[2020-11-12 07:18] LABS: Anion Gap 7 mmol/L (8-16); Blood Urea Nitrogen 33 mg/dL (9-20); Calcium 8.6 mg/dL (8.4-10.2); Carbon Dioxide 28 mmol/L (22-30); Chloride 106 mmol/L (98-107); Estimated CRCL calculation 78 ml/min; Estimated Glomerular Filt Rate 46; Glucose 134 mg/dL (65-110); Potassium 3.7 mmol/L (3.4-5.0); Sodium 141 mmol/L (137-145)
[2020-11-12 08:25] LABS: Osmolality, Urine 411 mOsm/kg (50-1200)
[2020-11-12] MEDS: MICONAZOLE NITRATE 2% CREAM 30 GM TUBE 1 APPLIC TOPICAL ×2 (09:08→20:41)
[2020-11-12] MEDS: PANTOPRAZOLE SODIUM IV 40 MG VIAL IV PUSH (09:08)
[2020-11-12] MEDS: TOLNAFTATE 1% POWDER 45 GM BTL 1 APPLIC TOPICAL ×2 (09:08→20:41)
[2020-11-12] MEDS: hydrALAZINE HCL 25 MG TABLET 50 MG PO ×4 (09:08→20:39)
[2020-11-12] MEDS: MINERAL OIL/WHITE PETROLATUM OINTMENT 1 APPLIC EACH EYE ×2 (09:08→20:39)
[2020-11-12] MEDS: EUCERIN CREAM 120 GM JAR 1 APPLIC TOPICAL ×2 (09:08→17:27)
[2020-11-12] MEDS: POLYSACCHARIDE IRON COMPLEX 150 MG CAPSULE FEED TUBE (09:09)
[2020-11-12] MEDS: amLODIPine BESYLATE 5 MG TABLET 10 MG PO (09:09)
[2020-11-12] MEDS: carvediloL 12.5 MG TABLET PO ×2 (09:09→20:40)
[2020-11-12] MEDS: FUROSEMIDE INJ 40 MG/4 ML VIAL IV PUSH (09:09)
--- NOTE | 2020-11-12 09:32 | WPDINTPN ---
Progress Note: A&P Assessment and Plan (1) Acute respiratory failure: Code(s): J96.00 - Acute respiratory failure, unspecified whether with hypoxia or hypercapnia Status: Acute Assessment and Plan: Secondary to cardiac arrest and aspiration pneumonia. also has pulmonary edema Ventilator settings reviewed. decrease tidal volume to 420. Peep of 8 and 50% FiO2 ABGs and chest x-rays reviewed, ventilator settings reviewed Continue Lasix Placed patient on pressure support ventilation 12/23. Will continue as tolerated Patient has chronic respiratory failure with severe lungs sick to disease with total lung capacity only 66% (2) Cardiac arrest: Code(s): I46.9 - Cardiac arrest, cause unspecified Status: Acute Assessment and Plan: Cardia arrest on 11/01: Etiology unclear, could be secondary to aspiration pneumonia. Patient was found unresponsive on CPAP in his room. Be related to hypercarbia Patient had Dopplers done 2 days ago which were negative for DVT and also was on anticoagulation until day before yesterday making PE unlikely etiology. Patient also was anemic and anticoagulation had to be stopped because of the surgery. Patient also is in acute kidney injury precluding CTA. 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 Patient has completed a course of Zosyn from aspiration standpoint but is on antibiotics for his foot wound bacteremia (5) Anoxic brain injury: Code(s): G93.1 - Anoxic brain damage, not elsewhere classified Status: Acute Assessment and Plan: Patient appears to be encephalopathic post code patient has completed TTM protocol for 24hrs -sedation has been on hold since 11/03. -patient tries to open his eyes but does not blink to threat, positive pupillary, corneal, gag, cough reflex. Patient also has spontaneous breathing on pressure support ventilation -no seizure activity noted clinically -EEG is pending pending -neuro consult reviewed -11/06: called and placed patient on a waiting list at [facility] and [facility] in [facility]. - 11/11 - [facility] refused to accept the patient (6) Diabetic foot infection: Code(s): E11.628 - Type 2 diabetes mellitus with other skin complications; L08.9 - Local infection of the skin and subcutaneous tissue, unspecified Status: Acute Assessment and Plan: x-ray of the foot showed no osteomyelitis. status post debridement ROSA showed no significant arterial occlusive disease vancomycin d/c'd per ID BC-->+Proteus Mirabilis and Morganella morganii ID following, recommendations appreciated Surgery following, recommendations appreciated Continue Zosyn (initiated on 10/30/2020) discussed with Dr. fontanez and he recommends 6 weeks of antibiotic therapy -continue wound care recommendations (7) Acute hyperkalemia: Code(s): E87.5 - Hyperkalemia Status: Acute Assessment and Plan: improved with Kayexalate and Lasix monitor (8) Diabetes mellitus with diabetic nephropathy, with long-term current use of insulin: Qualifiers: Diabetes mellitus type: type 2 Qualified Code(s): E11.21 - Type 2 diabetes mellitus with diabetic nephropathy; Z79.4 - shelter (current) use of insulin Code(s): E11.21 - Type 2 diabetes mellitus with diabetic nephropathy; Z79.4 - Long ter
--- NOTE | 2020-11-12 10:21 | WPDNEUROLOGY ---
Neurology EEG Report General Information Date of Study: 11/11/20 TEST eeg DIAGNOSIS Anoxic brain injury CONDITION OF RECORDING unresponsive EEG NUMBER [id number] CLINICAL HISTORY history of anoxic brain injury. Patient was awake throughout the test with movements of the head and upper extremities. He did not follow commands. He was looking through you. EEG DESCRIPTION background rhythm consists of medium voltage 6 to 7 hertz per 2nd theta activity with no evidence of alpha activity posteriorly or anteriorly. EKG artifact is noted on the right side. Photic stimulation not done. Hyperventilation not done. Non paroxysmal. Nonfocal. Nonlateralizing. IMPRESSION Abnormal record due to the absence of normal background rhythm. There is no evidence of paroxysmal activity throughout the tracing consider the possibility of status. Clinical correlation recommended. These abnormalities could be suggestive of underlying organic or metabolic encephalopathy .
--- NOTE | 2020-11-12 11:46 | PCDIET ---
ICU Rounding Note: Patient currently tolerating Glucerna 1.2 at 50mL/hr via OG tube. Receiving 30mL water flush every 4 hours. Last recorded weight is 156.9kg which is down from last review. -I/O. Bowel Motility: RN reports BM on 11/10/20. Labs Reviewed: WBC (11.2), RBC (3.26), Hgb (8.9), Hct (31.2), Glu (134), BUN (33), Cr (1.6) Meds Noted: Norvasc, Albuterol, Coreg, Catapres, Apresoline, Lantus, Atrovent, Protonix, Zosyn, Nifirex-150, Lasix Additional Notes: No change in skin reported. Following daily in ICU rounds. Assessing/reassessing every Tuesday/Tuesday.
[2020-11-12 12:29] LABS: Glucose Point of Care 134 mg/dl (65-105)
[2020-11-12] MEDS: SOD HYPOCHLORITE 1/4 STRENGTH 473 ML 1 APPLIC TOPICAL ×2 (12:31→20:41)
--- NOTE | 2020-11-12 16:32 | P.PNNP_ITS ---
Progress Note: A&P Assessment and Plan (1) SHAKIRA (acute kidney injury): Code(s): N17.9 - Acute kidney failure, unspecified Status: Acute Assessment and Plan: * resolving * most likely due to infection on admission and worsened by cardiac arrest leading to ATN * creatinine is trending down * reasonable urine output * follow electrolytes/repeat labs and UOP (2) Stage 3b chronic kidney disease: Code(s): N18.32 - Chronic kidney disease, stage 3b Status: Chronic Assessment and Plan: * baseline creatinine runs ~ 1.4 - 1.7mg/dl in the last year * however, whenever he is acutely ill, it has risen to as high as 6.0mg/dl * he may have a new baseline creatinine at this point given his recurrent bouts on SHAKIRA/ARF... (3) Polyuria: Code(s): R35.8 - Other polyuria Status: Acute Assessment and Plan: * urine output appears to be stabilizing * concern is that this maybe a manifestation of diabetes insipidus * creatinine stable if not improving * sodium is normal making DI less likely * dilute urine noted but urine sodium high (not c/w DI also) (4) Anoxic brain injury: Code(s): G93.1 - Anoxic brain damage, not elsewhere classified Status: Acute Assessment and Plan: * remains encephalopathic post cardic arrest * sedation on hold since 11/03 * fluctuations in status noted -- sometimes follows commands but not always consistently * previous neurological evaluation noted * follow trend of mental status (5) Acute respiratory failure: Code(s): J96.00 - Acute respiratory failure, unspecified whether with hypoxia or h ypercapnia Status: Acute Assessment and Plan: * secondary to cardiac arrest, aspiration pneumonia, and pulmonary edema * complicated by known chronic respiratory failure * continue ventilator support (6) Cardiac arrest: Code(s): I46.9 - Cardiac arrest, cause unspecified Status: Acute Assessment and Plan: * occurred on 11/01/20 * etiology(?) -- aspiration versus hypercarbia versus other.... * Echo results noted * continue supportive therapy (7) Bacteremia: Code(s): R78.81 - Bacteremia Status: Acute Assessment and Plan: * blood cultures with Proteus Mirabilis and Morganella morganii * on 6 week course of antibiotics per ID * repeat cultures negative to date (8) Diabetic foot infection: Code(s): E11.628 - Type 2 diabetes mellitus with other skin complications; L08.9 - Local infection of the skin and subcutaneous tissue, unspecified Status: Acute Assessment and Plan: * x-ray of the foot showed no osteomyelitis * status post debridement * ROSA showed no significant arterial occlusive disease * Surgery and ID following * to complete 6 week course of antibiotics * local wound care (9) Diabetes: Code(s): E11.9 - Type 2 diabetes mellitus without complications Status: Acute Assessment and Plan: * follow accuchecks * on SSI and Lantus Dr. Acevedo attempting to address group home goals of care with family given current clinical status as will likely need tracheostomy and possible G-tube for ongoing ventilator weaning and nutritional support should family want to pursue such therapy Will continue to follow. Subjective Date/time seen: 11/12/20 16:32 Remains about the same -- still on ventilator support with stable hemodynamics and afebrile in the last 24 hours; continues to make good urine output; no issues/events overnight or earlier
--- NOTE | 2020-11-12 16:32 | PM.PNNEP ---
Progress Note: A&P Assessment and Plan (1) SHAKIRA (acute kidney injury): Code(s): N17.9 - Acute kidney failure, unspecified Status: Acute Assessment and Plan: resolving most likely due to infection on admission and worsened by cardiac arrest leading to ATN creatinine is trending down reasonable urine output follow electrolytes/repeat labs and UOP (2) Stage 3b chronic kidney disease: Code(s): N18.32 - Chronic kidney disease, stage 3b Status: Chronic Assessment and Plan: baseline creatinine runs ~ 1.4 - 1.7mg/dl in the last year however, whenever he is acutely ill, it has risen to as high as 6.0mg/dl he may have a new baseline creatinine at this point given his recurrent bouts on SHAKIRA/ARF... (3) Polyuria: Code(s): R35.8 - Other polyuria Status: Acute Assessment and Plan: urine output appears to be stabilizing concern is that this maybe a manifestation of diabetes insipidus creatinine stable if not improving sodium is normal making DI less likely dilute urine noted but urine sodium high (not c/w DI also) (4) Anoxic brain injury: Code(s): G93.1 - Anoxic brain damage, not elsewhere classified Status: Acute Assessment and Plan: remains encephalopathic post cardic arrest sedation on hold since 11/03 fluctuations in status noted -- sometimes follows commands but not always consistently previous neurological evaluation noted follow trend of mental status (5) Acute respiratory failure: Code(s): J96.00 - Acute respiratory failure, unspecified whether with hypoxia or hypercapnia Status: Acute Assessment and Plan: secondary to cardiac arrest, aspiration pneumonia, and pulmonary edema complicated by known chronic respiratory failure continue ventilator support (6) Cardiac arrest: Code(s): I46.9 - Cardiac arrest, cause unspecified Status: Acute Assessment and Plan: occurred on 11/01/20 etiology(?) -- aspiration versus hypercarbia versus other.... Echo results noted continue supportive therapy (7) Bacteremia: Code(s): R78.81 - Bacteremia Status: Acute Assessment and Plan: blood cultures with Proteus Mirabilis and Morganella morganii on 6 week course of antibiotics per ID repeat cultures negative to date (8) Diabetic foot infection: Code(s): E11.628 - Type 2 diabetes mellitus with other skin complications; L08.9 - Local infection of the skin and subcutaneous tissue, unspecified Status: Acute Assessment and Plan: x-ray of the foot showed no osteomyelitis status post debridement ROSA showed no significant arterial occlusive disease Surgery and ID following to complete 6 week course of antibiotics local wound care (9) Diabetes: Code(s): E11.9 - Type 2 diabetes mellitus without complications Status: Acute Assessment and Plan: follow accuchecks on SSI and Lantus Dr. Acevedo attempting to address intermodal customer service goals of care with family given current clinical status as will likely need tracheostomy and possible G-tube for ongoing ventilator weaning and nutritional support should family want to pursue such therapy Will continue to follow. Subjective Date/time seen: 11/12/20 16:32 Remains about the same -- still on ventilator support with stable hemodynamics and afebrile in the last 24 hours; continues to make good urine output; no issues/events overnight or earlier this AM. Exam Narrative: General: WD/WN male intubated and on ventilator Heart: normal S1 and S2; no rub Lungs: coarse breath sounds and decreased at bases Abdomen: obese but soft, nontender, nondistended, positive bowel sounds Extremities: no cyanosis or clubbing; chronic edematous changes Skin: chronic venous stasis changes and dressings in place Objective Data Vital Signs Vital Signs: Vital Signs Temp Pulse Resp BP Pulse Ox 11/12/20 16:00 37.
[2020-11-12 17:28] LABS: Glucose Point of Care 122 mg/dl (65-105)
[2020-11-12 20:40] LABS: Glucose Point of Care 138 mg/dl (65-105)
[2020-11-12] MEDS: INSULIN GLARGINE (*BKC) 100 UNITS/ML 12 UNITS SUB-Q (20:41)
[2020-11-13] VITALS (22 sets, daily range): BP systolic 138–182; BP diastolic 70–94; PULSE 69–81; RESP 13–17; TEMP 36.6–37.3; O2SAT 92–100
[2020-11-13 00:19] LABS: Glucose Point of Care 134 mg/dl (65-105)
[2020-11-13] MEDS: cloNIDine HCL 0.1 MG TABLET PO ×3 (02:40→17:22)
[2020-11-13 04:45] LABS: Alveolar/Arterial O2 Gradient 135.8 mmHg; Base Excess ABG 4.5 mEq/l (+/-2.0); Carboxyhemoglobin 0.3 % THb (0-2.0); Device VENTILATOR; Fractional Inspired Oxygen 50 %; HCO3 ABG 30.1 mEq/l (22.0-26.0); Methemoglobin ABG 0.3 %THb (0-1.5); Modified Allen's Test Pass; Oxygen Content ABG 15.5 %vol (16.0-22.0); Oxygen Saturation ABG 99.1 % (95.0-100.0); Oxyhemoglobin 98.1 % THb (90.0-100.0); PO2 ABG 164.5 mmHg (80.0-100.0); PO2 FiO2 Ratio Arterial Blood 3.29 %; Reduced Hemoglobin 1.3 %THb (0-5.0); Site Drawn RIGHT RADIAL; pH ABG 7.398 (7.350-7.450)
[2020-11-13 04:46] LABS: Arterial Blood Gas Vent Mode PRESSURE SUPPORT
[2020-11-13 04:47] LABS: Arterial Blood Gas PEEP 5 cmH2O; Arterial Blood Gas Pressure Support 10 cmH2O
[2020-11-13] MEDS: CENTRAL LINE FLUSH 10 ML IV PUSH ×3 (05:01→21:05)
[2020-11-13] MEDS: HEPARIN SOD/D5W 100 UNITS/ML 25,000 UNITS/250 ML BAG 28 UNITS IV CONT ×3 (05:02→23:43)
[2020-11-13 05:19] LABS: Hematocrit 32.8 % (42.0-52.0); Hemoglobin 9.7 g/dL (14.0-18.0); Mean Corpuscular HGB Conc 29.6 g/dl (32-36); Mean Corpuscular Hemoglobin 27.8 pg (26-34); Mean Platelet Volume 11.6 fl (7.4-10.4); Platelet Count Result 253 k/mm3 (150-375); Red Blood Count 3.49 M/mm3 (4.6-6.20); Red Cell Distribution Width 15.8 % (11.5-14.5); White Blood Count 12.4 K/mm3 (4.5-10.0)
[2020-11-13 05:31] LABS: Partial Thromboplastin Time 83.8 SECONDS (22.3-36.8)
[2020-11-13 05:39] LABS: Alanine Aminotransferase 254 U/L (4-50); Albumin Level 3.7 g/dL (3.5-5.1); Alkaline Phosphatase 149 U/L (38-126); Anion Gap 8 mmol/L (8-16); Aspartate Amino Transferase 108 U/L (17-59); Bilirubin,Total 0.5 mg/dL (0.2-1.3); Blood Urea Nitrogen 35 mg/dL (9-20); Calcium 9.1 mg/dL (8.4-10.2); Carbon Dioxide 30 mmol/L (22-30); Chloride 99 mmol/L (98-107); Estimated CRCL calculation 60 ml/min; Estimated Glomerular Filt Rate 34; Glucose 133 mg/dL (65-110); Potassium 3.6 mmol/L (3.4-5.0); Sodium 137 mmol/L (137-145)
[2020-11-13] MEDS: amLODIPine BESYLATE 5 MG TABLET 10 MG PO (09:20)
[2020-11-13] MEDS: POLYSACCHARIDE IRON COMPLEX 150 MG CAPSULE FEED TUBE (09:20)
[2020-11-13] MEDS: carvediloL 12.5 MG TABLET PO ×2 (09:20→21:03)
[2020-11-13] MEDS: hydrALAZINE HCL 25 MG TABLET 50 MG PO ×4 (09:21→21:03)
[2020-11-13] MEDS: MICONAZOLE NITRATE 2% CREAM 30 GM TUBE 1 APPLIC TOPICAL ×2 (09:21→21:07)
[2020-11-13] MEDS: EUCERIN CREAM 120 GM JAR 1 APPLIC TOPICAL ×2 (09:21→17:22)
[2020-11-13] MEDS: PANTOPRAZOLE SODIUM IV 40 MG VIAL IV PUSH (09:21)
[2020-11-13] MEDS: MINERAL OIL/WHITE PETROLATUM OINTMENT 1 APPLIC EACH EYE ×2 (09:21→21:04)
[2020-11-13] MEDS: SOD HYPOCHLORITE 1/4 STRENGTH 473 ML 1 APPLIC TOPICAL ×2 (09:22→21:06)
[2020-11-13] MEDS: TOLNAFTATE 1% POWDER 45 GM BTL 1 APPLIC TOPICAL ×2 (09:22→21:06)
--- NOTE | 2020-11-13 09:41 | WPDINTPN ---
Progress Note: A&P Assessment and Plan (1) Acute respiratory failure: Code(s): J96.00 - Acute respiratory failure, unspecified whether with hypoxia or hypercapnia Status: Acute Assessment and Plan: Secondary to cardiac arrest and aspiration pneumonia. also has pulmonary edema. Intubated 11/01 Ventilator settings reviewed. Patient has been tolerating pressure support ventilation 12/23 since yesterday which I will continue Wean FiO2 down to 40% ABGs and chest x-rays reviewed, ventilator settings reviewed Patient has been receiving Lasix but will hold today due to slight uptikck in the creatinine Patient has chronic respiratory failure with severe lungs sick to disease with total lung capacity only 66% Patient is not a candidate for extubation due to poor mental status, morbid obesity, chronic respiratory failure and will not be able to protect his airway (2) Cardiac arrest: Code(s): I46.9 - Cardiac arrest, cause unspecified Status: Acute Assessment and Plan: Cardia arrest on 11/01: Etiology unclear, could be secondary to aspiration pneumonia. Patient was found unresponsive on CPAP in his room. Be related to hypercarbia Patient had Dopplers done 2 days ago which were negative for DVT and also was on anticoagulation until day before yesterday making PE unlikely etiology. Patient also was anemic and anticoagulation had to be stopped because of the surgery. Patient also is in acute kidney injury precluding CTA. 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 Patient has completed a course of Zosyn from aspiration standpoint but is on antibiotics for his foot wound bacteremia (5) Anoxic brain injury: Code(s): G93.1 - Anoxic brain damage, not elsewhere classified Status: Acute Assessment and Plan: Patient appears to be encephalopathic post code patient has completed TTM protocol for 24hrs -sedation has been on hold since 11/03. -patient tries to open his eyes but does not blink to threat, positive pupillary, corneal, gag, cough reflex. Patient also has spontaneous breathing on pressure support ventilation -no seizure activity noted clinically -11/06: called and placed patient on a waiting list at [facility] and [facility] in [facility]. 11/11 - [facility] refused to accept the patient -neuro consult reviewed - EEG 11/11 Abnormal record due to the absence of normal background rhythm. There is no evidence of paroxysmal activity throughout the tracing consider the possibility of status. Clinical correlation recommended. These abnormalities could be suggestive of underlying organic or metabolic encephalopathy -neurologically patient has shown some improvement over last few days as he intermittently followed commands yesterday. Moving all 4 extremities although not to commands today. Continue to hold sedation and monitoring (6) Diabetic foot infection: Code(s): E11.628 - Type 2 diabetes mellitus with other skin complications; L08.9 - Local infection of the skin and subcutaneous tissue, unspecified Status: Acute Assessment and Plan: x-ray of the foot showed no osteomyelitis. status post debridement ROSA showed no significant arterial occlusive disease vancomycin d/c'd per ID BC-->+Proteus Mirabilis and Morganella morganii ID following, recommendations ap
--- NOTE | 2020-11-13 11:36 | PCDIET ---
ICU Rounding Note: RN reports tube feeding was held overnight for 300mL residual, but has since been resumed and is currently being tolerated. Noted Reglan was discontinued on 11/10/20. Last recorded weight is 155.3kg which is down from last review. Bowel Motility: +BM today, per RN. Labs Reviewed: WBC (12.4), RBC (3.49), Hgb (9.7), Hct (32.8), Glu (133), BUN (35), Cr (2.1) Meds Noted: Norvasc, Coreg, Protonix, Catapres, Apresoline, Novolog, Lantus, Atrovent, Zosyn, Nifirex-150 Additional Notes: Ulcers to left heel and left fifth toe. Left wrist with blister. No changes reported. Following daily in ICU rounds. Assessing/reassessing every Tuesday/Tuesday.
[2020-11-13 12:03] LABS: Glucose Point of Care 125 mg/dl (65-105)
--- NOTE | 2020-11-13 14:43 | PM.PNNEP ---
Progress Note: A&P Assessment and Plan (1) SHAKIRA (acute kidney injury): Code(s): N17.9 - Acute kidney failure, unspecified Status: Acute Assessment and Plan: relatively stable most likely due to infection on admission and worsened by cardiac arrest leading to ATN creatinine is trending down reasonable urine output follow electrolytes/repeat labs and UOP (2) Stage 3b chronic kidney disease: Code(s): N18.32 - Chronic kidney disease, stage 3b Status: Chronic Assessment and Plan: baseline creatinine runs ~ 1.4 - 1.7mg/dl in the last year however, whenever he is acutely ill, it has risen to as high as 6.0mg/dl he may have a new baseline creatinine at this point given his recurrent bouts on SHAKIRA/ARF... (3) Polyuria: Code(s): R35.8 - Other polyuria Status: Acute Assessment and Plan: urine output appears to be stabilizing concern is that this maybe a manifestation of diabetes insipidus creatinine stable if not improving sodium is normal making DI less likely dilute urine noted but urine sodium high (not c/w DI also) (4) Anoxic brain injury: Code(s): G93.1 - Anoxic brain damage, not elsewhere classified Status: Acute Assessment and Plan: remains encephalopathic post cardic arrest sedation on hold since 11/03 fluctuations in status noted -- sometimes follows commands but not always consistently previous neurological evaluation noted follow trend of mental status (5) Acute respiratory failure: Code(s): J96.00 - Acute respiratory failure, unspecified whether with hypoxia or hypercapnia Status: Acute Assessment and Plan: secondary to cardiac arrest, aspiration pneumonia, and pulmonary edema complicated by known chronic respiratory failure continue ventilator support (6) Cardiac arrest: Code(s): I46.9 - Cardiac arrest, cause unspecified Status: Acute Assessment and Plan: occurred on 11/01/20 etiology(?) -- aspiration versus hypercarbia versus other.... Echo results noted continue supportive therapy (7) Bacteremia: Code(s): R78.81 - Bacteremia Status: Acute Assessment and Plan: blood cultures with Proteus Mirabilis and Morganella morganii on 6 week course of antibiotics per ID repeat cultures negative to date (8) Diabetic foot infection: Code(s): E11.628 - Type 2 diabetes mellitus with other skin complications; L08.9 - Local infection of the skin and subcutaneous tissue, unspecified Status: Acute Assessment and Plan: x-ray of the foot showed no osteomyelitis status post debridement ROSA showed no significant arterial occlusive disease Surgery and ID following to complete 6 week course of antibiotics local wound care (9) Diabetes: Code(s): E11.9 - Type 2 diabetes mellitus without complications Status: Acute Assessment and Plan: follow accuchecks on SSI and Lantus Will continue to follow. Subjective Date/time seen: 11/13/20 14:43 Remains on mechanical ventilation at the time of my visit; good urine output noted; stable hemodynamics; mentation continues to fluctuate; no apparent issues overnight or earlier this AM. Exam Narrative: General: WD/WN male intubated and on ventilator Heart: normal S1 and S2; no rub Lungs: coarse breath sounds and decreased at bases Abdomen: obese but soft, nontender, nondistended, positive bowel sounds Extremities: no cyanosis or clubbing; chronic edematous changes Skin: chronic venous stasis changes Objective Data Vital Signs Vital Signs: Vital Signs Temp Pulse Resp BP Pulse Ox 11/13/20 16:00 37.2 C 75 16 165/80 H 95 11/13/20 14:52 71 95 11/13/20 14:00 37.3 C 69 15 138/70 92 11/13/20 13:17 69 100 11/13/20 12:00 37.1 C 71 16 158/79 H 95 11/13/20 10:28 75 95 11/13/20 10:00 37.0 C 75 14 144/71 H 11/13/20 09:20 76
--- NOTE | 2020-11-13 14:43 | P.PNNP_ITS ---
Progress Note: A&P Assessment and Plan (1) SHAKIRA (acute kidney injury): Code(s): N17.9 - Acute kidney failure, unspecified Status: Acute Assessment and Plan: * relatively stable * most likely due to infection on admission and worsened by cardiac arrest leading to ATN * creatinine is trending down * reasonable urine output * follow electrolytes/repeat labs and UOP (2) Stage 3b chronic kidney disease: Code(s): N18.32 - Chronic kidney disease, stage 3b Status: Chronic Assessment and Plan: * baseline creatinine runs ~ 1.4 - 1.7mg/dl in the last year * however, whenever he is acutely ill, it has risen to as high as 6.0mg/dl * he may have a new baseline creatinine at this point given his recurrent bouts on SHAKIRA/ARF... (3) Polyuria: Code(s): R35.8 - Other polyuria Status: Acute Assessment and Plan: * urine output appears to be stabilizing * concern is that this maybe a manifestation of diabetes insipidus * creatinine stable if not improving * sodium is normal making DI less likely * dilute urine noted but urine sodium high (not c/w DI also) (4) Anoxic brain injury: Code(s): G93.1 - Anoxic brain damage, not elsewhere classified Status: Acute Assessment and Plan: * remains encephalopathic post cardic arrest * sedation on hold since 11/03 * fluctuations in status noted -- sometimes follows commands but not always consistently * previous neurological evaluation noted * follow trend of mental status (5) Acute respiratory failure: Code(s): J96.00 - Acute respiratory failure, unspecified whether with hypoxia or hypercapnia Status: Acute Assessment and Plan: * secondary to cardiac arrest, aspiration pneumonia, and pulmonary edema * complicated by known chronic respiratory failure * continue ventilator support (6) Cardiac arrest: Code(s): I46.9 - Cardiac arrest, cause unspecified Status: Acute Assessment and Plan: * occurred on 11/01/20 * etiology(?) -- aspiration versus hypercarbia versus other.... * Echo results noted * continue supportive therapy (7) Bacteremia: Code(s): R78.81 - Bacteremia Status: Acute Assessment and Plan: * blood cultures with Proteus Mirabilis and Morganella morganii * on 6 week course of antibiotics per ID * repeat cultures negative to date (8) Diabetic foot infection: Code(s): E11.628 - Type 2 diabetes mellitus with other skin complications; L08.9 - Local infection of the skin and subcutaneous tissue, unspecified Status: Acute Assessment and Plan: * x-ray of the foot showed no osteomyelitis * status post debridement * ROSA showed no significant arterial occlusive disease * Surgery and ID following * to complete 6 week course of antibiotics * local wound care (9) Diabetes: Code(s): E11.9 - Type 2 diabetes mellitus without complications Status: Acute Assessment and Plan: * follow accuchecks * on SSI and Lantus Will continue to follow. Subjective Date/time seen: 11/13/20 14:43 Remains on mechanical ventilation at the time of my visit; good urine output noted; stable hemodynamics; mentation continues to fluctuate; no apparent issues overnight or earlier this AM. Exam Narrative: General: WD/WN male intubated and on ventilator Heart: normal S1 and S2; no rub Lungs: coarse breath sounds and decreased at bases Abdomen: obese but soft, nontender, nondistended, positive bowel
[2020-11-13 17:38] LABS: Glucose Point of Care 118 mg/dl (65-105)
[2020-11-13] MEDS: INSULIN GLARGINE (*BKC) 100 UNITS/ML 12 UNITS SUB-Q (21:05)
[2020-11-13 21:20] LABS: Glucose Point of Care 130 mg/dl (65-105)
[2020-11-13 23:09] LABS: Glucose Point of Care 119 mg/dl (65-105)
[2020-11-14] VITALS (22 sets, daily range): BP systolic 134–166; BP diastolic 67–84; PULSE 64–74; RESP 12–17; TEMP 36.9–37.3; O2SAT 90–98
[2020-11-14] MEDS: cloNIDine HCL 0.1 MG TABLET PO ×3 (01:38→17:29)
[2020-11-14 05:04] LABS: Alveolar/Arterial O2 Gradient 116.7 mmHg; Base Excess ABG 5.9 mEq/l (+/-2.0); Carboxyhemoglobin 0.2 % THb (0-2.0); Fractional Inspired Oxygen 40 %; HCO3 ABG 31.5 mEq/l (22.0-26.0); Methemoglobin ABG 0.5 %THb (0-1.5); Oxygen Content ABG 13.9 %vol (16.0-22.0); Oxygen Saturation ABG 97.9 % (95.0-100.0); Oxyhemoglobin 96.5 % THb (90.0-100.0); PCO2 ABG 51.6 mmHg (35.0-45.0); PO2 ABG 109.2 mmHg (80.0-100.0); PO2 FiO2 Ratio Arterial Blood 2.73 %; Reduced Hemoglobin 2.8 %THb (0-5.0); Total Hemoglobin 10.1 g/dL (12.0-18.0); pH ABG 7.404 (7.350-7.450)
[2020-11-14 05:05] LABS: Device VENTILATOR; Modified Allen's Test Unable to perform; Site Drawn RIGHT RADIAL
[2020-11-14 05:06] LABS: Arterial Blood Gas PEEP 5 cmH2O; Arterial Blood Gas Pressure Support 10 cmH2O; Arterial Blood Gas Vent Mode PRESSURE SUPPORT
[2020-11-14] MEDS: CENTRAL LINE FLUSH 10 ML IV PUSH ×3 (06:13→21:33)
[2020-11-14 06:33] LABS: Basophils Absolute Auto 0.1 K/mm3 (0.0-0.1); Basophils Percent Auto 0.6 % (0.2-1.2); Eosinophils Absolute Auto 0.7 K/mm3 (0-0.3); Eosinophils Percent Auto 7.5 % (0-4.4); Hematocrit 30.5 % (42.0-52.0); Hemoglobin 9.2 g/dL (14.0-18.0); Immature Granulocyte Absolute 0.09 K/mm3 (0.00-0.031); Immature Granulocyte Percent A 0.9 % (0-0.5); Lymphocytes Absolute Auto 1.95 K/mm3 (0.9-3.2); Mean Corpuscular HGB Conc 30.2 g/dl (32-36); Mean Corpuscular Hemoglobin 28.5 pg (26-34); Mean Corpuscular Volume 94.4 fl (80-100); Mean Platelet Volume 11.2 fl (7.4-10.4); Monocytes Percent Auto 10.1 % (2.6-8.5); Neutrophils Absolute Auto 5.9 K/mm3 (1.3-6.7); Neutrophils Percent Auto 60.9 % (45.5-73.1); Platelet Count Result 236 k/mm3 (150-375); Red Blood Count 3.23 M/mm3 (4.6-6.20); Red Cell Distribution Width 15.9 % (11.5-14.5); White Blood Count 9.7 K/mm3 (4.5-10.0)
[2020-11-14 06:45] LABS: Partial Thromboplastin Time 111.4 SECONDS (22.3-36.8)
[2020-11-14 06:46] LABS: Alanine Aminotransferase 200 U/L (4-50); Albumin Level 3.5 g/dL (3.5-5.1); Alkaline Phosphatase 137 U/L (38-126); Anion Gap 7 mmol/L (8-16); Aspartate Amino Transferase 92 U/L (17-59); Bilirubin,Total 0.4 mg/dL (0.2-1.3); Blood Urea Nitrogen 37 mg/dL (9-20); Calcium 8.8 mg/dL (8.4-10.2); Carbon Dioxide 31 mmol/L (22-30); Chloride 97 mmol/L (98-107); Estimated CRCL calculation 56 ml/min; Estimated Glomerular Filt Rate 32; Glucose 129 mg/dL (65-110); Magnesium 1.7 mg/dL (1.6-2.3); Phosphorus 4.7 mg/dL (2.5-4.5); Potassium 3.6 mmol/L (3.4-5.0); Sodium 135 mmol/L (137-145)
[2020-11-14] MEDS: HEPARIN SOD/D5W 100 UNITS/ML 25,000 UNITS/250 ML BAG 26 UNITS IV CONT ×2 (08:47→18:44)
[2020-11-14] MEDS: POLYSACCHARIDE IRON COMPLEX 150 MG CAPSULE FEED TUBE (09:39)
[2020-11-14] MEDS: METOCLOPRAMIDE HCL 10 MG/10 ML SOLN UDC FEED TUBE ×4 (09:40→23:10)
[2020-11-14] MEDS: amLODIPine BESYLATE 5 MG TABLET 10 MG PO (09:40)
[2020-11-14] MEDS: carvediloL 12.5 MG TABLET PO ×2 (09:40→20:02)
[2020-11-14] MEDS: hydrALAZINE HCL 25 MG TABLET 50 MG PO ×4 (09:41→20:03)
[2020-11-14] MEDS: MICONAZOLE NITRATE 2% CREAM 30 GM TUBE 1 APPLIC TOPICAL ×2 (09:41→20:03)
[2020-11-14] MEDS: EUCERIN CREAM 120 GM JAR 1 APPLIC TOPICAL ×2 (09:41→17:29)
[2020-11-14] MEDS: SOD HYPOCHLORITE 1/4 STRENGTH 473 ML 1 APPLIC TOPICAL ×2 (09:42→20:03)
[2020-11-14] MEDS: PANTOPRAZOLE SODIUM IV 40 MG VIAL IV PUSH (09:42)
[2020-11-14] MEDS: TOLNAFTATE 1% POWDER 45 GM BTL 1 APPLIC TOPICAL ×2 (09:42→20:03)
--- NOTE | 2020-11-14 10:42 | PM.PNNEP ---
Progress Note: A&P Assessment and Plan (1) SHAKIRA (acute kidney injury): Code(s): N17.9 - Acute kidney failure, unspecified Status: Acute Assessment and Plan: relatively stable - higher creatinine new baseline? most likely due to infection on admission and worsened by cardiac arrest leading to ATN creatinine is trending down reasonable urine output follow electrolytes/repeat labs and UOP (2) Stage 3b chronic kidney disease: Code(s): N18.32 - Chronic kidney disease, stage 3b Status: Chronic Assessment and Plan: baseline creatinine runs ~ 1.4 - 1.7mg/dl in the last year however, whenever he is acutely ill, it has risen to as high as 6.0mg/dl he may have a new baseline creatinine at this point given his recurrent bouts on SHAKIRA/ARF... (3) Polyuria: Code(s): R35.8 - Other polyuria Status: Acute Assessment and Plan: urine output appears to be stabilizing concern is that this maybe a manifestation of diabetes insipidus creatinine stable if not improving sodium is normal making DI less likely dilute urine noted but urine sodium high (not c/w DI also) (4) Anoxic brain injury: Code(s): G93.1 - Anoxic brain damage, not elsewhere classified Status: Acute Assessment and Plan: remains encephalopathic post cardic arrest sedation on hold since 11/03 fluctuations in status noted -- sometimes follows commands but not always consistently previous neurological evaluation noted follow trend of mental status (5) Acute respiratory failure: Code(s): J96.00 - Acute respiratory failure, unspecified whether with hypoxia or hypercapnia Status: Acute Assessment and Plan: secondary to cardiac arrest, aspiration pneumonia, and pulmonary edema complicated by known chronic respiratory failure continue ventilator support (6) Cardiac arrest: Code(s): I46.9 - Cardiac arrest, cause unspecified Status: Acute Assessment and Plan: occurred on 11/01/20 etiology(?) -- aspiration versus hypercarbia versus other.... Echo results noted continue supportive therapy (7) Bacteremia: Code(s): R78.81 - Bacteremia Status: Acute Assessment and Plan: blood cultures with Proteus Mirabilis and Morganella morganii on 6 week course of antibiotics per ID repeat cultures negative to date (8) Diabetic foot infection: Code(s): E11.628 - Type 2 diabetes mellitus with other skin complications; L08.9 - Local infection of the skin and subcutaneous tissue, unspecified Status: Acute Assessment and Plan: x-ray of the foot showed no osteomyelitis status post debridement ROSA showed no significant arterial occlusive disease Surgery and ID following to complete 6 week course of antibiotics local wound care (9) Diabetes: Code(s): E11.9 - Type 2 diabetes mellitus without complications Status: Acute Assessment and Plan: follow accuchecks on SSI and Lantus Will continue to follow. Subjective Date/time seen: 11/14/20 10:42 No real significant change at this time -- remains off all sedation with no significant change in mental status; remains on ventilator support with relative stability in respiratory status; no other events/issues overnight or earlier this AM; no distress noted. Exam Narrative: General: WD/WN male intubated and on ventilator Heart: normal S1 and S2; no rub Lungs: coarse breath sounds; decreased at bases Abdomen: obese but soft, nontender, nondistended, positive bowel sounds Extremities: no cyanosis or clubbing; chronic edematous changes Skin: dressings in place Objective Data Vital Signs Vital Signs: Vital Signs Temp Pulse Resp BP Pulse Ox 11/14/20 10:30 64 97 11/14/20 10:00 37.1 C 64 13 166/80 H 97 11/14/20 09:40 64 11/14/20 08:34 65 96 11/14/20 08:00 37.1 C 64 14 144/67 H 98 11/14/20 06:00 37.0 C
--- NOTE | 2020-11-14 10:42 | P.PNNP_ITS ---
Progress Note: A&P Assessment and Plan (1) SHAKIRA (acute kidney injury): Code(s): N17.9 - Acute kidney failure, unspecified Status: Acute Assessment and Plan: * relatively stable - higher creatinine new baseline? * most likely due to infection on admission and worsened by cardiac arrest leading to ATN * creatinine is trending down * reasonable urine output * follow electrolytes/repeat labs and UOP (2) Stage 3b chronic kidney disease: Code(s): N18.32 - Chronic kidney disease, stage 3b Status: Chronic Assessment and Plan: * baseline creatinine runs ~ 1.4 - 1.7mg/dl in the last year * however, whenever he is acutely ill, it has risen to as high as 6.0mg/dl * he may have a new baseline creatinine at this point given his recurrent bouts on SHAKIRA/ARF... (3) Polyuria: Code(s): R35.8 - Other polyuria Status: Acute Assessment and Plan: * urine output appears to be stabilizing * concern is that this maybe a manifestation of diabetes insipidus * creatinine stable if not improving * sodium is normal making DI less likely * dilute urine noted but urine sodium high (not c/w DI also) (4) Anoxic brain injury: Code(s): G93.1 - Anoxic brain damage, not elsewhere classified Status: Acute Assessment and Plan: * remains encephalopathic post cardic arrest * sedation on hold since 11/03 * fluctuations in status noted -- sometimes follows commands but not always consistently * previous neurological evaluation noted * follow trend of mental status (5) Acute respiratory failure: Code(s): J96.00 - Acute respiratory failure, unspecified whether with hypoxia or hypercapnia Status: Acute Assessment and Plan: * secondary to cardiac arrest, aspiration pneumonia, and pulmonary edema * complicated by known chronic respiratory failure * continue ventilator support (6) Cardiac arrest: Code(s): I46.9 - Cardiac arrest, cause unspecified Status: Acute Assessment and Plan: * occurred on 11/01/20 * etiology(?) -- aspiration versus hypercarbia versus other.... * Echo results noted * continue supportive therapy (7) Bacteremia: Code(s): R78.81 - Bacteremia Status: Acute Assessment and Plan: * blood cultures with Proteus Mirabilis and Morganella morganii * on 6 week course of antibiotics per ID * repeat cultures negative to date (8) Diabetic foot infection: Code(s): E11.628 - Type 2 diabetes mellitus with other skin complications; L08.9 - Local infection of the skin and subcutaneous tissue, unspecified Status: Acute Assessment and Plan: * x-ray of the foot showed no osteomyelitis * status post debridement * ROSA showed no significant arterial occlusive disease * Surgery and ID following * to complete 6 week course of antibiotics * local wound care (9) Diabetes: Code(s): E11.9 - Type 2 diabetes mellitus without complications Status: Acute Assessment and Plan: * follow accuchecks * on SSI and Lantus Will continue to follow. Subjective Date/time seen: 11/14/20 10:42 No real significant change at this time -- remains off all sedation with no sig nificant change in mental status; remains on ventilator support with relative stability in respiratory status; no other events/issues overnight or earlier this AM; no distress noted. Exam Narrative: General: WD/WN male intubated and on ventilator Heart: normal S1 and S2; no rub Lungs: c
--- NOTE | 2020-11-14 10:51 | WPDINTPN ---
Progress Note: A&P Assessment and Plan (1) Acute respiratory failure: Code(s): J96.00 - Acute respiratory failure, unspecified whether with hypoxia or hypercapnia Status: Acute Assessment and Plan: Secondary to cardiac arrest and aspiration pneumonia. also has pulmonary edema. Intubated 11/01 Ventilator settings reviewed. Patient has been tolerating pressure support ventilation 10/5 since 11/12 which I will continue Wean FiO2 down to 40% ABGs and chest x-rays reviewed, ventilator settings reviewed Patient has been receiving Lasix but will hold today due to slight uptick in the creatinine Patient has chronic respiratory failure with severe lungs sick to disease with total lung capacity only 66% Patient is not a candidate for extubation due to poor mental status, morbid obesity, chronic respiratory failure and will not be able to protect his airway (2) Cardiac arrest: Code(s): I46.9 - Cardiac arrest, cause unspecified Status: Acute Assessment and Plan: Cardia arrest on 11/01: Etiology unclear, could be secondary to aspiration pneumonia. Patient was found unresponsive on CPAP in his room. Be related to hypercarbia Patient had Dopplers done 2 days ago which were negative for DVT and also was on anticoagulation until day before yesterday making PE unlikely etiology. Patient also was anemic and anticoagulation had to be stopped because of the surgery. Patient also is in acute kidney injury precluding CTA. 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 Patient has completed a course of Zosyn from aspiration standpoint but is on antibiotics for his foot wound bacteremia (5) Anoxic brain injury: Code(s): G93.1 - Anoxic brain damage, not elsewhere classified Status: Acute Assessment and Plan: Patient appears to be encephalopathic post code patient has completed TTM protocol for 24hrs -sedation has been on hold since 11/03. -patient tries to open his eyes but does not blink to threat, positive pupillary, corneal, gag, cough reflex. Patient also has spontaneous breathing on pressure support ventilation -no seizure activity noted clinically -11/06: called and placed patient on a waiting list at [facility] in [facility]. 11/11 - [facility] refused to accept the patient -neuro consult reviewed - EEG 11/11 Abnormal record due to the absence of normal background rhythm. There is no evidence of paroxysmal activity throughout the tracing consider the possibility of status. Clinical correlation recommended. These abnormalities could be suggestive of underlying organic or metabolic encephalopathy -neurologically patient has shown some improvement over last few days as he intermittently followed commands yesterday. Moving all 4 extremities to pain. It seems that he does follow commands in frequently and intermittently. Continue to hold sedation and monitoring (6) Diabetic foot infection: Code(s): E11.628 - Type 2 diabetes mellitus with other skin complications; L08.9 - Local infection of the skin and subcutaneous tissue, unspecified Status: Acute Assessment and Plan: x-ray of the foot showed no osteomyelitis. status post debridement ROSA showed no significant arterial occlusive disease vancomycin d/c'd per ID BC-->+Proteus Mirabilis and Shi
[2020-11-14 11:52] LABS: Glucose Point of Care 119 mg/dl (65-105)
--- NOTE | 2020-11-14 12:21 | PCDIET ---
Nutrition Follow-Up Complete: Nutrition Diagnosis: Inadequate oral intake related to oral intubation as evidenced by need for enteral feedings. Nutrition Goal: Patient to meet estimated nutritional needs. Goal in progress. Tube feedings held overnight for 360mL residual. Reglan re-started and Glucerna 1.2 infusing at 20mL/hr with goal of 50mL/hr. RN reporting no significant residual. If unable to reach goal, recommend advancing tube to jejunem. Last recorded weight is 151.5 kg which is down from last review. -I/O. Bowel Motility: Last documented BM on 11/13/20 x 1. Labs Reviewed: RBC (3.23), Hgb (9.2), Hct (30.5), Glu (129), BUN (37), Cr (2.20), Na (135), PO4 (4.7) Meds Noted: Norvasc, Coreg, Apresoline, Lantus, Catapres, Reglan, Protonix, Zosyn, Nifirex-150 Additional Notes: Left wrist blister. Ulcers to left heel and left fifth toe. Will continue to monitor with same goal. Nutrition Monitoring and Evaluation: Follow up every Tuesday/Tuesday.
[2020-11-14 13:37] LABS: Albumin 65 %; Creat 24 Hr 1.74 g/24 h (0.50-2.15); Pro/Creat Ratio 8917 mg/g creat (<=114); Total Kappa Chains 1164 mg/24 h; Total Lambda Chains 440 mg/24 h
[2020-11-14 14:06] LABS: Partial Thromboplastin Time 94.7 SECONDS (22.3-36.8)
--- NOTE | 2020-11-14 15:13 | WPDGICN ---
Assessment and Plan Assessment and plan (1) Anoxic brain injury: Code(s): G93.1 - Anoxic brain damage, not elsewhere classified Status: Acute Assessment and Plan: after cardiac arrest ICU talked to family and agreeable to proceed with peg and trach placement we can do egd with peg on Tuesday in the meantime he is receiving tube feeding by OGT (2) Cardiac arrest: Code(s): I46.9 - Cardiac arrest, cause unspecified Status: Acute (3) Acute respiratory failure: Code(s): J96.00 - Acute respiratory failure, unspecified whether with hypoxia or hypercapnia Status: Acute Assessment and Plan: still on mechanical support (4) Aspiration pneumonia: Code(s): J69.0 - Pneumonitis due to inhalation of food and vomit Status: Acute (5) Acute on chronic renal failure: Code(s): N17.9 - Acute kidney failure, unspecified; N18.9 - Chronic kidney disease, unspecified Status: Acute (6) Bacteremia: Code(s): R78.81 - Bacteremia Status: Acute Assessment and Plan: on presentation and on antibiotics ID on board (7) Ulcer of left heel: Code(s): L97.429 - Non-pressure chronic ulcer of left heel and midfoot with unspecified severity Status: Chronic Assessment and Plan: probably original source of infection, surgery on board (8) Morbid obesity: Code(s): E66.01 - Morbid (severe) obesity due to excess calories Status: Acute (9) Obesity hypoventilation syndrome: Code(s): E66.2 - Morbid (severe) obesity with alveolar hypoventilation Status: Acute GI Consult Note Consult date/time: 11/14/20 15:13 Reason for consult: anoxic brain after cardiac arrest, will need PEG placement HPI: Ulices Canas is a 50 year old male with history of morbid obesity, CKD, uncontrolled DM, and LEONIDAS/OHS, previous toe amputation who was admitted initially for evidence of active infection and a black and foul smelling left heel ulcer. He subsequently developed bacteremia growing both Morganella and Proteus in his blood and taken to OR for debridement, then he developed cardiac arrest on 11/01. History obtained from records. After cardiac arrest, intubated and subsequently aspiration pneumonia and change in the neurological status with anoxic brain. CT scan and imaging reviewed. Neurology on board. Finally ICU able to contact family member and decision to proceed with tracheostomy and PEG placement. 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 Chronic kidney disease, stage 3 Baseline creatinine is between 1.7-2.4 Chronic obstructive pulmonary disease Chronic respiratory failure with hypoxia, on home oxygen therapy Congestive heart failure Current use of [facility]p anticoagulation Diabetes mellitus with diabetic nephropathy, with long-term current use of insulin Diabetic peripheral neuropathy Diastolic dysfunction DVT (deep venous thrombosis) Essential hypertension Gastroesophageal reflux disease History of cellulitis Right lower extremity Insulin dependent diabetes mellitus Lipodermatosclerosis of both lower extremities Morbid obesity Obesity hypoventilation syndrome With PFTs demonstrating severe restrictive ventilatory defect on chronic home O2 of 3 L. Obstructive sleep apnea Osteoarthritis Polyuria Surgical History Surgical History Amputation of one or more toes Amputation of the right 4th toe, amputation of the 2nd and 3rd toe of the left foot Family History Family History Father Diabetes mellitus Cerebrovascular accident Mother DVT (deep venous thrombosis) Cerebrovascular accident Sibling Diabetes
--- NOTE | 2020-11-14 16:18 | PM.IMPN ---
Progress Note: A&P Assessment and Plan (1) Acute respiratory failure: Code(s): J96.00 - Acute respiratory failure, unspecified whether with hypoxia or hypercapnia Status: Acute Assessment and Plan: Acute hypoxic, hypercapnic secondary to cardiac arrest, aspiration pneumonia and pulmonary edema. Intubated 11/01 Ventilator settings reviewed. Patient has been tolerating pressure support ventilation 10/5 since 11/12 and his FiO2 is down to 40% Patient is not a candidate for extubation due to poor mental status, morbid obesity, chronic respiratory failure and will not be able to protect his airway. currently he is being evaluated for trach placement. (2) Cardiac arrest: Code(s): I46.9 - Cardiac arrest, cause unspecified Status: Acute Assessment and Plan: Cardiac arrest on 11/01: Etiology unclear, could be secondary to aspiration pneumonia. Patient was found unresponsive on CPAP in his room. Be related to hypercarbia Patient had Dopplers done 2 days ago which were negative for DVT and also was on anticoagulation until day before yesterday making PE unlikely etiology. Patient also was anemic and anticoagulation had to be stopped because of the surgery. Patient also is in acute kidney injury precluding CTA. Patient also morbidly obese and does not fit in our CT scanner -Echocardiogram reviewed. EKG shows sinus rhythm. Serial troponin were negative. monitor tech -Head CT was negative for acute change Patient opening his eyes, withdraws to pain, has brainstem reflexes, Neuro following. (3) Hemoptysis: Code(s): R04.2 - Hemoptysis Status: Acute Assessment and Plan: Appears to have resolved -continue heparin infusion for now for DVT -monitor for rebleeding. (4) Aspiration pneumonia: Code(s): J69.0 - Pneumonitis due to inhalation of food and vomit Status: Acute Assessment and Plan: Sputum and blood cultures. Patient has completed a course of Zosyn from aspiration standpoint but is on antibiotics for his foot wound bacteremia (5) Anoxic brain injury: Code(s): G93.1 - Anoxic brain damage, not elsewhere classified Status: Acute Assessment and Plan: Patient appears to be encephalopathic post code -sedation has been on hold since 11/03. -patient tries to open his eyes but does not blink to threat, positive pupillary, corneal, gag, cough reflex. Patient withdraws his lower extremities to painful stimuli. Patient also has spontaneous breathing on pressure support ventilation -no seizure activity noted clinically -11/06: called and placed patient on a waiting list at [facility] and [facility] in [facility]. 11/11 - [facility] refused to accept the patient -neuro consult reviewed - EEG 11/11 Abnormal record due to the absence of normal background rhythm. There is no evidence of paroxysmal activity throughout the tracing consider the possibility of status. Clinical correlation recommended. These abnormalities could be suggestive of underlying organic or metabolic encephalopathy -neurologically patient has shown some improvement over last few days as he intermittently followed commands yesterday. Moving all 4 extremities to pain. It seems that he does follow commands in frequently and intermittently. Continue to hold sedation and monitoring (6) Diabetic foot infection: Code(s): E11.628 - Type 2 diabetes mellitus with other skin complications; L08.9 - Local infection of the skin and subcutaneous tissue, unspecified Status: Acute Assessment and Plan: x-ray of the foot showed no osteomyelitis. status post debridement ROSA showed no significant arterial occlusive disease vancomycin d/c'd per ID BC-->+Proteus Mirabilis and Morganella morganii ID following, recommendations appreciated Surgery following, recommendations appreciated Continue Zosyn (initiated on 10/30/2020) discussed with Dr. fontanez and he recommends 6 weeks of
--- NOTE | 2020-11-14 17:24 | WPDCN ---
Assessment and Plan Assessment and plan (1) Acute respiratory failure: Code(s): J96.00 - Acute respiratory failure, unspecified whether with hypoxia or hypercapnia Status: Acute Assessment and Plan: Plan is for the operating room next week Tuesday for tracheostomy. Will need a proximal XLT. Risks were discussed per nursing with family. Please make NPO Hold VTE prophylaxis of possible midnight before. HPI Data of Consult Date/Time: 11/14/20 17:24 Requesting Physician: Esha Nugent MD Primary Care Provider: Brennan Whitmore, MD Consult Narrative Narrative: Ulices Canas is a 50 year old male with respiratory failure/insufficiency, ENT consult for tracheostomy placement. 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 Chronic kidney disease, stage 3 Baseline creatinine is between 1.7-2.4 Chronic obstructive pulmonary disease Chronic respiratory failure with hypoxia, on home oxygen therapy Congestive heart failure Current use of group home anticoagulation Diabetes mellitus with diabetic nephropathy, with long-term current use of insulin Diabetic peripheral neuropathy Diastolic dysfunction DVT (deep venous thrombosis) Essential hypertension Gastroesophageal reflux disease History of cellulitis Right lower extremity Insulin dependent diabetes mellitus Lipodermatosclerosis of both lower extremities Morbid obesity Obesity hypoventilation syndrome With PFTs demonstrating severe restrictive ventilatory defect on chronic home O2 of 3 L. Obstructive sleep apnea Osteoarthritis Polyuria Surgical History Surgical History Amputation of one or more toes Amputation of the right 4th toe, amputation of the 2nd and 3rd toe of the left foot Family History Family History Father Diabetes mellitus Cerebrovascular accident Mother DVT (deep venous thrombosis) Cerebrovascular accident Sibling Diabetes mellitus Cerebrovascular accident Social History Social History Social History: The patient has been a resident at [facility] since 2018. He smoked remotely as a young man and quit in 1990. He smoked up to 3 packs per day when he did smoke. He quit drinking alcohol in 1990 but was never a daily drink or heavy drinker. He denies illicit substance use. He is not and has no children. All of his immediate family members are . He is not certain who he would want to name as his surrogate decision maker. At this time he is considered to be a full code. Smoking packs per day: 1.5 Smoking cigarettes per day: 30.0 Years smoked: 15 Smoking pack-years: 22.50 Smoking status: Former smoker Tobacco type: cigarettes Alcohol intake: never Substance use: never Gender identity (if verbalized by the patient): Male Sexual Orientation (if Verbalized by the Patient): Straight or Heterosexual Spiritual care concerns: No Agree to blood products: Yes Meds Home Medications and Allergies Home Medications Medication Instructions Recorded Confirmed Type amlodipine 10 mg PO DAILY 05/15/19 10/28/20 History carvedilol 3.125 mg PO BID 05/15/19 10/28/20 History gabapentin 300 mg PO TID 05/15/19 10/28/20 History Xarelto 2.5 mg PO BID 03/02/20 10/28/20 History acetaminophen 650 mg PO Q4H PRN 03/02/20 10/28/20 History albuterol sulfate 2 puff INHALATION TID PRN 03/02/20 10/28/20 History cetirizine 10 mg PO DAILY 03/02/20 10/28/20 History melatonin 5 mg PO HS 03/02/20 10/28/20 History polysaccharide iron complex 150 mg PO DAILY 03/02/20 10/28/20 History [Poly-Iron] Reynaldo Hernández
[2020-11-14 17:52] LABS: Glucose Point of Care 124 mg/dl (65-105)
[2020-11-14 19:58] LABS: Glucose Point of Care 124 mg/dl (65-105)
[2020-11-14] MEDS: MINERAL OIL/WHITE PETROLATUM OINTMENT 1 APPLIC EACH EYE (20:02)
[2020-11-14 20:03] LABS: Partial Thromboplastin Time 101.7 SECONDS (22.3-36.8)
[2020-11-14] MEDS: INSULIN GLARGINE (*BKC) 100 UNITS/ML 12 UNITS SUB-Q (20:06)
[2020-11-14 23:40] LABS: Glucose Point of Care 126 mg/dl (65-105)
[2020-11-15] VITALS (23 sets, daily range): BP systolic 137–173; BP diastolic 64–105; PULSE 63–83; RESP 13–17; TEMP 37–37.2; O2SAT 90–95
[2020-11-15] MEDS: cloNIDine HCL 0.1 MG TABLET PO ×3 (01:37→18:16)
[2020-11-15 02:13] LABS: Partial Thromboplastin Time 104.2 SECONDS (22.3-36.8)
[2020-11-15 04:31] LABS: Basophils Absolute Auto 0.1 K/mm3 (0.0-0.1); Basophils Percent Auto 0.8 % (0.2-1.2); Eosinophils Absolute Auto 0.8 K/mm3 (0-0.3); Eosinophils Percent Auto 9.1 % (0-4.4); Hematocrit 29.3 % (42.0-52.0); Hemoglobin 8.8 g/dL (14.0-18.0); Immature Granulocyte Absolute 0.05 K/mm3 (0.00-0.031); Immature Granulocyte Percent A 0.6 % (0-0.5); Lymphocytes Absolute Auto 2.11 K/mm3 (0.9-3.2); Lymphocytes Percent Auto 23.8 % (18.3-44.2); Mean Corpuscular Hemoglobin 27.9 pg (26-34); Mean Platelet Volume 11.5 fl (7.4-10.4); Monocytes Absolute Auto 0.9 K/mm3 (0.1-0.6); Monocytes Percent Auto 10.1 % (2.6-8.5); Neutrophils Absolute Auto 4.9 K/mm3 (1.3-6.7); Neutrophils Percent Auto 55.6 % (45.5-73.1); Platelet Count Result 255 k/mm3 (150-375); Red Blood Count 3.15 M/mm3 (4.6-6.20); Red Cell Distribution Width 16.1 % (11.5-14.5); White Blood Count 8.9 K/mm3 (4.5-10.0)
[2020-11-15] MEDS: HEPARIN SOD/D5W 100 UNITS/ML 25,000 UNITS/250 ML BAG 26 UNITS IV CONT ×2 (04:34→14:11)
[2020-11-15 04:45] LABS: Alanine Aminotransferase 182 U/L (4-50); Albumin Level 3.4 g/dL (3.5-5.1); Alkaline Phosphatase 138 U/L (38-126); Anion Gap 6 mmol/L (8-16); Aspartate Amino Transferase 82 U/L (17-59); Bilirubin,Total 0.5 mg/dL (0.2-1.3); Blood Urea Nitrogen 39 mg/dL (9-20); Calcium 8.7 mg/dL (8.4-10.2); Carbon Dioxide 32 mmol/L (22-30); Chloride 101 mmol/L (98-107); Estimated CRCL calculation 57 ml/min; Estimated Glomerular Filt Rate 32; Glucose 131 mg/dL (65-110); Magnesium 1.6 mg/dL (1.6-2.3); Phosphorus 4.7 mg/dL (2.5-4.5); Potassium 3.8 mmol/L (3.4-5.0); Sodium 139 mmol/L (137-145)
[2020-11-15 05:03] LABS: Alveolar/Arterial O2 Gradient 140.1 mmHg; Base Excess ABG 7.4 mEq/l (+/-2.0); Carboxyhemoglobin 0.3 % THb (0-2.0); Fractional Inspired Oxygen 40 %; HCO3 ABG 32.2 mEq/l (22.0-26.0); Methemoglobin ABG 0.4 %THb (0-1.5); Oxygen Content ABG 13.5 %vol (16.0-22.0); Oxygen Saturation ABG 97.3 % (95.0-100.0); Oxyhemoglobin 95.7 % THb (90.0-100.0); PCO2 ABG 46.8 mmHg (35.0-45.0); PO2 ABG 91.3 mmHg (80.0-100.0); PO2 FiO2 Ratio Arterial Blood 2.28 %; Reduced Hemoglobin 3.6 %THb (0-5.0); Total Hemoglobin 9.9 g/dL (12.0-18.0); pH ABG 7.455 (7.350-7.450)
[2020-11-15 05:04] LABS: Device VENTILATOR; Modified Allen's Test Pass; Site Drawn RIGHT RADIAL
[2020-11-15 05:05] LABS: Arterial Blood Gas PEEP 5 cmH2O; Arterial Blood Gas Pressure Support 10 cmH2O; Arterial Blood Gas Vent Mode SPONTANEOUS
[2020-11-15] MEDS: CENTRAL LINE FLUSH 10 ML IV PUSH ×3 (05:57→20:49)
[2020-11-15] MEDS: METOCLOPRAMIDE HCL 10 MG/10 ML SOLN UDC FEED TUBE ×4 (05:57→23:24)
[2020-11-15] MEDS: PANTOPRAZOLE SODIUM IV 40 MG VIAL IV PUSH (08:36)
[2020-11-15] MEDS: hydrALAZINE HCL 25 MG TABLET 50 MG PO ×4 (08:36→20:34)
[2020-11-15] MEDS: amLODIPine BESYLATE 5 MG TABLET 10 MG PO (08:36)
[2020-11-15] MEDS: MINERAL OIL/WHITE PETROLATUM OINTMENT 1 APPLIC EACH EYE ×2 (08:36→20:34)
[2020-11-15] MEDS: carvediloL 12.5 MG TABLET PO ×2 (08:37→20:34)
[2020-11-15] MEDS: POLYSACCHARIDE IRON COMPLEX 150 MG CAPSULE FEED TUBE (08:37)
[2020-11-15] MEDS: TOLNAFTATE 1% POWDER 45 GM BTL 1 APPLIC TOPICAL ×2 (08:38→20:35)
[2020-11-15] MEDS: SOD HYPOCHLORITE 1/4 STRENGTH 473 ML 1 APPLIC TOPICAL ×2 (08:38→20:35)
[2020-11-15] MEDS: EUCERIN CREAM 120 GM JAR 1 APPLIC TOPICAL ×2 (08:38→18:15)
[2020-11-15] MEDS: MICONAZOLE NITRATE 2% CREAM 30 GM TUBE 1 APPLIC TOPICAL ×2 (08:38→20:35)
--- NOTE | 2020-11-15 09:43 | P.PNNP_ITS ---
Progress Note: A&P Assessment and Plan (1) SHAKIRA (acute kidney injury): Code(s): N17.9 - Acute kidney failure, unspecified Status: Acute Assessment and Plan: * relatively stable - higher creatinine new baseline? * most likely due to infection on admission and worsened by cardiac arrest leading to ATN * creatinine is trending down * reasonable urine output * follow electrolytes/repeat labs and UOP (2) Stage 3b chronic kidney disease: Code(s): N18.32 - Chronic kidney disease, stage 3b Status: Chronic Assessment and Plan: * baseline creatinine runs ~ 1.4 - 1.7mg/dl in the last year * however, whenever he is acutely ill, it has risen to as high as 6.0mg/dl * he may have a new baseline creatinine at this point given his recurrent bouts on SHAKIRA/ARF... (3) Polyuria: Code(s): R35.8 - Other polyuria Status: Acute Assessment and Plan: * urine output appears to be stabilizing * concern is that this maybe a manifestation of diabetes insipidus * creatinine stable if not improving * sodium is normal making DI less likely * dilute urine noted but urine sodium high (not c/w DI also) (4) Anoxic brain injury: Code(s): G93.1 - Anoxic brain damage, not elsewhere classified Status: Acute Assessment and Plan: * remains encephalopathic post cardic arrest * sedation on hold since 11/03 * fluctuations in status noted -- sometimes follows commands but not always consistently * previous neurological evaluation noted * follow trend of mental status (5) Acute respiratory failure: Code(s): J96.00 - Acute respiratory failure, unspecified whether with hypoxia or hypercapnia Status: Acute Assessment and Plan: * secondary to cardiac arrest, aspiration pneumonia, and pulmonary edema * complicated by known chronic respiratory failure * continue ventilator support (6) Cardiac arrest: Code(s): I46.9 - Cardiac arrest, cause unspecified Status: Acute Assessment and Plan: * occurred on 11/01/20 * etiology(?) -- aspiration versus hypercarbia versus other.... * Echo results noted * continue supportive therapy (7) Bacteremia: Code(s): R78.81 - Bacteremia Status: Acute Assessment and Plan: * blood cultures with Proteus Mirabilis and Morganella morganii * on 6 week course of antibiotics per ID * repeat cultures negative to date (8) Diabetic foot infection: Code(s): E11.628 - Type 2 diabetes mellitus with other skin complications; L08.9 - Local infection of the skin and subcutaneous tissue, unspecified Status: Acute Assessment and Plan: * x-ray of the foot showed no osteomyelitis * status post debridement * ROSA showed no significant arterial occlusive disease * Surgery and ID following * to complete 6 week course of antibiotics * local wound care (9) Diabetes: Code(s): E11.9 - Type 2 diabetes mellitus without complications Status: Acute Assessment and Plan: * follow accuchecks * on SSI and Lantus Per their discussion with Dr. Acevedo, family wishes to proceed with tracheostomy and G- tube placement on the hope that patient's neurological status will improve with time and ongoing supportive therapy. Will continue to follow. Subjective Date/time seen: 11/15/20 09:43 No new issues or problems noted overnight or earlier this AM; remains on v entilator support with relative stability in respiratory status; otherwise hemodynamically stable as well; no real signi
--- NOTE | 2020-11-15 09:43 | PM.PNNEP ---
Progress Note: A&P Assessment and Plan (1) SHAKIRA (acute kidney injury): Code(s): N17.9 - Acute kidney failure, unspecified Status: Acute Assessment and Plan: relatively stable - higher creatinine new baseline? most likely due to infection on admission and worsened by cardiac arrest leading to ATN creatinine is trending down reasonable urine output follow electrolytes/repeat labs and UOP (2) Stage 3b chronic kidney disease: Code(s): N18.32 - Chronic kidney disease, stage 3b Status: Chronic Assessment and Plan: baseline creatinine runs ~ 1.4 - 1.7mg/dl in the last year however, whenever he is acutely ill, it has risen to as high as 6.0mg/dl he may have a new baseline creatinine at this point given his recurrent bouts on SHAKIRA/ARF... (3) Polyuria: Code(s): R35.8 - Other polyuria Status: Acute Assessment and Plan: urine output appears to be stabilizing concern is that this maybe a manifestation of diabetes insipidus creatinine stable if not improving sodium is normal making DI less likely dilute urine noted but urine sodium high (not c/w DI also) (4) Anoxic brain injury: Code(s): G93.1 - Anoxic brain damage, not elsewhere classified Status: Acute Assessment and Plan: remains encephalopathic post cardic arrest sedation on hold since 11/03 fluctuations in status noted -- sometimes follows commands but not always consistently previous neurological evaluation noted follow trend of mental status (5) Acute respiratory failure: Code(s): J96.00 - Acute respiratory failure, unspecified whether with hypoxia or hypercapnia Status: Acute Assessment and Plan: secondary to cardiac arrest, aspiration pneumonia, and pulmonary edema complicated by known chronic respiratory failure continue ventilator support (6) Cardiac arrest: Code(s): I46.9 - Cardiac arrest, cause unspecified Status: Acute Assessment and Plan: occurred on 11/01/20 etiology(?) -- aspiration versus hypercarbia versus other.... Echo results noted continue supportive therapy (7) Bacteremia: Code(s): R78.81 - Bacteremia Status: Acute Assessment and Plan: blood cultures with Proteus Mirabilis and Morganella morganii on 6 week course of antibiotics per ID repeat cultures negative to date (8) Diabetic foot infection: Code(s): E11.628 - Type 2 diabetes mellitus with other skin complications; L08.9 - Local infection of the skin and subcutaneous tissue, unspecified Status: Acute Assessment and Plan: x-ray of the foot showed no osteomyelitis status post debridement ROSA showed no significant arterial occlusive disease Surgery and ID following to complete 6 week course of antibiotics local wound care (9) Diabetes: Code(s): E11.9 - Type 2 diabetes mellitus without complications Status: Acute Assessment and Plan: follow accuchecks on SSI and Lantus Per their discussion with Dr. Acevedo, family wishes to proceed with tracheostomy and G- tube placement on the hope that patient's neurological status will improve with time and ongoing supportive therapy. Will continue to follow. Subjective Date/time seen: 11/15/20 09:43 No new issues or problems noted overnight or earlier this AM; remains on ventilator support with relative stability in respiratory status; otherwise hemodynamically stable as well; no real significant change noted in the last 24 hours. Exam Narrative: General: WD/WN male intubated and on ventilator Heart: normal S1 and S2; no rub Lungs: coarse breath sounds; decreased at bases Abdomen: obese but soft, nontender, nondistended, positive bowel sounds Extremities: no cyanosis or clubbing; chronic edematous changes Skin: dressings in place; chronic venous dermatitis noted Objective Data Vital Signs Vital Signs: Vital Signs Temp Pulse Resp B
--- NOTE | 2020-11-15 10:00 | WPDINTPN ---
Progress Note: A&P Assessment and Plan (1) Acute respiratory failure: Code(s): J96.00 - Acute respiratory failure, unspecified whether with hypoxia or hypercapnia Status: Acute Assessment and Plan: Secondary to cardiac arrest and aspiration pneumonia. also has pulmonary edema. Intubated 11/01 Ventilator settings reviewed. Patient has been tolerating pressure support ventilation 10/5 since 11/12 which I will continue ABGs reviewed change pressure support ventilation to 10/23 Chest x-ray reviewed -advance ET tube by 2 cm Lasix is now on hold Patient has chronic respiratory failure with severe lungs sick to disease with total lung capacity only 66% Patient is not a candidate for extubation due to poor mental status, morbid obesity, chronic respiratory failure and will not be able to protect his airway (2) Cardiac arrest: Code(s): I46.9 - Cardiac arrest, cause unspecified Status: Acute Assessment and Plan: Cardia arrest on 11/01: Etiology unclear, could be secondary to aspiration pneumonia. Patient was found unresponsive on CPAP in his room. Be related to hypercarbia Patient had Dopplers done 2 days ago which were negative for DVT and also was on anticoagulation until day before yesterday making PE unlikely etiology. Patient also was anemic and anticoagulation had to be stopped because of the surgery. Patient also is in acute kidney injury precluding CTA. 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 Patient has completed a course of Zosyn from aspiration standpoint but is on antibiotics for his foot wound bacteremia (5) Anoxic brain injury: Code(s): G93.1 - Anoxic brain damage, not elsewhere classified Status: Acute Assessment and Plan: Patient appears to be encephalopathic post code patient has completed TTM protocol for 24hrs -sedation has been on hold since 11/03. -patient tries to open his eyes but does not blink to threat, positive pupillary, corneal, gag, cough reflex. Patient also has spontaneous breathing on pressure support ventilation -no seizure activity noted clinically -11/06: called and placed patient on a waiting list at [facility] and [facility] in [facility]. 11/11 - [facility] refused to accept the patient -neuro consult reviewed - EEG 11/11 Abnormal record due to the absence of normal background rhythm. There is no evidence of paroxysmal activity throughout the tracing consider the possibility of status. Clinical correlation recommended. These abnormalities could be suggestive of underlying organic or metabolic encephalopathy -neurologically patient has shown some improvement over last few days as he intermittently followed commands yesterday. Moving all 4 extremities to pain. It seems that he is now following commands intermittently and is showing some improvement. Continue to hold sedation and monitoring (6) Diabetic foot infection: Code(s): E11.628 - Type 2 diabetes mellitus with other skin complications; L08.9 - Local infection of the skin and subcutaneous tissue, unspecified Status: Acute Assessment and Plan: x-ray of the foot showed no osteomyelitis. status post debridement ROSA showed no significant arterial occlusive disease vancomycin d/c'd per ID BC-->+Proteus Mirabilis and Morganella morganii ID following, recommendations ap
[2020-11-15 12:05] LABS: Glucose Point of Care 119 mg/dl (65-105)
[2020-11-15 18:19] LABS: Glucose Point of Care 129 mg/dl (65-105)
[2020-11-15] MEDS: INSULIN GLARGINE (*BKC) 100 UNITS/ML 12 UNITS SUB-Q (20:35)
[2020-11-15 20:59] LABS: Glucose Point of Care 120 mg/dl (65-105)
[2020-11-15 23:31] LABS: Glucose Point of Care 125 mg/dl (65-105)
[2020-11-16] VITALS (22 sets, daily range): BP systolic 103–197; BP diastolic 78–106; PULSE 63–87; RESP 13–17; TEMP 37–37.2; O2SAT 91–98
[2020-11-16] MEDS: HEPARIN SOD/D5W 100 UNITS/ML 25,000 UNITS/250 ML BAG 26 UNITS IV CONT ×3 (00:55→20:20)
[2020-11-16] MEDS: cloNIDine HCL 0.1 MG TABLET PO ×3 (01:59→17:13)
[2020-11-16 04:35] LABS: Alveolar/Arterial O2 Gradient 143.7 mmHg; Base Excess ABG 7.3 mEq/l (+/-2.0); Carboxyhemoglobin 0.3 % THb (0-2.0); Fractional Inspired Oxygen 40 %; HCO3 ABG 32.5 mEq/l (22.0-26.0); Methemoglobin ABG 0.5 %THb (0-1.5); Oxygen Content ABG 14.1 %vol (16.0-22.0); Oxygen Saturation ABG 96.6 % (95.0-100.0); Oxyhemoglobin 95.1 % THb (90.0-100.0); PCO2 ABG 48.9 mmHg (35.0-45.0); PO2 ABG 85.3 mmHg (80.0-100.0); PO2 FiO2 Ratio Arterial Blood 2.13 %; Reduced Hemoglobin 4.1 %THb (0-5.0); Total Hemoglobin 10.5 g/dL (12.0-18.0)
[2020-11-16 04:36] LABS: Device VENTILATOR; Modified Allen's Test Pass; Site Drawn RIGHT RADIAL
[2020-11-16 04:37] LABS: Arterial Blood Gas PEEP 5 cmH2O; Arterial Blood Gas Pressure Support 8 cmH2O; Arterial Blood Gas Vent Mode PRESSURE SUPPORT
[2020-11-16 05:28] LABS: Basophils Absolute Auto 0.1 K/mm3 (0.0-0.1); Eosinophils Absolute Auto 0.9 K/mm3 (0-0.3); Hematocrit 30.2 % (42.0-52.0); Hemoglobin 9.2 g/dL (14.0-18.0); Immature Granulocyte Absolute 0.06 K/mm3 (0.00-0.031); Immature Granulocyte Percent A 0.6 % (0-0.5); Lymphocytes Absolute Auto 1.87 K/mm3 (0.9-3.2); Lymphocytes Percent Auto 19.8 % (18.3-44.2); Mean Corpuscular HGB Conc 30.5 g/dl (32-36); Mean Corpuscular Volume 91.8 fl (80-100); Mean Platelet Volume 11.8 fl (7.4-10.4); Monocytes Absolute Auto 1.1 K/mm3 (0.1-0.6); Monocytes Percent Auto 11.6 % (2.6-8.5); Neutrophils Absolute Auto 5.5 K/mm3 (1.3-6.7); Platelet Count Result 275 k/mm3 (150-375); Red Blood Count 3.29 M/mm3 (4.6-6.20); Red Cell Distribution Width 15.9 % (11.5-14.5); White Blood Count 9.5 K/mm3 (4.5-10.0)
[2020-11-16 05:42] LABS: Alanine Aminotransferase 166 U/L (4-50); Albumin Level 3.6 g/dL (3.5-5.1); Alkaline Phosphatase 145 U/L (38-126); Anion Gap 6 mmol/L (8-16); Aspartate Amino Transferase 76 U/L (17-59); Bilirubin,Total 0.5 mg/dL (0.2-1.3); Blood Urea Nitrogen 34 mg/dL (9-20); Calcium 8.9 mg/dL (8.4-10.2); Carbon Dioxide 33 mmol/L (22-30); Chloride 102 mmol/L (98-107); Estimated CRCL calculation 60 ml/min; Estimated Glomerular Filt Rate 34; Glucose 125 mg/dL (65-110); Magnesium 1.6 mg/dL (1.6-2.3); Phosphorus 4.6 mg/dL (2.5-4.5); Potassium 3.6 mmol/L (3.4-5.0); Sodium 141 mmol/L (137-145)
[2020-11-16 05:43] LABS: Partial Thromboplastin Time 94.6 SECONDS (22.3-36.8)
[2020-11-16] MEDS: CENTRAL LINE FLUSH 10 ML IV PUSH ×3 (06:02→21:12)
[2020-11-16] MEDS: METOCLOPRAMIDE HCL 10 MG/10 ML SOLN UDC FEED TUBE ×3 (06:04→17:12)
[2020-11-16] MEDS: SOD HYPOCHLORITE 1/4 STRENGTH 473 ML 1 APPLIC TOPICAL ×2 (08:54→20:21)
[2020-11-16] MEDS: EUCERIN CREAM 120 GM JAR 1 APPLIC TOPICAL ×2 (08:54→17:13)
[2020-11-16] MEDS: PANTOPRAZOLE SODIUM IV 40 MG VIAL IV PUSH (08:54)
[2020-11-16] MEDS: TOLNAFTATE 1% POWDER 45 GM BTL 1 APPLIC TOPICAL ×2 (08:54→20:21)
[2020-11-16] MEDS: carvediloL 12.5 MG TABLET PO ×2 (08:55→20:21)
[2020-11-16] MEDS: hydrALAZINE HCL 25 MG TABLET 50 MG PO ×4 (08:55→20:20)
[2020-11-16] MEDS: amLODIPine BESYLATE 5 MG TABLET 10 MG PO (08:55)
[2020-11-16] MEDS: MINERAL OIL/WHITE PETROLATUM OINTMENT 1 APPLIC EACH EYE ×2 (08:55→20:21)
[2020-11-16] MEDS: POLYSACCHARIDE IRON COMPLEX 150 MG CAPSULE FEED TUBE (08:55)
[2020-11-16] MEDS: MICONAZOLE NITRATE 2% CREAM 30 GM TUBE 1 APPLIC TOPICAL ×2 (08:56→20:22)
--- NOTE | 2020-11-16 09:15 | WPDINTPN ---
Progress Note: A&P Assessment and Plan (1) Acute respiratory failure: Code(s): J96.00 - Acute respiratory failure, unspecified whether with hypoxia or hypercapnia Status: Acute Assessment and Plan: Secondary to cardiac arrest and aspiration pneumonia. also has pulmonary edema. Intubated 11/01 Ventilator settings reviewed. Patient has been tolerating pressure support ventilation 10/ since 11/12 which I will continue currently he is on 10/23 ABGs reviewed Chest x-ray reviewed and shows no significant change from yesterday Lasix is now on hold Patient has chronic respiratory failure with severe lungs sick to disease with total lung capacity only 66% Patient is not a candidate for extubation due to poor mental status, morbid obesity, chronic respiratory failure and will not be able to protect his airway (2) Cardiac arrest: Code(s): I46.9 - Cardiac arrest, cause unspecified Status: Acute Assessment and Plan: Cardia arrest on 11/01: Etiology unclear, could be secondary to aspiration pneumonia. Patient was found unresponsive on CPAP in his room. Be related to hypercarbia Patient had Dopplers done 2 days ago which were negative for DVT and also was on anticoagulation until day before yesterday making PE unlikely etiology. Patient also was anemic and anticoagulation had to be stopped because of the surgery. Patient also is in acute kidney injury precluding CTA. 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 Patient has completed a course of Zosyn from aspiration standpoint but is on antibiotics for his foot wound bacteremia (5) Anoxic brain injury: Code(s): G93.1 - Anoxic brain damage, not elsewhere classified Status: Acute Assessment and Plan: Patient appears to be encephalopathic post code patient has completed TTM protocol for 24hrs -sedation has been on hold since 11/03. -patient tries to open his eyes but does not blink to threat, positive pupillary, corneal, gag, cough reflex. Patient also has spontaneous breathing on pressure support ventilation -no seizure activity noted clinically -11/06: called and placed patient on a waiting list at [facility] and [facility] in [facility]. 11/11 - [facility] refused to accept the patient -neuro consult reviewed - EEG 11/11 Abnormal record due to the absence of normal background rhythm. There is no evidence of paroxysmal activity throughout the tracing consider the possibility of status. Clinical correlation recommended. These abnormalities could be suggestive of underlying organic or metabolic encephalopathy -neurologically patient has shown some improvement over last few days as he intermittently followed commands yesterday. Moving all 4 extremities to pain. It seems that he is now following commands intermittently and is showing some improvement. Continue to hold sedation and monitoring (6) Diabetic foot infection: Code(s): E11.628 - Type 2 diabetes mellitus with other skin complications; L08.9 - Local infection of the skin and subcutaneous tissue, unspecified Status: Acute Assessment and Plan: x-ray of the foot showed no osteomyelitis. status post debridement ROSA showed no significant arterial occlusive disease vancomycin d/c'd per ID BC-->+Proteus Mirabilis and Morganella morganii ID following, recommendations
[2020-11-16 12:29] LABS: Glucose Point of Care 133 mg/dl (65-105)
--- NOTE | 2020-11-16 13:30 | PM.PNNEP ---
Progress Note: A&P Assessment and Plan (1) SHAKIRA (acute kidney injury): Code(s): N17.9 - Acute kidney failure, unspecified Status: Acute Assessment and Plan: relatively stable - higher creatinine currently his new baseline? most likely due to infection on admission and worsened by cardiac arrest leading to ATN creatinine is trending down reasonable urine output follow electrolytes/repeat labs and UOP (2) Stage 3b chronic kidney disease: Code(s): N18.32 - Chronic kidney disease, stage 3b Status: Chronic Assessment and Plan: baseline creatinine runs ~ 1.4 - 1.7mg/dl in the last year however, whenever he is acutely ill, it has risen to as high as 6.0mg/dl he may have a new baseline creatinine at this point given his recurrent bouts on SHAKIRA/ARF... (3) Polyuria: Code(s): R35.8 - Other polyuria Status: Acute Assessment and Plan: urine output appears to be stabilizing concern is that this maybe a manifestation of diabetes insipidus creatinine stable if not improving sodium is normal making DI less likely dilute urine noted but urine sodium high (not c/w DI also) (4) Anoxic brain injury: Code(s): G93.1 - Anoxic brain damage, not elsewhere classified Status: Acute Assessment and Plan: remains encephalopathic post cardic arrest sedation on hold since 11/03 fluctuations in status noted -- sometimes follows commands but not always consistently previous neurological evaluation noted follow trend of mental status (5) Acute respiratory failure: Code(s): J96.00 - Acute respiratory failure, unspecified whether with hypoxia or hypercapnia Status: Acute Assessment and Plan: secondary to cardiac arrest, aspiration pneumonia, and pulmonary edema complicated by known chronic respiratory failure continue ventilator support noted plans for tracheostomy and eventually PEG will likely need LTACH on discharge (6) Cardiac arrest: Code(s): I46.9 - Cardiac arrest, cause unspecified Status: Acute Assessment and Plan: occurred on 11/01/20 etiology(?) -- aspiration versus hypercarbia versus other.... Echo results noted continue supportive therapy (7) Bacteremia: Code(s): R78.81 - Bacteremia Status: Acute Assessment and Plan: blood cultures with Proteus Mirabilis and Morganella morganii on 6 week course of antibiotics per ID repeat cultures negative to date (8) Diabetic foot infection: Code(s): E11.628 - Type 2 diabetes mellitus with other skin complications; L08.9 - Local infection of the skin and subcutaneous tissue, unspecified Status: Acute Assessment and Plan: x-ray of the foot showed no osteomyelitis status post debridement ROSA showed no significant arterial occlusive disease Surgery and ID following to complete 6 week course of antibiotics local wound care (9) Diabetes: Code(s): E11.9 - Type 2 diabetes mellitus without complications Status: Acute Assessment and Plan: follow accuchecks on SSI and Lantus Not much else to recommend/offer at this time -- ill continue to follow from a distance. Subjective Date/time seen: 11/16/20 13:30 No new issues/events overnight or earlier this AM; remains hemodynamically stable; continues on mechanical ventilation; stable urine output with relatively stability in renal function; no apparent distress; mentation stable if not with some mild improvement. Exam Narrative: General: WD/WN male intubated and on ventilator Heart: normal S1 and S2; no rub Lungs: coarse breath sounds; decreased at bases Abdomen: obese but soft, nontender, nondistended, positive bowel sounds Extremities: no cyanosis or clubbing; chronic edematous changes Skin: dressings in place; chronic venous dermatitis present Objective Data Vital Signs Vital Signs: Vital Signs Temp Pulse Resp BP Pulse Ox 0
--- NOTE | 2020-11-16 13:30 | P.PNNP_ITS ---
Progress Note: A&P Assessment and Plan (1) SHAKIRA (acute kidney injury): Code(s): N17.9 - Acute kidney failure, unspecified Status: Acute Assessment and Plan: * relatively stable - higher creatinine currently his new baseline? * most likely due to infection on admission and worsened by cardiac arrest leading to ATN * creatinine is trending down * reasonable urine output * follow electrolytes/repeat labs and UOP (2) Stage 3b chronic kidney disease: Code(s): N18.32 - Chronic kidney disease, stage 3b Status: Chronic Assessment and Plan: * baseline creatinine runs ~ 1.4 - 1.7mg/dl in the last year * however, whenever he is acutely ill, it has risen to as high as 6.0mg/dl * he may have a new baseline creatinine at this point given his recurrent bouts on SHAKIRA/ARF... (3) Polyuria: Code(s): R35.8 - Other polyuria Status: Acute Assessment and Plan: * urine output appears to be stabilizing * concern is that this maybe a manifestation of diabetes insipidus * creatinine stable if not improving * sodium is normal making DI less likely * dilute urine noted but urine sodium high (not c/w DI also) (4) Anoxic brain injury: Code(s): G93.1 - Anoxic brain damage, not elsewhere classified Status: Acute Assessment and Plan: * remains encephalopathic post cardic arrest * sedation on hold since 11/03 * fluctuations in status noted -- sometimes follows commands but not always consistently * previous neurological evaluation noted * follow trend of mental status (5) Acute respiratory failure: Code(s): J96.00 - Acute respiratory failure, unspecified whether with hypoxia or hypercapnia Status: Acute Assessment and Plan: * secondary to cardiac arrest, aspiration pneumonia, and pulmonary edema * complicated by known chronic respiratory failure * continue ventilator support * noted plans for tracheostomy and eventually PEG * will likely need LTACH on discharge (6) Cardiac arrest: Code(s): I46.9 - Cardiac arrest, cause unspecified Status: Acute Assessment and Plan: * occurred on 11/01/20 * etiology(?) -- aspiration versus hypercarbia versus other.... * Echo results noted * continue supportive therapy (7) Bacteremia: Code(s): R78.81 - Bacteremia Status: Acute Assessment and Plan: * blood cultures with Proteus Mirabilis and Morganella morganii * on 6 week course of antibiotics per ID * repeat cultures negative to date (8) Diabetic foot infection: Code(s): E11.628 - Type 2 diabetes mellitus with other skin complications; L08.9 - Local infection of the skin and subcutaneous tissue, unspecified Status: Acute Assessment and Plan: * x-ray of the foot showed no osteomyelitis * status post debridement * ROSA showed no significant arterial occlusive disease * Surgery and ID following * to complete 6 week course of antibiotics * local wound care (9) Diabetes: Code(s): E11.9 - Type 2 diabetes mellitus without complications Status: Acute Assessment and Plan: * follow accuchecks * on SSI and Lantus Not much else to recommend/offer at this time -- ill continue to follow from a distance. Subjective Date/time seen: 11/16/20 13:30 No new issues/events overnight or earlier this AM; remains hemodynamically stable; continues on mechanical ventilation; stable urine output with relatively stability in renal function; no apparent distress; mentation stable if not with
[2020-11-16 17:12] LABS: Glucose Point of Care 117 mg/dl (65-105)
[2020-11-16] MEDS: hydrALAZINE HCL 20 MG/ML VIAL IV PUSH (18:41)
--- NOTE | 2020-11-16 18:41 | PC.NURSE ---
Hydralazine 20 mg ivp given for blood pressure of 192/92. Will continue to monitor closely.
[2020-11-16 20:28] LABS: Glucose Point of Care 129 mg/dl (65-105)
[2020-11-16] MEDS: INSULIN GLARGINE (*BKC) 100 UNITS/ML 12 UNITS SUB-Q (20:33)
[2020-11-17] VITALS (21 sets, daily range): BP systolic 123–162; BP diastolic 66–87; PULSE 64–84; RESP 13–20; TEMP 36.8–37.1; O2SAT 90–100
[2020-11-17] MEDS: METOCLOPRAMIDE HCL 10 MG/10 ML SOLN UDC FEED TUBE ×3 (02:23→23:19)
[2020-11-17] MEDS: cloNIDine HCL 0.1 MG TABLET PO ×3 (02:24→17:30)
[2020-11-17 04:19] LABS: Alveolar/Arterial O2 Gradient 113.6 mmHg; Base Excess ABG 5.4 mEq/l (+/-2.0); Carboxyhemoglobin 0.3 % THb (0-2.0); Fractional Inspired Oxygen 40 %; Methemoglobin ABG 0.5 %THb (0-1.5); Oxygen Saturation ABG 98.1 % (95.0-100.0); Oxyhemoglobin 96.6 % THb (90.0-100.0); PCO2 ABG 50.4 mmHg (35.0-45.0); PO2 ABG 113.6 mmHg (80.0-100.0); PO2 FiO2 Ratio Arterial Blood 2.84 %; Reduced Hemoglobin 2.6 %THb (0-5.0); Total Hemoglobin 10.9 g/dL (12.0-18.0); pH ABG 7.407 (7.350-7.450)
[2020-11-17 04:21] LABS: Arterial Blood Gas Ventilator rate 20 /MIN; Device VENTILATOR; Modified Allen's Test Pass; Site Drawn LEFT RADIAL
[2020-11-17 04:22] LABS: Arterial Blood Gas PEEP 5 cmH2O; Arterial Blood Gas Vent Mode PRESSURE SUPPORT
[2020-11-17 04:23] LABS: Arterial Blood Gas Pressure Support 8 cmH2O
[2020-11-17] MEDS: CENTRAL LINE FLUSH 10 ML IV PUSH ×3 (05:20→21:09)
[2020-11-17 05:24] LABS: Basophils Absolute Auto 0.1 K/mm3 (0.0-0.1); Basophils Percent Auto 0.8 % (0.2-1.2); Eosinophils Absolute Auto 1.1 K/mm3 (0-0.3); Eosinophils Percent Auto 9.4 % (0-4.4); Hematocrit 31.6 % (42.0-52.0); Hemoglobin 9.3 g/dL (14.0-18.0); Immature Granulocyte Absolute 0.08 K/mm3 (0.00-0.031); Immature Granulocyte Percent A 0.7 % (0-0.5); Lymphocytes Absolute Auto 2.38 K/mm3 (0.9-3.2); Mean Corpuscular HGB Conc 29.4 g/dl (32-36); Mean Corpuscular Hemoglobin 27.6 pg (26-34); Mean Corpuscular Volume 93.8 fl (80-100); Mean Platelet Volume 11.4 fl (7.4-10.4); Monocytes Absolute Auto 1.2 K/mm3 (0.1-0.6); Monocytes Percent Auto 10.4 % (2.6-8.5); Neutrophils Absolute Auto 6.5 K/mm3 (1.3-6.7); Neutrophils Percent Auto 57.7 % (45.5-73.1); Platelet Count Result 283 k/mm3 (150-375); Red Blood Count 3.37 M/mm3 (4.6-6.20); Red Cell Distribution Width 16.1 % (11.5-14.5); White Blood Count 11.3 K/mm3 (4.5-10.0)
[2020-11-17 05:28] LABS: Anion Gap 4 mmol/L (8-16); Blood Urea Nitrogen 37 mg/dL (9-20); Calcium 9.2 mg/dL (8.4-10.2); Carbon Dioxide 34 mmol/L (22-30); Chloride 97 mmol/L (98-107); Estimated CRCL calculation 54 ml/min; Estimated Glomerular Filt Rate 30; Glucose 137 mg/dL (65-110); Potassium 3.5 mmol/L (3.4-5.0); Sodium 135 mmol/L (137-145)
[2020-11-17] MEDS: hydrALAZINE HCL 20 MG/ML VIAL IV PUSH ×2 (05:33→13:11)
[2020-11-17] MEDS: HEPARIN SOD/D5W 100 UNITS/ML 25,000 UNITS/250 ML BAG 26 UNITS IV CONT (05:35)
[2020-11-17 05:43] LABS: Partial Thromboplastin Time 101.7 SECONDS (22.3-36.8)
[2020-11-17 06:38] LABS: Hypochromasia 1+ (NORMAL); Platelet Estimate Adequate (Adequate)
--- NOTE | 2020-11-17 09:04 | WPDINTPN ---
Progress Note: A&P Assessment and Plan (1) Acute respiratory failure: Code(s): J96.00 - Acute respiratory failure, unspecified whether with hypoxia or hypercapnia Status: Acute Assessment and Plan: Secondary to cardiac arrest and aspiration pneumonia. also has pulmonary edema. Intubated 11/01 Ventilator settings reviewed. Patient has been tolerating pressure support ventilation 10/ since 11/12 which I will continue currently he is on 10/23 ABGs reviewed Chest x-ray reviewed and shows no significant change from yesterday Lasix is now on hold Patient has chronic respiratory failure with severe lungs sick to disease with total lung capacity only 66% Patient is not a candidate for extubation due to poor mental status, morbid obesity, generalized weakness, chronic respiratory failure and will not be able to protect his airway Patient is awaiting trach placement (2) Cardiac arrest: Code(s): I46.9 - Cardiac arrest, cause unspecified Status: Acute Assessment and Plan: Cardia arrest on 11/01: Etiology unclear, could be secondary to aspiration pneumonia. Patient was found unresponsive on CPAP in his room. Be related to hypercarbia Patient had Dopplers done 2 days ago which were negative for DVT and also was on anticoagulation until day before yesterday making PE unlikely etiology. Patient also was anemic and anticoagulation had to be stopped because of the surgery. Patient also is in acute kidney injury precluding CTA. 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 Patient has completed a course of Zosyn from aspiration standpoint but is on antibiotics for his foot wound bacteremia (5) Anoxic brain injury: Code(s): G93.1 - Anoxic brain damage, not elsewhere classified Status: Acute Assessment and Plan: Patient appears to be encephalopathic post code patient has completed TTM protocol for 24hrs -sedation has been on hold since 11/03. -patient tries to open his eyes but does not blink to threat, positive pupillary, corneal, gag, cough reflex. Patient also has spontaneous breathing on pressure support ventilation -no seizure activity noted clinically -11/06: called and placed patient on a waiting list at [facility] in [facility]. 11/11 - [facility] refused to accept the patient -neuro consult reviewed - EEG 11/11 Abnormal record due to the absence of normal background rhythm. There is no evidence of paroxysmal activity throughout the tracing consider the possibility of status. Clinical correlation recommended. These abnormalities could be suggestive of underlying organic or metabolic encephalopathy -neurologically patient has shown some improvement over last few days as he intermittently followed commands yesterday. Moving all 4 extremities to pain. It seems that he is now following commands intermittently and is showing some improvement. Continue to hold sedation and monitoring. Patient is still quite weak and unable to raise his hands on commands, he has a cough reflex but is weak (6) Diabetic foot infection: Code(s): E11.628 - Type 2 diabetes mellitus with other skin complications; L08.9 - Local infection of the skin and subcutaneous tissue, unspecified Status: Acute Assessment and Plan: x-ray of the foot showed no osteomyelitis. status post debri
[2020-11-17] MEDS: carvediloL 12.5 MG TABLET PO ×2 (09:26→19:53)
[2020-11-17] MEDS: amLODIPine BESYLATE 5 MG TABLET 10 MG PO (09:26)
[2020-11-17] MEDS: POLYSACCHARIDE IRON COMPLEX 150 MG CAPSULE FEED TUBE (09:26)
[2020-11-17] MEDS: hydrALAZINE HCL 25 MG TABLET 50 MG PO ×3 (09:26→19:53)
[2020-11-17] MEDS: EUCERIN CREAM 120 GM JAR 1 APPLIC TOPICAL ×2 (09:27→17:30)
[2020-11-17] MEDS: TOLNAFTATE 1% POWDER 45 GM BTL 1 APPLIC TOPICAL ×2 (09:27→19:52)
[2020-11-17] MEDS: SOD HYPOCHLORITE 1/4 STRENGTH 473 ML 1 APPLIC TOPICAL ×2 (09:27→19:52)
[2020-11-17] MEDS: MICONAZOLE NITRATE 2% CREAM 30 GM TUBE 1 APPLIC TOPICAL ×2 (09:27→19:52)
[2020-11-17] MEDS: MINERAL OIL/WHITE PETROLATUM OINTMENT 1 APPLIC EACH EYE ×2 (09:27→19:53)
[2020-11-17] MEDS: PANTOPRAZOLE SODIUM IV 40 MG VIAL IV PUSH (09:27)
--- NOTE | 2020-11-17 10:48 | PCDIET ---
ICU Rounding Note: Patient NPO for PEG and tracheostomy. Residuals up to 500mL over weekend. May benefit from PEJ detention. Last recorded weight is 153.3kg which is down from last review. -I/O. Bowel Motility: BM x 1 today. Labs Reviewed: WBC (11.3), RBC (3.37), Hgb (9.3), Hct (31.6), Glu (137), BUN (37), Cr (2.3), Na (135) Meds Noted: Norvasc, Coreg, Catapres, Apresoline, Lantus, Atrovent, Reglan, Protonix, Zosyn, Nifirex-150 Additional Notes: Ulcers to left heel and left fifth toe. Blister to left wrist. Following daily in ICU rounds. Assessing/reassessing every Tuesday/Tuesday.
[2020-11-17 11:56] LABS: Glucose Point of Care 126 mg/dl (65-105)
--- NOTE | 2020-11-17 13:04 | PM.IMHP ---
H&P: HPI History of Present Illness Date/Time: 11/17/20 13:04 50-year-old male history of respiratory failure/ insufficiency presents for tracheostomy. 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 Chronic kidney disease, stage 3 Baseline creatinine is between 1.7-2.4 Chronic obstructive pulmonary disease Chronic respiratory failure with hypoxia, on home oxygen therapy Congestive heart failure Current use of fci anticoagulation Diabetes mellitus with diabetic nephropathy, with long-term current use of insulin Diabetic peripheral neuropathy Diastolic dysfunction DVT (deep venous thrombosis) Essential hypertension Gastroesophageal reflux disease History of cellulitis Right lower extremity Insulin dependent diabetes mellitus Lipodermatosclerosis of both lower extremities Morbid obesity Obesity hypoventilation syndrome With PFTs demonstrating severe restrictive ventilatory defect on chronic home O2 of 3 L. Obstructive sleep apnea Osteoarthritis Polyuria Surgical History Surgical History Amputation of one or more toes Amputation of the right 4th toe, amputation of the 2nd and 3rd toe of the left foot Family History Family History Father Diabetes mellitus Cerebrovascular accident Mother DVT (deep venous thrombosis) Cerebrovascular accident Sibling Diabetes mellitus Cerebrovascular accident Social History Social History Social History: The patient has been a resident at [facility] since 2018. He smoked remotely as a young man and quit in 1990. He smoked up to 3 packs per day when he did smoke. He quit drinking alcohol in 1990 but was never a daily drink or heavy drinker. He denies illicit substance use. He is not and has no children. All of his immediate family members are . He is not certain who he would want to name as his surrogate decision maker. At this time he is considered to be a full code. Smoking packs per day: 1.5 Smoking cigarettes per day: 30.0 Years smoked: 15 Smoking pack-years: 22.50 Smoking status: Former smoker Tobacco type: cigarettes Alcohol intake: never Substance use: never Gender identity (if verbalized by the patient): Male Sexual Orientation (if Verbalized by the Patient): Straight or Heterosexual Spiritual care concerns: No Agree to blood products: Yes Meds Home Medications and Allergies Home Medications Medication Instructions Recorded Confirmed Type amlodipine 10 mg PO DAILY 05/15/19 10/28/20 History carvedilol 3.125 mg PO BID 05/15/19 10/28/20 History gabapentin 300 mg PO TID 05/15/19 10/28/20 History Xarelto 2.5 mg PO BID 03/02/20 10/28/20 History acetaminophen 650 mg PO Q4H PRN 03/02/20 10/28/20 History albuterol sulfate 2 puff INHALATION TID PRN 03/02/20 10/28/20 History cetirizine 10 mg PO DAILY 03/02/20 10/28/20 History melatonin 5 mg PO HS 03/02/20 10/28/20 History polysaccharide iron complex 150 mg PO DAILY 03/02/20 10/28/20 History [Poly-Iron] Lantus U-100 Insulin 20 unit SUBCUT BID #0 ml 03/06/20 10/28/20 Rx furosemide 40 mg tablet 60 mg PO DAILY tablet 09/08/20 10/28/20 History clotrimazole 1 applic TOPICAL BID 30 Days #15 g 09/25/20 10/28/20 Rx diltiazem HCl 120 mg PO QAM 30 Days #30 cap 09/25/20 10/28/20 Rx budesonide-formoterol 2 puff INHALATION Q12H 10/28/20 10/28/20 History collagenase clostridium histo. 1 applic TOPICAL DAILY 10/28/20 10/28/20 History [Santyl] hydrocodone-acetaminophen 1 tablet PO BID PRN 10/28/20 10/28/20 History insulin
[2020-11-17] MEDS: fentaNYL CITRATE INJ (*CRX) 100 MCG/2 ML VIAL 50 MCG IV PUSH (14:59)
[2020-11-17] MEDS: MIDAZOLAM HCL (*CRX) 2 MG/2 ML VIAL 4 MG IV PUSH (14:59)
--- NOTE | 2020-11-17 16:36 | WPDANESEPP ---
Anes - Eval Pre Procedure Procedure: Operation Date: 11/18/20 11:45 Proposed Procedures p Tracheostomy - Anupam Kong MD Date/Time: 11/17/20 16:36 Pre Op Diagnosis: Diabetic foot infection, SHAKIRA Patient Data Age: 50 Gender: M Height: 1.85 m Weight: 153.3 kg Last Vital Signs Temp 98.6 F 11/17/20 16:00 Pulse 70 11/17/20 16:00 Resp 14 11/17/20 16:00 BP 142/70 H 11/17/20 16:00 Pulse Ox 95 11/17/20 16:00 Allergies Allergy/AdvReac Type Severity Reaction Status Date / Time No Known Allergies Allergy Verified 10/28/20 13:31 Home Medications Medication Instructions Recorded Confirmed Type amlodipine 10 mg PO DAILY 05/15/19 10/28/20 History carvedilol 3.125 mg PO BID 05/15/19 10/28/20 History gabapentin 300 mg PO TID 05/15/19 10/28/20 History Xarelto 2.5 mg PO BID 03/02/20 10/28/20 History acetaminophen 650 mg PO Q4H PRN 03/02/20 10/28/20 History albuterol sulfate 2 puff INHALATION TID PRN 03/02/20 10/28/20 History cetirizine 10 mg PO DAILY 03/02/20 10/28/20 History melatonin 5 mg PO HS 03/02/20 10/28/20 History polysaccharide iron complex 150 mg PO DAILY 03/02/20 10/28/20 History [Poly-Iron] Lantus U-100 Insulin 20 unit SUBCUT BID #0 ml 03/06/20 10/28/20 Rx furosemide 40 mg tablet 60 mg PO DAILY tablet 09/08/20 10/28/20 History clotrimazole 1 applic TOPICAL BID 30 Days #15 g 09/25/20 10/28/20 Rx diltiazem HCl 120 mg PO QAM 30 Days #30 cap 09/25/20 10/28/20 Rx budesonide-formoterol 2 puff INHALATION Q12H 10/28/20 10/28/20 History collagenase clostridium histo. 1 applic TOPICAL DAILY 10/28/20 10/28/20 History [Santyl] hydrocodone-acetaminophen 1 tablet PO BID PRN 10/28/20 10/28/20 History insulin lispro [Humalog KwikPen 6 unit SUBCUT TID 10/28/20 10/28/20 History Insulin] Laboratory Tests 11/16/20 11/16/20 11/17/20 17:10 20:25 04:07 WBC RBC Hgb Hct MCV MCH MCHC RDW Plt Count MPV Immature Gran % (Auto) Neut % (Auto) Lymph % (Auto) Coffey % (Auto) Eos % (Auto) Baso % (Auto) Lymph # (Auto) Coffey # (Auto) Eos # (Auto) Baso # (Auto) Abs Immat Gran (auto) Absolute Neuts (auto) Absolute Nucleated RBC Nucleated RBC % Platelet Estimate Hypochromasia APTT Puncture Site Left radial ABG pH 7.407 (7.350-7.450) ABG pCO2 50.4 mmHg H mmHg (35.0-45.0) ABG pO2 113.6 mmHg H mmHg (80.0-100.0) ABG PO2/FiO2 Ratio 2.84 % % ABG HCO3 31.0 mEq/l H mEq/l (22.0-26.0) ABG O2 Saturation 98.1 % % (95.0-100.0) ABG O2 Content 15.0 %vol L %vol (16.0-22.0) ABG Base Excess 5.4 mEq/l mEq/l (+/-2.0) A-a Gradient 113.6 mmHg mmHg Oxyhemoglobin 96.6 % THb % THb (90.0-100.0) Carboxyhemoglobin 0.3 % THb % THb (0-2.0) Methemoglobin 0.5 %THb %THb (0-1.5) Reduced Hemoglobin 2.6 %THb %THb (0-5.0) Total Hemoglobin 10.9 g/dL L g/dL (12.0-18.0) O2 Delivery Device Ventilator O2 Liters/Min Not Reportable Minute Volume Not Reportable Vent Rate 20 /MIN /MIN Vent Mode Pressure support FiO2 40 % % Tidal Volume Not Reportable PEEP 5 cmH2O cmH2O Peak Inspir Pressure Not Reportable Pressure Support 8 cmH2O cmH2O Sodium Potassium Chloride Carbon Dioxide Anion Gap BUN Creatinine Estim Creat Clear Calc Estimated GFR Glucose POC Capillary Glucose 117 mg/dl H mg/dl 129 mg/dl H mg/dl (65-105) (6
[2020-11-17 19:44] LABS: Glucose Point of Care 107 mg/dl (65-105)
[2020-11-17] MEDS: INSULIN GLARGINE (*BKC) 100 UNITS/ML 12 UNITS SUB-Q (19:53)
[2020-11-18] VITALS (19 sets, daily range): BP systolic 103–176; BP diastolic 63–105; PULSE 60–82; RESP 13–20; TEMP 36.3–37.3; O2SAT 90–98
[2020-11-18] MEDS: cloNIDine HCL 0.1 MG TABLET PO ×2 (01:11→17:57)
[2020-11-18 03:23] LABS: Partial Thromboplastin Time 75.1 SECONDS (22.3-36.8)
[2020-11-18] MEDS: METOCLOPRAMIDE HCL 10 MG/10 ML SOLN UDC FEED TUBE ×4 (05:12→23:27)
[2020-11-18] MEDS: CENTRAL LINE FLUSH 10 ML IV PUSH ×3 (05:12→21:15)
[2020-11-18 05:51] LABS: Glucose Point of Care 115 mg/dl (65-105)
[2020-11-18] MEDS: HEPARIN SOD/D5W 100 UNITS/ML 25,000 UNITS/250 ML BAG 26 UNITS IV CONT (06:41)
--- NOTE | 2020-11-18 07:08 | WPDHPUPDATE1 ---
History and Physical Update Update Date/Time: 11/18/20 07:08 History and Physical has been reviewed, including an updated exam of the patient. There are NO changes in the patient's condition. Risks, benefits, and alternatives have been discussed and questions answered. Patient agrees to proceed with procedure.
[2020-11-18] MEDS: MICONAZOLE NITRATE 2% CREAM 30 GM TUBE 1 APPLIC TOPICAL ×2 (08:53→20:04)
[2020-11-18] MEDS: EUCERIN CREAM 120 GM JAR 1 APPLIC TOPICAL ×2 (08:54→17:57)
[2020-11-18] MEDS: SOD HYPOCHLORITE 1/4 STRENGTH 473 ML 1 APPLIC TOPICAL ×2 (08:54→20:04)
[2020-11-18] MEDS: TOLNAFTATE 1% POWDER 45 GM BTL 1 APPLIC TOPICAL ×2 (08:54→20:03)
[2020-11-18] MEDS: PANTOPRAZOLE SODIUM IV 40 MG VIAL IV PUSH (08:54)
--- NOTE | 2020-11-18 09:27 | WPDANESPN ---
Anes - Prog Note Post-Op Date/Time: 11/18/20 09:27 Cardiovascular status: other (patient ventilated and on sedation unable to assess) Respiratory status: other Airway patency: other Mental status: other Post-Op hydration status: other Vital Signs: Last Vital Signs Temp 36.6 C 11/18/20 08:00 Pulse 65 11/18/20 08:00 Resp 14 11/18/20 08:00 BP 146/69 H 11/18/20 08:00 Pulse Ox 96 11/18/20 08:00 Pain Score (VAS): 0 I/O: Intake & Output 11/17/20 11/18/20 11/18/20 23:59 07:59 15:59 Intake Total 50 400 Output Total 750 1100 Balance -700 -700 Laboratory Tests 11/17/20 04:48 11/17/20 04:48 11/17/20 11/17/20 11/18/20 11:55 19:41 02:58 APTT 75.1 H POC Capillary Glucose 126 H 107 H 11/18/20 05:48 APTT POC Capillary Glucose 115 H Patient Feedback: Patient satisfied with anesthetic care.
--- NOTE | 2020-11-18 10:35 | WPDINTPN ---
Progress Note: A&P Assessment and Plan (1) Acute respiratory failure: Code(s): J96.00 - Acute respiratory failure, unspecified whether with hypoxia or hypercapnia Status: Acute Assessment and Plan: Secondary to cardiac arrest and aspiration pneumonia. also has pulmonary edema. Intubated 11/01 Ventilator settings reviewed. Patient has been tolerating pressure support ventilation 10/ since 11/12 which I will continue currently he is on 10/23 ABGs reviewed Chest x-ray reviewed and shows no significant change from yesterday Lasix is now on hold Patient has chronic respiratory failure with severe lungs sick to disease with total lung capacity only 66% Patient is not a candidate for extubation due to poor mental status, morbid obesity, generalized weakness, chronic respiratory failure and will not be able to protect his airway Patient is scheduled for trach placement today (2) Cardiac arrest: Code(s): I46.9 - Cardiac arrest, cause unspecified Status: Acute Assessment and Plan: Cardia arrest on 11/01: Etiology unclear, could be secondary to aspiration pneumonia. Patient was found unresponsive on CPAP in his room. Be related to hypercarbia Patient had Dopplers done 2 days ago which were negative for DVT and also was on anticoagulation until day before yesterday making PE unlikely etiology. Patient also was anemic and anticoagulation had to be stopped because of the surgery. Patient also is in acute kidney injury precluding CTA. 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 Patient has completed a course of Zosyn from aspiration standpoint but is on antibiotics for his foot wound bacteremia (5) Anoxic brain injury: Code(s): G93.1 - Anoxic brain damage, not elsewhere classified Status: Acute Assessment and Plan: Patient appears to be encephalopathic post code patient has completed TTM protocol for 24hrs -sedation has been on hold since 11/03. -patient tries to open his eyes but does not blink to threat, positive pupillary, corneal, gag, cough reflex. Patient also has spontaneous breathing on pressure support ventilation -no seizure activity noted clinically -11/06: called and placed patient on a waiting list at [facility] and [facility] in [facility]. 11/11 - [facility] refused to accept the patient -neuro consult reviewed - EEG 11/11 Abnormal record due to the absence of normal background rhythm. There is no evidence of paroxysmal activity throughout the tracing consider the possibility of status. Clinical correlation recommended. These abnormalities could be suggestive of underlying organic or metabolic encephalopathy -neurologically patient has shown some improvement over last few days as he intermittently followed commands yesterday. Moving all 4 extremities to pain. It seems that he is now following commands intermittently and is showing some improvement. Continue to hold sedation and monitoring. Patient is still quite weak and unable to raise his hands on commands, he has a cough reflex but is weak (6) Diabetic foot infection: Code(s): E11.628 - Type 2 diabetes mellitus with other skin complications; L08.9 - Local infection of the skin and subcutaneous tissue, unspecified Status: Acute Assessment and Plan: x-ray of the foot showed no osteomyelitis. statu
--- NOTE | 2020-11-18 11:31 | WPDANESEPPF ---
Anes - Initial Pre Proc Eval Procedure: Operation Date: 11/18/20 11:45 Proposed Procedures p Tracheostomy - Anupam Kong MD Date/Time: 11/18/20 11:31 Surgeon: Esha Nugent MD Pre Op Diagnosis: Respiratory failure Patient Data Age: 50 Gender: M Height: 1.85 m Weight: 154.1 kg Last Vital Signs Temp 36.6 C 11/18/20 10:00 Pulse 68 11/18/20 10:00 Resp 14 11/18/20 10:00 BP 131/66 11/18/20 10:00 Pulse Ox 96 11/18/20 10:00 Allergies Allergy/AdvReac Type Severity Reaction Status Date / Time No Known Allergies Allergy Verified 10/28/20 13:31 Home Medications Medication Instructions Recorded Confirmed Type amlodipine 10 mg PO DAILY 05/15/19 10/28/20 History carvedilol 3.125 mg PO BID 05/15/19 10/28/20 History gabapentin 300 mg PO TID 05/15/19 10/28/20 History Xarelto 2.5 mg PO BID 03/02/20 10/28/20 History acetaminophen 650 mg PO Q4H PRN 03/02/20 10/28/20 History albuterol sulfate 2 puff INHALATION TID PRN 03/02/20 10/28/20 History cetirizine 10 mg PO DAILY 03/02/20 10/28/20 History melatonin 5 mg PO HS 03/02/20 10/28/20 History polysaccharide iron complex 150 mg PO DAILY 03/02/20 10/28/20 History [Poly-Iron] Lantus U-100 Insulin 20 unit SUBCUT BID #0 ml 03/06/20 10/28/20 Rx furosemide 40 mg tablet 60 mg PO DAILY tablet 09/08/20 10/28/20 History clotrimazole 1 applic TOPICAL BID 30 Days #15 g 09/25/20 10/28/20 Rx diltiazem HCl 120 mg PO QAM 30 Days #30 cap 09/25/20 10/28/20 Rx budesonide-formoterol 2 puff INHALATION Q12H 10/28/20 10/28/20 History collagenase clostridium histo. 1 applic TOPICAL DAILY 10/28/20 10/28/20 History [Santyl] hydrocodone-acetaminophen 1 tablet PO BID PRN 10/28/20 10/28/20 History insulin lispro [Humalog KwikPen 6 unit SUBCUT TID 10/28/20 10/28/20 History Insulin] Laboratory Tests 11/17/20 11/17/20 11/18/20 11:55 19:41 02:58 APTT 75.1 SECONDS H SECONDS (22.3-36.8) POC Capillary Glucose 126 mg/dl H mg/dl 107 mg/dl H mg/dl (65-105) (65-105) 11/18/20 05:48 APTT POC Capillary Glucose 115 mg/dl H mg/dl (65-105) Patient hx anesthesia problems: none Family hx anesthesia problems: none PMFSH Past Medical History Medical History Asthma Chronic anemia 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 Chronic kidney disease, stage 3 Baseline creatinine is between 1.7-2.4 Chronic obstructive pulmonary disease Chronic respiratory failure with hypoxia, on home oxygen therapy Congestive heart failure Current use of alf anticoagulation Diabetes mellitus with diabetic nephropathy, with long-term current use of insulin Diabetic peripheral neuropathy Diastolic dysfunction DVT (deep venous thrombosis) Essential hypertension Gastroesophageal reflux disease History of cellulitis Right lower extremity Insulin dependent diabetes mellitus Lipodermatosclerosis of both lower extremities Morbid obesity Obesity hypoventilation syndrome With PFTs demonstrating severe restrictive ventilatory defect on chronic home O2 of 3 L. Obstructive sleep apnea Osteoarthritis Polyuria Surgical History Surgical History Amputation of one or more toes Amputation of the right 4th toe, amputation of the 2nd and 3rd toe of the left foot Family History Family History Father Diabetes mellitus Cerebrovascular accident Mother DVT (deep venous thrombosis) Cerebrovascular accident Sibling Diabetes mellitus Cerebrovascular accident Social History Social History Social History: The patient has been a resident at [facility] since 2018. He smoked remotely as a young man and quit in 1990. He smoked up to 3 packs per day when he did smoke. He quit drinking alcohol in 1990 but was
--- NOTE | 2020-11-18 11:58 | PC.NURSE ---
1145-PATIENT TAKEN TO SURGERY.
[2020-11-18] MEDS: LIDO 1%/EPINEPHRINE/PF 1:200,000 30 ML VIAL XX (12:02)
--- NOTE | 2020-11-18 12:31 | PCDIET ---
Nutrition Follow-Up Complete: Nutrition Diagnosis: Inadequate oral intake related to oral intubation as evidenced by need for enteral feedings. Nutrition Goal: Patient to meet estimated nutritional needs. Goal in progress. Patient currently NPO for tracheostomy. PEG placed on 11/17/20. Last recorded weight is 154.1 kg which is down from last review. -I/O. Bowel Motility: Last documented BM on 11/17/20 x 1. Labs Reviewed: WBC (11.5), RBC (3.37), Hgb (9.3), Hct (31.6), Glu (115), BUN (37), Cr (2.30), Na (135) Meds Noted: Norvasc, Coreg, Lantus, Reglan, Protonix, Zosyn, Nifirex-150 Additional Notes: No change in skin reported. Will continue to monitor with same goal. Nutrition Monitoring and Evaluation: Follow up every Tuesday/Tuesday.
--- NOTE | 2020-11-18 12:59 | W.PM.PROC2 ---
Procedure Note - Detailed Date of Procedure 11/18/20 Pre-op Diagnosis Respiratory failure Post-op Diagnosis same Procedure Performed Tracheostomy Surgeon Anupam Kong MD Internet Marketing Assistant Mariella Anesthesia general Indications See above Findings Obese neck deep trachea proximal 8 XLT Shiley inserted between tracheal rings 1 and 2 Description of Procedure Patient correctly identified consent verified in ICU. Patient brought to the operating room anesthesia deepened. Patient prepped and draped for the aforementioned procedure. Time-out performed. 2 cc 1% lidocaine with 1 100,000 parts epinephrine injected deep to a pre drawn surgical incision made approximately 6 cm long given the patient's obese habitus. Bovie electrocautery at a setting of 10 on cut utilized to perform the skin incision dissected at excuse nd subcutaneous lipectomy performed given the obese habitus. Dissection carried to the trachea thyroid isthmus using blunt as well as Bovie electrocautery dissection thyroid isthmus split in the midline using Bovie electrocautery at a setting of 15 trachea and cricoid identified as well as skeletonized cricoid hook placed anesthesia lowered cuff inserted 2 1 cm further tracheotomy performed between tracheal rings 1 and 2 8 proximal XLT Shiley inserted anesthesia confirmed end-tidal cricoid hook removed [place] is removed bleeding was X that hemostasis was excellent. For 0 silk sutures placed in the trach corners trach ties placed appropriately tight. Of note the lateral 1 cm bilaterally of the incision was closed with 1 3-0 interrupted Vicryl. Patient had OS tolerated the procedure well blood loss approximately 2-3 cc. There were no immediate complication. Care given back to Anesthesiology and ultimately the ICU. Estimated Blood Loss 2 Urine Output 1,850 Drains No Packing No Pathology none sent Complications No immediate complications Condition stable Disposition ICU
[2020-11-18] MEDS: POLYSACCHARIDE IRON COMPLEX 150 MG CAPSULE FEED TUBE (13:09)
[2020-11-18 13:14] LABS: Glucose Point of Care 104 mg/dl (65-105)
[2020-11-18] MEDS: hydrALAZINE HCL 25 MG TABLET 50 MG PO ×2 (17:57→20:02)
[2020-11-18 18:45] LABS: Glucose Point of Care 102 mg/dl (65-105)
[2020-11-18] MEDS: INSULIN GLARGINE (*BKC) 100 UNITS/ML 12 UNITS SUB-Q (20:03)
[2020-11-18] MEDS: carvediloL 12.5 MG TABLET PO (20:03)
[2020-11-18] MEDS: MINERAL OIL/WHITE PETROLATUM OINTMENT 1 APPLIC EACH EYE (20:04)
[2020-11-18 23:19] LABS: Glucose Point of Care 112 mg/dl (65-105)
[2020-11-19] VITALS (22 sets, daily range): BP systolic 111–173; BP diastolic 60–100; PULSE 62–86; RESP 10–22; TEMP 37.3–37.6; O2SAT 93–100
[2020-11-19] MEDS: cloNIDine HCL 0.1 MG TABLET PO ×3 (01:10→17:12)
[2020-11-19] MEDS: ACETAMINOPHEN 325 MG TABLET 650 MG PO (01:10)
[2020-11-19] MEDS: hydrALAZINE HCL 20 MG/ML VIAL IV PUSH (02:03)
[2020-11-19] MEDS: HEPARIN SOD/D5W 100 UNITS/ML 25,000 UNITS/250 ML BAG 26 UNITS IV CONT (04:23)
[2020-11-19 04:54] LABS: Hematocrit 32.2 % (42.0-52.0); Hemoglobin 9.6 g/dL (14.0-18.0); Mean Corpuscular HGB Conc 29.8 g/dl (32-36); Mean Corpuscular Hemoglobin 28.1 pg (26-34); Mean Corpuscular Volume 94.2 fl (80-100); Mean Platelet Volume 11.7 fl (7.4-10.4); Platelet Count Result 285 k/mm3 (150-375); Red Blood Count 3.42 M/mm3 (4.6-6.20); Red Cell Distribution Width 16.4 % (11.5-14.5); White Blood Count 13.5 K/mm3 (4.5-10.0)
[2020-11-19 05:03] LABS: Alanine Aminotransferase 129 U/L (4-50); Albumin Level 3.8 g/dL (3.5-5.1); Alkaline Phosphatase 169 U/L (38-126); Anion Gap 7 mmol/L (8-16); Aspartate Amino Transferase 77 U/L (17-59); Bilirubin,Total 0.6 mg/dL (0.2-1.3); Blood Urea Nitrogen 37 mg/dL (9-20); Calcium 8.8 mg/dL (8.4-10.2); Carbon Dioxide 30 mmol/L (22-30); Chloride 103 mmol/L (98-107); Estimated CRCL calculation 57 ml/min; Estimated Glomerular Filt Rate 32; Glucose 127 mg/dL (65-110); Magnesium 1.7 mg/dL (1.6-2.3); Potassium 3.5 mmol/L (3.4-5.0); Sodium 140 mmol/L (137-145)
[2020-11-19 05:05] LABS: Partial Thromboplastin Time 73.2 SECONDS (22.3-36.8)
[2020-11-19] MEDS: CENTRAL LINE FLUSH 10 ML IV PUSH ×3 (05:39→21:32)
[2020-11-19] MEDS: METOCLOPRAMIDE HCL 10 MG/10 ML SOLN UDC FEED TUBE ×4 (05:39→23:17)
[2020-11-19] MEDS: POTASSIUM CHLORIDE 20 MEQ PACKET (FOR LIQUID) 40 MEQ FEED TUBE (08:42)
[2020-11-19] MEDS: amLODIPine BESYLATE 5 MG TABLET 10 MG PO (08:43)
[2020-11-19] MEDS: POLYSACCHARIDE IRON COMPLEX 150 MG CAPSULE FEED TUBE (08:44)
[2020-11-19] MEDS: hydrALAZINE HCL 25 MG TABLET 50 MG PO ×4 (08:45→20:17)
[2020-11-19] MEDS: carvediloL 12.5 MG TABLET PO ×2 (08:45→20:17)
[2020-11-19] MEDS: MINERAL OIL/WHITE PETROLATUM OINTMENT 1 APPLIC EACH EYE ×2 (08:46→20:18)
[2020-11-19] MEDS: PANTOPRAZOLE SODIUM IV 40 MG VIAL IV PUSH (08:46)
[2020-11-19] MEDS: TOLNAFTATE 1% POWDER 45 GM BTL 1 APPLIC TOPICAL ×2 (08:49→20:17)
[2020-11-19] MEDS: EUCERIN CREAM 120 GM JAR 1 APPLIC TOPICAL ×2 (08:49→17:13)
[2020-11-19] MEDS: SOD HYPOCHLORITE 1/4 STRENGTH 473 ML 1 APPLIC TOPICAL ×2 (08:49→20:17)
[2020-11-19] MEDS: MICONAZOLE NITRATE 2% CREAM 30 GM TUBE 1 APPLIC TOPICAL ×2 (08:50→20:18)
[2020-11-19] MEDS: LIDOCAINE HCL 1% PF INJ 5 ML VIAL INFILTRATE (10:40)
--- NOTE | 2020-11-19 10:50 | WPDINTPN ---
Progress Note: A&P Assessment and Plan (1) Acute respiratory failure: Code(s): J96.00 - Acute respiratory failure, unspecified whether with hypoxia or hypercapnia Status: Acute Assessment and Plan: Secondary to cardiac arrest and aspiration pneumonia. also has pulmonary edema. Intubated 11/01 tracheostomy 11/18 Ventilator settings reviewed. Patient has been tolerating pressure support ventilation 10/5 since 11/12 which I will continue currently he is on 10/23 ABGs reviewed Chest x-ray reviewed and shows no significant change from yesterday Lasix is now on hold Patient has chronic respiratory failure with severe lungs sick to disease with total lung capacity only 66% Patient is not a candidate for extubation due to poor mental status, morbid obesity, generalized weakness, chronic respiratory failure and will not be able to protect his airway Patient is scheduled for trach placement today (2) Cardiac arrest: Code(s): I46.9 - Cardiac arrest, cause unspecified Status: Acute Assessment and Plan: Cardia arrest on 11/01: Etiology unclear, could be secondary to aspiration pneumonia. Patient was found unresponsive on CPAP in his room. Be related to hypercarbia Patient had Dopplers done 2 days ago which were negative for DVT and also was on anticoagulation until day before yesterday making PE unlikely etiology. Patient also was anemic and anticoagulation had to be stopped because of the surgery. Patient also is in acute kidney injury precluding CTA. Patient also morbidly obese and does not fit in our CT scanner Echocardiogram reviewed EKG shows sinus rhythm Head CT was negative for acute change Serial troponin were negative hospital monitor Patient opening his eyes and following some commands (3) Aspiration pneumonia: Code(s): J69.0 - Pneumonitis due to inhalation of food and vomit Status: Acute Assessment and Plan: Sputum and blood cultures. Patient has completed a course of Zosyn from aspiration standpoint but is on antibiotics for his foot wound bacteremia (4) Anoxic brain injury: Code(s): G93.1 - Anoxic brain damage, not elsewhere classified Status: Acute Assessment and Plan: Patient appears to be encephalopathic post code patient has completed TTM protocol for 24hrs -sedation has been on hold since 11/03. -patient tries to open his eyes but does not blink to threat, positive pupillary, corneal, gag, cough reflex. Patient also has spontaneous breathing on pressure support ventilation -no seizure activity noted clinically -11/06: called and placed patient on a waiting list at [facility] and [facility] in [facility]. 11/11 - [facility] refused to accept the patient -neuro consult reviewed - EEG 11/11 Abnormal record due to the absence of normal background rhythm. There is no evidence of paroxysmal activity throughout the tracing consider the possibility of status. Clinical correlation recommended. These abnormalities could be suggestive of underlying organic or metabolic encephalopathy -neurologically patient has shown some improvement over last few days as he intermittently followed commands yesterday. Moving all 4 extremities to pain. It seems that he is now following commands intermittently and is showing some improvement. Continue to hold sedation and monitoring. Patient is still quite weak and unable to raise his hands on commands, he has a cough reflex but is weak (5) Diabetic foot infection: Code(s): E11.628 - Type 2 diabetes mellitus with other skin complications; L08.9 - Local infection of the skin and subcutaneous tissue, unspecified Status: Acute Assessment and Plan: x-ray of the foot showed no osteomyelitis. status post debridement ROSA showed no significant arterial occlusive disease vancomycin d/c'd per ID BC-->+Proteus Mirabilis and Morganella morganii ID following, recommendations appreciated Surgery following,
--- NOTE | 2020-11-19 11:20 | PCDIET ---
ICU Rounding Note: Tube feedings held overnight for elevated residual. Currently Glucerna 1.2 infusing at 30mL/hr. Recommend continuing to advance tube feedings, holding only for residuals of 500mL or greater or other signs of intolerance. Last recorded weight is 153.2kg which is down from last review. -I/O. Bowel Motility: BM x 1 today. Labs Reviewed: WBC (13.5), RBC (3.42), Hgb (9.6), Hct (32.2), Glu (127), BUN (37), Cr (2.2) Meds Noted: Albuterol, Coreg, Catapres, Novolog, Lantus, KCl, Apresoline, Reglan, Protonix, Zosyn, Niferex-150 Additional Notes: No change in skin reported. Following daily in ICU rounds. Assessing/reassessing every Tuesday/Tuesday.
[2020-11-19] MEDS: APIXABAN 5 MG TABLET 10 MG PO ×2 (11:59→20:17)
[2020-11-19 12:04] LABS: Glucose Point of Care 137 mg/dl (65-105)
[2020-11-19 17:30] LABS: Glucose Point of Care 132 mg/dl (65-105)
[2020-11-19] MEDS: INSULIN GLARGINE (*BKC) 100 UNITS/ML 12 UNITS SUB-Q (20:15)
[2020-11-19 23:07] LABS: Glucose Point of Care 134 mg/dl (65-105)
[2020-11-20] VITALS (22 sets, daily range): BP systolic 120–159; BP diastolic 64–89; PULSE 59–98; RESP 10–20; TEMP 36.5–37.1; O2SAT 93–99
[2020-11-20] MEDS: cloNIDine HCL 0.1 MG TABLET PO ×3 (01:00→17:14)
[2020-11-20 04:05] LABS: Hematocrit 28.3 % (42.0-52.0); Hemoglobin 8.4 g/dL (14.0-18.0); Mean Corpuscular HGB Conc 29.7 g/dl (32-36); Mean Corpuscular Hemoglobin 27.9 pg (26-34); Mean Platelet Volume 11.5 fl (7.4-10.4); Platelet Count Result 253 k/mm3 (150-375); Red Blood Count 3.01 M/mm3 (4.6-6.20); Red Cell Distribution Width 16.9 % (11.5-14.5); White Blood Count 9.6 K/mm3 (4.5-10.0)
[2020-11-20 04:21] LABS: Alanine Aminotransferase 107 U/L (4-50); Albumin Level 3.5 g/dL (3.5-5.1); Alkaline Phosphatase 139 U/L (38-126); Anion Gap 14 mmol/L (8-16); Aspartate Amino Transferase 61 U/L (17-59); Bilirubin,Total 0.4 mg/dL (0.2-1.3); Blood Urea Nitrogen 41 mg/dL (9-20); Calcium 8.7 mg/dL (8.4-10.2); Carbon Dioxide 31 mmol/L (22-30); Chloride 98 mmol/L (98-107); Estimated CRCL calculation 46 ml/min; Estimated Glomerular Filt Rate 25; Glucose 145 mg/dL (65-110); Magnesium 1.8 mg/dL (1.6-2.3); Potassium 3.8 mmol/L (3.4-5.0); Sodium 143 mmol/L (137-145)
[2020-11-20] MEDS: ACETAMINOPHEN 325 MG TABLET 650 MG PO ×2 (05:24→20:18)
[2020-11-20] MEDS: METOCLOPRAMIDE HCL 10 MG/10 ML SOLN UDC FEED TUBE ×4 (05:25→23:24)
[2020-11-20] MEDS: CENTRAL LINE FLUSH 10 ML IV PUSH ×3 (05:25→21:31)
[2020-11-20] MEDS: amLODIPine BESYLATE 5 MG TABLET 10 MG PO (09:24)
[2020-11-20] MEDS: hydrALAZINE HCL 25 MG TABLET 50 MG PO ×4 (09:24→20:15)
[2020-11-20] MEDS: MINERAL OIL/WHITE PETROLATUM OINTMENT 1 APPLIC EACH EYE ×2 (09:25→20:17)
[2020-11-20] MEDS: APIXABAN 5 MG TABLET 10 MG PO ×2 (09:25→20:15)
[2020-11-20] MEDS: carvediloL 12.5 MG TABLET PO ×2 (09:25→20:16)
[2020-11-20] MEDS: POLYSACCHARIDE IRON COMPLEX 150 MG CAPSULE FEED TUBE (09:26)
[2020-11-20] MEDS: SOD HYPOCHLORITE 1/4 STRENGTH 473 ML 1 APPLIC TOPICAL ×2 (09:27→20:16)
[2020-11-20] MEDS: EUCERIN CREAM 120 GM JAR 1 APPLIC TOPICAL ×2 (09:27→17:13)
[2020-11-20] MEDS: PANTOPRAZOLE SODIUM IV 40 MG VIAL IV PUSH (09:27)
[2020-11-20] MEDS: TOLNAFTATE 1% POWDER 45 GM BTL 1 APPLIC TOPICAL ×2 (09:27→20:16)
[2020-11-20] MEDS: MICONAZOLE NITRATE 2% CREAM 30 GM TUBE 1 APPLIC TOPICAL ×2 (09:27→20:16)
--- NOTE | 2020-11-20 11:15 | PCDIET ---
ICU Rounding Note: Patient tolerating Glucerna 1.2 at 50mL/hr goal rate with 100mL water flush every 4 hours. Last recorded weight is 152.4kg which is down from last review. Bowel Motility: Last documented BM on 11/19/20 x 1. Labs Reviewed: Glu (145), BUN (41), Cr (2.7) Meds Noted: Norvasc, Coreg, Catapres, Apresoline, Novolog, Lantus, Reglan, Protonix, Zosyn, Niferex-150 Additional Notes: Integumentary notes reviewed. Following daily in ICU rounds. Assessing/reassessing every Tuesday/Tuesday.
--- NOTE | 2020-11-20 11:24 | WPDINTPN ---
Progress Note: A&P Assessment and Plan (1) Acute respiratory failure: Code(s): J96.00 - Acute respiratory failure, unspecified whether with hypoxia or hypercapnia Status: Acute Assessment and Plan: Secondary to cardiac arrest and aspiration pneumonia. also has pulmonary edema. Intubated 11/01 tracheostomy 11/18 Ventilator settings reviewed. Patient has been tolerating pressure support ventilation and I will continue to wean pressure support Chest x-ray reviewed and shows no significant change from yesterday Lasix is as needed Patient has chronic respiratory failure with severe lungs sick to disease with total lung capacity only 66% Patient is not a candidate for extubation due to poor mental status, morbid obesity, generalized weakness, chronic respiratory failure and will not be able to protect his airway (2) Cardiac arrest: Code(s): I46.9 - Cardiac arrest, cause unspecified Status: Acute Assessment and Plan: Cardia arrest on 11/01: Etiology unclear, could be secondary to aspiration pneumonia. Patient was found unresponsive on CPAP in his room. Be related to hypercarbia Patient had Dopplers done 2 days ago which were negative for DVT and also was on anticoagulation until day before yesterday making PE unlikely etiology. Patient also was anemic and anticoagulation had to be stopped because of the surgery. Patient also is in acute kidney injury precluding CTA. Patient also morbidly obese and does not fit in our CT scanner Echocardiogram reviewed EKG shows sinus rhythm Head CT was negative for acute change Serial troponin were negative surveillance system monitor Patient opening his eyes and following some commands (3) Aspiration pneumonia: Code(s): J69.0 - Pneumonitis due to inhalation of food and vomit Status: Acute Assessment and Plan: Sputum and blood cultures. Patient has completed a course of Zosyn from aspiration standpoint but is on antibiotics for his foot wound bacteremia (4) Anoxic brain injury: Code(s): G93.1 - Anoxic brain damage, not elsewhere classified Status: Acute Assessment and Plan: Patient appears to be encephalopathic post code patient has completed TTM protocol for 24hrs -sedation has been on hold since 11/03. -patient tries to open his eyes but does not blink to threat, positive pupillary, corneal, gag, cough reflex. Patient also has spontaneous breathing on pressure support ventilation -no seizure activity noted clinically -11/06: called and placed patient on a waiting list at [facility] and [facility] in [facility]. 11/11 - [facility] refused to accept the patient -neuro consult reviewed - EEG 11/11 Abnormal record due to the absence of normal background rhythm. There is no evidence of paroxysmal activity throughout the tracing consider the possibility of status. Clinical correlation recommended. These abnormalities could be suggestive of underlying organic or metabolic encephalopathy -neurologically patient has shown some improvement over last few days as he intermittently followed commands yesterday. Moving all 4 extremities to pain. It seems that he is now following commands intermittently and is showing some improvement. Continue to hold sedation and monitoring. Patient is still quite weak and unable to raise his hands on commands, he has a cough reflex but is weak (5) Diabetic foot infection: Code(s): E11.628 - Type 2 diabetes mellitus with other skin complications; L08.9 - Local infection of the skin and subcutaneous tissue, unspecified Status: Acute Assessment and Plan: x-ray of the foot showed no osteomyelitis. status post debridement ROSA showed no significant arterial occlusive disease vancomycin d/c'd per ID BC-->+Proteus Mirabilis and Morganella morganii ID following, recommendations appreciated Surgery following, recommendations appreciated Continue Zosyn (initiated on 10/30/2020) discussed
[2020-11-20 11:53] LABS: Glucose Point of Care 122 mg/dl (65-105)
[2020-11-20 17:13] LABS: Glucose Point of Care 109 mg/dl (65-105)
[2020-11-20] MEDS: INSULIN GLARGINE (*BKC) 100 UNITS/ML 12 UNITS SUB-Q (20:16)
[2020-11-20 23:31] LABS: Glucose Point of Care 126 mg/dl (65-105)
[2020-11-21] VITALS (20 sets, daily range): BP systolic 134–164; BP diastolic 73–85; PULSE 64–85; RESP 9–26; TEMP 36.7–37.1; O2SAT 93–98
[2020-11-21 03:38] LABS: Hematocrit 30.2 % (42.0-52.0); Mean Corpuscular HGB Conc 29.8 g/dl (32-36); Mean Corpuscular Hemoglobin 28.2 pg (26-34); Mean Corpuscular Volume 94.7 fl (80-100); Mean Platelet Volume 11.1 fl (7.4-10.4); Platelet Count Result 256 k/mm3 (150-375); Red Blood Count 3.19 M/mm3 (4.6-6.20); Red Cell Distribution Width 16.2 % (11.5-14.5); White Blood Count 10.2 K/mm3 (4.5-10.0)
[2020-11-21 03:49] LABS: Alanine Aminotransferase 94 U/L (4-50); Albumin Level 3.6 g/dL (3.5-5.1); Alkaline Phosphatase 138 U/L (38-126); Anion Gap 5 mmol/L (8-16); Aspartate Amino Transferase 59 U/L (17-59); Bilirubin,Total 0.4 mg/dL (0.2-1.3); Blood Urea Nitrogen 38 mg/dL (9-20); Calcium 9.2 mg/dL (8.4-10.2); Carbon Dioxide 32 mmol/L (22-30); Chloride 105 mmol/L (98-107); Estimated CRCL calculation 50 ml/min; Estimated Glomerular Filt Rate 27; Glucose 119 mg/dL (65-110); Magnesium 1.8 mg/dL (1.6-2.3); Potassium 3.5 mmol/L (3.4-5.0); Sodium 142 mmol/L (137-145)
[2020-11-21] MEDS: CENTRAL LINE FLUSH 10 ML IV PUSH ×3 (05:02→21:19)
[2020-11-21] MEDS: METOCLOPRAMIDE HCL 10 MG/10 ML SOLN UDC FEED TUBE ×4 (05:02→23:36)
[2020-11-21] MEDS: cloNIDine HCL 0.1 MG TABLET PO ×3 (05:06→17:55)
[2020-11-21] MEDS: amLODIPine BESYLATE 5 MG TABLET 10 MG PO (09:04)
[2020-11-21] MEDS: POLYSACCHARIDE IRON COMPLEX 150 MG CAPSULE FEED TUBE (09:04)
[2020-11-21] MEDS: MICONAZOLE NITRATE 2% CREAM 30 GM TUBE 1 APPLIC TOPICAL ×2 (09:05→20:20)
[2020-11-21] MEDS: carvediloL 12.5 MG TABLET PO ×2 (09:05→20:22)
[2020-11-21] MEDS: hydrALAZINE HCL 25 MG TABLET 50 MG PO ×4 (09:05→20:21)
[2020-11-21] MEDS: APIXABAN 5 MG TABLET 10 MG PO ×2 (09:05→20:22)
[2020-11-21] MEDS: PANTOPRAZOLE SODIUM IV 40 MG VIAL IV PUSH (09:06)
[2020-11-21] MEDS: EUCERIN CREAM 120 GM JAR 1 APPLIC TOPICAL ×2 (09:06→17:55)
[2020-11-21] MEDS: SOD HYPOCHLORITE 1/4 STRENGTH 473 ML 1 APPLIC TOPICAL ×2 (09:06→20:20)
[2020-11-21] MEDS: TOLNAFTATE 1% POWDER 45 GM BTL 1 APPLIC TOPICAL ×2 (09:06→20:20)
--- NOTE | 2020-11-21 11:42 | PCDIET ---
Nutrition Follow-Up Complete: Nutrition Diagnosis: Inadequate oral intake related to oral intubation as evidenced by need for enteral feedings. Nutrition Goal: Patient to meet estimated nutritional needs. Goal not met. Tube feedings held overnight for 750mL residual. MD ordered KUB which showed no evidence of obstruction. Recommend PEG-J, if medically appropriate/feasible. Could otherwise consider jejunostomy and/or supplemental peripheral nutrition. Last recorded weight is 149.6 kg which is down from last review. -I/O. Bowel Motility: BM x 1 today. Labs Reviewed: WBC (10.2), RBC (3.19), Hgb (9.0), Hct (30.2), Glu (119), BUN (38), Cr (2.5) Meds Noted: Protonix, Zosyn, Niferex-150, Reglan, Albuterol, Norvasc, Coreg, Catapres, Apresoline, Lantus, Novolog (not given) Additional Notes: No change in skin reported. Will continue to monitor with same goal. Nutrition Monitoring and Evaluation: Follow up every Tuesday/Tuesday.
[2020-11-21 11:59] LABS: Glucose Point of Care 106 mg/dl (65-105)
--- NOTE | 2020-11-21 13:49 | PM.IMPN ---
Progress Note: A&P Assessment and Plan (1) Acute respiratory failure: Code(s): J96.00 - Acute respiratory failure, unspecified whether with hypoxia or hypercapnia Status: Acute Assessment and Plan: 11/21/20 13:49 patient is a 50-year-old male morbidly obese with history severe lung disease presented with cardiac arrest went into respiratory failure intubated on 10/19 was on ventilator and unable to wean the patient off ventilator and had a tracheostomy on 11/18, unable to provide any review of symptom, waiting transfer to LTAC pending insurance authorization. patient remains clinically stable. (2) Cardiac arrest: Code(s): I46.9 - Cardiac arrest, cause unspecified Status: Acute Assessment and Plan: patient had a cardiac arrest etiology uncertain possibly secondary aspiration pneumonia and hypercapnia. (3) Aspiration pneumonia: Code(s): J69.0 - Pneumonitis due to inhalation of food and vomit Status: Acute Assessment and Plan: patient had been treated with Zosyn and completed a course of 10 days remains clinically stable, blood culture grew Proteus MiraLax Morganella morganii, repeat blood cultures are negative. Subjective Date/time seen: 11/21/20 13:49 patient is a 50-year-old male morbidly obese with history severe lung disease presented with cardiac arrest went into respiratory failure intubated on 10/19 was on ventilator and unable to wean the patient off ventilator and had a tracheostomy on 11/18, unable to provide any review of symptom, waiting transfer to LTAC pending insurance authorization. patient remains clinically stable. Review of Systems Review of Systems: ROS unobtainable: Yes unobtainable due to medical condition Exam Narrative: Patient is comfortable, NAD HEENT: has a trach LUNGS: normal respiratory efforts ABD: distended Lower extremities: no edema SKIN: nonjaundiced Neuro: sedated. Objective Data Vital Signs Vital Signs: Vital Signs - 24 hr 11/20/20 14:00 11/20/20 14:53 11/20/20 16:00 Temperature 97.7 F Pulse Rate 70 74 83 Respiratory Rate 13 13 Blood Pressure 151/74 H 139/68 Pulse Oximetry 97 97 93 11/20/20 17:37 11/20/20 18:00 11/20/20 20:00 Temperature 98.0 F 98.2 F Pulse Rate 98 69 72 Respiratory Rate 14 14 Blood Pressure 145/69 H 159/79 H Pulse Oximetry 97 96 96 11/20/20 20:16 11/20/20 20:40 11/20/20 22:00 Temperature Pulse Rate 72 74 70 Respiratory Rate 17 Blood Pressure 133/89 Pulse Oximetry 97 95 11/20/20 22:51 11/21/20 00:00 11/21/20 02:00 Temperature 98.8 F Pulse Rate 65 64 68 Respiratory Rate 15 16 Blood Pressure 139/79 156/73 H Pulse Oximetry 95 95 94 11/21/20 02:11 11/21/20 04:00 11/21/20 05:51 Temperature 98.1 F Pulse Rate 73 85 65 Respiratory Rate 26 H Blood Pressure 152/77 H Pulse Oximetry 95 97 98 11/21/20 06:00 11/21/20 07:40 11/21/20 08:00 Temperature 98.8 F Pulse Rate 70 65 71 Respiratory Rate 14 9 L Blood Pressure 152/77 H 145/81 H Pulse Oximetry 97 95 96 11/21/20 09:05 11/21/20 10:00 11/21/20 11:19 Temperature Pulse Rate 69 69 68 Respiratory Rate 9 L Blood Pressure 158/75 H Pulse Oximetry 93 94 11/21/20 12:00 Temperature 98.6 F Pulse Rate 68 Respiratory Rate 10 L Blood Pressure 148/78 H Pulse Oximetry 95 Intake/Output Intake/Output: Intake & Output 11/18/20 11/19/20 11/20/20 11/21/20 23:59 23:59 23:59 23:59 Intake Total 840 1844 1794 215 Output Total 4000 1800 1150 2450 [facility] -[address] [place] [address] [phone] Meds/Results Medications: Active Medications Generic Name Dose Route Start Last Admin Trade Name Freq PRN Reason Stop Dose Admin Acetaminophen 650 mg 11/02/20 07:40 11/20/20 20:18 Acetaminophen 325 Mg Tablet PO 650 mg Q4H PRN Administration Fever Albuterol 2.5 mg 11/12/20 09:41 Albuterol Sulfate Neb 2.5 Mg/0.5 Ml Inh INHALATION Q6HRT PRN Wheezing Amlodipine Besylate 10 mg 10/19
--- NOTE | 2020-11-21 14:01 | WPDINTPN ---
Progress Note: A&P Assessment and Plan (1) Acute respiratory failure: Code(s): J96.00 - Acute respiratory failure, unspecified whether with hypoxia or hypercapnia Status: Acute Assessment and Plan: Secondary to cardiac arrest and aspiration pneumonia. also has pulmonary edema. Intubated 11/01 tracheostomy 11/18 Ventilator settings reviewed. Patient has been tolerating pressure support ventilation and I will continue to wean pressure support Chest x-ray reviewed and shows no significant change from yesterday Patient has chronic respiratory failure with severe lungs sick to disease with total lung capacity only 66% Awaiting LTAC placement (2) Cardiac arrest: Code(s): I46.9 - Cardiac arrest, cause unspecified Status: Acute Assessment and Plan: Cardia arrest on 11/01: Etiology unclear, could be secondary to aspiration pneumonia. Patient was found unresponsive on CPAP in his room. Be related to hypercarbia Patient had Dopplers done 2 days ago which were negative for DVT and also was on anticoagulation until day before yesterday making PE unlikely etiology. Patient also was anemic and anticoagulation had to be stopped because of the surgery. Patient also is in acute kidney injury precluding CTA. 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 Patient has completed a course of Zosyn from aspiration standpoint but is on antibiotics for his foot wound bacteremia (4) Anoxic brain injury: Code(s): G93.1 - Anoxic brain damage, not elsewhere classified Status: Acute Assessment and Plan: Patient appears to be encephalopathic post code patient has completed TTM protocol for 24hrs -sedation has been on hold since 11/03. -patient tries to open his eyes but does not blink to threat, positive pupillary, corneal, gag, cough reflex. Patient also has spontaneous breathing on pressure support ventilation -no seizure activity noted clinically -11/06: called and placed patient on a waiting list at [facility] and [facility] in [facility]. 11/11 - [facility] refused to accept the patient -neuro consult reviewed - EEG 11/11 Abnormal record due to the absence of normal background rhythm. There is no evidence of paroxysmal activity throughout the tracing consider the possibility of status. Clinical correlation recommended. These abnormalities could be suggestive of underlying organic or metabolic encephalopathy -neurologically patient has shown some improvement over last few days as he intermittently followed commands yesterday. Moving all 4 extremities to pain. It seems that he is now following commands intermittently and is showing some improvement. Continue to hold sedation and monitoring. Patient is still quite weak and unable to raise his hands on commands, he has a cough reflex but is weak (5) Diabetic foot infection: Code(s): E11.628 - Type 2 diabetes mellitus with other skin complications; L08.9 - Local infection of the skin and subcutaneous tissue, unspecified Status: Acute Assessment and Plan: x-ray of the foot showed no osteomyelitis. status post debridement ROSA showed no significant arterial occlusive disease vancomycin d/c'd per ID BC-->+Proteus Mirabilis and Morganella morganii ID following, recommendations appreciated Surgery following, recommendations appreciated Continue Zosyn (initiated on 10/30/2020) discussed with and he recommends 6 weeks of antibiotic therapy - continue through 12/11 -continue wound care recommendations (6) Diabetes mellitus with diabetic nephropathy
[2020-11-21 18:15] LABS: Glucose Point of Care 112 mg/dl (65-105)
[2020-11-21] MEDS: INSULIN GLARGINE (*BKC) 100 UNITS/ML 12 UNITS SUB-Q (20:22)
[2020-11-21] MEDS: MINERAL OIL/WHITE PETROLATUM OINTMENT 1 APPLIC EACH EYE (20:22)
[2020-11-21 20:34] LABS: Glucose Point of Care 114 mg/dl (65-105)
[2020-11-21 23:47] LABS: Glucose Point of Care 127 mg/dl (65-105)
[2020-11-22] VITALS (23 sets, daily range): BP systolic 127–162; BP diastolic 71–92; PULSE 59–73; RESP 11–17; TEMP 36.6–37.2; O2SAT 92–99
[2020-11-22] MEDS: cloNIDine HCL 0.1 MG TABLET PO ×3 (02:09→18:01)
[2020-11-22] MEDS: CENTRAL LINE FLUSH 10 ML IV PUSH ×3 (06:32→21:00)
[2020-11-22 06:33] LABS: Hemoglobin 8.7 g/dL (14.0-18.0); Mean Corpuscular Hemoglobin 27.8 pg (26-34); Mean Corpuscular Volume 92.7 fl (80-100); Mean Platelet Volume 11.5 fl (7.4-10.4); Platelet Count Result 272 k/mm3 (150-375); Red Blood Count 3.13 M/mm3 (4.6-6.20); Red Cell Distribution Width 16.2 % (11.5-14.5); White Blood Count 10.4 K/mm3 (4.5-10.0)
[2020-11-22] MEDS: METOCLOPRAMIDE HCL 10 MG/10 ML SOLN UDC FEED TUBE ×4 (06:33→23:33)
[2020-11-22 06:46] LABS: Alanine Aminotransferase 81 U/L (4-50); Albumin Level 3.6 g/dL (3.5-5.1); Alkaline Phosphatase 146 U/L (38-126); Anion Gap 7 mmol/L (8-16); Aspartate Amino Transferase 52 U/L (17-59); Bilirubin,Total 0.5 mg/dL (0.2-1.3); Blood Urea Nitrogen 39 mg/dL (9-20); Calcium 9.1 mg/dL (8.4-10.2); Carbon Dioxide 30 mmol/L (22-30); Chloride 105 mmol/L (98-107); Estimated CRCL calculation 50 ml/min; Estimated Glomerular Filt Rate 29; Glucose 133 mg/dL (65-110); Magnesium 1.8 mg/dL (1.6-2.3); Potassium 3.5 mmol/L (3.4-5.0); Sodium 142 mmol/L (137-145)
[2020-11-22] MEDS: POLYSACCHARIDE IRON COMPLEX 150 MG CAPSULE FEED TUBE (08:16)
[2020-11-22] MEDS: amLODIPine BESYLATE 5 MG TABLET 10 MG PO (08:17)
[2020-11-22] MEDS: APIXABAN 5 MG TABLET 10 MG PO ×2 (08:17→20:59)
[2020-11-22] MEDS: carvediloL 12.5 MG TABLET PO ×2 (08:18→20:58)
[2020-11-22] MEDS: hydrALAZINE HCL 25 MG TABLET 50 MG PO ×4 (08:18→20:58)
[2020-11-22] MEDS: MINERAL OIL/WHITE PETROLATUM OINTMENT 1 APPLIC EACH EYE ×2 (08:18→20:59)
[2020-11-22] MEDS: EUCERIN CREAM 120 GM JAR 1 APPLIC TOPICAL ×2 (08:19→18:00)
[2020-11-22] MEDS: PANTOPRAZOLE SODIUM IV 40 MG VIAL IV PUSH (08:19)
[2020-11-22] MEDS: MICONAZOLE NITRATE 2% CREAM 30 GM TUBE 1 APPLIC TOPICAL ×2 (08:19→20:59)
[2020-11-22] MEDS: SOD HYPOCHLORITE 1/4 STRENGTH 473 ML 1 APPLIC TOPICAL ×2 (08:19→20:59)
[2020-11-22] MEDS: TOLNAFTATE 1% POWDER 45 GM BTL 1 APPLIC TOPICAL ×2 (08:19→20:59)
[2020-11-22 12:08] LABS: Glucose Point of Care 120 mg/dl (65-105)
--- NOTE | 2020-11-22 12:51 | PM.IMPN ---
Progress Note: A&P Assessment and Plan (1) Acute respiratory failure: Qualifiers: Respiratory failure complication: hypoxia and hypercapnia Qualified Code(s): J96.01 - Acute respiratory failure with hypoxia; J96.02 - Acute respiratory failure with hypercapnia Code(s): J96.00 - Acute respiratory failure, unspecified whether with hypoxia or hypercapnia Status: Acute Assessment and Plan: Secondary to cardiac arrest and aspiration pneumonia. also has pulmonary edema. Intubated 11/01 tracheostomy 11/18 Ventilator settings reviewed. Patient has been tolerating pressure support ventilation and I will continue to wean pressure support Chest x-ray reviewed and shows no significant change from yesterday Patient has chronic respiratory failure with severe lungs sick to disease with total lung capacity only 66% Awaiting LTAC placement (2) Cardiac arrest: Code(s): I46.9 - Cardiac arrest, cause unspecified Status: Acute Assessment and Plan: Cardia arrest on 11/01: Etiology unclear. Patient was found unresponsive on CPAP in his room. Echocardiogram unrevealing. EKG shows sinus rhythm Head CT was negative for acute change Serial troponin were negative athletic monitor unremarkable Patient opening his eyes and following some commands. Await LTAC placement. (3) Aspiration pneumonia: Qualifiers: Aspiration pneumonia type: unspecified Lung location: unspecified part of lung Code(s): J69.0 - Pneumonitis due to inhalation of food and vomit Status: Acute Assessment and Plan: Patient has completed a course of Zosyn for aspiration but continues for his foot wound with bacteremia (4) Anoxic brain injury: Code(s): G93.1 - Anoxic brain damage, not elsewhere classified Status: Acute Assessment and Plan: Patient appears to be encephalopathic post code patient has completed TTM protocol for 24hrs -sedation has been on hold since 11/03. -patient tries to open his eyes but does not blink to threat, positive pupillary, corneal, gag, cough reflex. Patient also has spontaneous breathing on pressure support ventilation -no seizure activity noted clinically -11/06: called and placed patient on a waiting list at [facility] and [facility] in [facility]. 11/11 - [facility] refused to accept the patient -neuro consult reviewed - EEG 11/11 Abnormal record due to the absence of normal background rhythm. There is no evidence of paroxysmal activity throughout the tracing consider the possibility of status. Clinical correlation recommended. These abnormalities could be suggestive of underlying organic or metabolic encephalopathy -neurologically has shown some improvement (5) Diabetic foot infection: Code(s): E11.628 - Type 2 diabetes mellitus with other skin complications; L08.9 - Local infection of the skin and subcutaneous tissue, unspecified Status: Acute Assessment and Plan: x-ray of the foot showed no osteomyelitis. status post debridement ROSA showed no significant arterial occlusive disease BC-->+Proteus Mirabilis and Morganella morganii ID following, recommendations appreciated Surgery following, recommendations appreciated Continue Zosyn (initiated on 10/30/2020) and continue for 6 weeks per ID recommendations - continue through 12/11/2020 -continue wound care recommendations (6) Diabetes mellitus with diabetic nephropathy, with long-term current use of insulin: Qualifiers: Diabetes mellitus type: type 2 Qualified Code(s): E11.21 - Type 2 diabetes mellitus with diabetic nephropathy; Z79.4 - halfway (current) use of insulin Code(s): E11.21 - Type 2 diabetes mellitus with diabetic nephropathy; Z79.4 - halfway (current) use of insulin Status: Acute Assessment and Plan: Currently on sliding scale insulin. continue Lantus Last A1C 7.5 08/2020 Monitor (7) Obesity hypoventilation syndro
--- NOTE | 2020-11-22 14:33 | WPDINTPN ---
Progress Note: A&P Assessment and Plan (1) Acute respiratory failure: Qualifiers: Respiratory failure complication: hypoxia and hypercapnia Qualified Code(s): J96.01 - Acute respiratory failure with hypoxia; J96.02 - Acute respiratory failure with hypercapnia Code(s): J96.00 - Acute respiratory failure, unspecified whether with hypoxia or hypercapnia Status: Acute Assessment and Plan: Secondary to cardiac arrest and aspiration pneumonia. also has pulmonary edema. Intubated 11/01 tracheostomy 11/18 Ventilator settings reviewed. Patient has been tolerating pressure support ventilation, will continue to wean pressure support ventilation to maintain heart volumes of 450-550ml Chest x-ray reviewed and shows no significant change from yesterday Patient has chronic respiratory failure with severe lungs sick to disease with total lung capacity only 66% Awaiting LTAC placement (2) Cardiac arrest: Code(s): I46.9 - Cardiac arrest, cause unspecified Status: Acute Assessment and Plan: Cardia arrest on 11/01: Etiology unclear, could be secondary to aspiration pneumonia. Patient was found unresponsive on CPAP in his room. Be related to hypercarbia Patient had Dopplers done 2 days ago which were negative for DVT and also was on anticoagulation until day before yesterday making PE unlikely etiology. Patient also was anemic and anticoagulation had to be stopped because of the surgery. Patient also is in acute kidney injury precluding CTA. 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 Patient has completed a course of Zosyn from aspiration standpoint but is on antibiotics for his foot wound bacteremia (4) Anoxic brain injury: Code(s): G93.1 - Anoxic brain damage, not elsewhere classified Status: Acute Assessment and Plan: Patient appears to be encephalopathic post code patient has completed TTM protocol for 24hrs -sedation has been on hold since 11/03. -patient tries to open his eyes but does not blink to threat, positive pupillary, corneal, gag, cough reflex. Patient also has spontaneous breathing on pressure support ventilation -no seizure activity noted clinically -11/06: called and placed patient on a waiting list at [facility] and [facility] in [facility]. 11/11 - [facility] refused to accept the patient -neuro consult reviewed - EEG 11/11 Abnormal record due to the absence of normal background rhythm. There is no evidence of paroxysmal activity throughout the tracing consider the possibility of status. Clinical correlation recommended. These abnormalities could be suggestive of underlying organic or metabolic encephalopathy -neurologically patient has shown some improvement over last few days as he intermittently followed commands yesterday. Moving all 4 extremities to pain. It seems that he is now following commands intermittently and is showing some improvement. Continue to hold sedation and monitoring. Patient is still quite weak and unable to raise his hands on commands, he has a cough reflex but is weak (5) Diabetic foot infection: Code(s): E11.628 - Type 2 diabetes mellitus with other skin complications; L08.9 - Local infection of the skin and subcutaneous tissue, unspecified Status: Acute Assessment and Plan: x-ray of the foot showed no osteomyelitis. status post debridement ROSA showed no significant arterial occlusive disease vancomycin d/c'd per ID BC-->+
[2020-11-22 18:01] LABS: Glucose Point of Care 118 mg/dl (65-105)
[2020-11-22] MEDS: INSULIN GLARGINE (*BKC) 100 UNITS/ML 12 UNITS SUB-Q (20:57)
[2020-11-22 21:11] LABS: Glucose Point of Care 130 mg/dl (65-105)
[2020-11-22 23:43] LABS: Glucose Point of Care 131 mg/dl (65-105)
[2020-11-23] VITALS (24 sets, daily range): BP systolic 116–166; BP diastolic 71–86; PULSE 58–89; RESP 10–17; TEMP 36.3–37; O2SAT 85–97
[2020-11-23] MEDS: cloNIDine HCL 0.1 MG TABLET PO ×3 (01:17→17:15)
[2020-11-23 05:50] LABS: Hemoglobin 8.9 g/dL (14.0-18.0); Mean Corpuscular HGB Conc 29.7 g/dl (32-36); Mean Corpuscular Hemoglobin 28.1 pg (26-34); Mean Corpuscular Volume 94.6 fl (80-100); Mean Platelet Volume 11.2 fl (7.4-10.4); Platelet Count Result 276 k/mm3 (150-375); Red Blood Count 3.17 M/mm3 (4.6-6.20); Red Cell Distribution Width 16.2 % (11.5-14.5); White Blood Count 11.1 K/mm3 (4.5-10.0)
[2020-11-23 06:07] LABS: Alanine Aminotransferase 70 U/L (4-50); Albumin Level 3.6 g/dL (3.5-5.1); Alkaline Phosphatase 142 U/L (38-126); Anion Gap 5 mmol/L (8-16); Aspartate Amino Transferase 48 U/L (17-59); Bilirubin,Total 0.5 mg/dL (0.2-1.3); Blood Urea Nitrogen 41 mg/dL (9-20); Calcium 9.2 mg/dL (8.4-10.2); Carbon Dioxide 33 mmol/L (22-30); Chloride 104 mmol/L (98-107); Estimated CRCL calculation 47 ml/min; Estimated Glomerular Filt Rate 26; Glucose 144 mg/dL (65-110); Magnesium 1.8 mg/dL (1.6-2.3); Potassium 3.6 mmol/L (3.4-5.0); Sodium 142 mmol/L (137-145)
[2020-11-23] MEDS: METOCLOPRAMIDE HCL 10 MG/10 ML SOLN UDC FEED TUBE ×3 (06:10→17:19)
[2020-11-23] MEDS: CENTRAL LINE FLUSH 10 ML IV PUSH ×3 (06:10→21:18)
[2020-11-23] MEDS: amLODIPine BESYLATE 5 MG TABLET 10 MG PO (09:06)
[2020-11-23] MEDS: APIXABAN 5 MG TABLET 10 MG PO ×2 (09:07→20:15)
[2020-11-23] MEDS: carvediloL 12.5 MG TABLET PO ×2 (09:07→20:16)
[2020-11-23] MEDS: hydrALAZINE HCL 25 MG TABLET 50 MG PO ×4 (09:08→20:16)
[2020-11-23] MEDS: MICONAZOLE NITRATE 2% CREAM 30 GM TUBE 1 APPLIC TOPICAL ×2 (09:08→20:16)
[2020-11-23] MEDS: TOLNAFTATE 1% POWDER 45 GM BTL 1 APPLIC TOPICAL ×2 (09:08→20:16)
[2020-11-23] MEDS: MINERAL OIL/WHITE PETROLATUM OINTMENT 1 APPLIC EACH EYE ×2 (09:08→20:15)
[2020-11-23] MEDS: EUCERIN CREAM 120 GM JAR 1 APPLIC TOPICAL ×2 (09:08→17:15)
[2020-11-23] MEDS: SOD HYPOCHLORITE 1/4 STRENGTH 473 ML 1 APPLIC TOPICAL ×2 (09:08→20:16)
[2020-11-23] MEDS: PANTOPRAZOLE SODIUM IV 40 MG VIAL IV PUSH (09:09)
[2020-11-23] MEDS: POLYSACCHARIDE IRON COMPLEX 150 MG CAPSULE FEED TUBE (09:09)
[2020-11-23] MEDS: SODIUM CHLORIDE 0.9% IV 500 ML IV CONT (09:20)
--- NOTE | 2020-11-23 10:50 | PM.IMPN ---
Progress Note: A&P Assessment and Plan (1) Acute respiratory failure: Qualifiers: Respiratory failure complication: hypoxia and hypercapnia Qualified Code(s): J96.01 - Acute respiratory failure with hypoxia; J96.02 - Acute respiratory failure with hypercapnia Code(s): J96.00 - Acute respiratory failure, unspecified whether with hypoxia or hypercapnia Status: Acute Assessment and Plan: Secondary to cardiac arrest and aspiration pneumonia. also has pulmonary edema. Intubated 11/01 tracheostomy 11/18 Ventilator settings reviewed. Patient has been tolerating pressure support ventilation, will continue to wean pressure support ventilation to maintain heart volumes of 450-550ml Chest x-ray reviewed and shows no significant change from yesterday Patient has chronic respiratory failure with severe lungs sick to disease with total lung capacity only 66% Awaiting LTAC placement (2) Cardiac arrest: Code(s): I46.9 - Cardiac arrest, cause unspecified Status: Acute Assessment and Plan: Cardia arrest on 11/01: Etiology unclear, could be secondary to aspiration pneumonia. Patient was found unresponsive on CPAP in his room. Be related to hypercarbia Patient had Dopplers done 2 days ago which were negative for DVT and also was on anticoagulation until day before yesterday making PE unlikely etiology. Patient also was anemic and anticoagulation had to be stopped because of the surgery. Patient also is in acute kidney injury precluding CTA. 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 Patient has completed a course of Zosyn from aspiration standpoint but is on antibiotics for his foot wound bacteremia (4) Anoxic brain injury: Code(s): G93.1 - Anoxic brain damage, not elsewhere classified Status: Acute Assessment and Plan: Patient appears to be encephalopathic post code patient has completed TTM protocol for 24hrs -sedation has been on hold since 11/03. -patient tries to open his eyes but does not blink to threat, positive pupillary, corneal, gag, cough reflex. Patient also has spontaneous breathing on pressure support ventilation -no seizure activity noted clinically -11/06: called and placed patient on a waiting list at [facility] and [facility] in [facility]. 11/11 - [facility] refused to accept the patient -neuro consult reviewed - EEG 11/11 Abnormal record due to the absence of normal background rhythm. There is no evidence of paroxysmal activity throughout the tracing consider the possibility of status. Clinical correlation recommended. These abnormalities could be suggestive of underlying organic or metabolic encephalopathy -continue to monitor for improvement -LTAC when available (5) Diabetic foot infection: Code(s): E11.628 - Type 2 diabetes mellitus with other skin complications; L08.9 - Local infection of the skin and subcutaneous tissue, unspecified Status: Acute Assessment and Plan: x-ray of the foot showed no osteomyelitis. status post debridement ROSA showed no significant arterial occlusive disease vancomycin d/c'd per ID BC-->+Proteus Mirabilis and Morganella morganii ID following, recommendations appreciated Surgery following, recommendations appreciated Continue Zosyn (initiated on 10/30/2020) discussed with and he recommends 6 weeks of antibiotic therapy - continue through 12/11 -continue wound care recommendations (6) Diabetes mellitus with
--- NOTE | 2020-11-23 11:24 | WPDINTPN ---
Progress Note: A&P Assessment and Plan (1) Acute respiratory failure: Qualifiers: Respiratory failure complication: hypoxia and hypercapnia Qualified Code(s): J96.01 - Acute respiratory failure with hypoxia; J96.02 - Acute respiratory failure with hypercapnia Code(s): J96.00 - Acute respiratory failure, unspecified whether with hypoxia or hypercapnia Status: Acute Assessment and Plan: Secondary to cardiac arrest and aspiration pneumonia. also has pulmonary edema. Intubated 11/01 tracheostomy 11/18 Ventilator settings reviewed. Patient has been tolerating pressure support ventilation, will continue to wean pressure support ventilation to maintain tidal volumes of 450-550ml Chest x-ray reviewed and shows no significant change from yesterday Patient has chronic respiratory failure with severe lungs sick to disease with total lung capacity only 66% Awaiting LTAC placement (2) Cardiac arrest: Code(s): I46.9 - Cardiac arrest, cause unspecified Status: Acute Assessment and Plan: Cardia arrest on 11/01: Etiology unclear, could be secondary to aspiration pneumonia. Patient was found unresponsive on CPAP in his room. Be related to hypercarbia Patient had Dopplers done 2 days ago which were negative for DVT and also was on anticoagulation until day before yesterday making PE unlikely etiology. Patient also was anemic and anticoagulation had to be stopped because of the surgery. Patient also is in acute kidney injury precluding CTA. 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 Patient has completed a course of Zosyn from aspiration standpoint but is on antibiotics for his foot wound bacteremia (4) Anoxic brain injury: Code(s): G93.1 - Anoxic brain damage, not elsewhere classified Status: Acute Assessment and Plan: Patient appears to be encephalopathic post code patient has completed TTM protocol for 24hrs -sedation has been on hold since 11/03. -patient tries to open his eyes but does not blink to threat, positive pupillary, corneal, gag, cough reflex. Patient also has spontaneous breathing on pressure support ventilation -no seizure activity noted clinically -11/06: called and placed patient on a waiting list at [facility] and [facility] in [facility]. 11/11 - [facility] refused to accept the patient -neuro consult reviewed - EEG 11/11 Abnormal record due to the absence of normal background rhythm. There is no evidence of paroxysmal activity throughout the tracing consider the possibility of status. Clinical correlation recommended. These abnormalities could be suggestive of underlying organic or metabolic encephalopathy -neurologically patient has shown some improvement over last few days as he intermittently followed commands yesterday. Moving all 4 extremities to pain. It seems that he is now following commands intermittently and is showing some improvement. Continue to hold sedation and monitoring. Patient is still quite weak and unable to raise his hands on commands, he has a cough reflex but is weak (5) Diabetic foot infection: Code(s): E11.628 - Type 2 diabetes mellitus with other skin complications; L08.9 - Local infection of the skin and subcutaneous tissue, unspecified Status: Acute Assessment and Plan: x-ray of the foot showed no osteomyelitis. status post debridement ROSA showed no significant arterial occlusive disease vancomycin d/c'd per ID BC-->+
[2020-11-23 11:37] LABS: Glucose Point of Care 143 mg/dl (65-105)
--- NOTE | 2020-11-23 12:41 | P.PNNP_ITS ---
Progress Note: A&P Assessment and Plan (1) SHAKIRA (acute kidney injury): Code(s): N17.9 - Acute kidney failure, unspecified Status: Acute Assessment and Plan: * relatively stable - higher creatinine currently - is this new baseline? * most likely due to infection on admission and worsened by cardiac arrest leading to ATN * reasonable urine output * follow electrolytes/repeat labs and UOP (2) Stage 3b chronic kidney disease: Code(s): N18.32 - Chronic kidney disease, stage 3b Status: Chronic Assessment and Plan: * baseline creatinine runs ~ 1.4 - 1.7mg/dl in the last year * however, whenever he is acutely ill, it has risen to as high as 6.0mg/dl * he may have a new baseline creatinine at this point given his recurrent bouts on SHAKIRA/ARF... (3) Polyuria: Code(s): R35.8 - Other polyuria Status: Acute Assessment and Plan: * urine output appears to be stabilizing * concern is that this maybe a manifestation of diabetes insipidus * creatinine stable if not improving * sodium is normal making DI less likely * dilute urine noted but urine sodium high (not c/w DI also) (4) Anoxic brain injury: Code(s): G93.1 - Anoxic brain damage, not elsewhere classified Status: Acute Assessment and Plan: * improvement noted -- follows simple commands and able to nod to yes/no questions * was encephalopathic post cardic arrest * off all sedation * previous neurological evaluation noted * follow trend of mental status (5) Acute respiratory failure: Qualifiers: Respiratory failure complication: hypoxia and hypercapnia Qualified Code(s): J96.01 - Acute respiratory failure with hypoxia; J96.02 - Acute respiratory failure with hypercapnia Code(s): J96.00 - Acute respiratory failure, unspecified whether with hypoxia or hypercapnia Status: Acute Assessment and Plan: * secondary to cardiac arrest, aspiration pneumonia, and pulmonary edema * complicated by known chronic respiratory failure * continue ventilator support - s/p tracheostomy and PEG * LTACH on discharge (6) Cardiac arrest: Code(s): I46.9 - Cardiac arrest, cause unspecified Status: Acute Assessment and Plan: * occurred on 11/01/20 * etiology(?) -- aspiration versus hypercarbia versus other.... * Echo results noted * continue supportive therapy (7) Bacteremia: Code(s): R78.81 - Bacteremia Status: Acute Assessment and Plan: * blood cultures with Proteus Mirabilis and Morganella morganii * on 6 week course of antibiotics per ID * repeat cultures negative to date (8) Diabetic foot infection: Code(s): E11.628 - Type 2 diabetes mellitus with other skin complications; L08.9 - Local infection of the skin and subcutaneous tissue, unspecified Status: Acute Assessment and Plan: * x-ray of the foot showed no osteomyelitis * status post debridement * ROSA showed no significant arterial occlusive disease * Surgery and ID following * to complete 6 week course of antibiotics * local wound care (9) Diabetes: Code(s): E11.9 - Type 2 diabetes mellitus without complications Status: Acute Assessment and Plan: * follow accuchecks * on SSI and Lantus Will continue to follow from a distance. Subjective Date/time seen: 11/23/20 12:41 Chart reviewed since last seen -- s/p tracheostomy and PEG tube placement with tentative discharge plan to [facility]; mentation/mental status has improved as he is now
--- NOTE | 2020-11-23 12:41 | PM.PNNEP ---
Progress Note: A&P Assessment and Plan (1) SHAKIRA (acute kidney injury): Code(s): N17.9 - Acute kidney failure, unspecified Status: Acute Assessment and Plan: relatively stable - higher creatinine currently - is this new baseline? most likely due to infection on admission and worsened by cardiac arrest leading to ATN reasonable urine output follow electrolytes/repeat labs and UOP (2) Stage 3b chronic kidney disease: Code(s): N18.32 - Chronic kidney disease, stage 3b Status: Chronic Assessment and Plan: baseline creatinine runs ~ 1.4 - 1.7mg/dl in the last year however, whenever he is acutely ill, it has risen to as high as 6.0mg/dl he may have a new baseline creatinine at this point given his recurrent bouts on SHAKIRA/ARF... (3) Polyuria: Code(s): R35.8 - Other polyuria Status: Acute Assessment and Plan: urine output appears to be stabilizing concern is that this maybe a manifestation of diabetes insipidus creatinine stable if not improving sodium is normal making DI less likely dilute urine noted but urine sodium high (not c/w DI also) (4) Anoxic brain injury: Code(s): G93.1 - Anoxic brain damage, not elsewhere classified Status: Acute Assessment and Plan: improvement noted -- follows simple commands and able to nod to yes/no questions was encephalopathic post cardic arrest off all sedation previous neurological evaluation noted follow trend of mental status (5) Acute respiratory failure: Qualifiers: Respiratory failure complication: hypoxia and hypercapnia Qualified Code(s): J96.01 - Acute respiratory failure with hypoxia; J96.02 - Acute respiratory failure with hypercapnia Code(s): J96.00 - Acute respiratory failure, unspecified whether with hypoxia or hypercapnia Status: Acute Assessment and Plan: secondary to cardiac arrest, aspiration pneumonia, and pulmonary edema complicated by known chronic respiratory failure continue ventilator support - s/p tracheostomy and PEG LTACH on discharge (6) Cardiac arrest: Code(s): I46.9 - Cardiac arrest, cause unspecified Status: Acute Assessment and Plan: occurred on 11/01/20 etiology(?) -- aspiration versus hypercarbia versus other.... Echo results noted continue supportive therapy (7) Bacteremia: Code(s): R78.81 - Bacteremia Status: Acute Assessment and Plan: blood cultures with Proteus Mirabilis and Morganella morganii on 6 week course of antibiotics per ID repeat cultures negative to date (8) Diabetic foot infection: Code(s): E11.628 - Type 2 diabetes mellitus with other skin complications; L08.9 - Local infection of the skin and subcutaneous tissue, unspecified Status: Acute Assessment and Plan: x-ray of the foot showed no osteomyelitis status post debridement ROSA showed no significant arterial occlusive disease Surgery and ID following to complete 6 week course of antibiotics local wound care (9) Diabetes: Code(s): E11.9 - Type 2 diabetes mellitus without complications Status: Acute Assessment and Plan: follow accuchecks on SSI and Lantus Will continue to follow from a distance. Subjective Date/time seen: 11/23/20 12:41 Chart reviewed since last seen -- s/p tracheostomy and PEG tube placement with tentative discharge plan to LTACH; mentation/mental status has improved as he is now following simple commands and able to nod to yes/no questions; he still appears quite weak. Exam Narrative: General: WD/WN trached and on ventilator Heart: normal S1 and S2; no rub Lungs: coarse breath sounds; decreased at bases Abdomen: obese but soft, nontender, nondistended, positive bowel sounds Extremities: no cyanosis or clubbing; chronic edematous changes Skin: dressings in place; chronic venous dermatitis present Objective Data Vital Signs V
[2020-11-23 17:59] LABS: Glucose Point of Care 125 mg/dl (65-105)
[2020-11-23] MEDS: INSULIN GLARGINE (*BKC) 100 UNITS/ML 12 UNITS SUB-Q (20:16)
[2020-11-23 20:20] LABS: Glucose Point of Care 125 mg/dl (65-105)
[2020-11-24] VITALS (22 sets, daily range): BP systolic 123–151; BP diastolic 66–89; PULSE 59–73; RESP 13–21; TEMP 36.1–37.2; O2SAT 89–98
[2020-11-24] MEDS: METOCLOPRAMIDE HCL 10 MG/10 ML SOLN UDC FEED TUBE ×4 (00:21→17:00)
[2020-11-24 00:29] LABS: Glucose Point of Care 117 mg/dl (65-105)
[2020-11-24] MEDS: cloNIDine HCL 0.1 MG TABLET PO ×3 (02:13→17:01)
[2020-11-24] MEDS: CENTRAL LINE FLUSH 10 ML IV PUSH ×3 (05:50→21:54)
[2020-11-24 06:05] LABS: Glucose Point of Care 120 mg/dl (65-105)
[2020-11-24] MEDS: SOD HYPOCHLORITE 1/4 STRENGTH 473 ML 1 APPLIC TOPICAL (08:56)
[2020-11-24] MEDS: TOLNAFTATE 1% POWDER 45 GM BTL 1 APPLIC TOPICAL ×2 (08:56→21:54)
[2020-11-24] MEDS: PANTOPRAZOLE SODIUM IV 40 MG VIAL IV PUSH (08:57)
[2020-11-24] MEDS: carvediloL 12.5 MG TABLET PO ×2 (08:57→21:52)
[2020-11-24] MEDS: hydrALAZINE HCL 25 MG TABLET 50 MG PO ×4 (08:57→21:52)
[2020-11-24] MEDS: EUCERIN CREAM 120 GM JAR 1 APPLIC TOPICAL ×2 (08:57→17:01)
[2020-11-24] MEDS: MICONAZOLE NITRATE 2% CREAM 30 GM TUBE 1 APPLIC TOPICAL ×2 (08:57→21:54)
[2020-11-24] MEDS: MINERAL OIL/WHITE PETROLATUM OINTMENT 1 APPLIC EACH EYE ×2 (08:58→21:53)
[2020-11-24] MEDS: APIXABAN 5 MG TABLET 10 MG PO ×2 (08:58→21:52)
[2020-11-24] MEDS: amLODIPine BESYLATE 5 MG TABLET 10 MG PO (08:58)
[2020-11-24] MEDS: POLYSACCHARIDE IRON COMPLEX 150 MG CAPSULE FEED TUBE (08:58)
[2020-11-24 11:40] LABS: Glucose Point of Care 150 mg/dl (65-105)
--- NOTE | 2020-11-24 12:28 | WPDINTPN ---
Progress Note: A&P Assessment and Plan (1) Acute respiratory failure: Qualifiers: Respiratory failure complication: hypoxia and hypercapnia Qualified Code(s): J96.01 - Acute respiratory failure with hypoxia; J96.02 - Acute respiratory failure with hypercapnia Code(s): J96.00 - Acute respiratory failure, unspecified whether with hypoxia or hypercapnia Status: Acute Assessment and Plan: Secondary to cardiac arrest and aspiration pneumonia. also has pulmonary edema. Intubated 11/01 tracheostomy 11/18 Ventilator settings reviewed. Patient has been tolerating pressure support ventilation, will continue to wean pressure support ventilation to maintain tidal volumes of 450-550ml Chest x-ray reviewed and shows no significant change from yesterday Patient has chronic respiratory failure with severe lungs sick to disease with total lung capacity only 66% Awaiting LTAC placement (2) Cardiac arrest: Code(s): I46.9 - Cardiac arrest, cause unspecified Status: Acute Assessment and Plan: Cardia arrest on 11/01: Etiology unclear, could be secondary to aspiration pneumonia. Patient was found unresponsive on CPAP in his room. Be related to hypercarbia Patient had Dopplers done 2 days ago which were negative for DVT and also was on anticoagulation until day before yesterday making PE unlikely etiology. Patient also was anemic and anticoagulation had to be stopped because of the surgery. Patient also is in acute kidney injury precluding CTA. 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 Patient has completed a course of Zosyn from aspiration standpoint but is on antibiotics for his foot wound bacteremia (4) Anoxic brain injury: Code(s): G93.1 - Anoxic brain damage, not elsewhere classified Status: Acute Assessment and Plan: Patient appears to be encephalopathic post code patient has completed TTM protocol for 24hrs -sedation has been on hold since 11/03. -patient tries to open his eyes but does not blink to threat, positive pupillary, corneal, gag, cough reflex. Patient also has spontaneous breathing on pressure support ventilation -no seizure activity noted clinically -11/06: called and placed patient on a waiting list at [facility] and [facility] in [facility]. 11/11 - [facility] refused to accept the patient -neuro consult reviewed - EEG 11/11 Abnormal record due to the absence of normal background rhythm. There is no evidence of paroxysmal activity throughout the tracing consider the possibility of status. Clinical correlation recommended. These abnormalities could be suggestive of underlying organic or metabolic encephalopathy -neurologically patient has shown some improvement over last few days as he intermittently followed commands yesterday. Moving all 4 extremities to pain. It seems that he is now following commands intermittently and is showing some improvement. Continue to hold sedation and monitoring. Patient is still quite weak and unable to raise his hands on commands, he has a cough reflex but is weak (5) Diabetic foot infection: Code(s): E11.628 - Type 2 diabetes mellitus with other skin complications; L08.9 - Local infection of the skin and subcutaneous tissue, unspecified Status: Acute Assessment and Plan: x-ray of the foot showed no osteomyelitis. status post debridement ROSA showed no significant arterial occlusive disease vancomycin d/c'd per ID BC-->+
--- NOTE | 2020-11-24 14:33 | PM.IMPN ---
Progress Note: A&P Assessment and Plan (1) Acute respiratory failure: Qualifiers: Respiratory failure complication: hypoxia and hypercapnia Qualified Code(s): J96.01 - Acute respiratory failure with hypoxia; J96.02 - Acute respiratory failure with hypercapnia Code(s): J96.00 - Acute respiratory failure, unspecified whether with hypoxia or hypercapnia Status: Acute Assessment and Plan: 11/24/20 14:33 patient is a 50-year-old male morbidly obese with history severe lung disease presented with cardiac arrest went into respiratory failure intubated on 10/19 was on ventilator and unable to wean the patient off ventilator and had a tracheostomy on 11/18, unable to provide any review of symptom, waiting transfer to LTAC pending insurance authorization. patient remains clinically stable. patient remains clinically stable, seen by eclectic doctor and appreciate (2) Cardiac arrest: Code(s): I46.9 - Cardiac arrest, cause unspecified Status: Acute Assessment and Plan: Cardia arrest on 11/01: Etiology unclear, could be secondary to aspiration pneumonia. Patient was found unresponsive on CPAP in his room. Be related to hypercarbia (3) Aspiration pneumonia: Qualifiers: Aspiration pneumonia type: unspecified Lung location: unspecified part of lung Code(s): J69.0 - Pneumonitis due to inhalation of food and vomit Status: Acute Assessment and Plan: Sputum and blood cultures. Patient has completed a course of Zosyn from aspiration standpoint but is on antibiotics for his foot wound bacteremia (4) Anoxic brain injury: Code(s): G93.1 - Anoxic brain damage, not elsewhere classified Status: Acute Assessment and Plan: patient was found unresponsive in his room and had a cardiac arrest etiology is uncertain Subjective Date/time seen: 11/24/20 14:33 patient is a 50-year-old male morbidly obese with history severe lung disease presented with cardiac arrest went into respiratory failure intubated on 10/19 was on ventilator and unable to wean the patient off ventilator and had a tracheostomy on 11/18, unable to provide any review of symptom, waiting transfer to LTAC pending insurance authorization. patient remains clinically stable. patient remains clinically stable, seen by eclectic doctor and appreciate Review of Systems Review of Systems: ROS unobtainable: Yes unobtainable due to medical condition Exam Narrative: Patient is comfortable, NAD HEENT: has a trach LUNGS: normal respiratory efforts ABD: distended Lower extremities: no edema SKIN: nonjaundiced Neuro: sedated. Objective Data Vital Signs Vital Signs: Vital Signs - 24 hr 11/23/20 15:21 11/23/20 16:00 11/23/20 17:28 Temperature 98.2 F Pulse Rate 64 71 66 Respiratory Rate 12 Blood Pressure 152/86 H Pulse Oximetry 93 91 95 11/23/20 18:00 11/23/20 20:00 11/23/20 20:16 Temperature 98.6 F Pulse Rate 89 76 74 Respiratory Rate 15 17 Blood Pressure 149/75 H 164/83 H Pulse Oximetry 97 97 11/23/20 21:04 11/23/20 21:40 11/23/20 21:45 Temperature Pulse Rate 72 Respiratory Rate Blood Pressure Pulse Oximetry 92 85 L 89 L 11/23/20 22:00 11/23/20 23:30 11/24/20 00:00 Temperature 98.6 F Pulse Rate 76 61 59 L Respiratory Rate 16 16 Blood Pressure 138/76 144/72 H Pulse Oximetry 94 95 95 11/24/20 02:00 11/24/20 02:20 11/24/20 04:00 Temperature 99 F Pulse Rate 60 62 64 Respiratory Rate 18 16 Blood Pressure 123/66 142/70 H Pulse Oximetry 94 98 91 11/24/20 05:07 11/24/20 06:00 11/24/20 08:00 Temperature 98.7 F Pulse Rate 70 64 63 Respiratory Rate 16 13 Blood Pressure 144/88 H 147/77 H Pulse Oximetry 95 93 95 11/24/20 08:42 11/24/20 08:57 11/24/20 10:00 Temperature Pulse Rate 63 63 61 Respiratory Rate 15 Blood Pressure 139/73 Pulse Oximetry 96 94 11/24/20 11:08 11/24/20 12:00 11/24/20 14:00 Temperature 98.7 F
[2020-11-24 17:13] LABS: Glucose Point of Care 135 mg/dl (65-105)
[2020-11-24] MEDS: INSULIN GLARGINE (*BKC) 100 UNITS/ML 12 UNITS SUB-Q (21:53)
[2020-11-24 21:57] LABS: Glucose Point of Care 142 mg/dl (65-105)
[2020-11-24 23:57] LABS: Glucose Point of Care 142 mg/dl (65-105)
[2020-11-25] VITALS (22 sets, daily range): BP systolic 128–156; BP diastolic 65–82; PULSE 57–72; RESP 12–20; TEMP 36.6–36.9; O2SAT 90–97
[2020-11-25] MEDS: cloNIDine HCL 0.1 MG TABLET PO ×3 (02:26→18:51)
[2020-11-25] MEDS: CENTRAL LINE FLUSH 10 ML IV PUSH ×3 (05:38→21:38)
[2020-11-25] MEDS: SOD HYPOCHLORITE 1/4 STRENGTH 473 ML 1 APPLIC TOPICAL ×3 (05:38→20:13)
[2020-11-25] MEDS: METOCLOPRAMIDE HCL 10 MG/10 ML SOLN UDC FEED TUBE ×5 (05:38→23:27)
[2020-11-25 06:45] LABS: Glucose Point of Care 144 mg/dl (65-105)
[2020-11-25] MEDS: PANTOPRAZOLE SODIUM IV 40 MG VIAL IV PUSH (09:55)
[2020-11-25] MEDS: POLYSACCHARIDE IRON COMPLEX 150 MG CAPSULE FEED TUBE (09:55)
[2020-11-25] MEDS: MINERAL OIL/WHITE PETROLATUM OINTMENT 1 APPLIC EACH EYE ×2 (09:55→20:13)
[2020-11-25] MEDS: amLODIPine BESYLATE 5 MG TABLET 10 MG PO (09:55)
[2020-11-25] MEDS: APIXABAN 5 MG TABLET 10 MG PO ×2 (09:55→20:13)
[2020-11-25] MEDS: carvediloL 12.5 MG TABLET PO ×2 (09:56→20:12)
[2020-11-25] MEDS: EUCERIN CREAM 120 GM JAR 1 APPLIC TOPICAL ×2 (09:56→16:47)
[2020-11-25] MEDS: hydrALAZINE HCL 25 MG TABLET 50 MG PO ×4 (09:56→20:12)
[2020-11-25 09:57] LABS: Basophils Absolute Auto 0.1 K/mm3 (0.0-0.1); Basophils Percent Auto 0.5 % (0.2-1.2); Eosinophils Absolute Auto 1.1 K/mm3 (0-0.3); Eosinophils Percent Auto 8.2 % (0-4.4); Hematocrit 30.5 % (42.0-52.0); Hemoglobin 9.1 g/dL (14.0-18.0); Immature Granulocyte Absolute 0.09 K/mm3 (0.00-0.031); Immature Granulocyte Percent A 0.7 % (0-0.5); Lymphocytes Absolute Auto 2.14 K/mm3 (0.9-3.2); Lymphocytes Percent Auto 16.6 % (18.3-44.2); Mean Corpuscular HGB Conc 29.8 g/dl (32-36); Mean Corpuscular Hemoglobin 28.1 pg (26-34); Mean Corpuscular Volume 94.1 fl (80-100); Mean Platelet Volume 11.5 fl (7.4-10.4); Monocytes Absolute Auto 0.8 K/mm3 (0.1-0.6); Monocytes Percent Auto 6.2 % (2.6-8.5); Neutrophils Absolute Auto 8.8 K/mm3 (1.3-6.7); Neutrophils Percent Auto 67.8 % (45.5-73.1); Platelet Count Result 268 k/mm3 (150-375); Red Blood Count 3.24 M/mm3 (4.6-6.20); Red Cell Distribution Width 15.9 % (11.5-14.5); White Blood Count 12.9 K/mm3 (4.5-10.0)
[2020-11-25] MEDS: TOLNAFTATE 1% POWDER 45 GM BTL 1 APPLIC TOPICAL ×2 (09:57→20:13)
[2020-11-25] MEDS: MICONAZOLE NITRATE 2% CREAM 30 GM TUBE 1 APPLIC TOPICAL ×2 (09:57→20:13)
[2020-11-25 10:33] LABS: Atypical Lymphocytes Present; Platelet Estimate Adequate (Adequate)
--- NOTE | 2020-11-25 11:40 | PCDIET ---
Nutrition Follow-Up Complete: Nutrition Diagnosis: Inadequate oral intake related to oral intubation as evidenced by need for enteral feedings. Nutrition Goal: Patient to meet estimated nutritional needs. Goal in progress. Patient now tolerating Glucerna 1.2 at 50mL/hr with 30mL water flush every 4 hours. Residuals 300mL and below since last review. Last recorded weight is 147.1 kg which is down from last review. -I/O. Bowel Motility: BM x 1 today. Labs Reviewed: Glu (144) Meds Noted: Norvasc, Coreg, Catapres, Apresoline, Lantus, Protonix, Zosyn, Niferex-150, Reglan Additional Notes: Left index finger blister. Posterior scrotum macerated. Left heel diabetic ulcer. Left fifth toe ulcer. Will continue to monitor with same goal. Nutrition Monitoring and Evaluation: Follow up every Tuesday/Tuesday.
[2020-11-25 12:37] LABS: Glucose Point of Care 143 mg/dl (65-105)
[2020-11-25 13:52] LABS: Anion Gap 8 mmol/L (8-16); Blood Urea Nitrogen 44 mg/dL (9-20); Calcium 9.5 mg/dL (8.4-10.2); Carbon Dioxide 28 mmol/L (22-30); Chloride 106 mmol/L (98-107); Estimated CRCL calculation 51 ml/min; Estimated Glomerular Filt Rate 29; Glucose 157 mg/dL (65-110); Sodium 142 mmol/L (137-145)
[2020-11-25 14:18] LABS: Magnesium 1.7 mg/dL (1.6-2.3); Phosphorus 4.4 mg/dL (2.5-4.5)
--- NOTE | 2020-11-25 15:07 | WPDINTPN ---
Progress Note: A&P Assessment and Plan (1) Acute respiratory failure: Qualifiers: Respiratory failure complication: hypoxia and hypercapnia Qualified Code(s): J96.01 - Acute respiratory failure with hypoxia; J96.02 - Acute respiratory failure with hypercapnia Code(s): J96.00 - Acute respiratory failure, unspecified whether with hypoxia or hypercapnia Status: Acute Assessment and Plan: Secondary to cardiac arrest and aspiration pneumonia. also has pulmonary edema. Intubated 11/01 tracheostomy 11/18 Ventilator settings reviewed. Patient has been tolerating pressure support ventilation, will continue to wean pressure support ventilation to maintain tidal volumes of 450-550ml Chest x-ray reviewed and shows no significant change from yesterday Patient has chronic respiratory failure with severe lungs sick to disease with total lung capacity only 66% Awaiting LTAC placement (2) Cardiac arrest: Code(s): I46.9 - Cardiac arrest, cause unspecified Status: Acute Assessment and Plan: Cardia arrest on 11/01: Etiology unclear, could be secondary to aspiration pneumonia. Patient was found unresponsive on CPAP in his room. Be related to hypercarbia Patient had Dopplers done 2 days ago which were negative for DVT and also was on anticoagulation until day before yesterday making PE unlikely etiology. Patient also was anemic and anticoagulation had to be stopped because of the surgery. Patient also is in acute kidney injury precluding CTA. Patient also morbidly obese and does not fit in our CT scanner Echocardiogram reviewed EKG shows sinus rhythm Head CT was negative for acute change Serial troponin were negative threat monitoring analyst Patient opening his eyes and following some commands (3) Aspiration pneumonia: Qualifiers: Aspiration pneumonia type: unspecified Lung location: unspecified part of lung Code(s): J69.0 - Pneumonitis due to inhalation of food and vomit Status: Acute Assessment and Plan: Sputum and blood cultures. Patient has completed a course of Zosyn from aspiration standpoint but is on antibiotics for his foot wound bacteremia (4) Anoxic brain injury: Code(s): G93.1 - Anoxic brain damage, not elsewhere classified Status: Acute Assessment and Plan: Patient appears to be encephalopathic post code patient has completed TTM protocol for 24hrs -sedation has been on hold since 11/03. -patient tries to open his eyes but does not blink to threat, positive pupillary, corneal, gag, cough reflex. Patient also has spontaneous breathing on pressure support ventilation -no seizure activity noted clinically -11/06: called and placed patient on a waiting list at [facility] and [facility] in [facility]. 11/11 - [facility] refused to accept the patient -neuro consult reviewed - EEG 11/11 Abnormal record due to the absence of normal background rhythm. There is no evidence of paroxysmal activity throughout the tracing consider the possibility of status. Clinical correlation recommended. These abnormalities could be suggestive of underlying organic or metabolic encephalopathy -neurologically patient has shown some improvement over last few days as he intermittently followed commands yesterday. Moving all 4 extremities to pain. It seems that he is now following commands intermittently and is showing some improvement. Continue to hold sedation and monitoring. Patient is still quite weak and unable to raise his hands on commands, he has a cough reflex but is weak (5) Diabetic foot infection: Code(s): E11.628 - Type 2 diabetes mellitus with other skin complications; L08.9 - Local infection of the skin and subcutaneous tissue, unspecified Status: Acute Assessment and Plan: x-ray of the foot showed no osteomyelitis. status post debridement ROSA showed no significant arterial occlusive disease vancomycin d/c'd per ID BC-->+
[2020-11-25 18:59] LABS: Glucose Point of Care 132 mg/dl (65-105)
--- NOTE | 2020-11-25 18:59 | PM.IMPN ---
Progress Note: A&P Assessment and Plan (1) Acute respiratory failure: Qualifiers: Respiratory failure complication: hypoxia and hypercapnia Qualified Code(s): J96.01 - Acute respiratory failure with hypoxia; J96.02 - Acute respiratory failure with hypercapnia Code(s): J96.00 - Acute respiratory failure, unspecified whether with hypoxia or hypercapnia Status: Acute Assessment and Plan: 11/24/20 14:33 patient is a 50-year-old male morbidly obese with history severe lung disease presented with cardiac arrest went into respiratory failure intubated on 10/19 was on ventilator and unable to wean the patient off ventilator and had a tracheostomy on 11/18, unable to provide any review of symptom, waiting transfer to LTAC pending insurance authorization. patient remains clinically stable. 11/25 - able to convey that he is not in acute distress with hand motions; non conversational; still requiring CPAP with PEEP of 5 and 45% FiO2; status post tracheostomy (2) Cardiac arrest: Code(s): I46.9 - Cardiac arrest, cause unspecified Status: Acute Assessment and Plan: Cardia arrest on 11/01: Etiology unclear, could be secondary to aspiration pneumonia. Patient was found unresponsive on CPAP in his room. Be related to hypercarbia (3) Aspiration pneumonia: Qualifiers: Aspiration pneumonia type: unspecified Lung location: unspecified part of lung Code(s): J69.0 - Pneumonitis due to inhalation of food and vomit Status: Acute Assessment and Plan: Sputum and blood cultures. Patient has completed a course of Zosyn from aspiration standpoint but is on antibiotics for his foot wound bacteremia (4) Anoxic brain injury: Code(s): G93.1 - Anoxic brain damage, not elsewhere classified Status: Acute Assessment and Plan: patient was found unresponsive in his room and had a cardiac arrest etiology is uncertain Additional Plan continue Zosyn for foot wound through December 11 continue nightly Lantus 12 units Lasix as needed for grade 2 diastolic dysfunction noted currently waiting on bed placement at long-term facility, and patient is DNR Time Spent With Patient Time with patient: less than 15 minutes Subjective Date/time seen: 11/25/20 18:59 no acute medical complaints, patient able to use hands to convey that he is not in acute distress Review of Systems Review of Systems: lengthy interview not possible given patient medical condition, however patient able to use hands to convey that he is not in acute medical distress Exam Const: General: no acute distress Neck: Neck: no JVD Resp: Other: scattered crackles in all lung russell tracheostomy tube in place, patient has pressure support, with PEEP of 5 and 45% FiO2 Cardio: Rate: regular rate Rhythm: regular rhythm GI: Inspection: non-distended GI Palp: Yes Soft to palpation Objective Data Vital Signs Vital Signs: Vital Signs - 24 hr 11/24/20 19:49 11/24/20 20:00 11/24/20 21:52 Temperature 96.9 F L Pulse Rate 64 65 62 Respiratory Rate 16 Blood Pressure 148/89 H Pulse Oximetry 95 91 11/24/20 22:00 11/24/20 23:08 11/25/20 00:00 Temperature 98.5 F Pulse Rate 62 68 60 Respiratory Rate 15 14 Blood Pressure 137/72 150/80 H Pulse Oximetry 94 95 95 11/25/20 01:45 11/25/20 02:00 11/25/20 04:00 Temperature 98.4 F Pulse Rate 63 60 57 L Respiratory Rate 14 14 Blood Pressure 140/72 144/78 H Pulse Oximetry 91 90 95 11/25/20 05:18 11/25/20 06:00 11/25/20 08:00 Temperature 98.0 F Pulse Rate 58 L 60 60 Respiratory Rate 18 20 Blood Pressure 156/76 H 128/65 Pulse Oximetry 93 93 97 11/25/20 08:59 11/25/20 09:56 11/25/20 10:00 Temperature Pulse Rate 60 60 59 L Respiratory Rate 15 Blood Pressure 153/75 H Pulse Oximetry 97 94 11/25/20 12:00 11/25/20 12:13 11/25/20 14:00 Temperature 98.4 F Pulse Rate 60 60 61 Respiratory Rate 12 12 Blood
[2020-11-25] MEDS: ACETAMINOPHEN 325 MG TABLET 650 MG PO (20:11)
[2020-11-25] MEDS: INSULIN GLARGINE (*BKC) 100 UNITS/ML 12 UNITS SUB-Q (20:13)
[2020-11-25 23:28] LABS: Glucose Point of Care 141 mg/dl (65-105)
[2020-11-26] VITALS (22 sets, daily range): BP systolic 105–163; BP diastolic 72–99; PULSE 57–606; RESP 14–20; TEMP 36.6–37.1; O2SAT 92–100
[2020-11-26] MEDS: cloNIDine HCL 0.1 MG TABLET PO ×2 (01:34→09:45)
[2020-11-26] MEDS: CENTRAL LINE FLUSH 10 ML IV PUSH ×3 (05:06→21:03)
[2020-11-26] MEDS: METOCLOPRAMIDE HCL 10 MG/10 ML SOLN UDC FEED TUBE ×3 (05:06→23:35)
[2020-11-26 05:07] LABS: Glucose Point of Care 135 mg/dl (65-105)
[2020-11-26] MEDS: PANTOPRAZOLE SODIUM IV 40 MG VIAL IV PUSH (09:44)
[2020-11-26] MEDS: carvediloL 12.5 MG TABLET PO ×2 (09:44→20:15)
[2020-11-26] MEDS: amLODIPine BESYLATE 5 MG TABLET 10 MG PO (09:44)
[2020-11-26] MEDS: POLYSACCHARIDE IRON COMPLEX 150 MG CAPSULE FEED TUBE (09:44)
[2020-11-26] MEDS: APIXABAN 5 MG TABLET PO ×2 (09:45→20:15)
[2020-11-26] MEDS: hydrALAZINE HCL 25 MG TABLET 50 MG PO ×3 (09:45→20:15)
[2020-11-26] MEDS: MINERAL OIL/WHITE PETROLATUM OINTMENT 1 APPLIC EACH EYE ×2 (09:46→20:16)
[2020-11-26] MEDS: MICONAZOLE NITRATE 2% CREAM 30 GM TUBE 1 APPLIC TOPICAL ×2 (09:46→20:14)
[2020-11-26] MEDS: TOLNAFTATE 1% POWDER 45 GM BTL 1 APPLIC TOPICAL ×2 (09:46→20:14)
[2020-11-26] MEDS: EUCERIN CREAM 120 GM JAR 1 APPLIC TOPICAL ×2 (09:46→17:39)
[2020-11-26] MEDS: SOD HYPOCHLORITE 1/4 STRENGTH 473 ML 1 APPLIC TOPICAL ×2 (09:46→20:14)
--- NOTE | 2020-11-26 11:32 | PCDIET ---
ICU Rounding Note: Patient tolerating Glucerna 1.2 at 50mL/hr with 30mL water flush every 4 hours. Residuals 150mL and below. Last recorded weight is 147.3kg which is stable. Bowel Motility: BM x 1 today. Labs Reviewed: Glu (135) Meds Noted: Norvasc, Coreg, Catapres, Apresoline, Novolog, Lantus, Reglan, Protonix, Zosyn, Niferex-150 Additional Notes: No change in skin reported. Following daily in ICU rounds. Assessing/reassessing every Tuesday/Tuesday.
[2020-11-26 11:52] LABS: Glucose Point of Care 157 mg/dl (65-105)
--- NOTE | 2020-11-26 14:58 | WPDINTPN ---
Progress Note: A&P Assessment and Plan (1) Acute respiratory failure: Qualifiers: Respiratory failure complication: hypoxia and hypercapnia Qualified Code(s): J96.01 - Acute respiratory failure with hypoxia; J96.02 - Acute respiratory failure with hypercapnia Code(s): J96.00 - Acute respiratory failure, unspecified whether with hypoxia or hypercapnia Status: Acute Assessment and Plan: Secondary to cardiac arrest and aspiration pneumonia. also has pulmonary edema. Intubated 11/01 tracheostomy 11/18 Ventilator settings reviewed. Patient has been tolerating pressure support ventilation, will continue to wean pressure support ventilation to maintain tidal volumes of 450-550ml Chest x-ray reviewed and shows no significant change from yesterday Patient has chronic respiratory failure with severe lungs sick to disease with total lung capacity only 66% Awaiting LTAC placement (2) Cardiac arrest: Code(s): I46.9 - Cardiac arrest, cause unspecified Status: Acute Assessment and Plan: Cardia arrest on 11/01: Etiology unclear, could be secondary to aspiration pneumonia. Patient was found unresponsive on CPAP in his room. Be related to hypercarbia Patient had Dopplers done 2 days ago which were negative for DVT and also was on anticoagulation until day before yesterday making PE unlikely etiology. Patient also was anemic and anticoagulation had to be stopped because of the surgery. Patient also is in acute kidney injury precluding CTA. Patient also morbidly obese and does not fit in our CT scanner Echocardiogram reviewed EKG shows sinus rhythm Head CT was negative for acute change Serial troponin were negative manager monitoring Patient opening his eyes and following some commands (3) Aspiration pneumonia: Qualifiers: Aspiration pneumonia type: unspecified Lung location: unspecified part of lung Code(s): J69.0 - Pneumonitis due to inhalation of food and vomit Status: Acute Assessment and Plan: Sputum and blood cultures. Patient has completed a course of Zosyn from aspiration standpoint but is on antibiotics for his foot wound bacteremia (4) Anoxic brain injury: Code(s): G93.1 - Anoxic brain damage, not elsewhere classified Status: Acute Assessment and Plan: Patient appears to be encephalopathic post code patient has completed TTM protocol for 24hrs -sedation has been on hold since 11/03. -patient tries to open his eyes but does not blink to threat, positive pupillary, corneal, gag, cough reflex. Patient also has spontaneous breathing on pressure support ventilation -no seizure activity noted clinically -11/06: called and placed patient on a waiting list at [facility] and [facility] in [facility]. 11/11 - [facility] refused to accept the patient -neuro consult reviewed - EEG 11/11 Abnormal record due to the absence of normal background rhythm. There is no evidence of paroxysmal activity throughout the tracing consider the possibility of status. Clinical correlation recommended. These abnormalities could be suggestive of underlying organic or metabolic encephalopathy -neurologically patient has shown some improvement over last few days as he intermittently followed commands yesterday. Moving all 4 extremities to pain. It seems that he is now following commands intermittently and is showing some improvement. Continue to hold sedation and monitoring. -improving (5) Diabetic foot infection: Code(s): E11.628 - Type 2 diabetes mellitus with other skin complications; L08.9 - Local infection of the skin and subcutaneous tissue, unspecified Status: Acute Assessment and Plan: x-ray of the foot showed no osteomyelitis. status post debridement ROSA showed no significant arterial occlusive disease vancomycin d/c'd per ID BC-->+Proteus Mirabilis and Morganella morganii ID following, recommendations appreciated Surg
--- NOTE | 2020-11-26 16:38 | PM.IMPN ---
Progress Note: A&P Assessment and Plan (1) Acute respiratory failure: Qualifiers: Respiratory failure complication: hypoxia and hypercapnia Qualified Code(s): J96.01 - Acute respiratory failure with hypoxia; J96.02 - Acute respiratory failure with hypercapnia Code(s): J96.00 - Acute respiratory failure, unspecified whether with hypoxia or hypercapnia Status: Acute Assessment and Plan: patient is a 50-year-old male morbidly obese with history severe lung disease presented with cardiac arrest went into respiratory failure intubated on 10/19 was on ventilator and unable to wean the patient off ventilator and had a tracheostomy on 11/18, unable to provide any review of symptom, waiting transfer to LTAC pending insurance authorization. patient remains clinically stable. able to convey that he is not in acute distress with hand motions; non conversational; still requiring CPAP w/ status post tracheostomy (2) Cardiac arrest: Code(s): I46.9 - Cardiac arrest, cause unspecified Status: Acute Assessment and Plan: Cardia arrest on 11/01: Etiology unclear, could be secondary to aspiration pneumonia. Patient was found unresponsive on CPAP in his room. Be related to hypercarbia (3) Aspiration pneumonia: Qualifiers: Aspiration pneumonia type: unspecified Lung location: unspecified part of lung Code(s): J69.0 - Pneumonitis due to inhalation of food and vomit Status: Acute Assessment and Plan: Sputum and blood cultures. Patient has completed a course of Zosyn from aspiration standpoint but is on antibiotics for his foot wound bacteremia (4) Anoxic brain injury: Code(s): G93.1 - Anoxic brain damage, not elsewhere classified Status: Acute Assessment and Plan: patient was found unresponsive in his room and had a cardiac arrest etiology is uncertain Additional Plan Clinical status unchanged from yesterday, patient is awaiting LTAC placement. Has a tracheostomy in place, and is on pressure support ventilation. Tolerating tube feeds. Not in acute distress, however extensive interview not possible. Stress ulcer prophylaxis with PPI, and DVT prophylaxis with heparin. Time Spent With Patient Time with patient: less than 15 minutes Subjective Date/time seen: 11/26/20 16:38 No meaningful interview possible Review of Systems Review of Systems: No meaningful interview possible Exam Narrative: No meaningful interview possible Const: General: no acute distress Neck: Neck: no JVD Resp: Other: Intubated with tracheostomy Cardio: Rate: regular rate Rhythm: regular rhythm GI: GI Palp: Yes Soft to palpation and No Tenderness to palpation present (GI) Objective Data Vital Signs Vital Signs: Vital Signs - 24 hr 11/25/20 16:47 11/25/20 18:00 11/25/20 19:43 Temperature Pulse Rate 68 71 63 Respiratory Rate 14 Blood Pressure 156/74 H Pulse Oximetry 96 94 94 11/25/20 20:00 11/25/20 20:12 11/25/20 22:00 Temperature 97.9 F Pulse Rate 62 64 62 Respiratory Rate 15 15 Blood Pressure 142/82 H 135/66 Pulse Oximetry 94 95 11/25/20 23:37 11/26/20 00:00 11/26/20 02:00 Temperature 98 F Pulse Rate 59 L 60 62 Respiratory Rate 15 15 Blood Pressure 153/77 H 155/74 H Pulse Oximetry 95 95 95 11/26/20 03:10 11/26/20 04:00 11/26/20 05:20 Temperature 98.7 F Pulse Rate 57 L 57 L 61 Respiratory Rate 14 Blood Pressure 145/72 H Pulse Oximetry 95 96 95 11/26/20 06:00 11/26/20 08:00 11/26/20 08:05 Temperature 98.6 F Pulse Rate 74 69 67 Respiratory Rate 20 14 Blood Pressure 157/72 H 105/85 Pulse Oximetry 98 92 96 11/26/20 09:44 11/26/20 10:00 11/26/20 11:15 Temperature Pulse Rate 606 H 69 61 Respiratory Rate 15 Blood Pressure 144/88 H Pulse Oximetry 96 97 11/26/20 12:00 11/26/20 13:50 Temperature 98.4 F Pulse Rate 63 62 Respiratory Rate 14 Blood Pressure 142/80 H Pulse Oximetry 94 9
[2020-11-26] MEDS: ONDANSETRON INJ 4 MG/2 ML VIAL IV PUSH (17:58)
[2020-11-26 18:02] LABS: Glucose Point of Care 123 mg/dl (65-105)
[2020-11-26] MEDS: ACETAMINOPHEN 325 MG TABLET 650 MG PO (20:14)
[2020-11-26] MEDS: INSULIN GLARGINE (*BKC) 100 UNITS/ML 12 UNITS SUB-Q (20:16)
[2020-11-26 23:34] LABS: Glucose Point of Care 121 mg/dl (65-105)
[2020-11-27] VITALS (22 sets, daily range): BP systolic 136–180; BP diastolic 68–91; PULSE 57–70; RESP 14–17; TEMP 36.7–37.4; O2SAT 99–100
[2020-11-27] MEDS: cloNIDine HCL 0.1 MG TABLET PO (01:31)
[2020-11-27 03:28] LABS: Basophils Absolute Auto 0.1 K/mm3 (0.0-0.1); Basophils Percent Auto 0.9 % (0.2-1.2); Eosinophils Absolute Auto 1.2 K/mm3 (0-0.3); Eosinophils Percent Auto 10.1 % (0-4.4); Hematocrit 30.7 % (42.0-52.0); Immature Granulocyte Absolute 0.08 K/mm3 (0.00-0.031); Immature Granulocyte Percent A 0.7 % (0-0.5); Lymphocytes Absolute Auto 2.45 K/mm3 (0.9-3.2); Lymphocytes Percent Auto 21.2 % (18.3-44.2); Mean Corpuscular HGB Conc 29.3 g/dl (32-36); Mean Corpuscular Volume 95.3 fl (80-100); Mean Platelet Volume 11.6 fl (7.4-10.4); Monocytes Absolute Auto 0.8 K/mm3 (0.1-0.6); Monocytes Percent Auto 6.9 % (2.6-8.5); Neutrophils Absolute Auto 6.9 K/mm3 (1.3-6.7); Neutrophils Percent Auto 60.2 % (45.5-73.1); Platelet Count Result 279 k/mm3 (150-375); Red Blood Count 3.22 M/mm3 (4.6-6.20); Red Cell Distribution Width 15.5 % (11.5-14.5); White Blood Count 11.5 K/mm3 (4.5-10.0)
[2020-11-27 03:55] LABS: Alanine Aminotransferase 80 U/L (4-50); Albumin Level 3.7 g/dL (3.5-5.1); Alkaline Phosphatase 158 U/L (38-126); Anion Gap 7 mmol/L (8-16); Aspartate Amino Transferase 70 U/L (17-59); Bilirubin,Total 0.4 mg/dL (0.2-1.3); Blood Urea Nitrogen 44 mg/dL (9-20); Calcium 9.4 mg/dL (8.4-10.2); Carbon Dioxide 30 mmol/L (22-30); Chloride 108 mmol/L (98-107); Estimated CRCL calculation 49 ml/min; Estimated Glomerular Filt Rate 27; Glucose 132 mg/dL (65-110); Magnesium 1.9 mg/dL (1.6-2.3); Phosphorus 5.4 mg/dL (2.5-4.5); Potassium 4.3 mmol/L (3.4-5.0); Sodium 145 mmol/L (137-145)
[2020-11-27 04:27] LABS: Alveolar/Arterial O2 Gradient 81.5 mmHg; Base Excess ABG 3.1 mEq/l (+/-2.0); Carboxyhemoglobin 0.3 % THb (0-2.0); Fractional Inspired Oxygen 40 %; HCO3 ABG 29.3 mEq/l (22.0-26.0); Methemoglobin ABG 0.4 %THb (0-1.5); Oxygen Content ABG 14.7 %vol (16.0-22.0); Oxygen Saturation ABG 98.7 % (95.0-100.0); Oxyhemoglobin 97.4 % THb (90.0-100.0); PCO2 ABG 52.8 mmHg (35.0-45.0); PO2 FiO2 Ratio Arterial Blood 3.58 %; Reduced Hemoglobin 1.9 %THb (0-5.0); Total Hemoglobin 10.5 g/dL (12.0-18.0); pH ABG 7.362 (7.350-7.450)
[2020-11-27 04:28] LABS: Device VENTILATOR; Modified Allen's Test Pass; Site Drawn RIGHT RADIAL
[2020-11-27 04:29] LABS: Arterial Blood Gas PEEP 5 cmH2O; Arterial Blood Gas Pressure Support 10 cmH2O; Arterial Blood Gas Vent Mode SPONTANEOUS
[2020-11-27] MEDS: METOCLOPRAMIDE HCL 10 MG/10 ML SOLN UDC FEED TUBE ×4 (05:38→23:47)
[2020-11-27] MEDS: CENTRAL LINE FLUSH 10 ML IV PUSH ×3 (05:39→20:43)
[2020-11-27] MEDS: cloNIDine HCL 0.2 MG TABLET PO ×3 (08:31→23:46)
[2020-11-27] MEDS: FAMOTIDINE 20 MG TABLET FEED TUBE ×2 (08:31→20:42)
[2020-11-27] MEDS: hydrALAZINE HCL 25 MG TABLET 50 MG PO ×4 (08:32→20:42)
[2020-11-27] MEDS: carvediloL 12.5 MG TABLET PO ×2 (08:33→20:41)
[2020-11-27] MEDS: POLYSACCHARIDE IRON COMPLEX 150 MG CAPSULE FEED TUBE (08:33)
[2020-11-27] MEDS: APIXABAN 5 MG TABLET PO ×2 (08:33→20:41)
[2020-11-27] MEDS: amLODIPine BESYLATE 5 MG TABLET 10 MG PO (08:34)
[2020-11-27] MEDS: EUCERIN CREAM 120 GM JAR 1 APPLIC TOPICAL ×2 (08:35→18:42)
[2020-11-27] MEDS: MICONAZOLE NITRATE 2% CREAM 30 GM TUBE 1 APPLIC TOPICAL ×2 (08:35→20:42)
[2020-11-27] MEDS: SOD HYPOCHLORITE 1/4 STRENGTH 473 ML 1 APPLIC TOPICAL ×2 (08:35→20:42)
[2020-11-27] MEDS: TOLNAFTATE 1% POWDER 45 GM BTL 1 APPLIC TOPICAL ×2 (08:35→20:43)
--- NOTE | 2020-11-27 09:19 | WPDINTPN ---
Progress Note: A&P Assessment and Plan (1) Acute respiratory failure: Qualifiers: Respiratory failure complication: hypoxia and hypercapnia Qualified Code(s): J96.01 - Acute respiratory failure with hypoxia; J96.02 - Acute respiratory failure with hypercapnia Code(s): J96.00 - Acute respiratory failure, unspecified whether with hypoxia or hypercapnia Status: Acute Assessment and Plan: Secondary to cardiac arrest and aspiration pneumonia. also has pulmonary edema. Intubated 11/01 tracheostomy 11/18 Ventilator settings reviewed. Patient has been tolerating pressure support ventilation, will continue to wean pressure support ventilation to maintain tidal volumes of 450-550ml Chest x-ray reviewed and shows no significant change from yesterday Patient has chronic respiratory failure with severe lungs sick to disease with total lung capacity only 66% Awaiting LTAC placement (2) Cardiac arrest: Code(s): I46.9 - Cardiac arrest, cause unspecified Status: Acute Assessment and Plan: Cardia arrest on 11/01: Etiology unclear, could be secondary to aspiration pneumonia. Patient was found unresponsive on CPAP in his room. Be related to hypercarbia Patient had Dopplers done 2 days ago which were negative for DVT and also was on anticoagulation until day before yesterday making PE unlikely etiology. Patient also was anemic and anticoagulation had to be stopped because of the surgery. Patient also is in acute kidney injury precluding CTA. Patient also morbidly obese and does not fit in our CT scanner Echocardiogram reviewed EKG shows sinus rhythm Head CT was negative for acute change Serial troponin were negative court monitor Patient opening his eyes and following some commands (3) Aspiration pneumonia: Qualifiers: Aspiration pneumonia type: unspecified Lung location: unspecified part of lung Code(s): J69.0 - Pneumonitis due to inhalation of food and vomit Status: Acute Assessment and Plan: Sputum and blood cultures. Patient has completed a course of Zosyn from aspiration standpoint but is on antibiotics for his foot wound bacteremia (4) Anoxic brain injury: Code(s): G93.1 - Anoxic brain damage, not elsewhere classified Status: Acute Assessment and Plan: Patient appears to be encephalopathic post code patient has completed TTM protocol for 24hrs -sedation has been on hold since 11/03. -patient tries to open his eyes but does not blink to threat, positive pupillary, corneal, gag, cough reflex. Patient also has spontaneous breathing on pressure support ventilation -no seizure activity noted clinically -11/06: called and placed patient on a waiting list at [facility] in [facility]. 11/11 - [facility] refused to accept the patient -neuro consult reviewed - EEG 11/11 Abnormal record due to the absence of normal background rhythm. There is no evidence of paroxysmal activity throughout the tracing consider the possibility of status. Clinical correlation recommended. These abnormalities could be suggestive of underlying organic or metabolic encephalopathy -neurologically patient has shown some improvement over last few days as he intermittently followed commands yesterday. Moving all 4 extremities to pain. It seems that he is now following commands intermittently and is showing some improvement. Continue to hold sedation and monitoring. -improving (5) Diabetic foot infection: Code(s): E11.628 - Type 2 diabetes mellitus with other skin complications; L08.9 - Local infection of the skin and subcutaneous tissue, unspecified Status: Acute Assessment and Plan: x-ray of the foot showed no osteomyelitis. status post debridement ROSA showed no significant arterial occlusive disease vancomycin d/c'd per ID BC-->+Proteus Mirabilis and Morganella morganii ID following, recommendations appreciated Surger
--- NOTE | 2020-11-27 10:35 | PCDIET ---
ICU Rounding Note: Patient had emesis last night. RN reporting significant amount of gas. MD ordering alternate formula. Recommended Vital 1.2 at goal of 65mL/hr. MD ordered to start Vital 1.2 at current Glucerna 1.2 rate of 40mL/hr and advance toward goal. MD ordered 60mL water flush every 4 hours. Suggested adding probiotic given antibiotic use. Last recorded weight is 147.6kg which is stable with last review. -I/O. Bowel Motility: Last documented BM on 11/26/20 x 1. Labs Reviewed: WBC (11.5), RBC (3.22), Hgb (9.0), Hct (30.7), Glu (132), BUN (44), Cr (2.5), PO4 (5.4) Meds Noted: Norvasc, Coreg, Catapres, Pepcid, Apresoline, Lantus, Normodyne, Reglan, Zosyn, Niferex-150 Additional Notes: No changes in skin reported. Following daily in ICU rounds. Assessing/reassessing every Tuesday/Tuesday.
[2020-11-27 11:39] LABS: Glucose Point of Care 141 mg/dl (65-105)
--- NOTE | 2020-11-27 18:30 | PM.IMPN ---
Progress Note: A&P Assessment and Plan (1) Acute respiratory failure: Qualifiers: Respiratory failure complication: hypoxia and hypercapnia Qualified Code(s): J96.01 - Acute respiratory failure with hypoxia; J96.02 - Acute respiratory failure with hypercapnia Code(s): J96.00 - Acute respiratory failure, unspecified whether with hypoxia or hypercapnia Status: Acute Assessment and Plan: patient is a 50-year-old male morbidly obese with history severe lung disease presented with cardiac arrest went into respiratory failure intubated on 10/19 was on ventilator and unable to wean the patient off ventilator and had a tracheostomy on 11/18, unable to provide any review of symptom, waiting transfer to LTAC pending insurance authorization. patient remains clinically stable. able to convey that he is not in acute distress with hand motions; non conversational; still requiring CPAP w/ status post tracheostomy (2) Cardiac arrest: Code(s): I46.9 - Cardiac arrest, cause unspecified Status: Acute Assessment and Plan: Cardia arrest on 11/01: Etiology unclear, could be secondary to aspiration pneumonia. Patient was found unresponsive on CPAP in his room. Be related to hypercarbia (3) Aspiration pneumonia: Qualifiers: Aspiration pneumonia type: unspecified Lung location: unspecified part of lung Code(s): J69.0 - Pneumonitis due to inhalation of food and vomit Status: Acute Assessment and Plan: Sputum and blood cultures. Patient has completed a course of Zosyn from aspiration standpoint but is on antibiotics for his foot wound bacteremia (4) Anoxic brain injury: Code(s): G93.1 - Anoxic brain damage, not elsewhere classified Status: Acute Assessment and Plan: patient was found unresponsive in his room and had a cardiac arrest etiology is uncertain Additional Plan Clinical status unchanged from yesterday, patient is awaiting LTAC placement. Has a tracheostomy in place, and is on pressure support ventilation. Tolerating tube feeds. Not in acute distress, however extensive interview not possible. Stress ulcer prophylaxis with PPI, and DVT prophylaxis with heparin. plan to continue Zosyn through December 11. Time Spent With Patient Time with patient: less than 15 minutes Subjective Date/time seen: 11/27/20 18:30 no substantive interview possible. Patient able to use hand gestures to communicate that he is not in acute distress Review of Systems Review of Systems: ROS unobtainable: Yes unobtainable due to medical condition Exam Const: General: no acute distress Neck: Neck: no JVD Resp: Other: breathing with help of mechanical ventilation Cardio: Rate: regular rate Rhythm: regular rhythm GI: GI Palp: Yes Soft to palpation and No Tenderness to palpation present (GI) Objective Data Vital Signs Vital Signs: Vital Signs - 24 hr 11/26/20 19:30 11/26/20 20:00 11/26/20 20:15 Temperature 98.6 F Pulse Rate 67 67 67 Respiratory Rate 17 Blood Pressure 163/99 H Pulse Oximetry 100 100 11/26/20 22:00 11/26/20 23:05 11/27/20 00:00 Temperature 98.0 F Pulse Rate 61 61 62 Respiratory Rate 15 15 Blood Pressure 132/75 152/88 H Pulse Oximetry 100 100 100 11/27/20 01:45 11/27/20 02:00 11/27/20 04:00 Temperature 98.4 F Pulse Rate 57 L 57 L 59 L Respiratory Rate 15 14 Blood Pressure 142/77 H 145/82 H Pulse Oximetry 100 100 99 11/27/20 05:06 11/27/20 06:00 11/27/20 08:00 Temperature 98.2 F Pulse Rate 61 70 63 Respiratory Rate 17 14 Blood Pressure 150/75 H 171/77 H Pulse Oximetry 100 100 100 11/27/20 08:33 11/27/20 10:00 11/27/20 10:24 Temperature Pulse Rate 66 66 64 Respiratory Rate 16 Blood Pressure 143/71 H Pulse Oximetry 100 100 11/27/20 11:44 11/27/20 12:00 11/27/20 12:40 Temperature 99.4 F Pulse Rate 70 67 Respiratory Rate 16 Blood Pressure 165/91 H Pulse Oximetry 10
[2020-11-27 18:44] LABS: Glucose Point of Care 131 mg/dl (65-105)
[2020-11-27] MEDS: MINERAL OIL/WHITE PETROLATUM OINTMENT 1 APPLIC EACH EYE (20:42)
[2020-11-27] MEDS: INSULIN GLARGINE (*BKC) 100 UNITS/ML 12 UNITS SUB-Q (21:38)
[2020-11-27 23:53] LABS: Glucose Point of Care 148 mg/dl (65-105)
[2020-11-28] VITALS (10 sets, daily range): BP systolic 143–171; BP diastolic 73–108; PULSE 61–76; RESP 14–17; TEMP 36.9; O2SAT 99–100
[2020-11-28] MEDS: CENTRAL LINE FLUSH 10 ML IV PUSH (04:52)
[2020-11-28] MEDS: INSULIN ASPART (*BKC) 100 UNITS/ML SUB-Q (05:23)
[2020-11-28] MEDS: METOCLOPRAMIDE HCL 10 MG/10 ML SOLN UDC FEED TUBE (05:24)
[2020-11-28 05:31] LABS: Glucose Point of Care 210 mg/dl (65-105)
--- NOTE | 2020-11-28 09:25 | WPDINTPN ---
Progress Note: A&P Assessment and Plan (1) Acute respiratory failure: Qualifiers: Respiratory failure complication: hypoxia and hypercapnia Qualified Code(s): J96.01 - Acute respiratory failure with hypoxia; J96.02 - Acute respiratory failure with hypercapnia Code(s): J96.00 - Acute respiratory failure, unspecified whether with hypoxia or hypercapnia Status: Acute Assessment and Plan: Secondary to cardiac arrest and aspiration pneumonia. also has pulmonary edema. Intubated 11/01 tracheostomy 11/18 Ventilator settings reviewed. Patient has been tolerating pressure support ventilation, will continue to wean pressure support ventilation to maintain tidal volumes of 450-550ml Currently on PSV of 10 or 5 Chest x-ray reviewed and shows no significant change from yesterday Patient has chronic respiratory failure with severe lungs sick to disease with total lung capacity only 66% Awaiting LTAC placement (2) Cardiac arrest: Code(s): I46.9 - Cardiac arrest, cause unspecified Status: Acute Assessment and Plan: Cardia arrest on 11/01: Etiology unclear, could be secondary to aspiration pneumonia. Patient was found unresponsive on CPAP in his room. Be related to hypercarbia Patient had Dopplers done 2 days ago which were negative for DVT and also was on anticoagulation until day before yesterday making PE unlikely etiology. Patient also was anemic and anticoagulation had to be stopped because of the surgery. Patient also is in acute kidney injury precluding CTA. Patient also morbidly obese and does not fit in our CT scanner Echocardiogram reviewed EKG shows sinus rhythm Head CT was negative for acute change Serial troponin were negative color television console monitor Patient opening his eyes and following some commands (3) Aspiration pneumonia: Qualifiers: Aspiration pneumonia type: unspecified Lung location: unspecified part of lung Code(s): J69.0 - Pneumonitis due to inhalation of food and vomit Status: Acute Assessment and Plan: Sputum and blood cultures. Patient has completed a course of Zosyn from aspiration standpoint but is on antibiotics for his foot wound bacteremia (4) Anoxic brain injury: Code(s): G93.1 - Anoxic brain damage, not elsewhere classified Status: Acute Assessment and Plan: Patient appears to be encephalopathic post code patient has completed TTM protocol for 24hrs -sedation has been on hold since 11/03. -patient tries to open his eyes but does not blink to threat, positive pupillary, corneal, gag, cough reflex. Patient also has spontaneous breathing on pressure support ventilation -no seizure activity noted clinically -11/06: called and placed patient on a waiting list at [facility] in [facility]. 11/11 - [facility] refused to accept the patient -neuro consult reviewed - EEG 11/11 Abnormal record due to the absence of normal background rhythm. There is no evidence of paroxysmal activity throughout the tracing consider the possibility of status. Clinical correlation recommended. These abnormalities could be suggestive of underlying organic or metabolic encephalopathy -neurologically patient has shown some improvement over last few days as he intermittently followed commands yesterday. Moving all 4 extremities to pain. It seems that he is now following commands intermittently and is showing some improvement. Continue to hold sedation and monitoring. -improving (5) Diabetic foot infection: Code(s): E11.628 - Type 2 diabetes mellitus with other skin complications; L08.9 - Local infection of the skin and subcutaneous tissue, unspecified Status: Acute Assessment and Plan: x-ray of the foot showed no osteomyelitis. status post debridement ROSA showed no significant arterial occlusive disease vancomycin d/c'd per ID BC-->+Proteus Mirabilis and Morganella morganii ID following, recomm
[2020-11-28] MEDS: cloNIDine HCL 0.2 MG TABLET PO (09:36)
[2020-11-28] MEDS: APIXABAN 5 MG TABLET PO (09:36)
[2020-11-28] MEDS: POLYSACCHARIDE IRON COMPLEX 150 MG CAPSULE FEED TUBE (09:36)
[2020-11-28] MEDS: amLODIPine BESYLATE 5 MG TABLET 10 MG PO (09:36)
[2020-11-28] MEDS: MINERAL OIL/WHITE PETROLATUM OINTMENT 1 APPLIC EACH EYE (09:37)
[2020-11-28] MEDS: hydrALAZINE HCL 25 MG TABLET 50 MG PO (09:37)
[2020-11-28] MEDS: SOD HYPOCHLORITE 1/4 STRENGTH 473 ML 1 APPLIC TOPICAL (09:37)
[2020-11-28] MEDS: carvediloL 12.5 MG TABLET PO (09:37)
[2020-11-28] MEDS: EUCERIN CREAM 120 GM JAR 1 APPLIC TOPICAL (09:37)
[2020-11-28] MEDS: FAMOTIDINE 20 MG TABLET FEED TUBE (09:37)
[2020-11-28] MEDS: TOLNAFTATE 1% POWDER 45 GM BTL 1 APPLIC TOPICAL (09:38)
--- NOTE | 2020-11-28 10:00 | PC.NURSE ---
Report called to EMMA Starr at [facility] in [place], [place].
[2020-11-28] MEDS: FUROSEMIDE 40 MG TABLET PO ×2 (10:08→10:10)
[2020-11-28] MEDS: MICONAZOLE NITRATE 2% CREAM 30 GM TUBE 1 APPLIC TOPICAL (10:10)
--- NOTE | 2020-11-28 10:21 | PM.DS ---
DS: Admitting Diagnosis Discharge Date 11/30/20 Admitting Diagnosis (1) Diabetic foot infection: Code(s): E11.628 - Type 2 diabetes mellitus with other skin complications; L08.9 - Local infection of the skin and subcutaneous tissue, unspecified Status: Acute (2) Acute hyperkalemia: Code(s): E87.5 - Hyperkalemia Status: Acute (3) Diabetes mellitus with diabetic nephropathy, with long-term current use of insulin: Qualifiers: Diabetes mellitus type: type 2 Qualified Code(s): E11.21 - Type 2 diabetes mellitus with diabetic nephropathy; Z79.4 - market relationship manager (current) use of insulin Code(s): E11.21 - Type 2 diabetes mellitus with diabetic nephropathy; Z79.4 - market relationship manager (current) use of insulin Status: Acute (4) Obesity hypoventilation syndrome: Code(s): E66.2 - Morbid (severe) obesity with alveolar hypoventilation DS: Discharge Diagnosis Discharge Diagnosis (1) Vomiting: Code(s): R11.10 - Vomiting, unspecified Status: Acute (2) Diabetes: Code(s): E11.9 - Type 2 diabetes mellitus without complications Status: Acute (3) Stage 3b chronic kidney disease: Code(s): N18.32 - Chronic kidney disease, stage 3b Status: Chronic (4) Polyuria: Code(s): R35.8 - Other polyuria Status: Acute (5) Acute on chronic renal failure: Code(s): N17.9 - Acute kidney failure, unspecified; N18.9 - Chronic kidney disease, unspecified Status: Acute (6) Hemoptysis: Code(s): R04.2 - Hemoptysis Status: Acute (7) Anoxic brain injury: Code(s): G93.1 - Anoxic brain damage, not elsewhere classified Status: Acute (8) Aspiration pneumonia: Qualifiers: Aspiration pneumonia type: unspecified Lung location: unspecified part of lung Code(s): J69.0 - Pneumonitis due to inhalation of food and vomit Status: Acute (9) Acute respiratory failure: Qualifiers: Respiratory failure complication: hypoxia and hypercapnia Qualified Code(s): J96.01 - Acute respiratory failure with hypoxia; J96.02 - Acute respiratory failure with hypercapnia Code(s): J96.00 - Acute respiratory failure, unspecified whether with hypoxia or hypercapnia Status: Acute (10) Cardiac arrest: Code(s): I46.9 - Cardiac arrest, cause unspecified Status: Acute (11) Bacteremia: Code(s): R78.81 - Bacteremia Status: Acute (12) Ulcer of left heel: Code(s): L97.429 - Non-pressure chronic ulcer of left heel and midfoot with unspecified severity Status: Chronic (13) Anticoagulant long-term use: Code(s): Z79.01 - market relationship manager (current) use of anticoagulants Status: Acute (14) Morbid obesity: Code(s): E66.01 - Morbid (severe) obesity due to excess calories Status: Acute (15) Transaminitis: Code(s): R74.01 - Elevation of levels of liver transaminase levels Status: Acute (16) Obesity hypoventilation syndrome: Code(s): E66.2 - Morbid (severe) obesity with alveolar hypoventilation Status: Acute (17) Diastolic HF (heart failure): Qualifiers: Heart failure chronicity: chronic Qualified Code(s): I50.32 - Chronic diastolic (congestive) heart failure Code(s): I50.30 - Unspecified diastolic (congestive) heart failure Status: Acute (18) Diabetic foot infection: Code(s): E11.628 - Type 2 diabetes mellitus with other skin complications; L08.9 - Local infection of the skin and subcutaneous tissue, unspecified Status: Acute (19) SHAKIRA (acute kidney injury): Code(s): N17.9 - Acute kidney failure, unspecified Status: Acute (20) Acute hyperkalemia: Code(s): E87.5 - Hyperkalemia Status: Acute (21) Diabetes mellitus with diabetic nephropathy, with long-term current use of insulin: Qualifiers: Diabetes mellitus type: type 2 Qualified Code(s): E11.21 - Type 2 diabetes mellitu
--- NOTE | 2020-11-28 11:41 | PC.NURSE ---
Updated patient's uncle on transfer.
== END 2020-11-28 11:20 | DRG 4 ==
LOC: ANHED 17:03 → ANH2MED 22:09 → ANHICU 11-05 09:18
PROVIDERS: Internal Medicine; Internal Medicine Gastroenterology; Internal Medicine Nephrology; Otolaryngology; Physician Assistant; Surgery; Admitting Provider Internal Medicine; Emergency Provider Emergency Medicine; PCP Internal Medicine; Visit Provider Hospitalist
PROC: 0KBW0ZZ Excision of Left Foot Muscle, Open Approach (ICD-10-PCS; principal; 2020-10-31 13:30)
PROC: 0DJ08ZZ Inspection of Upper Intestinal Tract, Via Natural or Artificial Opening Endoscopic (ICD-10-PCS; CPT 43235; principal; 2020-11-17 14:15)
PROC: 0DH63UZ Insertion of Feeding Device into Stomach, Percutaneous Approach (ICD-10-PCS; CPT 43246; 2020-11-17 14:15)
PROC: 0B110F4 Bypass Trachea to Cutaneous with Tracheostomy Device, Open Approach (ICD-10-PCS; principal; 2020-11-18 11:45)
DX: E11.628 Type 2 diabetes mellitus with other skin complications (principal); L08.9 Local infection of the skin and subcutaneous tissue, unspecified; L97.429 Non-pressure chronic ulcer of left heel and midfoot with unspecified severity; Z89.422 Acquired absence of other left toe(s); Z89.421 Acquired absence of other right toe(s); D63.1 Anemia in chronic kidney disease; J44.9 Chronic obstructive pulmonary disease, unspecified; Z79.01 Long term (current) use of anticoagulants; E11.21 Type 2 diabetes mellitus with diabetic nephropathy; Z79.4 Long term (current) use of insulin; E11.42 Type 2 diabetes mellitus with diabetic polyneuropathy; K21.9 Gastro-esophageal reflux disease without esophagitis; Z68.41 Body mass index [BMI] 40.0-44.9, adult; M19.90 Unspecified osteoarthritis, unspecified site; E11.52 Type 2 diabetes mellitus with diabetic peripheral angiopathy with gangrene; I96 Gangrene, not elsewhere classified; Z87.891 Personal history of nicotine dependence; N17.9 Acute kidney failure, unspecified; E87.5 Hyperkalemia; K76.0 Fatty (change of) liver, not elsewhere classified; R32 Unspecified urinary incontinence; K43.9 Ventral hernia without obstruction or gangrene; I82.5Y3 Chronic embolism and thrombosis of unspecified deep veins of proximal lower extremity, bilateral; Z99.81 Dependence on supplemental oxygen; I83.12 Varicose veins of left lower extremity with inflammation; I83.11 Varicose veins of right lower extremity with inflammation; E66.2 Morbid (severe) obesity with alveolar hypoventilation; I13.0 Hypertensive heart and chronic kidney disease with heart failure and stage 1 through stage 4 chronic kidney disease, or unspecified chronic kidney disease; I50.32 Chronic diastolic (congestive) heart failure; E11.22 Type 2 diabetes mellitus with diabetic chronic kidney disease; R74.01 Elevation of levels of liver transaminase levels; R78.81 Bacteremia; I89.0 Lymphedema, not elsewhere classified; J69.0 Pneumonitis due to inhalation of food and vomit; G93.1 Anoxic brain damage, not elsewhere classified; B96.4 Proteus (mirabilis) (morganii) as the cause of diseases classified elsewhere; J96.20 Acute and chronic respiratory failure, unspecified whether with hypoxia or hypercapnia; I46.8 Cardiac arrest due to other underlying condition; R35.8 Other polyuria; R04.2 Hemoptysis; N17.0 Acute kidney failure with tubular necrosis; N18.32 Chronic kidney disease, stage 3b; K29.70 Gastritis, unspecified, without bleeding
CPT/HCPCS: 36415; 36569; 36600; 43246; 70450; 71045; 71250; 73630; 74018; 74019; 76705; 80048; 80053; 80069; 80074; 80076; 81001; 82140; 82375; 82436; 82570; 82805; 82948; 83001; 83050; 83605; 83690; 83735; 83880; 83883; 83930; 83935; 84100; 84133; 84146; 84156; 84300; 84443; 84484; 85025; 85027; 85610; 85730; 85999; 86140; 86255; 86334; 86335; 87040; 87077; 87186; 92950; 93306; 93922; 93970; 94002; 94003; 94640; 95816; 96361; 96365; 96366; 96367; 96372; 99285; A9270; C1751; C8929; C9113; G0378; G0379; J0171; J0360; J1265; J1644; J1650; J1815; J1940; J2250; J2270; J2405; J2543; J2704; J2765; J3010; J3370; J7030; J7040; J7120; Q9957